=== PATIENT | male | born 1950 | race Caucasian/White ===

== ENCOUNTER 2016-12-08 04:47 | Inpatient (IN) | payer OTHER, MEDICARE ==
[2016-12-08] VITALS (8 sets, daily range): BP systolic 133–210; BP diastolic 91–129; PULSE 67–132; RESP 15–20; TEMP 97.9; O2SAT 96–99
[~2016-12-08] VITALS: Ht 177.8 cm; Wt 90.6 kg
[~2016-12-08 04:47] MED LIST: ASPI325T PO; BENZ1 PO; CLON.1 PO; FURO1TAB93 PO; HALO10 PO; METO100 PO; METO25 PO; NIFE1TAB85 PO; QUET200 PO
[2016-12-08] MEDS ORDERED: CLON0.1T PO (06:05)
[2016-12-08] MEDS ORDERED: BENZ1TAB PO (06:05)
[2016-12-08] MEDS ORDERED: METO50TA PO (06:05)
[2016-12-08] MEDS ORDERED: NIFE10CA PO (06:05)
[2016-12-08] MEDS ORDERED: HALO10TA PO (06:05)
[2016-12-08] MEDS ORDERED: ASPI1TAB69 PO (06:05)
--- NOTE | 2016-12-08 06:41 | PD ---
HPI Chief Complaint: Psychiatric Symptoms Time Seen by Provider: 05:56 Travel History International Travel<30 days: No Contact w/Intl Traveler<30days: No Traveled to known affect area: No PFSH Past Medical History Asthma: No Atrial Fibrillation: Yes Blood Disorders: No Anxiety: Yes Depression: Yes Heart Rhythm Problems: Yes Cardiovascular Problems: Yes (AFIB) Chemotherapy: No Chest Pain: No Congestive Heart Failure: No COPD: Yes Cerebrovascular Accident: No Diminished Hearing: No Glaucoma: No Hypertension: Yes Psychiatric: Yes (Schizoaffective Disorder) Myocardial Infarction: No Radiation Therapy: No Schizophrenia: Yes Sickle Cell Disease: No Sleep Apnea: No Past Surgical History AICD: No Ear Surgery: No Eye Surgery: Yes (right) Genitourinary Surgery: No Gynecologic Surgery: No Joint Replacement: No Oral Surgery: No Social History Alcohol Use: No Tobacco Use: Yes (3-4PPD) Substance Use: No Allergies-Medications (Allergen,Severity, Reaction): Coded Allergies: No Known Allergies (Verified , 12/08/16) Per pt. Reported Meds & Prescriptions Reported Meds & Active Scripts Active Reported Nifedipine 10 Mg Cap 30 Mg PO DAILY Clonidine (Clonidine HCl) 0.1 Mg Tab 0.1 Mg PO Q8 Benztropine (Benztropine Mesylate) 1 Mg Tab 1 Mg PO DAILY Haloperidol 10 Mg Tab 10 Mg PO BID Metoprolol Tartrate 50 Mg Tab 50 Mg PO BID Aspirin 81 Mg Tabdr 81 Mg PO DAILY Data Data Last Documented VS Vital Signs Date Time Temp Pulse Resp B/P Pulse Ox O2 Delivery O2 Flow Rate FiO2 12/08/16 04:48 97.9 85 15 200/127 96 Room Air Orders Complete Blood Count With Diff (12/08/16 06:11) Comprehensive Metabolic Panel (12/08/16 06:11) Alcohol (Ethanol) (12/08/16 06:11) Drug Screen, Random Urine (12/08/16 06:11) Sabiha Che MD Dec 08, 2016 06:41
--- NOTE | 2016-12-08 06:43 | PD ---
HPI Chief Complaint: Psychiatric Symptoms Time Seen by Provider: 05:56 Travel History International Travel<30 days: No Contact w/Intl Traveler<30days: No Traveled to known affect area: No History of Present Illness HPI This is a 66-year-old male who has a history of schizophrenia who presents to the emergency department reporting that he needs his psychiatric medications adjusted. He says he's been off of his medications for months. He doesn't know what medicines he is supposed to be on. He doesn't have prescribed these medicines for him. He doesn't provide much history. PFSH Past Medical History Asthma: No Atrial Fibrillation: Yes Blood Disorders: No Anxiety: Yes Depression: Yes Heart Rhythm Problems: Yes Cardiovascular Problems: Yes (AFIB) Chemotherapy: No Chest Pain: No Congestive Heart Failure: No COPD: Yes Cerebrovascular Accident: No Diminished Hearing: No Glaucoma: No Hypertension: Yes Psychiatric: Yes (Schizoaffective Disorder) Myocardial Infarction: No Radiation Therapy: No Schizophrenia: Yes Sickle Cell Disease: No Sleep Apnea: No Past Surgical History AICD: No Ear Surgery: No Eye Surgery: Yes (right) Genitourinary Surgery: No Gynecologic Surgery: No Joint Replacement: No Oral Surgery: No Social History Alcohol Use: No Tobacco Use: Yes (3-4PPD) Substance Use: No Allergies-Medications (Allergen,Severity, Reaction): Coded Allergies: No Known Allergies (Verified , 12/08/16) Per pt. Reported Meds & Prescriptions Reported Meds & Active Scripts Active Reported Nifedipine 10 Mg Cap 30 Mg PO DAILY Clonidine (Clonidine HCl) 0.1 Mg Tab 0.1 Mg PO Q8 Benztropine (Benztropine Mesylate) 1 Mg Tab 1 Mg PO DAILY Haloperidol 10 Mg Tab 10 Mg PO BID Metoprolol Tartrate 50 Mg Tab 50 Mg PO BID Aspirin 81 Mg Tabdr 81 Mg PO DAILY Review of Systems ROS Limitations: Poor Historian Physical Exam Narrative GENERAL: Disheveled SKIN: Warm and dry. HEAD: Atraumatic. Normocephalic. EYES: Pupils equal and round. No injection or drainage. ENT: Moist mucous membranes NECK: Trachea midline. CARDIOVASCULAR: Regular rate and rhythm. No murmur appreciated. RESPIRATORY: Clear to auscultation. Breath sounds equal bilaterally. GASTROINTESTINAL: Abdomen soft, non-tender, nondistended. MUSCULOSKELETAL: No obvious deformities. NEUROLOGICAL: Awake and alert. No obvious cranial nerve deficits. Moving all extremities. PSYCHIATRIC: Poor eye contact, flat affect, thought blocking Data Data Last Documented VS Vital Signs Date Time Temp Pulse Resp B/P Pulse Ox O2 Delivery O2 Flow Rate FiO2 12/08/16 04:48 97.9 85 15 200/127 96 Room Air Orders Complete Blood Count With Diff (12/08/16 06:11) Comprehensive Metabolic Panel (12/08/16 06:11) Alcohol (Ethanol) (12/08/16 06:11) Drug Screen, Random Urine (12/08/16 06:11) MDM Medical Decision Making Medical Screen Exam Complete: Yes Emergency Medical Condition: Yes Interpretation(s) Afebrile, no tachycardia, hypertensive Differential Diagnosis Schizophrenia, psychosis, substance intoxication Narrative Course This is a 66-year-old male with a history of schizophrenia who reportedly has been off of his medications for one month. He provides very little history but is quite disorganized. He makes poor eye contact. I suspect he will require psychiatric admission. Labs will be obtained and will be followed up by oncoming provider. If normal patient can be medically cleared and evaluated by psychiatry. Sabiha Che MD Dec 08, 2016 06:43
[2016-12-08 06:58] LABS: AUTOMATED NEUTROPHIL # 4.9 TH/MM3 (1.8-7.7); BASOPHIL # 0.1 TH/MM3 (0-0.2); BASOPHIL % 1.6 % (0.0-2.0); EOSINOPHIL # 0.1 TH/MM3 (0-0.4); EOSINOPHIL % 0.9 % (0.0-4.0); HEMATOCRIT 44.3 % (39.0-51.0); HEMO FLAGS DIFF FINAL; LYMPH % 18.3 % (9.0-44.0); LYMPHOCYTE # 1.3 TH/MM3 (1.0-4.8); MEAN CELL VOLUME 85.2 FL (80.0-100.0); MEAN CORPUSCULAR HEMOGLOBIN 28.8 PG (27.0-34.0); MEAN CORPUSCULAR HGB CONC 33.8 % (32.0-36.0); MONO % 7.5 % (0.0-8.0); NEUT % 71.7 % (16.0-70.0); PLATELET COUNT 134 TH/MM3 (150-450); RED BLOOD COUNT 5.21 MIL/MM3 (4.50-5.90); RED CELL DISTRIBUTION WIDTH 13.8 % (11.6-17.2); WHITE BLOOD COUNT 6.9 TH/MM3 (4.0-11.0)
[2016-12-08 07:25] LABS: ANION GAP 10 MEQ/L (5-15)
[2016-12-08 07:29] LABS: ALKALINE PHOSPHATASE 64 U/L (45-117); ALT (GPT) 20 U/L (12-78); AST (GOT) 14 U/L (15-37); BLOOD UREA NITROGEN 13 MG/DL (7-18); CHLORIDE 109 MEQ/L (98-107); GLOMERULAR FILTRATION RATE 52 ML/MIN (>89); POTASSIUM 3.5 MEQ/L (3.5-5.1); SODIUM (NA) 142 MEQ/L (136-145); TOTAL BILIRUBIN ADULT 0.8 MG/DL (0.2-1.0)
[2016-12-08] MEDS ORDERED: cloNIDine HCL 0.1 MG TAB PO ONE (07:30)
--- NOTE | 2016-12-08 07:35 | PD ---
Physical Exam Date Seen by Provider: Dec 08, 2016 Time Seen by Provider: 07:15 Narrative Patient signed out to me at 7 AM awaiting lab work for medical clearance. Laboratory Tests Test 12/08/16 06:40 Platelet Count 134 TH/MM3 (150-450) Neutrophils (%) (Auto) 71.7 % (16.0-70.0) Chloride Level 109 MEQ/L (98-107) Creatinine 1.37 MG/DL (0.60-1.30) Estimat Glomerular Filtration 52 ML/MIN (>89) Rate Random Glucose 147 MG/DL (74-106) Aspartate Amino Transf 14 U/L (15-37) (AST/SGOT) Labwork unremarkable for significant metabolic issues. Vital signs are stable in the ER. Patient is medically cleared as previously discussed with Dr. Che. Data Data Last Documented VS Vital Signs Date Time Temp Pulse Resp B/P Pulse Ox O2 Delivery O2 Flow Rate FiO2 12/08/16 07:00 189/102 12/08/16 04:48 97.9 85 15 96 Room Air Orders Complete Blood Count With Diff (12/08/16 06:11) Comprehensive Metabolic Panel (12/08/16 06:11) Alcohol (Ethanol) (12/08/16 06:11) Drug Screen, Random Urine (12/08/16 06:11) Clonidine (Catapres) (12/08/16 07:30) Labs Laboratory Tests Test 12/08/16 06:40 White Blood Count 6.9 TH/MM3 Red Blood Count 5.21 MIL/MM3 Hemoglobin 15.0 GM/DL Hematocrit 44.3 % Mean Corpuscular Volume 85.2 FL Mean Corpuscular Hemoglobin 28.8 PG Mean Corpuscular Hemoglobin 33.8 % Concent Red Cell Distribution Width 13.8 % Platelet Count 134 TH/MM3 Mean Platelet Volume 10.6 FL Neutrophils (%) (Auto) 71.7 % Lymphocytes (%) (Auto) 18.3 % Monocytes (%) (Auto) 7.5 % Eosinophils (%) (Auto) 0.9 % Basophils (%) (Auto) 1.6 % Neutrophils # (Auto) 4.9 TH/MM3 Lymphocytes # (Auto) 1.3 TH/MM3 Monocytes # (Auto) 0.5 TH/MM3 Eosinophils # (Auto) 0.1 TH/MM3 Basophils # (Auto) 0.1 TH/MM3 CBC Comment DIFF FINAL Differential Comment Sodium Level 142 MEQ/L Potassium Level 3.5 MEQ/L Chloride Level 109 MEQ/L Carbon Dioxide Level 23.0 MEQ/L Anion Gap 10 MEQ/L Blood Urea Nitrogen 13 MG/DL Creatinine 1.37 MG/DL Estimat Glomerular Filtration 52 ML/MIN Rate Random Glucose 147 MG/DL Calcium Level 9.0 MG/DL Total Bilirubin 0.8 MG/DL Aspartate Amino Transf 14 U/L (AST/SGOT) Alanine Aminotransferase 20 U/L (ALT/SGPT) Alkaline Phosphatase 64 U/L Total Protein 6.5 GM/DL Albumin 3.5 GM/DL Ethyl Alcohol Level LESS THAN 3 MG/DL [facility] Medical Record Reviewed: Yes Supervised Visit with JOANA: No Diagnosis Primary Impression: Schizoaffective disorder Condition: Stable Sulema Aviles MD Dec 08, 2016 07:35
[2016-12-08 10:28] LABS: AMPHETAMINE, URINE NEG (NEG); BARBITURATES, URINE NEG (NEG); COCAINE, URINE NEG (NEG)
--- NOTE | 2016-12-08 16:46 | PD ---
History of Present Illness Chief Complaint: Psychiatric Symptoms Time Seen by Provider: 16:45 Travel History International Travel<30 Days: No Contact w/Intl Traveler<30days: No Known affected area: No History of Present Illness: History of Present Illness HPI This is a 66-year-old male who has a history of schizophrenia who presents to the emergency department reporting that he needs his psychiatric medications adjusted. He says he's been off of his medications for months. He doesn't know what medicines he is supposed to be on. He doesn't have prescribed these medicines for him. He doesn't provide much history. Current toxicology is negative for any substances Patient is seen in main ED. He appears internally stimulated . He is having difficulty focusing as well as appears paranoid. He is restless with akathisia and he keeps sitting and standing up during the visit. He is unable to provide any further information and it is determined that he requires continued observation and care. I will place him under a BA at this time. ON LICENSE OF [facility] Past Medical History Asthma: No Atrial Fibrillation: Yes Blood Disorders: No Anxiety: Yes Depression: Yes Heart Rhythm Problems: Yes Cardiovascular Problems: Yes (AFIB) Chemotherapy: No Chest Pain: No Congestive Heart Failure: No COPD: Yes Cerebrovascular Accident: No Diminished Hearing: No Glaucoma: No Hypertension: Yes Psychiatric: Yes (Schizoaffective Disorder) Myocardial Infarction: No Radiation Therapy: No Schizophrenia: Yes Sickle Cell Disease: No Sleep Apnea: No Past Surgical History AICD: No Ear Surgery: No Eye Surgery: Yes (right) Genitourinary Surgery: No Gynecologic Surgery: No Joint Replacement: No Oral Surgery: No Psychiatric History Psychiatric History Hx Psychiatric Treatment: Patient has a long psychiatric history with this facility dating back to 2005. Patient has a history of medication and treatment noncompliance with disruptive and aggressive behaviors. Patient reports that he is seen at [facility] for medication management. History of Inpatient Treatment: Yes Social History unable to obtain Hx Alcohol Use: No Hx Tobacco Use: Yes (3-4PPD) Hx Substance Use: No Other Substances Used: Denies Hx of Substance Use Treatment: No Family Psychiatric History unable to obtain Allergies-Medications (Allergen,Severity, Reaction): Coded Allergies: No Known Allergies (Verified , 12/08/16) Per pt. Reported Meds & Prescriptions Reported Meds & Active Scripts Active Reported Nifedipine 10 Mg Cap 30 Mg PO DAILY Clonidine (Clonidine HCl) 0.1 Mg Tab 0.1 Mg PO Q8 Benztropine (Benztropine Mesylate) 1 Mg Tab 1 Mg PO DAILY Haloperidol 10 Mg Tab 10 Mg PO BID Metoprolol Tartrate 50 Mg Tab 50 Mg PO BID Aspirin 81 Mg Tabdr 81 Mg PO DAILY Review of Systems ROS Limitations: Clinical Condition, Psychotic Exam Exam Limitations: Psychotic Alert: Yes [place]: Person Affect: Other (appears afrraid) Eye Contact: Fleeting Memory Intact: Comment (unable to complete) MDM Medical Decision Making Medical Record Reviewed: Yes Assessment/Plan At this time a BA will be completed. He requires inpatietn care at this time or at least observation and stabilization in J pod until further evaluation. Orders Complete Blood Count With Diff (12/08/16 06:11) Comprehensive Metabolic Panel (12/08/16 06:11) Alcohol (Ethanol) (12/08/16 06:11) Drug Screen, Random Urine (12/08/16 06:11) Clonidine (Catapres) (12/08/16 07:30) Psych Screen (12/08/16 12:46) Results Vital Signs Date Time Temp Pulse Resp B/P Pulse Ox O2 Delivery O2 Flow Rate FiO2 12/08/16 10:00 18 154/91 96 Room Air 12/08/16 07:00 189/102 12/08/16 04:48 97.9 85 15 200/127 96 Room Air Laboratory Tests Test 12/08/16 12/08/16 06:40 10:00 White Blood Count 6.9 Red Blood Count 5.21 Hemoglobin 15.0 Hematocrit 44.3 Mean Corpuscular Volume 85.2 Mean Corpuscular Hemoglobin 28.8 Mean Corpuscular Hemoglobin 33.8 Concent Red Cell Distribution Width 13.8 Platelet Count 134 Mean Platelet Volume 10.6 Neutrophils (%) (Auto) 71.7 Lymphocytes (%) (Auto) 18.3 Monocytes (%) (Auto) 7.5 Eosinophils (%) (Auto) 0.9 Basophils (%) (Auto) 1.6 Neutrophils # (Auto) 4.9 Lymphocytes # (Auto) 1.3 Monocytes # (Auto) 0.5 Eosinophils # (Auto) 0.1 Basophils # (Auto) 0.1 CBC Comment DIFF FINAL Differential Comment Sodium Level 142 Potassium Level 3.5 Chloride Level 109 Carbon Dioxide Level 23.0 Anion Gap 10 Blood Urea Nitrogen 13 Creatinine 1.37 Estimat Glomerular Filtration 52 Rate Random Glucose 147 Calcium Level 9.0 Total Bilirubin 0.8 Aspartate Amino Transf 14 (AST/SGOT) Alanine Aminotransferase 20 (ALT/SGPT) Alkaline Phosphatase 64 Total Protein 6.5 Albumin 3.5 Ethyl Alcohol Level LESS THAN 3 Urine Opiates Screen NEG Urine Barbiturates Screen NEG Urine Amphetamines Screen NEG Urine Benzodiazepines Screen NEG Urine Cocaine Screen NEG Urine Cannabinoids Screen NEG Diagnosis Primary Impression: Schizoaffective disorder Condition: Stable Problem Qualifiers Primary Impression: Schizoaffective disorder Qualified Code: F25.9 - Schizoaffective disorder, unspecified type Kylie Zamora Dec 08, 2016 16:46
[2016-12-08] MEDS ORDERED: cloNIDine HCL 0.2 MG TAB PO ONE (18:45)
[2016-12-08] MEDS: METOPROLOL TARTRATE 50 MG TAB PO SCH (19:24)
[2016-12-08] MEDS: BENZTROPINE MESYLATE 1 MG TAB PO SCH (19:24)
[2016-12-08] MEDS: HALOPERIDOL 10 MG TAB PO SCH (19:24)
[2016-12-08] MEDS: cloNIDine HCL 0.1 MG TAB PO SCH (21:55)
[2016-12-09] MEDS ORDERED: LORazepam 2 MG/ML VIAL - age > 65 yrs IM PRN (00:45)
[2016-12-09] MEDS ORDERED: diphenhydrAMINE HCL 50 MG/ML VIAL - HS PRN IM (00:45)
[2016-12-09] MEDS ORDERED: ACETAMINOPHEN 325 MG TAB PO PRN (00:45)
[2016-12-09] MEDS ORDERED: ALUMINUM/MAGNESIUM/SIMETH 30 ML CUP PO PRN (00:45)
[2016-12-09] MEDS ORDERED: MAGNESIUM HYDROXIDE SUSP 30 ML CUP PO PRN (00:45)
[2016-12-09 00:55] VITALS: BP 153/90; PULSE 97; RESP 17; TEMP 98.5; O2SAT 97
[2016-12-09] MEDS: cloNIDine HCL 0.1 MG TAB PO SCH ×3 (05:51→20:58)
[2016-12-09 06:26] VITALS: BP 140/79; PULSE 76; RESP 17; TEMP 97.9; O2SAT 95
--- NOTE | 2016-12-09 08:55 | HHI.HP ---
Provisional Diagnosis Admission Date Dec 09, 2016 at 00:24 [place] I. Skis affective disorder depressed [place] II. Passive-dependent trait [place] III. Please see the emergency room evaluation [place] IV. Moderate stress [place] V. GAF of 40 Certification of Person's Competence To Provide Express and Informed Consent I have personally examined Luis Daniel Desir , a person being served at [facility] on, Dec 09, 2016 08:48. Express and informed consent means consent voluntarily given in writing, by a competent person, after sufficient explanation and disclosure of the subject matter involved to enable the person to make a knowing and willful decision without any element of force, fraud, deceit, duress, or other form of constraint or coercion. This person is 18 years of age or older, is not now known to be incompetent to consent to treatment with a guardian advocate, and does not have a health care surrogate or proxy currently making medical treatment decisions. I have found this person to be one of the following: [x] Competent to provide express and informed consent, as defined above, for voluntary admission to this facility and is competent to provide express and informed consent for treatment. He/she has the consistent capacity to make well reasoned, willful, and knowing decisions concerning his or her medical or mental health treatment. The person fully and consistently understands the purpose of the admission for examination/placement and is fully capable of personally exercising all rights [place] Incompetent to provide express and informed consent to voluntary admission, and this is incompetent to provide express and informed consent to treatment. The person must be transferred to involuntary status and a petition for a guardian advocate filed with the Circuit Court. [] Refusing to provide express and informed consent to voluntary admission but is competent to provide express and informed consent for treatment. The person must be discharged or transferred to involuntary status. Form shall be completed within 24 hours of a person's arrival at the receiving facility and filed in the clinical record of each person: 1. Admitted on a voluntary basis 2. Permitted to provide express and informed consent to his/her own treatment 3. Allowed to transfer from involuntary to voluntary status 4. Prior to permitting a person to consent to his or her own treatment after having been previously found incompetent to consent to treatment. History of Present Illness Capacity: Has Capacity HPI This is 66-year-old white male with a known history of mental illness came to the emergency room for help because he has been talking to himself getting paranoid agitated restless for the past few months. He claimed that he was not feeling well and wanted some help he denied any suicidal ideation intentions or plan he denied any homicidal ideation intentions or plan. He has been going to [facility] but has been noncompliant in taking medication patient denied any alcohol or drug use and/or abuse. No behavior or management problem reported. He has been observed talking to himself and keeping to himself. Review of Systems Except as stated in HPI: all other systems reviewed are Neg Psychiatric: COMPLAINS OF: Confusion, Mood changes, Depression, Hallucinations , Delusions Past Psych History Psychological trauma history Patient denied any physical verbal or sexual abuse growing up Violence risk - others (6 mos) Patient denies Violence risk - self (6 mos) Patient denied any suicidal ideation intentions or plan Substance Abuse History Drugs/Alcohol past 12 months Patient denied any alcohol or drug abuse Past Family Social History Coded Allergies: No Known Allergies (Verified , 12/08/16) Per pt. Reported Medications Nifedipine 10 Mg Cap30 Mg PO DAILY #120 CAP Ref 0 12/08/16 Clonidine 0.1 Mg Tab0.1 Mg PO q8 #60 TAB Ref 0 12/08/16 Benztropine 1 Mg Tab1 Mg PO DAILY #30 TAB Ref 0 12/08/16 Haloperidol 10 Mg Tab10 Mg PO BID Ref 0 12/08/16 Metoprolol Tartrate 50 Mg Tab50 Mg PO BID #60 TAB Ref 0 12/08/16 Aspirin 81 Mg Tabdr81 Mg PO DAILY 12/08/16 Current Medications Medications (Trade) Dose Ordered Sig/Mesha Route Start Time Stop Time Status Last Admin (Ecotrin Ec) 81 mg DAILY PO 12/09/16 09:00 (Cogentin) 1 mg DAILY PO 12/08/16 19:00 12/08/16 19:24 (Catapres) 0.1 mg Q8HR PO 12/08/16 22:00 12/09/16 05:51 (Haldol) 10 mg BID PO 12/08/16 21:00 12/08/16 19:24 (Lopressor) 50 mg BID PO 12/08/16 21:00 12/08/16 19:24 (Procardia Xl) 30 mg DAILY PO 12/09/16 09:00 (Ativan) 0.5 mg Q12H PRN PO 12/09/16 00:45 (Ativan Inj) 0.5 mg Q12H PRN IM 12/09/16 00:45 (Benadryl) 50 mg HS PRN PO 12/09/16 00:45 (Benadryl Inj) 50 mg HS PRN IM 12/09/16 00:45 (Desyrel) 50 mg HS PRN PO 12/09/16 00:45 (Tylenol) 650 mg Q4H PRN PO 12/09/16 00:45 (Milk Of Magnesia Liq) 30 ml DAILY PRN PO 12/09/16 00:45 (Mag-Al Plus Susp Liq) 30 ml Q6H PRN PO 12/09/16 00:45 (Habitrol 21 Mg Patch.24 Hr) 1 patch DAILY T-DERMAL 12/09/16 09:00 Miscellaneous Information 1 HS T-DERMAL 12/09/16 21:00 Family History Positive for depression Social History Patient was born in [facility] he has one brother and one sister. He was close to both of his parents. His childhood was described as okay and he denied any physical verbal or sexual abuse growing up. He claimed that he finished high school and 3 years of college. He then joined the [employer] and served for 4 years and was honorable discharge. He was for 3 years and he does not have any children. He denied any legal difficulty. He has been hospitalized several times in a psychiatric setting and patient has been noncompliant in taking medication and decompensating. Patient's Strengths (min. 2) Patient is cooperative and willing to take the medication Physical Exam Please see the emergency room evaluation Vital Signs Vital Signs Date Time Temp Pulse Resp B/P Pulse Ox O2 Delivery O2 Flow Rate FiO2 12/09/16 06:26 97.9 76 17 140/79 95 12/08/16 18:29 Room Air Mental Status Examination This is a 66-year-old white male who looks about the same as his stated age was mildly guarded and agitated and talking to himself. But he was able to provide some information. He was cooperative. His speech was slow without any evidence of loose association but he did observe to be talking to himself. He was internally stimulated. He was guarded and suspicious and paranoid. His affect was flat. He denied any suicidal and/or homicidal ideation intentions or plan. He seems to be of low average intelligence with poor recent memory and concentration his insight is limited and his judgment seems to be questionable. His concentration is poor his fund of knowledge is average his gait is normal Assessment & Plan Problem List: (1) Schizoaffective disorder ICD Code: F25.9 Assessment & Plan Estimated LOS:7 days. This is a 66-year-old white male with a diagnosis of schizoaffective disorder patient has been noncompliant in taking medication. Has been responding to internal stimuli and was paranoid came to the hospital for help we'll resume his medication and stabilize him. Admit to observe evaluate and treat Patient will participate in all the therapeutic activity on the floor We will ask social work program coordinator for aftercare and discharge planning We'll resume his Haldol and Cogentin Side effect another alternative treatment were explained to the patient Vital signs every shift Request HC Surrog/Guard Advoc?: No Problem Qualifiers (1) Schizoaffective disorder: Qualified Code: F25.9 - Schizoaffective disorder, unspecified type Joao Matias MD Dec 09, 2016 08:55
[2016-12-09] MEDS: BENZTROPINE MESYLATE 2 MG TAB PO SCH ×2 (09:00→20:57)
[2016-12-09] MEDS: HALOPERIDOL 10 MG TAB PO SCH ×4 (09:00→21:00)
[2016-12-09] MEDS: BENZTROPINE MESYLATE 1 MG TAB PO SCH (09:05)
[2016-12-09] MEDS: METOPROLOL TARTRATE 50 MG TAB PO SCH ×2 (09:05→20:57)
[2016-12-09] MEDS: ASPIRIN EC 81 MG TABEC PO SCH (09:06)
[2016-12-09] MEDS: NIFEdipine 30 MG SUSTAINED RELEASE TAB PO SCH (09:07)
[2016-12-09] MEDS: NICOTINE 21 MG/24 HR PATCH T-DERMAL SCH (09:07)
--- NOTE | 2016-12-09 11:21 | PD.CONS ---
HPI Service [facility] Consult Requested By Psychiatric services Reason for Consult Blood pressure management Primary Care Physician [facility] Diagnoses: History of Present Illness This is a 65 year old male patient with a past medical history of schizophrenia , anxiety/depression, atrial fibrillation and hypertension. Patient currently in inpatient psychiatric center and we have been consulted for blood pressure management. Patient is a poor historian and denies medial history or current medial concerns. Information gathered from prior computer charting. Patient denies headache, changes in vision, shortness of breath, N/V/D/C, fevers or chills. Patient blood pressure when he arrived was 200/127 now 140/79. Review of Systems ROS Limitations: Poor Historian Except as stated in HPI: all other systems reviewed are Neg Past Family Social History Allergies: Coded Allergies: No Known Allergies (Verified , 12/08/16) Per pt. Past Medical History schizophrenia, anxiety/depression, atrial fibrillation and hypertension Past Surgical History Right eye surgery Reported Medications Nifedipine 10 Mg Cap 30 Mg PO DAILY Clonidine (Clonidine HCl) 0.1 Mg Tab 0.1 Mg PO Q8 Benztropine (Benztropine Mesylate) 1 Mg Tab 1 Mg PO DAILY Haloperidol 10 Mg Tab 10 Mg PO BID Metoprolol Tartrate 50 Mg Tab 50 Mg PO BID Aspirin 81 Mg Tabdr 81 Mg PO DAILY Active Ordered Medications Current Medications Medications (Trade) Dose Ordered Sig/Mesha Route Start Time Stop Time Status Last Admin (Ecotrin Ec) 81 mg DAILY PO 12/09/16 09:00 12/09/16 09:06 (Cogentin) 1 mg DAILY PO 12/08/16 19:00 12/09/16 09:05 (Catapres) 0.1 mg Q8HR PO 12/08/16 22:00 12/09/16 05:51 (Haldol) 10 mg BID PO 12/08/16 21:00 12/09/16 09:06 (Lopressor) 50 mg BID PO 12/08/16 21:00 12/09/16 09:05 (Procardia Xl) 30 mg DAILY PO 12/09/16 09:00 12/09/16 09:07 (Ativan) 0.5 mg Q12H PRN PO 12/09/16 00:45 (Ativan Inj) 0.5 mg Q12H PRN IM 12/09/16 00:45 (Benadryl) 50 mg HS PRN PO 12/09/16 00:45 (Benadryl Inj) 50 mg HS PRN IM 12/09/16 00:45 (Desyrel) 50 mg HS PRN PO 12/09/16 00:45 (Tylenol) 650 mg Q4H PRN PO 12/09/16 00:45 (Milk Of Magnesia Liq) 30 ml DAILY PRN PO 12/09/16 00:45 (Mag-Al Plus Susp Liq) 30 ml Q6H PRN PO 12/09/16 00:45 (Habitrol 21 Mg Patch.24 Hr) 1 patch DAILY T-DERMAL 12/09/16 09:00 12/09/16 09:07 Miscellaneous Information 1 HS T-DERMAL 12/09/16 21:00 (Haldol) 10 mg BID PO 12/09/16 09:00 12/09/16 09:00 (Cogentin) 2 mg Q12HR PO 12/09/16 09:00 12/09/16 09:00 Family History Father had heart disease first [place] at 49 Social History denies tobacco use at this time reports he quit, "a few months ago," history of smoking 3-4 PPD denies ETOH use Physical Exam Vital Signs Vital Signs Date Time Temp Pulse Resp B/P Pulse Ox O2 Delivery O2 Flow Rate FiO2 12/09/16 06:26 97.9 76 17 140/79 95 12/09/16 00:55 98.5 97 17 153/90 97 12/08/16 23:34 67 18 133/94 99 12/08/16 22:38 112 20 195/129 97 12/08/16 21:00 80 20 152/91 96 12/08/16 19:10 184/120 12/08/16 19:10 132 20 98 12/08/16 18:29 123 210/110 97 Room Air Physical Exam GENERAL: This is a well-nourished, well-developed patient, in no apparent distress. SKIN: No rashes, ecchymoses or lesions. Cool and dry. HEAD: Atraumatic. Normocephalic. No temporal or scalp tenderness. EYES: Extraocular motions intact. No scleral icterus. No injection or drainage. CARDIOVASCULAR: Regular rate and rhythm without murmurs, gallops, or rubs. RESPIRATORY: Clear to auscultation. Breath sounds equal bilaterally. No wheezes , rales, or rhonchi. GASTROINTESTINAL: Abdomen soft, non-tender, nondistended. No hepato-splenomegaly , or palpable masses. No guarding. MUSCULOSKELETAL: Extremities without clubbing, cyanosis, or edema. No joint tenderness, effusion, or edema noted. No calf tenderness. Negative Homans sign bilaterally. NEUROLOGICAL: Awake and alert. No focal deficits. Motor and sensory grossly within normal limits. Five out of 5 muscle strength in all muscle groups. Normal speech. Assessment and Plan Assessment and Plan This is a 65 year old male patient with a past medical history of schizophrenia , anxiety/depression, atrial fibrillation and hypertension. Patient currently in inpatient psychiatric center and we have been consulted for blood pressure management. Patient is a poor historian and denies medial history or current medial concerns. Information gathered from prior computer charting. Patient denies headache, changes in vision, shortness of breath, N/V/D/C, fevers or chills. Patient blood pressure when he arrived was 200/127 now 140/79. Schizoaffective disorder- management per psychiatric team Hypertension: continue metoprolol 50 mg BID Procardia XL 30 mg Clonidine 0.1 mg Q8H Monitor BP trend Atrial fibrillation- rate controlled continue aspirin daily metoprolol 50 mg daily CKD- BUN 13, creatinine 1.37, GFR 52 appears to be at baseline avoid nephrotoxic agents encourage PO fluid intake DVT prophylaxis patient ambulatory- low risk discussed with patient and nursing Patient appears medically stable will sign off- recommend patient continue home medication and recommend patient follow up with PCP after DC Written by Desire Peguero, acting as scribe for Dr. Hidalgo on 12/09/16 at 11:19. Attending Statement All or portions of this note were transcribed by scribe Desire Peguero. I, Dr. Julián Acevedo personally performed the history, physical exam, and medical decision making; and confirmed the accuracy of the information in the transcribed note. Authenticated by Dr. Julián Acevedo on 12/09/16 at 11:50 Desire Peguero Dec 09, 2016 11:21 Julián Lucas MD Dec 18, 2016 13:26
[2016-12-09 13:14] VITALS: BP 110/85; PULSE 79
[2016-12-09 17:43] VITALS: BP 129/62; PULSE 73; RESP 18; TEMP 98.3; O2SAT 98
[2016-12-09 20:13] VITALS: BP 129/62; PULSE 73; RESP 18; TEMP 98.3; O2SAT 98
[2016-12-09] MEDS: diphenhydrAMINE HCL 50 MG CAP - HS PRN PO (20:58)
[2016-12-09] MEDS: REMOVE OLD NICOTINE PATCH T-DERMAL SCH (21:00)
[2016-12-10 06:16] VITALS: BP 99/60; PULSE 56; RESP 18; TEMP 96.4; O2SAT 95
[2016-12-10] MEDS: cloNIDine HCL 0.1 MG TAB PO SCH (06:36)
--- NOTE | 2016-12-10 07:12 | EKG ---
Date Performed: 12/08/2016 Time Performed: 23:11:04 PTAGE: 66 years EKG: Atrial fibrillation Borderline left axis deviation Nonspecific ST-T wave change Poor initia l anterior forces, cannot exclude septal myocardial infarction of undetermined age Cannot exclude inf erior wall myocardial infarction of undetermined age ABNORMAL ECG Compared to PREVIOUS TRACING , the heart rate is slower and the ST-T changes anterolaterally are some what more prominent. PREVIOUS TRACING 02/24/2016 12.56.25 DOCTOR: Andrew Giraldo Interpretating Date/Time 12/10/2016 07:11:24
[2016-12-10 08:02] LABS: ANION GAP 8 MEQ/L (5-15); BICARBONATE 26.1 MEQ/L (21.0-32.0); BLOOD UREA NITROGEN 17 MG/DL (7-18); CHLORIDE 108 MEQ/L (98-107); GLOMERULAR FILTRATION RATE 61 ML/MIN (>89); HDL CHOLESTEROL 59.8 MG/DL (40.0-60.0); LDL CHOLESTEROL 71 MG/DL (0-99); SODIUM (NA) 142 MEQ/L (136-145)
[2016-12-10 08:03] LABS: POTASSIUM 4.2 MEQ/L (3.5-5.1)
[2016-12-10] MEDS ORDERED: cloNIDine HCL 0.1 MG TAB PO PRN (08:30)
[2016-12-10] MEDS: ASPIRIN EC 81 MG TABEC PO SCH (08:55)
[2016-12-10] MEDS: BENZTROPINE MESYLATE 2 MG TAB PO SCH ×2 (08:56→20:50)
[2016-12-10] MEDS: NIFEdipine 30 MG SUSTAINED RELEASE TAB PO SCH (08:56)
[2016-12-10] MEDS: METOPROLOL TARTRATE 50 MG TAB PO SCH ×2 (08:56→20:50)
[2016-12-10] MEDS: HALOPERIDOL 10 MG TAB PO SCH ×4 (08:57→21:00)
[2016-12-10] MEDS: NICOTINE 21 MG/24 HR PATCH T-DERMAL SCH (08:57)
[2016-12-10] MEDS: BENZTROPINE MESYLATE 1 MG TAB PO SCH (08:57)
[2016-12-10 11:35] LABS: HEMOGLOBIN A1a 0.8 %; HEMOGLOBIN A1b 1.7 %; HEMOGLOBIN Ao 85.3 %; HEMOGLOBIN P3 3.9 %
[2016-12-10 16:39] VITALS: BP 147/105; PULSE 93; RESP 18; TEMP 97.5; O2SAT 99
--- NOTE | 2016-12-10 17:20 | HHI.PYPN ---
Subjective Remarks Patient seen in his room with nurse Flory, patient sitting on his bed calm quiet with poor eye contact appears to be responding to internal stimuli though he stating "I'm okay". Patient compliant medications no other behavioral problems for now continue medication no change Review of Systems Except as stated in HPI: all other systems reviewed are Neg Objective Alert: Yes [place]: Person Mood: Depressed Affect: Other (appears afrraid) Memory Intact: Comment (unable to complete) Hallucinations: Other (pierced to be responding to internal stimuli) Delusions: Yes Delusion Type: Paranoid (vague) Suicidal: Ideation Homicidal: Ideation (denies denies) Insight/Judgement Very poor Labs Test 12/10/16 06:57 Sodium Level 142 MEQ/L Potassium Level 4.2 MEQ/L Chloride Level 108 MEQ/L Carbon Dioxide Level 26.1 MEQ/L Anion Gap 8 MEQ/L Blood Urea Nitrogen 17 MG/DL Creatinine 1.20 MG/DL Estimat Glomerular Filtration 61 ML/MIN Rate Random Glucose 90 MG/DL Hemoglobin A1c 5.8 % Calcium Level 9.2 MG/DL Triglycerides Level 146 MG/DL Cholesterol Level 160 MG/DL LDL Cholesterol 71 MG/DL HDL Cholesterol 59.8 MG/DL Cholesterol/HDL Ratio 2.67 RATIO Vitals/IOs Vital Signs Date Time Temp Pulse Resp B/P Pulse Ox O2 Delivery O2 Flow Rate FiO2 12/10/16 16:39 97.5 93 18 147/105 99 12/08/16 18:29 Room Air Assessment & Plan Problem List: (1) Schizoaffective disorder, depressive type ICD Code: F25.1 Assessment & Plan Patient remains somewhat depressed appears to be responding to internal stimuli , compliant medications I feel his diagnosis may be better express to schizoaffective disorder depressive type F 25.1 Estimated LOS: days Justification for Cont. Inpt. At this time patient decompensated placed in a lower level of care Discharge Planning To be determined Request HC Surrog/Guard Advoc?: Justin Thomason MD Dec 10, 2016 17:20
[2016-12-10] MEDS: diphenhydrAMINE HCL 50 MG CAP - HS PRN PO (20:50)
[2016-12-10] MEDS: REMOVE OLD NICOTINE PATCH T-DERMAL SCH (20:51)
[2016-12-11 05:36] VITALS: BP 144/76; PULSE 88; RESP 16; TEMP 97.8; O2SAT 96
[2016-12-11] MEDS: NICOTINE 21 MG/24 HR PATCH T-DERMAL SCH (09:00)
[2016-12-11] MEDS: BENZTROPINE MESYLATE 1 MG TAB PO SCH (09:27)
[2016-12-11] MEDS: NIFEdipine 30 MG SUSTAINED RELEASE TAB PO SCH (09:27)
[2016-12-11] MEDS: METOPROLOL TARTRATE 50 MG TAB PO SCH ×2 (09:27→21:08)
[2016-12-11] MEDS: HALOPERIDOL 10 MG TAB PO SCH ×2 (09:28→21:08)
[2016-12-11] MEDS: BENZTROPINE MESYLATE 2 MG TAB PO SCH (09:29)
[2016-12-11] MEDS: ASPIRIN EC 81 MG TABEC PO SCH (09:29)
--- NOTE | 2016-12-11 14:35 | HHI.PYPN ---
Subjective Remarks Patient seen with medical student Ina, chart review, patient overall, cooperative states he is feeling better today than yesterday his sleep has improved his appetite is fair. He does denies suicidality homicidality voices or visions. He now appears to be starting to think about placement issues when these discharge Review of Systems Except as stated in HPI: all other systems reviewed are Neg Objective Alert: Yes [place]: Person Mood: Depressed Affect: Other (appears afrraid) Memory Intact: Comment (unable to complete) Hallucinations: Other (pierced to be responding to internal stimuli) Delusions: Yes Delusion Type: Paranoid (vague) Suicidal: Ideation Homicidal: Ideation (denies denies) Insight/Judgement Poor Vitals/IOs Vital Signs Date Time Temp Pulse Resp B/P Pulse Ox O2 Delivery O2 Flow Rate FiO2 12/11/16 05:36 97.8 88 16 144/76 96 12/08/16 18:29 Room Air Assessment & Plan Problem List: (1) Schizoaffective disorder, depressive type ICD Code: F25.1 Assessment & Plan Estimated LOS: days patient continues to show some slow improvement now denying suicidality voices or visions. Is compliant with medications. Justification for Cont. Inpt. At this time patient will decompensate if placed in a lower level of care Discharge Planning To be determined Request HC Surrog/Guard Advoc?: No Justin Ivy MD Dec 11, 2016 14:35
[2016-12-11] MEDS: REMOVE OLD NICOTINE PATCH T-DERMAL SCH (21:00)
[2016-12-11] MEDS: traZODone HCL 50 MG TAB PO PRN (21:08)
[2016-12-11 21:49] VITALS: BP 93/61; PULSE 100
[2016-12-12 05:43] VITALS: BP 102/69; PULSE 74; RESP 18; TEMP 97.5; O2SAT 97
[2016-12-12] MEDS: NICOTINE 21 MG/24 HR PATCH T-DERMAL SCH (09:00)
[2016-12-12] MEDS: METOPROLOL TARTRATE 50 MG TAB PO SCH ×2 (09:24→20:28)
[2016-12-12] MEDS: BENZTROPINE MESYLATE 1 MG TAB PO SCH (09:24)
[2016-12-12] MEDS: HALOPERIDOL 10 MG TAB PO SCH ×2 (09:24→20:28)
[2016-12-12] MEDS: NIFEdipine 30 MG SUSTAINED RELEASE TAB PO SCH (09:24)
[2016-12-12] MEDS: ASPIRIN EC 81 MG TABEC PO SCH (09:25)
--- NOTE | 2016-12-12 13:19 | HHI.PYPN ---
Subjective Remarks Pt appears to exhibit thought blocking and demonstrates loose associations. Also appears to experience EPS and early T.D. sx. Review of Systems ROS Limitations: Clinical Condition Except as stated in HPI: all other systems reviewed are Neg Psychiatric: COMPLAINS OF: Anxiety Objective Alert: Yes [place]: Person Mood: Anxious, Depressed Affect: Restricted, Other (appears afrraid) Memory Intact: Comment (unable to complete) Hallucinations: Auditory, Other (pierced to be responding to internal stimuli) Delusions: Yes Delusion Type: Paranoid (vague) Suicidal: Ideation Homicidal: Ideation (denies denies) Insight/Judgement Impaired. Vitals/IOs Vital Signs Date Time Temp Pulse Resp B/P Pulse Ox O2 Delivery O2 Flow Rate FiO2 12/12/16 05:43 97.5 74 18 102/69 97 Manual Cuff/Auscultation 12/08/16 18:29 Room Air Assessment & Plan Problem List: (1) Schizoaffective disorder, depressive type ICD Code: F25.1 Assessment & Plan Estimated LOS: days Still psychotic and unable to care for self. Appears to be having side effects from Haldol and this MD will attempt to change him to Abilify. Justification for Cont. Inpt. Psychotic and unable to care for self. Request HC Surrog/Guard Advoc?: No Andrew Elaine MD Dec 12, 2016 13:19
[2016-12-12 18:41] VITALS: BP 164/114; PULSE 101; RESP 18; TEMP 97.1; O2SAT 98
[2016-12-12] MEDS: diphenhydrAMINE HCL 50 MG CAP - HS PRN PO (20:27)
[2016-12-12] MEDS: ARIPiprazole 2 MG TAB PO SCH ×2 (20:28→21:10)
[2016-12-12] MEDS: REMOVE OLD NICOTINE PATCH T-DERMAL SCH (21:00)
[2016-12-13] MEDS: traZODone HCL 50 MG TAB PO PRN ×2 (03:54→21:33)
[2016-12-13 05:51] VITALS: BP 139/87; PULSE 75; RESP 16; TEMP 98.1; O2SAT 95
[2016-12-13] MEDS: HALOPERIDOL 10 MG TAB PO SCH ×2 (08:23→21:34)
[2016-12-13] MEDS: BENZTROPINE MESYLATE 1 MG TAB PO SCH (08:23)
[2016-12-13] MEDS: NIFEdipine 30 MG SUSTAINED RELEASE TAB PO SCH (08:24)
[2016-12-13] MEDS: NICOTINE 21 MG/24 HR PATCH T-DERMAL SCH (08:24)
[2016-12-13] MEDS: METOPROLOL TARTRATE 50 MG TAB PO SCH ×2 (08:24→21:34)
[2016-12-13] MEDS: ASPIRIN EC 81 MG TABEC PO SCH (08:24)
--- NOTE | 2016-12-13 10:58 | HHI.PYPN ---
Subjective Remarks Patient continues to appear easily confused, slow to process, and unable to care for himself. He is disoriented to situation and thus far appears unable to make plans to care for himself when he is discharged. Review of Systems ROS Limitations: Clinical Condition Except as stated in HPI: all other systems reviewed are Neg Objective Alert: Yes [place]: Person Mood: Anxious Affect: Restricted, Other (appears afrraid) Memory Intact: Immediate, Comment (unable to complete) Hallucinations: Auditory, Other (pierced to be responding to internal stimuli) Delusions: Yes Delusion Type: Paranoid (vague) Suicidal: Ideation Homicidal: Ideation (denies denies) Insight/Judgement Significantly impaired. Vitals/IOs Vital Signs Date Time Temp Pulse Resp B/P Pulse Ox O2 Delivery O2 Flow Rate FiO2 12/13/16 05:51 98.1 75 16 139/87 95 Assessment & Plan Problem List: (1) Schizoaffective disorder, depressive type ICD Code: F25.1 Assessment & Plan Estimated LOS: 3 days. Days patient continues to require significant care as he is cognitively unable to care for himself and poses an ongoing danger to himself. This physician will speak to social work administrator regarding possible placement options. Justification for Cont. Inpt. Patient remains significantly confused and demonstrates poor cognitive processing. He is unable to care for himself. Request HC Surrog/Guard Advoc?: No Andrew Elaine MD Dec 13, 2016 10:58
[2016-12-13 20:14] VITALS: BP 118/63; PULSE 70; RESP 16; TEMP 97.8; O2SAT 95
[2016-12-13] MEDS: REMOVE OLD NICOTINE PATCH T-DERMAL SCH (21:00)
[2016-12-14 06:26] VITALS: BP 136/97; PULSE 70; RESP 18; TEMP 97.7; O2SAT 99
[2016-12-14] MEDS: METOPROLOL TARTRATE 50 MG TAB PO SCH ×2 (08:26→21:16)
[2016-12-14] MEDS: BENZTROPINE MESYLATE 1 MG TAB PO SCH (08:26)
[2016-12-14] MEDS: HALOPERIDOL 10 MG TAB PO SCH ×2 (08:26→21:16)
[2016-12-14] MEDS: NICOTINE 21 MG/24 HR PATCH T-DERMAL SCH (08:26)
[2016-12-14] MEDS: ASPIRIN EC 81 MG TABEC PO SCH (08:26)
[2016-12-14] MEDS: NIFEdipine 30 MG SUSTAINED RELEASE TAB PO SCH (08:26)
--- NOTE | 2016-12-14 12:36 | HHI.PYPN ---
Subjective Remarks Patient is not making adequate progress. He is not responding well to antipsychotic therapy. He remains easily confused, disoriented and appears to be responding to internal stimuli. Review of Systems ROS Limitations: Clinical Condition Except as stated in HPI: all other systems reviewed are Neg Objective Alert: Yes [place]: Person Mood: Anxious Affect: Restricted, Other (appears afrraid) Memory Intact: Immediate, Comment (unable to complete) Hallucinations: Auditory, Other (pierced to be responding to internal stimuli) Delusions: Yes Delusion Type: Paranoid (vague) Suicidal: Ideation Homicidal: Ideation (denies denies) Insight/Judgement Insight and judgment remain significantly impaired. Vitals/IOs Vital Signs Date Time Temp Pulse Resp B/P Pulse Ox O2 Delivery O2 Flow Rate FiO2 12/14/16 06:26 97.7 70 18 136/97 99 Assessment & Plan Problem List: (1) Schizoaffective disorder, depressive type ICD Code: F25.1 Assessment & Plan Estimated LOS:3-5 days patient requires more time on his antipsychotic and mood stabilizing medication. It is hoped over the weekend he begins to respond more appropriately and clear cognitively. Justification for Cont. Inpt. Remains confused, disoriented, psychotic and unable to care for self. Request HC Surrog/Guard Advoc?: No Andrew Elaine MD Dec 14, 2016 12:35
[2016-12-14 19:14] VITALS: BP 155/89; PULSE 89; RESP 18; TEMP 97.6; O2SAT 98
[2016-12-14] MEDS: REMOVE OLD NICOTINE PATCH T-DERMAL SCH (21:00)
[2016-12-14] MEDS: diphenhydrAMINE HCL 50 MG CAP - HS PRN PO (21:16)
[2016-12-14] MEDS: ARIPiprazole 2 MG TAB PO SCH (21:16)
[2016-12-15 06:13] VITALS: BP 136/86; PULSE 82; RESP 18; TEMP 97.3; O2SAT 99
[2016-12-15] MEDS: NIFEdipine 30 MG SUSTAINED RELEASE TAB PO SCH (09:00)
[2016-12-15] MEDS: BENZTROPINE MESYLATE 1 MG TAB PO SCH (09:00)
[2016-12-15] MEDS: ASPIRIN EC 81 MG TABEC PO SCH (09:00)
[2016-12-15] MEDS: NICOTINE 21 MG/24 HR PATCH T-DERMAL SCH (09:00)
[2016-12-15] MEDS: HALOPERIDOL 10 MG TAB PO SCH ×2 (09:00→20:18)
[2016-12-15] MEDS: METOPROLOL TARTRATE 50 MG TAB PO SCH ×2 (09:00→20:19)
[2016-12-15 18:18] VITALS: BP 125/68; PULSE 101; RESP 16; TEMP 98.3; O2SAT 98
--- NOTE | 2016-12-15 20:05 | HHI.PYPN ---
Subjective Remarks Pt seen and discussed with staff. P reports that his thoughts are more clear but he is feeling depressed. He reports decreased AH. He is guarded during interview but engages more as interview progresses. He reports that sleep is poor. He denies medication side effects. No SI/HI. Objective Alert: Yes [place]: Person, Place, Situation Mood: Calm Affect: Restricted, Other (appears afrraid) Memory Intact: Comment (fair) Hallucinations: Auditory Delusions: Yes Delusion Type: Paranoid Suicidal: Ideation Homicidal: Ideation (denies denies) Insight/Judgement poor Vitals/IOs Vital Signs Date Time Temp Pulse Resp B/P Pulse Ox O2 Delivery O2 Flow Rate FiO2 12/15/16 18:18 98.3 101 16 125/68 98 Assessment & Plan Problem List: (1) Schizoaffective disorder, depressive type ICD Code: F25.1 Assessment & Plan Titrate Abilify. Continue hospitalization.Estimated LOS: days Justification for Cont. Inpt. impairments in reality construction. Request HC Surrog/Guard Advoc?: Ashley Ayala MD Dec 15, 2016 20:05
[2016-12-15] MEDS: ARIPiprazole 2 MG TAB PO SCH (20:18)
[2016-12-15] MEDS: traZODone HCL 50 MG TAB PO PRN (20:19)
[2016-12-15] MEDS: REMOVE OLD NICOTINE PATCH T-DERMAL SCH (20:19)
[2016-12-15] MEDS: LORazepam 0.5 MG TAB age > 65 yrs PO PRN (23:48)
[2016-12-16 04:59] VITALS: BP 116/65; PULSE 65; RESP 18; TEMP 97.3; O2SAT 97
[2016-12-16] MEDS: NICOTINE 21 MG/24 HR PATCH T-DERMAL SCH (08:49)
[2016-12-16] MEDS: NIFEdipine 30 MG SUSTAINED RELEASE TAB PO SCH (08:50)
[2016-12-16] MEDS: ASPIRIN EC 81 MG TABEC PO SCH (08:50)
[2016-12-16] MEDS: METOPROLOL TARTRATE 50 MG TAB PO SCH ×2 (08:50→20:26)
[2016-12-16] MEDS: HALOPERIDOL 10 MG TAB PO SCH ×2 (08:50→20:26)
[2016-12-16] MEDS: BENZTROPINE MESYLATE 1 MG TAB PO SCH (08:50)
[2016-12-16 16:00] VITALS: BP 129/91; PULSE 80; RESP 18; TEMP 97.8; O2SAT 99
[2016-12-16 18:05] VITALS: BP 129/91; PULSE 80; RESP 18; TEMP 97.8; O2SAT 99
--- NOTE | 2016-12-16 18:29 | HHI.PYPN ---
Subjective Remarks Pt seen and discussed with staff. He has been isolative, spending most of day in his room. He is tolerating medications without side effects. He has been observed responding to internal stimuli and remains guarded and paranoid. Objective Alert: Yes [place]: Person, Place, Date, Situation Mood: Calm Affect: Restricted Memory Intact: Comment (fair) Hallucinations: Auditory Delusions: Yes Delusion Type: Paranoid Suicidal: Ideation Homicidal: Ideation (denies denies) Insight/Judgement poor Vitals/IOs Vital Signs Date Time Temp Pulse Resp B/P Pulse Ox O2 Delivery O2 Flow Rate FiO2 12/16/16 18:05 97.8 80 18 129/91 99 Assessment & Plan Problem List: (1) Schizoaffective disorder, depressive type ICD Code: F25.1 Assessment & Plan Continue current tx plan. Estimated LOS: days Justification for Cont. Inpt. impairments in reality construction and self care Request HC Surrog/Guard Advoc?: Ashley Ayala MD Dec 16, 2016 18:29
[2016-12-16] MEDS: traZODone HCL 50 MG TAB PO PRN (20:26)
[2016-12-16] MEDS: ARIPiprazole 2 MG TAB PO SCH (20:26)
[2016-12-16] MEDS: REMOVE OLD NICOTINE PATCH T-DERMAL SCH (21:00)
[2016-12-17 05:05] VITALS: BP 117/74; PULSE 64; RESP 16; TEMP 97.5; O2SAT 95
[2016-12-17 05:09] VITALS: BP 117/74; PULSE 64; RESP 16; TEMP 97.5; O2SAT 95
[2016-12-17] MEDS: NIFEdipine 30 MG SUSTAINED RELEASE TAB PO SCH (08:32)
[2016-12-17] MEDS: METOPROLOL TARTRATE 50 MG TAB PO SCH ×2 (08:33→20:59)
[2016-12-17] MEDS: HALOPERIDOL 10 MG TAB PO SCH ×2 (08:33→20:57)
[2016-12-17] MEDS: BENZTROPINE MESYLATE 1 MG TAB PO SCH (08:33)
[2016-12-17] MEDS: ASPIRIN EC 81 MG TABEC PO SCH (08:33)
[2016-12-17] MEDS: NICOTINE 21 MG/24 HR PATCH T-DERMAL SCH (08:34)
--- NOTE | 2016-12-17 14:15 | HHI.PYPN ---
Subjective Remarks Patient seen in his room with nurse Alondra, patient remains somewhat vigilant guarded and isolating. Is also quite hesitant about discharge plans. Though he does deny voices at this time in suicidality at this time. Patient compliant medications. for Now continue treatment Review of Systems Except as stated in HPI: all other systems reviewed are Neg Objective Alert: Yes [place]: Person, Place, Date, Situation Mood: Calm Affect: Restricted Memory Intact: Comment (fair) Hallucinations: Auditory Delusions: Yes Delusion Type: Paranoid Suicidal: Ideation Homicidal: Ideation (denies denies) Insight/Judgement Very poor Vitals/IOs Vital Signs Date Time Temp Pulse Resp B/P Pulse Ox O2 Delivery O2 Flow Rate FiO2 12/17/16 05:09 97.5 64 16 117/74 95 Assessment & Plan Problem List: (1) Schizoaffective disorder, depressive type ICD Code: F25.1 Assessment & Plan Estimated LOS: days patient remains somewhat paranoid and vigilant, compliant medications somewhat confused about readiness for discharge Justification for Cont. Inpt. This time patient would decompensate of placed in a lower level of care Discharge Planning To be determined Request HC Surrog/Guard Advoc?: No Justin Ivy MD Dec 17, 2016 14:15
[2016-12-17 19:44] VITALS: BP 102/82; PULSE 88; RESP 16; TEMP 97.8; O2SAT 100
[2016-12-17] MEDS: diphenhydrAMINE HCL 50 MG CAP - HS PRN PO (20:57)
[2016-12-17] MEDS: ARIPiprazole 2 MG TAB PO SCH (20:57)
[2016-12-17] MEDS: LORazepam 0.5 MG TAB age > 65 yrs PO PRN (20:57)
[2016-12-17] MEDS: REMOVE OLD NICOTINE PATCH T-DERMAL SCH (21:00)
[2016-12-18 05:55] VITALS: BP 141/88; PULSE 83; RESP 20; TEMP 97; O2SAT 99
[2016-12-18] MEDS: NICOTINE 21 MG/24 HR PATCH T-DERMAL SCH (09:00)
[2016-12-18] MEDS: BENZTROPINE MESYLATE 1 MG TAB PO SCH (09:05)
[2016-12-18] MEDS: NIFEdipine 30 MG SUSTAINED RELEASE TAB PO SCH (09:05)
[2016-12-18] MEDS: METOPROLOL TARTRATE 50 MG TAB PO SCH (09:06)
[2016-12-18] MEDS: HALOPERIDOL 10 MG TAB PO SCH (09:06)
[2016-12-18] MEDS: ASPIRIN EC 81 MG TABEC PO SCH (09:06)
--- NOTE | 2016-12-18 10:33 | HHI.DS ---
Psychiatry Discharge Summary Inpatient Psychiatric care?: Yes Advance Directive: No Reason Not Provided: Due to Patient Condition Mental Health AdvanceDirective: No Health Care Proxy: No Admission Admission Date Dec 09, 2016 at 00:24 Admission Diagnosis: (1) Schizoaffective disorder, bipolar type ICD Code: F25.0 Brief History This is 66-year-old white male with a known history of mental illness came to the emergency room for help because he has been talking to himself getting paranoid agitated restless for the past few months. He claimed that he was not feeling well and wanted some help he denied any suicidal ideation intentions or plan he denied any homicidal ideation intentions or plan. He has been going to [facility] but has been noncompliant in taking medication patient denied any alcohol or drug use and/or abuse. No behavior or management problem reported. He has been observed talking to himself and keeping to himself. Tobacco Use In Past 30 Days: No Tobacco Past 30 Days Alcohol Use: Never Hospital Course Patient was observed and evaluated for antipsychotic therapy. He was placed back on antipsychotic medication and stabilized to maximum benefit. He participated in individual and group therapies. At the time of discharge, while the patient continues to exhibit some mild disorganized thinking and speech, it was felt he had reached maximum benefit from this hospitalization. He was certainly pleasant and cooperative. He was not suicidal or homicidal. His neighbor was planning to take him to appointments and ensure follow up at [facility]. Results Blood Pressure 141 / 88 Vital Signs Date Time Temp Pulse Resp B/P Pulse Ox O2 Delivery O2 Flow Rate FiO2 12/18/16 05:55 97.0 83 20 141/88 99 None pending Summary of Procedures None Pending results at discharge: No Medications # of Antipsychotic meds at D/C: 1 Appropriate >1 Antipsych meds?: 1 Approp Antipsych med options 1 - Minimum of three failed multiple trials of monotherapy. 2 - Documented plan to taper to monotherapy due to previous use of multiple meds OR cross-taper in progress at D/C. 3 - Documentation of augmentation of Clozapine. 4 - Justification other than those listed in allowable values 1-3, document here : Discharge Discharge Date: Dec 18, 2016 Discharge Diagnosis: (1) Schizoaffective disorder, bipolar type ICD Code: F25.0 Mental Status Exam at Disch Patient was observed and evaluated and placed back on medication. At the time of discharge he demonstrated some mild loose association and his speech. Otherwise he was not suicidal or homicidal. He was calm and pleasant and cooperative. It was felt he had reached baseline from a cognitive and psychiatric standpoint. Pt Condition on Discharge: Stable Discharge Disposition: Discharge Home Discharge Instructions Diet Instructions: As Tolerated, No Restrictions Activities you can perform: Regular-No Restrictions Scheduled Appointment: Mark Steel Emily Appointment Date: Dec 25, 2016 Appointment Time: 7:30am Discharge Time <= 30 minutes Discharge/Advance Care Plan Health Problems: (1) Schizoaffective disorder, depressive type Goals to promote your health * To prevent worsening of your condition and complications * To maintain your health at the optimal level Directions to meet your goals Take your medications as prescribed Follow your dietary instruction Follow activity as directed Keep your appointments as scheduled Take your immunizations and boosters as scheduled If your symptoms worsen call your PCP, if no PCP go to Urgent Care Center or Emergency Room For 22/04 questions related to your inpatient stay or results of tests pending at discharge, please contact Dr. Andrew Elaine at Smoking is Dangerous to Your Health. Avoid second hand smoking Andrew Elaine MD Dec 18, 2016 10:33
[2016-12-18] MEDS ORDERED: ASPI1TAB69 PO (10:38)
[2016-12-18] MEDS ORDERED: TRAZ50TA12 PO (10:38)
[2016-12-18] MEDS ORDERED: METO-309 PO (10:38)
[2016-12-18] MEDS ORDERED: ABIL2TAB2 PO (10:38)
[2016-12-18] MEDS ORDERED: NIFE30TA8 PO (10:38)
== END 2016-12-18 14:45 | disposition home or self-care (01) | DRG 885 ==
LOC: NEPC 04:47 → NEDA 12-09 00:24 → H260 12-09 00:55
PROVIDERS: ADMIT Psychiatry & Neurology Psychiatry; ATTEND Psychiatry & Neurology Psychiatry
DX: F25.0 Schizoaffective disorder, bipolar type (principal); I48.91 Unspecified atrial fibrillation; J44.9 Chronic obstructive pulmonary disease, unspecified; Z91.19 Patient's noncompliance with other medical treatment and regimen; I12.9 Hypertensive chronic kidney disease with stage 1 through stage 4 chronic kidney disease, or unspecified chronic kidney disease; N18.9 Chronic kidney disease, unspecified; Z72.0 Tobacco use; F32.9 Major depressive disorder, single episode, unspecified; F41.9 Anxiety disorder, unspecified
CPT/HCPCS: 80048; 80053; 80061; 80307; 83036; 85025; 93005; 99285; Q0163

== ENCOUNTER 2016-12-27 13:55 | Inpatient (IN) | payer OTHER, MEDICARE ==
[~2016-12-27] VITALS: Ht 177.8 cm; Wt 86.6 kg
[~2016-12-27 13:55] MED LIST changes: +ABIL2TAB2 PO; +ASPI1TAB69 PO; -ASPI325T PO; -BENZ1 PO; +BENZ1TAB PO; -CLON.1 PO; +CLON0.1T PO; -FURO1TAB93 PO; -HALO10 PO; +HALO10TA PO; +METO-309 PO; -METO100 PO; -METO25 PO; +METO50TA PO; -NIFE1TAB85 PO; +NIFE30TA8 PO; -QUET200 PO; +TRAZ50TA12 PO
--- NOTE | 2016-12-27 14:15 | PD ---
HPI Chief Complaint: BA Time Seen by Provider: 14:15 Travel History International Travel<30 days: No Contact w/Intl Traveler<30days: No Traveled to known affect area: No History of Present Illness HPI 66-year-old male with history of schizoaffective disorder presents to the emergency department under a [place] act for psychiatric evaluation. When patient is asked why he is here he states "where do I start." Patient states he has not been taking medications prescribed to him. States he does not know why. Patient denies alcohol consumption, tobacco cigarette smoking, or illicit drug use. Denies suicidal homicidal ideations. Is otherwise a very poor historian. Per the [place] act, patient was living in subpar conditions. He was wearing speech as though he was intoxicated. He had reported not taking his medications. They felt that he was a risk to himself and brought him into the emergency department. PFSH Past Medical History Asthma: No Atrial Fibrillation: Yes Blood Disorders: No Anxiety: Yes Depression: Yes Heart Rhythm Problems: Yes Cardiovascular Problems: Yes (AFIB) Chemotherapy: No Chest Pain: No Congestive Heart Failure: No COPD: Yes Cerebrovascular Accident: No Diminished Hearing: No Glaucoma: No Hypertension: Yes Psychiatric: Yes (Schizoaffective Disorder) Myocardial Infarction: No Radiation Therapy: No Schizophrenia: Yes Sickle Cell Disease: No Sleep Apnea: No Past Surgical History AICD: No Ear Surgery: No Eye Surgery: Yes (right) Genitourinary Surgery: No Gynecologic Surgery: No Joint Replacement: No Oral Surgery: No Social History Alcohol Use: No Tobacco Use: Yes (3-4PPD) Substance Use: No Allergies-Medications (Allergen,Severity, Reaction): Coded Allergies: No Known Allergies (Verified , 12/27/16) Per pt. Reported Meds & Prescriptions Reported Meds & Active Scripts Active Abilify (Aripiprazole) 2 Mg Tab 10 Mg PO BID Trazodone (Trazodone HCl) 50 Mg Tab 50 Mg PO HS PRN Nifedipine ER 24 HR (Nifedipine) 30 Mg Tab 30 Mg PO DAILY Aspirin 81 Mg Tabdr 81 Mg PO DAILY Reported Clonidine (Clonidine HCl) 0.1 Mg Tab 0.1 Mg PO Q8 Benztropine (Benztropine Mesylate) 1 Mg Tab 1 Mg PO DAILY Haloperidol 10 Mg Tab 10 Mg PO BID Metoprolol Tartrate 50 Mg Tab 50 Mg PO BID Review of Systems Except as stated in HPI: all other systems reviewed are Neg Physical Exam Narrative GENERAL: Well-nourished male patient unkempt but in no acute distress. SKIN: Warm, dry. HEAD: Atraumatic. Normocephalic. EYES: Pupils equal and round. No scleral icterus. No injection or drainage. ENT: No nasal bleeding or discharge. Mucous membranes pink and moist. NECK: Trachea midline. No JVD. CARDIOVASCULAR: Elevated rate and rhythm. No murmur appreciated. RESPIRATORY: No accessory muscle use. Clear to auscultation. Breath sounds equal bilaterally. GASTROINTESTINAL: Abdomen soft, non-tender, nondistended. Hepatic and splenic margins not palpable. MUSCULOSKELETAL: No obvious deformities. No clubbing. No cyanosis. No edema. NEUROLOGICAL: Awake and alert. No obvious cranial nerve deficits. Motor grossly within normal limits. Data Data Last Documented VS Vital Signs Date Time Temp Pulse Resp B/P Pulse Ox O2 Delivery O2 Flow Rate FiO2 12/27/16 20:19 105 19 155/110 100 Room Air 12/27/16 19:14 98.1 Orders Complete Blood Count With Diff (12/27/16 14:01) Basic Metabolic Panel (Bmp) (12/27/16 14:01) Urinalysis - C+S If Indicated (12/27/16 14:01) Psych Screen (12/27/16 14:01) Drug Screen, Random Urine (12/27/16 14:01) Alcohol (Ethanol) (12/27/16 14:01) Diet Regular Basic (12/27/16 Dinner) Metoprolol Tartrate (Lopressor) (12/27/16 20:45) Trazodone (Desyrel) (12/27/16 20:45) Haloperidol (Haldol) (12/27/16 20:45) Labs Laboratory Tests Test 12/27/16 12/27/16 14:13 15:48 White Blood Count 8.2 TH/MM3 Red Blood Count 5.33 MIL/MM3 Hemoglobin 15.5 GM/DL Hematocrit 45.7 % Mean Corpuscular Volume 85.7 FL Mean Corpuscular Hemoglobin 29.0 PG Mean Corpuscular Hemoglobin 33.8 % Concent Red Cell Distribution Width 14.5 % Platelet Count 169 TH/MM3 Mean Platelet Volume 10.6 FL Neutrophils (%) (Auto) 70.0 % Lymphocytes (%) (Auto) 17.9 % Monocytes (%) (Auto) 7.7 % Eosinophils (%) (Auto) 1.9 % Basophils (%) (Auto) 2.5 % Neutrophils # (Auto) 5.7 TH/MM3 Lymphocytes # (Auto) 1.5 TH/MM3 Monocytes # (Auto) 0.6 TH/MM3 Eosinophils # (Auto) 0.2 TH/MM3 Basophils # (Auto) 0.2 TH/MM3 CBC Comment DIFF FINAL Differential Comment Sodium Level 143 MEQ/L Potassium Level 3.7 MEQ/L Chloride Level 111 MEQ/L Carbon Dioxide Level 20.9 MEQ/L Anion Gap 11 MEQ/L Blood Urea Nitrogen 15 MG/DL Creatinine 1.35 MG/DL Estimat Glomerular Filtration 53 ML/MIN Rate Random Glucose 116 MG/DL Calcium Level 9.6 MG/DL Ethyl Alcohol Level 3 MG/DL Urine Color YELLOW Urine Turbidity CLEAR Urine pH 5.5 Urine Specific [place] 1.021 Urine Protein TRACE mg/dL Urine Glucose (UA) NEG mg/dL Urine Ketones TRACE mg/dL Urine Occult Blood NEG Urine Nitrite NEG Urine Bilirubin NEG Urine Urobilinogen 4.0 MG/DL Urine Leukocyte Esterase NEG Urine RBC 6 /hpf Urine WBC 3 /hpf Urine Squamous Epithelial 1 /hpf Cells Urine Hyaline Casts 5 /lpf Urine Mucus FEW /lpf Microscopic Urinalysis Comment CULT NOT INDICATED Urine Opiates Screen NEG Urine Barbiturates Screen NEG Urine Amphetamines Screen NEG Urine Benzodiazepines Screen NEG Urine Cocaine Screen NEG Urine Cannabinoids Screen NEG MDM Medical Decision Making Medical Screen Exam Complete: Yes Emergency Medical Condition: Yes Medical Record Reviewed: Yes Differential Diagnosis Mood disorder versus personality disorder versus adjustment reaction disorder versus acute psychosis versus substance abuse Narrative Course 66-year-old male presents to the emergency department under Duke act for psychiatric evaluation. Patient appears without distress. Denies suicidal or homicidal ideations. Lab work is without acute concern. Toxicology is negative. EtOH is 3. Patient is medically cleared and a psychiatric screen for further evaluation and disposition. Mental health screening discussed with the patient. Psychiatric screen ordered. Diagnosis Primary Impression: Schizoaffective disorder, depressive type Condition: Stable Windy Marion ANDRÉS Dec 27, 2016 14:15
[2016-12-27 14:18] VITALS: BP 146/106; PULSE 97; RESP 18; O2SAT 97
[2016-12-27 14:55] LABS: AUTOMATED NEUTROPHIL # 5.7 TH/MM3 (1.8-7.7); BASOPHIL # 0.2 TH/MM3 (0-0.2); BASOPHIL % 2.5 % (0.0-2.0); EOSINOPHIL # 0.2 TH/MM3 (0-0.4); EOSINOPHIL % 1.9 % (0.0-4.0); HEMATOCRIT 45.7 % (39.0-51.0); HEMO FLAGS DIFF FINAL; LYMPH % 17.9 % (9.0-44.0); LYMPHOCYTE # 1.5 TH/MM3 (1.0-4.8); MEAN CELL VOLUME 85.7 FL (80.0-100.0); MEAN CORPUSCULAR HGB CONC 33.8 % (32.0-36.0); MONO % 7.7 % (0.0-8.0); PLATELET COUNT 169 TH/MM3 (150-450); RED BLOOD COUNT 5.33 MIL/MM3 (4.50-5.90); RED CELL DISTRIBUTION WIDTH 14.5 % (11.6-17.2); WHITE BLOOD COUNT 8.2 TH/MM3 (4.0-11.0)
[2016-12-27 15:12] LABS: BICARBONATE 20.9 MEQ/L (21.0-32.0); POTASSIUM 3.7 MEQ/L (3.5-5.1)
[2016-12-27 16:07] LABS: BLOOD, URINE NEG (NEG); COMMENT (UR) CULT NOT INDICATED; CULTURE IF INDICATED CULT NOT INDICATED; GLUCOSE,URINE NEG (NEG); HYALINE CAST, URINE 5 /lpf (RARE); KETONE, URINE TRACE mg/dL (NEG); MUCUS URINE FEW /lpf (OCC); NITRITE,URINE NEG (NEG); PH, URINE 5.5 (5.0-8.5); SQUAMOUS EPITHELIAL CELL URINE 1 /hpf (0-5); URINE COLOR YELLOW (YELLW/STRAW)
[2016-12-27 17:08] LABS: AMPHETAMINE, URINE NEG (NEG); BARBITURATES, URINE NEG (NEG); COCAINE, URINE NEG (NEG)
[2016-12-27 19:14] VITALS: BP 162/86; PULSE 92; RESP 18; TEMP 98.1; O2SAT 98
[2016-12-27 20:19] VITALS: BP 155/110; PULSE 105; RESP 19; O2SAT 100
[2016-12-27] MEDS ORDERED: HALOPERIDOL 10 MG TAB PO ONE (20:45)
[2016-12-27] MEDS ORDERED: traZODone HCL 50 MG TAB PO ONE (20:45)
[2016-12-27] MEDS ORDERED: METOPROLOL TARTRATE 50 MG TAB PO ONE (20:45)
[2016-12-27 22:10] VITALS: BP 167/95; PULSE 83; RESP 18; O2SAT 96
[2016-12-27 23:45] VITALS: BP 167/105; PULSE 82; RESP 18; TEMP 98; O2SAT 99
[2016-12-28] MEDS ORDERED: MAGNESIUM HYDROXIDE SUSP 30 ML CUP PO PRN ×2 (00:15→09:30)
[2016-12-28] MEDS ORDERED: ALUMINUM/MAGNESIUM/SIMETH 30 ML CUP PO PRN ×2 (00:15→09:30)
[2016-12-28] MEDS ORDERED: LORazepam 2 MG/ML VIAL IM PRN (00:15)
[2016-12-28] MEDS ORDERED: ACETAMINOPHEN 325 MG TAB PO PRN ×2 (00:15→09:30)
[2016-12-28] MEDS: LORazepam 1 MG TAB PO PRN (01:38)
[2016-12-28 06:42] VITALS: BP 178/107; PULSE 74; RESP 16; TEMP 97; O2SAT 96
[2016-12-28] MEDS ORDERED: NICOTINE 21 MG/24 HR PATCH T-DERMAL SCH (09:00)
[2016-12-28] MEDS: METOPROLOL TARTRATE 50 MG TAB PO SCH ×2 (09:17→20:12)
[2016-12-28] MEDS: HALOPERIDOL 10 MG TAB PO SCH ×2 (09:17→20:12)
[2016-12-28] MEDS: ARIPiprazole 10 MG TAB PO SCH ×2 (09:17→20:11)
[2016-12-28] MEDS: ASPIRIN 81 MG CHEW TAB PO SCH (09:18)
[2016-12-28] MEDS: NIFEdipine 30 MG SUSTAINED RELEASE TAB PO SCH (09:18)
[2016-12-28] MEDS: BENZTROPINE MESYLATE 1 MG TAB PO SCH (09:18)
--- NOTE | 2016-12-28 09:51 | HHI.HP ---
Provisional Diagnosis Admission Date Dec 27, 2016 at 23:11 [place] I. Schizoaffective disorder bipolar type f 20.0 Certification of Person's Competence To Provide Express and Informed Consent I have personally examined Luis Daniel Desir , a person being served at [facility] on, Dec 28, 2016 09:33. Express and informed consent means consent voluntarily given in writing, by a competent person, after sufficient explanation and disclosure of the subject matter involved to enable the person to make a knowing and willful decision without any element of force, fraud, deceit, duress, or other form of constraint or coercion. This person is 18 years of age or older, is not now known to be incompetent to consent to treatment with a guardian advocate, and does not have a health care surrogate or proxy currently making medical treatment decisions. I have found this person to be one of the following: [] Competent to provide express and informed consent, as defined above, for voluntary admission to this facility and is competent to provide express and informed consent for treatment. He/she has the consistent capacity to make well reasoned, willful, and knowing decisions concerning his or her medical or mental health treatment. The person fully and consistently understands the purpose of the admission for examination/placement and is fully capable of personally exercising all rights assured [place] [] Incompetent to provide express and informed consent to voluntary admission, and this is incompetent to provide express and informed consent to treatment. The person must be transferred to involuntary status and a petition for a guardian advocate filed with the Circuit Court. X[] Refusing to provide express and informed consent to voluntary admission but is competent to provide express and informed consent for treatment. The person must be discharged or transferred to involuntary status. Form shall be completed within 24 hours of a person's arrival at the receiving facility and filed in the clinical record of each person: 1. Admitted on a voluntary basis 2. Permitted to provide express and informed consent to his/her own treatment 3. Allowed to transfer from involuntary to voluntary status 4. Prior to permitting a person to consent to his or her own treatment after having been previously found incompetent to consent to treatment. History of Present Illness Capacity: Lacks Capacity (lacks capacity to agreed to admission, has capacity to sign for medications) HPI Patient is a 66-year-old white male well-known from past multiple prior admissions comes here under [facility] act signed by the [facility]'s office dated 12/27/16 at 1319 hrs. Duke act reviewed stating that the patient appeared nervous and swaying on his feet when initially seen by the law enforcement officers. They felt he appeared intoxicated he denied drinking. He was noted to be fidgety and restless and uneasy. The police office noted numerous bottles of medication none of which appears for been consumed. There were Also signs of neglect with his appearance and his trailer though some molding food was noted in his trailer and also some fresher food though was found on the table with no plates or other dishes. Patient seen screened in the ED urine toxicology negative blood alcohol level negative. Of interest patient was hospitalized here 12/09/16 through 12/18/[address] Elaine visit number [phone]. It appears patient has not been compliant with medication or follow-up since the discharge. He states he sees Dr. Mahan at [facility] outpatient. He does deny alcohol or drug use. He denies voices but there is significant consistent thought blocking noted with response to essentially every question asked. He is vague about suicidality. He does acknowledge his inability to care for himself feed himself or keep proper hygiene. He states he did have a roommate who was asked to leave the [facility] about a week or 2 ago by the [facility] management. Patient appears to have no other significant support group in town. He denies any history of physical or sexual abuse. Denies any significant mental health history in the family. It appears she is having some insight into the fact that up [facility] placement might be the best solution for him at this time. Of interest the patient had very poor eye contact and while sitting on the edge of his bed and was noticed that he continually was rocking back and forth his hands moving and his feet bouncing up and down on his toes At this time patient does meet criteria for involuntary psychiatric hospitalization. I will do first opinion requests a second opinion. They feel he has capacity to work with us with his medication. We'll continue his medication per the med reconciliation. With the hospitalist assess him also. We'll work with counselor's to determine an appropriate placement perhaps local family usp or [facility] Review of Systems ROS Limitations: Altered Mental Status Constitutional: DENIES: Diaphoretic episodes, Fatigue, Fever, Weight gain, Weight loss, Chills, Dizziness, Change in appetite, Night Sweats Endocrine: DENIES: Heat/cold intolerance, Polydipsia, Polyuria, Polyphagia Eyes: DENIES: Blurred vision, Diplopia, Eye inflammation, Eye pain, Vision loss , Photosensitivity, Double Vision Ears, nose, mouth, throat: DENIES: Tinnitus, Hearing loss, Vertigo, Nasal discharge, Oral lesions, Throat pain, Hoarseness, Ear Pain, Running Nose, Epistaxis, Sinus Pain, Toothache, Odynophagia Respiratory: DENIES: Apneas, Cough, Snoring, Wheezing, Hemoptysis, Sputum production, Shortness of breath Cardiovascular: DENIES: Chest pain, Palpitations, Syncope, Dyspnea on Exertion , PND, Lower Extremity Edema, Orthopnea, Claudication Gastrointestinal: DENIES: Abdominal pain, Black stools, Bloody stools, Constipation, Diarrhea, Nausea, Vomiting, Difficulty Swallowing, Anorexia Genitourinary: DENIES: Sexual dysfunction, Urinary frequency, Urinary incontinence, Urgency, Hematuria, Dysuria, Nocturia, Penile Discharge, Testicular Pain, Testicular Swelling Musculoskeletal: DENIES: Joint pain, Muscle aches, Stiffness, Joint Swelling, Back pain, Neck pain Integumentary: DENIES: Abnormal pigmentation, Nail changes, Pruritus, Rash Hematologic/lymphatic: DENIES: Bruising, Lymphadenopathy Immunologic/allergic: DENIES: Eczema, Urticaria Neurologic: DENIES: Abnormal gait, Headache, Localized weakness, Paresthesias, Seizures, Speech Problems, Tremor, Poor Balance Psychiatric: COMPLAINS OF: Anxiety, Depression, Hallucinations, Suicidal Ideation (vague thought blocking vague) Past Psych History Psychological trauma history Denies physical or sexual abuse Violence risk - others (6 mos) Low Violence risk - self (6 mos) Low except perhaps by self-neglect Substance Abuse History Drugs/Alcohol past 12 months Denies Past Family Social History Coded Allergies: No Known Allergies (Verified , 12/27/16) Per pt. Past Medical History Please see MedSur assessment Active Scripts Aripiprazole (Abilify)2 Mg Tab10 Mg PO BID #60 TAB Prov:Andrew Elaine MD 12/18/16 Trazodone 50 Mg Tab50 Mg PO HS PRN (INSOMNIA) #30 TAB Prov:Andrew Elaine MD 12/18/16 Nifedipine ER 24 HR 30 Mg Tab30 Mg PO DAILY #30 TAB Prov:Andrew Elaine MD 12/18/16 Aspirin 81 Mg Tabdr81 Mg PO DAILY #30 TAB Prov:Andrew Elaine MD 12/18/16 Reported Medications Clonidine 0.1 Mg Tab0.1 Mg PO q8 #60 TAB Ref 0 12/08/16 Benztropine 1 Mg Tab1 Mg PO DAILY #30 TAB Ref 0 12/08/16 Haloperidol 10 Mg Tab10 Mg PO BID Ref 0 12/08/16 Metoprolol Tartrate 50 Mg Tab50 Mg PO BID #60 TAB Ref 0 12/08/16 Current Medications Medications (Trade) Dose Ordered Sig/Mesha Route Start Time Stop Time Status Last Admin (Ativan) 1 mg Q6H PRN PO 12/28/16 00:15 12/28/16 01:38 (Ativan Inj) 1 mg Q6H PRN IM 12/28/16 00:15 (Tylenol) 650 mg Q4H PRN PO 12/28/16 00:15 (Milk Of Magnesia Liq) 30 ml DAILY PRN PO 12/28/16 00:15 (Mag-Al Plus Susp Liq) 30 ml Q6H PRN PO 12/28/16 00:15 (Habitrol 21 Mg Patch.24 Hr) 1 patch DAILY T-DERMAL 12/28/16 09:00 Miscellaneous Information 1 HS T-DERMAL 12/28/16 21:00 (Aspirin Chew) 81 mg DAILY PO 12/28/16 09:00 12/28/16 09:18 (Procardia Xl) 30 mg DAILY PO 12/28/16 09:00 12/28/16 09:18 (Desyrel) 50 mg HS PRN PO 12/28/16 00:15 (Lopressor) 50 mg BID PO 12/28/16 09:00 12/28/16 09:17 (Haldol) 10 mg BID PO 12/28/16 09:00 12/28/16 09:17 (Cogentin) 1 mg DAILY PO 12/28/16 09:00 12/28/16 09:18 (Abilify) 10 mg BID PO 12/28/16 09:00 12/28/16 09:17 (Tylenol) 650 mg Q4H PRN PO 12/28/16 09:30 UNV (Milk Of Magnesia Liq) 30 ml DAILY PRN PO 12/28/16 09:30 UNV (Mag-Al Plus Susp Liq) 30 ml Q6H PRN PO 12/28/16 09:30 UNV (Habitrol 21 Mg Patch.24 Hr) 1 patch DAILY T-DERMAL 12/29/16 09:00 UNV Family History Patient denies mental health for addictions and family Social History Patient has previous marriages but no children Patient's Strengths (min. 2) Patient verbal able exercise health care, is cooperative Physical Exam Patient seen and screened in ED exam reviewed and agreed with vital signs blood pressure 178/107 pulse 74 respirations 16 Vital Signs Vital Signs Date Time Temp Pulse Resp B/P Pulse Ox O2 Delivery O2 Flow Rate FiO2 12/28/16 06:42 97.0 74 16 178/107 96 12/27/16 22:10 Room Air Mental Status Examination Alert overall oriented white male somewhat disheveled in appearance soon as somewhat anxious state in his room sitting on his bed, stereotypic movements rocking back and forth and continually bounced is legs up and down. Poor eye contact. Patient seen in his room with nurse Dmitriy and counselor Kailey Appearance Somewhat disheveled Speech: Hesitant, Slow, Other (marked thought blocking) Orientation: Person, Place, Time, Situation Memory: Impaired (describe) Thought Process: Linear Thought Content: Depersonal Hallucination Type: Auditory (patient denies that there is significant thought blocking and delayed responses) Attention and Concentration: Other (poor) Suicidal Ideation: No (denies) Previous Suicide Attempts: No Homicidal Ideation: No Previous Homicide Attempts: No Insight: Poor Judgement: Poor Affect: Other (decreased range and intensity) Mood: Sad, Other (restricted) Motor Activity: Normal gait Assessment & Plan Problem List: (1) Schizoaffective disorder, bipolar type ICD Code: F25.0 Assessment & Plan Estimated LOS 5-7: days patient does meet criteria for involuntary psychiatric hospitalization I will do first opinion request second opinion. They feel he does have capacity to participate in the medication management. We will the hospitalist consult was also. Will have counselor talked with patient about possible placement issues related to [facility] her family usp Discharge Planning To be determined Request HC Surrog/Guard Advoc?: No Justin Ivy MD Dec 28, 2016 09:51
--- NOTE | 2016-12-28 14:28 | PD.CONS ---
[facility] Consult Requested By Dr. Ivy Reason for Consult HTN, medical management Primary Care Physician [facility] Diagnoses: History of Present Illness 65-year-old male with a medical history significant for schizophrenia, anxiety, depression, hypertension and atrial fibrillation admitted to the psychiatric unit under Duke act. The patient reportedly was found in very poor living conditions. He stopped taking all of his medications including his antipsychotics. He reports to me he does not know why he stopped taking his medications. He has a very flat affect and difficult to get him to elaborate. Poor historian. He denies any shortness of breath or chest pain. He did state that he is hoping to be able to be discharged to a [facility] when he is ready. Otherwise the patient has no complaints. He denies heart palpitations. Review of Systems Except as stated in HPI: all other systems reviewed are Neg Past Family Social History Allergies: Coded Allergies: No Known Allergies (Verified , 12/27/16) Per pt. Past Medical History Schizophrenia Anxiety Depression Hypertension Atrial fibrillation Past Surgical History Eye surgery Reported Medications Reported Meds & Active Scripts Active Abilify (Aripiprazole) 2 Mg Tab 10 Mg PO BID Trazodone (Trazodone HCl) 50 Mg Tab 50 Mg PO HS PRN Nifedipine ER 24 HR (Nifedipine) 30 Mg Tab 30 Mg PO DAILY Aspirin 81 Mg Tabdr 81 Mg PO DAILY Reported Clonidine (Clonidine HCl) 0.1 Mg Tab 0.1 Mg PO Q8 Benztropine (Benztropine Mesylate) 1 Mg Tab 1 Mg PO DAILY Haloperidol 10 Mg Tab 10 Mg PO BID Metoprolol Tartrate 50 Mg Tab 50 Mg PO BID Family History Father has a history of heart attacks. Social History Patient denies using tobacco, alcohol, or illicit drugs. Physical Exam Vital Signs Vital Signs Date Time Temp Pulse Resp B/P Pulse Ox O2 Delivery O2 Flow Rate FiO2 12/28/16 06:42 97.0 74 16 178/107 96 12/27/16 23:45 98.0 82 18 167/105 99 12/27/16 22:10 83 18 167/95 96 Room Air 12/27/16 20:19 105 19 155/110 100 Room Air 12/27/16 19:14 98.1 92 18 162/86 98 Room Air 12/27/16 14:23 98 20 Physical Exam GENERAL: Elderly male in no apparent distress. SKIN: No rashes, ecchymoses or lesions. Cool and dry. HEAD: Atraumatic. Normocephalic. No temporal or scalp tenderness. EYES: Pupils equal round and reactive. Extraocular motions intact. No scleral icterus. No injection or drainage. ENT: Nose without bleeding, purulent drainage or septal hematoma. Throat without erythema, tonsillar hypertrophy or exudate. Uvula midline. Airway patent. NECK: Trachea midline. No JVD or lymphadenopathy. Supple, nontender, no meningeal signs. CARDIOVASCULAR: Regular rate and rhythm without murmurs, gallops, or rubs. RESPIRATORY: Clear to auscultation. Breath sounds equal bilaterally. No wheezes , rales, or rhonchi. GASTROINTESTINAL: Abdomen soft, non-tender, nondistended. No hepato-splenomegaly , or palpable masses. No guarding. MUSCULOSKELETAL: Extremities without clubbing, cyanosis, or edema. No joint tenderness, effusion, or edema noted. No calf tenderness. Negative Homans sign bilaterally. NEUROLOGICAL: Awake and alert. Cranial nerves II through XII intact. Motor and sensory grossly within normal limits. Five out of 5 muscle strength in all muscle groups. Speech is somewhat slowed but otherwise normal Laboratory Laboratory Tests Test 12/27/16 15:48 Urine Color YELLOW Urine Turbidity CLEAR Urine pH 5.5 Urine Specific [place] 1.021 Urine Protein TRACE Urine Glucose (UA) NEG Urine Ketones TRACE Urine Occult Blood NEG Urine Nitrite NEG Urine Bilirubin NEG Urine Urobilinogen 4.0 Urine Leukocyte Esterase NEG Urine RBC 6 Urine WBC 3 Urine Squamous Epithelial 1 Cells Urine Hyaline Casts 5 Urine Mucus FEW Microscopic Urinalysis Comment CULT NOT INDICATED Urine Opiates Screen NEG Urine Barbiturates Screen NEG Urine Amphetamines Screen NEG Urine Benzodiazepines Screen NEG Urine Cocaine Screen NEG Urine Cannabinoids Screen NEG Result Diagram: 12/27/16 1413 12/27/16 1413 Assessment and Plan Assessment and Plan 66-year-old male admitted to the psychiatric unit under Duke act for schizoaffective disorder. Hospitalist service following for medical management. Schizoaffective disorder- management per psychiatric team Hypertension: -Resume home medications including metoprolol 50 mg twice a day, nifedipine extended release 30 mg daily. Clonidine 0.1 mg 3 times a day when necessary. Atrial fibrillation- rate controlled continue aspirin daily metoprolol 50 mg daily CKD-baseline creatinine appeared to fluctuated between 1.2-1.3. Creatinine 1.35 on admission avoid nephrotoxic agents encourage PO fluid intake Thank you for allowing me to participate in the care of Mr. Desir. We'll continue to follow Kate Hayward MD Dec 28, 2016 14:28
[2016-12-28 17:22] VITALS: BP 188/94; PULSE 94
[2016-12-28] MEDS: cloNIDine HCL 0.1 MG TAB PO PRN (17:24)
[2016-12-28 19:23] VITALS: BP 188/94; PULSE 81; RESP 17; TEMP 97.6; O2SAT 98
[2016-12-28] MEDS ORDERED: REMOVE OLD NICOTINE PATCH T-DERMAL SCH (21:00)
[2016-12-28 22:30] VITALS: BP 117/85
[2016-12-29 06:24] VITALS: BP 149/85; PULSE 90; RESP 18; TEMP 97.4; O2SAT 100
[2016-12-29 06:59] LABS: AUTOMATED NEUTROPHIL # 2.9 TH/MM3 (1.8-7.7); BASOPHIL # 0.1 TH/MM3 (0-0.2); BASOPHIL % 2.4 % (0.0-2.0); EOSINOPHIL # 0.3 TH/MM3 (0-0.4); EOSINOPHIL % 5.2 % (0.0-4.0); HEMO FLAGS DIFF FINAL; LYMPHOCYTE # 1.7 TH/MM3 (1.0-4.8); MEAN CELL VOLUME 86.6 FL (80.0-100.0); MEAN CORPUSCULAR HEMOGLOBIN 29.2 PG (27.0-34.0); MEAN CORPUSCULAR HGB CONC 33.7 % (32.0-36.0); MONO % 8.3 % (0.0-8.0); NEUT % 53.1 % (16.0-70.0); PLATELET COUNT 139 TH/MM3 (150-450); RED CELL DISTRIBUTION WIDTH 14.9 % (11.6-17.2); WHITE BLOOD COUNT 5.4 TH/MM3 (4.0-11.0)
[2016-12-29 07:27] LABS: ALT (GPT) 18 U/L (12-78); ANION GAP 7 MEQ/L (5-15); BICARBONATE 25.7 MEQ/L (21.0-32.0); BLOOD UREA NITROGEN 13 MG/DL (7-18); CHLORIDE 111 MEQ/L (98-107); SODIUM (NA) 144 MEQ/L (136-145)
[2016-12-29 07:37] LABS: ALKALINE PHOSPHATASE 59 U/L (45-117); AST (GOT) 13 U/L (15-37); FREE T4 1.21 NG/DL (0.76-1.46); GLOMERULAR FILTRATION RATE 69 ML/MIN (>89); TOTAL BILIRUBIN ADULT 0.6 MG/DL (0.2-1.0)
[2016-12-29] MEDS ORDERED: NICOTINE 21 MG/24 HR PATCH T-DERMAL SCH (09:00)
[2016-12-29] MEDS: HALOPERIDOL 10 MG TAB PO SCH ×2 (09:06→21:14)
[2016-12-29] MEDS: NIFEdipine 30 MG SUSTAINED RELEASE TAB PO SCH (09:06)
[2016-12-29] MEDS: ARIPiprazole 10 MG TAB PO SCH ×2 (09:07→21:14)
[2016-12-29] MEDS: ASPIRIN 81 MG CHEW TAB PO SCH (09:07)
[2016-12-29] MEDS: BENZTROPINE MESYLATE 1 MG TAB PO SCH (09:07)
[2016-12-29] MEDS: METOPROLOL TARTRATE 50 MG TAB PO SCH ×2 (09:07→21:14)
--- NOTE | 2016-12-29 19:08 | PD.CONS ---
Provisional Diagnosis Admission Date Dec 27, 2016 at 23:11 [place]. Schizoaffective disorder bipolar type f 20.0 History of Present Illness Service Psychiatry Consult Requested By Psychiatry Reason for Consult 2nd opinion Primary Care Physician [facility] HPI Pt was seen and discussed with staff. Chart reviewed. Pt is a 66YOWM with schizoaffective d/o admitted under a BA who is well known to psychiatry service due to multiple admissions over the years. He was recently [place] on [place] [facility] [place] He reports that he did not take medications of f/u with [facility] after discharge. He was BA by LENIN who noted self neglect and bizarre behavior. He has been disorganized in TP and behaviors on unit. Self care is poor. He denies SI/HI. Past Family Social History Coded Allergies: No Known Allergies (Verified , 12/27/16) Per pt. Active Scripts Aripiprazole (Abilify)2 Mg Tab10 Mg PO BID #60 TAB Prov:Andrew Elaine MD 12/18/16 Trazodone 50 Mg Tab50 Mg PO HS PRN (INSOMNIA) #30 TAB Prov:Andrew Elaine MD 12/18/16 Nifedipine ER 24 HR 30 Mg Tab30 Mg PO DAILY #30 TAB Prov:Andrew Elaine MD 12/18/16 Aspirin 81 Mg Tabdr81 Mg PO DAILY #30 TAB Prov:Andrew Elaine MD 12/18/16 Reported Medications Clonidine 0.1 Mg Tab0.1 Mg PO q8 #60 TAB Ref 0 12/08/16 Benztropine 1 Mg Tab1 Mg PO DAILY #30 TAB Ref 0 12/08/16 Haloperidol 10 Mg Tab10 Mg PO BID Ref 0 12/08/16 Metoprolol Tartrate 50 Mg Tab50 Mg PO BID #60 TAB Ref 0 12/08/16 Current Medications Medications (Trade) Dose Ordered Sig/Mesha Route Start Time Stop Time Status Last Admin (Ativan) 1 mg Q6H PRN PO 12/28/16 00:15 12/28/16 01:38 (Ativan Inj) 1 mg Q6H PRN IM 12/28/16 00:15 (Tylenol) 650 mg Q4H PRN PO 12/28/16 00:15 (Aspirin Chew) 81 mg DAILY PO 12/28/16 09:00 12/29/16 09:07 (Procardia Xl) 30 mg DAILY PO 12/28/16 09:00 12/29/16 09:06 (Desyrel) 50 mg HS PRN PO 12/28/16 00:15 (Lopressor) 50 mg BID PO 12/28/16 09:00 12/29/16 09:07 (Haldol) 10 mg BID PO 12/28/16 09:00 12/29/16 09:06 (Cogentin) 1 mg DAILY PO 12/28/16 09:00 12/29/16 09:07 (Abilify) 10 mg BID PO 12/28/16 09:00 12/29/16 09:07 (Tylenol) 650 mg Q4H PRN PO 12/28/16 09:30 (Milk Of Magnesia Liq) 30 ml DAILY PRN PO 12/28/16 09:30 (Mag-Al Plus Susp Liq) 30 ml Q6H PRN PO 12/28/16 09:30 (Catapres) 0.1 mg Q6H PRN PO 12/28/16 15:30 12/28/16 17:24 Social History lives alone in [place] [facility]. poor self care Patient's Strengths (min. 2) Patient verbal able exercise health care, is cooperative Physical Exam Vital Signs Vital Signs Date Time Temp Pulse Resp B/P Pulse Ox O2 Delivery O2 Flow Rate FiO2 12/29/16 06:24 97.4 90 18 149/85 100 12/27/16 22:10 Room Air Mental Status Examination Speech: Slow, Other (marked thought blocking) Orientation: Person, Place, Time, Situation Memory: Impaired (describe) Thought Process: Linear Thought Content: Depersonal Hallucination Type: Auditory (patient denies that there is significant thought blocking and delayed responses) Attention and Concentration: Other (poor) Suicidal Ideation: No (denies) Previous Suicide Attempts: No Homicidal Ideation: No Previous Homicide Attempts: No Insight: Poor Judgement: Poor Affect if Inappropriate: Flat Mood: Sad Motor Activity: Normal gait Assessment & Plan Problem List: (1) Schizoaffective disorder, bipolar type ICD Code: F25.0 Assessment & Plan Continue current tx plan. I agree with the BA and 2nd opinion paperwork completed. Estimated LOS: days Request HC Surrog/Guard Advoc?: No Ashley Damon MD Dec 29, 2016 19:08
[2016-12-29 21:31] VITALS: BP 142/92; PULSE 80; RESP 16; TEMP 97.3; O2SAT 100
[2016-12-30] MEDS: traZODone HCL 50 MG TAB PO PRN (02:06)
[2016-12-30 06:00] VITALS: BP 143/84; PULSE 89; RESP 18; TEMP 98.1; O2SAT 100
[2016-12-30] MEDS: NIFEdipine 30 MG SUSTAINED RELEASE TAB PO SCH (08:34)
[2016-12-30] MEDS: ARIPiprazole 10 MG TAB PO SCH ×2 (08:35→21:16)
[2016-12-30] MEDS: BENZTROPINE MESYLATE 1 MG TAB PO SCH (08:35)
[2016-12-30] MEDS: ASPIRIN 81 MG CHEW TAB PO SCH (08:35)
[2016-12-30] MEDS: HALOPERIDOL 10 MG TAB PO SCH ×2 (08:35→21:16)
[2016-12-30] MEDS: METOPROLOL TARTRATE 50 MG TAB PO SCH ×2 (08:51→21:17)
--- NOTE | 2016-12-30 12:33 | HHI.PR ---
Subjective Remarks Follow-up visit A. fib, hypertension, HLD. Patient seen today. Reports he is doing well. Discussed lab results and BP trend. Recommendation for statin use and increase dose of BP medication. Denies pain and discomfort. Denies SOB/ dyspnea. Denies chest pain, palpitations, headaches, dizziness. Denies fevers, chills, n/v/d. Objective Vitals Vital Signs Date Time Temp Pulse Resp B/P Pulse Ox O2 Delivery O2 Flow Rate FiO2 12/30/16 06:00 98.1 89 18 143/84 100 12/29/16 21:31 97.3 80 16 142/92 100 Result Diagram: 12/29/1661912/29/16619 Objective Remarks GENERAL: This is a well-nourished, well-developed patient, in no apparent distress. HEENT: Normocephalic. Pupils equal round and reactive. Nose without bleeding. Airway patent. NECK: Trachea midline. No JVD. Supple. CARDIOVASCULAR: Regular rate and rhythm without murmurs, gallops, or rubs. RESPIRATORY: Clear to auscultation. Breath sounds equal bilaterally. No wheezes , rales, or rhonchi. GASTROINTESTINAL: Abdomen soft, non-tender, nondistended. Bowel Sounds normoactive x4. MUSCULOSKELETAL: Extremities without clubbing, cyanosis, or edema. NEUROLOGICAL: Awake and alert. Flat affect. No focal neuro deficit. MANUEL. Normal speech. A/P Problem List: (1) Schizoaffective disorder, bipolar type ICD Code: F25.0 Status: Acute (2) Hypertension ICD Code: I10 Status: Acute Assessment and Plan 66-year-old male admitted to the psychiatric unit under [facility] for schizoaffective disorder. Hospitalist service following for medical management. Schizoaffective disorder- management per psychiatric team Hypertension: -Resume home medications including metoprolol 50 mg twice a day, nifedipine extended release 30 mg daily. Clonidine 0.1 mg 3 times a day when necessary. - Continues to have elevated BP. Increase metoprolol 75 twice a day. - Monitor BP trend Atrial fibrillation- rate controlled continue aspirin daily metoprolol 50 mg daily CKD-baseline creatinine appeared to fluctuated between 1.2-1.3. Creatinine 1.35 on admission avoid nephrotoxic agents encourage PO fluid intake HLD - ASCD 10 year risk 13.4% recommendation for moderate to high intensity statin - Discuss risks and benefits with patient. Agreed with plan. - Lipitor 20 mg daily DVT prop ambulatory Discuss with patient, nursing We will sign off tomorrow if patient remains stable overnight. Written by Shaji Krause, acting as scribe for Dr. Coker on 12/30/16 at 12:33. All or portions of this note were transcribed by scribe Shaji Krause. I, Dr. Matias Coker personally performed the history, physical exam, and medical decision making; and confirmed the accuracy of the information in the transcribed note. Authenticated by Dr. Matias Coker on 12/30/16 at 15:08. Shaji Sheridan Dec 30, 2016 12:33 Matias Coker MD Dec 30, 2016 15:08
[2016-12-30 17:58] VITALS: BP 111/65; PULSE 67; RESP 16; TEMP 96.4; O2SAT 100
--- NOTE | 2016-12-30 19:56 | HHI.PYPN ---
Subjective Remarks Pt seen and discussed with staff. He has been compliant with medications and has not had any behavioral problems. Less disorganization today. No medication side effects. No SI/HI. Objective Alert: Yes [place]: Person, Place, Situation Mood: Calm Affect: Restricted Memory Intact: Immediate, Recent, Remote Hallucinations: Auditory, Other (internally preoccupied) Delusions: Yes Delusion Type: Paranoid Suicidal: Ideation (denies) Homicidal: Ideation (denies) Insight/Judgement poor Vitals/IOs Vital Signs Date Time Temp Pulse Resp B/P Pulse Ox O2 Delivery O2 Flow Rate FiO2 12/30/16 17:58 96.4 67 16 111/65 100 12/27/16 22:10 Room Air Assessment & Plan Problem List: (1) Schizoaffective disorder, bipolar type ICD Code: F25.0 Assessment & Plan Continue current tx plan. Estimated LOS: days Justification for Cont. Inpt. impairments in reality testing Request HC Surrog/Guard Advoc?: No Ashley Damon MD Dec 30, 2016 19:56
[2016-12-30] MEDS: ATORVASTATIN 20 MG TAB PO SCH (21:16)
[2016-12-31] MEDS: LORazepam 1 MG TAB PO PRN (04:28)
[2016-12-31 06:12] VITALS: BP 170/84; PULSE 77; RESP 16; TEMP 98.2; O2SAT 98
[2016-12-31] MEDS: ARIPiprazole 10 MG TAB PO SCH ×2 (08:50→21:22)
[2016-12-31] MEDS: HALOPERIDOL 10 MG TAB PO SCH ×2 (08:50→21:22)
[2016-12-31] MEDS: METOPROLOL TARTRATE 50 MG TAB PO SCH ×2 (08:50→21:24)
[2016-12-31] MEDS: ASPIRIN 81 MG CHEW TAB PO SCH (08:50)
[2016-12-31] MEDS: BENZTROPINE MESYLATE 1 MG TAB PO SCH (08:50)
[2016-12-31] MEDS: NIFEdipine 30 MG SUSTAINED RELEASE TAB PO SCH (08:50)
[2016-12-31] MEDS: cloNIDine HCL 0.1 MG TAB PO PRN (16:29)
--- NOTE | 2016-12-31 16:35 | HHI.PYPN ---
Subjective Remarks Patient discussed with treatment team. Patient seen in [facility] with nurse Jeremie. Chart reviewed. Patient continues marked delayed responses to questions as if responding to internal stimuli. However he denies any auditory hallucinations. When discussing discharge plans including perhaps a transitional facility such as an WIL for a month or 2 he becomes somewhat defensive and irritable. Patient is compliant medications. He does denies suicidality. For now continue treatment Review of Systems Except as stated in HPI: all other systems reviewed are Neg Objective Alert: Yes [place]: Person, Place, Situation Mood: Calm Affect: Restricted Memory Intact: Immediate, Recent, Remote Hallucinations: Auditory, Other (internally preoccupied) Delusions: Yes Delusion Type: Paranoid Suicidal: Ideation (denies) Homicidal: Ideation (denies) Insight/Judgement Poor Vitals/IOs Vital Signs Date Time Temp Pulse Resp B/P Pulse Ox O2 Delivery O2 Flow Rate FiO2 12/31/16 06:12 98.2 77 16 170/84 98 12/27/16 22:10 Room Air Assessment & Plan Problem List: (1) Schizoaffective disorder, bipolar type ICD Code: F25.0 Assessment & Plan Estimated LOS: days patient continues with psychotic features,, showing some irritability and resistance for appropriate placement recommendations Justification for Cont. Inpt. At this time patient will decompensate if placed in a lower level of care Discharge Planning To be determined Request HC Surrog/Guard Advoc?: No Justin Ivy MD Dec 31, 2016 16:35
[2016-12-31 18:00] VITALS: BP 195/110; PULSE 87; RESP 16; TEMP 96.2; O2SAT 98
[2016-12-31 18:35] VITALS: BP 124/74; PULSE 106; O2SAT 98
[2016-12-31 20:10] VITALS: BP 117/65; PULSE 74
[2016-12-31] MEDS: ATORVASTATIN 20 MG TAB PO SCH (21:22)
[2017-01-01 05:41] VITALS: BP 126/66; PULSE 78; RESP 18; TEMP 98.1; O2SAT 96
[2017-01-01] MEDS: ASPIRIN 81 MG CHEW TAB PO SCH (08:27)
[2017-01-01] MEDS: BENZTROPINE MESYLATE 1 MG TAB PO SCH (08:27)
[2017-01-01] MEDS: ARIPiprazole 10 MG TAB PO SCH ×2 (08:27→20:41)
[2017-01-01] MEDS: METOPROLOL TARTRATE 50 MG TAB PO SCH ×2 (08:27→20:42)
[2017-01-01] MEDS: HALOPERIDOL 10 MG TAB PO SCH ×2 (08:27→20:42)
[2017-01-01] MEDS: NIFEdipine 30 MG SUSTAINED RELEASE TAB PO SCH (08:28)
[2017-01-01] MEDS ORDERED: METO-309 PO (12:01)
[2017-01-01] MEDS ORDERED: HALO10TA PO (12:01)
[2017-01-01] MEDS ORDERED: NIFE30TA8 PO (12:01)
[2017-01-01] MEDS ORDERED: Aspirin Chew PO (12:01)
[2017-01-01] MEDS ORDERED: BENZ1TAB PO (12:01)
[2017-01-01] MEDS ORDERED: LIPI20TA PO (12:01)
[2017-01-01] MEDS ORDERED: ARIP1TAB12 PO (12:01)
[2017-01-01] MEDS ORDERED: TRAZ50TA12 PO (12:01)
--- NOTE | 2017-01-01 12:16 | HHI.DS ---
Psychiatry Discharge Summary Inpatient Psychiatric care?: Yes Advance Directive: No Reason Not Provided: Due to Patient Condition Mental Health AdvanceDirective: No Health Care Proxy: No Admission Admission Date Dec 27, 2016 at 23:11 Admission Diagnosis: (1) Schizoaffective disorder, bipolar type ICD Code: F25.0 Brief History Pt was seen and discussed with staff. Chart reviewed. Pt is a 66YOWM with schizoaffective d/o admitted under a BA who is well known to psychiatry service due to multiple admissions over the years. He was recently discharged on 2016 from [facility] [place]. He reports that he did not take medications of f/u with [facility] after discharge. He was BA by LENIN who noted self neglect and bizarre behavior. He has been disorganized in TP and behaviors on unit. Self care is poor. He denies SI/HI. Tobacco Use In Past 30 Days: No Tobacco Past 30 Days Alcohol Use: Never Hospital Course Patient's course in the hospital was somewhat uneventful, the show compliance with his medication from the onset. Though there is minimal socialization, spending much time in his room, there continue significant delays and responses to questions as if responding to internal stimuli though he did deny auditory hallucinations. He did denies suicidality or homicidality. When discussed with the treatment team it appears this is patient's baseline behaviors. The treatment team did agree that patient was unable to return to independent living at this time and did recommend a placement in an PRISON upon discharge. When discussing this with the patient he showed some resistance to a placement in an WIL however he did agree to it. Patient continue compliant with medications denying suicidality homicidality or voices. Patient was seen by [facility]. There is a bed available for him there today. Patient is willing to go there albeit reluctantly. Patient to be discharged to that facility today with Rx 1 month. To follow-up [facility] outpatient mental health services Results Blood Pressure 126 / 66 Vital Signs Date Time Temp Pulse Resp B/P Pulse Ox O2 Delivery O2 Flow Rate FiO2 01/01/17 05:41 98.1 78 18 126/66 96 Urine toxicology negative Summary of Procedures None done Pending results at discharge: No Medications # of Antipsychotic meds at D/C: 2 Appropriate >1 Antipsych meds?: 1 Approp Antipsych med options 1 - Minimum of three failed multiple trials of monotherapy. 2 - Documented plan to taper to monotherapy due to previous use of multiple meds OR cross-taper in progress at D/C. 3 - Documentation of augmentation of Clozapine. 4 - Justification other than those listed in allowable values 1-3, document here : Discharge Discharge Date: Jan 01, 2017 Discharge Diagnosis: (1) Schizoaffective disorder, bipolar type Diagnosis: Principal ICD Code: F25.0 Mental Status Exam at Disch Alert white male sitting calmly in chair in day room, he is guarded, his responses showed marked delay as if responding to internal stimuli though denying voices. He is somewhat hypo-active, his mood is restricted with marked decreased range and intensity, speech shows marketed delays responses are brief somewhat tangential though at times goal oriented, he denies any auditory or visual hallucinations, there are no delusions noted though he is somewhat vigilant. Insight and judgment is poor cognition is grossly intact Pt Condition on Discharge: Stable Discharge Disposition: ACLF/WIL Discharge Instructions Diet Instructions: As Tolerated, No Restrictions Activities you can perform: Regular-No Restrictions Scheduled Appointment: Mark Diaz Discharge Time > 30 minutes Discharge/Advance Care Plan Health Problems: (1) Schizoaffective disorder, bipolar type Goals to promote your health * To prevent worsening of your condition and complications * To maintain your health at the optimal level Directions to meet your goals Take your medications as prescribed Follow your dietary instruction Follow activity as directed Keep your appointments as scheduled Take your immunizations and boosters as scheduled If your symptoms worsen call your PCP, if no PCP go to Urgent Care Center or Emergency Room For 22/04 questions related to your inpatient stay or results of tests pending at discharge, please contact Dr. Justin Ivy at Smoking is Dangerous to Your Health. Avoid second hand smoking Justin Ivy MD Jan 01, 2017 12:16
--- NOTE | 2017-01-01 13:58 | HHI.PR ---
Subjective Remarks Follow-up visit A. fib, hypertension, HLD. Patient seen today. Reports he is doing well. Reports no adverse reaction increase BP medication and use of atorvastatin. Denies pain and discomfort. Denies SOB/ dyspnea. Denies chest pain, palpitations, headaches, dizziness. Denies fevers, chills, n/v/d. Objective Vitals Vital Signs Date Time Temp Pulse Resp B/P Pulse Ox O2 Delivery O2 Flow Rate FiO2 01/01/17 05:41 98.1 78 18 126/66 96 12/31/16 20:10 74 117/65 12/31/16 18:35 106 124/74 98 12/31/16 18:00 96.2 87 16 195/110 98 Result Diagram: 12/29/1661912/29/16619 Objective Remarks GENERAL: This is a well-nourished, well-developed patient, in no apparent distress. HEENT: Normocephalic. Pupils equal round and reactive. Nose without bleeding. Airway patent. NECK: Trachea midline. No JVD. Supple. CARDIOVASCULAR: Regular rate and rhythm without murmurs, gallops, or rubs. RESPIRATORY: Clear to auscultation. Breath sounds equal bilaterally. No wheezes , rales, or rhonchi. GASTROINTESTINAL: Abdomen soft, non-tender, nondistended. Bowel Sounds normoactive x4. MUSCULOSKELETAL: Extremities without clubbing, cyanosis, or edema. NEUROLOGICAL: Awake and alert. Flat affect. No focal neuro deficit. MANUEL. Normal speech. A/P Problem List: (1) Schizoaffective disorder, bipolar type ICD Code: F25.0 Status: Acute (2) Hypertension ICD Code: I10 Status: Acute Assessment and Plan 66-year-old male admitted to the psychiatric unit under [facility] for schizoaffective disorder. Hospitalist service following for medical management. Schizoaffective disorder- management per psychiatric team Hypertension: -Resume home medications including metoprolol 50 mg twice a day, nifedipine extended release 30 mg daily. Clonidine 0.1 mg 3 times a day when necessary. - Continues to have elevated BP. Increase metoprolol 75 twice a day. - Monitor BP trend - Improved control. Atrial fibrillation- rate controlled continue aspirin daily metoprolol 75 mg daily CKD-baseline creatinine appeared to fluctuated between 1.2-1.3. Creatinine 1.35 on admission avoid nephrotoxic agents encourage PO fluid intake HLD - ASCD 10 year risk 13.4% recommendation for moderate to high intensity statin - Discuss risks and benefits with patient. Agreed with plan. - Lipitor 20 mg daily DVT prop ambulatory Discuss with patient, nursing, Dr. Sheela Chilel from Hospitalist standpoint. Medically cleared for discharge Shaji Sheridan Jan 01, 2017 13:58 Matias Coker MD Jan 01, 2017 17:38
[2017-01-01 16:57] VITALS: BP 148/96; PULSE 73; RESP 18; TEMP 96.6; O2SAT 97
[2017-01-01] MEDS: ATORVASTATIN 20 MG TAB PO SCH (20:41)
[2017-01-01] MEDS: traZODone HCL 50 MG TAB PO PRN (20:42)
[2017-01-02] MEDS: LORazepam 1 MG TAB PO PRN (03:10)
[2017-01-02 06:06] VITALS: BP 125/70; PULSE 66; RESP 18; TEMP 98.1; O2SAT 98
[2017-01-02] MEDS: NIFEdipine 30 MG SUSTAINED RELEASE TAB PO SCH (08:40)
[2017-01-02] MEDS: ASPIRIN 81 MG CHEW TAB PO SCH (08:40)
[2017-01-02] MEDS: METOPROLOL TARTRATE 50 MG TAB PO SCH (08:40)
[2017-01-02] MEDS: BENZTROPINE MESYLATE 1 MG TAB PO SCH (08:41)
[2017-01-02] MEDS: HALOPERIDOL 10 MG TAB PO SCH (08:41)
[2017-01-02] MEDS: ARIPiprazole 10 MG TAB PO SCH (08:41)
--- NOTE | 2017-01-02 12:49 | HHI.PYPN ---
Subjective Remarks Patient discussed with treatment team today. Patient seen on unit. It appears the insurance papers are now appropriate and patient is to be discharged today to [place]. Patient continues willing to go there though somewhat reluctantly. Compliant medication. No other significant behavioral issues noted thus patient to be discharged today Review of Systems Except as stated in HPI: all other systems reviewed are Neg Objective Alert: Yes [place]: Person, Place, Situation Mood: Calm Affect: Restricted Memory Intact: Immediate, Recent, Remote Hallucinations: Other (internally preoccupied) Delusions: Yes Delusion Type: Paranoid (markedly decreased) Suicidal: Ideation (denies) Homicidal: Ideation (denies) Insight/Judgement Poor Vitals/IOs Vital Signs Date Time Temp Pulse Resp B/P Pulse Ox O2 Delivery O2 Flow Rate FiO2 01/02/17 06:06 98.1 66 18 125/70 98 Assessment & Plan Problem List: (1) Schizoaffective disorder, bipolar type ICD Code: F25.0 Assessment & Plan Estimated LOS: days patient continues willing to be discharged today to [facility] , albeit somewhat reluctantly. He now denies voices denies suicidality. Patient to be discharged today Justification for Cont. Inpt. Patient to be discharged today Discharge Planning To be determined Request HC Surrog/Guard Advoc?: No Justin Ivy MD Jan 02, 2017 12:49
== END 2017-01-02 16:15 | DRG 885 ==
LOC: NEPE 13:55 → NEDA 23:11 → H260 23:40
PROVIDERS: ADMIT Psychiatry & Neurology Psychiatry; ATTEND Psychiatry & Neurology Psychiatry
DX: F25.0 Schizoaffective disorder, bipolar type (principal); I48.91 Unspecified atrial fibrillation; J44.9 Chronic obstructive pulmonary disease, unspecified; I12.9 Hypertensive chronic kidney disease with stage 1 through stage 4 chronic kidney disease, or unspecified chronic kidney disease; F25.1 Schizoaffective disorder, depressive type; N18.9 Chronic kidney disease, unspecified; E78.5 Hyperlipidemia, unspecified; Y90.0 Blood alcohol level of less than 20 mg/100 ml; F17.200 Nicotine dependence, unspecified, uncomplicated; Z79.82 Long term (current) use of aspirin; Z79.899 Other long term (current) drug therapy; Z91.14 Patient's other noncompliance with medication regimen
CPT/HCPCS: 80048; 80053; 80307; 81001; 84439; 84443; 85025; 99285

== ENCOUNTER 2017-01-03 09:49 | Inpatient (IN) | payer OTHER ==
[~2017-01-03] VITALS: Ht 177.8 cm; Wt 90.0 kg
[~2017-01-03 09:49] MED LIST changes: +ARIP1TAB12 PO; +Aspirin Chew PO; +LIPI20TA PO
[2017-01-03 09:51] VITALS: BP 171/100; PULSE 84; RESP 16; TEMP 98.2; O2SAT 98
--- NOTE | 2017-01-03 10:35 | PD ---
HPI Chief Complaint: Psychiatric Symptoms Time Seen by Provider: 10:27 Travel History International Travel<30 days: No Contact w/Intl Traveler<30days: No Traveled to known affect area: No History of Present Illness HPI This is a 66-year-old gentleman with history of schizoaffective disorder, hypertension, who presents from [facility] for evaluation of medication compliance for psychiatric medications. The patient is unable to give any history as to why he is here. He does obviously have psychiatric issues and is not informed as to why he was here. He denies any pain. He denies any toxic ingestion. He does state that he has been taking his medications as prescribed. PFSH Past Medical History Asthma: No Atrial Fibrillation: Yes Blood Disorders: No Bipolar Disorder: Yes Anxiety: Yes Depression: Yes Heart Rhythm Problems: Yes Cancer: No (See EMR) Cardiovascular Problems: Yes (AFIB, HYPERTENSION) Chemotherapy: No Chest Pain: No Congestive Heart Failure: No COPD: Yes Cerebrovascular Accident: No Diminished Hearing: No Endocrine: No (UNKNOWN) Glaucoma: No Hypertension: Yes Immune Disorder: No (UNKNOWN) Musculoskeletal: No Psychiatric: Yes (Schizoaffective Disorder) Respiratory: Yes Immunizations Current: No Myocardial Infarction: No Radiation Therapy: No Schizophrenia: Yes (SCHIZO AFFECTIVE DISORDER) Sickle Cell Disease: No Sleep Apnea: No Tetanus Vaccination: < 5 Years Influenza Vaccination: Yes Past Surgical History AICD: No Ear Surgery: No Eye Surgery: Yes (R EYE LASER SURGERY) Genitourinary Surgery: No Gynecologic Surgery: No Joint Replacement: No Oral Surgery: No Pacemaker: No Social History Alcohol Use: No Tobacco Use: No (QUIT) Substance Use: No Allergies-Medications (Allergen,Severity, Reaction): Coded Allergies: No Known Allergies (Verified , 01/03/17) Per pt. Reported Meds & Prescriptions Reported Meds & Active Scripts Active Trazodone (Trazodone HCl) 50 Mg Tab 50 Mg PO HS PRN Nifedipine ER 24 HR (Nifedipine) 30 Mg Tab 30 Mg PO DAILY Lopressor (Metoprolol Tartrate) 50 Mg Tab 75 Mg PO 1 1/2 PO BID Haloperidol 10 Mg Tab 10 Mg PO BID Benztropine (Benztropine Mesylate) 1 Mg Tab 1 Mg PO DAILY Lipitor (Atorvastatin Calcium) 20 Mg Tab 20 Mg PO HS Aripiprazole 10 Mg Tab 10 Mg PO BID Aspirin 81 Mg Tabdr 81 Mg PO DAILY Review of Systems Except as stated in HPI: all other systems reviewed are Neg General / Constitutional: No: Fever, Chills HENT: No: Headaches, Lightheadedness Cardiovascular: No: Chest Pain or Discomfort, Palpitations Respiratory: No: Cough, Shortness of Breath Gastrointestinal: No: Nausea, Vomiting, Abdominal Pain Musculoskeletal: No: Weakness, Pain Neurologic: No: Weakness, Headache Psychiatric: Positive: Disorder of Thought, No: Suicidal Ideations, Substance Abuse, Homicidal Ideation Physical Exam Narrative GENERAL: Well-developed well-nourished gentleman who appears agitated. SKIN: Focused skin assessment warm/dry. HEAD: Atraumatic. Normocephalic. EYES: No scleral icterus. No injection or drainage. ENT: Mucous membranes pink and moist. NECK: Trachea midline. No JVD. CARDIOVASCULAR: Regular rate and rhythm. No murmur appreciated. RESPIRATORY: No accessory muscle use. Clear to auscultation. Breath sounds equal bilaterally. Hepatic and splenic margins not palpable. MUSCULOSKELETAL: No obvious deformities. No clubbing. No cyanosis. No edema. NEUROLOGICAL: Awake and alert. No obvious cranial nerve deficits. Motor grossly within normal limits. PSYCHIATRIC: Flat affect. The patient appears agitated however does answer questions. Data Data Last Documented VS Vital Signs Date Time Temp Pulse Resp B/P Pulse Ox O2 Delivery O2 Flow Rate FiO2 01/03/17 09:51 98.2 84 16 171/100 98 Orders Complete Blood Count With Diff (01/03/17 10:27) Comprehensive Metabolic Panel (01/03/17 10:27) Psych Screen (01/03/17 10:27) Drug Screen, Random Urine (01/03/17 10:27) Sodium Chlor 0.9% 1000 Ml Inj (Ns 1000 M (01/03/17 12:00) Diet Regular Basic (01/03/17 Lunch) Labs Laboratory Tests Test 01/03/17 01/03/17 10:35 11:10 White Blood Count 8.7 TH/MM3 Red Blood Count 4.90 MIL/MM3 Hemoglobin 14.3 GM/DL Hematocrit 42.1 % Mean Corpuscular Volume 86.0 FL Mean Corpuscular Hemoglobin 29.1 PG Mean Corpuscular Hemoglobin 33.9 % Concent Red Cell Distribution Width 14.5 % Platelet Count 170 TH/MM3 Mean Platelet Volume 11.0 FL Neutrophils (%) (Auto) 74.1 % Lymphocytes (%) (Auto) 17.2 % Monocytes (%) (Auto) 8.0 % Eosinophils (%) (Auto) 0.4 % Basophils (%) (Auto) 0.3 % Neutrophils # (Auto) 6.5 TH/MM3 Lymphocytes # (Auto) 1.5 TH/MM3 Monocytes # (Auto) 0.7 TH/MM3 Eosinophils # (Auto) 0.0 TH/MM3 Basophils # (Auto) 0.0 TH/MM3 CBC Comment DIFF FINAL Differential Comment Sodium Level 141 MEQ/L Potassium Level 4.1 MEQ/L Chloride Level 110 MEQ/L Carbon Dioxide Level 22.4 MEQ/L Anion Gap 9 MEQ/L Blood Urea Nitrogen 28 MG/DL Creatinine 1.51 MG/DL Estimat Glomerular Filtration 47 ML/MIN Rate Random Glucose 111 MG/DL Calcium Level 9.5 MG/DL Total Bilirubin 0.4 MG/DL Aspartate Amino Transf 14 U/L (AST/SGOT) Alanine Aminotransferase 21 U/L (ALT/SGPT) Alkaline Phosphatase 64 U/L Total Protein 6.7 GM/DL Albumin 3.7 GM/DL Urine Opiates Screen NEG Urine Barbiturates Screen NEG Urine Amphetamines Screen NEG Urine Benzodiazepines Screen NEG Urine Cocaine Screen NEG Urine Cannabinoids Screen NEG MDM Medical Decision Making Medical Screen Exam Complete: Yes Emergency Medical Condition: Yes Differential Diagnosis Make his noncompliance versus acute psychosis versus metabolic derangement Narrative Course 66-year-old gentleman with history of schizoaffective disorder, presents from the [facility] for evaluation with psychiatric services. The patient. He has not been compliant with his medications. He does appear to be acutely agitated. Laboratory tests are within normal limits except for an elevated BUN/ creatinine. This is likely due to prerenal azotemia. He has been given 1 L fluid fluid bolus. He'll be medically cleared for psychiatric evaluation. Diagnosis Primary Impression: Schizoaffective disorder, bipolar type Additional Impression: Acute prerenal azotemia Tyrone Perry MD Jan 03, 2017 10:35 Tyrone Perry MD Jan 03, 2017 10:35
[2017-01-03 10:55] LABS: AUTOMATED NEUTROPHIL # 6.5 TH/MM3 (1.8-7.7); BASOPHIL % 0.3 % (0.0-2.0); EOSINOPHIL % 0.4 % (0.0-4.0); HEMATOCRIT 42.1 % (39.0-51.0); HEMO FLAGS DIFF FINAL; LYMPH % 17.2 % (9.0-44.0); LYMPHOCYTE # 1.5 TH/MM3 (1.0-4.8); MEAN CORPUSCULAR HEMOGLOBIN 29.1 PG (27.0-34.0); MEAN CORPUSCULAR HGB CONC 33.9 % (32.0-36.0); NEUT % 74.1 % (16.0-70.0); PLATELET COUNT 170 TH/MM3 (150-450); RED CELL DISTRIBUTION WIDTH 14.5 % (11.6-17.2); WHITE BLOOD COUNT 8.7 TH/MM3 (4.0-11.0)
[2017-01-03 11:13] LABS: ALT (GPT) 21 U/L (12-78); ANION GAP 9 MEQ/L (5-15); AST (GOT) 14 U/L (15-37); BICARBONATE 22.4 MEQ/L (21.0-32.0); BLOOD UREA NITROGEN 28 MG/DL (7-18); CHLORIDE 110 MEQ/L (98-107); GLOMERULAR FILTRATION RATE 47 ML/MIN (>89); POTASSIUM 4.1 MEQ/L (3.5-5.1); SODIUM (NA) 141 MEQ/L (136-145)
[2017-01-03 11:15] LABS: ALKALINE PHOSPHATASE 64 U/L (45-117); TOTAL BILIRUBIN ADULT 0.4 MG/DL (0.2-1.0)
[2017-01-03 11:43] LABS: AMPHETAMINE, URINE NEG (NEG); BARBITURATES, URINE NEG (NEG); COCAINE, URINE NEG (NEG)
[2017-01-03] MEDS ORDERED: SODIUM CHLOR 0.9% 1000 ML INJ 1,000 ML IV ONE (12:00)
[2017-01-03 15:00] VITALS: BP 156/97; PULSE 90; RESP 18; TEMP 97.4; O2SAT 99
[2017-01-03] MEDS ORDERED: ACETAMINOPHEN 325 MG TAB PO PRN (15:15)
[2017-01-03] MEDS ORDERED: traZODone HCL 50 MG TAB PO PRN (15:15)
[2017-01-03] MEDS ORDERED: hydrOXYzine HCL 50 MG TAB PO PRN (15:15)
[2017-01-03] MEDS ORDERED: MAGNESIUM HYDROXIDE SUSP 30 ML CUP PO PRN (15:15)
[2017-01-03] MEDS ORDERED: ALUMINUM/MAGNESIUM/SIMETH 30 ML CUP PO PRN (15:15)
[2017-01-03] MEDS ORDERED: LORazepam 2 MG/ML VIAL IM PRN (15:30)
[2017-01-03] MEDS ORDERED: PILL SPLITTER OTHER PRN (15:30)
--- NOTE | 2017-01-03 15:30 | HHI.HP ---
Provisional Diagnosis Admission Date Jan 03, 2017 at 13:54 [place]. Schizoaffective disorder bipolar type f 25.0 Certification of Person's Competence To Provide Express and Informed Consent I have personally examined Luis Daniel Desir , a person being served at [facility] on, Jan 03, 2017 15:15. Express and informed consent means consent voluntarily given in writing, by a competent person, after sufficient explanation and disclosure of the subject matter involved to enable the person to make a knowing and willful decision without any element of force, fraud, deceit, duress, or other form of constraint or coercion. This person is 18 years of age or older, is not now known to be incompetent to consent to treatment with a guardian advocate, and does not have a health care surrogate or proxy currently making medical treatment decisions. I have found this person to be one of the following: [x] Competent to provide express and informed consent, as defined above, for voluntary admission to this facility and is competent to provide express and informed consent for treatment. He/she has the consistent capacity to make well reasoned, willful, and knowing decisions concerning his or her medical or mental health treatment. The person fully and consistently understands the purpose of the admission for examination/placement and is fully capable of personally exercising all rights assured [place] Incompetent to provide express and informed consent to voluntary admission, and this is incompetent to provide express and informed consent to treatment. The person must be transferred to involuntary status and a petition for a guardian advocate filed with the Circuit Court. [] Refusing to provide express and informed consent to voluntary admission but is competent to provide express and informed consent for treatment. The person must be discharged or transferred to involuntary status. Form shall be completed within 24 hours of a person's arrival at the receiving facility and filed in the clinical record of each person: 1. Admitted on a voluntary basis 2. Permitted to provide express and informed consent to his/her own treatment 3. Allowed to transfer from involuntary to voluntary status 4. Prior to permitting a person to consent to his or her own treatment after having been previously found incompetent to consent to treatment. History of Present Illness Capacity: Has Capacity HPI Patient is a 66-year-old white male well-known to me from multiple prior contacts and hospitalization was discharged from the inpatient unit yesterday after a stay from 3/3/17 to 01/02/17 . He reluctantly agreed to placement and an [facility], [facility]. The treatment team and I felt he was not able to live independently in his trailer even with the assistance of a neighbor. He did disagree with this but accepted our decision. However once he was placed at [facility] he made multiple attempts to leave their walking to the front door attempting to open it hearing his possessions with them. This caused much consternation with the staff there relating to them returning him to the [facility] ED and our psych screeners. He agreed to a voluntary admission to the psychiatric unit for further care. Patient seen by me on 2600 unit a look at me though somewhat anxious nervous gaze. Saying "it didn't work out" and I want to go to my home. I did discuss with them the alternatives of perhaps considering someway Elly returned to his trailer with home health care and appropriate monitoring. He showed some irritability when suggesting this though the other only option would appear to be a referral to the [facility]. Patient then nodded agreement. At this time we'll continue him on a voluntary basis will be restarting his medications that he had through the med reconciliation. We'll continue the hospitalist consultation also. We'll talk with the counselors tomorrow attempt to make this a brief stay to perhaps look at resources to keep her mental trailer Review of Systems ROS Limitations: Uncooperative Constitutional: DENIES: Diaphoretic episodes, Fatigue, Fever, Weight gain, Weight loss, Chills, Dizziness, Change in appetite, Night Sweats Endocrine: DENIES: Heat/cold intolerance, Polydipsia, Polyuria, Polyphagia Eyes: DENIES: Blurred vision, Diplopia, Eye inflammation, Eye pain, Vision loss , Photosensitivity, Double Vision Ears, nose, mouth, throat: DENIES: Tinnitus, Hearing loss, Vertigo, Nasal discharge, Oral lesions, Throat pain, Hoarseness, Ear Pain, Running Nose, Epistaxis, Sinus Pain, Toothache, Odynophagia Respiratory: DENIES: Apneas, Cough, Snoring, Wheezing, Hemoptysis, Sputum production, Shortness of breath Cardiovascular: DENIES: Chest pain, Palpitations, Syncope, Dyspnea on Exertion , PND, Lower Extremity Edema, Orthopnea, Claudication Gastrointestinal: DENIES: Abdominal pain, Black stools, Bloody stools, Constipation, Diarrhea, Nausea, Vomiting, Difficulty Swallowing, Anorexia Genitourinary: DENIES: Sexual dysfunction, Urinary frequency, Urinary incontinence, Urgency, Hematuria, Dysuria, Nocturia, Penile Discharge, Testicular Pain, Testicular Swelling Musculoskeletal: DENIES: Joint pain, Muscle aches, Stiffness, Joint Swelling, Back pain, Neck pain Integumentary: DENIES: Abnormal pigmentation, Nail changes, Pruritus, Rash Hematologic/lymphatic: DENIES: Bruising, Lymphadenopathy Immunologic/allergic: DENIES: Eczema, Urticaria Neurologic: DENIES: Abnormal gait, Headache, Localized weakness, Paresthesias, Seizures, Speech Problems, Tremor, Poor Balance Psychiatric: COMPLAINS OF: Anxiety, Depression, Agitation Past Psych History Psychological trauma history Denies at this time Violence risk - others (6 mos) Low Violence risk - self (6 mos) Low though there is the issue of self neglect Substance Abuse History Drugs/Alcohol past 12 months Denies Past Family Social History Coded Allergies: No Known Allergies (Verified , 01/03/17) Per pt. Past Medical History Please see MedSurg assessments Active Scripts Trazodone 50 Mg Tab50 Mg PO HS PRN (INSOMNIA) #15 TAB Ref 0 Prov:Justin Ivy MD 01/01/17 Nifedipine ER 24 HR 30 Mg Tab30 Mg PO DAILY #30 TAB Ref 0 Prov:Justin Ivy MD 01/01/17 Metoprolol Tartrate (Lopressor)50 Mg Tab75 Mg PO 1 1/2 po bid #45 TAB Ref 0 Prov:Justin Ivy MD 01/01/17 Haloperidol 10 Mg Tab10 Mg PO BID #60 TAB Ref 0 Prov:Justin Ivy MD 01/01/17 Benztropine 1 Mg Tab1 Mg PO DAILY #30 TAB Ref 0 Prov:Justin Ivy MD 01/01/17 Atorvastatin (Lipitor)20 Mg Tab20 Mg PO HS #30 TAB Ref 0 Prov:Justin Ivy MD 01/01/17 Aripiprazole 10 Mg Tab10 Mg PO BID #60 TAB Ref 0 Prov:Justin Ivy MD 01/01/17 Aspirin 81 Mg Tabdr81 Mg PO DAILY #30 TAB Prov:Andrew Elaine MD 3/21/17 Discontinued Reported Medications Clonidine 0.1 Mg Tab0.1 Mg PO q8 #60 TAB Ref 0 12/08/16 Current Medications Medications (Trade) Dose Ordered Sig/Mesha Route Start Time Stop Time Status Last Admin (Benadryl) 50 mg HS PRN PO 01/03/17 15:15 UNV (Tylenol) 650 mg Q4H PRN PO 01/03/17 15:15 UNV (Milk Of Magnesia Liq) 30 ml DAILY PRN PO 01/03/17 15:15 UNV (Mag-Al Plus Susp Liq) 30 ml Q6H PRN PO 01/03/17 15:15 UNV (Atarax) 50 mg Q6H PRN PO 01/03/17 15:15 UNV (Abilify) 10 mg BID PO 01/03/17 21:00 UNV (Ecotrin Ec) 81 mg DAILY PO 01/04/17 09:00 UNV (Lipitor) 20 mg HS PO 01/03/17 21:00 UNV (Cogentin) 1 mg DAILY PO 01/04/17 09:00 UNV (Haldol) 10 mg BID PO 01/03/17 21:00 UNV (Lopressor) 75 mg DAILY PO 01/04/17 09:00 UNV (Procardia Xl) 30 mg DAILY PO 01/04/17 09:00 UNV (Desyrel) 50 mg HS PRN PO 01/03/17 15:15 UNV Family History Denies mental health history and family Social History Patient lives alone in [place] has had difficulty with maintaining himself Patient's Strengths (min. 2) Patient verbal labile access healthcare Physical Exam Patient seen screened in ED exam reviewed and agreed with vital signs blood pressure 156/97 pulse 90 respirations 18 Vital Signs Vital Signs Date Time Temp Pulse Resp B/P Pulse Ox O2 Delivery O2 Flow Rate FiO2 01/03/17 09:51 98.2 84 16 171/100 98 Mental Status Examination Alert oriented white male appears stated age sitting him markedly nervous anxious attitude with poor eye contact though somewhat defensive about his return to the unit Appearance Slightly disheveled Speech: Rapid, Hesitant, Tangential Orientation: x3 Memory: Unremarkable Thought Process: Linear Thought Content: Unremarkable Language Swedish Fund of Knowledge Poor Hallucination Type: None (denies) Attention and Concentration: Other (poor) Suicidal Ideation: No (denies) Previous Suicide Attempts: No Homicidal Ideation: No (denies) Previous Homicide Attempts: No Insight: Poor Judgment: Poor Affect: Other (decreased range slight increase intensity) Mood: Sad Motor Activity: Normal gait Assessment & Plan Problem List: (1) Schizoaffective disorder, bipolar type ICD Code: F25.0 Assessment & Plan Estimated LOS: 3-5 days it appears patient was able to manipulate his admission to the [facility]. Living to him being return to the ED and to this rehospitalization. We need to consider alternatives perhaps an attempt again at placement in his trailer with sufficient home health care referrals. Also there at least needs to be the consideration of a referral to the [facility] hospital will continue medications from his med reconciliation. The hospitalist continue their consultation also Discharge Planning To be determined Request HC Surrog/Guard Advoc?: Justin Thomason MD Jan 03, 2017 15:30
[2017-01-03] MEDS ORDERED: cloNIDine HCL 0.1 MG TAB PO PRN (16:30)
--- NOTE | 2017-01-03 16:32 | PD.CONS ---
HPI Service [facility] Hospitalists Consult Requested By Dr. Ivy Reason for Consult Assist in the management of medical condition [facility] Diagnoses: History of Present Illness 66-year-old male with a past history of schizophrenia, anxiety, depression, HTN , A. fib, HLD who presented for psychiatric evaluation. Hospitalist service was consulted for medical management. The patient was discharged from inpatient psychiatry yesterday to [facility] because it was determined that he was not safe to live on his own. He was sent back to the ED because he was trying to leave the [facility] and subsequently admitted again to inpatient psychiatry. The patient has no acute medical complaints at this time. He states that he took his medication this morning. He states that he's been eating well. He denies any headache, chest pain, shortness breath, nausea, vomiting, diarrhea. Review of Systems Except as stated in HPI: all other systems reviewed are Neg Past Family Social History Allergies: Coded Allergies: No Known Allergies (Verified , 01/03/17) Per pt. Past Medical History Schizophrenia Anxiety Depression Hypertension Atrial fibrillation Hyperlipidemia Past Surgical History Eye surgery Reported Medications Trazodone (Trazodone HCl) 50 Mg Tab 50 Mg PO HS PRN Nifedipine ER 24 HR (Nifedipine) 30 Mg Tab 30 Mg PO DAILY Lopressor (Metoprolol Tartrate) 50 Mg Tab 75 Mg PO 1 1/2 PO BID Haloperidol 10 Mg Tab 10 Mg PO BID Benztropine (Benztropine Mesylate) 1 Mg Tab 1 Mg PO DAILY Lipitor (Atorvastatin Calcium) 20 Mg Tab 20 Mg PO HS Aripiprazole 10 Mg Tab 10 Mg PO BID Aspirin 81 Mg Tabdr 81 Mg PO DAILY Active Ordered Medications Current Medications Medications (Trade) Dose Ordered Sig/Mesha Route Start Time Stop Time Status Last Admin (Benadryl) 50 mg HS PRN PO 01/03/17 15:15 (Tylenol) 650 mg Q4H PRN PO 01/03/17 15:15 (Milk Of Magnesia Liq) 30 ml DAILY PRN PO 01/03/17 15:15 (Mag-Al Plus Susp Liq) 30 ml Q6H PRN PO 01/03/17 15:15 (Atarax) 50 mg Q6H PRN PO 01/03/17 15:15 (Abilify) 10 mg BID PO 01/03/17 21:00 (Ecotrin Ec) 81 mg DAILY PO 01/04/17 09:00 (Lipitor) 20 mg HS PO 01/03/17 21:00 (Cogentin) 1 mg DAILY PO 01/04/17 09:00 (Haldol) 10 mg BID PO 01/03/17 21:00 (Lopressor) 75 mg DAILY PO 01/04/17 09:00 (Procardia Xl) 30 mg DAILY PO 01/04/17 09:00 (Desyrel) 50 mg HS PRN PO 01/03/17 15:15 (Pill Splitter) 1 ea UNSCH PRN OTHER 01/03/17 15:30 (Ativan) 1 mg Q6H PRN PO 01/03/17 15:30 (Ativan Inj) 1 mg Q6H PRN IM 01/03/17 15:30 Family History Father had [place] Social History Denies alcohol, tobacco, or illegal drug use Physical Exam Vital Signs Vital Signs Date Time Temp Pulse Resp B/P Pulse Ox O2 Delivery O2 Flow Rate FiO2 01/03/17 15:00 97.4 90 18 156/97 99 01/03/17 09:51 98.2 84 16 171/100 98 Physical Exam GENERAL: Well-developed well-nourished. In no acute distress. SKIN: Warm and dry. No lesions noted. HEENT: Normocephalic. Pupils equal and round. Mucous membranes pink and moist. CARDIOVASCULAR: Irregular rate and rhythm. No murmur appreciated. RESPIRATORY: No accessory muscle use. Clear to auscultation. Breath sounds equal bilaterally. GASTROINTESTINAL: Abdomen soft, non-tender, nondistended. Bowel sounds x4. MUSCULOSKELETAL: No obvious deformities. No clubbing or cyanosis. Trace lower extremity edema. NEUROLOGICAL: Awake and alert. No focal neurological deficits. Moves upper and lower extremities spontaneously. Normal speech. PSYCHIATRIC: Appropriate mood and flat affect; insight and judgment normal. Laboratory Laboratory Tests Test 01/03/17 01/03/17 10:35 11:10 White Blood Count 8.7 Red Blood Count 4.90 Hemoglobin 14.3 Hematocrit 42.1 Mean Corpuscular Volume 86.0 Mean Corpuscular Hemoglobin 29.1 Mean Corpuscular Hemoglobin 33.9 Concent Red Cell Distribution Width 14.5 Platelet Count 170 Mean Platelet Volume 11.0 Neutrophils (%) (Auto) 74.1 Lymphocytes (%) (Auto) 17.2 Monocytes (%) (Auto) 8.0 Eosinophils (%) (Auto) 0.4 Basophils (%) (Auto) 0.3 Neutrophils # (Auto) 6.5 Lymphocytes # (Auto) 1.5 Monocytes # (Auto) 0.7 Eosinophils # (Auto) 0.0 Basophils # (Auto) 0.0 CBC Comment DIFF FINAL Differential Comment Sodium Level 141 Potassium Level 4.1 Chloride Level 110 Carbon Dioxide Level 22.4 Anion Gap 9 Blood Urea Nitrogen 28 Creatinine 1.51 Estimat Glomerular Filtration 47 Rate Random Glucose 111 Calcium Level 9.5 Total Bilirubin 0.4 Aspartate Amino Transf 14 (AST/SGOT) Alanine Aminotransferase 21 (ALT/SGPT) Alkaline Phosphatase 64 Total Protein 6.7 Albumin 3.7 Urine Opiates Screen NEG Urine Barbiturates Screen NEG Urine Amphetamines Screen NEG Urine Benzodiazepines Screen NEG Urine Cocaine Screen NEG Urine Cannabinoids Screen NEG Result Diagram: 01/03/17 1035 01/03/17 1035 Assessment and Plan Assessment and Plan 66-year-old male with a past history of schizophrenia, anxiety, depression, HTN , A. fib, HLD who presented for psychiatric evaluation. Hospitalist service was consulted for medical management. Schizoaffective disorder- management per psychiatric team Hypertension: Not well controlled currently. Resume home medications including metoprolol 75 mg twice a day, nifedipine extended release 30 mg daily. Clonidine 0.1 mg 3 times a day when necessary. Monitor BP trend Atrial fibrillation: rate controlled continue aspirin daily metoprolol 75 mg daily CKD stage III with acute dehydration: baseline creatinine appears to be between 1.2-1.3. Creatinine 1.51 on admission. Given 1L IVF in the ED. avoid nephrotoxic agents encourage PO fluid intake Follow-up BMP in the a.m. HLD Continue Lipitor 20 mg daily DVT prophylaxis: Patient ambulatory Discussed Condition With Patient with rehabilitation psychologist at bedside, Dr. Long Medical Decision Making MDM Remarks Patient has no complaints at this time. Will initiate clonidine when necessary for uncontrolled blood pressure. We'll continue monitor blood pressure and further recommendations per trend. For his acute kidney injurystatus post IV fluid hydration in the emergency room, avoid nephrotoxins and repeat BUN and creatinine in the morning. Encourage fluid intake. The exam, history, and the medical decision making described in the above note were completed with the assistance of the dictating practitioner. I reviewed and agree with the findings presented. I attest that I had a face-to face encounter with the patient on the same day and personally performed and documented my assessment and findings in the medical record. Urbano Thibodeaux Jan 03, 2017 16:32 Barbie Long MD Jan 03, 2017 18:04
[2017-01-03] MEDS: ATORVASTATIN 20 MG TAB PO SCH (21:24)
[2017-01-03] MEDS: HALOPERIDOL 10 MG TAB PO SCH (21:24)
[2017-01-03] MEDS: ARIPiprazole 10 MG TAB PO SCH (21:24)
[2017-01-04] MEDS: NIFEdipine 30 MG SUSTAINED RELEASE TAB PO SCH (08:25)
[2017-01-04] MEDS: ASPIRIN EC 81 MG TABEC PO SCH (08:25)
[2017-01-04] MEDS: HALOPERIDOL 10 MG TAB PO SCH ×2 (08:26→21:02)
[2017-01-04] MEDS: BENZTROPINE MESYLATE 1 MG TAB PO SCH (08:26)
[2017-01-04] MEDS: ARIPiprazole 10 MG TAB PO SCH (08:27)
[2017-01-04] MEDS: METOPROLOL TARTRATE 50 MG TAB PO SCH ×2 (09:00→21:01)
[2017-01-04] MEDS ORDERED: METOPROLOL TARTRATE 50 MG TAB PO SCH (09:00)
[2017-01-04 09:11] LABS: BICARBONATE 24.1 MEQ/L (21.0-32.0); POTASSIUM 4.1 MEQ/L (3.5-5.1)
--- NOTE | 2017-01-04 12:38 | HHI.PYPN ---
Subjective Remarks Patient seen in his room with nurse Cliff, chart reviewed. Patient compliant medications. Patient still with marked thought blocking delays in his responses though he denies any auditory hallucinations. We again discussed placement issues. I emphasized the fact that he will need assistance if he is to be returned to his trailer such as home health care. He reluctantly agreed to that. For now will increase Abilify to 15 mg twice a day continue treatment Review of Systems Except as stated in HPI: all other systems reviewed are Neg Objective Alert: Yes [place]: Person, Place, Date Mood: Anxious (somewhat subtly anxious), Calm, Oppositional (vaguely) Affect: Other (decreased range and intensity) Memory Intact: Comment (poor) Hallucinations: Other (denies though appears to be responding to internal stimuli with marked thought blocking) Delusions: Yes Delusion Type: Other (vigilant) Suicidal: Ideation (denies) Homicidal: Ideation (denies) Insight/Judgment Poor Labs Test 01/04/17 08:00 Sodium Level 145 MEQ/L Potassium Level 4.1 MEQ/L Chloride Level 113 MEQ/L Carbon Dioxide Level 24.1 MEQ/L Anion Gap 8 MEQ/L Blood Urea Nitrogen 15 MG/DL Creatinine 1.01 MG/DL Estimat Glomerular Filtration 74 ML/MIN Rate Random Glucose 99 MG/DL Calcium Level 9.0 MG/DL Total Creatine Kinase 66 U/L Vitals/IOs Vital Signs Date Time Temp Pulse Resp B/P Pulse Ox O2 Delivery O2 Flow Rate FiO2 01/03/17 15:00 97.4 90 18 156/97 99 Intake and Output 01/03/17 01/03/17 01/04/17 08:00 16:00 00:00 Intake Total 480 ml Balance 480 ml Assessment & Plan Problem List: (1) Schizoaffective disorder, bipolar type ICD Code: F25.0 Assessment & Plan Estimated LOS: days patient continue somewhat psychotic appears to be responding to internal stimuli. See medication adjustments above Justification for Cont. Inpt. At this time patient will decompensate if placed in the lower level of care Discharge Planning To be determined Request HC Surrog/Guard Advoc?: No Justin Ivy MD Jan 04, 2017 12:38
--- NOTE | 2017-01-04 14:49 | HHI.PR ---
Subjective Remarks Follow up visit on patient with schizophrenia, anxiety, depression, HTN, A. fib and HLD. Patient seen and examined today. Patient complains of swelling right anterior face. No difficulty with breathing, runny nose, headache or tooth pain. Patient also denies any chest pain or abdominal pain. Objective Vitals Vital Signs Date Time Temp Pulse Resp B/P Pulse Ox O2 Delivery O2 Flow Rate FiO2 01/03/17 15:00 97.4 90 18 156/97 99 I/O 01/03/17 01/03/17 01/03/17 01/04/17 01/04/17 01/04/17 07:00 15:00 23:00 07:00 15:00 23:00 Intake Total 480 ml 480 ml Balance 480 ml 480 ml Intake Oral 480 ml 480 ml Result Diagram: 01/03/17 1035 01/04/17 0800 Objective Remarks GENERAL: This is a well-nourished, well-developed patient, in no apparent distress. HEENT: Normocephalic. Pupils equal round and reactive. Airway patent. Noticeable swelling over right maxillary sinus with some erythema of the overlying skin. NTTP. Right eye WNL. Poor dentition with multiple caries present. NECK: Trachea midline. No JVD. Supple. CARDIOVASCULAR: Regular rate and rhythm without murmurs, gallops, or rubs. RESPIRATORY: Clear to auscultation. Breath sounds equal bilaterally. No wheezes , rales, or rhonchi. GASTROINTESTINAL: Abdomen soft, non-tender, nondistended. Bowel Sounds normoactive x4. MUSCULOSKELETAL: Extremities without clubbing, cyanosis, or edema. NEUROLOGICAL: Awake and alert. Flat affect. No focal neuro deficit. MANUEL. Normal speech. Medications and IVs Current Medications Medications (Trade) Dose Ordered Sig/Mesha Route Start Time Stop Time Status Last Admin (Benadryl) 50 mg HS PRN PO 01/03/17 15:15 (Tylenol) 650 mg Q4H PRN PO 01/03/17 15:15 (Atarax) 50 mg Q6H PRN PO 01/03/17 15:15 (Ecotrin Ec) 81 mg DAILY PO 01/04/17 09:00 01/04/17 08:25 (Lipitor) 20 mg HS PO 01/03/17 21:00 01/03/17 21:24 (Cogentin) 1 mg DAILY PO 01/04/17 09:00 01/04/17 08:26 (Haldol) 10 mg BID PO 01/03/17 21:00 01/04/17 08:26 (Procardia Xl) 30 mg DAILY PO 01/04/17 09:00 01/04/17 08:25 (Desyrel) 50 mg HS PRN PO 01/03/17 15:15 (Pill Splitter) 1 ea UNSCH PRN OTHER 01/03/17 15:30 (Ativan) 1 mg Q6H PRN PO 01/03/17 15:30 (Ativan Inj) 1 mg Q6H PRN IM 01/03/17 15:30 (Catapres) 0.1 mg Q6H PRN PO 01/03/17 16:30 (Lopressor) 75 mg BID PO 01/04/17 09:00 01/04/17 09:00 (Abilify) 15 mg BID PO 01/04/17 21:00 A/P Assessment and Plan 66-year-old male with a past history of schizophrenia, anxiety, depression, HTN , A. fib, HLD who presented for psychiatric evaluation. Hospitalist service was consulted for medical management. Schizoaffective disorder- management per psychiatric team Hypertension: Not well controlled currently. Lopressor dose increased to BID today. Continue with home dose of nifedipine extended release 30 mg daily. Clonidine 0.1 mg 3 times a day when necessary. Monitor BP trend Right sided facial swelling Concern for possible infection CT ordered for further evaluation Follow up on results Atrial fibrillation: rate controlled continue aspirin daily metoprolol 75 mg BID CKD stage III with acute dehydration: baseline creatinine appears to be between 1.2-1.3. Creatinine 1.51 on admission. Given 1L IVF in the ED. avoid nephrotoxic agents encourage PO fluid intake Follow-up BMP shows creatinine of 1.01 HLD Continue Lipitor 20 mg daily DVT prophylaxis: Patient ambulatory Discussed with patient and nursing staff Written by ALEX Castillo acting as scribe for Dr. Coker on 01/04/17 at 14:47. All or portions of this note were transcribed by scribe Hyacinth Esteban PA-C. I, Dr. Matias Coker personally performed the history, physical exam, and medical decision making; and confirmed the accuracy of the information in the transcribed note. Authenticated by Dr. Matias Coker on 01/04/17 at 16:51. Hyacinth Esteban Jan 04, 2017 14:49 Matias Coker MD Jan 04, 2017 16:51
[2017-01-04 19:00] VITALS: BP 155/77; PULSE 62; RESP 18; TEMP 99; O2SAT 96
[2017-01-04] MEDS: ATORVASTATIN 20 MG TAB PO SCH (21:01)
[2017-01-04] MEDS: ARIPiprazole 15 MG TAB PO SCH (21:02)
[2017-01-05] MEDS: LORazepam 1 MG TAB PO PRN (02:18)
[2017-01-05] MEDS: diphenhydrAMINE HCL 50 MG CAP PO PRN (02:18)
[2017-01-05 05:40] VITALS: BP 122/72; PULSE 78; RESP 18; TEMP 97.6; O2SAT 95
[2017-01-05] MEDS: ASPIRIN EC 81 MG TABEC PO SCH (08:59)
[2017-01-05] MEDS: NIFEdipine 30 MG SUSTAINED RELEASE TAB PO SCH (08:59)
[2017-01-05] MEDS: ARIPiprazole 15 MG TAB PO SCH ×2 (09:00→21:26)
[2017-01-05] MEDS: HALOPERIDOL 10 MG TAB PO SCH ×2 (09:02→21:26)
[2017-01-05] MEDS: BENZTROPINE MESYLATE 1 MG TAB PO SCH (09:02)
[2017-01-05] MEDS: METOPROLOL TARTRATE 50 MG TAB PO SCH ×2 (09:05→21:25)
--- NOTE | 2017-01-05 15:50 | HHI.PYPN ---
Subjective Remarks Patient was seen and case discussed with nursing. Patient is guarded and mildly irritable during the interview. His compliant with his medications. Nursing sees him staring off into space. Denies suicidal ideation intent or plan. Objective Alert: Yes [place]: Person, Place, Date Mood: Depressed, Oppositional (vaguely) Affect: Other (decreased range and intensity) Memory Intact: Comment (poor) Hallucinations: Other (denies though appears to be responding to internal stimuli with marked thought blocking) Delusions: Yes Delusion Type: Other (none elicited today) Suicidal: Ideation (denies) Homicidal: Ideation (denies) Insight/Judgment Poor Vitals/IOs Vital Signs Date Time Temp Pulse Resp B/P Pulse Ox O2 Delivery O2 Flow Rate FiO2 01/05/17 05:40 97.6 78 18 122/72 95 Intake and Output 01/04/17 01/04/17 01/05/17 08:00 16:00 00:00 Intake Total 240 ml 240 ml Balance 240 ml 240 ml Assessment & Plan Problem List: (1) Schizoaffective disorder, bipolar type ICD Code: F25.0 Assessment & Plan Continue current treatment plan Justification for Cont. Inpt. Patient will decompensate in a less restrictive setting Request HC Surrog/Guard Advoc?: No Kurt Garcia DO Jan 05, 2017 15:50
[2017-01-05 19:20] VITALS: BP 119/84; PULSE 96; RESP 20; TEMP 98.1; O2SAT 96
[2017-01-05] MEDS: ATORVASTATIN 20 MG TAB PO SCH (21:26)
[2017-01-06] VITALS: BP 125/82; PULSE 77; RESP 18; TEMP 97.3; O2SAT 99
[2017-01-06] MEDS: diphenhydrAMINE HCL 50 MG CAP PO PRN ×2 (01:30→20:57)
[2017-01-06] MEDS: LORazepam 1 MG TAB PO PRN ×2 (01:30→20:57)
[2017-01-06 06:12] VITALS: BP 142/74; PULSE 67; RESP 16; TEMP 98.2; O2SAT 98
[2017-01-06] MEDS: BENZTROPINE MESYLATE 1 MG TAB PO SCH (08:53)
[2017-01-06] MEDS: ARIPiprazole 15 MG TAB PO SCH ×2 (08:53→20:56)
[2017-01-06] MEDS: NIFEdipine 30 MG SUSTAINED RELEASE TAB PO SCH (08:53)
[2017-01-06] MEDS: METOPROLOL TARTRATE 50 MG TAB PO SCH ×2 (08:53→20:57)
[2017-01-06] MEDS: ASPIRIN EC 81 MG TABEC PO SCH (08:54)
[2017-01-06] MEDS: HALOPERIDOL 10 MG TAB PO SCH ×2 (08:54→20:57)
--- NOTE | 2017-01-06 09:36 | RADRPT ---
EXAM DATE/TIME: 01/06/2017 08:55 [facility] COMPARISON: CT BRAIN W/O CONTRAST, June 14, 2015, 11:27. INDICATIONS : Swelling over right maxillary area. Evaluate for sinus infection. RADIATION DOSE: 9.21 CTDIvol (mGy) MEDICAL HISTORY : Hypertension. Chronic obstructive pulmonary disease. Diabetes. SURGICAL HISTORY : None. ENCOUNTER: Initial ACUITY: 3 days PAIN SCORE: 0/10 LOCATION: Right facial TECHNIQUE: Volumetric scanning of the paranasal sinuses was performed. Using automated exposure control and adjustment of the mA and/or kV according to patient size, radiation dose was kept as low as reasonably achievable to obtain optimal diagnostic quality images. FINDINGS: MAXILLARY SINUSES: There is bilateral, right greater than left mucoperiosteal thickening with muc us retention cysts identified within the dependent portion of the sinuses bilaterally. The patient's molars appear to project into the maxillary sinuses bilaterally and may represent the source of infec tion. The osteomeatal units are obscured bilaterally by mucoperiosteal thickening. ETHMOID SINUSES: Normal. No significant mucosal thickening or fluid. Fovea ethmoidal and lamina papyracea are symmetric and intact. SPHENOID SINUSES: Normal. No significant mucosal thickening or fluid. Sphenoethmoidal recesses are patent. No bony dehiscence. FRONTAL SINUSES: Normal. No significant mucosal thickening or fluid. Frontal recesses are paten t. No anomalous frontal air cells. NASAL FOSSA: Normal. No septal perforation or deviation. No dorothy bullosa or paradoxical turbina bridger are identified. OTHER: There appears to be cerumen identified within the bilateral external auditory canals. Yun ited views of the skull base and orbits are unremarkable. No abnormalities are seen within the soft tissues. CONCLUSION: Bilateral maxillary sinus disease. The patient's posterior molars appear to project i nto the maxillary sinuses bilaterally and may represent the source of the infection. The soft tissues are normal. Fatimah Gordillo MD on January 06, 2017 at 9:27 Board Certified Radiologist. This report was verified electronically.
--- NOTE | 2017-01-06 11:50 | HHI.PR ---
Subjective Remarks At the margin of the bed. Says she feels good. No chest pain, sob, n/v/d/c. Says he is eating well. No complaints. at this time. Objective Vitals Vital Signs Date Time Temp Pulse Resp B/P Pulse Ox O2 Delivery O2 Flow Rate FiO2 01/06/17 06:12 98.2 67 16 142/74 98 01/06/17 00:00 97.3 77 18 125/82 99 01/05/17 19:20 98.1 96 20 119/84 96 Result Diagram: 01/03/17 1035 01/04/17 0800 Imaging Last Impressions Sinuses CT 01/06/17 0000 Signed Impressions: Service Date/Time: Friday, January 06, 2017 08:55 - CONCLUSION: Bilateral maxillary sinus disease. The patient's posterior molars appear to project into the maxillary sinuses bilaterally and may represent the source of the infection. The soft tissues are normal. Fatimah Gordillo MD Objective Remarks GENERAL: This is a well-nourished, well-developed patient, in no apparent distress. HEENT: Normocephalic. Pupils equal round and reactive. Airway patent. Noticeable swelling over right maxillary sinus with some erythema of the overlying skin. NTTP. Right eye WNL. Poor dentition with multiple caries present. NECK: Trachea midline. No JVD. Supple. CARDIOVASCULAR: Regular rate and rhythm without murmurs, gallops, or rubs. RESPIRATORY: Clear to auscultation. Breath sounds equal bilaterally. No wheezes , rales, or rhonchi. GASTROINTESTINAL: Abdomen soft, non-tender, nondistended. Bowel Sounds normoactive x4. MUSCULOSKELETAL: Extremities without clubbing, cyanosis, or edema. NEUROLOGICAL: Awake and alert. Flat affect. No focal neuro deficit. MANUEL. Normal speech. A/P Assessment and Plan 66-year-old male with a past history of schizophrenia, anxiety, depression, HTN , A. fib, HLD who presented for psychiatric evaluation. Hospitalist service was consulted for medical management. Schizoaffective disorder- management per psychiatric team Hypertension: Not well controlled currently. Lopressor dose increased to BID. Continue with home dose of nifedipine extended release 30 mg daily. BP is better controlled. Clonidine 0.1 mg 3 times a day when necessary. Monitor BP trend Right sided facial swelling Concern for possible infection CT ordered for further evaluation Follow up on results Atrial fibrillation: rate controlled continue aspirin daily metoprolol 75 mg BID CKD stage III with acute dehydration: baseline creatinine appears to be between 1.2-1.3. Creatinine 1.51 on admission. Given 1L IVF in the ED. avoid nephrotoxic agents encourage PO fluid intake Follow-up BMP shows creatinine of 1.01 HLD Continue Lipitor 20 mg daily DVT prophylaxis: Patient ambulatory Discussed with patient and nurse Stable, will sign off. Reconsult as need. Eryn Robbins MD Jan 06, 2017 11:50
--- NOTE | 2017-01-06 17:58 | HHI.PYPN ---
Subjective Remarks Patient was seen and case discussed with nursing. Patient remains blunted and intrusive and attention seeking. His difficulty getting his thoughts out. Is largely disorganized. Mood is "okay." Says he is depressed. Denies suicidal ideation intent or plan Objective Alert: Yes [place]: Person, Place, Date Mood: Depressed, Oppositional (vaguely) Affect: Labile Memory Intact: Comment (poor) Hallucinations: Other (denies though appears to be responding to internal stimuli with marked thought blocking) Delusions: Yes Delusion Type: Other (none elicited today) Suicidal: Ideation (denies) Homicidal: Ideation (denies) Insight/Judgment Poor Vitals/IOs Vital Signs Date Time Temp Pulse Resp B/P Pulse Ox O2 Delivery O2 Flow Rate FiO2 01/06/17 06:12 98.2 67 16 142/74 98 Assessment & Plan Problem List: (1) Schizoaffective disorder, bipolar type ICD Code: F25.0 Assessment & Plan Continue current treatment plan Justification for Cont. Inpt. Patient will decompensate in a less restrictive setting Request HC Surrog/Guard Advoc?: No Kurt Garcia DO Jan 06, 2017 17:58
[2017-01-06 19:46] VITALS: BP 123/70; PULSE 89; RESP 18; TEMP 97.6; O2SAT 97
[2017-01-06] MEDS: ATORVASTATIN 20 MG TAB PO SCH (20:56)
[2017-01-07 03:00] VITALS: BP 119/68; PULSE 58
[2017-01-07 03:36] VITALS: BP 119/68; PULSE 58; RESP 18; TEMP 98.3; O2SAT 97
[2017-01-07 06:00] VITALS: BP 110/63; PULSE 90; RESP 18; TEMP 97.6; O2SAT 98
[2017-01-07 06:08] VITALS: BP 119/68; PULSE 58; RESP 18; TEMP 98.3; O2SAT 99
[2017-01-07] MEDS: NIFEdipine 30 MG SUSTAINED RELEASE TAB PO SCH (08:27)
[2017-01-07] MEDS: HALOPERIDOL 10 MG TAB PO SCH ×2 (08:27→20:10)
[2017-01-07] MEDS: BENZTROPINE MESYLATE 1 MG TAB PO SCH (08:27)
[2017-01-07] MEDS: METOPROLOL TARTRATE 50 MG TAB PO SCH ×2 (08:27→20:10)
[2017-01-07] MEDS: ARIPiprazole 15 MG TAB PO SCH ×2 (08:27→20:10)
[2017-01-07] MEDS: ASPIRIN EC 81 MG TABEC PO SCH (08:27)
--- NOTE | 2017-01-07 15:52 | HHI.PYPN ---
Subjective Remarks Patient discussed with treatment team, chart reviewed, patient seen on unit. Patient up in [address] appears somewhat more alert than when questioned about placement issues he again shows poor eye contact with marked delay though the responses are fairly well goal oriented continue to discuss discharge plans return home with home health care versus state hospital. Patient appears reluctant to agree to home health care but appears to be considering it Review of Systems Except as stated in HPI: all other systems reviewed are Neg Objective Alert: Yes [place]: Person, Place, Date Mood: Depressed, Oppositional (vaguely) Affect: Labile Memory Intact: Comment (poor) Hallucinations: Other (denies though appears to be responding to internal stimuli with marked thought blocking) Delusions: Yes Delusion Type: Other (none elicited today) Suicidal: Ideation (denies) Homicidal: Ideation (denies) Insight/Judgment Poor Vitals/IOs Vital Signs Date Time Temp Pulse Resp B/P Pulse Ox O2 Delivery O2 Flow Rate FiO2 01/07/17 06:08 98.3 58 18 119/68 99 Assessment & Plan Problem List: (1) Schizoaffective disorder, bipolar type ICD Code: F25.0 Assessment & Plan Estimated LOS: days patient continue psychotic with marked thought blocking. The responses while delayed are at times goal oriented continue to work with placement issues Justification for Cont. Inpt. At this time patient will decompensate if placed in a lower level of care Discharge Planning To be determined Request HC Surrog/Guard Advoc?: Justin Thomason MD Jan 07, 2017 15:52
[2017-01-07] MEDS: LORazepam 1 MG TAB PO PRN (20:10)
[2017-01-07] MEDS: ATORVASTATIN 20 MG TAB PO SCH (20:10)
[2017-01-07] MEDS: diphenhydrAMINE HCL 50 MG CAP PO PRN (20:10)
[2017-01-08 05:15] VITALS: BP 130/77; PULSE 80; RESP 18; TEMP 97.3; O2SAT 96
[2017-01-08] MEDS: NIFEdipine 30 MG SUSTAINED RELEASE TAB PO SCH (09:45)
[2017-01-08] MEDS: ARIPiprazole 15 MG TAB PO SCH ×2 (09:46→20:44)
[2017-01-08] MEDS: HALOPERIDOL 10 MG TAB PO SCH ×2 (09:46→20:43)
[2017-01-08] MEDS: ASPIRIN EC 81 MG TABEC PO SCH (09:46)
[2017-01-08] MEDS: BENZTROPINE MESYLATE 1 MG TAB PO SCH (09:46)
[2017-01-08] MEDS: METOPROLOL TARTRATE 50 MG TAB PO SCH ×2 (09:46→20:44)
--- NOTE | 2017-01-08 12:10 | HHI.PYPN ---
Subjective Remarks Patient seen in [place] with floor staff, patient now states she is willing to return home with home health care. The delayed responses continue though his responses are fairly well goal oriented when given. He denies suicidality of voices at the present time for now continue treatment consider discharge 1-2 days Review of Systems Except as stated in HPI: all other systems reviewed are Neg Objective Alert: Yes [place]: Person, Place, Date Mood: Depressed, Oppositional (vaguely) Affect: Labile Memory Intact: Comment (poor) Hallucinations: Other (denies though appears to be responding to internal stimuli with marked thought blocking) Delusions: Yes Delusion Type: Other (none elicited today) Suicidal: Ideation (denies) Homicidal: Ideation (denies) Insight/Judgment Poor Vitals/IOs Vital Signs Date Time Temp Pulse Resp B/P Pulse Ox O2 Delivery O2 Flow Rate FiO2 01/08/17 05:15 97.3 80 18 130/77 96 Intake and Output 01/07/17 01/07/17 01/08/17 08:00 16:00 00:00 Intake Total 120 ml 240 ml Balance 120 ml 240 ml Assessment & Plan Problem List: (1) Schizoaffective disorder, bipolar type ICD Code: F25.0 Assessment & Plan Estimated LOS: days patient showing some slight increase insight, consistency with his responses. "There is still significant thought blocking. For now continue treatment consider discharge 102 days if his responses remain consistent Justification for Cont. Inpt. At this time patient will decompensate of placed on the lower level of care Discharge Planning To be determined Request HC Surrog/Guard Advoc?: No Justin Ivy MD Jan 08, 2017 12:10
[2017-01-08] MEDS: ATORVASTATIN 20 MG TAB PO SCH (20:43)
[2017-01-08 21:22] VITALS: BP 130/60; PULSE 82; RESP 18
[2017-01-08 21:26] VITALS: O2SAT 98
[2017-01-09] MEDS: LORazepam 1 MG TAB PO PRN (00:44)
[2017-01-09] MEDS: diphenhydrAMINE HCL 50 MG CAP PO PRN (00:44)
[2017-01-09 05:12] VITALS: BP 104/69; PULSE 79; RESP 18; TEMP 97.4; O2SAT 96
[2017-01-09] MEDS: ARIPiprazole 15 MG TAB PO SCH (08:35)
[2017-01-09] MEDS: ASPIRIN EC 81 MG TABEC PO SCH (08:35)
[2017-01-09] MEDS: HALOPERIDOL 10 MG TAB PO SCH (08:35)
[2017-01-09] MEDS: METOPROLOL TARTRATE 50 MG TAB PO SCH (08:40)
[2017-01-09] MEDS: BENZTROPINE MESYLATE 1 MG TAB PO SCH (08:40)
[2017-01-09] MEDS: NIFEdipine 30 MG SUSTAINED RELEASE TAB PO SCH (08:41)
[2017-01-09] MEDS ORDERED: TRAZ50TA12 PO (10:22)
[2017-01-09] MEDS ORDERED: BENZ1TAB PO (10:22)
[2017-01-09] MEDS ORDERED: METO-309 PO (10:22)
[2017-01-09] MEDS ORDERED: ARIP1TAB13 PO (10:22)
[2017-01-09] MEDS ORDERED: ASPI81TA11 PO (10:22)
[2017-01-09] MEDS ORDERED: ATOR20TA15 PO (10:22)
[2017-01-09] MEDS ORDERED: HALO10TA PO (10:22)
[2017-01-09] MEDS ORDERED: NIFE30TA8 PO (10:22)
--- NOTE | 2017-01-09 11:15 | HHI.DS ---
Psychiatry Discharge Summary Inpatient Psychiatric care?: Yes Advance Directive: No Reason Not Provided: refused Mental Health AdvanceDirective: No Health Care Proxy: No Admission Admission Date Jan 03, 2017 at 13:54 Admission Diagnosis: (1) Schizoaffective disorder, bipolar type ICD Code: F25.0 Brief History Patient is a 66-year-old white male well-known to me from multiple prior contacts and hospitalization was discharged from the inpatient unit yesterday after a stay from 11/30/16 to 01/02/17 . He reluctantly agreed to placement and an [facility], [facility]. The treatment team and I felt he was not able to live independently in his trailer even with the assistance of a neighbor. He did disagree with this but accepted our decision. However once he was placed at [facility] he made multiple attempts to leave their walking to the front door attempting to open it hearing his possessions with them. This caused much consternation with the staff there relating to them returning him to the [facility] ED and our psych screeners. He agreed to a voluntary admission to the psychiatric unit for further care. Patient seen by me on 2600 unit a look at me though somewhat anxious nervous gaze. Saying "it didn't work out" and I want to go to my home. I did discuss with them the alternatives of perhaps considering someway Elly returned to his trailer with home health care and appropriate monitoring. He showed some irritability when suggesting this though the other only option would appear to be a referral to the [facility] hospital. Patient then nodded agreement. At this time we'll continue him on a voluntary basis will be restarting his medications that he had through the med reconciliation. We'll continue the hospitalist consultation also. We'll talk with the counselors tomorrow attempt to make this a brief stay to perhaps look at resources to keep her mental trailer Tobacco Use In Past 30 Days: Cigarettes But Not Daily Alcohol Use: Never Hospital Course Patient's hospital course was uneventful, is trial in the [facility] was reflective of his desire to return to his own home. In the hospital patient has been calm cooperative compliant with his medications. He remains with marked delays in his responses as if responding to internal stimuli, though he denies voices. And his responses when they do occur are fairly well goal oriented. He denies suicidality homicidality. We did discuss alternatives. Patient is willing to accept home health care with psychiatric nurse in medication management if he is allowed to return to his home. This time he is reached maximum benefit of this hospitalization. He will be discharged today to his home with referral to home health care for follow-up and also Mark bruno. He has been advised of his need for cooperation compliance with the visiting nurse. And compliance with his medication. Results Blood Pressure 104 / 69 Vital Signs Date Time Temp Pulse Resp B/P Pulse Ox O2 Delivery O2 Flow Rate FiO2 01/09/17 05:12 97.4 79 18 104/69 96 Urine toxicology negative Summary of Procedures None done Imaging Last Impressions Sinuses CT 01/06/17 0000 Signed Impressions: Service Date/Time: Friday, January 06, 2017 08:55 - CONCLUSION: Bilateral maxillary sinus disease. The patient's posterior molars appear to project into the maxillary sinuses bilaterally and may represent the source of the infection. The soft tissues are normal. Fatimah Gordillo MD Pending results at discharge: No Medications # of Antipsychotic meds at D/C: 2 Appropriate >1 Antipsych meds?: 1 Approp Antipsych med options 1 - Minimum of three failed multiple trials of monotherapy. 2 - Documented plan to taper to monotherapy due to previous use of multiple meds OR cross-taper in progress at D/C. 3 - Documentation of augmentation of Clozapine. 4 - Justification other than those listed in allowable values 1-3, document here : Discharge Discharge Date: Jan 09, 2017 Discharge Diagnosis: (1) Schizoaffective disorder, bipolar type Diagnosis: Principal ICD Code: F25.0 Mental Status Exam at Disch Alert oriented white male somewhat guarded and vigilant, he is otherwise normal active, mood is euthymic to somewhat restricted, affect showed decreased range and intensity. Speech regular quite slow there is thought blocking noted though it is fairly well goal oriented, then auditory or visual hallucinations noted no delusions noted incidentally judgment is poor cognition grossly intact Pt Condition on Discharge: Stable Discharge Disposition: Discharge Home Discharge Instructions Diet Instructions: As Tolerated, No Restrictions Activities you can perform: Regular-No Restrictions Scheduled Appointment: Mark Bruno (and also refer to home health care ) Discharge Time > 30 minutes Discharge/Advance Care Plan Health Problems: (1) Schizoaffective disorder, bipolar type Goals to promote your health * To prevent worsening of your condition and complications * To maintain your health at the optimal level Directions to meet your goals Take your medications as prescribed Follow your dietary instruction Follow activity as directed Keep your appointments as scheduled Take your immunizations and boosters as scheduled If your symptoms worsen call your PCP, if no PCP go to Urgent Care Center or Emergency Room For 22/04 questions related to your inpatient stay or results of tests pending at discharge, please contact Dr. Justin Ivy at Smoking is Dangerous to Your Health. Avoid second hand smoking Justin Ivy MD Jan 09, 2017 11:15
== END 2017-01-09 15:00 | disposition home or self-care (01) | DRG 885 ==
LOC: NEPC 09:49 → NEDA 13:54 → H260 15:00
PROVIDERS: ADMIT Psychiatry & Neurology Psychiatry; ATTEND Psychiatry & Neurology Psychiatry
DX: F25.0 Schizoaffective disorder, bipolar type (principal); N17.9 Acute kidney failure, unspecified; I48.91 Unspecified atrial fibrillation; E86.0 Dehydration; F41.9 Anxiety disorder, unspecified; E78.5 Hyperlipidemia, unspecified; I12.9 Hypertensive chronic kidney disease with stage 1 through stage 4 chronic kidney disease, or unspecified chronic kidney disease; N18.3 Chronic kidney disease, stage 3 (moderate); G47.00 Insomnia, unspecified
CPT/HCPCS: 70486; 80048; 80053; 80307; 82550; 85025; 96360; J7030; Q0163

== ENCOUNTER 2017-01-15 19:50 | Inpatient (IN) | payer OTHER, MEDICARE ==
[~2017-01-15] VITALS: Ht 177.8 cm; Wt 78.2 kg
[~2017-01-15 19:50] MED LIST changes: -ABIL2TAB2 PO; +ARIP1TAB13 PO; +ASPI81TA11 PO; +ATOR20TA15 PO; -Aspirin Chew PO; -CLON0.1T PO; -METO50TA PO
[2017-01-15 19:52] VITALS: BP 140/98; PULSE 125; RESP 18; TEMP 98.5; O2SAT 99
[2017-01-16] VITALS (12 sets, daily range): BP systolic 123–179; BP diastolic 67–107; PULSE 81–102; RESP 15–20; TEMP 97.3–98.2; O2SAT 90–99
--- NOTE | 2017-01-16 02:27 | RADRPT ---
EXAM DATE/TIME: 01/16/2017 02:11 [facility] COMPARISON: CHEST SINGLE AP, June 14, 2015, 9:20. INDICATIONS : Shortness of breath. MEDICAL HISTORY : Hypertension. Chronic obstructive pulmonary disease. Diabetes SURGICAL HISTORY : None. ENCOUNTER: Initial ACUITY: 1 day PAIN SCORE: 2/10 LOCATION: Bilateral chest FINDINGS: A single view of the chest demonstrates the lungs to be symmetrically aerated without evidence of mas s, infiltrate or effusion. The cardiomediastinal contours are unremarkable. Osseous structures are intact. CONCLUSION: Normal examination. Del Mace MD on January 16, 2017 at 2:26 Board Certified Radiologist. This report was verified electronically.
--- NOTE | 2017-01-16 02:33 | PD ---
HPI Chief Complaint: Altered Mental Status Time Seen by Provider: 01:20 Travel History International Travel<30 days: No Contact w/Intl Traveler<30days: No Traveled to known affect area: No History of Present Illness HPI The patient is a 66 year old male who presents to the [facility] emergency department with a history of being brought in for evaluation for medical clearance from the [facility]. The patient is an extremely poor historian. The patient has difficulty providing the information about exactly why he is here in the emergency department. The patient reports that "I was not in reality today". He reports that he was picked up for trespassing by the police. However, when the [facility] is called by the patient's nurse they report that the patient was checked on by his continuous pillowcase cutter/nuisance wildlife trapper today at his trailer and was noted to be lethargic. The patient reportedly had not been eating or drinking. The patient's food in his house was moldy. The patient was brought to the [facility] for evaluation and they also agreed that he was altered compared to his normal baseline with his history of psychiatric disorder, therefore they sent him to the emergency department for evaluation. The patient reports that he has not been taking his psychiatric medications, however he has been taking his blood pressure medicine. The patient reports that he quit smoking 6 months ago, however his continuous pillowcase cutter reports that he continues to smoke 3 packs of cigarettes per day. The patient denies any recent fevers, cough, congestion, neck pain, chest pain, shortness of breath, abdominal pain, vomiting, diarrhea, urinary symptoms, or neurologic symptoms other than generalized weakness. [facility] Past Medical History Narrative Medical The patient's past medical history is significant for schizophrenia, anxiety and depression, hypertension, atrial fibrillation, hyperlipidemia. Asthma: No Atrial Fibrillation: Yes Blood Disorders: No Bipolar Disorder: Yes Anxiety: Yes Depression: Yes Heart Rhythm Problems: Yes Cardiovascular Problems: Yes (AFIB, HYPERTENSION) Chemotherapy: No Chest Pain: No Congestive Heart Failure: No COPD: Yes Cerebrovascular Accident: No Diminished Hearing: No Glaucoma: No Hypertension: Yes Musculoskeletal: No Psychiatric: Yes (Schizoaffective Disorder) Respiratory: Yes Immunizations Current: No Myocardial Infarction: No Radiation Therapy: No Schizophrenia: Yes (SCHIZO AFFECTIVE DISORDER) Sickle Cell Disease: No Sleep Apnea: No Influenza Vaccination: Yes Past Surgical History Narrative Surgical The patient's past surgical history is significant for an eye surgery. AICD: No Ear Surgery: No Eye Surgery: Yes (R EYE LASER SURGERY) Genitourinary Surgery: No Gynecologic Surgery: No Joint Replacement: No Oral Surgery: No Pacemaker: No Other Surgery: Yes (UNKNOWN SEE JPOD NOTES) Social History Alcohol Use: No Tobacco Use: Yes (3 PACKS A DAY ) Substance Use: No Allergies-Medications (Allergen,Severity, Reaction): Coded Allergies: No Known Allergies (Verified , 01/16/17) Per pt. Reported Meds & Prescriptions Reported Meds & Active Scripts Active Atorvastatin (Atorvastatin Calcium) 20 Mg Tab 20 Mg PO HS Aripiprazole 15 Mg Tab 15 Mg PO BID Trazodone (Trazodone HCl) 50 Mg Tab 50 Mg PO HS PRN Nifedipine ER 24 HR (Nifedipine) 30 Mg Tab 30 Mg PO DAILY Lopressor (Metoprolol Tartrate) 50 Mg Tab 75 Mg PO 1 1/2 PO BID Haloperidol 10 Mg Tab 10 Mg PO BID Benztropine (Benztropine Mesylate) 1 Mg Tab 1 Mg PO DAILY Lipitor (Atorvastatin Calcium) 20 Mg Tab 20 Mg PO HS Aspirin 81 Mg Tabdr 81 Mg PO DAILY Review of Systems Except as stated in HPI: all other systems reviewed are Neg General / Constitutional: No: Fever Eyes: No: Visual changes HENT: No: Headaches Cardiovascular: No: Chest Pain or Discomfort Respiratory: No: Shortness of Breath Gastrointestinal: Positive: Loss of Appetite, No: Nausea, Vomiting, Diarrhea, Abdominal Pain Genitourinary: No: Urgency, Frequency, Dysuria, Flank Pain Musculoskeletal: No: Pain Skin: No Rash Neurologic: Positive: Weakness (generalized weakness), Change in Mentation, No : Focal Abnormalities, Slurred Speech, Sensory Disturbance Psychiatric: No: Depression Endocrine: No: Polydipsia Hematologic/Lymphatic: No: Easy Bruising Physical Exam Narrative General: The patient is a well-developed well-nourished male in no acute distress Head and Neck exam: Head is normocephalic atraumatic. Eyes: EOMI, pupils are equal round and reactive to light. Nose: Midline septum with pink mucous membranes Mouth: Dentition unremarkable. Moist mucus membranes. Posterior oropharynx is not erythematous. No tonsillar hypertrophy. Uvula midline. Airway patent. Neck: No palpable lymphadenopathy. No nuchal rigidity. No thyromegaly. Cardiovascular: Irregularly irregular with rate control consistent with his history of atrial fibrillation without murmurs, gallops, or rubs. Lungs: Clear to auscultation bilaterally. No wheezes, rhonchi, or rales. Abdomen: Soft, with reported discomfort on palpation of the midepigastric area, no other tenderness on palpation of the other quadrants of the abdomen. No guarding, rebound, or rigidity. Negative [place] sign. Normal bowel sounds are audible. No tenderness on palpation of McBurney's point. Extremities: No clubbing, cyanosis, or edema. 2+ pulses in all 4 extremities. No calf tenderness on palpation. Back: No costovertebral angle tenderness to palpation. Neurologic Exam: Cranial nerves 2-12 were intact on exam. Strength is 5/5 in all 4 extremities. No sensory deficits noted. Skin Exam: No rash noted. Intact skin that is warm and dry. Data Data Last Documented VS Vital Signs Date Time Temp Pulse Resp B/P Pulse Ox O2 Delivery O2 Flow Rate FiO2 01/16/17 02:09 96 Room Air 01/16/17 01:44 97.3 81 18 158/88 Orders Electrocardiogram (01/16/17 02:04) Complete Blood Count With Diff (01/16/17 02:04) Comprehensive Metabolic Panel (01/16/17 02:04) Lipase (01/16/17 02:04) Urinalysis - C+S If Indicated (01/16/17 02:04) Magnesium (Mg) (01/16/17 02:04) Thyroid Stimulating Hormone (01/16/17 02:04) Chest, Single Ap (01/16/17 02:04) Ct Brain W/O Iv Contrast(Rout) (01/16/17 02:04) Iv Access Insert/Monitor (01/16/17 02:04) Ecg Monitoring (01/16/17 02:04) Oximetry (01/16/17 02:04) Blood Glucose (01/16/17 02:04) Drug Screen, Random Urine (01/16/17 02:04) Alcohol (Ethanol) (01/16/17 02:04) Creatine Kinase (Cpk) (01/16/17 02:04) Ckmb (Isoenzyme) Profile (01/16/17 02:04) Troponin I (01/16/17 02:04) B-Type Natriuretic Peptide (01/16/17 02:04) CKMB (01/16/17 02:10) CKMB% (01/16/17 02:10) Sodium Chlor 0.9% 1000 Ml Inj (Ns 1000 M (01/16/17 04:15) Aspirin Chew (Aspirin Chew) (01/16/17 09:00) Nitroglycerin 2% Oint (Nitroglycerin 2% (01/16/17 04:15) Lactulose Liq (Lactulose Liq) (01/16/17 04:15) Admit Order (Ed Use Only) (01/16/17 04:08) Labs Laboratory Tests Test 01/16/17 02:10 White Blood Count 9.0 TH/MM3 Red Blood Count 4.95 MIL/MM3 Hemoglobin 14.4 GM/DL Hematocrit 43.7 % Mean Corpuscular Volume 88.3 FL Mean Corpuscular Hemoglobin 29.0 PG Mean Corpuscular Hemoglobin 32.9 % Concent Red Cell Distribution Width 14.6 % Platelet Count 139 TH/MM3 Mean Platelet Volume 11.1 FL Neutrophils (%) (Auto) 73.4 % Lymphocytes (%) (Auto) 16.6 % Monocytes (%) (Auto) 9.4 % Eosinophils (%) (Auto) 0.3 % Basophils (%) (Auto) 0.3 % Neutrophils # (Auto) 6.6 TH/MM3 Lymphocytes # (Auto) 1.5 TH/MM3 Monocytes # (Auto) 0.8 TH/MM3 Eosinophils # (Auto) 0.0 TH/MM3 Basophils # (Auto) 0.0 TH/MM3 CBC Comment DIFF FINAL Differential Comment Sodium Level 141 MEQ/L Potassium Level 3.6 MEQ/L Chloride Level 107 MEQ/L Carbon Dioxide Level 24.1 MEQ/L Anion Gap 10 MEQ/L Blood Urea Nitrogen 49 MG/DL Creatinine 1.98 MG/DL Estimat Glomerular Filtration 34 ML/MIN Rate Random Glucose 102 MG/DL Calcium Level 8.9 MG/DL Magnesium Level 2.8 MG/DL Total Bilirubin 1.7 MG/DL Aspartate Amino Transf 351 U/L (AST/SGOT) Alanine Aminotransferase 1144 U/L (ALT/SGPT) Alkaline Phosphatase 87 U/L Total Creatine Kinase 1420 U/L Creatine Kinase MB 19.1 NG/ML Creatine Kinase MB % 1.3 % Troponin I 0.14 NG/ML B-Type Natriuretic Peptide 142 PG/ML Total Protein 6.5 GM/DL Albumin 3.6 GM/DL Lipase 128 U/L Thyroid Stimulating Hormone 3.600 uIU/ML 3rd Gen Ethyl Alcohol Level LESS THAN 3 MG/DL MDM Medical Decision Making Medical Screen Exam Complete: Yes Emergency Medical Condition: Yes Medical Record Reviewed: Yes Interpretation(s) Last Impressions Head CT 01/16/17203 Signed Impressions: Service Date/Time: Monday, January 16, 2017 03:08 - CONCLUSION: Normal examination. Del Mace MD Chest X-Ray 01/16/17203 Signed Impressions: Service Date/Time: Monday, January 16, 2017 02:11 - CONCLUSION: Normal examination. Del Mace MD Differential Diagnosis Dehydration, versus electrolyte derangements, versus acute coronary syndrome, versus rhabdomyolysis, versus withdrawal syndrome, versus hepatic encephalopathy Narrative Course During the course of the patients emergency department visit, the patients history, examination, and differential diagnosis were reviewed with the patient. The patient had IV access obtained and blood work sent for analysis. The patient was placed on a push connector assembler with oximetry and blood pressure monitoring. An EKG was done on arrival. The patient's EKG shows evidence of atrial fibrillation with occasional premature ventricular contractions, moderate intraventricular conduction delay at 106 ms, QTC 457 ms, no acute ST segment elevation. The patient was initially provided normal saline IV fluids at a rate of 1 25 mL/ h. After his CPK came back elevated consistent with rhabdomyolysis normal saline 1 L IV fluid bolus was administered. The patients laboratory studies were reviewed and remarkable for a white count of 9, hemoglobin 14.4, platelets 139 with 73.4 neutrophils, CMP is remarkable for BUN of 49, creatinine 1.98, magnesium 2.8, total bilirubin 1.7, AST 351, ALT 1144, ammonia level is 24, CPK 1420, MB percent 1.3, troponin I 0.14, elevated in the intermediate range which may be related to his renal insufficiency. BNP is 142. Lipase 128, TSH 3.6. The patient was given aspirin 162 mg by mouth 1, nitroglycerin 1 inch the chest wall. Radiology studies were reviewed and remarkable for a chest x-ray that shows no acute abnormality, CT scan of the brain shows no acute abnormality. The patient will be admitted to the hospital for continued evaluation and treatment of generalized weakness and rhabdomyolysis. The patients results were discussed with the patient, including the plan of care. I explained that further testing and/ or monitoring is indicated based on the patients history, examination, and/ or laboratory findings. Therefore, I recommended admission for additional evaluation. The patient expressed understanding and was agreeable with this plan. The patient was admitted to the hospital in stable condition and sent to a bed [facility] the [facility] the [facility]. Physician Communication Physician Communication The patient's case was discussed with Dr. Lyons who did agree to admit the patient for further evaluation and treatment at this time. Diagnosis Primary Impression: Generalized weakness Additional Impression: Rhabdomyolysis Qualified Code: M62.82 - Non-traumatic rhabdomyolysis Admitting Information Admitting Physician Requests: Sandra Nino MD Jan 16, 2017 02:33
[2017-01-16 02:40] LABS: AUTOMATED NEUTROPHIL # 6.6 TH/MM3 (1.8-7.7); BASOPHIL % 0.3 % (0.0-2.0); EOSINOPHIL % 0.3 % (0.0-4.0); HEMATOCRIT 43.7 % (39.0-51.0); HEMO FLAGS DIFF FINAL; LYMPH % 16.6 % (9.0-44.0); LYMPHOCYTE # 1.5 TH/MM3 (1.0-4.8); MEAN CELL VOLUME 88.3 FL (80.0-100.0); MEAN CORPUSCULAR HGB CONC 32.9 % (32.0-36.0); MONO % 9.4 % (0.0-8.0); NEUT % 73.4 % (16.0-70.0); PLATELET COUNT 139 TH/MM3 (150-450); RED BLOOD COUNT 4.95 MIL/MM3 (4.50-5.90); RED CELL DISTRIBUTION WIDTH 14.6 % (11.6-17.2)
[2017-01-16 02:54] LABS: ANION GAP 10 MEQ/L (5-15); AST (GOT) 351 U/L (15-37); BICARBONATE 24.1 MEQ/L (21.0-32.0); BLOOD UREA NITROGEN 49 MG/DL (7-18); CHLORIDE 107 MEQ/L (98-107); GLOMERULAR FILTRATION RATE 34 ML/MIN (>89); MAGNESIUM 2.8 MG/DL (1.5-2.5); POTASSIUM 3.6 MEQ/L (3.5-5.1); SODIUM (NA) 141 MEQ/L (136-145)
[2017-01-16 03:08] LABS: ALKALINE PHOSPHATASE 87 U/L (45-117); ALT (GPT) 1144 U/L (12-78); CREATINE KINASE 1420 U/L (39-308); TOTAL BILIRUBIN ADULT 1.7 MG/DL (0.2-1.0)
--- NOTE | 2017-01-16 03:26 | RADRPT ---
EXAM DATE/TIME: 01/16/2017 03:08 [place] COMPARISON: CT BRAIN W/O CONTRAST, June 14, 2015, 11:27. INDICATIONS : Altered mental status. RADIATION DOSE: 44.36 CTDIvol (mGy) MEDICAL HISTORY : Cardiovascular disease. Hypertension. Diabetes mellitus type 2.COPD SURGICAL HISTORY : None. ENCOUNTER: Initial ACUITY: 1 day PAIN SCALE: 0/10 LOCATION: cranial TECHNIQUE: Multiple contiguous axial images were obtained of the head. Using automated exposure control and adj ustment of the mA and/or kV according to patient size, radiation dose was kept as low as reasonably a chievable to obtain optimal diagnostic quality images. FINDINGS: CEREBRUM: The ventricles are normal for age. No evidence of midline shift, mass lesion, hemorrhage or acute in farction. No extra-axial fluid collections are seen. POSTERIOR FOSSA: The cerebellum and brainstem are intact. The 4th ventricle is midline. The cerebellopontine angle i s unremarkable. EXTRACRANIAL: The visualized portion of the orbits is intact. SKULL: The calvaria is intact. No evidence of skull fracture. CONCLUSION: Normal examination. Del Mace MD on January 16, 2017 at 3:25 Board Certified Radiologist. This report was verified electronically.
[2017-01-16 03:43] LABS: CKMB 19.1 NG/ML (0.5-3.6)
[2017-01-16] MEDS ORDERED: SODIUM CHLORIDE 0.9% FLUSH 10 ML FLUSH IV FLUSH PRN (04:15)
[2017-01-16] MEDS ORDERED: LACTULOSE SYRUP 20 GM/30 ML CUP PO ONE (04:15)
[2017-01-16] MEDS ORDERED: NALOXONE HCL 0.4 MG/ML AMP IV PRN (04:15)
[2017-01-16] MEDS ORDERED: SODIUM CHLOR 0.9% 1000 ML INJ 1,000 ML IV ONE (04:15)
[2017-01-16] MEDS ORDERED: NITROGLYCERIN 2% OINT 1 GM PACKET TOPICAL ONE (04:15)
[2017-01-16] MEDS: ASPIRIN 81 MG CHEW TAB CHEW SCH (04:32)
[2017-01-16] MEDS: SODIUM CHLORIDE 0.9% FLUSH 10 ML FLUSH IV FLUSH SCH ×2 (04:32→21:00)
[2017-01-16] MEDS: SODIUM CHLOR 0.9% 1000 ML INJ 1,000 ML IV SCH ×3 (04:49→21:13)
[2017-01-16 04:52] LABS: AMPHETAMINE, URINE NEG (NEG); BARBITURATES, URINE NEG (NEG); COCAINE, URINE NEG (NEG)
[2017-01-16 04:57] LABS: BLOOD, URINE NEG (NEG); GLUCOSE,URINE TRACE mg/dL (NEG); HYALINE CAST, URINE 1 /lpf (RARE); KETONE, URINE 10 mg/dL (NEG); NITRITE,URINE NEG (NEG); PH, URINE 5.5 (5.0-8.5); URINE COLOR YELLOW (YELLW/STRAW)
[2017-01-16 05:47] LABS: COMMENT (UR) CULT NOT INDICATED; CULTURE IF INDICATED CULT NOT INDICATED
[2017-01-16 09:02] LABS: CKMB 13.9 NG/ML (0.5-3.6)
--- NOTE | 2017-01-16 09:13 | HHI.HP ---
HPI Service [facility] Hospitalists Primary Care Physician [facility] Admission Diagnosis Hepatic Encephalopathy, rhabdomyolysis Diagnoses: (1) Toxic metabolic encephalopathy (2) Non-traumatic rhabdomyolysis (3) Acute renal failure (4) Benign labile hypertension (5) Acute adjustment disorder with depressed mood (6) Transaminitis (7) Elevation of cardiac enzymes (8) Tobacco abuse (9) Tobacco abuse counseling (10) Schizoaffective disorder (11) Schizophrenia (12) Noncompliance Chief Complaint: Altered mental status change Travel History International Travel<30 Days: No Contact w/Intl Traveler <30 Da: No Traveled to Known Affected Are: No History of Present Illness 66 year-old man with a history of schizophrenia, schizoaffective disorder hyperlipidemia, hypertension was brought to the ED for evaluation of altered mental status change and medical clearance from [facility]. Patient is a very poor historian and during my exam, he is not making any eye contact with examiner and speaking very short sentences therefore the history is obtained from the EMR note below: "The patient is a 66 year old male who presents to the [facility] emergency department with a history of being brought in for evaluation for medical clearance from the [facility]. The patient is an extremely poor historian. The patient has difficulty providing the information about exactly why he is here in the emergency department. The patient reports that "I was not in reality today". He reports that he was picked up for trespassing by the police. However, when the [facility] is called by the patient's nurse they report that the patient was checked on by his correctional case records supervisor/life scientist today at his trailer and was noted to be lethargic. The patient reportedly had not been eating or drinking. The patient's food in his house was moldy. The patient was brought to the [facility] for evaluation and they also agreed that he was altered compared to his normal baseline with his history of psychiatric disorder, therefore they sent him to the emergency department for evaluation. The patient reports that he has not been taking his psychiatric medications, however he has been taking his blood pressure medicine. The patient reports that he quit smoking 6 months ago, however his correctional case records supervisor reports that he continues to smoke 3 packs of cigarettes per day. The patient denies any recent fevers, cough, congestion, neck pain, chest pain, shortness of breath, abdominal pain, vomiting, diarrhea, urinary symptoms, or neurologic symptoms other than generalized weakness." Abnormal labs include CK, cardiac enzyme me BUN/creatinine and elevated LFTs. Patient denies any chest pain or shortness of breath. Review of Systems ROS Limitations: Poor Historian Other 12 systems reviewed and are negative except for the one mentioned in the history of present illness Past Family Social History Past Medical History Schizophrenia Anxiety Depression Hypertension Atrial fibrillation Hyperlipidemia Past Surgical History Eye surgery Reported Medications Atorvastatin (Atorvastatin Calcium) 20 Mg Tab 20 Mg PO HS Aripiprazole 15 Mg Tab 15 Mg PO BID Trazodone (Trazodone HCl) 50 Mg Tab 50 Mg PO HS PRN Nifedipine ER 24 HR (Nifedipine) 30 Mg Tab 30 Mg PO DAILY Lopressor (Metoprolol Tartrate) 50 Mg Tab 75 Mg PO 1 1/2 PO BID Haloperidol 10 Mg Tab 10 Mg PO BID Benztropine (Benztropine Mesylate) 1 Mg Tab 1 Mg PO DAILY Lipitor (Atorvastatin Calcium) 20 Mg Tab 20 Mg PO HS Aspirin 81 Mg Tabdr 81 Mg PO DAILY Allergies: Coded Allergies: No Known Allergies (Verified , 01/16/17) Per pt. Family History Father had LA Social History Alcohol Use: No Tobacco Use: Yes (3 PACKS A DAY ) Substance Use: No Physical Exam Vital Signs Vital Signs Date Time Temp Pulse Resp B/P Pulse Ox O2 Delivery O2 Flow Rate FiO2 01/16/17 08:00 102 17 179/91 99 Room Air 01/16/17 07:00 102 16 169/94 99 Room Air 01/16/17 05:17 89 18 159/94 98 Room Air 01/16/17 04:38 81 18 147/95 92 Room Air 01/16/17 02:09 96 Room Air 01/16/17 01:44 97.3 81 18 158/88 94 Room Air 01/16/17 01:23 90 18 150/83 90 Room Air 01/15/17 19:52 98.5 125 18 140/98 99 Room Air Physical Exam GENERAL: This is a well-nourished, well-developed patient, in no apparent distress. SKIN: No rashes, ecchymoses or lesions. Cool and dry. HEAD: Atraumatic. Normocephalic. No temporal or scalp tenderness. EYES: Pupils equal round and reactive. Extraocular motions intact. No scleral icterus. No injection or drainage. ENT: Nose without bleeding, purulent drainage or septal hematoma. Throat without erythema, tonsillar hypertrophy or exudate. Uvula midline. Airway patent. NECK: Trachea midline. No JVD or lymphadenopathy. Supple, nontender, no meningeal signs. CARDIOVASCULAR: Regular rate and rhythm without murmurs, gallops, or rubs. RESPIRATORY: Clear to auscultation. Breath sounds equal bilaterally. No wheezes , rales, or rhonchi. GASTROINTESTINAL: Abdomen soft, non-tender, nondistended. No hepato-splenomegaly , or palpable masses. No guarding. MUSCULOSKELETAL: Extremities without clubbing, cyanosis, or edema. No joint tenderness, effusion, or edema noted. No calf tenderness. Negative Homans sign bilaterally. NEUROLOGICAL: Awake and alert. Cranial nerves II through XII intact. Motor and sensory grossly within normal limits. Five out of 5 muscle strength in all muscle groups. Normal speech. Laboratory Laboratory Tests Test 01/16/17 01/16/17 01/16/17 01/16/17 02:10 04:30 04:35 07:50 White Blood Count 9.0 Red Blood Count 4.95 Hemoglobin 14.4 Hematocrit 43.7 Mean Corpuscular Volume 88.3 Mean Corpuscular Hemoglobin 29.0 Mean Corpuscular Hemoglobin 32.9 Concent Red Cell Distribution Width 14.6 Platelet Count 139 Mean Platelet Volume 11.1 Neutrophils (%) (Auto) 73.4 Lymphocytes (%) (Auto) 16.6 Monocytes (%) (Auto) 9.4 Eosinophils (%) (Auto) 0.3 Basophils (%) (Auto) 0.3 Neutrophils # (Auto) 6.6 Lymphocytes # (Auto) 1.5 Monocytes # (Auto) 0.8 Eosinophils # (Auto) 0.0 Basophils # (Auto) 0.0 CBC Comment DIFF FINAL Differential Comment Sodium Level 141 Potassium Level 3.6 Chloride Level 107 Carbon Dioxide Level 24.1 Anion Gap 10 Blood Urea Nitrogen 49 Creatinine 1.98 Estimat Glomerular Filtration 34 Rate Random Glucose 102 Calcium Level 8.9 Magnesium Level 2.8 Total Bilirubin 1.7 Aspartate Amino Transf 351 (AST/SGOT) Alanine Aminotransferase 1144 (ALT/SGPT) Alkaline Phosphatase 87 Total Creatine Kinase 1420 886 Creatine Kinase MB 19.1 13.9 Creatine Kinase MB % 1.3 1.6 Troponin I 0.14 0.10 B-Type Natriuretic Peptide 142 Total Protein 6.5 Albumin 3.6 Lipase 128 Thyroid Stimulating Hormone 3.600 3rd Gen Ethyl Alcohol Level LESS THAN 3 Urine Color YELLOW Urine Turbidity CLEAR Urine pH 5.5 Urine Specific [place] 1.018 Urine Protein TRACE Urine Glucose (UA) TRACE Urine Ketones 10 Urine Occult Blood NEG Urine Nitrite NEG Urine Bilirubin NEG Urine Urobilinogen 2.0 Urine Leukocyte Esterase NEG Urine RBC 4 Urine WBC 2 Urine Hyaline Casts 1 Urine Sperm OCC Microscopic Urinalysis Comment CULT NOT INDICATED Urine Opiates Screen NEG Urine Barbiturates Screen NEG Urine Amphetamines Screen NEG Urine Benzodiazepines Screen NEG Urine Cocaine Screen NEG Urine Cannabinoids Screen NEG Ammonia 24 Result Diagram: 01/16/1720901/16/17209 Imaging Last Impressions Head CT 01/16/17203 Signed Impressions: Service Date/Time: Monday, January 16, 2017 03:08 - CONCLUSION: Normal examination. Del Mace MD Chest X-Ray 01/16/17203 Signed Impressions: Service Date/Time: Monday, January 16, 2017 02:11 - CONCLUSION: Normal examination. Del Mace MD Assessment and Plan Problem List: (1) Non-traumatic rhabdomyolysis ICD Code: M62.82 Status: Acute (2) Acute renal failure ICD Code: N17.9 Status: Acute (3) Benign labile hypertension ICD Code: I10 Status: Acute (4) Schizoaffective disorder, bipolar type ICD Code: F25.0 Status: Acute (5) Acute adjustment disorder with depressed mood ICD Code: F43.21 Status: Acute (6) Transaminitis ICD Code: R74.0 Status: Acute (7) Elevation of cardiac enzymes ICD Code: R74.8 Status: Acute (8) Tobacco abuse ICD Code: Z72.0 Status: Acute (9) Tobacco abuse counseling ICD Code: Z71.6 Status: Acute Assessment and Plan 66-year-old man with Toxic metabolic encephalopathy: Now resolved -Head CT noted and reviewed by me without any acute finding -Chest x-ray noted and reviewed by me without any cardio pulmonary disease Ammonia level 24 -Will check EEG Elevated cardiac enzyme -Unlikely non-ST elevation LA however will continue with ACS ruled out per protocol with serial cardiac enzyme and EKGs -Resume aspirin, beta juana, start nitroglycerin sublingual when necessary. Check 2-D echo Maybe secondary to acute renal failure versus hypertensive crisis Non traumatic rhabdomyolysis -Aggressive IV fluid hydration and monitor CK Acute renal failure-prerenal secondary to dehydration -Continue IV fluid hydration, monitor BUN/creatinine and avoid all nephrotoxic drugs Labile benign hypertension -Resume Toprol-XL and Procardia Transaminitis -Maybe secondary to medication side effect however will check hepatitis profile and treat accordingly. Monitor CMP Acute mood disorder Schizoaffective disorder -Consultation to psychiatry Hyperlipidemia -Hold statin in the setting of transaminitis Tobacco abuse: Tobacco counselling provided, start nicotine patch DVT prophylaxis Lovenox Code Status Full code Discussed Condition With Patient Physician Certification 2 Midnight Certification Type: Admission for Inpatient Services Order for Inpatient Services The services are ordered in accordance with Medicare regulations or non- Medicare payer requirements, as applicable. In the case of services not specified as inpatient-only, they are appropriately provided as inpatient services in accordance with the 2-midnight benchmark. Estimated LOS (days): 2 days is the estimated time the patient will need to remain in the hospital, assuming treatment plan goals are met and no additional complications. Post-Hospital Plan: Not yet determined Rashaad Nuñez MD Jan 16, 2017 09:12
[2017-01-16] MEDS ORDERED: ACETAMINOPHEN 325 MG TAB PO PRN (09:15)
[2017-01-16] MEDS ORDERED: ONDANSETRON HCL 4 MG/2 ML VIAL IV PRN (09:15)
[2017-01-16] MEDS ORDERED: DOCUSATE SODIUM 50 MG/SENNA 8.6 MG TAB PO PRN (09:15)
[2017-01-16] MEDS ORDERED: NITROGLYCERIN 0.4 MG SL 25 TABS/BTL SL PRN (09:45)
[2017-01-16] MEDS: NICOTINE 21 MG/24 HR PATCH T-DERMAL SCH (10:02)
[2017-01-16] MEDS: METOPROLOL TARTRATE 25 MG TAB PO SCH ×2 (11:06→21:15)
[2017-01-16] MEDS: NIFEdipine 30 MG SUSTAINED RELEASE TAB PO SCH (11:07)
[2017-01-16] MEDS ORDERED: traZODone HCL 50 MG TAB PO PRN (16:45)
--- NOTE | 2017-01-16 16:57 | PD.CONS ---
Provisional Diagnosis Admission Date Jan 16, 2017 at 04:10 [place] I. Schizoaffective disorder, bipolar type vs paranoid schizophrenia [place] II. Deferred [place] III. Hyperlipidemia and hypertension [place] IV. Long history of chronic schizophrenia [place] V. 40 History of Present Illness Service Psychiatry Consult Requested By Primary Care Physician [facility] HPI The patient is a 66 year-old man, domiciled in [facility], single , unemployed, supported by [facility], with extensive psychiatric history of schizophrenia, schizoaffective, multiple psychiatric hospitalizations, known by our service, he was recently discharged from [facility] where he was under the care of Dr. Ivy, documentation was reviewed, he is on Haldol 10 mg twice a day, Abilify 15 mg, benztropine 1 mg twice a day, medical history of disorder hyperlipidemia, hypertension was brought to the ED for evaluation of altered mental status change and medical clearance from [facility]. Patient is a very poor historian and during my exam, he is not making any eye contact with examiner and speaking very short sentences therefore the history is obtained from the EMR note below:"The patient is a 66 year old male who presents to the [facility] emergency department with a history of being brought in for evaluation for medical clearance from the [facility]. The patient is an extremely poor historian. The patient has difficulty providing the information about exactly why he is here in the emergency department. The patient reports that "I was not in reality today". He reports that he was picked up for trespassing by the police. However, when the [facility] is called by the patient's nurse they report that the patient was checked on by his nurse outreach case manager/life insurance specialist today at his trailer and was noted to be lethargic. The patient reportedly had not been eating or drinking. The patient's food in his house was moldy. The patient was brought to the [facility] for evaluation and they also agreed that he was altered compared to his normal baseline with his history of psychiatric disorder , therefore they sent him to the emergency department for evaluation. The patient reports that he has not been taking his psychiatric medications, however he has been taking his blood pressure medicine. The patient reports that he quit smoking 6 months ago, however his nurse outreach case manager reports that he continues to smoke 3 packs of cigarettes per day. The patient denies any recent fevers, cough, congestion, neck pain, chest pain, shortness of breath, abdominal pain, vomiting, diarrhea, urinary symptoms, or neurologic symptoms other than generalized weakness." On psychiatric evaluation today the patient is just superficially cooperative, seems to be distant, internally preoccupied, with pronounced blocking thought, flat affect, word finding difficulties and refractory speech. Patient says that he hasn't been feeling well, but he doesn' t elaborate about his feelings. He repeatedly states he began to get any information with me to call his best friend Jeremie Mishra. Patient denies depressive symptoms, he denies suicidal and homicidal ideation, he denies visual and auditory hallucinations. Patient is oriented 3. He denies the use of alcohol and illicit drugs. Collateral information from Jeremie Danica, [phone], was obtained. He says that the patient has been very paranoid and acting bizarre in the last week. He is very far from baseline. One of the things the cause his attention is the restlessness and his stillness. He is usually a very calm person, he relates very well with people and has logical conversations. He says the most probably the patient hasn't been taking his medication as prescribed, but he is not very sure about. Review of Systems Constitutional: DENIES: Diaphoretic episodes, Fatigue, Fever, Weight gain, Weight loss, Chills, Dizziness, Change in appetite, Night Sweats Endocrine: DENIES: Heat/cold intolerance, Polydipsia, Polyuria, Polyphagia Eyes: DENIES: Blurred vision, Diplopia, Eye inflammation, Eye pain, Vision loss , Photosensitivity, Double Vision Ears, nose, mouth, throat: DENIES: Tinnitus, Hearing loss, Vertigo, Nasal discharge, Oral lesions, Throat pain, Hoarseness, Ear Pain, Running Nose, Epistaxis, Sinus Pain, Toothache, Odynophagia Respiratory: DENIES: Apneas, Cough, Snoring, Wheezing, Hemoptysis, Sputum production, Shortness of breath Cardiovascular: DENIES: Chest pain, Palpitations, Syncope, Dyspnea on Exertion , PND, Lower Extremity Edema, Orthopnea, Claudication Musculoskeletal: DENIES: Joint pain, Muscle aches, Stiffness, Joint Swelling, Back pain, Neck pain Integumentary: DENIES: Abnormal pigmentation, Nail changes, Pruritus, Rash Hematologic/lymphatic: DENIES: Bruising, Lymphadenopathy Immunologic/allergic: DENIES: Eczema, Urticaria Psychiatric: COMPLAINS OF: Anxiety, Agitation (restlessness) Past Family Social History Coded Allergies: No Known Allergies (Verified , 01/16/17) Per pt. Active Scripts Atorvastatin 20 Mg Tab20 Mg PO HS #30 TAB Ref 0 Prov:Justin Ivy MD 01/09/17 Aripiprazole 15 Mg Tab15 Mg PO BID #60 TAB Ref 0 Prov:Justin Ivy MD 01/09/17 Trazodone 50 Mg Tab50 Mg PO HS PRN (INSOMNIA) #15 TAB Ref 0 Prov:Justin Ivy MD 01/01/17 Nifedipine ER 24 HR 30 Mg Tab30 Mg PO DAILY #30 TAB Ref 0 Prov:Justin Ivy MD 01/01/17 Metoprolol Tartrate (Lopressor)50 Mg Tab75 Mg PO 1 1/2 po bid #45 TAB Ref 0 Prov:Justin Ivy MD 01/01/17 Haloperidol 10 Mg Tab10 Mg PO BID #60 TAB Ref 0 Prov:Justin Ivy MD 01/01/17 Benztropine 1 Mg Tab1 Mg PO DAILY #30 TAB Ref 0 Prov:Justin Ivy MD 01/01/17 Atorvastatin (Lipitor)20 Mg Tab20 Mg PO HS #30 TAB Ref 0 Prov:Justin Ivy MD 01/01/17 Aspirin 81 Mg Tabdr81 Mg PO DAILY #30 TAB Prov:Andrew Elaine MD 12/18/16 Discontinued Scripts Trazodone 50 Mg Tab50 Mg PO HS PRN (INSOMNIA) #20 TAB Ref 0 Prov:Justin Ivy MD 01/09/17 Nifedipine ER 24 HR 30 Mg Tab30 Mg PO DAILY #30 TAB Ref 0 Prov:Justin Ivy MD 01/09/17 Metoprolol Tartrate (Lopressor)50 Mg Tab75 Mg PO 1 1/2 bid #45 TAB Ref 0 Prov:Justin Ivy MD 01/09/17 Haloperidol 10 Mg Tab10 Mg PO BID #60 TAB Ref 0 Prov:Justin Ivy MD 01/09/17 Benztropine 1 Mg Tab1 Mg PO DAILY #30 TAB Ref 0 Prov:Justin Ivy MD 01/09/[address] (Aspirin EC)81 Mg Tabdr81 Mg PO DAILY #30 TAB Ref 0 Prov:Justin Ivy MD 01/09/17 Aripiprazole 10 Mg Tab10 Mg PO BID #60 TAB Ref 0 Prov:Justin Ivy MD 01/01/17 Current Medications Medications (Trade) Dose Ordered Sig/Mesha Route Start Time Stop Time Status Last Admin Aspirin 162 mg 162 mg DAILY CHEW 01/16/17 09:00 01/16/17 04:32 (NS 1000 ml Inj) 1,000 ml @ 125 mls/hr Q8H IV 01/16/17 04:12 01/16/17 14:16 (NS Flush) 2 ml UNSCH PRN IV FLUSH 01/16/17 04:15 (NS Flush) 2 ml BID IV FLUSH 01/16/17 09:00 01/16/17 04:32 (Narcan Inj) 0.4 mg UNSCH PRN IV 01/16/17 04:15 (Tylenol) 650 mg Q4H PRN PO 01/16/17 09:15 (Zofran Inj) 4 mg Q6H PRN IV 01/16/17 09:15 (Lizy-Colace) 1 tab BID PRN PO 01/16/17 09:15 (Lopressor) 75 mg BID PO 01/16/17 09:30 01/16/17 11:06 (Procardia Xl) 30 mg DAILY PO 01/16/17 09:30 01/16/17 11:07 (Habitrol 21 Mg Patch.24 Hr) 1 patch DAILY T-DERMAL 01/16/17 10:02 Miscellaneous Information 1 HS T-DERMAL 01/16/17 21:00 (Nitrostat Sl) 0.4 mg Q5M PRN SL 01/16/17 09:45 (Haldol) 10 mg BID PO 01/16/17 21:00 UNV (Abilify) 15 mg DAILY PO 01/16/17 16:45 UNV (Desyrel) 100 mg HS PO 01/16/17 21:00 UNV (Abilify) 15 mg BID PO 01/16/17 21:00 UNV (Cogentin) 1 mg DAILY PO 01/16/17 16:45 UNV (Haldol) 10 mg BID PO 01/16/17 21:00 UNV (Desyrel) 50 mg HS PRN PO 01/16/17 16:45 UNV Family History He denies Social History Patient was born and raised in [facility], he has been living in [place] since 1986, he lives in [facility], divorce, highest level of education is 3 years college Physical Exam On physical exam patient is restless, with an automatic involuntary choreoathetoid be lateral have movements, lip smacking which suggests tardive dyskinesia, but no tremors, no parkinsonism, no marked agitation, hypoactive Vital Signs Vital Signs Date Time Temp Pulse Resp B/P Pulse Ox O2 Delivery O2 Flow Rate FiO2 01/16/17 16:33 98.2 95 19 124/67 96 01/16/17 11:00 Room Air Lab Results Na 144, K3.6, AST 351, ALT 1144, CPK initially was 1420, now is 655 Mental Status Examination Appearance man, [facility], age appearing, just superficially cooperative, markedly psychomotor retarded with episodic restlessness Speech: Slow, Other (poverty of speech) Orientation: x3 Memory: Unremarkable Thought Process: Goal Directed, Thought Blocking Thought Content: Paranoid Attention and Concentration: Abnormal Suicidal Ideation: No Previous Suicide Attempts: No Homicidal Ideation: No Previous Homicide Attempts: No Affect if Inappropriate: Flat Mood: Oppositional Motor Activity: Normal gait Assessment & Plan Problem List: (1) Schizoaffective disorder, bipolar type Assessment & Plan: The patient is a 66 year-old man, domiciled in [facility], single, unemployed, supported by [facility], with extensive psychiatric history of schizophrenia, schizoaffective, multiple psychiatric hospitalizations, known by our service, he was recently discharged from [facility] where he was under the care of Dr. Ivy, documentation was reviewed, he is on Haldol 10 mg twice a day, Abilify 15 mg, benztropine 1 mg twice a day, medical history of disorder hyperlipidemia, hypertension was brought to the ED for evaluation of altered mental status change and medical clearance from [facility]. Admitted due to Abnormal labs include CK, cardiac enzyme me BUN/creatinine and elevated LFTs. As per report in EMS patient hasn' t been eating, not taking his medication not taking care of himself. On psychiatric evaluation patient is poorly cooperative, he can answer some direct questions in a very reticent way, but Marked negativism, alogia, refractory speech, thought blocking and internal preoccupation are present. Patient also seems to be restless, with automatic, continues choreoathetoid movement of both hands which seems to be consistent with tardive dyskinesia. He denies depressive symptoms, he denies suicidal and homicidal ideation, he denies visual and auditory hallucinations. However, as per collateral information of her best friend patient hasn't been at baseline in the last weeks, he has not been able to take care of himself, not eating, and not a baseline functional level. Patient will benefit of psychiatric admission for stabilization. Will resume current psychotropic regimen Haldol 10 mg twice a day, Abilify 15 mg, benztropine 1 mg twice a day. I discussed personally with Dr. Slade the possibility of transferring the patient to the med psych unit. We'll follow-up. ICD Code: F25.0 Assessment & Plan Estimated LOS: Wilver Min MD Jan 16, 2017 16:57
[2017-01-16] MEDS: ARIPiprazole 15 MG TAB PO SCH (18:05)
[2017-01-16] MEDS: BENZTROPINE MESYLATE 1 MG TAB PO SCH (18:05)
--- NOTE | 2017-01-16 18:47 | MG ---
cc: ANN ZARAGOZA M.D. Lab No: Date: 01/16/2017 Age: Sex: M Race: REQUESTING PHYSICIAN Dr. Nuñez INTRODUCTION An EEG was obtained on this 66-year-old patient being evaluated for altered mental status. DESCRIPTION The patient is described as awake and asleep. There is low amplitude beta rhythms diffusely. There are some low and mid amplitude 10 per second rhythms in the posterior head regions. The background is reactive. Photic stimulation showed some bilateral driving response. Hyperventilation was not performed. The patient drowses and there are more widespread beta activity and there are some theta and rare delta rhythms. INTERPRETATION Normal awake and drowsy EEG. Ann Zaragoza MD OFC/KK /5:56 PM /6:38 PM
[2017-01-16] MEDS ORDERED: ARIPiprazole 15 MG TAB PO SCH (21:00)
[2017-01-16] MEDS ORDERED: REMOVE OLD PATCH T-DERMAL SCH (21:00)
[2017-01-16] MEDS ORDERED: traZODone HCL 100 MG TAB PO SCH (21:00)
[2017-01-16] MEDS ORDERED: HALOPERIDOL 10 MG TAB PO SCH (21:00)
--- NOTE | 2017-01-16 21:02 | EC ---
Study Study Date:01/16/2017 STUDY CONCLUSIONS SUMMARY - Left ventricle: The cavity size was normal. Wall thickness was increased in a pattern of mild LVH. Systolic function was normal. The estimated ejection fraction was 60%. Wall motion was normal; there were no regional wall motion abnormalities. - Aortic valve: Mild regurgitation. - Tricuspid valve: Mild regurgitation. If LV function is below 40, please consider prescribing an ACEI or ARB or document rationale for non-use. PROCEDURE DATA STUDY STATUS: Elective. Procedure: Transthoracic echocardiography. Image quality was good. Scanning was performed from the parasternal, apical, and subcostal acoustic windows. Study completion: The patient tolerated the procedure well. Transthoracic echocardiography. M-mode, complete 2D, complete spectral Doppler, and color Doppler. Patient status: Inpatient. CARDIAC ANATOMY LEFT VENTRICLE: The cavity size was normal. Wall thickness was increased in a pattern of mild LVH. Systolic function was normal. The estimated ejection fraction was 60%. Wall motion was normal; there were no regional wall motion abnormalities. AORTIC VALVE: Trileaflet; normal thickness leaflets. Doppler: Transvalvular velocity was within the normal range. There was no stenosis. Mild regurgitation. Peak gradient: 12mm Hg (S). AORTA: Aortic root: The aortic root was normal in size. MITRAL VALVE: Structurally normal valve. Doppler: Transvalvular velocity was within the normal range. There was no evidence for stenosis. Trace regurgitation. LEFT ATRIUM: The atrium was normal in size. RIGHT VENTRICLE: The cavity size was normal. Wall thickness was normal. PULMONIC VALVE: Doppler: Transvalvular velocity was within the normal range. There was no evidence for stenosis. No regurgitation. TRICUSPID VALVE: Structurally normal valve. Doppler: Transvalvular velocity was within the normal range. Mild regurgitation. PULMONARY ARTERY: The main pulmonary artery was normal-sized. Systolic pressure was within the normal range. RIGHT ATRIUM: The atrium was normal in size. PERICARDIUM: There was no pericardial effusion. SYSTEMIC VEINS: Inferior vena cava: The vessel was normal in size. BASIC MEASUREMENTS ADULT Normal Left ventricle LV internal dimension, ED, chordal level, 47.7 mm 43-52 PLAX LV internal dimension, ES, chordal level, 34.8 mm 23-38 PLAX Fractional shortening, chordal level, PLAX *27 % >29 LV posterior wall thickness, ED 7.81 mm IVS/LVPW ratio, ED *1.88 <1.3 Ventricular septum Septal thickness, ED 14.7 mm Aortic valve Leaflet separation 21 mm 15-26 Left atrium Anterior-posterior dimension 38 mm Right ventricle RV internal dimension, ED, PLAX 21 mm 19-38 BASIC MEASUREMENTS ADULT Normal Aortic valve Leaflet separation 21 mm 15-26 Aorta Root diameter, ED 32 mm 20-37 DOPPLER MEASUREMENTS ADULT Normal Main pulmonary artery Pressure, S 27 mm Hg =30 Aortic valve Peak velocity, S 175 cm/s Peak gradient, S 12 mm Hg Tricuspid valve Regurgitant peak velocity 233 cm/s Peak RV-RA gradient, S 22 mm Hg Systemic veins Estimated CVP 5 mm Hg Right ventricle RV pressure, S 27 mm Hg <30 LEGEND: Mean values are shown as u=mean value. Asterisk (*) azevedo values outside specified normal range. Prepared and signed by Paul Umana [id number]
[2017-01-16] MEDS: HALOPERIDOL 10 MG TAB PO SCH (21:15)
--- NOTE | 2017-01-16 22:05 | EKG ---
Date Performed: 01/16/2017 Time Performed: 07:54:15 PTAGE: 66 years EKG: ATRIAL FIBRILLATION POSSIBLE INFERIOR MYOCARDIAL INFARCTION MODERATE T-WAVE ABNORMALITY, CO NSIDER LATERAL ISCHEMIA ABNORMAL ECG PREVIOUS TRACING : 01/16/2017 02.16 Compared to prior tracing no significant change DOCTOR: Kike James Interpretating Date/Time 01/16/2017 22:05:27
--- NOTE | 2017-01-16 22:27 | EKG ---
Date Performed: 01/16/2017 Time Performed: 02:16:36 PTAGE: 66 years EKG: ATRIAL FIBRILLATION WITH ABERRANT CONDUCTION OR VENTRICULAR PREMATURE COMPLEXES MODERATE IN TRAVENTRICULAR CONDUCTION DELAY MODERATE T-WAVE ABNORMALITY, CONSIDER LATERAL ISCHEMIA ABNORMAL ECG PREVIOUS TRACING : 12/08/2016 23.11 Compared to prior tracing no significant change DOCTOR: Kike James Interpretating Date/Time 01/16/2017 22:26:30
[2017-01-17] VITALS (10 sets, daily range): BP systolic 120–157; BP diastolic 83–103; PULSE 74–95; RESP 18; TEMP 96–97.6; O2SAT 94–97
[2017-01-17 03:42] LABS: AUTOMATED NEUTROPHIL # 5.1 TH/MM3 (1.8-7.7); BASOPHIL # 0.1 TH/MM3 (0-0.2); BASOPHIL % 1.6 % (0.0-2.0); EOSINOPHIL # 0.1 TH/MM3 (0-0.4); EOSINOPHIL % 2.1 % (0.0-4.0); HEMATOCRIT 40.3 % (39.0-51.0); HEMO FLAGS DIFF FINAL; LYMPH % 14.9 % (9.0-44.0); MEAN CELL VOLUME 87.6 FL (80.0-100.0); MEAN CORPUSCULAR HEMOGLOBIN 29.5 PG (27.0-34.0); MEAN CORPUSCULAR HGB CONC 33.7 % (32.0-36.0); MONO % 9.4 % (0.0-8.0); PLATELET COUNT 136 TH/MM3 (150-450); RED CELL DISTRIBUTION WIDTH 14.6 % (11.6-17.2)
[2017-01-17 04:05] LABS: ALT (GPT) 743 U/L (12-78); ANION GAP 7 MEQ/L (5-15); AST (GOT) 159 U/L (15-37); BICARBONATE 23.6 MEQ/L (21.0-32.0); BLOOD UREA NITROGEN 24 MG/DL (7-18); CHLORIDE 112 MEQ/L (98-107); GLOMERULAR FILTRATION RATE 74 ML/MIN (>89); MAGNESIUM 2.1 MG/DL (1.5-2.5); POTASSIUM 3.5 MEQ/L (3.5-5.1); SODIUM (NA) 143 MEQ/L (136-145)
[2017-01-17 04:11] LABS: ALKALINE PHOSPHATASE 71 U/L (45-117); CREATINE KINASE 363 U/L (39-308); TOTAL BILIRUBIN ADULT 1.4 MG/DL (0.2-1.0)
[2017-01-17] MEDS: SODIUM CHLOR 0.9% 1000 ML INJ 1,000 ML IV SCH ×2 (04:27→12:12)
[2017-01-17] MEDS ORDERED: POTASSIUM CHLOR 20 MEQ PREMIX 100 ML IV ONE (04:30)
[2017-01-17 04:32] LABS: CKMB 7.1 NG/ML (0.5-3.6)
[2017-01-17] MEDS: ASPIRIN 81 MG CHEW TAB CHEW SCH (08:38)
[2017-01-17] MEDS: METOPROLOL TARTRATE 25 MG TAB PO SCH (08:39)
[2017-01-17] MEDS: NIFEdipine 30 MG SUSTAINED RELEASE TAB PO SCH (08:39)
[2017-01-17] MEDS: BENZTROPINE MESYLATE 1 MG TAB PO SCH (08:39)
[2017-01-17] MEDS: NICOTINE 21 MG/24 HR PATCH T-DERMAL SCH (08:40)
[2017-01-17] MEDS: SODIUM CHLORIDE 0.9% FLUSH 10 ML FLUSH IV FLUSH SCH (08:40)
[2017-01-17] MEDS: ARIPiprazole 15 MG TAB PO SCH (08:40)
[2017-01-17] MEDS: HALOPERIDOL 10 MG TAB PO SCH (08:41)
[2017-01-17] MEDS ORDERED: ASPIRIN EC 81 MG TABEC PO SCH (09:00)
--- NOTE | 2017-01-17 09:46 | HHI.PYPN ---
Subjective Remarks Patient was seen today for psychiatric evaluation, patient continues to present a very marked poverty of speech, flat affect, thought blocking. He says that he feels better today, he denies depression, he denies suicidal and homicidal ideation, he denies visual and auditory hallucinations. Patient is fully oriented 3. However he seems to restless, with continues lip smacking an seems to be an automatic involuntary movement of his hands with episodic restlessness. He has been compliant with his medication, without any episodes of aggressive behavior, hostility of agitation reported. Review of Systems Other Patient doesn't have any somatic complaints at this moment Objective Alert: Yes [place]: Person, Place, Date Mood: Calm Affect: Flat Memory Intact: Immediate Hallucinations: Other (he denies) Delusions: No Delusion Type: Other (none) Suicidal: Ideation (patient denies) Homicidal: Ideation (patient denies) Insight/Judgment Poor Labs Test 01/16/17 01/16/17 01/17/17 11:20 14:05 03:29 Hepatitis A IgM Antibody NEGATIVE Hepatitis B Surface Antigen NEGATIVE Hepatitis B Core IgM Antibody NEGATIVE Hepatitis C Antibody NEGATIVE Total Creatine Kinase 655 U/L 363 U/L Creatine Kinase MB 12.0 NG/ML 7.1 NG/ML Creatine Kinase MB % 1.8 % 2.0 % Troponin I 0.08 NG/ML 0.07 NG/ML White Blood Count 7.0 TH/MM3 Red Blood Count 4.60 MIL/MM3 Hemoglobin 13.6 GM/DL Hematocrit 40.3 % Mean Corpuscular Volume 87.6 FL Mean Corpuscular Hemoglobin 29.5 PG Mean Corpuscular Hemoglobin 33.7 % Concent Red Cell Distribution Width 14.6 % Platelet Count 136 TH/MM3 Mean Platelet Volume 10.1 FL Neutrophils (%) (Auto) 72.0 % Lymphocytes (%) (Auto) 14.9 % Monocytes (%) (Auto) 9.4 % Eosinophils (%) (Auto) 2.1 % Basophils (%) (Auto) 1.6 % Neutrophils # (Auto) 5.1 TH/MM3 Lymphocytes # (Auto) 1.0 TH/MM3 Monocytes # (Auto) 0.7 TH/MM3 Eosinophils # (Auto) 0.1 TH/MM3 Basophils # (Auto) 0.1 TH/MM3 CBC Comment DIFF FINAL Differential Comment Sodium Level 143 MEQ/L Potassium Level 3.5 MEQ/L Chloride Level 112 MEQ/L Carbon Dioxide Level 23.6 MEQ/L Anion Gap 7 MEQ/L Blood Urea Nitrogen 24 MG/DL Creatinine 1.01 MG/DL Estimat Glomerular Filtration 74 ML/MIN Rate Random Glucose 92 MG/DL Calcium Level 8.2 MG/DL Magnesium Level 2.1 MG/DL Total Bilirubin 1.4 MG/DL Aspartate Amino Transf 159 U/L (AST/SGOT) Alanine Aminotransferase 743 U/L (ALT/SGPT) Alkaline Phosphatase 71 U/L Total Protein 5.4 GM/DL Albumin 2.9 GM/DL Vitals/IOs Vital Signs Date Time Temp Pulse Resp B/P Pulse Ox O2 Delivery O2 Flow Rate FiO2 01/17/17 04:17 90 01/17/17 04:00 97.0 18 157/96 94 01/16/17 11:00 Room Air Intake and Output 01/16/17 01/16/17 01/17/17 08:00 16:00 00:00 Intake Total 1380 ml Output Total 250 ml Balance 1130 ml Assessment & Plan Problem List: (1) Schizoaffective disorder, bipolar type Assessment & Plan: Patient presents with very flat affect, refractory speech, pronounced thought blocking. He also have a visible continues lip smacking an seems to be an automatic involuntary movement of his hands with episodic restlessness. Movement disorder could be akathisia with underlying tardive dyskinesia. We will decrease the Abilify to 10 mg and add propranolol 10 mg 3 times a day for akathisia. We will admit the patient is psychiatry for stabilization. ICD Code: F25.0 Assessment & Plan Estimated LOS: days Justification for Cont. Inpt. Patient needs psychiatric hospitalization for stabilization Wilver Valdivia MD Jan 17, 2017 09:46
[2017-01-17] MEDS ORDERED: PROP10TA6 PO (10:17)
[2017-01-17] MEDS ORDERED: ARIP1TAB12 PO (10:17)
[2017-01-17] MEDS ORDERED: METO25TA3 PO (10:17)
[2017-01-17] MEDS ORDERED: TRAZ50TA12 PO (10:17)
--- NOTE | 2017-01-17 10:19 | HHI.PR ---
Subjective Remarks Follow-up encephalopathy/nontraumatic rhabdomyolysis/elevated cardiac enzyme/ acute mood disorder 01/17/17-patient seen and examined, EEG unremarkable, denies any chest pain or shortness of breath. Patient with flat affect. Case was discussed yesterday with psychiatry Objective Vitals Vital Signs Date Time Temp Pulse Resp B/P Pulse Ox O2 Delivery O2 Flow Rate FiO2 01/17/17 08:00 97.3 78 18 137/88 97 01/17/17 04:17 90 01/17/17 04:00 97.0 85 18 157/96 94 01/17/17 02:53 82 151/94 96 01/17/17 02:42 80 01/17/17 00:00 96.7 82 18 140/90 96 01/16/17 20:00 97.5 101 20 123/78 95 01/16/17 16:33 98.2 95 19 124/67 96 01/16/17 12:54 98.2 88 18 154/107 98 01/16/17 11:00 91 15 170/94 94 Room Air I/O 01/16/17 01/16/17 01/16/17 01/17/17 01/17/17 01/17/17 07:00 15:00 23:00 07:00 15:00 23:00 Intake Total 1380 ml 700 ml Output Total 250 ml Balance 1130 ml 700 ml Intake Oral 380 ml IV Total 1000 ml 700 ml Output Urine Total 250 ml # Voids 1 1 Result Diagram: 01/17/17 0329 01/17/17 0329 Imaging Last Impressions Head CT 01/16/17203 Signed Impressions: Service Date/Time: Monday, January 16, 2017 03:08 - CONCLUSION: Normal examination. Del Mace MD Chest X-Ray 01/16/17203 Signed Impressions: Service Date/Time: Monday, January 16, 2017 02:11 - CONCLUSION: Normal examination. Del Mace MD Objective Remarks GENERAL: NAD SKIN: Warm and dry. HEAD: Normocephalic. EYES: No scleral icterus. No injection or drainage. NECK: Supple, trachea midline. No JVD or lymphadenopathy. CARDIOVASCULAR: Regular rate and rhythm without murmurs, gallops, or rubs. RESPIRATORY: Breath sounds equal bilaterally. No accessory muscle use. GASTROINTESTINAL: Abdomen soft, non-tender, nondistended. MUSCULOSKELETAL: No cyanosis, or edema. BACK: Nontender without obvious deformity. No CVA tenderness. A/P Problem List: (1) Non-traumatic rhabdomyolysis ICD Code: M62.82 Status: Acute (2) Acute renal failure ICD Code: N17.9 Status: Resolved (3) Benign labile hypertension ICD Code: I10 Status: Resolved (4) Schizoaffective disorder, bipolar type ICD Code: F25.0 Status: Chronic (5) Acute adjustment disorder with depressed mood ICD Code: F43.21 Status: Acute (6) Transaminitis ICD Code: R74.0 Status: Acute (7) Elevation of cardiac enzymes ICD Code: R74.8 Status: Acute (8) Tobacco abuse ICD Code: Z72.0 Status: Chronic (9) Tobacco abuse counseling ICD Code: Z71.6 Status: Acute Assessment and Plan 66-year-old man with Toxic metabolic encephalopathy: Now resolved -Head CT without any acute finding -Chest x-ray without any cardio pulmonary disease Ammonia level 24 -EEG negative Elevated cardiac enzyme -Maybe secondary to long-standing hypertension and renal failure, Unlikely non- ST elevation VT however will continue with ACS ruled out per protocol with serial cardiac enzyme and EKGs -Continue aspirin, beta juana, nitroglycerin sublingual when necessary. 2-D echo with EF 60% Maybe secondary to acute renal failure versus hypertensive crisis Non traumatic rhabdomyolysis -Improvement with Aggressive IV fluid hydration and monitor CK Acute renal failure-prerenal secondary to dehydration -Continue IV fluid hydration, monitor BUN/creatinine and avoid all nephrotoxic drugs Labile benign hypertension -Continue Toprol-XL and Procardia Transaminitis -Maybe secondary to medication side effect however will check hepatitis profile and treat accordingly. Monitor CMP -Hepatitis panel negative Acute mood disorder Schizoaffective disorder Schizophrenia -Appreciate input from psychiatry -Secondary to akathisia with underlying tardive dyskinesia Patient is currently on Abilify to 10 mg and propranolol 10 mg 3 times a day for akathisia. Hyperlipidemia -Hold statin in the setting of transaminitis Tobacco abuse: Tobacco counselling provided, continue nicotine patch DVT prophylaxis Lovenox Discharge Planning Discharge patient to inpatient psychiatry Condition on discharge: Improved Regular Diet as tolerated Ad Ayana activity Rx written: See EMR in 1-2 days Follow-up with primary care physician Rashaad Nuñez MD Jan 17, 2017 10:19
[2017-01-17] MEDS: PROPRANOLOL HCL 10 MG TAB PO SCH ×2 (10:28→18:42)
--- NOTE | 2017-01-17 13:45 | EKG ---
Date Performed: 01/16/2017 Time Performed: 17:52:23 PTAGE: 66 years EKG: ATRIAL FIBRILLATION ABNORMAL ECG PREVIOUS TRACING : 01/16/2017 07.54 Compared to the previous tracing there has been a shift in axis. Criteria for inferior infarction are no longer met. DOCTOR: Lee Negrete Interpretating Date/Time 01/17/2017 13:41:45
[2017-01-18] MEDS ORDERED: ARIPiprazole 10 MG TAB PO SCH (09:00)
== END 2017-01-17 20:20 | DRG 92 ==
LOC: NEPE 19:50 → NEDA 01-16 04:10 → N05A 01-16 12:39
PROVIDERS: ADMIT Hospitalist; ATTEND Hospitalist
DX: G92 Toxic encephalopathy (principal); M62.82 Rhabdomyolysis; N17.9 Acute kidney failure, unspecified; I48.91 Unspecified atrial fibrillation; J44.9 Chronic obstructive pulmonary disease, unspecified; E86.0 Dehydration; I10 Essential (primary) hypertension; E78.5 Hyperlipidemia, unspecified; F41.9 Anxiety disorder, unspecified; F17.210 Nicotine dependence, cigarettes, uncomplicated; I45.9 Conduction disorder, unspecified; Z79.82 Long term (current) use of aspirin; F43.21 Adjustment disorder with depressed mood; R74.0 Nonspecific elevation of levels of transaminase and lactic acid dehydrogenase [LDH]; Z91.19 Patient's noncompliance with other medical treatment and regimen; F25.0 Schizoaffective disorder, bipolar type; R74.8 Abnormal levels of other serum enzymes; G24.01 Drug induced subacute dyskinesia
CPT/HCPCS: 70450; 71010; 80053; 80074; 80307; 81001; 82140; 82550; 82552; 83690; 83735; 83880; 84132; 84443; 84484; 85025; 93005; 93306; 95819; J3480; J7030

== ENCOUNTER 2017-01-17 20:45 | Inpatient (IN) | payer OTHER, MEDICARE ==
[2017-01-17 20:45] VITALS: BP 155/92; PULSE 98; RESP 18; TEMP 98.1; O2SAT 98
[~2017-01-17 20:45] MED LIST changes: -ASPI81TA11 PO; +METO25TA3 PO; +PROP10TA6 PO
[2017-01-17] MEDS ORDERED: MAGNESIUM HYDROXIDE SUSP 30 ML CUP PO PRN (22:00)
[2017-01-17] MEDS ORDERED: traZODone HCL 100 MG TAB PO SCH ×2 (22:00→22:53)
[2017-01-17] MEDS ORDERED: HALOPERIDOL 10 MG TAB PO SCH (22:00)
[2017-01-17] MEDS ORDERED: ACETAMINOPHEN 325 MG TAB PO PRN (22:00)
[2017-01-17] MEDS ORDERED: LORazepam 1 MG TAB PO PRN (22:00)
[2017-01-17] MEDS ORDERED: ALUMINUM/MAGNESIUM/SIMETH 30 ML CUP PO PRN (22:00)
[2017-01-17] MEDS: PROPRANOLOL HCL 10 MG TAB PO SCH (23:04)
[2017-01-17] MEDS: HALOPERIDOL 10 MG TAB PO SCH (23:04)
[2017-01-18] MEDS: PROPRANOLOL HCL 10 MG TAB PO SCH ×3 (05:31→20:00)
[2017-01-18 06:28] VITALS: BP 136/92; PULSE 99; RESP 18; TEMP 97.1; O2SAT 96
[2017-01-18] MEDS: HALOPERIDOL 10 MG TAB PO SCH ×3 (08:51→21:00)
[2017-01-18] MEDS: NICOTINE 21 MG/24 HR PATCH T-DERMAL SCH (08:51)
[2017-01-18] MEDS ORDERED: ASPIRIN 81 MG CHEW TAB PO SCH (09:00)
[2017-01-18] MEDS ORDERED: NIFEdipine 30 MG SUSTAINED RELEASE TAB PO SCH (09:00)
[2017-01-18] MEDS ORDERED: BENZTROPINE MESYLATE 1 MG TAB PO SCH (09:00)
[2017-01-18] MEDS ORDERED: ARIPiprazole 10 MG TAB PO SCH (09:00)
[2017-01-18] MEDS ORDERED: ALUMINUM/MAGNESIUM/SIMETH 30 ML CUP PO PRN (11:15)
[2017-01-18] MEDS ORDERED: ACETAMINOPHEN 325 MG TAB PO PRN (11:15)
[2017-01-18] MEDS ORDERED: MAGNESIUM HYDROXIDE SUSP 30 ML CUP PO PRN (11:15)
--- NOTE | 2017-01-18 11:34 | HHI.HP ---
Provisional Diagnosis Admission Date Jan 17, 2017 at 20:45 [place] I. Schizoaffective disorder bipolar type f 25.0 Certification of Person's Competence To Provide Express and Informed Consent I have personally examined Luis Daniel Desir , a person being served at [facility] [[email or web address]] on, Jan 18, 2017 11:18. Express and informed consent means consent voluntarily given in writing, by a competent person, after sufficient explanation and disclosure of the subject matter involved to enable the person to make a knowing and willful decision without any element of force, fraud, deceit, duress, or other form of constraint or coercion. This person is 18 years of age or older, is not now known to be incompetent to consent to treatment with a guardian advocate, and does not have a health care surrogate or proxy currently making medical treatment decisions. I have found this person to be one of the following: [] Competent to provide express and informed consent, as defined above, for voluntary admission to this facility and is competent to provide express and informed consent for treatment. He/she has the consistent capacity to make well reasoned, willful, and knowing decisions concerning his or her medical or mental health treatment. The person fully and consistently understands the purpose of the admission for examination/placement and is fully capable of personally exercising all rights assured [place] [] Incompetent to provide express and informed consent to voluntary admission, and this is incompetent to provide express and informed consent to treatment. The person must be transferred to involuntary status and a petition for a guardian advocate filed with the Circuit Court. [xx] Refusing to provide express and informed consent to voluntary admission but is competent to provide express and informed consent for treatment. The person must be discharged or transferred to involuntary status. Form shall be completed within 24 hours of a person's arrival at the receiving facility and filed in the clinical record of each person: 1. Admitted on a voluntary basis 2. Permitted to provide express and informed consent to his/her own treatment 3. Allowed to transfer from involuntary to voluntary status 4. Prior to permitting a person to consent to his or her own treatment after having been previously found incompetent to consent to treatment. History of Present Illness Capacity: Has Capacity (patient has capacity sign for medication, lacks capacity to sign for admission) HPI Patient is a 66-year-old white female well-known to us from multiple hospitalizations comes here under [facility] act signed by Dr. Wilver Rogers on 01/17/17 at 3:15 PM this certificate reviewed, essentially stating paranoid schizophrenia patient is acutely paranoid psychotic preoccupied with imaginary focus. This consultation occurred under visit [id number] visit from 01/16/17 to 01/17/17 with a diagnosis of hepatic encephalopathy. Patient was medically cleared yesterday evening and transferred to this unit. Of interest the patient was hospitalized here 12/27/16 to 01/02/17 under visit [id number] and released to [facility] he left there within 24 hours. Patient was readmitted to [facility] 01/03/17 through 01/09/17 under visit [id number] at that time he was also under my care and was reluctantly allowed to return home with home health care and assistance by neighbors. It appears this was unsuccessful leading to his marked deterioration in his physical health and the medical admission as mentioned above. At the present time patient sitting in a somewhat agitated state in his room nurse Roseanne and counselor Kailey present throughout session. Patient somewhat fidgety with very poor eye contact. He did recognize me from prior contact denies voices or visions of suicidality. He appears to have lost weight and is struggling somewhat with internal stimuli. He now states would be willing to go to a nursing home. He is vague about compliance with medication, vague about it is cooperation with the home health care referral. at the present time patient does meet criteria under the [facility] act for involuntary psychiatric hospitalization thus I will do first opinion requests second opinion. Though I do feel at this time he has capacity to sign for his medications. We have hospitalists consulting with us. Will recheck CMP and CBC with differential tomorrow to monitor patient's hepatic status Review of Systems ROS Limitations: Clinical Condition, Altered Mental Status Constitutional: DENIES: Diaphoretic episodes, Fatigue, Fever, Weight gain, Weight loss, Chills, Dizziness, Change in appetite, Night Sweats Endocrine: DENIES: Heat/cold intolerance, Polydipsia, Polyuria, Polyphagia Eyes: DENIES: Blurred vision, Diplopia, Eye inflammation, Eye pain, Vision loss , Photosensitivity, Double Vision Ears, nose, mouth, throat: DENIES: Tinnitus, Hearing loss, Vertigo, Nasal discharge, Oral lesions, Throat pain, Hoarseness, Ear Pain, Running Nose, Epistaxis, Sinus Pain, Toothache, Odynophagia Respiratory: DENIES: Apneas, Cough, Snoring, Wheezing, Hemoptysis, Sputum production, Shortness of breath Cardiovascular: DENIES: Chest pain, Palpitations, Syncope, Dyspnea on Exertion , PND, Lower Extremity Edema, Orthopnea, Claudication Gastrointestinal: DENIES: Abdominal pain, Black stools, Bloody stools, Constipation, Diarrhea, Nausea, Vomiting, Difficulty Swallowing, Anorexia Genitourinary: DENIES: Sexual dysfunction, Urinary frequency, Urinary incontinence, Urgency, Hematuria, Dysuria, Nocturia, Penile Discharge, Testicular Pain, Testicular Swelling Musculoskeletal: DENIES: Joint pain, Muscle aches, Stiffness, Joint Swelling, Back pain, Neck pain Integumentary: DENIES: Abnormal pigmentation, Nail changes, Pruritus, Rash Hematologic/lymphatic: DENIES: Bruising, Lymphadenopathy Immunologic/allergic: DENIES: Eczema, Urticaria Neurologic: DENIES: Abnormal gait, Headache, Localized weakness, Paresthesias, Seizures, Speech Problems, Tremor, Poor Balance Psychiatric: COMPLAINS OF: Anxiety, Depression Past Psych History Psychological trauma history Denies at this time Violence risk - others (6 mos) Low Violence risk - self (6 mos) Through self-neglect Substance Abuse History Drugs/Alcohol past 12 months Denies Past Family Social History Coded Allergies: No Known Allergies (Verified , 01/16/17) Per pt. Past Medical History Multiple see MedSurg Active Scripts Propranolol 10 Mg Tab10 Mg PO Q8H #90 TAB Prov:Rashaad Nuñez MD 01/17/17 Metoprolol Tartrate 25 Mg Tab75 Mg PO BID #60 TAB Prov:Rashaad Nuñez MD 01/17/17 Trazodone 50 Mg [id number] Mg PO HS #30 TAB Prov:Rashaad Nuñez MD 01/17/17 Aripiprazole 10 Mg Tab10 Mg PO DAILY #30 TAB Prov:Rashaad Nuñez MD 01/17/17 Atorvastatin 20 Mg Tab20 Mg PO HS #30 TAB Ref 0 Prov:Justin Ivy MD 01/09/17 Trazodone 50 Mg Tab50 Mg PO HS PRN (INSOMNIA) #15 TAB Ref 0 Prov:Justin Ivy MD 01/01/17 Nifedipine ER 24 HR 30 Mg Tab30 Mg PO DAILY #30 TAB Ref 0 Prov:Justin Ivy MD 01/01/17 Haloperidol 10 Mg Tab10 Mg PO BID #60 TAB Ref 0 Prov:Justin Ivy MD 01/01/17 Benztropine 1 Mg Tab1 Mg PO DAILY #30 TAB Ref 0 Prov:Justin Ivy MD 01/01/17 Atorvastatin (Lipitor)20 Mg Tab20 Mg PO HS #30 TAB Ref 0 Prov:Justin Ivy MD 01/01/17 Aspirin 81 Mg Tabdr81 Mg PO DAILY #30 TAB Prov:Andrew Elaine MD 12/18/16 Discontinued Scripts Aripiprazole 15 Mg Tab15 Mg PO BID #60 TAB Ref 0 Prov:Justin Ivy MD 01/09/17 Metoprolol Tartrate (Lopressor)50 Mg Tab75 Mg PO 1 1/2 po bid #45 TAB Ref 0 Prov:Justin Ivy MD 01/01/17 Trazodone 50 Mg Tab50 Mg PO HS PRN (INSOMNIA) #20 TAB Ref 0 Prov:Justin Ivy MD 01/09/17 Nifedipine ER 24 HR 30 Mg Tab30 Mg PO DAILY #30 TAB Ref 0 Prov:Justin Ivy MD 01/09/17 Metoprolol Tartrate (Lopressor)50 Mg Tab75 Mg PO 1 1/2 bid #45 TAB Ref 0 Prov:Justin Ivy MD 01/09/17 Haloperidol 10 Mg Tab10 Mg PO BID #60 TAB Ref 0 Prov:Justin Ivy MD 01/09/17 Benztropine 1 Mg Tab1 Mg PO DAILY #30 TAB Ref 0 Prov:Justin Ivy MD 01/09/[address] (Aspirin EC)81 Mg Tabdr81 Mg PO DAILY #30 TAB Ref 0 Prov:Justin Ivy MD 01/09/17 Aripiprazole 10 Mg Tab10 Mg PO BID #60 TAB Ref 0 Prov:Justin Ivy MD 01/01/17 Current Medications Medications (Trade) Dose Ordered Sig/Mesha Route Start Time Stop Time Status Last Admin (Ativan) 1 mg Q6H PRN PO 01/17/17 22:00 (Ativan Inj) 1 mg Q6H PRN IM 01/17/17 22:00 (Tylenol) 650 mg Q4H PRN PO 01/17/17 22:00 (Milk Of Magnesia Liq) 30 ml DAILY PRN PO 01/17/17 22:00 (Mag-Al Plus Susp Liq) 30 ml Q6H PRN PO 01/17/17 22:00 (Habitrol 21 Mg Patch.24 Hr) 1 patch DAILY T-DERMAL 01/18/17 09:00 Miscellaneous Information 1 HS T-DERMAL 01/18/17 21:00 (Abilify) 10 mg DAILY PO 01/18/17 09:00 01/18/17 08:51 (Inderal) 10 mg Q8HR PO 01/17/17 22:00 01/18/17 05:31 (Aspirin Chew) 81 mg DAILY PO 01/18/17 09:00 01/18/17 08:51 (Cogentin) 1 mg DAILY PO 01/18/17 09:00 01/18/17 08:51 (Desyrel) 100 mg HS PO 01/17/17 22:53 01/17/17 23:04 (Haldol) 10 mg BID PO 01/17/17 22:53 01/18/17 08:51 (Procardia Xl) 30 mg DAILY PO 01/18/17 09:00 01/18/17 08:51 Family History Denies Social History he lives by himself unable to care for self Patient's Strengths (min. 2) Patient verbal labile access healthcare Physical Exam [facility] assessments with visit [phone] old 530 Vital Signs Vital Signs Date Time Temp Pulse Resp B/P Pulse Ox O2 Delivery O2 Flow Rate FiO2 01/18/17 06:28 97.1 99 18 136/92 96 Mental Status Examination Patient markedly psychomotor retarded, with significant thought blocking and speech delays. The responses are fairly well goal oriented when they occur. He has very poor eye contact. Appearance Disheveled Speech: Hesitant, Slow, Other (appears to be thought blocking) Orientation: Person, Place Memory: Impaired (describe) Thought Process: Linear Thought Content: Unremarkable Language Marked delayed responses and Indonesian Fund of Knowledge Poor Hallucination Type: None (denies that appears to be responding to internal stimuli) Attention and Concentration: Other (poor) Suicidal Ideation: No (denies) Previous Suicide Attempts: No Homicidal Ideation: No (denies) Previous Homicide Attempts: No Affect: Other (marked decrease range and intensity) Mood: Other (markedly restricted mildly dysphoric) Motor Activity: Normal gait (use his walker will get PT referral) Assessment & Plan Problem List: (1) Schizoaffective disorder, bipolar type ICD Code: F25.0 Assessment & Plan Estimated LOS: 5-7 days patient remained psychotic, marked psychomotor retardation. Does meet criteria for involuntary psychiatric hospitalization. Placement may become problematic Discharge Planning To be determined Request HC Surrog/Guard Advoc?: No Justin Ivy MD Jan 18, 2017 11:34
[2017-01-18 11:35] VITALS: BP 164/97; PULSE 70
[2017-01-18] MEDS: THIAMINE HCL 100 MG TAB PO SCH (14:11)
--- NOTE | 2017-01-18 14:31 | PD.CONS ---
HPI Service [facility] Hospitalists Consult Requested By Psychiatric service Reason for Consult Medical management Primary Care Physician Rudi [facility] Diagnoses: History of Present Illness This is a 66-year-old male with past medical history of hypertension, atrial fibrillation, depression, schizophrenia, anxiety and HLD who is an inpatient at psychiatric facility and hospitalist services have been consulted for medical management. Patient was recently admitted 01/16/17 for toxic metabolic encephalopathy, levator cardiac enzymes, nontraumatic rhabdomyolysis, labile benign hypertension, transaminitis and elevated cardiac enzymes. Patient seen and examined today. Discussed with nursing staff who states patient is very unsteady. Patient denies any complaints of pain. He also denies any nausea/ vomiting, chills, cough, sore throat, chest pain, shortness of breath, abdominal pain, dysuria, diarrhea or constipation. Patient had a bowel movement about an hour ago. Review of Systems Except as stated in HPI: all other systems reviewed are Neg (10 point review of systems completed and all pertinence were negative except as stated in the history of present illness) Past Family Social History Allergies: Coded Allergies: No Known Allergies (Verified , 01/16/17) Per pt. Past Medical History Hypertension Atrial fibrillation Hyperlipidemia Schizophrenia Anxiety Depression Past Surgical History Eye surgery Reported Medications Propranolol 10 Mg Tab10 Mg PO Q8H #90 TAB Prov:Rashaad Nuñez MD 01/17/17 Metoprolol Tartrate 25 Mg Tab75 Mg PO BID #60 TAB Prov:Rashada Nuñez MD 01/17/17 Trazodone 50 Mg [id number] Mg PO HS #30 TAB Prov:Rashaad Nuñez MD 01/17/17 Aripiprazole 10 Mg Tab10 Mg PO DAILY #30 TAB Prov:Rashaad Nuñez MD 01/17/17 Atorvastatin 20 Mg Tab20 Mg PO HS #30 TAB Ref 0 Prov:Justin Ivy MD 01/09/17 Trazodone 50 Mg Tab50 Mg PO HS PRN (INSOMNIA) #15 TAB Ref 0 Prov:Justin Ivy MD 01/01/17 Nifedipine ER 24 HR 30 Mg Tab30 Mg PO DAILY #30 TAB Ref 0 Prov:Justin Ivy MD 01/01/17 Haloperidol 10 Mg Tab10 Mg PO BID #60 TAB Ref 0 Prov:Justin Ivy MD 01/01/17 Benztropine 1 Mg Tab1 Mg PO DAILY #30 TAB Ref 0 Prov:Justin Ivy MD 01/01/17 Atorvastatin (Lipitor)20 Mg Tab20 Mg PO HS #30 TAB Ref 0 Prov:Justin Ivy MD 01/01/17 Aspirin 81 Mg Tabdr81 Mg PO DAILY #30 TAB Prov:Andrew Elaine MD Active Ordered Medications Current Medications Medications (Trade) Dose Ordered Sig/Mesha Route Start Time Stop Time Status Last Admin (Ativan Inj) 1 mg Q6H PRN IM 01/17/17 22:00 (Habitrol 21 Mg Patch.24 Hr) 1 patch DAILY T-DERMAL 01/18/17 09:00 Miscellaneous Information 1 HS T-DERMAL 01/18/17 21:00 (Tylenol) 650 mg Q4H PRN PO 01/18/17 11:15 (Milk Of Magnesia Liq) 30 ml DAILY PRN PO 01/18/17 11:15 (Mag-Al Plus Susp Liq) 30 ml Q6H PRN PO 01/18/17 11:15 (Abilify) 10 mg DAILY PO 01/19/17 09:00 (Ecotrin Ec) 81 mg DAILY PO 01/19/17 09:00 (Lipitor) 20 mg HS PO 01/18/17 21:00 (Cogentin) 1 mg DAILY PO 01/19/17 09:00 (Haldol) 10 mg BID PO 01/18/17 21:00 (Lopressor) 75 mg BID PO 01/18/17 21:00 (Procardia Xl) 30 mg DAILY PO 01/19/17 09:00 (Inderal) 10 mg Q8H PO 01/18/17 12:00 01/18/17 11:36 (Desyrel) 100 mg HS PO 01/18/17 21:00 Family History Father had a previous [place] Social History Patient denies any tobacco, alcohol consumption or illicit drug use. Physical Exam Vital Signs Vital Signs Date Time Temp Pulse Resp B/P Pulse Ox O2 Delivery O2 Flow Rate FiO2 01/18/17 11:35 70 164/97 01/18/17 06:28 97.1 99 18 136/92 96 01/17/17 20:45 98.1 98 18 155/92 98 Physical Exam GENERAL: This is a well-nourished, well-developed patient, in no apparent distress. SKIN: No rashes, ecchymoses or lesions. Cool and dry. HEAD: Atraumatic. Normocephalic. No temporal or scalp tenderness. EYES: Pupils equal round and reactive. Extraocular motions intact. No scleral icterus. No injection or drainage. ENT: Nose without bleeding, purulent drainage or septal hematoma. Throat without erythema, tonsillar hypertrophy or exudate. Uvula midline. Airway patent. Dry mucous membranes NECK: Trachea midline. No JVD or lymphadenopathy. Supple, nontender, no meningeal signs. CARDIOVASCULAR: Regular rate and rhythm without murmurs, gallops, or rubs. RESPIRATORY: Clear to auscultation. Breath sounds equal bilaterally. No wheezes , rales, or rhonchi. GASTROINTESTINAL: Abdomen soft, non-tender, nondistended. No hepato-splenomegaly , or palpable masses. No guarding. MUSCULOSKELETAL: Extremities without clubbing, cyanosis. 1+ BLE edema. No joint tenderness, effusion, or edema noted. No calf tenderness. NEUROLOGICAL: Awake and alert. Patient able to move all 4 extremities. Delayed speech. Assessment and Plan Assessment and Plan 66-year-old male with past medical history of hypertension, atrial fibrillation , depression, schizophrenia, anxiety and HLD who is an inpatient at psychiatric facility and hospitalist services have been consulted for medical management. Schizophrenia - Management per psychiatric team Recent hospitalization for hepatic encephalopathy and rhabdomyolysis - encourage po intake - ammonia level was 24 on 01/16 - last CK 363 (highest was 1420) - monitor LFTs and kidney function - am labs ordered Transaminitis - secondary to above - improved - continue to monitor Thrombocytopenia - ? medication SE - obtain B12 level - am labs to monitor trend DVT prophylaxis: Patient ambulatory Written by Hyacinth Esteban PA-C acting as scribe for Dr. Loyola on 01/18/17 at 14:13. This note was transcribed by scribe [Hyacinth Esteban PA-C]. I, Dr. Domo Loyola personally performed the history, physical exam, and medical decision making; and confirmed the accuracy of the information in the transcribed note. Authenticated by Dr. Domo Loyola on 01/18/17 at 22:49. Hyacinth Esteban Jan 18, 2017 14:31 Domo Loyola MD Jan 18, 2017 22:49
[2017-01-18 18:01] VITALS: BP 102/58; PULSE 103; RESP 22; TEMP 98.2; O2SAT 96
[2017-01-18] MEDS: METOPROLOL TARTRATE 25 MG TAB PO SCH (20:44)
[2017-01-18] MEDS: traZODone HCL 50 MG TAB PO SCH ×2 (20:46→21:00)
[2017-01-18] MEDS: ATORVASTATIN 20 MG TAB PO SCH ×2 (20:46→21:00)
[2017-01-18] MEDS: REMOVE OLD NICOTINE PATCH T-DERMAL SCH (20:47)
[2017-01-18] MEDS ORDERED: ATORVASTATIN 20 MG TAB PO SCH (21:00)
[2017-01-19] MEDS: PROPRANOLOL HCL 10 MG TAB PO SCH ×3 (05:00→19:52)
[2017-01-19 06:44] VITALS: BP 162/84; PULSE 104; RESP 17; TEMP 98; O2SAT 97
[2017-01-19] MEDS: METOPROLOL TARTRATE 25 MG TAB PO SCH ×2 (08:56→19:51)
[2017-01-19] MEDS: THIAMINE HCL 100 MG TAB PO SCH (08:56)
[2017-01-19] MEDS: ASPIRIN EC 81 MG TABEC PO SCH (08:56)
[2017-01-19] MEDS: HALOPERIDOL 10 MG TAB PO SCH ×2 (08:57→19:52)
[2017-01-19] MEDS: NIFEdipine 30 MG SUSTAINED RELEASE TAB PO SCH (08:57)
[2017-01-19] MEDS: BENZTROPINE MESYLATE 1 MG TAB PO SCH (08:57)
[2017-01-19] MEDS: ARIPiprazole 10 MG TAB PO SCH (08:57)
[2017-01-19] MEDS: NICOTINE 21 MG/24 HR PATCH T-DERMAL SCH (09:00)
[2017-01-19 09:26] LABS: BASOPHIL # 0.1 TH/MM3 (0-0.2); BASOPHIL % 1.5 % (0.0-2.0); EOSINOPHIL # 0.2 TH/MM3 (0-0.4); EOSINOPHIL % 3.2 % (0.0-4.0); HEMATOCRIT 44.5 % (39.0-51.0); HEMO FLAGS DIFF FINAL; LYMPH % 23.2 % (9.0-44.0); LYMPHOCYTE # 1.5 TH/MM3 (1.0-4.8); MEAN CELL VOLUME 88.6 FL (80.0-100.0); MEAN CORPUSCULAR HEMOGLOBIN 28.4 PG (27.0-34.0); MONO % 8.7 % (0.0-8.0); NEUT % 63.4 % (16.0-70.0); PLATELET COUNT 145 TH/MM3 (150-450); RED BLOOD COUNT 5.03 MIL/MM3 (4.50-5.90); RED CELL DISTRIBUTION WIDTH 15.1 % (11.6-17.2); WHITE BLOOD COUNT 6.3 TH/MM3 (4.0-11.0)
[2017-01-19 10:11] LABS: ANION GAP 7 MEQ/L (5-15); AST (GOT) 45 U/L (15-37); BICARBONATE 26.3 MEQ/L (21.0-32.0); BLOOD UREA NITROGEN 20 MG/DL (7-18); CHLORIDE 109 MEQ/L (98-107); GLOMERULAR FILTRATION RATE 68 ML/MIN (>89); POTASSIUM 3.7 MEQ/L (3.5-5.1); SODIUM (NA) 142 MEQ/L (136-145)
[2017-01-19 10:38] LABS: ALKALINE PHOSPHATASE 74 U/L (45-117); ALT (GPT) 413 U/L (12-78); TOTAL BILIRUBIN ADULT 1.5 MG/DL (0.2-1.0)
[2017-01-19 11:00] VITALS: BP 164/97; PULSE 84; RESP 17; TEMP 94; O2SAT 99
--- NOTE | 2017-01-19 13:51 | HHI.PYPN ---
Subjective Remarks This is a request for second opinion. Patient was seen, case discussed with nursing, and admission note reviewed. Patient is difficult to engage and appears internally preoccupied. Affect is flat and he is hypoverbal. Per nursing he is not eating having skipped breakfast and ate 10% of his lunch. His compliant with his medications. Alert and oriented 2. Says he feels paranoid but denies hallucinations Objective Alert: Yes [place]: Person, Place Mood: Other ("little bit depressed.") Affect: Flat Memory Intact: Immediate (not formally tested) Hallucinations: Other (denies) Delusions: Yes Delusion Type: Paranoid (paranoia) Suicidal: Ideation (denies) Homicidal: Ideation (denies) Insight/Judgment Poor Labs Test 01/19/17 08:38 White Blood Count 6.3 TH/MM3 Red Blood Count 5.03 MIL/MM3 Hemoglobin 14.3 GM/DL Hematocrit 44.5 % Mean Corpuscular Volume 88.6 FL Mean Corpuscular Hemoglobin 28.4 PG Mean Corpuscular Hemoglobin 32.0 % Concent Red Cell Distribution Width 15.1 % Platelet Count 145 TH/MM3 Mean Platelet Volume 10.4 FL Neutrophils (%) (Auto) 63.4 % Lymphocytes (%) (Auto) 23.2 % Monocytes (%) (Auto) 8.7 % Eosinophils (%) (Auto) 3.2 % Basophils (%) (Auto) 1.5 % Neutrophils # (Auto) 4.0 TH/MM3 Lymphocytes # (Auto) 1.5 TH/MM3 Monocytes # (Auto) 0.6 TH/MM3 Eosinophils # (Auto) 0.2 TH/MM3 Basophils # (Auto) 0.1 TH/MM3 CBC Comment DIFF FINAL Differential Comment Sodium Level 142 MEQ/L Potassium Level 3.7 MEQ/L Chloride Level 109 MEQ/L Carbon Dioxide Level 26.3 MEQ/L Anion Gap 7 MEQ/L Blood Urea Nitrogen 20 MG/DL Creatinine 1.09 MG/DL Estimat Glomerular Filtration 68 ML/MIN Rate Random Glucose 114 MG/DL Calcium Level 8.9 MG/DL Total Bilirubin 1.5 MG/DL Aspartate Amino Transf 45 U/L (AST/SGOT) Alanine Aminotransferase 413 U/L (ALT/SGPT) Alkaline Phosphatase 74 U/L Total Protein 6.2 GM/DL Albumin 3.3 GM/DL Vitamin B12 Level 941 PG/ML Vitals/IOs Vital Signs Date Time Temp Pulse Resp B/P Pulse Ox O2 Delivery O2 Flow Rate FiO2 01/19/17 11:00 94.0 84 17 164/97 99 Assessment & Plan Problem List: (1) Schizoaffective disorder, bipolar type ICD Code: F25.0 Assessment & Plan I agree with first opinion to continue petition. Criteria include psychosis and confusion Justification for Cont. Inpt. Patient will decompensate in a less restrictive setting Request HC Surrog/Guard Advoc?: No Kurt Garcia DO Jan 19, 2017 13:51
[2017-01-19 18:00] VITALS: BP 167/96; PULSE 85; RESP 16; TEMP 98.2; O2SAT 98
[2017-01-19] MEDS: traZODone HCL 50 MG TAB PO SCH (19:51)
[2017-01-19] MEDS: ATORVASTATIN 20 MG TAB PO SCH (19:52)
[2017-01-19] MEDS: REMOVE OLD NICOTINE PATCH T-DERMAL SCH (21:00)
[2017-01-19] MEDS: LORazepam 2 MG/ML VIAL IM PRN (23:54)
[2017-01-20] MEDS: PROPRANOLOL HCL 10 MG TAB PO SCH ×3 (04:46→21:32)
[2017-01-20 05:05] VITALS: BP 130/88; PULSE 75; RESP 18; TEMP 98; O2SAT 98
[2017-01-20] MEDS: ARIPiprazole 10 MG TAB PO SCH (08:29)
[2017-01-20] MEDS: THIAMINE HCL 100 MG TAB PO SCH (08:29)
[2017-01-20] MEDS: HALOPERIDOL 10 MG TAB PO SCH ×2 (08:29→21:31)
[2017-01-20] MEDS: METOPROLOL TARTRATE 25 MG TAB PO SCH ×2 (08:29→21:32)
[2017-01-20] MEDS: BENZTROPINE MESYLATE 1 MG TAB PO SCH (08:29)
[2017-01-20] MEDS: NIFEdipine 30 MG SUSTAINED RELEASE TAB PO SCH (08:29)
[2017-01-20] MEDS: ASPIRIN EC 81 MG TABEC PO SCH (08:29)
[2017-01-20] MEDS: NICOTINE 21 MG/24 HR PATCH T-DERMAL SCH (09:00)
--- NOTE | 2017-01-20 13:11 | HHI.PYPN ---
Subjective Remarks Patient was seen and case discussed with nursing. Blood pressures of an elevated on occasion continues to be followed by the medical team. He is slightly brighter and more engaging today. He is eating well compared to yesterday. Mood continues to be "a little sad." Denies any hallucinations. Alert and oriented 3. However continues to be withdrawn Objective Alert: Yes [place]: Person, Place, Date Mood: Depressed Affect: Flat Memory Intact: Immediate (not formally tested) Hallucinations: Other (denies) Delusions: Yes Delusion Type: Paranoid (internally preoccupied) Suicidal: Ideation (denies) Homicidal: Ideation (denies) Insight/Judgment Poor Vitals/IOs Vital Signs Date Time Temp Pulse Resp B/P Pulse Ox O2 Delivery O2 Flow Rate FiO2 01/20/17 05:05 98.0 75 18 130/88 98 Assessment & Plan Problem List: (1) Schizoaffective disorder, bipolar type ICD Code: F25.0 Assessment & Plan Continue current treatment plan Justification for Cont. Inpt. Patient will decompensate in a less restrictive setting Request HC Surrog/Guard Advoc?: No Kurt Garcia DO Jan 20, 2017 13:11
--- NOTE | 2017-01-20 15:41 | HHI.PR ---
Subjective Remarks Follow-up on patient with hypertension, atrial fibrillation, depression, schizophrenia, anxiety and HLD. Patient seen and examined today. Patient is complaining of cough. Denies any sputum production. Denies any shortness of breath or chest pain. No fever or chills. Objective Vitals Vital Signs Date Time Temp Pulse Resp B/P Pulse Ox O2 Delivery O2 Flow Rate FiO2 01/20/17 05:05 98.0 75 18 130/88 98 01/19/17 18:00 98.2 85 16 167/96 98 Result Diagram: 01/19/1783701/19/17837 Objective Remarks GENERAL: This is a well-nourished, well-developed patient, in no apparent distress. Awake and alert. Ambulating in the common room. SKIN: Cool and dry. HEAD: Atraumatic. Normocephalic. EYES: Extraocular motions intact. CARDIOVASCULAR: Regular rate and rhythm without murmurs, gallops, or rubs. RESPIRATORY: Clear to auscultation. Breath sounds equal bilaterally. No wheezes , rales, or rhonchi. GASTROINTESTINAL: Abdomen soft, non-tender, nondistended. No hepato-splenomegaly , or palpable masses. No guarding. MUSCULOSKELETAL: Extremities without clubbing, cyanosis. 1+ BLE edema. No joint tenderness, effusion, or edema noted. No calf tenderness. NEUROLOGICAL: Awake and alert. Patient able to move all 4 extremities. Delayed speech. Medications and IVs Current Medications Medications (Trade) Dose Ordered Sig/Mesha Route Start Time Stop Time Status Last Admin (Ativan Inj) 1 mg Q6H PRN IM 01/17/17 22:00 01/19/17 23:54 (Habitrol 21 Mg Patch.24 Hr) 1 patch DAILY T-DERMAL 01/18/17 09:00 Miscellaneous Information 1 HS T-DERMAL 01/18/17 21:00 (Tylenol) 650 mg Q4H PRN PO 01/18/17 11:15 (Milk Of Magnesia Liq) 30 ml DAILY PRN PO 01/18/17 11:15 (Mag-Al Plus Susp Liq) 30 ml Q6H PRN PO 01/18/17 11:15 (Abilify) 10 mg DAILY PO 01/19/17 09:00 01/20/17 08:29 (Ecotrin Ec) 81 mg DAILY PO 01/19/17 09:00 01/20/17 08:29 (Lipitor) 20 mg HS PO 01/18/17 21:00 01/19/17 19:52 (Cogentin) 1 mg DAILY PO 01/19/17 09:00 01/20/17 08:29 (Haldol) 10 mg BID PO 01/18/17 21:00 01/20/17 08:29 (Lopressor) 75 mg BID PO 01/18/17 21:00 01/20/17 08:29 (Procardia Xl) 30 mg DAILY PO 01/19/17 09:00 01/20/17 08:29 (Inderal) 10 mg Q8H PO 01/18/17 12:00 01/20/17 12:24 (Desyrel) 100 mg HS PO 01/18/17 21:00 01/19/17 19:51 (Vitamin B1) 100 mg DAILY PO 01/18/17 14:15 01/20/17 08:29 A/P Assessment and Plan 66-year-old male with past medical history of hypertension, atrial fibrillation , depression, schizophrenia, anxiety and HLD who is an inpatient at psychiatric facility and hospitalist services have been consulted for medical management. Schizophrenia - Management per psychiatric team Recent hospitalization for hepatic encephalopathy and rhabdomyolysis - encourage po intake - ammonia level was 24 on 01/16 - last CK 363 (highest was 1420) - monitor LFTs and kidney function - am labs ordered Transaminitis - secondary to above - improving AST 351 -> 159 -> 45, ALT 1144 -> 743 -> 413 - continue to monitor Cough - CXR ordered - Vadim prn DVT prophylaxis: Patient ambulatory Discussed with patient, nursing staff and Hyacinth Garcia Jan 20, 2017 15:41
[2017-01-20] MEDS ORDERED: RESP: ALBUTEROL 2.5 MG/IPRATROPIUM 0.5 MG NEB (PRN) NEB (15:45)
[2017-01-20 19:19] VITALS: BP 114/59; PULSE 72; RESP 17; TEMP 97.5; O2SAT 99
[2017-01-20] MEDS: REMOVE OLD NICOTINE PATCH T-DERMAL SCH (21:00)
[2017-01-20] MEDS: ATORVASTATIN 20 MG TAB PO SCH (21:32)
[2017-01-20] MEDS: traZODone HCL 50 MG TAB PO SCH (21:32)
--- NOTE | 2017-01-20 22:01 | RADRPT ---
EXAM DATE/TIME: 01/20/2017 21:49 [place] COMPARISON: CHEST PA & LAT, October 28, 2015, 18:46. INDICATIONS : Cough. Congestion. MEDICAL HISTORY : None. SURGICAL HISTORY : None. ENCOUNTER: Initial ACUITY: 3 days PAIN SCORE: 6/10 LOCATION: Bilateral chest FINDINGS: PA and lateral views of the chest demonstrate the lungs to be symmetrically aerated without evidence of mass, infiltrate or effusion. The cardiomediastinal contours are unremarkable. Osseous structure s are intact. CONCLUSION: The lungs are clear. Josué Henning MD on January 20, 2017 at 21:59 Board Certified Radiologist. This report was verified electronically.
[2017-01-21] MEDS: PROPRANOLOL HCL 10 MG TAB PO SCH ×3 (04:00→21:07)
[2017-01-21 05:10] VITALS: BP 179/99; PULSE 71; RESP 17; TEMP 97.6; O2SAT 97
[2017-01-21] MEDS: METOPROLOL TARTRATE 25 MG TAB PO SCH ×2 (08:37→21:07)
[2017-01-21] MEDS: BENZTROPINE MESYLATE 1 MG TAB PO SCH (08:37)
[2017-01-21] MEDS: THIAMINE HCL 100 MG TAB PO SCH (08:37)
[2017-01-21] MEDS: HALOPERIDOL 10 MG TAB PO SCH ×2 (08:37→21:07)
[2017-01-21] MEDS: ASPIRIN EC 81 MG TABEC PO SCH (08:37)
[2017-01-21] MEDS: ARIPiprazole 10 MG TAB PO SCH (08:37)
[2017-01-21] MEDS: NIFEdipine 30 MG SUSTAINED RELEASE TAB PO SCH (08:37)
[2017-01-21] MEDS: NICOTINE 21 MG/24 HR PATCH T-DERMAL SCH (08:38)
[2017-01-21 09:29] LABS: ALKALINE PHOSPHATASE 69 U/L (45-117); ALT (GPT) 223 U/L (12-78); ANION GAP 5 MEQ/L (5-15); AST (GOT) 21 U/L (15-37); BLOOD UREA NITROGEN 19 MG/DL (7-18); CHLORIDE 110 MEQ/L (98-107); GLOMERULAR FILTRATION RATE 69 ML/MIN (>89); INDIRECT BILIRUBIN 0.6 MG/DL (0.0-0.8); POTASSIUM 3.9 MEQ/L (3.5-5.1); SODIUM (NA) 145 MEQ/L (136-145); TOTAL BILIRUBIN ADULT 0.8 MG/DL (0.2-1.0)
[2017-01-21 09:33] LABS: CREATINE KINASE 72 U/L (39-308)
[2017-01-21] MEDS: LORazepam 2 MG/ML VIAL IM PRN (09:38)
[2017-01-21 09:55] VITALS: BP 134/92
--- NOTE | 2017-01-21 12:18 | HHI.PYPN ---
Subjective Remarks Pt seen and discussed with staff. Staff report that he was disorganized and agitated with staff this morning and received ativan x1 dose which calmed pt. He has been sleeping most of morning but arouses for interview. He denies SI/ HI. He is compliant with medication and denies side effects. Objective Alert: Yes [place]: Person, Place, Date Mood: Depressed Affect: Flat Memory Intact: Comment (fair) Hallucinations: Other (none) Delusions: Yes Delusion Type: Paranoid Suicidal: Ideation (denies) Homicidal: Ideation (denies) Insight/Judgment poor Labs Test 01/21/17 08:15 Sodium Level 145 MEQ/L Potassium Level 3.9 MEQ/L Chloride Level 110 MEQ/L Carbon Dioxide Level 30.0 MEQ/L Anion Gap 5 MEQ/L Blood Urea Nitrogen 19 MG/DL Creatinine 1.08 MG/DL Estimat Glomerular Filtration 69 ML/MIN Rate Random Glucose 86 MG/DL Calcium Level 8.4 MG/DL Total Bilirubin 0.8 MG/DL Direct Bilirubin 0.2 MG/DL Indirect Bilirubin 0.6 MG/DL Aspartate Amino Transf 21 U/L (AST/SGOT) Alanine Aminotransferase 223 U/L (ALT/SGPT) Alkaline Phosphatase 69 U/L Total Creatine Kinase 72 U/L Total Protein 5.5 GM/DL Albumin 2.7 GM/DL Vitals/IOs Vital Signs Date Time Temp Pulse Resp B/P Pulse Ox O2 Delivery O2 Flow Rate FiO2 01/21/17 09:55 134/92 01/21/17 05:10 97.6 71 17 97 Assessment & Plan Problem List: (1) Schizoaffective disorder, bipolar type ICD Code: F25.0 Assessment & Plan Continue current tx plan. Estimated LOS: days Justification for Cont. Inpt. impairments in reality construction Request HC Surrog/Guard Advoc?: Ashley Ayala MD Jan 21, 2017 12:18
[2017-01-21 18:00] VITALS: BP 124/75; PULSE 78; RESP 16; TEMP 99.7; O2SAT 97
[2017-01-21] MEDS: REMOVE OLD NICOTINE PATCH T-DERMAL SCH (21:00)
[2017-01-21] MEDS: traZODone HCL 50 MG TAB PO SCH (21:00)
[2017-01-21] MEDS: ATORVASTATIN 20 MG TAB PO SCH (21:07)
[2017-01-22] MEDS: PROPRANOLOL HCL 10 MG TAB PO SCH ×4 (03:53→20:49)
[2017-01-22 06:26] VITALS: BP 124/74; PULSE 79; RESP 18; TEMP 97.9
[2017-01-22] MEDS: NICOTINE 21 MG/24 HR PATCH T-DERMAL SCH (09:00)
[2017-01-22] MEDS: METOPROLOL TARTRATE 25 MG TAB PO SCH ×2 (09:06→20:50)
[2017-01-22] MEDS: HALOPERIDOL 10 MG TAB PO SCH ×2 (09:06→21:00)
[2017-01-22] MEDS: BENZTROPINE MESYLATE 1 MG TAB PO SCH (09:06)
[2017-01-22] MEDS: ASPIRIN EC 81 MG TABEC PO SCH (09:06)
[2017-01-22] MEDS: ARIPiprazole 10 MG TAB PO SCH (09:06)
[2017-01-22] MEDS: NIFEdipine 30 MG SUSTAINED RELEASE TAB PO SCH (09:06)
[2017-01-22] MEDS: THIAMINE HCL 100 MG TAB PO SCH (09:07)
--- NOTE | 2017-01-22 14:14 | HHI.PYPN ---
Subjective Remarks Patient remains very disorganized, impulsive, intrusive and emotionally labile. He is easily confused and unable to care for himself. He does not understand the staffs [place] attempting to care for him. Review of Systems ROS Limitations: Clinical Condition Objective Alert: Yes [place]: Person, Place, Date Mood: Depressed Affect: Flat Memory Intact: Comment (fair) Hallucinations: Other (none) Delusions: Yes Delusion Type: Paranoid Suicidal: Ideation (denies) Homicidal: Ideation (denies) Insight/Judgment Impaired. Vitals/IOs Vital Signs Date Time Temp Pulse Resp B/P Pulse Ox O2 Delivery O2 Flow Rate FiO2 01/22/17 06:26 97.9 79 18 124/74 01/21/17 18:00 97 Assessment & Plan Problem List: (1) Schizoaffective disorder, bipolar type ICD Code: F25.0 Assessment & Plan Estimated LOS: 7 days patient continues to require more time on current psychotropic medicines. He is still not stable with regard to emotional and behavioral context. Justification for Cont. Inpt. Likely did decompensate at a lower level of care. Request HC Surrog/Guard Advoc?: No Andrew Elaine MD Jan 22, 2017 14:14
[2017-01-22 20:00] VITALS: BP 133/96; PULSE 97; RESP 18; TEMP 97.9
[2017-01-22] MEDS: ATORVASTATIN 20 MG TAB PO SCH (20:50)
[2017-01-22] MEDS: traZODone HCL 50 MG TAB PO SCH (20:51)
[2017-01-22] MEDS: REMOVE OLD NICOTINE PATCH T-DERMAL SCH (21:00)
[2017-01-22] MEDS: LORazepam 2 MG/ML VIAL IM PRN (23:34)
[2017-01-23] MEDS: PROPRANOLOL HCL 10 MG TAB PO SCH ×3 (04:00→20:34)
[2017-01-23 05:47] VITALS: BP 140/84; PULSE 72
[2017-01-23] MEDS: BENZTROPINE MESYLATE 1 MG TAB PO SCH (08:34)
[2017-01-23] MEDS: THIAMINE HCL 100 MG TAB PO SCH (08:34)
[2017-01-23] MEDS: ARIPiprazole 10 MG TAB PO SCH (08:34)
[2017-01-23] MEDS: HALOPERIDOL 10 MG TAB PO SCH ×2 (08:34→20:31)
[2017-01-23] MEDS: ASPIRIN EC 81 MG TABEC PO SCH (08:35)
[2017-01-23] MEDS: NIFEdipine 30 MG SUSTAINED RELEASE TAB PO SCH (08:35)
[2017-01-23] MEDS: METOPROLOL TARTRATE 25 MG TAB PO SCH ×2 (08:35→20:31)
[2017-01-23] MEDS: NICOTINE 21 MG/24 HR PATCH T-DERMAL SCH (08:35)
--- NOTE | 2017-01-23 16:02 | HHI.PR ---
Subjective Remarks Follow-up on patient with hypertension, atrial fibrillation, depression, schizophrenia, anxiety and HLD. Patient seen and examined today. Reports he is doing well. Continues to have bilateral lower extremity edema, not worsening. Denies pain and discomfort. Denies SOB/ dyspnea. Denies chest pain , palpitations, headaches, dizziness. Denies fevers, chills, n/v/d. Objective Vitals Vital Signs Date Time Temp Pulse Resp B/P Pulse Ox O2 Delivery O2 Flow Rate FiO2 01/23/17 05:47 72 140/84 01/22/17 20:00 97.9 97 18 133/96 Result Diagram: 01/19/17 0838 01/21/17 0815 Imaging Last Impressions Chest X-Ray 01/20/17 0000 Signed Impressions: Service Date/Time: Friday, January 20, 2017 21:49 - CONCLUSION: The lungs are clear. Josué Henning MD Objective Remarks GENERAL: This is a well-nourished, well-developed patient, in no apparent distress. HEENT: Normocephalic. Pupils equal round and reactive. Nose without bleeding. Airway patent. NECK: Trachea midline. No JVD. Supple. CARDIOVASCULAR: Regular rate and rhythm without murmurs, gallops, or rubs. RESPIRATORY: Clear to auscultation. Breath sounds equal bilaterally. No wheezes , rales, or rhonchi. GASTROINTESTINAL: Abdomen soft, non-tender, nondistended. Bowel Sounds normoactive x4. MUSCULOSKELETAL: Extremities without clubbing, cyanosis, bilateral lower extremity +1 edema. NEUROLOGICAL: Awake and alert. Flat affect. No focal neuro deficit. MANUEL. Normal speech. A/P Problem List: (1) Schizoaffective disorder, bipolar type ICD Code: F25.0 Status: Chronic (2) Tobacco abuse ICD Code: Z72.0 Status: Chronic (3) Transaminitis ICD Code: R74.0 Status: Acute (4) Hypertension ICD Code: I10 Status: Chronic Assessment and Plan 66-year-old male with past medical history of hypertension, atrial fibrillation , depression, schizophrenia, anxiety and HLD who is an inpatient at psychiatric facility and hospitalist services have been consulted for medical management. Schizophrenia - Management per psychiatric team Recent hospitalization for hepatic encephalopathy and rhabdomyolysis - encourage po intake - ammonia level was 24 on 01/16 - last CK 363 (highest was 1420) - monitor LFTs and kidney function Transaminitis - secondary to above - Negative hepatitis panel - improving AST 351 -> 159 -> 45, ALT 1144 -> 743 -> 413 --> 223 - continue to monitor Cough - CXR ordered - Duonebs prn HTN - Continue with metoprolol 75 mg twice a day - Nifedipine 30 mg daily A. fib, rate controlled - ASA 81 mg - Nifedipine, metoprolol Bilateral lower extremity edema - Bilateral YADIRA hose - Leg elevation at rest DVT prophylaxis: Patient ambulatory Discussed with patient, nursing Stable from Hospitalist standpoint. We will sign off. Reconsult as needed. Written by Shaji Krause, acting as scribe for Dr. Hayward on 01/23/17 at 16: 00. This note was transcribed by scribe [ANDRÉS Hawthorne]. I, Dr. Kate Hayward personally performed the history, physical exam, and medical decision making; and confirmed the accuracy of the information in the transcribed note. Authenticated by Dr. Kate Hayward on 01/23/17 at 17:10. Shaji Sheridan Jan 23, 2017 16:02 Kate Hayward MD Jan 23, 2017 17:10
[2017-01-23 18:39] VITALS: BP 118/58; PULSE 80; RESP 16; TEMP 97.9; O2SAT 98
[2017-01-23] MEDS: traZODone HCL 50 MG TAB PO SCH (20:30)
[2017-01-23] MEDS: ATORVASTATIN 20 MG TAB PO SCH (20:30)
[2017-01-23] MEDS: REMOVE OLD NICOTINE PATCH T-DERMAL SCH (20:37)
[2017-01-24] MEDS: PROPRANOLOL HCL 10 MG TAB PO SCH ×3 (04:13→20:11)
[2017-01-24 06:15] VITALS: BP 152/98; PULSE 81; RESP 18; TEMP 97.4; O2SAT 97
[2017-01-24] MEDS: HALOPERIDOL 10 MG TAB PO SCH ×2 (08:36→21:15)
[2017-01-24] MEDS: ASPIRIN EC 81 MG TABEC PO SCH (08:37)
[2017-01-24] MEDS: BENZTROPINE MESYLATE 1 MG TAB PO SCH (08:37)
[2017-01-24] MEDS: METOPROLOL TARTRATE 25 MG TAB PO SCH ×2 (08:37→21:15)
[2017-01-24] MEDS: THIAMINE HCL 100 MG TAB PO SCH (08:37)
[2017-01-24] MEDS: ARIPiprazole 10 MG TAB PO SCH (08:37)
[2017-01-24] MEDS: NICOTINE 21 MG/24 HR PATCH T-DERMAL SCH (08:37)
[2017-01-24] MEDS: NIFEdipine 30 MG SUSTAINED RELEASE TAB PO SCH (10:42)
--- NOTE | 2017-01-24 12:40 | HHI.PYPN ---
Subjective Remarks This is a psychiatric progress note for 01/23/2017. Patient remains incoherent with loose associations, tangentiality and circumstantiality. He does not have a good plan to care for himself. He has markedly impaired insight and judgment. He has been hospitalized approximately 20 times. This physician feels he is a good candidate for long-acting injectable antipsychotic medicine. Review of Systems ROS Limitations: Clinical Condition Except as stated in HPI: all other systems reviewed are Neg Objective Alert: Yes [place]: Person, Place, Date Mood: Depressed Affect: Flat Memory Intact: Comment (fair) Hallucinations: Other (none) Delusions: Yes Delusion Type: Paranoid Suicidal: Ideation (denies) Homicidal: Ideation (denies) Insight/Judgment Impaired Vitals/IOs Vital Signs Date Time Temp Pulse Resp B/P Pulse Ox O2 Delivery O2 Flow Rate FiO2 01/24/17 06:15 97.4 81 18 152/98 97 Assessment & Plan Problem List: (1) Schizoaffective disorder, bipolar type ICD Code: F25.0 Assessment & Plan Estimated LOS: [address] Ivy wants patient to go to [facility]. This physician acknowledges the patient is unable to care for himself and has decompensated multiple times as an outpatient. Justification for Cont. Inpt. Patient likely to decompensate at lower level of care. Request HC Surrog/Guard Advoc?: No Andrew Elaine MD Jan 24, 2017 12:40
--- NOTE | 2017-01-24 15:07 | HHI.PYPN ---
Subjective Remarks Patient seen and examined. Patient has been transferred to the geropsychiatry unit, and I am assuming care of the patient. Chart reviewed. Case discussed with nursing staff. On my examination today, the patient displays significant thought blocking. He denies any suicidal or homicidal ideation. He appears internally preoccupied. Denies side effects from medications. No physical complaints. Review of Systems ROS Limitations: Psychotic, Poor Historian Except as stated in HPI: all other systems reviewed are Neg Objective Alert: Yes [place]: Person, Place, Date Mood: Calm Affect: Flat Memory Intact: Comment (not formally assessed) Hallucinations: Other (appears internally preoccupied) Delusions: No Delusion Type: Other (no delusions) Suicidal: Ideation (denies suicidal ideation) Homicidal: Ideation (denies homicidal ideation) Insight/Judgment Poor Remarks Thought process disorganized. Thought blocking present. Speech somewhat rambling. Grooming and hygiene fair. Labs Labs reviewed. Vitals/IOs Vital Signs Date Time Temp Pulse Resp B/P Pulse Ox O2 Delivery O2 Flow Rate FiO2 01/24/17 06:15 97.4 81 18 152/98 97 Assessment & Plan Problem List: (1) Schizoaffective disorder, bipolar type ICD Code: F25.0 Assessment & Plan Continue Abilify and Haldol as ordered. Could consider adjusting psychotropic medications to target psychosis, but I would like to get a better sense of any day-to-day variations before making significant medication changes. Hospitalist business system consultant input noted and appreciated. Continue to monitor on the inpatient unit. Continue other medications and care as ordered. Dr. Elaine presented the patient to the [facility], and the patient was retained on the unit by the security patrol officer. Justification for Cont. Inpt. Impairment in reality construction. High risk for decompensation and a less restrictive environment. Discharge Planning I see that the existing plan is for [facility] referral. Request HC Surrog/Guard Advoc?: No Lee Stanley MD Jan 24, 2017 15:07
[2017-01-24 18:44] VITALS: BP 180/90; PULSE 84; RESP 21; TEMP 98; O2SAT 100
[2017-01-24] MEDS: REMOVE OLD NICOTINE PATCH T-DERMAL SCH (21:00)
[2017-01-24] MEDS: traZODone HCL 50 MG TAB PO SCH (21:15)
[2017-01-24] MEDS: ATORVASTATIN 20 MG TAB PO SCH (21:15)
[2017-01-25] MEDS: PROPRANOLOL HCL 10 MG TAB PO SCH ×3 (04:30→20:42)
[2017-01-25 06:16] VITALS: BP 144/85; PULSE 76; RESP 16; TEMP 97.4; O2SAT 97
[2017-01-25] MEDS: THIAMINE HCL 100 MG TAB PO SCH (08:10)
[2017-01-25] MEDS: BENZTROPINE MESYLATE 1 MG TAB PO SCH (08:11)
[2017-01-25] MEDS: ASPIRIN EC 81 MG TABEC PO SCH (08:11)
[2017-01-25] MEDS: METOPROLOL TARTRATE 25 MG TAB PO SCH ×2 (08:11→22:07)
[2017-01-25] MEDS: HALOPERIDOL 10 MG TAB PO SCH ×2 (08:11→22:07)
[2017-01-25] MEDS: ARIPiprazole 10 MG TAB PO SCH (08:14)
[2017-01-25] MEDS: NIFEdipine 30 MG SUSTAINED RELEASE TAB PO SCH (08:14)
[2017-01-25] MEDS: NICOTINE 21 MG/24 HR PATCH T-DERMAL SCH (09:00)
--- NOTE | 2017-01-25 14:46 | HHI.PYPN ---
Subjective Remarks Patient seen and examined. Chart reviewed. Case discussed with nursing staff. On my examination today, patient displays poor eye contact. He has prominent thought blocking which limits her ability to conduct the interview. He denies AVH. No SI or HI voiced. Denies side effects from medications. No reported physical complaints. Review of Systems ROS Limitations: Poor Historian Except as stated in HPI: all other systems reviewed are Neg Objective Alert: Yes [place]: Person, Place (at least) Mood: Calm Affect: Flat Memory Intact: Comment (not assessed) Hallucinations: Other (denies AVH) Delusions: No Delusion Type: Other (no delusions) Suicidal: Ideation (no SI) Homicidal: Ideation (no HI) Insight/Judgment Poor Remarks No motor abnormalities noted. Thought process slow with significant thought blocking. Grooming and hygiene fair. Labs Labs reviewed. Vitals/IOs Vital Signs Date Time Temp Pulse Resp B/P Pulse Ox O2 Delivery O2 Flow Rate FiO2 01/25/17 06:16 97.4 76 16 144/85 97 Assessment & Plan Problem List: (1) Schizoaffective disorder, bipolar type ICD Code: F25.0 Assessment & Plan Titrate Abilify to 15 mg to target ongoing psychotic symptoms. Continue Haldol as ordered. Continue other medications and care as ordered. Continue to monitor on the inpatient unit. Justification for Cont. Inpt. Impairment in reality construction. Medication changes in process. High risk for decompensation in a less restrictive environment. Discharge Planning Plan presently is for [facility] referral. Counselor informs me that the patient's state packet was sent yesterday. Request HC Surrog/Guard Advoc?: No Lee Stanley MD Jan 25, 2017 14:46
[2017-01-25 18:00] VITALS: BP 162/97; PULSE 85; RESP 19; TEMP 97.1; O2SAT 98
[2017-01-25] MEDS: REMOVE OLD NICOTINE PATCH T-DERMAL SCH (21:00)
[2017-01-25] MEDS: ATORVASTATIN 20 MG TAB PO SCH (22:07)
[2017-01-25] MEDS: traZODone HCL 50 MG TAB PO SCH (22:07)
[2017-01-26] MEDS: PROPRANOLOL HCL 10 MG TAB PO SCH ×3 (04:44→19:29)
[2017-01-26 06:25] VITALS: BP 139/81; PULSE 75; RESP 18; TEMP 98.6; O2SAT 98
[2017-01-26] MEDS: NIFEdipine 30 MG SUSTAINED RELEASE TAB PO SCH (08:43)
[2017-01-26] MEDS: ASPIRIN EC 81 MG TABEC PO SCH (08:44)
[2017-01-26] MEDS: METOPROLOL TARTRATE 25 MG TAB PO SCH ×2 (08:44→21:10)
[2017-01-26] MEDS: THIAMINE HCL 100 MG TAB PO SCH (08:44)
[2017-01-26] MEDS: ARIPiprazole 15 MG TAB PO SCH (08:44)
[2017-01-26] MEDS: BENZTROPINE MESYLATE 1 MG TAB PO SCH (08:44)
[2017-01-26] MEDS: NICOTINE 21 MG/24 HR PATCH T-DERMAL SCH (08:44)
[2017-01-26] MEDS: HALOPERIDOL 10 MG TAB PO SCH ×2 (08:44→21:10)
--- NOTE | 2017-01-26 11:34 | HHI.PYPN ---
Subjective Remarks Pt seen and discussed with staff. He has been isolative to his room. RN reports that pt is compliant but very paranoid about meds. Thought blocking is prominent and pt gets increasingly anxious as interview progresses. No SI/HI. Objective Alert: Yes [place]: Person, Place Mood: Calm Affect: Flat Memory Intact: Comment (fair) Hallucinations: Other (denies AVH) Delusions: No Delusion Type: Other (no delusions) Suicidal: Ideation (no SI) Homicidal: Ideation (no HI) Insight/Judgment poor Vitals/IOs Vital Signs Date Time Temp Pulse Resp B/P Pulse Ox O2 Delivery O2 Flow Rate FiO2 01/26/17 06:25 98.6 75 18 139/81 98 Intake and Output 01/25/17 01/25/17 01/26/17 08:00 16:00 00:00 Intake Total 360 ml Balance 360 ml Assessment & Plan Problem List: (1) Schizoaffective disorder, bipolar type ICD Code: F25.0 Assessment & Plan Continue current tx plan. Estimated LOS: days Justification for Cont. Inpt. impairments in reality construction and self care. Request HC Surrog/Guard Advoc?: No Ashley Damon MD Jan 26, 2017 11:34
[2017-01-26 18:10] VITALS: BP 141/83; PULSE 53; RESP 16; TEMP 98.3; O2SAT 97
[2017-01-26] MEDS: REMOVE OLD NICOTINE PATCH T-DERMAL SCH (21:00)
[2017-01-26] MEDS: traZODone HCL 50 MG TAB PO SCH (21:10)
[2017-01-26] MEDS: ATORVASTATIN 20 MG TAB PO SCH (21:10)
[2017-01-27] MEDS: PROPRANOLOL HCL 10 MG TAB PO SCH ×3 (04:18→20:00)
[2017-01-27 05:39] VITALS: BP 164/107; PULSE 85; TEMP 98.2; O2SAT 96
[2017-01-27] MEDS: NIFEdipine 30 MG SUSTAINED RELEASE TAB PO SCH (08:31)
[2017-01-27] MEDS: HALOPERIDOL 10 MG TAB PO SCH ×2 (08:31→20:19)
[2017-01-27] MEDS: ARIPiprazole 15 MG TAB PO SCH (08:31)
[2017-01-27] MEDS: THIAMINE HCL 100 MG TAB PO SCH (08:31)
[2017-01-27] MEDS: BENZTROPINE MESYLATE 1 MG TAB PO SCH (08:32)
[2017-01-27] MEDS: ASPIRIN EC 81 MG TABEC PO SCH (08:32)
[2017-01-27] MEDS: METOPROLOL TARTRATE 25 MG TAB PO SCH ×2 (08:32→20:20)
[2017-01-27] MEDS: NICOTINE 21 MG/24 HR PATCH T-DERMAL SCH (08:38)
--- NOTE | 2017-01-27 12:30 | HHI.PYPN ---
Subjective Remarks Pt seen and discussed with staff. He has been compliant with medications but remains paranoid and suspicious. Thought blocking has lessened. No agitation or aggression. No SI/HI. Objective Alert: Yes [place]: Person, Place Mood: Calm Affect: Flat Memory Intact: Comment (fair) Hallucinations: Other (denies AVH) Delusions: Yes Delusion Type: Paranoid Suicidal: Ideation (no SI) Homicidal: Ideation (no HI) Insight/Judgment poor Vitals/IOs Vital Signs Date Time Temp Pulse Resp B/P Pulse Ox O2 Delivery O2 Flow Rate FiO2 01/27/17 05:39 98.2 85 164/107 96 01/26/17 18:10 16 Intake and Output 01/26/17 01/26/17 01/27/17 08:00 16:00 00:00 Intake Total 1680 ml Balance 1680 ml Assessment & Plan Problem List: (1) Schizoaffective disorder, bipolar type ICD Code: F25.0 Assessment & Plan Continue current tx plan. Estimated LOS: days Justification for Cont. Inpt. impairments in reality testing and self care. Request HC Surrog/Guard Advoc?: Ashley Ayala MD Jan 27, 2017 12:30
[2017-01-27 12:59] VITALS: BP 122/71; PULSE 91
[2017-01-27 19:27] VITALS: BP 97/62; PULSE 80; RESP 16; TEMP 98
[2017-01-27] MEDS: traZODone HCL 50 MG TAB PO SCH (20:19)
[2017-01-27] MEDS: ATORVASTATIN 20 MG TAB PO SCH (20:19)
[2017-01-27] MEDS: REMOVE OLD NICOTINE PATCH T-DERMAL SCH (20:20)
[2017-01-28] MEDS: PROPRANOLOL HCL 10 MG TAB PO SCH ×3 (03:36→21:12)
[2017-01-28 05:47] VITALS: BP 119/85; PULSE 70; RESP 18; TEMP 97.3; O2SAT 98
[2017-01-28 06:00] VITALS: BP 119/85; PULSE 70; RESP 18; TEMP 97.3; O2SAT 98
[2017-01-28] MEDS: NICOTINE 21 MG/24 HR PATCH T-DERMAL SCH (09:00)
[2017-01-28] MEDS: HALOPERIDOL 10 MG TAB PO SCH (09:00)
[2017-01-28] MEDS: THIAMINE HCL 100 MG TAB PO SCH (09:00)
[2017-01-28] MEDS: BENZTROPINE MESYLATE 1 MG TAB PO SCH (09:00)
[2017-01-28] MEDS: ASPIRIN EC 81 MG TABEC PO SCH (09:00)
[2017-01-28] MEDS: METOPROLOL TARTRATE 25 MG TAB PO SCH ×2 (09:00→21:13)
[2017-01-28] MEDS: NIFEdipine 30 MG SUSTAINED RELEASE TAB PO SCH (09:27)
[2017-01-28] MEDS: ARIPiprazole 15 MG TAB PO SCH (09:27)
--- NOTE | 2017-01-28 11:35 | HHI.PYPN ---
Subjective Remarks Patient seen and examined. Chart reviewed. Case discussed with nursing staff reports patient is somewhat seclusive to room with ongoing paranoia. On my examination today, the patient describes his weekend as "a little rough. I had the opportunity to make friends, but it fell through." Thought blocking is considerably attenuated today. Thoughts do remain somewhat disorganized though , and he notes "if I can remain linear with you, I would like to coordinate, and I don't have any stuff, and the only ones I have down here are Jeremie and Bruno , but the thing is I violated a moral code there is a pic floating around of me with the goods." Patient is here alluding to some sort of compromising photograph. The bottom line of this narrative is that he would like to return home to [place]. No SI or HI. Denies side effects from medications. Review of Systems ROS Limitations: Psychotic, Poor Historian Except as stated in HPI: all other systems reviewed are Neg Objective Alert: Yes [place]: Person, Place Mood: Calm Affect: Flat (remains fairly flat) Memory Intact: Comment (fair) Hallucinations: Other (denies AVH) Delusions: Yes Delusion Type: Paranoid (some ongoing paranoia) Suicidal: Ideation (no SI) Homicidal: Ideation (no HI) Insight/Judgment Poor Remarks No motor abnormalities noted. Thought blocking improved with thought disorganization continues. Speech somewhat rambling and difficult to follow. Grooming and hygiene fair. Labs Labs reviewed. Vitals/IOs Vital Signs Date Time Temp Pulse Resp B/P Pulse Ox O2 Delivery O2 Flow Rate FiO2 01/28/17 06:00 97.3 70 18 119/85 98 Intake and Output 01/27/17 01/27/17 01/28/17 08:00 16:00 00:00 Intake Total 720 ml Balance 720 ml Assessment & Plan Problem List: (1) Schizoaffective disorder, bipolar type ICD Code: F25.0 Assessment & Plan Patient seems to have had a positive response to Abilify. Titrate Abilify to 20 mg daily and taper Haldol somewhat to 7.5 mg twice daily. Check a CMP in the morning to trend GFR and alkaline phosphatase. Continue to monitor on the inpatient unit. Continue other medications and care as ordered. Justification for Cont. Inpt. High risk for decompensation in a less restrictive environment. Discharge Planning [facility] psychiatric hospital referral. Could perhaps consider alternative disposition plans if the patient continues to improve from a psychiatric standpoint. Request HC Surrog/Guard Advoc?: No Lee Stanley MD January 28, 2017 11:34
[2017-01-28 18:00] VITALS: BP 154/89; PULSE 76; RESP 18; TEMP 97.5; O2SAT 98
[2017-01-28] MEDS: REMOVE OLD NICOTINE PATCH T-DERMAL SCH (21:00)
[2017-01-28] MEDS: ATORVASTATIN 20 MG TAB PO SCH (21:12)
[2017-01-28] MEDS: HALOPERIDOL 5 MG TAB PO SCH (21:12)
[2017-01-28] MEDS: traZODone HCL 50 MG TAB PO SCH (21:13)
[2017-01-29] MEDS: PROPRANOLOL HCL 10 MG TAB PO SCH ×3 (04:07→20:00)
[2017-01-29 06:00] VITALS: BP 118/78; PULSE 61; RESP 16; O2SAT 98
[2017-01-29 07:52] LABS: ALT (GPT) 46 U/L (12-78); ANION GAP 3 MEQ/L (5-15); AST (GOT) 11 U/L (15-37); BICARBONATE 31.7 MEQ/L (21.0-32.0); BLOOD UREA NITROGEN 18 MG/DL (7-18); CHLORIDE 112 MEQ/L (98-107); GLOMERULAR FILTRATION RATE 64 ML/MIN (>89); POTASSIUM 4.1 MEQ/L (3.5-5.1); SODIUM (NA) 147 MEQ/L (136-145)
[2017-01-29 07:55] LABS: ALKALINE PHOSPHATASE 70 U/L (45-117); TOTAL BILIRUBIN ADULT 0.4 MG/DL (0.2-1.0)
[2017-01-29] MEDS: METOPROLOL TARTRATE 25 MG TAB PO SCH ×2 (08:38→20:31)
[2017-01-29] MEDS: ASPIRIN EC 81 MG TABEC PO SCH (08:39)
[2017-01-29] MEDS: BENZTROPINE MESYLATE 1 MG TAB PO SCH (08:39)
[2017-01-29] MEDS: NIFEdipine 30 MG SUSTAINED RELEASE TAB PO SCH (08:39)
[2017-01-29] MEDS: HALOPERIDOL 5 MG TAB PO SCH ×2 (08:39→20:30)
[2017-01-29] MEDS: NICOTINE 21 MG/24 HR PATCH T-DERMAL SCH (08:39)
[2017-01-29] MEDS: THIAMINE HCL 100 MG TAB PO SCH (08:39)
[2017-01-29] MEDS ORDERED: ARIPiprazole 15 MG TAB PO SCH (09:00)
--- NOTE | 2017-01-29 10:19 | HHI.PYPN ---
Subjective Remarks Patient seen and examined with counselor and nurse. Chart reviewed. Case discussed with counselor, nurse and recreational therapist in treatment team. Per nursing staff, the patient remains somewhat bizarre and paranoid with ongoing thought blocking. Recreation therapist notes that the patient has not been attending groups. On my examination today, the patient presents as paranoid. He continues to have some mild thought blocking, but this remains improved overall. He insists on conducting the interview at the doorway to his room, and he keeps the door partially closed, he won't say why. He denies any suicidal or homicidal ideation. He appears somewhat internally preoccupied. He denies side effects from medications. Review of Systems ROS Limitations: Psychotic, Poor Historian Except as stated in HPI: all other systems reviewed are Neg Objective Alert: Yes [place]: Person, Place Mood: Calm Affect: Flat Memory Intact: Comment (not assessed today) Hallucinations: Other (appear somewhat internally preoccupied) Delusions: Yes Delusion Type: Paranoid (guarded) Suicidal: Ideation (denies SI) Homicidal: Ideation (denies HI) Insight/Judgment Poor Remarks No motor abnormalities noted. Thought process fairly linear with minimal ongoing thought blocking. Grooming and hygiene fair. Labs Test 01/29/17 06:05 Sodium Level 147 MEQ/L Potassium Level 4.1 MEQ/L Chloride Level 112 MEQ/L Carbon Dioxide Level 31.7 MEQ/L Anion Gap 3 MEQ/L Blood Urea Nitrogen 18 MG/DL Creatinine 1.15 MG/DL Estimat Glomerular Filtration 64 ML/MIN Rate Random Glucose 75 MG/DL Calcium Level 8.9 MG/DL Total Bilirubin 0.4 MG/DL Aspartate Amino Transf 11 U/L (AST/SGOT) Alanine Aminotransferase 46 U/L (ALT/SGPT) Alkaline Phosphatase 70 U/L Total Protein 5.2 GM/DL Albumin 2.8 GM/DL Laboratories reviewed. Mild hypernatremia. Decreased GFR is stable. Transaminitis resolved. Vitals/IOs Vital Signs Date Time Temp Pulse Resp B/P Pulse Ox O2 Delivery O2 Flow Rate FiO2 01/29/17 06:00 61 16 118/78 98 01/28/17 18:00 97.5 Intake and Output 01/28/17 01/28/17 01/29/17 08:00 16:00 00:00 Intake Total 360 ml 1080 ml Balance 360 ml 1080 ml Assessment & Plan Problem List: (1) Schizoaffective disorder, bipolar type ICD Code: F25.0 Assessment & Plan Titrate Abilify to 25 mg daily to target psychosis. Continue Haldol as ordered. Continue to monitor on the inpatient psychiatric unit. Continue other medications and care as ordered. Justification for Cont. Inpt. Impairment in reality construction. Medication changes in process. High risk for decompensation in a less restrictive environment. Discharge Planning [facility] referral Request HC Surrog/Guard Advoc?: No Lee Stanley MD January 29, 2017 10:19
[2017-01-29 18:00] VITALS: BP 141/99; PULSE 87; RESP 18; TEMP 98.2; O2SAT 96
[2017-01-29] MEDS: traZODone HCL 50 MG TAB PO SCH (20:31)
[2017-01-29] MEDS: ATORVASTATIN 20 MG TAB PO SCH (20:31)
[2017-01-29] MEDS: REMOVE OLD NICOTINE PATCH T-DERMAL SCH (20:32)
[2017-01-30] MEDS: PROPRANOLOL HCL 10 MG TAB PO SCH ×3 (04:00→20:20)
[2017-01-30 04:54] VITALS: BP 129/80; PULSE 59; RESP 18; TEMP 98.4; O2SAT 96
[2017-01-30] MEDS: ARIPiprazole 5 MG TAB PO SCH (08:21)
[2017-01-30] MEDS: THIAMINE HCL 100 MG TAB PO SCH (08:22)
[2017-01-30] MEDS: NIFEdipine 30 MG SUSTAINED RELEASE TAB PO SCH (08:22)
[2017-01-30] MEDS: NICOTINE 21 MG/24 HR PATCH T-DERMAL SCH (08:22)
[2017-01-30] MEDS: METOPROLOL TARTRATE 25 MG TAB PO SCH ×2 (08:22→20:19)
[2017-01-30] MEDS: BENZTROPINE MESYLATE 1 MG TAB PO SCH (08:22)
[2017-01-30] MEDS: HALOPERIDOL 5 MG TAB PO SCH ×2 (08:22→20:20)
[2017-01-30] MEDS: ASPIRIN EC 81 MG TABEC PO SCH (08:22)
--- NOTE | 2017-01-30 11:35 | HHI.PYPN ---
Subjective Remarks Patient seen and examined with counselor and nurse. Chart reviewed. Case discussed with nursing staff who reports patient is more or less unchanged today. He did take a shower this morning per nursing staff. On my examination today, the patient presents with some ongoing thought blocking. He does remain a little bit watchful and guarded. I note that he is rocking back and forth and he does describe some degree of inner sense of restlessness. No SI or HI voiced. No evident side effects from medications otherwise. Review of Systems ROS Limitations: Psychotic, Poor Historian Except as stated in HPI: all other systems reviewed are Neg Objective Alert: Yes [place]: Person, Place Mood: Anxious (mild) Affect: Flat Memory Intact: Comment (not assessed today) Hallucinations: Other (appear somewhat internally preoccupied) Delusions: Yes Delusion Type: Paranoid (remains somewhat guarded) Suicidal: Ideation (no SI) Homicidal: Ideation (no HI) Insight/Judgment Poor Remarks Patient does seem to be rocking back and forth somewhat. No other motoric abnormalities noted. Thought process with some ongoing thought blocking. Grooming and hygiene fair. Labs Labs reviewed. Vitals/IOs Vital Signs Date Time Temp Pulse Resp B/P Pulse Ox O2 Delivery O2 Flow Rate FiO2 01/30/17 04:54 98.4 59 18 129/80 96 Intake and Output 01/29/17 01/29/17 01/30/17 08:00 16:00 00:00 Intake Total 480 ml 1540 ml Balance 480 ml 1540 ml Assessment & Plan Problem List: (1) Schizoaffective disorder, bipolar type ICD Code: F25.0 (2) Acute medication-induced akathisia Assessment & Plan: Possible ICD Code: G25.89 Assessment & Plan Patient is possibly experiencing some degree of akathisia, likely related to his Abilify. Patient is already on a beta juana for blood pressure management and so rather than adding Inderal, I will add low-dose Klonopin 0.5 mg twice daily to manage this potential side effect. I will hold the doses of patient's psychotropics steady for now. Continue to monitor on the inpatient unit. Continue other medications and care as ordered. Justification for Cont. Inpt. Possible complicating conditions. Impairment in reality construction. High risk for decompensation in a less restrictive environment. Discharge Planning [facility] [place] [facility] referral. Request HC Surrog/Guard Advoc?: No Lee Stanley MD January 30, 2017 11:35
[2017-01-30 16:37] VITALS: BP 115/58; PULSE 78; RESP 17; TEMP 97.8; O2SAT 98
[2017-01-30] MEDS: clonazePAM 0.5 MG TAB PO SCH (20:19)
[2017-01-30] MEDS: ATORVASTATIN 20 MG TAB PO SCH (20:21)
[2017-01-30] MEDS: traZODone HCL 50 MG TAB PO SCH (20:21)
[2017-01-30] MEDS: REMOVE OLD NICOTINE PATCH T-DERMAL SCH (20:23)
[2017-01-31] MEDS: PROPRANOLOL HCL 10 MG TAB PO SCH ×3 (04:00→21:01)
[2017-01-31 05:26] VITALS: BP 109/65; PULSE 73; RESP 18; TEMP 97.4; O2SAT 98
[2017-01-31 08:57] VITALS: BP 125/86; PULSE 96
[2017-01-31] MEDS: HALOPERIDOL 5 MG TAB PO SCH ×2 (09:00→21:00)
[2017-01-31] MEDS: NICOTINE 21 MG/24 HR PATCH T-DERMAL SCH (09:00)
[2017-01-31] MEDS: BENZTROPINE MESYLATE 1 MG TAB PO SCH (09:48)
[2017-01-31] MEDS: clonazePAM 0.5 MG TAB PO SCH ×2 (09:48→21:01)
[2017-01-31] MEDS: ARIPiprazole 5 MG TAB PO SCH (09:48)
[2017-01-31] MEDS: THIAMINE HCL 100 MG TAB PO SCH (09:48)
[2017-01-31] MEDS: NIFEdipine 30 MG SUSTAINED RELEASE TAB PO SCH (09:48)
[2017-01-31] MEDS: METOPROLOL TARTRATE 25 MG TAB PO SCH ×2 (09:48→21:01)
[2017-01-31] MEDS: ASPIRIN EC 81 MG TABEC PO SCH (09:48)
--- NOTE | 2017-01-31 13:44 | HHI.PYPN ---
Subjective Remarks Patient seen and examined. Chart reviewed. Case discussed with nursing staff who reports that the patient has been no behavioral problem but did have to be encouraged to eat because of psychotic ambivalence that interfered with his ability to feed himself. On my examination today, the patient is sitting in his doorway with his walker positioned in such a way to block the door from opening too much. He tells me, "I am concerned about myself." He denies any SI or HI. He remains internally preoccupied and paranoid. Less restless since starting Klonopin. No evident side effects from meds besides some mild tiredness. Review of Systems ROS Limitations: Poor Historian Except as stated in HPI: all other systems reviewed are Neg Objective Alert: Yes [place]: Person, Place Mood: Calm Affect: Flat Memory Intact: Comment (not assessed today) Hallucinations: Other (int stim) Delusions: Yes Delusion Type: Paranoid Suicidal: Ideation (no SI) Homicidal: Ideation (no HI) Insight/Judgment Poor Remarks No motor abnormalities noted. TP with ongoing thought blocking. Speech halting. Labs Labs reviewed. Vitals/IOs Vital Signs Date Time Temp Pulse Resp B/P Pulse Ox O2 Delivery O2 Flow Rate FiO2 01/31/17 08:57 96 125/86 01/31/17 05:26 97.4 18 98 Intake and Output 01/30/17 01/30/17 01/31/17 08:00 16:00 00:00 Intake Total 360 ml 1200 ml Balance 360 ml 1200 ml Assessment & Plan Problem List: (1) Schizoaffective disorder, bipolar type ICD Code: F25.0 (2) Acute medication-induced akathisia Assessment & Plan: improved. ICD Code: G25.89 Assessment & Plan Now that akathisia is better controlled, titrate Abilify to 30mg/day. Continue other psychotropics as ordered. Continue other medications and care as ordered. Justification for Cont. Inpt. Impairment in reality construction. Medication changes in process. High risk for decompensation in a restrictive environment. [facility] Request HC Surrog/Guard Advoc?: No Lee Stanley MD January 31, 2017 13:43
[2017-01-31 19:29] VITALS: BP 114/73; PULSE 74; RESP 19; TEMP 98.3
[2017-01-31] MEDS: REMOVE OLD NICOTINE PATCH T-DERMAL SCH (21:00)
[2017-01-31] MEDS: traZODone HCL 50 MG TAB PO SCH (21:01)
[2017-01-31] MEDS: ATORVASTATIN 20 MG TAB PO SCH (21:01)
[2017-02-01] MEDS: PROPRANOLOL HCL 10 MG TAB PO SCH ×3 (05:04→21:41)
[2017-02-01 05:49] VITALS: BP 132/77; PULSE 86; RESP 16; TEMP 97.3; O2SAT 95
[2017-02-01] MEDS: NICOTINE 21 MG/24 HR PATCH T-DERMAL SCH (09:00)
[2017-02-01] MEDS: ARIPiprazole 30 MG TAB PO SCH (09:00)
[2017-02-01 09:11] VITALS: BP 134/87; PULSE 88
[2017-02-01 10:06] LABS: BICARBONATE 29.3 MEQ/L (21.0-32.0); POTASSIUM 3.8 MEQ/L (3.5-5.1)
[2017-02-01] MEDS: METOPROLOL TARTRATE 25 MG TAB PO SCH ×2 (10:14→21:00)
[2017-02-01] MEDS: BENZTROPINE MESYLATE 1 MG TAB PO SCH ×2 (10:14→21:41)
[2017-02-01] MEDS: THIAMINE HCL 100 MG TAB PO SCH (10:14)
[2017-02-01] MEDS: HALOPERIDOL 5 MG TAB PO SCH ×2 (10:14→21:41)
[2017-02-01] MEDS: NIFEdipine 30 MG SUSTAINED RELEASE TAB PO SCH (10:14)
[2017-02-01] MEDS: ASPIRIN EC 81 MG TABEC PO SCH (10:15)
[2017-02-01] MEDS: clonazePAM 0.5 MG TAB PO SCH ×2 (10:15→21:41)
--- NOTE | 2017-02-01 12:54 | HHI.PYPN ---
Subjective Remarks Patient seen and examined. Chart reviewed. Case discussed with nursing staff. On my examination today, patient complains of feeling subjectively staff. I can detect no limb hypertonia, nor is there any tremor, cogwheeling or hypomimia. No dystonias or dyskinesias noted. Thought blocking persists. Denies audiovisual hallucinations but appears somewhat internally preoccupied. Denies side effects from medications otherwise. No other physical complaints. Review of Systems ROS Limitations: Psychotic, Poor Historian Except as stated in HPI: all other systems reviewed are Neg Objective Alert: Yes [place]: Person, Place Mood: Anxious Affect: Flat Memory Intact: Comment (not assessed today) Hallucinations: Other (remains internally stimulated) Delusions: Yes Delusion Type: Paranoid Suicidal: Ideation (no SI) Homicidal: Ideation (no HI) Insight/Judgment Poor Remarks Motor exam as above. Speech somewhat halting. Thought process with thought blocking. Labs Test 02/01/17 08:23 Sodium Level 143 MEQ/L Potassium Level 3.8 MEQ/L Chloride Level 108 MEQ/L Carbon Dioxide Level 29.3 MEQ/L Anion Gap 6 MEQ/L Blood Urea Nitrogen 18 MG/DL Creatinine 1.06 MG/DL Estimat Glomerular Filtration 70 ML/MIN Rate Random Glucose 104 MG/DL Calcium Level 9.1 MG/DL Labs reviewed. BMP reveals ongoing improvement in GFR. Vitals/IOs Vital Signs Date Time Temp Pulse Resp B/P Pulse Ox O2 Delivery O2 Flow Rate FiO2 02/01/17 09:11 88 134/87 02/01/17 05:49 97.3 16 95 Intake and Output 01/31/17 01/31/17 02/01/17 08:00 16:00 00:00 Intake Total 360 ml 240 ml 360 ml Balance 360 ml 240 ml 360 ml Assessment & Plan Problem List: (1) Schizoaffective disorder, bipolar type ICD Code: F25.0 (2) Acute medication-induced akathisia ICD Code: G25.89 Assessment & Plan Patient complaining of stiffness which is not appreciated on exam. Nonetheless , given the patient's robust antipsychotic load, I will titrate his Cogentin to 1 mg twice a day as subclinical EPS seems like the most likely cause of patient' s subjective distress. No evidence of NMS on exam. I will also taper his Haldol to 5 mg twice daily. Continue Klonopin for akathisia related to Abilify , which I will also continue at current dose. Continue to monitor on the inpatient unit. Continue other medications and care as ordered. Justification for Cont. Inpt. Complicating condition. Medication changes in process. High risk for decompensation in a restrictive environment. Discharge Planning [facility] psychiatric hospital referral. Request HC Surrog/Guard Advoc?: No Lee Stanley MD February 01, 2017 12:54
[2017-02-01 18:42] VITALS: BP 128/80; PULSE 58; RESP 16; TEMP 97.2; O2SAT 96
[2017-02-01] MEDS: REMOVE OLD NICOTINE PATCH T-DERMAL SCH (21:00)
[2017-02-01] MEDS: traZODone HCL 50 MG TAB PO SCH (21:41)
[2017-02-01] MEDS: ATORVASTATIN 20 MG TAB PO SCH (21:41)
[2017-02-02] MEDS: PROPRANOLOL HCL 10 MG TAB PO SCH ×3 (04:00→20:00)
[2017-02-02 05:51] VITALS: BP 133/87; PULSE 69; RESP 16; TEMP 98.1; O2SAT 96
[2017-02-02] MEDS: NICOTINE 21 MG/24 HR PATCH T-DERMAL SCH (09:00)
[2017-02-02] MEDS: ASPIRIN EC 81 MG TABEC PO SCH (09:01)
[2017-02-02] MEDS: HALOPERIDOL 5 MG TAB PO SCH ×2 (09:01→22:03)
[2017-02-02] MEDS: NIFEdipine 30 MG SUSTAINED RELEASE TAB PO SCH (09:01)
[2017-02-02] MEDS: ARIPiprazole 30 MG TAB PO SCH (09:01)
[2017-02-02] MEDS: THIAMINE HCL 100 MG TAB PO SCH (09:01)
[2017-02-02] MEDS: BENZTROPINE MESYLATE 1 MG TAB PO SCH ×2 (09:02→22:04)
[2017-02-02] MEDS: clonazePAM 0.5 MG TAB PO SCH ×2 (09:02→22:03)
[2017-02-02] MEDS: METOPROLOL TARTRATE 25 MG TAB PO SCH ×2 (09:02→21:00)
--- NOTE | 2017-02-02 12:48 | HHI.PYPN ---
Subjective Remarks Patient was seen and case discussed with nursing. Progress note reviewed from yesterday. Can detect no limb hypertonia, nor is there any tremor, cogwheeling or hypomimia. No dystonias or dyskinesias noted. Patient is seclusive to self. Continues to have thought blocking. Affect is blunted and patient says he feels depressed. Does denies suicidal ideation intent or plan. Compliant with his medications. Skipped breakfast and was eating lunch. Objective Alert: Yes [place]: Person, Place Mood: Depressed Affect: Blunted Memory Intact: Comment (not assessed today) Hallucinations: Other (remains internally stimulated) Delusions: Yes Delusion Type: Paranoid Suicidal: Ideation (no SI) Homicidal: Ideation (no HI) Insight/Judgment Poor Vitals/IOs Vital Signs Date Time Temp Pulse Resp B/P Pulse Ox O2 Delivery O2 Flow Rate FiO2 02/02/17 05:51 98.1 69 16 133/87 96 Intake and Output 02/01/17 02/01/17 02/02/17 08:00 16:00 00:00 Intake Total 240 ml 360 ml 0 ml Balance 240 ml 360 ml 0 ml Assessment & Plan Problem List: (1) Schizoaffective disorder, bipolar type ICD Code: F25.0 (2) Acute medication-induced akathisia ICD Code: G25.89 Assessment & Plan Continue current treatment plan Justification for Cont. Inpt. Patient will decompensate in a less restrictive setting Request HC Surrog/Guard Advoc?: No Kurt Garcia DO February 02, 2017 12:48
[2017-02-02 18:00] VITALS: BP 110/74; PULSE 86; RESP 18; TEMP 98; O2SAT 98
[2017-02-02] MEDS: REMOVE OLD NICOTINE PATCH T-DERMAL SCH (21:00)
[2017-02-02] MEDS: ATORVASTATIN 20 MG TAB PO SCH (22:04)
[2017-02-02] MEDS: traZODone HCL 50 MG TAB PO SCH (22:04)
[2017-02-03] MEDS: PROPRANOLOL HCL 10 MG TAB PO SCH ×3 (04:42→21:45)
[2017-02-03 06:33] VITALS: BP 127/90; PULSE 89; RESP 16; TEMP 96.7; O2SAT 97
[2017-02-03] MEDS: clonazePAM 0.5 MG TAB PO SCH ×2 (08:33→21:44)
[2017-02-03] MEDS: BENZTROPINE MESYLATE 1 MG TAB PO SCH ×2 (08:33→21:42)
[2017-02-03] MEDS: THIAMINE HCL 100 MG TAB PO SCH (08:34)
[2017-02-03] MEDS: HALOPERIDOL 5 MG TAB PO SCH ×2 (08:34→21:00)
[2017-02-03] MEDS: NIFEdipine 30 MG SUSTAINED RELEASE TAB PO SCH (08:34)
[2017-02-03] MEDS: ARIPiprazole 30 MG TAB PO SCH (08:34)
[2017-02-03] MEDS: NICOTINE 21 MG/24 HR PATCH T-DERMAL SCH (08:35)
[2017-02-03] MEDS: METOPROLOL TARTRATE 25 MG TAB PO SCH ×2 (08:35→21:44)
[2017-02-03] MEDS: ASPIRIN EC 81 MG TABEC PO SCH (08:38)
--- NOTE | 2017-02-03 10:01 | HHI.PYPN ---
Subjective Remarks Patient was seen and case discussed with nursing. He remains seclusive to self spending most of the time in the corner of his room. No stiffness or tremors are noted today. Denies auditory visual hallucinations but got concerned when the door started to be closed asked for us to make sure it's open. Compliant with medications Objective Alert: Yes [place]: Person, Place Mood: Depressed Affect: Flat Memory Intact: Comment (not assessed today) Hallucinations: Other (remains internally stimulated) Delusions: Yes Delusion Type: Paranoid Suicidal: Ideation (no SI) Homicidal: Ideation (no HI) Insight/Judgment Poor Vitals/IOs Vital Signs Date Time Temp Pulse Resp B/P Pulse Ox O2 Delivery O2 Flow Rate FiO2 02/03/17 06:33 96.7 89 16 127/90 97 Intake and Output 02/02/17 02/02/17 02/03/17 08:00 16:00 00:00 Intake Total 0 ml 1920 ml Balance 0 ml 1920 ml Assessment & Plan Problem List: (1) Schizoaffective disorder, bipolar type ICD Code: F25.0 (2) Acute medication-induced akathisia ICD Code: G25.89 Assessment & Plan Continue current treatment plan Justification for Cont. Inpt. Patient will decompensate in a less restrictive setting Request HC Surrog/Guard Advoc?: No Kurt Garcia DO February 03, 2017 10:01
[2017-02-03 18:21] VITALS: BP 134/78; PULSE 87; RESP 18; TEMP 97.2
[2017-02-03] MEDS: REMOVE OLD NICOTINE PATCH T-DERMAL SCH (21:00)
[2017-02-03] MEDS: traZODone HCL 50 MG TAB PO SCH (21:44)
[2017-02-03] MEDS: ATORVASTATIN 20 MG TAB PO SCH (21:45)
[2017-02-04] MEDS: PROPRANOLOL HCL 10 MG TAB PO SCH ×3 (04:59→20:18)
[2017-02-04 06:00] VITALS: BP 135/88; PULSE 63; RESP 18; TEMP 97.8; O2SAT 97
[2017-02-04] MEDS: NICOTINE 21 MG/24 HR PATCH T-DERMAL SCH (09:00)
[2017-02-04] MEDS: HALOPERIDOL 5 MG TAB PO SCH (09:23)
[2017-02-04] MEDS: ARIPiprazole 30 MG TAB PO SCH (09:23)
[2017-02-04] MEDS: METOPROLOL TARTRATE 25 MG TAB PO SCH ×2 (09:23→20:18)
[2017-02-04] MEDS: NIFEdipine 30 MG SUSTAINED RELEASE TAB PO SCH (09:23)
[2017-02-04] MEDS: clonazePAM 0.5 MG TAB PO SCH ×2 (09:23→20:19)
[2017-02-04] MEDS: THIAMINE HCL 100 MG TAB PO SCH (09:24)
[2017-02-04] MEDS: ASPIRIN EC 81 MG TABEC PO SCH (09:24)
[2017-02-04] MEDS: BENZTROPINE MESYLATE 1 MG TAB PO SCH ×2 (09:24→20:19)
--- NOTE | 2017-02-04 12:00 | HHI.PYPN ---
Subjective Remarks Patient seen and examined. Chart reviewed. Case discussed with nursing staff reports that the patient was fairly paranoid regarding his psychotropic medications. For me today, the patient seems a little sedated. He complains of feeling tired and overmedicated. It does not appear that he slept poorly overnight, nor did he receive any PRNs. Thought blocking remains. He is somewhat watchful and guarded. No other side effects from meds. Review of Systems ROS Limitations: Poor Historian Except as stated in HPI: all other systems reviewed are Neg Objective Alert: Yes (mildly sedated) [place]: Person, Place Mood: Calm Affect: Flat Memory Intact: Comment (not assessed today) Hallucinations: Other (int stim) Delusions: Yes Delusion Type: Paranoid (guarded) Suicidal: Ideation (no SI) Homicidal: Ideation (no HI) Insight/Judgment Poor Remarks No motor abnormalities noted. No hand tremor, no dystonia, no dyskinesia. Ongoing thought blocking. Labs Labs reviewed. Vitals/IOs Vital Signs Date Time Temp Pulse Resp B/P Pulse Ox O2 Delivery O2 Flow Rate FiO2 02/04/17 06:00 97.8 63 18 135/88 97 Intake and Output 02/03/17 02/03/17 02/04/17 08:00 16:00 00:00 Intake Total 240 ml 420 ml Balance 240 ml 420 ml Assessment & Plan Problem List: (1) Schizoaffective disorder, bipolar type ICD Code: F25.0 (2) Acute medication-induced akathisia ICD Code: G25.89 Assessment & Plan Discontinue Haldol to try to lessen sedation. Continue Abilify along with Klonopin for management of akathisia and Cogentin for EPS. Check an updated set of basic labs. Continue to monitor on the inpatient unit. Continue other medications and care as ordered. Justification for Cont. Inpt. Impairment in reality construction. Possible complicating condition, namely excessive sedation. Medication changes in process. High risk for decompensation in a restrictive environment. Discharge Planning [facility] psychiatric hospital referral. Request HC Surrog/Guard Advoc?: No Lee Stanley MD February 04, 2017 12:00
[2017-02-04 18:55] VITALS: BP 135/72; PULSE 77; RESP 18; TEMP 97
[2017-02-04] MEDS: ATORVASTATIN 20 MG TAB PO SCH (20:17)
[2017-02-04] MEDS: traZODone HCL 50 MG TAB PO SCH (20:18)
[2017-02-04] MEDS: REMOVE OLD NICOTINE PATCH T-DERMAL SCH (20:26)
[2017-02-05] MEDS: PROPRANOLOL HCL 10 MG TAB PO SCH ×3 (05:02→20:51)
[2017-02-05 05:27] VITALS: BP 124/90; PULSE 74; RESP 18; TEMP 97.6; O2SAT 96
[2017-02-05 07:55] LABS: BASOPHIL # 0.1 TH/MM3 (0-0.2); BASOPHIL % 1.1 % (0.0-2.0); EOSINOPHIL # 0.2 TH/MM3 (0-0.4); EOSINOPHIL % 3.5 % (0.0-4.0); HEMATOCRIT 40.6 % (39.0-51.0); HEMO FLAGS DIFF FINAL; LYMPH % 36.3 % (9.0-44.0); LYMPHOCYTE # 2.1 TH/MM3 (1.0-4.8); MEAN CELL VOLUME 89.4 FL (80.0-100.0); MEAN CORPUSCULAR HEMOGLOBIN 29.5 PG (27.0-34.0); MONO % 7.7 % (0.0-8.0); NEUT % 51.4 % (16.0-70.0); PLATELET COUNT 114 TH/MM3 (150-450); RED BLOOD COUNT 4.54 MIL/MM3 (4.50-5.90); RED CELL DISTRIBUTION WIDTH 15.1 % (11.6-17.2); WHITE BLOOD COUNT 5.8 TH/MM3 (4.0-11.0)
[2017-02-05 08:39] LABS: ALKALINE PHOSPHATASE 84 U/L (45-117); ALT (GPT) 30 U/L (12-78); ANION GAP 4 MEQ/L (5-15); AST (GOT) 15 U/L (15-37); BLOOD UREA NITROGEN 19 MG/DL (7-18); CHLORIDE 108 MEQ/L (98-107); GLOMERULAR FILTRATION RATE 68 ML/MIN (>89); POTASSIUM 3.9 MEQ/L (3.5-5.1); SODIUM (NA) 143 MEQ/L (136-145); TOTAL BILIRUBIN ADULT 0.3 MG/DL (0.2-1.0)
[2017-02-05] MEDS: NICOTINE 21 MG/24 HR PATCH T-DERMAL SCH (09:00)
[2017-02-05] MEDS: THIAMINE HCL 100 MG TAB PO SCH (09:29)
[2017-02-05] MEDS: ARIPiprazole 30 MG TAB PO SCH (09:29)
[2017-02-05] MEDS: clonazePAM 0.5 MG TAB PO SCH ×2 (09:29→20:52)
[2017-02-05] MEDS: ASPIRIN EC 81 MG TABEC PO SCH (09:29)
[2017-02-05] MEDS: NIFEdipine 30 MG SUSTAINED RELEASE TAB PO SCH (09:29)
[2017-02-05] MEDS: METOPROLOL TARTRATE 25 MG TAB PO SCH ×2 (09:30→20:52)
[2017-02-05] MEDS: BENZTROPINE MESYLATE 1 MG TAB PO SCH ×2 (09:30→20:52)
--- NOTE | 2017-02-05 12:20 | HHI.PYPN ---
Subjective Remarks Patient seen in dayroom with nurse Tushar, chart reviewed, Dr. Stanley notes noted and appreciated and agreed with. With me patient remains somewhat isolated with thought blocking and markedly delayed responses. When I attempted to discuss discharge plans, including possibility of state referral placement he became somewhat more animated and said I have her friend will take care of me. I did discuss the multiple failures and placements in the past and the community for now continue treatment no change Review of Systems Except as stated in HPI: all other systems reviewed are Neg Objective Alert: Yes (mildly sedated) [place]: Person, Place Mood: Calm Affect: Flat Memory Intact: Comment (not assessed today) Hallucinations: Other (int stim) Delusions: Yes Delusion Type: Paranoid (guarded) Suicidal: Ideation (no SI) Homicidal: Ideation (no HI) Insight/Judgment Very poor Labs Test 02/05/17 07:12 White Blood Count 5.8 TH/MM3 Red Blood Count 4.54 MIL/MM3 Hemoglobin 13.4 GM/DL Hematocrit 40.6 % Mean Corpuscular Volume 89.4 FL Mean Corpuscular Hemoglobin 29.5 PG Mean Corpuscular Hemoglobin 33.0 % Concent Red Cell Distribution Width 15.1 % Platelet Count 114 TH/MM3 Mean Platelet Volume 11.8 FL Neutrophils (%) (Auto) 51.4 % Lymphocytes (%) (Auto) 36.3 % Monocytes (%) (Auto) 7.7 % Eosinophils (%) (Auto) 3.5 % Basophils (%) (Auto) 1.1 % Neutrophils # (Auto) 3.0 TH/MM3 Lymphocytes # (Auto) 2.1 TH/MM3 Monocytes # (Auto) 0.4 TH/MM3 Eosinophils # (Auto) 0.2 TH/MM3 Basophils # (Auto) 0.1 TH/MM3 CBC Comment DIFF FINAL Differential Comment Sodium Level 143 MEQ/L Potassium Level 3.9 MEQ/L Chloride Level 108 MEQ/L Carbon Dioxide Level 31.0 MEQ/L Anion Gap 4 MEQ/L Blood Urea Nitrogen 19 MG/DL Creatinine 1.09 MG/DL Estimat Glomerular Filtration 68 ML/MIN Rate Random Glucose 93 MG/DL Calcium Level 9.0 MG/DL Total Bilirubin 0.3 MG/DL Aspartate Amino Transf 15 U/L (AST/SGOT) Alanine Aminotransferase 30 U/L (ALT/SGPT) Alkaline Phosphatase 84 U/L Total Protein 6.0 GM/DL Albumin 2.9 GM/DL Vitals/IOs Vital Signs Date Time Temp Pulse Resp B/P Pulse Ox O2 Delivery O2 Flow Rate FiO2 02/05/17 05:27 97.6 74 18 124/90 96 Intake and Output 02/04/17 02/04/17 02/05/17 08:00 16:00 00:00 Intake Total 0 ml 120 ml 840 ml Output Total 960 ml Balance 0 ml -840 ml 840 ml Assessment & Plan Problem List: (1) Schizoaffective disorder, bipolar type ICD Code: F25.0 (2) Acute medication-induced akathisia ICD Code: G25.89 Assessment & Plan Estimated LOS: days patient continue somewhat psychotic and paranoid, making little attempts to improve. Showing little insight. For now continue treatment no change Justification for Cont. Inpt. At this time patient will decompensate placed in the lower level of care Discharge Planning To be determined Request HC Surrog/Guard Advoc?: No Justin Ivy MD February 05, 2017 12:20
[2017-02-05 20:00] VITALS: BP 129/77; PULSE 82; RESP 18
[2017-02-05] MEDS: ATORVASTATIN 20 MG TAB PO SCH (20:52)
[2017-02-05] MEDS: traZODone HCL 50 MG TAB PO SCH (20:52)
[2017-02-05] MEDS: REMOVE OLD NICOTINE PATCH T-DERMAL SCH (20:54)
[2017-02-06] MEDS: PROPRANOLOL HCL 10 MG TAB PO SCH ×3 (04:00→20:46)
[2017-02-06 05:55] VITALS: BP 129/75; PULSE 72; RESP 18; TEMP 97.3
[2017-02-06] MEDS: clonazePAM 0.5 MG TAB PO SCH ×2 (08:54→20:46)
[2017-02-06] MEDS: ASPIRIN EC 81 MG TABEC PO SCH (08:55)
[2017-02-06] MEDS: THIAMINE HCL 100 MG TAB PO SCH (08:55)
[2017-02-06] MEDS: ARIPiprazole 30 MG TAB PO SCH (08:56)
[2017-02-06] MEDS: BENZTROPINE MESYLATE 1 MG TAB PO SCH ×2 (08:56→20:46)
[2017-02-06] MEDS: METOPROLOL TARTRATE 25 MG TAB PO SCH ×2 (09:00→20:46)
[2017-02-06] MEDS: NIFEdipine 30 MG SUSTAINED RELEASE TAB PO SCH (09:00)
[2017-02-06] MEDS: NICOTINE 21 MG/24 HR PATCH T-DERMAL SCH (09:00)
--- NOTE | 2017-02-06 15:05 | HHI.PYPN ---
Subjective Remarks Patient seen in [facility] with floor staff, patient continues to isolate needing significant interventions at times, when attempting to speak with patient concerning placement and behaviors he shows no insight, and very little retention of past conversations. He still feels he can go home with a "friend" to [facility]. I continue to remind him of the state referral process that is ongoing Review of Systems Except as stated in HPI: all other systems reviewed are Neg Objective Alert: Yes (mildly sedated) [place]: Person, Place Mood: Calm Affect: Flat Memory Intact: Comment (not assessed today) Hallucinations: Other (int stim) Delusions: Yes Delusion Type: Paranoid (guarded) Suicidal: Ideation (no SI) Homicidal: Ideation (no HI) Insight/Judgment Very poor Vitals/IOs Vital Signs Date Time Temp Pulse Resp B/P Pulse Ox O2 Delivery O2 Flow Rate FiO2 02/06/17 05:55 97.3 72 18 129/75 02/05/17 05:27 96 Intake and Output 02/05/17 02/05/17 02/06/17 08:00 16:00 00:00 Intake Total 1320 ml 600 ml Balance 1320 ml 600 ml Assessment & Plan Problem List: (1) Schizoaffective disorder, bipolar type ICD Code: F25.0 (2) Acute medication-induced akathisia ICD Code: G25.89 Assessment & Plan Estimated LOS: days patient continues remarks passivity isolation needing interventions. Showing no insight into his disease. Justification for Cont. Inpt. At this time patient will decompensate if placed in a lower level of care Discharge Planning To be determined Request HC Surrog/Guard Advoc?: No Justin Ivy MD February 06, 2017 15:05
[2017-02-06 17:27] VITALS: BP 133/80; PULSE 84; RESP 16; TEMP 97.3; O2SAT 97
[2017-02-06] MEDS: ATORVASTATIN 20 MG TAB PO SCH (20:46)
[2017-02-06] MEDS: traZODone HCL 50 MG TAB PO SCH (20:46)
[2017-02-06] MEDS: REMOVE OLD NICOTINE PATCH T-DERMAL SCH (20:47)
[2017-02-07] MEDS: PROPRANOLOL HCL 10 MG TAB PO SCH ×3 (05:02→20:56)
[2017-02-07 05:33] VITALS: BP 131/86; PULSE 71; RESP 18; TEMP 97
[2017-02-07 06:00] VITALS: BP 131/86; PULSE 71; RESP 18; TEMP 97; O2SAT 98
[2017-02-07] MEDS: NICOTINE 21 MG/24 HR PATCH T-DERMAL SCH (09:00)
[2017-02-07] MEDS: METOPROLOL TARTRATE 25 MG TAB PO SCH ×2 (09:11→20:56)
[2017-02-07] MEDS: BENZTROPINE MESYLATE 1 MG TAB PO SCH ×2 (09:11→20:56)
[2017-02-07] MEDS: THIAMINE HCL 100 MG TAB PO SCH (09:11)
[2017-02-07] MEDS: ARIPiprazole 30 MG TAB PO SCH (09:11)
[2017-02-07] MEDS: clonazePAM 0.5 MG TAB PO SCH ×2 (09:11→20:56)
[2017-02-07] MEDS: NIFEdipine 30 MG SUSTAINED RELEASE TAB PO SCH (09:11)
[2017-02-07] MEDS: ASPIRIN EC 81 MG TABEC PO SCH (09:11)
--- NOTE | 2017-02-07 14:58 | HHI.PYPN ---
Subjective Remarks Patient seen in [facility] walking with walker, patient is very reluctant to talk with me, looks to be quite suspiciously. When asked about his opinion related to placement issues becomes somewhat defensive and more irritated with me. He shows no insight into his past behaviors or his need for appropriate placement such as the [facility] Review of Systems Except as stated in HPI: all other systems reviewed are Neg Objective Alert: Yes (mildly sedated) [place]: Person, Place Mood: Calm Affect: Flat Memory Intact: Comment (not assessed today) Hallucinations: Other (int stim) Delusions: Yes Delusion Type: Paranoid (guarded) Suicidal: Ideation (no SI) Homicidal: Ideation (no HI) Insight/Judgment Very poor Vitals/IOs Vital Signs Date Time Temp Pulse Resp B/P Pulse Ox O2 Delivery O2 Flow Rate FiO2 02/07/17 06:00 97.0 71 18 131/86 98 Intake and Output 02/06/17 02/06/17 02/07/17 08:00 16:00 00:00 Intake Total 240 ml 1200 ml Balance 240 ml 1200 ml Assessment & Plan Problem List: (1) Schizoaffective disorder, bipolar type ICD Code: F25.0 (2) Acute medication-induced akathisia ICD Code: G25.89 Assessment & Plan Estimated LOS: days patient remains vigilant some somewhat psychotic with no insight, compliant medications Justification for Cont. Inpt. At this time patient will decompensate if placed in the lower level of care Discharge Planning To be determined Request HC Surrog/Guard Advoc?: No Justin Ivy MD February 07, 2017 14:58
[2017-02-07 17:17] VITALS: BP 111/70; PULSE 87; RESP 19; TEMP 98.4
[2017-02-07] MEDS: ATORVASTATIN 20 MG TAB PO SCH (20:57)
[2017-02-07] MEDS: traZODone HCL 50 MG TAB PO SCH (20:57)
[2017-02-07] MEDS: REMOVE OLD NICOTINE PATCH T-DERMAL SCH (21:00)
[2017-02-08] MEDS: PROPRANOLOL HCL 10 MG TAB PO SCH ×3 (04:56→20:50)
[2017-02-08 06:43] VITALS: BP 144/86; PULSE 76; RESP 18; TEMP 98; O2SAT 99
[2017-02-08] MEDS: clonazePAM 0.5 MG TAB PO SCH ×2 (09:00→20:49)
[2017-02-08] MEDS: THIAMINE HCL 100 MG TAB PO SCH (09:00)
[2017-02-08] MEDS: METOPROLOL TARTRATE 25 MG TAB PO SCH ×2 (09:00→20:50)
[2017-02-08] MEDS: NICOTINE 21 MG/24 HR PATCH T-DERMAL SCH (09:00)
[2017-02-08] MEDS: NIFEdipine 30 MG SUSTAINED RELEASE TAB PO SCH (09:00)
[2017-02-08] MEDS: BENZTROPINE MESYLATE 1 MG TAB PO SCH ×2 (09:00→20:50)
[2017-02-08] MEDS: ARIPiprazole 30 MG TAB PO SCH (09:00)
[2017-02-08] MEDS: ASPIRIN EC 81 MG TABEC PO SCH (09:00)
--- NOTE | 2017-02-08 12:36 | HHI.PYPN ---
Subjective Remarks Patient seen in his room with floor staff, chart reviewed, patient continues to isolate, showing no insight into his disease. Continues to feel as if he could return to his home with his friend help. Compliant medications. Review of Systems Except as stated in HPI: all other systems reviewed are Neg Objective Alert: Yes (mildly sedated) [place]: Person, Place Mood: Calm Affect: Flat Memory Intact: Comment (not assessed today) Hallucinations: Other (int stim) Delusions: Yes Delusion Type: Paranoid (guarded) Suicidal: Ideation (no SI) Homicidal: Ideation (no HI) Insight/Judgment Poor Vitals/IOs Vital Signs Date Time Temp Pulse Resp B/P Pulse Ox O2 Delivery O2 Flow Rate FiO2 02/08/17 06:43 98.0 76 18 144/86 99 Intake and Output 02/07/17 02/07/17 02/07/17 07:59 15:59 23:59 Intake Total 240 ml 120 ml 360 ml Balance 240 ml 120 ml 360 ml Assessment & Plan Problem List: (1) Schizoaffective disorder, bipolar type ICD Code: F25.0 (2) Acute medication-induced akathisia ICD Code: G25.89 Assessment & Plan Estimated LOS: days patient remains isolative somewhat confusing in his responses today Justification for Cont. Inpt. At this time patient will decompensate if placed in a lower level of care Discharge Planning To be determined Request HC Surrog/Guard Advoc?: Justin Thomason MD February 08, 2017 12:36
[2017-02-08 18:20] VITALS: BP 123/68; PULSE 87; RESP 17; TEMP 99.4
[2017-02-08] MEDS: traZODone HCL 50 MG TAB PO SCH (20:49)
[2017-02-08] MEDS: ATORVASTATIN 20 MG TAB PO SCH (20:51)
[2017-02-08] MEDS: REMOVE OLD NICOTINE PATCH T-DERMAL SCH (20:51)
[2017-02-09] MEDS: PROPRANOLOL HCL 10 MG TAB PO SCH ×3 (04:26→20:00)
[2017-02-09 06:45] VITALS: BP 157/90; PULSE 71; RESP 16; TEMP 98.6; O2SAT 96
[2017-02-09] MEDS: NICOTINE 21 MG/24 HR PATCH T-DERMAL SCH (09:00)
--- NOTE | 2017-02-09 09:48 | HHI.PYPN ---
Subjective Remarks Patient seen and examined with nurse in weekend coverage. Chart reviewed. Case discussed with nursing staff reports that the patient is somewhat more talkative. He reportedly got into the shower yesterday. On my examination today, the patient continues to isolate in his room. He denies any SI, HI or AVH but continues to appear somewhat internally stimulated. He wants us to give his friend Fabián a call to see if he can go to live with Fabián. No evident side effects from medications. No physical complaints. Review of Systems ROS Limitations: Psychotic, Poor Historian Except as stated in HPI: all other systems reviewed are Neg Objective Alert: Yes [place]: Person, Place Mood: Calm Affect: Flat (remains flat) Memory Intact: Comment (not assessed today) Hallucinations: Other (remains internally preoccupied) Delusions: Yes Delusion Type: Paranoid Suicidal: Ideation (no SI) Homicidal: Ideation (no HI) Insight/Judgment Poor Remarks No motor abnormalities noted Labs Labs reviewed. No new labs. Vitals/IOs Vital Signs Date Time Temp Pulse Resp B/P Pulse Ox O2 Delivery O2 Flow Rate FiO2 02/09/17 06:45 98.6 71 16 157/90 96 Intake and Output 02/08/17 02/08/17 02/09/17 08:00 16:00 00:00 Intake Total 360 ml 480 ml 480 ml Balance 360 ml 480 ml 480 ml Assessment & Plan Problem List: (1) Schizoaffective disorder, bipolar type ICD Code: F25.0 (2) Acute medication-induced akathisia ICD Code: G25.89 Assessment & Plan Continue current psychotropics as ordered. Check a CBC to ensure that the thrombocytopenia is stable. Continue to monitor on the inpatient unit. Continue other medications and care as ordered. Justification for Cont. Inpt. High risk for decompensation in a less restrictive environment. Discharge Planning Per Dr. Ivy Request HC Surrog/Guard Advoc?: No Lee Stanley MD February 09, 2017 09:48
[2017-02-09] MEDS: clonazePAM 0.5 MG TAB PO SCH ×2 (10:17→22:47)
[2017-02-09] MEDS: METOPROLOL TARTRATE 25 MG TAB PO SCH ×2 (10:17→21:00)
[2017-02-09] MEDS: ASPIRIN EC 81 MG TABEC PO SCH (10:17)
[2017-02-09] MEDS: THIAMINE HCL 100 MG TAB PO SCH (10:17)
[2017-02-09] MEDS: ARIPiprazole 30 MG TAB PO SCH (10:17)
[2017-02-09] MEDS: NIFEdipine 30 MG SUSTAINED RELEASE TAB PO SCH (10:17)
[2017-02-09] MEDS: BENZTROPINE MESYLATE 1 MG TAB PO SCH ×2 (10:18→22:47)
[2017-02-09 13:08] VITALS: BP 113/57; PULSE 58
[2017-02-09 13:48] LABS: AUTOMATED NEUTROPHIL # 4.4 TH/MM3 (1.8-7.7); BASOPHIL # 0.1 TH/MM3 (0-0.2); BASOPHIL % 0.9 % (0.0-2.0); EOSINOPHIL # 0.1 TH/MM3 (0-0.4); EOSINOPHIL % 2.1 % (0.0-4.0); HEMATOCRIT 37.2 % (39.0-51.0); HEMO FLAGS DIFF FINAL; LYMPH % 23.4 % (9.0-44.0); LYMPHOCYTE # 1.6 TH/MM3 (1.0-4.8); MEAN CELL VOLUME 88.7 FL (80.0-100.0); MEAN CORPUSCULAR HEMOGLOBIN 29.3 PG (27.0-34.0); MONO % 7.6 % (0.0-8.0); PLATELET COUNT 104 TH/MM3 (150-450); RED BLOOD COUNT 4.19 MIL/MM3 (4.50-5.90); RED CELL DISTRIBUTION WIDTH 14.8 % (11.6-17.2); WHITE BLOOD COUNT 6.6 TH/MM3 (4.0-11.0)
[2017-02-09 19:21] VITALS: BP 100/64; PULSE 87; TEMP 97.4; O2SAT 96
[2017-02-09] MEDS: REMOVE OLD NICOTINE PATCH T-DERMAL SCH (21:00)
[2017-02-09] MEDS: traZODone HCL 50 MG TAB PO SCH (22:47)
[2017-02-09] MEDS: ATORVASTATIN 20 MG TAB PO SCH (22:50)
[2017-02-10 05:40] VITALS: BP 149/86; PULSE 74; RESP 17; TEMP 98.6; O2SAT 94
[2017-02-10] MEDS: PROPRANOLOL HCL 10 MG TAB PO SCH ×3 (06:17→21:23)
[2017-02-10] MEDS: NICOTINE 21 MG/24 HR PATCH T-DERMAL SCH (09:00)
[2017-02-10] MEDS: NIFEdipine 30 MG SUSTAINED RELEASE TAB PO SCH (09:17)
[2017-02-10] MEDS: ASPIRIN EC 81 MG TABEC PO SCH (09:18)
[2017-02-10] MEDS: ARIPiprazole 30 MG TAB PO SCH (09:18)
[2017-02-10] MEDS: clonazePAM 0.5 MG TAB PO SCH ×2 (09:18→21:23)
[2017-02-10] MEDS: BENZTROPINE MESYLATE 1 MG TAB PO SCH ×2 (09:18→21:22)
[2017-02-10] MEDS: THIAMINE HCL 100 MG TAB PO SCH (09:18)
[2017-02-10] MEDS: METOPROLOL TARTRATE 25 MG TAB PO SCH ×2 (09:18→21:23)
[2017-02-10 12:38] VITALS: BP 137/86; PULSE 77
--- NOTE | 2017-02-10 12:45 | HHI.PYPN ---
Subjective Remarks On psychiatric reevaluation today patient is found in his room, he was sleeping but easily arousable, he is kind of distant, superficially cooperative, he reports improved mood, he says that his feeling better, his oriented 3, he denies suicidal or homicidal ideation, he denies visual and auditory hallucinations. However, patient seems to be objectively melancholic. He is compliant with medications, no agitation or aggressive behavior reported. Review of Systems Other No somatic complaints Objective Alert: Yes [place]: Person, Place Mood: Calm Affect: Flat (remains flat) Memory Intact: Comment (not assessed today) Hallucinations: Other (remains internally preoccupied) Delusions: Yes Delusion Type: Paranoid Suicidal: Ideation (no SI) Homicidal: Ideation (no HI) Insight/Judgment Poor Labs Test 02/09/17 13:12 White Blood Count 6.6 TH/MM3 Red Blood Count 4.19 MIL/MM3 Hemoglobin 12.3 GM/DL Hematocrit 37.2 % Mean Corpuscular Volume 88.7 FL Mean Corpuscular Hemoglobin 29.3 PG Mean Corpuscular Hemoglobin 33.0 % Concent Red Cell Distribution Width 14.8 % Platelet Count 104 TH/MM3 Mean Platelet Volume 11.4 FL Neutrophils (%) (Auto) 66.0 % Lymphocytes (%) (Auto) 23.4 % Monocytes (%) (Auto) 7.6 % Eosinophils (%) (Auto) 2.1 % Basophils (%) (Auto) 0.9 % Neutrophils # (Auto) 4.4 TH/MM3 Lymphocytes # (Auto) 1.6 TH/MM3 Monocytes # (Auto) 0.5 TH/MM3 Eosinophils # (Auto) 0.1 TH/MM3 Basophils # (Auto) 0.1 TH/MM3 CBC Comment DIFF FINAL Differential Comment Vitals/IOs Vital Signs Date Time Temp Pulse Resp B/P Pulse Ox O2 Delivery O2 Flow Rate FiO2 02/10/17 05:40 98.6 74 17 149/86 94 Intake and Output 02/09/17 02/09/17 02/10/17 08:00 16:00 00:00 Intake Total 240 ml 480 ml Balance 240 ml 480 ml Assessment & Plan Problem List: (1) Schizoaffective disorder, bipolar type ICD Code: F25.0 (2) Acute medication-induced akathisia ICD Code: G25.89 Assessment & Plan Estimated LOS: days Justification for Cont. Inpt. Patient needs to continue psychiatric hospitalization for stabilization and safety Request HC Surrog/Guard Advoc?: No Wilver Valdivia MD February 10, 2017 12:44
[2017-02-10 20:35] VITALS: BP 132/77; PULSE 82; RESP 18; TEMP 98; O2SAT 98
[2017-02-10] MEDS: REMOVE OLD NICOTINE PATCH T-DERMAL SCH (21:00)
[2017-02-10] MEDS: ATORVASTATIN 20 MG TAB PO SCH (21:22)
[2017-02-10] MEDS: traZODone HCL 50 MG TAB PO SCH (21:23)
[2017-02-11] MEDS: PROPRANOLOL HCL 10 MG TAB PO SCH ×3 (04:00→21:33)
[2017-02-11 05:34] VITALS: BP 135/76; PULSE 72; RESP 18; TEMP 97.4
[2017-02-11] MEDS: THIAMINE HCL 100 MG TAB PO SCH (09:00)
[2017-02-11] MEDS: ARIPiprazole 30 MG TAB PO SCH (09:20)
[2017-02-11] MEDS: ASPIRIN EC 81 MG TABEC PO SCH (09:20)
[2017-02-11] MEDS: METOPROLOL TARTRATE 25 MG TAB PO SCH ×2 (09:20→21:31)
[2017-02-11] MEDS: NICOTINE 21 MG/24 HR PATCH T-DERMAL SCH (09:20)
[2017-02-11] MEDS: clonazePAM 0.5 MG TAB PO SCH ×2 (09:21→21:00)
[2017-02-11] MEDS: NIFEdipine 30 MG SUSTAINED RELEASE TAB PO SCH (09:21)
[2017-02-11] MEDS: BENZTROPINE MESYLATE 1 MG TAB PO SCH ×2 (09:21→21:34)
--- NOTE | 2017-02-11 16:43 | HHI.PYPN ---
Subjective Remarks Patient seen in [facility] walking with walker. Continues to focus on attempting plans to return to his trailer, now saying he would C and a in the help him. I feel this is all manipulation attempt to influence our recommendations for placement. Patient compliant medications for now continue treatment no change Review of Systems Except as stated in HPI: all other systems reviewed are Neg Objective Alert: Yes [place]: Person, Place Mood: Calm Affect: Flat (remains flat) Memory Intact: Comment (not assessed today) Hallucinations: Other (remains internally preoccupied) Delusions: Yes Delusion Type: Paranoid Suicidal: Ideation (no SI) Homicidal: Ideation (no HI) Insight/Judgment Very poor Vitals/IOs Vital Signs Date Time Temp Pulse Resp B/P Pulse Ox O2 Delivery O2 Flow Rate FiO2 02/11/17 05:34 97.4 72 18 135/76 02/10/17 20:35 98 Intake and Output 02/10/17 02/10/17 02/11/17 08:00 16:00 00:00 Intake Total 0 ml 720 ml 240 ml Balance 0 ml 720 ml 240 ml Assessment & Plan Problem List: (1) Schizoaffective disorder, bipolar type ICD Code: F25.0 (2) Acute medication-induced akathisia ICD Code: G25.89 Assessment & Plan Estimated LOS: days patient is somewhat paranoid and psychotic, though compliant medications. Showing no insight into his issues for now continue treatment Justification for Cont. Inpt. At this time patient will decompensate if placed in lower level of care Discharge Planning To be determined Request HC Surrog/Guard Advoc?: No Justin Ivy MD February 11, 2017 16:43
[2017-02-11 19:45] VITALS: BP 104/64; PULSE 89; RESP 18; TEMP 97.1; O2SAT 97
[2017-02-11] MEDS: REMOVE OLD NICOTINE PATCH T-DERMAL SCH (21:00)
[2017-02-11] MEDS: ATORVASTATIN 20 MG TAB PO SCH (21:00)
[2017-02-11] MEDS: traZODone HCL 50 MG TAB PO SCH (21:33)
[2017-02-11] MEDS: LORazepam 2 MG/ML VIAL IM PRN (23:23)
[2017-02-12] MEDS: PROPRANOLOL HCL 10 MG TAB PO SCH ×3 (05:00→20:00)
[2017-02-12 05:15] VITALS: BP 126/85; PULSE 98; RESP 16; TEMP 97.8; O2SAT 99
[2017-02-12] MEDS: NICOTINE 21 MG/24 HR PATCH T-DERMAL SCH (09:00)
[2017-02-12] MEDS: ASPIRIN EC 81 MG TABEC PO SCH (09:19)
[2017-02-12] MEDS: clonazePAM 0.5 MG TAB PO SCH ×2 (09:19→20:42)
[2017-02-12] MEDS: NIFEdipine 30 MG SUSTAINED RELEASE TAB PO SCH (09:20)
[2017-02-12] MEDS: METOPROLOL TARTRATE 25 MG TAB PO SCH ×2 (09:20→20:42)
[2017-02-12] MEDS: ARIPiprazole 30 MG TAB PO SCH (09:20)
[2017-02-12] MEDS: BENZTROPINE MESYLATE 1 MG TAB PO SCH ×2 (09:20→20:42)
[2017-02-12] MEDS: THIAMINE HCL 100 MG TAB PO SCH (09:20)
--- NOTE | 2017-02-12 14:14 | HHI.PYPN ---
Subjective Remarks Patient seen in [facility] with nurse Jeremie, counselor Li. Patient showing some improved affect today. His posture has improved eye contact has improved with color in his face has improved. He is more verbal, less mumbling more focused to his responses. Is also showing a brief moment of humor. Perhaps we should monitor this improvement to see about its consistency and persistency. And maybe consider a less restrictive placement of the [facility] if at all possible Review of Systems Except as stated in HPI: all other systems reviewed are Neg Objective Alert: Yes [place]: Person, Place Mood: Calm Affect: Flat (remains flat) Memory Intact: Comment (not assessed today) Hallucinations: Other (remains internally preoccupied) Delusions: Yes Delusion Type: Paranoid Suicidal: Ideation (no SI) Homicidal: Ideation (no HI) Insight/Judgment Poor Vitals/IOs Vital Signs Date Time Temp Pulse Resp B/P Pulse Ox O2 Delivery O2 Flow Rate FiO2 02/12/17 05:15 97.8 98 16 126/85 99 Intake and Output 02/11/17 02/11/17 02/11/17 07:59 15:59 23:59 Intake Total 480 ml 2400 ml Balance 480 ml 2400 ml Assessment & Plan Problem List: (1) Schizoaffective disorder, bipolar type ICD Code: F25.0 (2) Acute medication-induced akathisia ICD Code: G25.89 Assessment & Plan Estimated LOS: days patient showing some improvement in mood affect in focus, need to observe for consistency of this, compliant medication Justification for Cont. Inpt. At this time patient would decompensate if placed in a lower level of care Discharge Planning To be determined Request HC Surrog/Guard Advoc?: No Justin Ivy MD February 12, 2017 14:14
[2017-02-12] MEDS: traZODone HCL 50 MG TAB PO SCH (20:42)
[2017-02-12] MEDS: ATORVASTATIN 20 MG TAB PO SCH (20:42)
[2017-02-12] MEDS: REMOVE OLD NICOTINE PATCH T-DERMAL SCH (20:42)
[2017-02-13] MEDS: PROPRANOLOL HCL 10 MG TAB PO SCH ×3 (04:00→21:28)
[2017-02-13 06:23] VITALS: BP 160/98; PULSE 78; RESP 18; TEMP 97.4; O2SAT 98
[2017-02-13] MEDS: NIFEdipine 30 MG SUSTAINED RELEASE TAB PO SCH (08:16)
[2017-02-13] MEDS: clonazePAM 0.5 MG TAB PO SCH ×2 (08:16→21:28)
[2017-02-13] MEDS: BENZTROPINE MESYLATE 1 MG TAB PO SCH ×2 (08:16→21:28)
[2017-02-13] MEDS: ASPIRIN EC 81 MG TABEC PO SCH (08:16)
[2017-02-13] MEDS: ARIPiprazole 30 MG TAB PO SCH (08:16)
[2017-02-13] MEDS: METOPROLOL TARTRATE 25 MG TAB PO SCH ×2 (08:17→21:27)
[2017-02-13] MEDS: NICOTINE 21 MG/24 HR PATCH T-DERMAL SCH (08:18)
[2017-02-13] MEDS: THIAMINE HCL 100 MG TAB PO SCH (08:18)
--- NOTE | 2017-02-13 13:42 | HHI.PYPN ---
Subjective Remarks Patient seen in day room and the floor staff, chart review, patient appears to be adjusting to 2600 though there is some isolation and reluctance to interact with other patients. With me he continues to show the mild improvement in his affect and eye contact. Though staff states there is still some reluctance to full cooperation with medication. He is still showing marked resistance to discharge plans perhaps state hospital or an [facility]. For now continue treatment Review of Systems Except as stated in HPI: all other systems reviewed are Neg Objective Alert: Yes [place]: Person, Place Mood: Calm Affect: Flat (remains flat) Memory Intact: Comment (not assessed today) Hallucinations: Other (remains internally preoccupied) Delusions: Yes Delusion Type: Paranoid Suicidal: Ideation (no SI) Homicidal: Ideation (no HI) Insight/Judgment Poor Vitals/IOs Vital Signs Date Time Temp Pulse Resp B/P Pulse Ox O2 Delivery O2 Flow Rate FiO2 02/13/17 06:23 97.4 78 18 160/98 98 Assessment & Plan Problem List: (1) Schizoaffective disorder, bipolar type ICD Code: F25.0 (2) Acute medication-induced akathisia ICD Code: G25.89 Assessment & Plan Estimated LOS: days patient continues to show resistance to treatment and placement issues. He shows no insight into the chronicity and prior behaviors that led to the situation. Compliant medication Justification for Cont. Inpt. At this time patient will decompensate placed on lower level of care Discharge Planning To be determined Request HC Surrog/Guard Advoc?: No Justin Ivy MD February 13, 2017 13:42
[2017-02-13 17:10] VITALS: BP 124/84; PULSE 80; RESP 18; TEMP 98.2; O2SAT 95
[2017-02-13] MEDS: REMOVE OLD NICOTINE PATCH T-DERMAL SCH (21:00)
[2017-02-13] MEDS: ATORVASTATIN 20 MG TAB PO SCH (21:28)
[2017-02-13] MEDS: traZODone HCL 50 MG TAB PO SCH (21:28)
[2017-02-14] MEDS: PROPRANOLOL HCL 10 MG TAB PO SCH ×3 (04:20→20:42)
[2017-02-14 05:00] VITALS: BP 137/97; PULSE 77; RESP 18; TEMP 97.8; O2SAT 94
[2017-02-14 06:00] VITALS: BP 137/97; PULSE 77; RESP 16; TEMP 98; O2SAT 94
[2017-02-14] MEDS: NICOTINE 21 MG/24 HR PATCH T-DERMAL SCH (09:00)
[2017-02-14] MEDS: clonazePAM 0.5 MG TAB PO SCH ×2 (09:27→20:42)
[2017-02-14] MEDS: METOPROLOL TARTRATE 25 MG TAB PO SCH ×2 (09:28→20:42)
[2017-02-14] MEDS: NIFEdipine 30 MG SUSTAINED RELEASE TAB PO SCH (09:28)
[2017-02-14] MEDS: ASPIRIN EC 81 MG TABEC PO SCH (09:28)
[2017-02-14] MEDS: ARIPiprazole 30 MG TAB PO SCH (09:28)
[2017-02-14] MEDS: BENZTROPINE MESYLATE 1 MG TAB PO SCH ×2 (09:28→20:43)
[2017-02-14] MEDS: THIAMINE HCL 100 MG TAB PO SCH (09:29)
--- NOTE | 2017-02-14 14:01 | HHI.PYPN ---
Subjective Remarks Patient seen in his room with nurse Elly, chart review, compliant medications. Patient continues showing more verbal output focus then prior eye contact is slightly improved will today's somewhat more irritable wanting to return to his prior home with his friend help care for him. When images past failures on discharge became somewhat irritable and angry. But he is able to process it somewhat for now continue treatment Review of Systems Except as stated in HPI: all other systems reviewed are Neg Objective Alert: Yes [place]: Person, Place Mood: Calm Affect: Flat (remains flat) Memory Intact: Comment (not assessed today) Hallucinations: Other (remains internally preoccupied) Delusions: Yes Delusion Type: Paranoid Suicidal: Ideation (no SI) Homicidal: Ideation (no HI) Insight/Judgment Poor Vitals/IOs Vital Signs Date Time Temp Pulse Resp B/P Pulse Ox O2 Delivery O2 Flow Rate FiO2 02/14/17 06:00 98.0 77 16 137/97 94 Intake and Output 02/13/17 02/13/17 02/13/17 07:59 15:59 23:59 Intake Total 360 ml Balance 360 ml Assessment & Plan Problem List: (1) Schizoaffective disorder, bipolar type ICD Code: F25.0 (2) Acute medication-induced akathisia ICD Code: G25.89 Assessment & Plan Estimated LOS: days patient continues vigilant and irritable, compliant medications, but somewhat more verbal Justification for Cont. Inpt. At this time patient will decompensate if placed in a lower level of care Discharge Planning To be determined Request HC Surrog/Guard Advoc?: No Justin Ivy MD February 14, 2017 14:01
[2017-02-14 18:00] VITALS: BP 115/85; PULSE 83; RESP 18; TEMP 98.1; O2SAT 97
[2017-02-14] MEDS: traZODone HCL 50 MG TAB PO SCH (20:41)
[2017-02-14] MEDS: ATORVASTATIN 20 MG TAB PO SCH (20:42)
[2017-02-14] MEDS: REMOVE OLD NICOTINE PATCH T-DERMAL SCH (20:43)
[2017-02-15] MEDS: PROPRANOLOL HCL 10 MG TAB PO SCH ×3 (04:00→20:15)
[2017-02-15 05:08] VITALS: BP 134/83; PULSE 69; RESP 16; TEMP 98; O2SAT 99
[2017-02-15] MEDS: NICOTINE 21 MG/24 HR PATCH T-DERMAL SCH (09:00)
[2017-02-15] MEDS: clonazePAM 0.5 MG TAB PO SCH ×2 (09:26→20:15)
[2017-02-15] MEDS: ASPIRIN EC 81 MG TABEC PO SCH (09:26)
[2017-02-15] MEDS: BENZTROPINE MESYLATE 1 MG TAB PO SCH ×2 (09:26→20:15)
[2017-02-15] MEDS: METOPROLOL TARTRATE 25 MG TAB PO SCH ×2 (09:26→20:15)
[2017-02-15] MEDS: NIFEdipine 30 MG SUSTAINED RELEASE TAB PO SCH (09:26)
[2017-02-15] MEDS: THIAMINE HCL 100 MG TAB PO SCH (09:26)
[2017-02-15] MEDS: ARIPiprazole 30 MG TAB PO SCH (09:26)
--- NOTE | 2017-02-15 12:59 | HHI.PYPN ---
Subjective Remarks Patient seen in [facility] nurse Elly, today patient somewhat more angry and irritable showing some increased paranoia feeling some increased resistance to compliant with medications. And some increase in delays and verbal response. This appears to show his significant inability to maintain himself. confirming the referral to the [facility] for now continue treatment Review of Systems Except as stated in HPI: all other systems reviewed are Neg Objective Alert: Yes [place]: Person, Place Mood: Calm Affect: Flat (remains flat) Memory Intact: Comment (not assessed today) Hallucinations: Other (remains internally preoccupied) Delusions: Yes Delusion Type: Paranoid Suicidal: Ideation (no SI) Homicidal: Ideation (no HI) Insight/Judgment Very poor Vitals/IOs Vital Signs Date Time Temp Pulse Resp B/P Pulse Ox O2 Delivery O2 Flow Rate FiO2 02/15/17 05:08 98.0 69 16 134/83 99 Assessment & Plan Problem List: (1) Schizoaffective disorder, bipolar type ICD Code: F25.0 (2) Acute medication-induced akathisia ICD Code: G25.89 Assessment & Plan Estimated LOS: days patient is guarded psychotic today with increased psychotic behavior and noncompliance medication Justification for Cont. Inpt. At this time patient will decompensate and placed in a lower level of care Discharge Planning To be determined Request HC Surrog/Guard Advoc?: No Justin Ivy MD February 15, 2017 12:59
[2017-02-15 17:54] VITALS: BP 157/93; PULSE 94; RESP 18; TEMP 97.9; O2SAT 95
[2017-02-15] MEDS: ATORVASTATIN 20 MG TAB PO SCH (20:15)
[2017-02-15] MEDS: traZODone HCL 50 MG TAB PO SCH (20:15)
[2017-02-15] MEDS: REMOVE OLD NICOTINE PATCH T-DERMAL SCH (20:17)
[2017-02-16] MEDS: PROPRANOLOL HCL 10 MG TAB PO SCH ×3 (03:32→21:25)
[2017-02-16 04:41] VITALS: BP 144/96; PULSE 76; RESP 18; TEMP 97.9; O2SAT 97
[2017-02-16] MEDS: ASPIRIN EC 81 MG TABEC PO SCH (08:33)
[2017-02-16] MEDS: ARIPiprazole 30 MG TAB PO SCH (08:33)
[2017-02-16] MEDS: METOPROLOL TARTRATE 25 MG TAB PO SCH ×2 (08:33→21:25)
[2017-02-16] MEDS: clonazePAM 0.5 MG TAB PO SCH ×2 (08:33→21:25)
[2017-02-16] MEDS: BENZTROPINE MESYLATE 1 MG TAB PO SCH ×2 (08:34→21:25)
[2017-02-16] MEDS: NIFEdipine 30 MG SUSTAINED RELEASE TAB PO SCH (08:34)
[2017-02-16] MEDS: THIAMINE HCL 100 MG TAB PO SCH (08:36)
[2017-02-16] MEDS: NICOTINE 21 MG/24 HR PATCH T-DERMAL SCH (08:36)
--- NOTE | 2017-02-16 13:52 | HHI.PYPN ---
Subjective Remarks Patient was seen and case discussed with nursing. Patient is slightly more interactive compared to her last visits. Spontaneous speech. Is asking about discharge to his buddies. When asked the names of his friends he could not tell me. He is grossly confused and disorganized. Compliant with medications. Denies auditory visual hallucinations Objective Alert: Yes [place]: Person, Place Mood: Calm Affect: Restricted Memory Intact: Comment (not assessed today) Hallucinations: Other (remains internally preoccupied) Delusions: Yes Delusion Type: Other (internally stimulated) Suicidal: Ideation (no SI) Homicidal: Ideation (no HI) Insight/Judgment Poor Vitals/IOs Vital Signs Date Time Temp Pulse Resp B/P Pulse Ox O2 Delivery O2 Flow Rate FiO2 02/16/17 04:41 97.9 76 18 144/96 97 Assessment & Plan Problem List: (1) Schizoaffective disorder, bipolar type ICD Code: F25.0 (2) Acute medication-induced akathisia ICD Code: G25.89 Assessment & Plan Continue current treatment plan Justification for Cont. Inpt. Patient will decompensate in a less restrictive setting Request HC Surrog/Guard Advoc?: No Kurt Garcia DO February 16, 2017 13:52
[2017-02-16 16:35] VITALS: BP 130/85; PULSE 89; RESP 18; TEMP 96.8; O2SAT 98
[2017-02-16] MEDS: REMOVE OLD NICOTINE PATCH T-DERMAL SCH (21:00)
[2017-02-16] MEDS: traZODone HCL 50 MG TAB PO SCH (21:25)
[2017-02-16] MEDS: ATORVASTATIN 20 MG TAB PO SCH (21:25)
[2017-02-17] MEDS: PROPRANOLOL HCL 10 MG TAB PO SCH ×3 (05:05→20:54)
[2017-02-17 05:48] VITALS: BP 136/83; PULSE 84; RESP 18; TEMP 98.3; O2SAT 95
[2017-02-17] MEDS: BENZTROPINE MESYLATE 1 MG TAB PO SCH ×2 (08:18→20:54)
[2017-02-17] MEDS: METOPROLOL TARTRATE 25 MG TAB PO SCH ×2 (08:18→20:55)
[2017-02-17] MEDS: ARIPiprazole 30 MG TAB PO SCH (08:19)
[2017-02-17] MEDS: clonazePAM 0.5 MG TAB PO SCH ×2 (08:19→20:54)
[2017-02-17] MEDS: THIAMINE HCL 100 MG TAB PO SCH (08:19)
[2017-02-17] MEDS: NIFEdipine 30 MG SUSTAINED RELEASE TAB PO SCH (08:19)
[2017-02-17] MEDS: NICOTINE 21 MG/24 HR PATCH T-DERMAL SCH (08:21)
[2017-02-17] MEDS: ASPIRIN EC 81 MG TABEC PO SCH (09:00)
--- NOTE | 2017-02-17 14:36 | HHI.PYPN ---
Subjective Remarks Patient was seen and case discussed with nursing. Patient remains internally preoccupied and for this interview perseverant on discharge. Medications reviewed and he is on aspirin with a low platelet count. We will repeat the CBC. Denies auditory visual hallucinations. Behaving well on the unit Objective Alert: Yes [place]: Person, Place Mood: Calm Affect: Restricted Memory Intact: Comment (not assessed today) Hallucinations: Other (remains internally preoccupied) Delusions: Yes Delusion Type: Other (internally stimulated) Suicidal: Ideation (no SI) Homicidal: Ideation (no HI) Insight/Judgment Poor Vitals/IOs Vital Signs Date Time Temp Pulse Resp B/P Pulse Ox O2 Delivery O2 Flow Rate FiO2 02/17/17 05:48 98.3 84 18 136/83 95 Assessment & Plan Problem List: (1) Schizoaffective disorder, bipolar type ICD Code: F25.0 (2) Acute medication-induced akathisia ICD Code: G25.89 Assessment & Plan Continue current treatment plan Justification for Cont. Inpt. Patient will decompensate in a less restrictive setting Request HC Surrog/Guard Advoc?: No Kurt Garcia DO February 17, 2017 14:36
[2017-02-17 20:18] VITALS: BP 131/75; PULSE 88; RESP 18; TEMP 98.1; O2SAT 96
[2017-02-17] MEDS: traZODone HCL 50 MG TAB PO SCH (20:54)
[2017-02-17] MEDS: ATORVASTATIN 20 MG TAB PO SCH (20:54)
[2017-02-17] MEDS: REMOVE OLD NICOTINE PATCH T-DERMAL SCH (20:57)
[2017-02-18] MEDS: PROPRANOLOL HCL 10 MG TAB PO SCH ×3 (04:44→21:11)
[2017-02-18 05:21] VITALS: BP 127/83; PULSE 74; RESP 16; TEMP 96.3; O2SAT 97
[2017-02-18 08:04] LABS: AUTOMATED NEUTROPHIL # 3.2 TH/MM3 (1.8-7.7); BASOPHIL # 0.1 TH/MM3 (0-0.2); BASOPHIL % 1.6 % (0.0-2.0); EOSINOPHIL # 0.3 TH/MM3 (0-0.4); EOSINOPHIL % 4.7 % (0.0-4.0); HEMATOCRIT 40.5 % (39.0-51.0); HEMO FLAGS DIFF FINAL; LYMPH % 33.1 % (9.0-44.0); LYMPHOCYTE # 2.1 TH/MM3 (1.0-4.8); MEAN CELL VOLUME 89.7 FL (80.0-100.0); MEAN CORPUSCULAR HEMOGLOBIN 28.2 PG (27.0-34.0); MEAN CORPUSCULAR HGB CONC 31.5 % (32.0-36.0); MONO % 8.8 % (0.0-8.0); NEUT % 51.8 % (16.0-70.0); PLATELET COUNT 100 TH/MM3 (150-450); RED BLOOD COUNT 4.51 MIL/MM3 (4.50-5.90); RED CELL DISTRIBUTION WIDTH 14.4 % (11.6-17.2); WHITE BLOOD COUNT 6.2 TH/MM3 (4.0-11.0)
[2017-02-18] MEDS: METOPROLOL TARTRATE 25 MG TAB PO SCH ×2 (08:25→21:12)
[2017-02-18] MEDS: BENZTROPINE MESYLATE 1 MG TAB PO SCH ×2 (08:25→21:12)
[2017-02-18] MEDS: THIAMINE HCL 100 MG TAB PO SCH (08:25)
[2017-02-18] MEDS: clonazePAM 0.5 MG TAB PO SCH ×2 (08:25→21:12)
[2017-02-18] MEDS: NIFEdipine 30 MG SUSTAINED RELEASE TAB PO SCH (08:26)
[2017-02-18] MEDS: ARIPiprazole 30 MG TAB PO SCH (08:26)
[2017-02-18] MEDS: NICOTINE 21 MG/24 HR PATCH T-DERMAL SCH (09:00)
[2017-02-18] MEDS: ASPIRIN EC 81 MG TABEC PO SCH (09:00)
--- NOTE | 2017-02-18 14:38 | HHI.PYPN ---
Subjective Remarks Patient seen in [facility] with floor staff, chart reviewed somewhat calm with me today but continues to focus on discharge showing no insight into his behaviors and the reasoning for the referral to the [facility]. Review the lab show a slow decrease the platelet count since admission will reconsult hospitalist to assess that Review of Systems Except as stated in HPI: all other systems reviewed are Neg Objective Alert: Yes [place]: Person, Place Mood: Calm Affect: Restricted Memory Intact: Comment (not assessed today) Hallucinations: Other (remains internally preoccupied) Delusions: Yes Delusion Type: Other (internally stimulated) Suicidal: Ideation (no SI) Homicidal: Ideation (no HI) Insight/Judgment Very poor Labs Test 02/18/17 06:57 White Blood Count 6.2 TH/MM3 Red Blood Count 4.51 MIL/MM3 Hemoglobin 12.7 GM/DL Hematocrit 40.5 % Mean Corpuscular Volume 89.7 FL Mean Corpuscular Hemoglobin 28.2 PG Mean Corpuscular Hemoglobin 31.5 % Concent Red Cell Distribution Width 14.4 % Platelet Count 100 TH/MM3 Mean Platelet Volume 11.9 FL Neutrophils (%) (Auto) 51.8 % Lymphocytes (%) (Auto) 33.1 % Monocytes (%) (Auto) 8.8 % Eosinophils (%) (Auto) 4.7 % Basophils (%) (Auto) 1.6 % Neutrophils # (Auto) 3.2 TH/MM3 Lymphocytes # (Auto) 2.1 TH/MM3 Monocytes # (Auto) 0.5 TH/MM3 Eosinophils # (Auto) 0.3 TH/MM3 Basophils # (Auto) 0.1 TH/MM3 CBC Comment DIFF FINAL Differential Comment Vitals/IOs Vital Signs Date Time Temp Pulse Resp B/P Pulse Ox O2 Delivery O2 Flow Rate FiO2 02/18/17 05:21 96.3 74 16 127/83 97 Assessment & Plan Problem List: (1) Schizoaffective disorder, bipolar type ICD Code: F25.0 (2) Acute medication-induced akathisia ICD Code: G25.89 Assessment & Plan Estimated LOS: days patient continues somewhat paranoid and vigilant showing no insight into his issues. Will reconsult hospitalist to check patient's platelet count Justification for Cont. Inpt. At this time patient decompensated placed in a lower level of care Discharge Planning To be determined Request HC Surrog/Guard Advoc?: No Justin Ivy MD February 18, 2017 14:38
--- NOTE | 2017-02-18 20:08 | HHI.PR ---
Subjective Remarks reconsult for thrombocytopenia. Patient cannot provide much history denies cp/sob Objective Vitals Vital Signs Date Time Temp Pulse Resp B/P Pulse Ox O2 Delivery O2 Flow Rate FiO2 02/18/17 05:21 96.3 74 16 127/83 97 02/17/17 20:18 98.1 88 18 131/75 96 Result Diagram: 02/18/17 0657 Imaging Last Impressions Chest X-Ray 01/20/17 0000 Signed Impressions: Service Date/Time: Friday, January 20, 2017 21:49 - CONCLUSION: The lungs are clear. Josué Henning MD Objective Remarks GENERAL: This is a well-nourished, well-developed patient, in no apparent distress. HEENT: Normocephalic. Pupils equal round and reactive. Nose without bleeding. Airway patent. NECK: Trachea midline. No JVD. Supple. CARDIOVASCULAR: Regular rate and rhythm without murmurs, gallops, or rubs. RESPIRATORY: Clear to auscultation. Breath sounds equal bilaterally. No wheezes , rales, or rhonchi. GASTROINTESTINAL: Abdomen soft, non-tender, nondistended. Bowel Sounds normoactive x4. MUSCULOSKELETAL: Extremities without clubbing, cyanosis, bilateral lower extremity +1 edema. NEUROLOGICAL: Awake and alert. Flat affect. No focal neuro deficit. MANUEL. Normal speech. Medications and IVs Current Medications Medications (Trade) Dose Ordered Sig/Mesha Route Start Time Stop Time Status Last Admin (Ativan Inj) 1 mg Q6H PRN IM 01/17/17 22:00 02/11/17 23:23 (Habitrol 21 Mg Patch.24 Hr) 1 patch DAILY T-DERMAL 01/18/17 09:00 02/11/17 09:20 Miscellaneous Information 1 HS T-DERMAL 01/18/17 21:00 02/04/17 20:26 (Tylenol) 650 mg Q4H PRN PO 01/18/17 11:15 (Milk Of Magnesia Liq) 30 ml DAILY PRN PO 01/18/17 11:15 (Mag-Al Plus Susp Liq) 30 ml Q6H PRN PO 01/18/17 11:15 (Ecotrin Ec) 81 mg DAILY PO 01/19/17 09:00 02/16/17 08:33 (Lipitor) 20 mg HS PO 01/18/17 21:00 02/17/17 20:54 (Lopressor) 75 mg BID PO 01/18/17 21:00 02/18/17 08:25 (Procardia Xl) 30 mg DAILY PO 01/19/17 09:00 02/18/17 08:26 (Inderal) 10 mg Q8H PO 01/18/17 12:00 02/18/17 12:00 (Desyrel) 100 mg HS PO 01/18/17 21:00 02/17/17 20:54 (Vitamin B1) 100 mg DAILY PO 01/18/17 14:15 02/18/17 08:25 (KlonoPIN) 0.5 mg Q12HR PO 01/30/17 21:00 02/18/17 08:25 (Abilify) 30 mg DAILY PO 02/01/17 09:00 02/18/17 08:26 (Cogentin) 1 mg BID PO 02/01/17 21:00 02/18/17 08:25 Urinary Catheter: No A/P Problem List: (1) Schizoaffective disorder, bipolar type ICD Code: F25.0 Status: Chronic (2) Tobacco abuse ICD Code: Z72.0 Status: Chronic (3) Transaminitis ICD Code: R74.0 Status: Acute (4) Hypertension ICD Code: I10 Status: Chronic Assessment and Plan 66-year-old male with past medical history of hypertension, atrial fibrillation , depression, schizophrenia, anxiety and HLD who is an inpatient at psychiatric facility and hospitalist services have been consulted for medical management. Schizophrenia - Management per psychiatric team Recent hospitalization for hepatic encephalopathy and rhabdomyolysis - encourage po intake - ammonia level was 24 on 01/16 - last CK 363 (highest was 1420) - monitor LFTs and kidney function Transaminitis - secondary to above - Negative hepatitis panel - resolved. ALT and AST normal. - continue to monitor HTN - Continue with metoprolol 75 mg twice a day - Nifedipine 30 mg daily - Bp stable. A. fib, rate controlled - Hold ASA for now due to thrombocytopenia. - Nifedipine, metoprolol Bilateral lower extremity edema - Bilateral YADIRA hose - Leg elevation at rest Thrombocytopenia - Seems to be acute. Platelets on admission on 01/19 145K, now down to 100 K. - I will consult hematology and obtain an abdominal ultrasound to assess for hypersplenism. - Continue to monitor CBC. Will obtain CMP is a.m. as well DVT prophylaxis: Patient ambulatory Julián Lucas MD February 18, 2017 20:08
[2017-02-18] MEDS: REMOVE OLD NICOTINE PATCH T-DERMAL SCH (21:00)
[2017-02-18] MEDS: ATORVASTATIN 20 MG TAB PO SCH (21:11)
[2017-02-18] MEDS: traZODone HCL 50 MG TAB PO SCH (21:12)
[2017-02-18 21:32] VITALS: PULSE 136; RESP 16; TEMP 98.7; O2SAT 100
[2017-02-19] MEDS: PROPRANOLOL HCL 10 MG TAB PO SCH ×3 (04:32→20:24)
[2017-02-19 05:30] VITALS: BP 144/89; PULSE 60; RESP 18; TEMP 97.4; O2SAT 96
[2017-02-19 08:48] VITALS: PULSE 105
[2017-02-19] MEDS: clonazePAM 0.5 MG TAB PO SCH ×2 (08:54→20:24)
[2017-02-19] MEDS: ASPIRIN EC 81 MG TABEC PO SCH (08:54)
[2017-02-19] MEDS: NIFEdipine 30 MG SUSTAINED RELEASE TAB PO SCH (08:54)
[2017-02-19] MEDS: ARIPiprazole 30 MG TAB PO SCH (08:55)
[2017-02-19] MEDS: BENZTROPINE MESYLATE 1 MG TAB PO SCH ×2 (08:55→20:24)
[2017-02-19] MEDS: NICOTINE 21 MG/24 HR PATCH T-DERMAL SCH (08:55)
[2017-02-19] MEDS: THIAMINE HCL 100 MG TAB PO SCH (08:55)
[2017-02-19] MEDS: METOPROLOL TARTRATE 25 MG TAB PO SCH ×2 (08:55→20:24)
[2017-02-19 12:43] VITALS: PULSE 79
--- NOTE | 2017-02-19 13:28 | HHI.PYPN ---
Subjective Remarks Patient seen in dayroom with floor staff, patient continues showing no insight into his disease, though is compliant with medication. Continues to talk about discharge home on willing to except his history of failure at less restrictive settings. Continue to [facility] Review of Systems Except as stated in HPI: all other systems reviewed are Neg Objective Alert: Yes [place]: Person, Place Mood: Calm Affect: Restricted Memory Intact: Comment (not assessed today) Hallucinations: Other (remains internally preoccupied) Delusions: Yes Delusion Type: Other (internally stimulated) Suicidal: Ideation (no SI) Homicidal: Ideation (no HI) Insight/Judgment Very Poor Vitals/IOs Vital Signs Date Time Temp Pulse Resp B/P Pulse Ox O2 Delivery O2 Flow Rate FiO2 02/19/17 12:43 79 02/19/17 05:30 97.4 18 144/89 96 Assessment & Plan Problem List: (1) Schizoaffective disorder, bipolar type ICD Code: F25.0 (2) Acute medication-induced akathisia ICD Code: G25.89 Assessment & Plan Estimated LOS: days patient continues vigilant somewhat paranoid. Compliant medication. Still little insight. Continue to await word from [facility] Justification for Cont. Inpt. At this time patient will decompensate if placed a lower level of care Discharge Planning To be determined Request HC Surrog/Guard Advoc?: No Justin Ivy MD February 19, 2017 13:28
[2017-02-19 17:54] VITALS: BP 146/74; PULSE 73; RESP 18; TEMP 98.2; O2SAT 97
[2017-02-19] MEDS: ATORVASTATIN 20 MG TAB PO SCH (20:25)
[2017-02-19] MEDS: traZODone HCL 50 MG TAB PO SCH (20:25)
[2017-02-19] MEDS: REMOVE OLD NICOTINE PATCH T-DERMAL SCH (20:29)
[2017-02-20] MEDS: PROPRANOLOL HCL 10 MG TAB PO SCH ×3 (04:00→20:44)
[2017-02-20 04:58] VITALS: BP 137/77; PULSE 72; RESP 20; TEMP 98.2; O2SAT 96
--- NOTE | 2017-02-20 05:35 | MB ---
cc: ALEXANDRO JUNG M.D. DATE OF CONSULTATION 02/19/2017 REASON FOR CONSULTATION Consult requested by hospitalist for evaluation of thrombocytopenia. HISTORY OF PRESENT ILLNESS Joe is a 66-year-old male. He is currently [facility] and he is in the Psych Unit for schizophrenia. He has been in the hospital for more than a month. He has been on antipsychotic medications. He had a CBC yesterday which showed a white count of 6.2, hemoglobin 12.7 and platelet count of 100. This was compared to the admission CBC on January 19. At that time his platelet count was 145. Because of the worsening thrombocytopenia, I have been asked to see him. The patient denies any bleeding episodes. He is a very poor historian. He was very scared when I approached him. He does not want to participate in the interview. I tried to talk to him but he became agitated and was trying to walk away from me. REVIEW OF SYSTEMS Review of systems is not possible due to the patient's psychotic history. History is obtained through review of the records. PAST MEDICAL HISTORY Reported in the chart as - 1. Hypertension. 2. Atrial fibrillation. 3. Hypercholesterolemia. 4. Schizophrenia 5. Anxiety depression. PAST SURGICAL HISTORY Eye surgery. ALLERGIES None. MEDICATIONS 1. Metoprolol. 2. Cogentin. 3. Nicotine. 4. Aspirin. 5. Procardia. 6. Thiamine. 7. . 8. Lipitor. 9. Desyrel. 10. Klonopin. 11. Inderal. 12. Ativan. FAMILY HISTORY Unable to obtain. SOCIAL HISTORY Unable to obtain. PHYSICAL EXAMINATION GENERAL: He is a well-developed, psychotic patient. VITAL SIGNS: Temperature 97.4, heart rate 60, blood pressure 144/89. Full examination is unable to be performed as the patient does not want to participate in the examination. He got really scared when I was talking to him. He thinks that I will do something bad to him. Clearly has paranoid schizophrenia. LABORATORY DATA The CBC showed white of 6.2, hemoglobin 12.7, hematocrit 40.5, platelet count is 100. Differential count is normal. ASSESSMENT Isolated worsening thrombocytopenia. The differential is chronic ITP versus secondary to medications. PLAN I have reviewed his available records. The patient has progressive thrombocytopenia, but he is not symptomatic. He does not have any bleeding. He does not have any bruises or petechia. No treatment is indicated such as platelet transfusion at this time. Most likely the cause of thrombocytopenia is drug-induced, especially with psychotic medications that can cause thrombocytopenia. I will leave it up to the psychiatrist to adjust the antipsychotic medications. The other possibility could be ITP but usually treatment for ITP is steroid only when the platelet count drops below 30, so he does not require any treatment at this time even if this turns out to be ITP. I will order hepatitis profile, HIV, FRANCHESKA and rheumatoid factor to evaluate for any other cause of the thrombocytopenia. I will also repeat the CBC in the morning. He is schedule for abdominal ultrasound in the morning. Further recommendation based on his hospital stay. Thank you for asking my opinion. MD ANH Jimenez/RONAL /11:52 PM /5:16 AM SHRUTHI
[2017-02-20 07:40] LABS: AUTOMATED NEUTROPHIL # 4.6 TH/MM3 (1.8-7.7); BASOPHIL # 0.1 TH/MM3 (0-0.2); BASOPHIL % 1.1 % (0.0-2.0); EOSINOPHIL # 0.2 TH/MM3 (0-0.4); EOSINOPHIL % 2.4 % (0.0-4.0); HEMATOCRIT 39.2 % (39.0-51.0); HEMO FLAGS DIFF FINAL; LYMPH % 29.8 % (9.0-44.0); LYMPHOCYTE # 2.4 TH/MM3 (1.0-4.8); MEAN CELL VOLUME 88.4 FL (80.0-100.0); MEAN CORPUSCULAR HEMOGLOBIN 29.3 PG (27.0-34.0); MEAN CORPUSCULAR HGB CONC 33.1 % (32.0-36.0); NEUT % 56.7 % (16.0-70.0); PLATELET COUNT 105 TH/MM3 (150-450); RED BLOOD COUNT 4.43 MIL/MM3 (4.50-5.90); RED CELL DISTRIBUTION WIDTH 14.4 % (11.6-17.2); WHITE BLOOD COUNT 8.1 TH/MM3 (4.0-11.0)
[2017-02-20 08:13] LABS: ALKALINE PHOSPHATASE 92 U/L (45-117); ALT (GPT) 24 U/L (12-78); ANION GAP 5 MEQ/L (5-15); AST (GOT) 14 U/L (15-37); BICARBONATE 29.6 MEQ/L (21.0-32.0); BLOOD UREA NITROGEN 24 MG/DL (7-18); CHLORIDE 108 MEQ/L (98-107); GLOMERULAR FILTRATION RATE 66 ML/MIN (>89); POTASSIUM 4.2 MEQ/L (3.5-5.1); SODIUM (NA) 143 MEQ/L (136-145); TOTAL BILIRUBIN ADULT 0.5 MG/DL (0.2-1.0)
[2017-02-20] MEDS: NICOTINE 21 MG/24 HR PATCH T-DERMAL SCH (09:00)
[2017-02-20] MEDS: ARIPiprazole 30 MG TAB PO SCH (09:10)
[2017-02-20] MEDS: ASPIRIN EC 81 MG TABEC PO SCH (09:10)
[2017-02-20] MEDS: METOPROLOL TARTRATE 25 MG TAB PO SCH ×2 (09:10→20:44)
[2017-02-20] MEDS: THIAMINE HCL 100 MG TAB PO SCH (09:10)
[2017-02-20] MEDS: BENZTROPINE MESYLATE 1 MG TAB PO SCH ×2 (09:10→20:44)
[2017-02-20] MEDS: clonazePAM 0.5 MG TAB PO SCH ×2 (09:10→20:44)
[2017-02-20] MEDS: NIFEdipine 30 MG SUSTAINED RELEASE TAB PO SCH (09:11)
--- NOTE | 2017-02-20 11:18 | HHI.PYPN ---
Subjective Remarks Patient seen in [facility] with nurse Alondra, chart reviewed. Patient compliant medications however continues to have no insight into pleased inability to live independently. He continues to state that he has friends who will come and live with him and help take care of him. I stated that we need to talk to these people for would even believe him. For now continue treatment. Continue to await word from [facility] Review of Systems Except as stated in HPI: all other systems reviewed are Neg Objective Alert: Yes [place]: Person, Place Mood: Calm Affect: Restricted Memory Intact: Comment (not assessed today) Hallucinations: Other (remains internally preoccupied) Delusions: Yes Delusion Type: Other (internally stimulated) Suicidal: Ideation (no SI) Homicidal: Ideation (no HI) Insight/Judgment Very poor Labs Test 02/20/17 06:56 White Blood Count 8.1 TH/MM3 Red Blood Count 4.43 MIL/MM3 Hemoglobin 13.0 GM/DL Hematocrit 39.2 % Mean Corpuscular Volume 88.4 FL Mean Corpuscular Hemoglobin 29.3 PG Mean Corpuscular Hemoglobin 33.1 % Concent Red Cell Distribution Width 14.4 % Platelet Count 105 TH/MM3 Mean Platelet Volume 11.6 FL Neutrophils (%) (Auto) 56.7 % Lymphocytes (%) (Auto) 29.8 % Monocytes (%) (Auto) 10.0 % Eosinophils (%) (Auto) 2.4 % Basophils (%) (Auto) 1.1 % Neutrophils # (Auto) 4.6 TH/MM3 Lymphocytes # (Auto) 2.4 TH/MM3 Monocytes # (Auto) 0.8 TH/MM3 Eosinophils # (Auto) 0.2 TH/MM3 Basophils # (Auto) 0.1 TH/MM3 CBC Comment DIFF FINAL Differential Comment Sodium Level 143 MEQ/L Potassium Level 4.2 MEQ/L Chloride Level 108 MEQ/L Carbon Dioxide Level 29.6 MEQ/L Anion Gap 5 MEQ/L Blood Urea Nitrogen 24 MG/DL Creatinine 1.12 MG/DL Estimat Glomerular Filtration 66 ML/MIN Rate Random Glucose 87 MG/DL Calcium Level 9.2 MG/DL Total Bilirubin 0.5 MG/DL Aspartate Amino Transf 14 U/L (AST/SGOT) Alanine Aminotransferase 24 U/L (ALT/SGPT) Alkaline Phosphatase 92 U/L Total Protein 6.5 GM/DL Albumin 3.4 GM/DL Vitals/IOs Vital Signs Date Time Temp Pulse Resp B/P Pulse Ox O2 Delivery O2 Flow Rate FiO2 02/20/17 04:58 98.2 72 20 137/77 96 Intake and Output 02/19/17 02/19/17 02/20/17 08:00 16:00 00:00 Intake Total 240 ml Balance 240 ml Assessment & Plan Problem List: (1) Schizoaffective disorder, bipolar type ICD Code: F25.0 (2) Acute medication-induced akathisia ICD Code: G25.89 Assessment & Plan Estimated LOS: days patient continue psychotic and delusional, no insight. For now continue treatment Justification for Cont. Inpt. At this time patient will decompensate if placed at a lower level of care Discharge Planning To be determined Request HC Surrog/Guard Advoc?: No Justin Ivy MD February 20, 2017 11:18
--- NOTE | 2017-02-20 13:28 | RADRPT ---
EXAM DATE/TIME: 02/20/2017 12:19 [place] COMPARISON: No previous studies available for comparison. INDICATIONS : Thrombocytopenia. MEDICAL HISTORY : Cardiovascular disease. Hypertension. Diabetes mellitus type 2.COPD SURGICAL HISTORY : None. ENCOUNTER: Initial ACUITY: 1 day PAIN SCORE: 0/10 LOCATION: Bilateral upper quadrant MEASUREMENTS: LIVER: 17.3 cm length Non-visualized FINDINGS: LIVER: Normal echotexture without focal lesion or ductal dilatation. COMMON DUCT: No intraluminal mass or stone visualized. GALLBLADDER: Not imaged PANCREAS: The visualized portions are within normal limits. RIGHT KIDNEY: Patient refused imaging LEFT KIDNEY: Patient refused imaging SPLEEN: Patient refused imaging AORTA: Patient refused imaging IVC: Patient refused imaging CONCLUSION: Very limited evaluation because of lack of patient cooperation. Justin Guzman MD on February 20, 2017 at 13:23 Board Certified Radiologist. This report was verified electronically.
--- NOTE | 2017-02-20 17:54 | HHI.PR ---
Subjective Remarks patient states that he does not want to be seen states feels well denies melena, hematochezia vital signs stable Objective Vitals Vital Signs Date Time Temp Pulse Resp B/P Pulse Ox O2 Delivery O2 Flow Rate FiO2 02/20/17 04:58 98.2 72 20 137/77 96 02/19/17 17:54 98.2 73 18 146/74 97 I/O 02/19/17 02/19/17 02/19/17 02/20/17 02/20/17 02/20/17 07:00 15:00 23:00 07:00 15:00 23:00 Intake Total 240 ml Balance 240 ml Intake Oral 240 ml Result Diagram: 02/20/17 0656 02/20/17 0656 Imaging Last Impressions Abdomen Ultrasound 02/20/17 0000 Signed Impressions: Service Date/Time: Monday, February 20, 2017 12:19 - CONCLUSION: Very limited evaluation because of lack of patient cooperation. Justin Guzman MD Chest X-Ray 01/20/17 0000 Signed Impressions: Service Date/Time: Friday, January 20, 2017 21:49 - CONCLUSION: The lungs are clear. Josué Henning MD Objective Remarks GENERAL: This is a well-nourished, well-developed patient, in no apparent distress. HEENT: Normocephalic. Pupils equal round and reactive. Nose without bleeding. Airway patent. NECK: Trachea midline. No JVD. Supple. CARDIOVASCULAR: Regular rate and rhythm without murmurs, gallops, or rubs. RESPIRATORY: Clear to auscultation. Breath sounds equal bilaterally. No wheezes , rales, or rhonchi. GASTROINTESTINAL: Abdomen soft, non-tender, nondistended. Bowel Sounds normoactive x4. MUSCULOSKELETAL: Extremities without clubbing, cyanosis, bilateral lower extremity +1 edema. NEUROLOGICAL: Awake and alert. Flat affect. No focal neuro deficit. MANUEL. Normal speech. Procedures none Medications and IVs Current Medications Medications (Trade) Dose Ordered Sig/Mesha Route Start Time Stop Time Status Last Admin (Ativan Inj) 1 mg Q6H PRN IM 01/17/17 22:00 02/11/17 23:23 (Habitrol 21 Mg Patch.24 Hr) 1 patch DAILY T-DERMAL 01/18/17 09:00 02/11/17 09:20 Miscellaneous Information 1 HS T-DERMAL 01/18/17 21:00 02/04/17 20:26 (Tylenol) 650 mg Q4H PRN PO 01/18/17 11:15 (Milk Of Magnesia Liq) 30 ml DAILY PRN PO 01/18/17 11:15 (Mag-Al Plus Susp Liq) 30 ml Q6H PRN PO 01/18/17 11:15 (Ecotrin Ec) 81 mg DAILY PO 01/19/17 09:00 02/20/17 09:10 (Lipitor) 20 mg HS PO 01/18/17 21:00 02/19/17 20:25 (Lopressor) 75 mg BID PO 01/18/17 21:00 02/20/17 09:10 (Procardia Xl) 30 mg DAILY PO 01/19/17 09:00 02/20/17 09:11 (Inderal) 10 mg Q8H PO 01/18/17 12:00 02/20/17 12:47 (Desyrel) 100 mg HS PO 01/18/17 21:00 02/19/17 20:25 (Vitamin B1) 100 mg DAILY PO 01/18/17 14:15 02/20/17 09:10 (KlonoPIN) 0.5 mg Q12HR PO 01/30/17 21:00 02/20/17 09:10 (Abilify) 30 mg DAILY PO 02/01/17 09:00 02/20/17 09:10 (Cogentin) 1 mg BID PO 02/01/17 21:00 02/20/17 09:10 Urinary Catheter: No Vascular Central Line Catheter: No A/P Problem List: (1) Schizoaffective disorder, bipolar type ICD Code: F25.0 Status: Chronic (2) Tobacco abuse ICD Code: Z72.0 Status: Chronic (3) Transaminitis ICD Code: R74.0 Status: Acute (4) Hypertension ICD Code: I10 Status: Chronic Assessment and Plan 66-year-old male with past medical history of hypertension, atrial fibrillation , depression, schizophrenia, anxiety and HLD who is an inpatient at psychiatric facility and hospitalist services have been consulted for medical management. Schizophrenia - Management per psychiatric team Recent hospitalization for hepatic encephalopathy and rhabdomyolysis - encourage po intake - ammonia level was 24 on 01/16 - last CK 363 (highest was 1420) - monitor LFTs and kidney function Transaminitis - secondary to above - Negative hepatitis panel - resolved. ALT and AST normal. - continue to monitor HTN - Continue with metoprolol 75 mg twice a day - Nifedipine 30 mg daily - Bp stable. A. fib, rate controlled - Hold ASA for now due to thrombocytopenia. - Nifedipine, metoprolol Bilateral lower extremity edema - Bilateral YADIRA hose - Leg elevation at rest Thrombocytopenia -Platelets on admission on 01/19 145K down to 100 K. -Consulted hematology. Appreciate recommendations. No specific treatment. Most likely drug-induced. -Platelets stable today at 105K. Continue to monitor CBC. -Follow-up to factor, HIV antibody screen, hepatitis profile, FRANCHESKA screen. -Liver ultrasound did not show any liver abnormality and the patient did not allow for a proper exam therefore exam is limited. DVT prophylaxis: Patient ambulatory Julián Lucas MD February 20, 2017 17:54
[2017-02-20 18:03] VITALS: BP 147/80; PULSE 74; RESP 18; TEMP 97.8; O2SAT 97
[2017-02-20] MEDS: ATORVASTATIN 20 MG TAB PO SCH (20:44)
[2017-02-20] MEDS: REMOVE OLD NICOTINE PATCH T-DERMAL SCH (20:44)
[2017-02-20] MEDS: traZODone HCL 50 MG TAB PO SCH (20:44)
--- NOTE | 2017-02-20 21:45 | PD.ONC.PN ---
Subjective Subjective Remarks no c/o offer Objective Data Date Time Temp Pulse Resp B/P Pulse Ox O2 Delivery O2 Flow Rate FiO2 02/20/17 18:03 97.8 74 18 147/80 97 02/20/17 04:58 98.2 72 20 137/77 96 Result Diagram: 02/20/17 0656 02/20/17 0656 Laboratory Results Laboratory Tests Test 02/20/17 06:56 White Blood Count 8.1 TH/MM3 Red Blood Count 4.43 MIL/MM3 Hemoglobin 13.0 GM/DL Hematocrit 39.2 % Mean Corpuscular Volume 88.4 FL Mean Corpuscular Hemoglobin 29.3 PG Mean Corpuscular Hemoglobin 33.1 % Concent Red Cell Distribution Width 14.4 % Platelet Count 105 TH/MM3 Mean Platelet Volume 11.6 FL Neutrophils (%) (Auto) 56.7 % Lymphocytes (%) (Auto) 29.8 % Monocytes (%) (Auto) 10.0 % Eosinophils (%) (Auto) 2.4 % Basophils (%) (Auto) 1.1 % Neutrophils # (Auto) 4.6 TH/MM3 Lymphocytes # (Auto) 2.4 TH/MM3 Monocytes # (Auto) 0.8 TH/MM3 Eosinophils # (Auto) 0.2 TH/MM3 Basophils # (Auto) 0.1 TH/MM3 CBC Comment DIFF FINAL Differential Comment Sodium Level 143 MEQ/L Potassium Level 4.2 MEQ/L Chloride Level 108 MEQ/L Carbon Dioxide Level 29.6 MEQ/L Anion Gap 5 MEQ/L Blood Urea Nitrogen 24 MG/DL Creatinine 1.12 MG/DL Estimat Glomerular Filtration 66 ML/MIN Rate Random Glucose 87 MG/DL Calcium Level 9.2 MG/DL Total Bilirubin 0.5 MG/DL Aspartate Amino Transf 14 U/L (AST/SGOT) Alanine Aminotransferase 24 U/L (ALT/SGPT) Alkaline Phosphatase 92 U/L Total Protein 6.5 GM/DL Albumin 3.4 GM/DL Imaging Studies Last 24 hours Impressions Abdomen Ultrasound 02/20/17 0000 Signed Impressions: Service Date/Time: Monday, February 20, 2017 12:19 - CONCLUSION: Very limited evaluation because of lack of patient cooperation. Justin Guzman MD Administered Medications Medications (Trade) Dose Ordered Sig/Mesha Route PRN Reason Start Time Stop Time Status Last Admin Dose Admin Lorazepam (Ativan Inj) 1 mg Q6H PRN IM MODERATE TO SEVERE ANXIETY 01/17/17 22:00 02/11/17 23:23 Nicotine (Habitrol 21 Mg Patch.24 Hr) 1 patch DAILY T-DERMAL 01/18/17 09:00 02/11/17 09:20 Miscellaneous Information 1 HS T-DERMAL 01/18/17 21:00 02/04/17 20:26 Aspirin (Ecotrin Ec) 81 mg DAILY PO 01/19/17 09:00 02/20/17 09:10 Atorvastatin Calcium (Lipitor) 20 mg HS PO 01/18/17 21:00 02/20/17 20:44 Metoprolol Tartrate (Lopressor) 75 mg BID PO 01/18/17 21:00 02/20/17 20:44 Nifedipine (Procardia Xl) 30 mg DAILY PO 01/19/17 09:00 02/20/17 09:11 Propranolol HCl (Inderal) 10 mg Q8H PO 01/18/17 12:00 02/20/17 20:44 Trazodone HCl (Desyrel) 100 mg HS PO 01/18/17 21:00 02/20/17 20:44 Thiamine HCl (Vitamin B1) 100 mg DAILY PO 01/18/17 14:15 02/20/17 09:10 Clonazepam (KlonoPIN) 0.5 mg Q12HR PO 01/30/17 21:00 02/20/17 20:44 Aripiprazole (Abilify) 30 mg DAILY PO 02/01/17 09:00 02/20/17 09:10 Benztropine Mesylate (Cogentin) 1 mg BID PO 02/01/17 21:00 02/20/17 20:44 Objective Remarks pt decline exam Assessment/Plan Problem List: (1) Thrombocytopenia Status: Acute Plan: This is most likely due to psychotic medications. Plat 105 today. w/u fo rthrombocytopenia is pending. US abd = pt decline. will follow. Jam Alexander MD February 20, 2017 21:45
[2017-02-21] MEDS: PROPRANOLOL HCL 10 MG TAB PO SCH ×3 (03:49→21:29)
[2017-02-21 05:37] VITALS: BP 136/78; PULSE 70; RESP 16; TEMP 98; O2SAT 96
[2017-02-21] MEDS: THIAMINE HCL 100 MG TAB PO SCH (08:29)
[2017-02-21] MEDS: ARIPiprazole 30 MG TAB PO SCH (08:29)
[2017-02-21] MEDS: clonazePAM 0.5 MG TAB PO SCH ×2 (08:29→21:27)
[2017-02-21] MEDS: METOPROLOL TARTRATE 25 MG TAB PO SCH ×2 (08:29→21:28)
[2017-02-21] MEDS: ASPIRIN EC 81 MG TABEC PO SCH (08:29)
[2017-02-21] MEDS: BENZTROPINE MESYLATE 1 MG TAB PO SCH ×2 (08:29→21:28)
[2017-02-21] MEDS: NIFEdipine 30 MG SUSTAINED RELEASE TAB PO SCH (08:29)
[2017-02-21] MEDS: NICOTINE 21 MG/24 HR PATCH T-DERMAL SCH (09:00)
[2017-02-21] MEDS: LORazepam 2 MG/ML VIAL IM PRN (09:29)
--- NOTE | 2017-02-21 13:39 | HHI.PYPN ---
Subjective Remarks Patient seen in dayroom with floor staff, chart reviewed. Patient somewhat more anxious and irritable today did needed ETO of Ativan today. Patient still somewhat irritable with me appears to be frustrated with [facility]. For now continue treatment no change Review of Systems Except as stated in HPI: all other systems reviewed are Neg Objective Alert: Yes [place]: Person, Place Mood: Calm Affect: Restricted Memory Intact: Comment (not assessed today) Hallucinations: Other (remains internally preoccupied) Delusions: Yes Delusion Type: Other (internally stimulated) Suicidal: Ideation (no SI) Homicidal: Ideation (no HI) Insight/Judgment Very poor Vitals/IOs Vital Signs Date Time Temp Pulse Resp B/P Pulse Ox O2 Delivery O2 Flow Rate FiO2 02/21/17 05:37 98.0 70 16 136/78 96 Assessment & Plan Problem List: (1) Schizoaffective disorder, bipolar type ICD Code: F25.0 (2) Acute medication-induced akathisia ICD Code: G25.89 Assessment & Plan Estimated LOS: days patient somewhat angry and anxious today did needed ETO today. Though overall his behavior remained somewhat stable. With significant questioning of the placement referral Justification for Cont. Inpt. At this time patient will decompensate if place at a lower level of care Discharge Planning To be determined Request HC Surrog/Guard Advoc?: No Justin Ivy MD February 21, 2017 13:39
--- NOTE | 2017-02-21 17:30 | HHI.PR ---
Subjective Remarks Patient denies any bleeding denies cp/sob refusing blood draws and to be examined and seen Objective Vitals Vital Signs Date Time Temp Pulse Resp B/P Pulse Ox O2 Delivery O2 Flow Rate FiO2 02/21/17 05:37 98.0 70 16 136/78 96 02/20/17 18:03 97.8 74 18 147/80 97 I/O 02/20/17 02/20/17 02/20/17 02/21/17 02/21/17 02/21/17 07:00 15:00 23:00 07:00 15:00 23:00 Intake Total 240 ml Balance 240 ml Intake Oral 240 ml Result Diagram: 02/20/17 0656 02/20/17 0656 Imaging Last Impressions Abdomen Ultrasound 02/20/17 0000 Signed Impressions: Service Date/Time: Monday, February 20, 2017 12:19 - CONCLUSION: Very limited evaluation because of lack of patient cooperation. Justin Guzman MD Chest X-Ray 01/20/17 0000 Signed Impressions: Service Date/Time: Friday, January 20, 2017 21:49 - CONCLUSION: The lungs are clear. Josué Henning MD Objective Remarks refuses to be examined Procedures none Medications and IVs Current Medications Medications (Trade) Dose Ordered Sig/Mesha Route Start Time Stop Time Status Last Admin (Ativan Inj) 1 mg Q6H PRN IM 01/17/17 22:00 02/21/17 09:29 (Habitrol 21 Mg Patch.24 Hr) 1 patch DAILY T-DERMAL 01/18/17 09:00 02/11/17 09:20 Miscellaneous Information 1 HS T-DERMAL 01/18/17 21:00 02/04/17 20:26 (Tylenol) 650 mg Q4H PRN PO 01/18/17 11:15 (Milk Of Magnesia Liq) 30 ml DAILY PRN PO 01/18/17 11:15 (Mag-Al Plus Susp Liq) 30 ml Q6H PRN PO 01/18/17 11:15 (Ecotrin Ec) 81 mg DAILY PO 01/19/17 09:00 02/21/17 08:29 (Lipitor) 20 mg HS PO 01/18/17 21:00 02/20/17 20:44 (Lopressor) 75 mg BID PO 01/18/17 21:00 02/21/17 08:29 (Procardia Xl) 30 mg DAILY PO 01/19/17 09:00 02/21/17 08:29 (Inderal) 10 mg Q8H PO 01/18/17 12:00 02/21/17 11:39 (Desyrel) 100 mg HS PO 01/18/17 21:00 02/20/17 20:44 (Vitamin B1) 100 mg DAILY PO 01/18/17 14:15 02/21/17 08:29 (KlonoPIN) 0.5 mg Q12HR PO 01/30/17 21:00 02/21/17 08:29 (Abilify) 30 mg DAILY PO 02/01/17 09:00 02/21/17 08:29 (Cogentin) 1 mg BID PO 02/01/17 21:00 02/21/17 08:29 Urinary Catheter: No Vascular Central Line Catheter: No A/P Problem List: (1) Schizoaffective disorder, bipolar type ICD Code: F25.0 Status: Chronic (2) Tobacco abuse ICD Code: Z72.0 Status: Chronic (3) Transaminitis ICD Code: R74.0 Status: Acute (4) Hypertension ICD Code: I10 Status: Chronic Assessment and Plan 66-year-old male with past medical history of hypertension, atrial fibrillation , depression, schizophrenia, anxiety and HLD who is an inpatient at psychiatric facility and hospitalist services have been consulted for medical management. Schizophrenia - Management per psychiatric team Recent hospitalization for hepatic encephalopathy and rhabdomyolysis - encourage po intake - ammonia level was 24 on 01/16 - last CK 363 (highest was 1420) - monitor LFTs and kidney function Transaminitis - secondary to above - Negative hepatitis panel - resolved. ALT and AST normal. - continue to monitor HTN - Continue with metoprolol 75 mg twice a day - Nifedipine 30 mg daily - Bp stable. A. fib, rate controlled - Hold ASA for now due to thrombocytopenia. - Nifedipine, metoprolol Bilateral lower extremity edema - Bilateral YADIRA hose - Leg elevation at rest Thrombocytopenia -Platelets on admission on 01/19 145K down to 100 K. -Consulted hematology. Appreciate recommendations. No specific treatment. Most likely drug-induced. -Platelets stable on 02/20 at 105K. Continue to monitor CBC. -Follow-up to factor, HIV antibody screen, hepatitis profile, FRANCHESKA screen - still pending and patient refusing blood draws. -Liver ultrasound did not show any liver abnormality and the patient did not allow for a proper exam therefore exam is limited. DVT prophylaxis: Patient ambulatory Patient refusing blood draws. will sign off please reconsult if needed. Monitor platelets regularly. Julián Lucas MD February 21, 2017 17:30
[2017-02-21 19:44] LABS: AUTOMATED NEUTROPHIL # 3.9 TH/MM3 (1.8-7.7); BASOPHIL # 0.1 TH/MM3 (0-0.2); BASOPHIL % 1.3 % (0.0-2.0); EOSINOPHIL # 0.2 TH/MM3 (0-0.4); EOSINOPHIL % 3.1 % (0.0-4.0); HEMO FLAGS DIFF FINAL; LYMPH % 30.2 % (9.0-44.0); LYMPHOCYTE # 2.1 TH/MM3 (1.0-4.8); MEAN CELL VOLUME 89.6 FL (80.0-100.0); MEAN CORPUSCULAR HEMOGLOBIN 28.6 PG (27.0-34.0); MEAN CORPUSCULAR HGB CONC 31.9 % (32.0-36.0); MONO % 9.2 % (0.0-8.0); NEUT % 56.2 % (16.0-70.0); PLATELET COUNT 113 TH/MM3 (150-450); RED BLOOD COUNT 4.46 MIL/MM3 (4.50-5.90); RED CELL DISTRIBUTION WIDTH 14.7 % (11.6-17.2)
[2017-02-21] MEDS: REMOVE OLD NICOTINE PATCH T-DERMAL SCH (21:00)
[2017-02-21] MEDS: traZODone HCL 50 MG TAB PO SCH (21:27)
[2017-02-21] MEDS: ATORVASTATIN 20 MG TAB PO SCH (21:28)
[2017-02-21 22:37] LABS: RHEUMATOID FACTOR TRIGGER LESS THAN 10.0 IU/ML (0.0-14.9)
--- NOTE | 2017-02-21 23:14 | PD.ONC.PN ---
Subjective Subjective Remarks no new c/o Objective Data Date Time Temp Pulse Resp B/P Pulse Ox O2 Delivery O2 Flow Rate FiO2 02/21/17 05:37 98.0 70 16 136/78 96 02/21/17 02/21/17 02/21/17 07:00 15:00 23:00 Intake Total 240 ml Balance 240 ml Result Diagram: 02/21/17 1845 02/20/17 0656 Laboratory Results Laboratory Tests Test 02/21/17 18:45 White Blood Count 7.0 TH/MM3 Red Blood Count 4.46 MIL/MM3 Hemoglobin 12.8 GM/DL Hematocrit 40.0 % Mean Corpuscular Volume 89.6 FL Mean Corpuscular Hemoglobin 28.6 PG Mean Corpuscular Hemoglobin 31.9 % Concent Red Cell Distribution Width 14.7 % Platelet Count 113 TH/MM3 Mean Platelet Volume 11.6 FL Neutrophils (%) (Auto) 56.2 % Lymphocytes (%) (Auto) 30.2 % Monocytes (%) (Auto) 9.2 % Eosinophils (%) (Auto) 3.1 % Basophils (%) (Auto) 1.3 % Neutrophils # (Auto) 3.9 TH/MM3 Lymphocytes # (Auto) 2.1 TH/MM3 Monocytes # (Auto) 0.6 TH/MM3 Eosinophils # (Auto) 0.2 TH/MM3 Basophils # (Auto) 0.1 TH/MM3 CBC Comment DIFF FINAL Differential Comment Rheumatoid Factor Screen NEGATIVE Rheumatoid Factor Titer IU/ML Administered Medications Medications (Trade) Dose Ordered Sig/Mesha Route PRN Reason Start Time Stop Time Status Last Admin Dose Admin Lorazepam (Ativan Inj) 1 mg Q6H PRN IM ANXIETY, unable to take PO 01/17/17 22:00 02/21/17 09:29 Nicotine (Habitrol 21 Mg Patch.24 Hr) 1 patch DAILY T-DERMAL 01/18/17 09:00 02/11/17 09:20 Miscellaneous Information 1 HS T-DERMAL 01/18/17 21:00 02/04/17 20:26 Aspirin (Ecotrin Ec) 81 mg DAILY PO 01/19/17 09:00 02/21/17 08:29 Atorvastatin Calcium (Lipitor) 20 mg HS PO 01/18/17 21:00 02/21/17 21:28 Metoprolol Tartrate (Lopressor) 75 mg BID PO 01/18/17 21:00 02/21/17 21:28 Nifedipine (Procardia Xl) 30 mg DAILY PO 01/19/17 09:00 02/21/17 08:29 Propranolol HCl (Inderal) 10 mg Q8H PO 01/18/17 12:00 02/21/17 21:29 Trazodone HCl (Desyrel) 100 mg HS PO 01/18/17 21:00 02/21/17 21:27 Thiamine HCl (Vitamin B1) 100 mg DAILY PO 01/18/17 14:15 02/21/17 08:29 Clonazepam (KlonoPIN) 0.5 mg Q12HR PO 01/30/17 21:00 02/21/17 21:27 Aripiprazole (Abilify) 30 mg DAILY PO 02/01/17 09:00 02/21/17 08:29 Benztropine Mesylate (Cogentin) 1 mg BID PO 02/01/17 21:00 02/21/17 21:28 Objective Remarks GENERAL: Well-nourished, well-developed patient. Decline exam l. Assessment/Plan Problem List: (1) Thrombocytopenia Status: Acute Plan: This is most likely due to psychotic medications. Plat 113 today. w/u for thrombocytopenia is pending. US abd = pt decline. RF neg, FRANCHESKA , hep panel, HIV are pending will follow. Jam Alexander MD February 21, 2017 23:14
[2017-02-22] MEDS: PROPRANOLOL HCL 10 MG TAB PO SCH ×3 (05:14→20:57)
[2017-02-22 06:44] VITALS: BP 118/83; PULSE 72; RESP 16; TEMP 96.8; O2SAT 98
[2017-02-22] MEDS: NICOTINE 21 MG/24 HR PATCH T-DERMAL SCH ×2 (09:00→10:00)
[2017-02-22] MEDS: METOPROLOL TARTRATE 25 MG TAB PO SCH ×2 (09:59→20:57)
[2017-02-22] MEDS: ASPIRIN EC 81 MG TABEC PO SCH (09:59)
[2017-02-22] MEDS: BENZTROPINE MESYLATE 1 MG TAB PO SCH ×2 (09:59→20:57)
[2017-02-22] MEDS: ARIPiprazole 30 MG TAB PO SCH (09:59)
[2017-02-22] MEDS: THIAMINE HCL 100 MG TAB PO SCH (10:00)
[2017-02-22] MEDS: NIFEdipine 30 MG SUSTAINED RELEASE TAB PO SCH (10:00)
[2017-02-22] MEDS: clonazePAM 0.5 MG TAB PO SCH ×2 (10:00→20:57)
[2017-02-22 11:21] LABS: ANA SCREEN NEG (NEG)
--- NOTE | 2017-02-22 12:41 | HHI.PYPN ---
Subjective Remarks Patient seen in day room with nurse Cristina crabtree. Patient compliant medication. Patient issue show some increased paranoia and irritability. Continues to focus on discharge it appears his resistance to the placement recommendation of the [facility] is becoming more prominent. For now continue treatment Review of Systems Except as stated in HPI: all other systems reviewed are Neg Objective Alert: Yes [place]: Person, Place Mood: Calm Affect: Restricted Memory Intact: Comment (not assessed today) Hallucinations: Other (remains internally preoccupied) Delusions: Yes Delusion Type: Other (internally stimulated) Suicidal: Ideation (no SI) Homicidal: Ideation (no HI) Insight/Judgment Very poor Labs Test 02/21/17 18:45 White Blood Count 7.0 TH/MM3 Red Blood Count 4.46 MIL/MM3 Hemoglobin 12.8 GM/DL Hematocrit 40.0 % Mean Corpuscular Volume 89.6 FL Mean Corpuscular Hemoglobin 28.6 PG Mean Corpuscular Hemoglobin 31.9 % Concent Red Cell Distribution Width 14.7 % Platelet Count 113 TH/MM3 Mean Platelet Volume 11.6 FL Neutrophils (%) (Auto) 56.2 % Lymphocytes (%) (Auto) 30.2 % Monocytes (%) (Auto) 9.2 % Eosinophils (%) (Auto) 3.1 % Basophils (%) (Auto) 1.3 % Neutrophils # (Auto) 3.9 TH/MM3 Lymphocytes # (Auto) 2.1 TH/MM3 Monocytes # (Auto) 0.6 TH/MM3 Eosinophils # (Auto) 0.2 TH/MM3 Basophils # (Auto) 0.1 TH/MM3 CBC Comment DIFF FINAL Differential Comment Rheumatoid Factor Screen NEGATIVE Rheumatoid Factor Titer IU/ML Anti-Nuclear Antibody Screen NEG Vitals/IOs Vital Signs Date Time Temp Pulse Resp B/P Pulse Ox O2 Delivery O2 Flow Rate FiO2 02/22/17 06:44 96.8 72 16 118/83 98 Intake and Output 02/21/17 02/21/17 02/22/17 08:00 16:00 00:00 Intake Total 390 ml Balance 390 ml Assessment & Plan Problem List: (1) Schizoaffective disorder, bipolar type ICD Code: F25.0 (2) Acute medication-induced akathisia ICD Code: G25.89 Assessment & Plan Estimated LOS: days patient remained psychotic paranoid somewhat vigilant. Truncation resistance towards accepting placement at the [facility] Justification for Cont. Inpt. At this time patient will decompensate the placed on lower level of care Discharge Planning To be determined Request HC Surrog/Guard Advoc?: No Justin Ivy MD February 22, 2017 12:41
[2017-02-22 17:47] VITALS: BP 139/80; PULSE 87; RESP 18; TEMP 98.6; O2SAT 98
[2017-02-22] MEDS: ATORVASTATIN 20 MG TAB PO SCH (20:57)
[2017-02-22] MEDS: traZODone HCL 50 MG TAB PO SCH (20:57)
[2017-02-22] MEDS: REMOVE OLD NICOTINE PATCH T-DERMAL SCH (21:00)
--- NOTE | 2017-02-22 21:05 | PD.ONC.PN ---
Subjective Subjective Remarks no new c/o Objective Data Date Time Temp Pulse Resp B/P Pulse Ox O2 Delivery O2 Flow Rate FiO2 02/22/17 17:47 98.6 87 18 139/80 98 02/22/17 06:44 96.8 72 16 118/83 98 02/22/17 02/22/17 02/22/17 07:00 15:00 23:00 Intake Total 0 ml 360 ml 480 ml Balance 0 ml 360 ml 480 ml Result Diagram: 02/21/17 1845 02/20/17 0656 Administered Medications Medications (Trade) Dose Ordered Sig/Mesha Route PRN Reason Start Time Stop Time Status Last Admin Dose Admin Lorazepam (Ativan Inj) 1 mg Q6H PRN IM ANXIETY, unable to take PO 01/17/17 22:00 02/21/17 09:29 Nicotine (Habitrol 21 Mg Patch.24 Hr) 1 patch DAILY T-DERMAL 01/18/17 09:00 02/11/17 09:20 Miscellaneous Information 1 HS T-DERMAL 01/18/17 21:00 02/04/17 20:26 Aspirin (Ecotrin Ec) 81 mg DAILY PO 01/19/17 09:00 02/22/17 09:59 Atorvastatin Calcium (Lipitor) 20 mg HS PO 01/18/17 21:00 02/22/17 20:57 Metoprolol Tartrate (Lopressor) 75 mg BID PO 01/18/17 21:00 02/22/17 20:57 Nifedipine (Procardia Xl) 30 mg DAILY PO 01/19/17 09:00 02/22/17 10:00 Propranolol HCl (Inderal) 10 mg Q8H PO 01/18/17 12:00 02/22/17 20:57 Trazodone HCl (Desyrel) 100 mg HS PO 01/18/17 21:00 02/22/17 20:57 Thiamine HCl (Vitamin B1) 100 mg DAILY PO 01/18/17 14:15 02/22/17 10:00 Clonazepam (KlonoPIN) 0.5 mg Q12HR PO 01/30/17 21:00 02/22/17 20:57 Aripiprazole (Abilify) 30 mg DAILY PO 02/01/17 09:00 02/22/17 09:59 Benztropine Mesylate (Cogentin) 1 mg BID PO 02/01/17 21:00 02/22/17 20:57 Objective Remarks GENERAL: Well-nourished, well-developed patient. Assessment/Plan Problem List: (1) Thrombocytopenia Status: Acute Plan: This is most likely due to psychotic medications. Plat 113 today. US abd = pt decline. RF neg, FRANCHESKA , hep panel, HIV all are negative. Has drug induce thrombocytopenia. Platelets are coming up. monitor plat count. Jam Alexander MD February 22, 2017 21:05
[2017-02-23] MEDS: PROPRANOLOL HCL 10 MG TAB PO SCH ×3 (04:00→21:11)
[2017-02-23 06:00] VITALS: BP 135/81; PULSE 74; RESP 16; TEMP 97.8
[2017-02-23] MEDS: ASPIRIN EC 81 MG TABEC PO SCH (08:24)
[2017-02-23] MEDS: NIFEdipine 30 MG SUSTAINED RELEASE TAB PO SCH (08:24)
[2017-02-23] MEDS: THIAMINE HCL 100 MG TAB PO SCH (08:24)
[2017-02-23] MEDS: BENZTROPINE MESYLATE 1 MG TAB PO SCH ×2 (08:24→21:11)
[2017-02-23] MEDS: ARIPiprazole 30 MG TAB PO SCH (08:24)
[2017-02-23] MEDS: clonazePAM 0.5 MG TAB PO SCH ×2 (08:24→21:12)
[2017-02-23] MEDS: METOPROLOL TARTRATE 25 MG TAB PO SCH ×2 (08:25→21:11)
[2017-02-23] MEDS: NICOTINE 21 MG/24 HR PATCH T-DERMAL SCH (08:25)
--- NOTE | 2017-02-23 11:32 | HHI.PYPN ---
Subjective Remarks Pt seen and discussed with staff. Pt remains paranoid and is agitated at times. He is very suspicious of medications and took them only with significant encouragement and coaxing by staff. He later asks MD to review medications and sign a paper stating that he doesn't need them. No SI/HI Objective Alert: Yes [place]: Person, Place Mood: Anxious Affect: Restricted Memory Intact: Comment (fair) Hallucinations: Other (remains internally preoccupied) Delusions: Yes Delusion Type: Paranoid Suicidal: Ideation (no SI) Homicidal: Ideation (no HI) Insight/Judgment poor Vitals/IOs Vital Signs Date Time Temp Pulse Resp B/P Pulse Ox O2 Delivery O2 Flow Rate FiO2 02/23/17 06:00 97.8 74 16 135/81 02/22/17 17:47 98 Intake and Output 02/22/17 02/22/17 02/23/17 08:00 16:00 00:00 Intake Total 0 ml 360 ml 960 ml Balance 0 ml 360 ml 960 ml Assessment & Plan Problem List: (1) Schizoaffective disorder, bipolar type ICD Code: F25.0 (2) Acute medication-induced akathisia ICD Code: G25.89 Assessment & Plan Continue current tx plan. Estimated LOS: days Justification for Cont. Inpt. impairments in reality construction. Request HC Surrog/Guard Advoc?: Ashley Ayala MD February 23, 2017 11:32
[2017-02-23 18:00] VITALS: BP 128/77; PULSE 84; RESP 18; TEMP 98.2; O2SAT 98
[2017-02-23] MEDS: REMOVE OLD NICOTINE PATCH T-DERMAL SCH (21:00)
[2017-02-23] MEDS: ATORVASTATIN 20 MG TAB PO SCH (21:12)
[2017-02-23] MEDS: traZODone HCL 50 MG TAB PO SCH (21:12)
[2017-02-24] MEDS: LORazepam 1 MG TAB PO PRN (00:40)
[2017-02-24] MEDS: PROPRANOLOL HCL 10 MG TAB PO SCH ×4 (05:24→21:08)
[2017-02-24 06:10] VITALS: BP 129/68; PULSE 73; RESP 17; TEMP 98.4; O2SAT 97
[2017-02-24] MEDS: NICOTINE 21 MG/24 HR PATCH T-DERMAL SCH (09:00)
[2017-02-24] MEDS: ARIPiprazole 30 MG TAB PO SCH (09:14)
[2017-02-24] MEDS: clonazePAM 0.5 MG TAB PO SCH ×3 (09:14→21:09)
[2017-02-24] MEDS: THIAMINE HCL 100 MG TAB PO SCH (09:14)
[2017-02-24] MEDS: BENZTROPINE MESYLATE 1 MG TAB PO SCH ×3 (09:14→21:08)
[2017-02-24] MEDS: NIFEdipine 30 MG SUSTAINED RELEASE TAB PO SCH (09:14)
[2017-02-24] MEDS: METOPROLOL TARTRATE 25 MG TAB PO SCH ×3 (09:14→21:08)
[2017-02-24] MEDS: ASPIRIN EC 81 MG TABEC PO SCH (09:14)
[2017-02-24 13:11] VITALS: BP 99/66; PULSE 78
--- NOTE | 2017-02-24 13:19 | HHI.PYPN ---
Subjective Remarks Pt seen and discussed with staff. He has been calm today. He remains paranoid about medications but was compliant. He has been isolative to his room. He denies pain or discomfort. No SI/HI Objective Alert: Yes [place]: Person, Place Mood: Calm Affect: Restricted Memory Intact: Comment (fair) Hallucinations: Other (remains internally preoccupied) Delusions: Yes Delusion Type: Paranoid Suicidal: Ideation (no SI) Homicidal: Ideation (no HI) Insight/Judgment poor Vitals/IOs Vital Signs Date Time Temp Pulse Resp B/P Pulse Ox O2 Delivery O2 Flow Rate FiO2 02/24/17 13:11 78 99/66 02/24/17 06:10 98.4 17 97 Intake and Output 02/23/17 02/23/17 02/24/17 08:00 16:00 00:00 Intake Total 120 ml 120 ml 600 ml Balance 120 ml 120 ml 600 ml Assessment & Plan Problem List: (1) Schizoaffective disorder, bipolar type ICD Code: F25.0 (2) Acute medication-induced akathisia ICD Code: G25.89 Assessment & Plan Continue current tx plan. Estimated LOS: days Justification for Cont. Inpt. impairments in self care and reality construction Request HC Surrog/Guard Advoc?: Ashley Ayala MD February 24, 2017 1:19 pm
[2017-02-24 20:00] VITALS: BP 146/85; PULSE 77; RESP 18; TEMP 96.7; O2SAT 100
[2017-02-24] MEDS: traZODone HCL 50 MG TAB PO SCH ×2 (21:00→21:08)
[2017-02-24] MEDS: REMOVE OLD NICOTINE PATCH T-DERMAL SCH (21:00)
[2017-02-24] MEDS: ATORVASTATIN 20 MG TAB PO SCH ×2 (21:00→21:08)
[2017-02-25] MEDS: PROPRANOLOL HCL 10 MG TAB PO SCH ×3 (04:00→21:53)
[2017-02-25 05:40] VITALS: BP 156/81; PULSE 92; RESP 20; TEMP 98.2; O2SAT 97
[2017-02-25] MEDS: METOPROLOL TARTRATE 25 MG TAB PO SCH ×2 (08:41→21:52)
[2017-02-25] MEDS: clonazePAM 0.5 MG TAB PO SCH ×2 (08:41→21:52)
[2017-02-25] MEDS: BENZTROPINE MESYLATE 1 MG TAB PO SCH ×2 (08:42→21:53)
[2017-02-25] MEDS: THIAMINE HCL 100 MG TAB PO SCH (08:42)
[2017-02-25] MEDS: ARIPiprazole 30 MG TAB PO SCH (08:42)
[2017-02-25] MEDS: NICOTINE 21 MG/24 HR PATCH T-DERMAL SCH (08:42)
[2017-02-25] MEDS: NIFEdipine 30 MG SUSTAINED RELEASE TAB PO SCH (08:42)
[2017-02-25] MEDS: ASPIRIN EC 81 MG TABEC PO SCH (08:42)
--- NOTE | 2017-02-25 09:17 | HHI.PYPN ---
Subjective Remarks Patient seen in [place] with floor staff patient continues with some mild increase in his irritability, seems anger with me related to placement issues and our discharge recommendations. He continues to show no insight into his disease. He is compliant with his medications. No other significant behavioral issues except some isolation at times some poor compliance with medications. Review of Systems Except as stated in HPI: all other systems reviewed are Neg Objective Alert: Yes [place]: Person, Place Mood: Calm Affect: Restricted Memory Intact: Comment (fair) Hallucinations: Other (remains internally preoccupied) Delusions: Yes Delusion Type: Paranoid Suicidal: Ideation (no SI) Homicidal: Ideation (no HI) Insight/Judgment Poor Vitals/IOs Vital Signs Date Time Temp Pulse Resp B/P Pulse Ox O2 Delivery O2 Flow Rate FiO2 02/25/17 05:40 98.2 92 20 156/81 97 Intake and Output 02/24/17 02/24/17 02/25/17 08:00 16:00 00:00 Intake Total 360 ml 600 ml 0 ml Balance 360 ml 600 ml 0 ml Assessment & Plan Problem List: (1) Schizoaffective disorder, bipolar type ICD Code: F25.0 (2) Acute medication-induced akathisia ICD Code: G25.89 Assessment & Plan Estimated LOS: days patient continues angry paranoid with some increased expression of his paranoia and psychosis. Though no significant behavioral problems. For now continue treatment Justification for Cont. Inpt. At this time patient will decompensate and placed in a lower level of care Discharge Planning To be determined Request HC Surrog/Guard Advoc?: No Justin Ivy MD February 25, 2017 09:17
[2017-02-25 18:21] VITALS: PULSE 109; RESP 20; TEMP 98.2; O2SAT 96
[2017-02-25] MEDS: REMOVE OLD NICOTINE PATCH T-DERMAL SCH (21:00)
[2017-02-25] MEDS: traZODone HCL 50 MG TAB PO SCH (21:52)
[2017-02-25] MEDS: ATORVASTATIN 20 MG TAB PO SCH (21:53)
[2017-02-26] MEDS: PROPRANOLOL HCL 10 MG TAB PO SCH ×3 (05:44→20:00)
[2017-02-26 06:10] VITALS: BP 110/67; PULSE 70; RESP 20; TEMP 97.6; O2SAT 98
[2017-02-26 08:50] LABS: AUTOMATED NEUTROPHIL # 5.5 TH/MM3 (1.8-7.7); BASOPHIL # 0.1 TH/MM3 (0-0.2); BASOPHIL % 1.5 % (0.0-2.0); EOSINOPHIL # 0.1 TH/MM3 (0-0.4); EOSINOPHIL % 1.6 % (0.0-4.0); HEMATOCRIT 39.3 % (39.0-51.0); HEMO FLAGS DIFF FINAL; LYMPH % 21.7 % (9.0-44.0); LYMPHOCYTE # 1.8 TH/MM3 (1.0-4.8); MEAN CELL VOLUME 88.3 FL (80.0-100.0); MEAN CORPUSCULAR HEMOGLOBIN 29.3 PG (27.0-34.0); MEAN CORPUSCULAR HGB CONC 33.2 % (32.0-36.0); NEUT % 66.2 % (16.0-70.0); PLATELET COUNT 125 TH/MM3 (150-450); RED BLOOD COUNT 4.45 MIL/MM3 (4.50-5.90); RED CELL DISTRIBUTION WIDTH 14.6 % (11.6-17.2); WHITE BLOOD COUNT 8.3 TH/MM3 (4.0-11.0)
[2017-02-26] MEDS: ASPIRIN EC 81 MG TABEC PO SCH (09:00)
[2017-02-26] MEDS: BENZTROPINE MESYLATE 1 MG TAB PO SCH ×2 (09:00→21:00)
[2017-02-26] MEDS: METOPROLOL TARTRATE 25 MG TAB PO SCH ×2 (09:00→21:00)
[2017-02-26] MEDS: NIFEdipine 30 MG SUSTAINED RELEASE TAB PO SCH (09:00)
[2017-02-26] MEDS: THIAMINE HCL 100 MG TAB PO SCH (09:00)
[2017-02-26] MEDS: clonazePAM 0.5 MG TAB PO SCH ×2 (09:00→21:00)
[2017-02-26] MEDS: ARIPiprazole 30 MG TAB PO SCH (09:00)
[2017-02-26] MEDS: NICOTINE 21 MG/24 HR PATCH T-DERMAL SCH (09:00)
[2017-02-26 09:32] LABS: ANION GAP 8 MEQ/L (5-15); AST (GOT) 20 U/L (15-37); BICARBONATE 26.6 MEQ/L (21.0-32.0); BLOOD UREA NITROGEN 29 MG/DL (7-18); CHLORIDE 107 MEQ/L (98-107); GLOMERULAR FILTRATION RATE 45 ML/MIN (>89); POTASSIUM 4.2 MEQ/L (3.5-5.1); SODIUM (NA) 142 MEQ/L (136-145)
[2017-02-26 09:36] LABS: ALKALINE PHOSPHATASE 83 U/L (45-117); ALT (GPT) 22 U/L (12-78); TOTAL BILIRUBIN ADULT 0.9 MG/DL (0.2-1.0)
[2017-02-26] MEDS: LORazepam 2 MG/ML VIAL IM PRN (12:14)
--- NOTE | 2017-02-26 13:02 | PD.ONC.PN ---
Subjective Subjective Remarks Afebrile overnight. Patient without bleeding or overnight events per nurse. He was moved to the medical psychiatry heart, presumably to facilitate blood draws or for accommodation of other patients on the psychiatry unit, per the nurse. Objective Data Date Time Temp Pulse Resp B/P Pulse Ox O2 Delivery O2 Flow Rate FiO2 02/26/17 06:10 97.6 70 20 110/67 98 02/25/17 18:21 98.2 109 20 96 02/26/17 02/26/17 02/26/17 07:00 15:00 23:00 Intake Total 480 ml Balance 480 ml Result Diagram: 02/26/1725 02/26/1725 Laboratory Results Laboratory Tests Test 02/26/17 08:25 White Blood Count 8.3 TH/MM3 Red Blood Count 4.45 MIL/MM3 Hemoglobin 13.0 GM/DL Hematocrit 39.3 % Mean Corpuscular Volume 88.3 FL Mean Corpuscular Hemoglobin 29.3 PG Mean Corpuscular Hemoglobin 33.2 % Concent Red Cell Distribution Width 14.6 % Platelet Count 125 TH/MM3 Mean Platelet Volume 10.7 FL Neutrophils (%) (Auto) 66.2 % Lymphocytes (%) (Auto) 21.7 % Monocytes (%) (Auto) 9.0 % Eosinophils (%) (Auto) 1.6 % Basophils (%) (Auto) 1.5 % Neutrophils # (Auto) 5.5 TH/MM3 Lymphocytes # (Auto) 1.8 TH/MM3 Monocytes # (Auto) 0.7 TH/MM3 Eosinophils # (Auto) 0.1 TH/MM3 Basophils # (Auto) 0.1 TH/MM3 CBC Comment DIFF FINAL Differential Comment Sodium Level 142 MEQ/L Potassium Level 4.2 MEQ/L Chloride Level 107 MEQ/L Carbon Dioxide Level 26.6 MEQ/L Anion Gap 8 MEQ/L Blood Urea Nitrogen 29 MG/DL Creatinine 1.55 MG/DL Estimat Glomerular Filtration 45 ML/MIN Rate Random Glucose 155 MG/DL Calcium Level 9.3 MG/DL Total Bilirubin 0.9 MG/DL Aspartate Amino Transf 20 U/L (AST/SGOT) Alanine Aminotransferase 22 U/L (ALT/SGPT) Alkaline Phosphatase 83 U/L Total Protein 6.6 GM/DL Albumin 3.6 GM/DL Administered Medications Medications (Trade) Dose Ordered Sig/Mesha Route PRN Reason Start Time Stop Time Status Last Admin Dose Admin Lorazepam (Ativan Inj) 1 mg Q6H PRN IM ANXIETY, unable to take PO 01/17/17 22:00 02/26/17 12:14 Nicotine (Habitrol 21 Mg Patch.24 Hr) 1 patch DAILY T-DERMAL 01/18/17 09:00 02/11/17 09:20 Miscellaneous Information 1 HS T-DERMAL 01/18/17 21:00 02/04/17 20:26 Aspirin (Ecotrin Ec) 81 mg DAILY PO 01/19/17 09:00 02/26/17 09:00 Atorvastatin Calcium (Lipitor) 20 mg HS PO 01/18/17 21:00 02/25/17 21:53 Metoprolol Tartrate (Lopressor) 75 mg BID PO 01/18/17 21:00 02/26/17 09:00 Nifedipine (Procardia Xl) 30 mg DAILY PO 01/19/17 09:00 02/26/17 09:00 Propranolol HCl (Inderal) 10 mg Q8H PO 01/18/17 12:00 02/26/17 05:44 Trazodone HCl (Desyrel) 100 mg HS PO 01/18/17 21:00 02/25/17 21:52 Thiamine HCl (Vitamin B1) 100 mg DAILY PO 01/18/17 14:15 02/26/17 09:00 Clonazepam (KlonoPIN) 0.5 mg Q12HR PO 01/30/17 21:00 02/26/17 09:00 Aripiprazole (Abilify) 30 mg DAILY PO 02/01/17 09:00 02/26/17 09:00 Benztropine Mesylate (Cogentin) 1 mg BID PO 02/01/17 21:00 02/26/17 09:00 Lorazepam (Ativan) 1 mg Q6H PRN PO ANXIETY 02/21/17 22:30 02/24/17 00:40 Objective Remarks GENERAL: Middle aged male, sitting up in chair in room, watching TV. He is somnolent, per nurse, just received ativan. SKIN: Warm and dry. HEAD: Normocephalic. EYES: No injection or drainage. NECK: Supple, trachea midline. CARDIOVASCULAR: +S1/S2 RESPIRATORY: Breath sounds equal bilaterally. No accessory muscle use. GASTROINTESTINAL: Abdomen soft, non-tender, nondistended. EXTREMITIES: No cyanosis. 2+ pitting edema. NEUROLOGICAL: awake and alert, somnolent. Assessment/Plan Problem List: (1) Thrombocytopenia Status: Acute Plan: 02/26: platelet count improving. monitor. --most likely due to psychotic medications. --platelet improved to 125 today --U/S abdomen: lack of patient cooperation limited examination. --RF, FRANCHESKA , hep panel, HIV all are negative. Attending Statement no new c/o Plat are coming up. Today 125. This is drug induce W/U for thrombocytopenia so far negative [place] February 26, 2017 13:02 Jam Alexander MD February 27, 2017 06:19
--- NOTE | 2017-02-26 14:50 | HHI.PYPN ---
Subjective Remarks Patient seen in his room the floor staff. Patient continues to show poor cooperation with continued anger irritability paranoia. There is poor eating for fluid intake and weight loss noted. This was discussed with the charge nurse, we feel patient would be best treated at the present time by transfer to to get more intensive medical attention to these issues. Review of Systems Except as stated in HPI: all other systems reviewed are Neg Objective Alert: Yes [place]: Person, Place Mood: Calm Affect: Restricted Memory Intact: Comment (fair) Hallucinations: Other (remains internally preoccupied) Delusions: Yes Delusion Type: Paranoid Suicidal: Ideation (no SI) Homicidal: Ideation (no HI) Insight/Judgment Very poor Labs Test 02/26/17 08:25 White Blood Count 8.3 TH/MM3 Red Blood Count 4.45 MIL/MM3 Hemoglobin 13.0 GM/DL Hematocrit 39.3 % Mean Corpuscular Volume 88.3 FL Mean Corpuscular Hemoglobin 29.3 PG Mean Corpuscular Hemoglobin 33.2 % Concent Red Cell Distribution Width 14.6 % Platelet Count 125 TH/MM3 Mean Platelet Volume 10.7 FL Neutrophils (%) (Auto) 66.2 % Lymphocytes (%) (Auto) 21.7 % Monocytes (%) (Auto) 9.0 % Eosinophils (%) (Auto) 1.6 % Basophils (%) (Auto) 1.5 % Neutrophils # (Auto) 5.5 TH/MM3 Lymphocytes # (Auto) 1.8 TH/MM3 Monocytes # (Auto) 0.7 TH/MM3 Eosinophils # (Auto) 0.1 TH/MM3 Basophils # (Auto) 0.1 TH/MM3 CBC Comment DIFF FINAL Differential Comment Sodium Level 142 MEQ/L Potassium Level 4.2 MEQ/L Chloride Level 107 MEQ/L Carbon Dioxide Level 26.6 MEQ/L Anion Gap 8 MEQ/L Blood Urea Nitrogen 29 MG/DL Creatinine 1.55 MG/DL Estimat Glomerular Filtration 45 ML/MIN Rate Random Glucose 155 MG/DL Calcium Level 9.3 MG/DL Total Bilirubin 0.9 MG/DL Aspartate Amino Transf 20 U/L (AST/SGOT) Alanine Aminotransferase 22 U/L (ALT/SGPT) Alkaline Phosphatase 83 U/L Total Protein 6.6 GM/DL Albumin 3.6 GM/DL Vitals/IOs Vital Signs Date Time Temp Pulse Resp B/P Pulse Ox O2 Delivery O2 Flow Rate FiO2 5/30/17 06:10 97.6 70 20 110/67 98 Intake and Output 02/25/17 02/25/17 02/26/17 08:00 16:00 00:00 Intake Total 960 ml 990 ml Balance 960 ml 990 ml Assessment & Plan Problem List: (1) Schizoaffective disorder, bipolar type ICD Code: F25.0 (2) Acute medication-induced akathisia ICD Code: G25.89 Assessment & Plan Estimated LOS: days patient continues irritable psychotic significant difficulties with nutrition and fluid intake. Patient to be transferred to E. for further care and attention Justification for Cont. Inpt. At this time patient decompensate the placed at a lower level of care Discharge Planning To be determined Request HC Surrog/Guard Advoc?: No Justin Ivy MD February 26, 2017 14:50
[2017-02-26 17:05] VITALS: BP 125/71; PULSE 76; RESP 18; TEMP 97.8; O2SAT 98
--- NOTE | 2017-02-26 20:57 | PD.CONS ---
HPI Service [facility] Hospitalists Consult Requested By Primary Care Physician [facility] Diagnoses: (1) Schizoaffective disorder, bipolar type (2) Tobacco abuse (3) Transaminitis (4) Hypertension History of Present Illness This is a 66-year-old male with past medical history of hypertension, atrial fibrillation, depression, schizophrenia, anxiety and HLD who is an inpatient at psychiatric facility and hospitalist services have been consulted for medical management. Patient was recently admitted 01/16/17 for toxic metabolic encephalopathy, levator cardiac enzymes, nontraumatic rhabdomyolysis, labile benign hypertension, transaminitis and elevated cardiac enzymes. Patient seen and examined today. Discussed with nursing staff who states patient is very unsteady. Patient denies any complaints of pain. He also denies any nausea/ vomiting, chills, cough, sore throat, chest pain, shortness of breath, abdominal pain, dysuria, diarrhea or constipation. Patient had a bowel movement about an hour ago. Past Family Social History Allergies: Coded Allergies: No Known Allergies (Verified , 01/16/17) Per pt. Physical Exam Vital Signs Vital Signs Date Time Temp Pulse Resp B/P Pulse Ox O2 Delivery O2 Flow Rate FiO2 02/26/17 17:05 97.8 76 18 125/71 98 02/26/17 06:10 97.6 70 20 110/67 98 Physical Exam GENERAL: This is a well-nourished, well-developed patient, in no apparent distress. SKIN: No rashes, ecchymoses or lesions. Cool and dry. HEAD: Atraumatic. Normocephalic. No temporal or scalp tenderness. EYES: Pupils equal round and reactive. Extraocular motions intact. No scleral icterus. No injection or drainage. ENT: Nose without bleeding, purulent drainage or septal hematoma. Throat without erythema, tonsillar hypertrophy or exudate. Uvula midline. Airway patent. NECK: Trachea midline. No JVD or lymphadenopathy. Supple, nontender, no meningeal signs. CARDIOVASCULAR: Regular rate and rhythm without murmurs, gallops, or rubs. RESPIRATORY: Clear to auscultation. Breath sounds equal bilaterally. No wheezes , rales, or rhonchi. GASTROINTESTINAL: Abdomen soft, non-tender, nondistended. No hepato-splenomegaly , or palpable masses. No guarding. MUSCULOSKELETAL: Extremities without clubbing, cyanosis, or edema. No joint tenderness, effusion, or edema noted. No calf tenderness. Negative Homans sign bilaterally. NEUROLOGICAL: Awake and alert. Cranial nerves II through XII intact. Motor and sensory grossly within normal limits. Five out of 5 muscle strength in all muscle groups. Normal speech. Laboratory Laboratory Tests Test 02/26/17 08:25 White Blood Count 8.3 Red Blood Count 4.45 Hemoglobin 13.0 Hematocrit 39.3 Mean Corpuscular Volume 88.3 Mean Corpuscular Hemoglobin 29.3 Mean Corpuscular Hemoglobin 33.2 Concent Red Cell Distribution Width 14.6 Platelet Count 125 Mean Platelet Volume 10.7 Neutrophils (%) (Auto) 66.2 Lymphocytes (%) (Auto) 21.7 Monocytes (%) (Auto) 9.0 Eosinophils (%) (Auto) 1.6 Basophils (%) (Auto) 1.5 Neutrophils # (Auto) 5.5 Lymphocytes # (Auto) 1.8 Monocytes # (Auto) 0.7 Eosinophils # (Auto) 0.1 Basophils # (Auto) 0.1 CBC Comment DIFF FINAL Differential Comment Sodium Level 142 Potassium Level 4.2 Chloride Level 107 Carbon Dioxide Level 26.6 Anion Gap 8 Blood Urea Nitrogen 29 Creatinine 1.55 Estimat Glomerular Filtration 45 Rate Random Glucose 155 Calcium Level 9.3 Total Bilirubin 0.9 Aspartate Amino Transf 20 (AST/SGOT) Alanine Aminotransferase 22 (ALT/SGPT) Alkaline Phosphatase 83 Total Protein 6.6 Albumin 3.6 Result Diagram: 02/26/1782402/26/17824 Assessment and Plan Problem List: (1) Schizoaffective disorder, bipolar type ICD Code: F25.0 Status: Chronic (2) Tobacco abuse ICD Code: Z72.0 Status: Chronic (3) Transaminitis ICD Code: R74.0 Status: Acute (4) Hypertension ICD Code: I10 Status: Chronic Carlos Lyons MD February 26, 2017 20:57
[2017-02-26] MEDS: REMOVE OLD NICOTINE PATCH T-DERMAL SCH (21:00)
[2017-02-26] MEDS: traZODone HCL 50 MG TAB PO SCH (21:00)
[2017-02-26] MEDS: ATORVASTATIN 20 MG TAB PO SCH (21:00)
[2017-02-26] MEDS: LORazepam 1 MG TAB PO PRN (21:24)
--- NOTE | 2017-02-26 21:37 | HHI.PR ---
Subjective Remarks Patient complaining of bilateral lower extremity swelling more so on the right side. Otherwise denies any dysphagia/odynophagia. He does report of some loss of appetite. However he states that he actually likes the food here and has been eating well. Nursing staff also confirms that patient has been coming to the nurse's station asking for food several times throughout the night. Patient reports of weight loss. Though cannot confirm how much. EMR recordings of weights showed in fact increase in weight. Objective Vital Signs Date Time Temp Pulse Resp B/P Pulse Ox O2 Delivery O2 Flow Rate FiO2 02/26/17 17:05 97.8 76 18 125/71 98 02/26/17 06:10 97.6 70 20 110/67 98 I/O 02/25/17 02/25/17 02/25/17 02/26/17 02/26/17 02/26/17 06:59 14:59 22:59 06:59 14:59 22:59 Intake Total 600 ml 360 ml 990 ml 480 ml Balance 600 ml 360 ml 990 ml 480 ml Intake Oral 360 ml 360 ml 990 ml 480 ml Oral Supplement 240 ml # Voids 1 1 1 2 Result Diagram: 02/26/17 0825 02/26/17 0825 Other Results Laboratory Tests Test 02/26/17 08:25 White Blood Count 8.3 Red Blood Count 4.45 Hemoglobin 13.0 Hematocrit 39.3 Mean Corpuscular Volume 88.3 Mean Corpuscular Hemoglobin 29.3 Mean Corpuscular Hemoglobin 33.2 Concent Red Cell Distribution Width 14.6 Platelet Count 125 Mean Platelet Volume 10.7 Neutrophils (%) (Auto) 66.2 Lymphocytes (%) (Auto) 21.7 Monocytes (%) (Auto) 9.0 Eosinophils (%) (Auto) 1.6 Basophils (%) (Auto) 1.5 Neutrophils # (Auto) 5.5 Lymphocytes # (Auto) 1.8 Monocytes # (Auto) 0.7 Eosinophils # (Auto) 0.1 Basophils # (Auto) 0.1 CBC Comment DIFF FINAL Differential Comment Sodium Level 142 Potassium Level 4.2 Chloride Level 107 Carbon Dioxide Level 26.6 Anion Gap 8 Blood Urea Nitrogen 29 Creatinine 1.55 Estimat Glomerular Filtration 45 Rate Random Glucose 155 Calcium Level 9.3 Total Bilirubin 0.9 Aspartate Amino Transf 20 (AST/SGOT) Alanine Aminotransferase 22 (ALT/SGPT) Alkaline Phosphatase 83 Total Protein 6.6 Albumin 3.6 Vital Signs Date Time Temp Pulse Resp B/P Pulse Ox O2 Delivery O2 Flow Rate FiO2 02/27/17 05:12 98.1 90 18 152/88 98 I/O 02/26/17 02/26/17 02/27/17 08:00 16:00 00:00 Intake Total 480 ml 600 ml Balance 480 ml 600 ml Objective Remarks Patient awake, alert, oriented. Pleasant. Walking around the unit. Heart rate is regular, no murmur appreciated. Lungs are clear. Equal air entry bilaterally. No wheezing. Abdomen is distended, but soft and nontender. No rebound. No guarding. Lower extremities reveal significant 3+ pitting edema up to mid thighs. Right calf is significantly bigger than the left. A/P Assessment and Plan Medical team was reconsulted for bilateral lower extremity edema and complained of weight loss. Chart reviewed. Oncology notes reviewed. Patient is examined at the bedside. Impression: Bilateral lower extremity edema right cough bigger than the left. Patient reports this is worse than his baseline in past several weeks. We'll need to rule out DVT. Reported weight lossno clear evidence of weight loss. Patient's EMR revealed in fact increase weight loss in recordings. Patient also denies any dysphagia or odynophagia. He does report of some loss of appetite and some selective taste with our menu. Can further pursue workup as an outpatient if indicated. mild acute injury today's labs as compared to baseline labs- hydrate orally Schizophrenia- per psychiatry Recent hospitalization for hepatic encephalopathy and rhabdomyolysis- monitoring renal function and LFT htn afib- not on asa due to thrombocytopenia thrombocytopenia- due to meds- hematology following Plan: Ultrasound of bilateral lower extremities to rule out DVT. We'll follow-up results. For now, would continue same management until the DVT studies are out. Patient is instructed to keep his legs up using pillows. At present, would avoid lasix as his renal function is going worse as well today - and pt had recent rhabdo use YADIRA Hose instead DVT prophylaxiswith ambulation. Attending Attestation Patient, his nurse, patient's Carlos Lyons MD February 26, 2017 21:37
--- NOTE | 2017-02-26 21:37 | RADRPT ---
EXAM DATE/TIME: 02/26/2017 21:12 [place] COMPARISON: US LEG BILATERAL VENOUS DOPPLER, November 20, 2014, 18:17. INDICATIONS : Bilateral leg swelling. MEDICAL HISTORY : Hypercholesterolemia. Hypertension. Chronic obstructive pulmonary disease. A-fib. SURGICAL HISTORY : Pacemaker. ENCOUNTER: Initial ACUITY: 2 day PAIN SCORE: 2/10 LOCATION: Bilateral legs. TECHNIQUE: Venous ultrasound of the left and right leg was performed from the inguinal ligament to the proximal calf. Real-time, color Doppler and spectral tracing, compression and augmentation techniques were us ed. FINDINGS: RIGHT LEG: There is normal compressibility of the deep venous system from the inguinal region to the proximal ca lf. No echogenic clot is seen in the lumen of the common femoral, femoral, popliteal, and posterior tibial veins. There is a normal response of the venous system to proximal and distal augmentation an d respiration. LEFT LEG: There is normal compressibility of the deep venous system from the inguinal region to the proximal ca lf. No echogenic clot is seen in the lumen of the common femoral, femoral, popliteal, and posterior tibial veins. There is a normal response of the venous system to proximal and distal augmentation an d respiration. CONCLUSION: 1. No DVT. 2. Subcutaneous edema involving the calves bilaterally. Josué Colon Jr., MD on February 26, 2017 at 21:34 Board Certified Radiologist. This report was verified electronically.
[2017-02-27] MEDS: PROPRANOLOL HCL 10 MG TAB PO SCH ×3 (03:50→20:00)
[2017-02-27 05:12] VITALS: BP 152/88; PULSE 90; RESP 18; TEMP 98.1; O2SAT 98
[2017-02-27] MEDS: REMOVE OLD NICOTINE PATCH T-DERMAL SCH (08:54)
[2017-02-27] MEDS: NICOTINE 21 MG/24 HR PATCH T-DERMAL SCH (08:54)
[2017-02-27] MEDS: clonazePAM 0.5 MG TAB PO SCH ×2 (08:55→20:40)
[2017-02-27] MEDS: ARIPiprazole 30 MG TAB PO SCH (08:55)
[2017-02-27] MEDS: ASPIRIN EC 81 MG TABEC PO SCH (08:55)
[2017-02-27] MEDS: THIAMINE HCL 100 MG TAB PO SCH (08:55)
[2017-02-27] MEDS: BENZTROPINE MESYLATE 1 MG TAB PO SCH ×2 (08:55→20:40)
[2017-02-27] MEDS: METOPROLOL TARTRATE 25 MG TAB PO SCH ×2 (08:55→20:40)
[2017-02-27] MEDS: NIFEdipine 30 MG SUSTAINED RELEASE TAB PO SCH (10:30)
--- NOTE | 2017-02-27 11:03 | HHI.PR ---
Subjective Remarks Patient denies any pain denies fevers/chills vital signs stable case discussed w RN - Patient has BL lower extremity edema stable vital signs noted with good O2 sat. Objective Vitals Vital Signs Date Time Temp Pulse Resp B/P Pulse Ox O2 Delivery O2 Flow Rate FiO2 02/27/17 05:12 98.1 90 18 152/88 98 02/26/17 17:05 97.8 76 18 125/71 98 I/O 02/26/17 02/26/17 02/26/17 02/27/17 02/27/17 02/27/17 07:00 15:00 23:00 07:00 15:00 23:00 Intake Total 480 ml 600 ml 360 ml Balance 480 ml 600 ml 360 ml Intake Oral 480 ml 600 ml 360 ml # Voids 1 3 2 Result Diagram: 02/26/17 0825 02/26/17 0825 Imaging Last Impressions Lower Extremity Ultrasound 02/26/17 0000 Signed Impressions: Service Date/Time: Sunday, February 26, 2017 21:12 - CONCLUSION: 1. No DVT. 2. Subcutaneous edema involving the calves bilaterally. Josué Colon Jr., MD Abdomen Ultrasound 02/20/17 0000 Signed Impressions: Service Date/Time: Monday, February 20, 2017 12:19 - CONCLUSION: Very limited evaluation because of lack of patient cooperation. Justin Guzman MD Chest X-Ray 01/20/17 0000 Signed Impressions: Service Date/Time: Friday, January 20, 2017 21:49 - CONCLUSION: The lungs are clear. Josué Henning MD Objective Remarks GENERAL: Middle aged male, sitting up in alethea in room in [facility]. SKIN: Warm and dry. HEAD: Normocephalic. EYES: No injection or drainage. HEART and Lungs: patient will not allow me to listen to heart and lungs. EXTREMITIES: No cyanosis. bilateral lower extremity edema, YADIRA hose in place. MUSCULOSKELETAL: Adequate muscle tone. NEUROLOGICAL: awake and alert, normal speech. Procedures none Medications and IVs Current Medications Medications (Trade) Dose Ordered Sig/Mesha Route Start Time Stop Time Status Last Admin (Ativan Inj) 1 mg Q6H PRN IM 01/17/17 22:00 02/26/17 12:14 (Habitrol 21 Mg Patch.24 Hr) 1 patch DAILY T-DERMAL 01/18/17 09:00 02/11/17 09:20 Miscellaneous Information 1 HS T-DERMAL 01/18/17 21:00 02/04/17 20:26 (Tylenol) 650 mg Q4H PRN PO 01/18/17 11:15 (Milk Of Magnesia Liq) 30 ml DAILY PRN PO 01/18/17 11:15 (Mag-Al Plus Susp Liq) 30 ml Q6H PRN PO 01/18/17 11:15 (Ecotrin Ec) 81 mg DAILY PO 01/19/17 09:00 02/27/17 08:55 (Lipitor) 20 mg HS PO 01/18/17 21:00 02/26/17 21:00 (Lopressor) 75 mg BID PO 01/18/17 21:00 02/27/17 08:55 (Procardia Xl) 30 mg DAILY PO 01/19/17 09:00 02/27/17 10:30 (Inderal) 10 mg Q8H PO 01/18/17 12:00 02/27/17 12:57 (Desyrel) 100 mg HS PO 01/18/17 21:00 02/26/17 21:00 (Vitamin B1) 100 mg DAILY PO 01/18/17 14:15 02/27/17 08:55 (KlonoPIN) 0.5 mg Q12HR PO 01/30/17 21:00 02/27/17 08:55 (Abilify) 30 mg DAILY PO 02/01/17 09:00 02/27/17 08:55 (Cogentin) 1 mg BID PO 02/01/17 21:00 02/27/17 08:55 (Ativan) 1 mg Q6H PRN PO 02/21/17 22:30 02/26/17 21:24 Urinary Catheter: No Vascular Central Line Catheter: No A/P Problem List: (1) Schizoaffective disorder, bipolar type ICD Code: F25.0 Status: Chronic (2) Tobacco abuse ICD Code: Z72.0 Status: Chronic (3) Transaminitis ICD Code: R74.0 Status: Acute (4) Hypertension ICD Code: I10 Status: Chronic Assessment and Plan 66-year-old male with past medical history of hypertension, atrial fibrillation , depression, schizophrenia, anxiety and HLD who is an inpatient at psychiatric facility and hospitalist services have been consulted for medical management. Schizophrenia - Management per psychiatric team Recent hospitalization for hepatic encephalopathy and rhabdomyolysis - encourage po intake - ammonia level was 24 on 01/16 - last CK 363 (highest was 1420) - monitor LFTs and kidney function Transaminitis - secondary to above - Negative hepatitis panel - resolved. ALT and AST normal. - continue to monitor HTN - Continue with metoprolol 75 mg twice a day - Nifedipine 30 mg daily - Bp stable. A. fib, rate controlled - ASA initially held due to thrombocytopenia. I will resume. - Nifedipine, metoprolol Bilateral lower extremity edema - Gualberto wraps bilaterally - Leg elevation at rest -Will start patient on Lasix. -DVT ruled out with negative doppler us on 02/26. Thrombocytopenia -Platelets on admission on 01/19 145K down to 100 K. -Consulted hematology. Appreciate recommendations. No specific treatment. Most likely drug-induced. -Platelets stable above 100 k. -Rheumatoid factor screen, FRANCHESKA screen, RPR, hepatitis profile, HIV antibody all negative. -Liver ultrasound did not show any liver abnormality and the patient did not allow for a proper exam therefore exam is limited. DEEP -Creatinine on 02/26 was increased at 1.5, repeat BMP shows creatinine of 0.9. DEEP resolved. -Continue to monitor BMP. DVT prophylaxis: Patient ambulatory Julián Lucas MD February 27, 2017 11:03
[2017-02-27 11:11] LABS: HEMATOCRIT 37.4 % (39.0-51.0); MEAN CELL VOLUME 89.3 FL (80.0-100.0); MEAN CORPUSCULAR HEMOGLOBIN 29.4 PG (27.0-34.0); MEAN CORPUSCULAR HGB CONC 32.9 % (32.0-36.0); PLATELET COUNT 116 TH/MM3 (150-450); RED BLOOD COUNT 4.19 MIL/MM3 (4.50-5.90); RED CELL DISTRIBUTION WIDTH 14.6 % (11.6-17.2); REVIEW FLAG FINAL; WHITE BLOOD COUNT 8.4 TH/MM3 (4.0-11.0)
--- NOTE | 2017-02-27 11:40 | PD.TTN ---
Present for Treatment Team Treatment Team Staff: Provider, Nurse, Psych Therapist, Occupational Therapist Patient Problems 1. Discharge planning 2. Medication compliance 3. Knowledge deficit 4. Lack of coping skills 5. appropriate placement needs Progress Toward Goals Provider Input: Patient's medication continues to be the same no adjustment at this time; however medical is consult for medical issues/concerns/ Nurse Input: Per nurse patient is taking his medication, and eating meals, moments of confusion and disorganized thoughts. Patient continues to be encouraged to use his walker. Psych Therapist Input: Patient continues to refuse placement, believe that he is able to maintain with the help of a friend. Patient's speech is slurred, and difficult to understand at times, he has to be directed to repeat his thoughts for clarity. Patient is encouraged by staff to walk on with the assistance of his walker, and to participate with groups. Occupational Therapist Input: Per OT, patient refuses all groups; however he states patient presents with a brighter mood, and less angry and aggressive and thoughts. Documentation Scribe: BERT Bond Teaching Recipient: Patient Issac,Mónica NOEL February 27, 2017 11:40
--- NOTE | 2017-02-27 12:26 | PD.ONC.PN ---
Subjective Subjective Remarks Afebrile overnight. "Can I leave today?" Denies bleeding. Denies pain. "I'm fine, I just want to leave." Objective Data Date Time Temp Pulse Resp B/P Pulse Ox O2 Delivery O2 Flow Rate FiO2 02/27/17 05:12 98.1 90 18 152/88 98 02/26/17 17:05 97.8 76 18 125/71 98 Result Diagram: 02/27/17 1100 02/26/17 0825 Laboratory Results Laboratory Tests Test 02/27/17 11:00 White Blood Count 8.4 TH/MM3 Red Blood Count 4.19 MIL/MM3 Hemoglobin 12.3 GM/DL Hematocrit 37.4 % Mean Corpuscular Volume 89.3 FL Mean Corpuscular Hemoglobin 29.4 PG Mean Corpuscular Hemoglobin 32.9 % Concent Red Cell Distribution Width 14.6 % Platelet Count 116 TH/MM3 Mean Platelet Volume 10.7 FL Administered Medications Medications (Trade) Dose Ordered Sig/Mesha Route PRN Reason Start Time Stop Time Status Last Admin Dose Admin Lorazepam (Ativan Inj) 1 mg Q6H PRN IM ANXIETY, unable to take PO 01/17/17 22:00 02/26/17 12:14 Nicotine (Habitrol 21 Mg Patch.24 Hr) 1 patch DAILY T-DERMAL 01/18/17 09:00 02/11/17 09:20 Miscellaneous Information 1 HS T-DERMAL 01/18/17 21:00 02/04/17 20:26 Aspirin (Ecotrin Ec) 81 mg DAILY PO 01/19/17 09:00 02/27/17 08:55 Atorvastatin Calcium (Lipitor) 20 mg HS PO 01/18/17 21:00 02/26/17 21:00 Metoprolol Tartrate (Lopressor) 75 mg BID PO 01/18/17 21:00 02/27/17 08:55 Nifedipine (Procardia Xl) 30 mg DAILY PO 01/19/17 09:00 02/27/17 10:30 Propranolol HCl (Inderal) 10 mg Q8H PO 01/18/17 12:00 02/26/17 05:44 Trazodone HCl (Desyrel) 100 mg HS PO 01/18/17 21:00 02/26/17 21:00 Thiamine HCl (Vitamin B1) 100 mg DAILY PO 01/18/17 14:15 02/27/17 08:55 Clonazepam (KlonoPIN) 0.5 mg Q12HR PO 01/30/17 21:00 02/27/17 08:55 Aripiprazole (Abilify) 30 mg DAILY PO 02/01/17 09:00 02/27/17 08:55 Benztropine Mesylate (Cogentin) 1 mg BID PO 02/01/17 21:00 02/27/17 08:55 Lorazepam (Ativan) 1 mg Q6H PRN PO ANXIETY 02/21/17 22:30 02/26/17 21:24 Objective Remarks GENERAL: Middle aged male, sitting up in alethea in room in [facility]. SKIN: Warm and dry. HEAD: Normocephalic. EYES: No injection or drainage. HEART and Lungs: patient will not allow me to listen to heart and lungs. EXTREMITIES: No cyanosis. bilateral lower extremity edema, YADIRA hose in place. MUSCULOSKELETAL: Adequate muscle tone. NEUROLOGICAL: awake and alert, normal speech. Assessment/Plan Problem List: (1) Thrombocytopenia Status: Acute Plan: 02/27: platelets with slight dip but remain above 100K. d/t drug effect. --most likely due to psychotic medications. --U/S abdomen: lack of patient cooperation limited examination. --RF, FRANCHESKA , hep panel, HIV all are negative. Attending Statement no bleeding remains pschycotic plat are >100k will follow. [place] Jovel February 27, 2017 12:26 Jam Alexander MD Feb 28, 2017 06:00
[2017-02-27 12:35] LABS: BICARBONATE 26.8 MEQ/L (21.0-32.0); POTASSIUM 3.9 MEQ/L (3.5-5.1)
--- NOTE | 2017-02-27 13:08 | HHI.PYPN ---
Subjective Remarks Patient seen today for psychiatric evaluation along with nurse in charge Tamy, patient refused to take his medication this morning, but he was redirected and encourage to be compliant and he agreed to take it. Patient says that he wants to live the hospital and be discharged. He is irritable, seems to be paranoid against the staff, disorganized, but easily redirectable. He is oriented 3, he has been compliant with medications so far, no significant side effects reported. Review of Systems Other Somatic complaint Objective Alert: Yes [place]: Person, Place Mood: Calm Affect: Restricted Memory Intact: Comment (fair) Hallucinations: Other (remains internally preoccupied) Delusions: Yes Delusion Type: Paranoid Suicidal: Ideation (no SI) Homicidal: Ideation (no HI) Insight/Judgment Poor Labs Test 02/27/17 11:00 White Blood Count 8.4 TH/MM3 Red Blood Count 4.19 MIL/MM3 Hemoglobin 12.3 GM/DL Hematocrit 37.4 % Mean Corpuscular Volume 89.3 FL Mean Corpuscular Hemoglobin 29.4 PG Mean Corpuscular Hemoglobin 32.9 % Concent Red Cell Distribution Width 14.6 % Platelet Count 116 TH/MM3 Mean Platelet Volume 10.7 FL Sodium Level 143 MEQ/L Potassium Level 3.9 MEQ/L Chloride Level 111 MEQ/L Carbon Dioxide Level 26.8 MEQ/L Anion Gap 5 MEQ/L Blood Urea Nitrogen 25 MG/DL Creatinine 0.99 MG/DL Estimat Glomerular Filtration 76 ML/MIN Rate Random Glucose 107 MG/DL Calcium Level 8.8 MG/DL Vitals/IOs Vital Signs Date Time Temp Pulse Resp B/P Pulse Ox O2 Delivery O2 Flow Rate FiO2 02/27/17 05:12 98.1 90 18 152/88 98 Intake and Output 02/26/17 02/26/17 02/27/17 08:00 16:00 00:00 Intake Total 480 ml 600 ml Balance 480 ml 600 ml Assessment & Plan Problem List: (1) Schizoaffective disorder, bipolar type Assessment & Plan: Continue current psychotropic regimen. Medical recommendations appreciated. ICD Code: F25.0 (2) Acute medication-induced akathisia ICD Code: G25.89 Assessment & Plan Estimated LOS: days Justification for Cont. Inpt. Patient has a high risk to decompensate at the lower level of care. Request HC Surrog/Guard Advoc?: No Wilver Valdivia MD February 27, 2017 13:08
[2017-02-27] MEDS: LORazepam 1 MG TAB PO PRN ×2 (14:23→20:40)
[2017-02-27] MEDS: FUROSEMIDE 40 MG TAB PO SCH (16:22)
[2017-02-27 19:23] VITALS: BP 132/79; PULSE 77; RESP 18; TEMP 97.1; O2SAT 100
[2017-02-27] MEDS: ATORVASTATIN 20 MG TAB PO SCH (20:40)
[2017-02-27] MEDS: traZODone HCL 50 MG TAB PO SCH (20:40)
[2017-02-28 04:00] VITALS: BP 123/70; PULSE 82; RESP 20; TEMP 97.3; O2SAT 94
[2017-02-28] MEDS: PROPRANOLOL HCL 10 MG TAB PO SCH ×3 (04:00→20:00)
[2017-02-28 05:16] VITALS: BP 123/70; PULSE 82; RESP 20; TEMP 97.3; O2SAT 94
[2017-02-28] MEDS: NIFEdipine 30 MG SUSTAINED RELEASE TAB PO SCH (08:20)
[2017-02-28] MEDS: LORazepam 1 MG TAB PO PRN ×2 (08:20→21:20)
[2017-02-28] MEDS: ASPIRIN EC 81 MG TABEC PO SCH (08:20)
[2017-02-28] MEDS: BENZTROPINE MESYLATE 1 MG TAB PO SCH ×2 (08:20→21:00)
[2017-02-28] MEDS: METOPROLOL TARTRATE 25 MG TAB PO SCH ×2 (08:20→21:00)
[2017-02-28] MEDS: THIAMINE HCL 100 MG TAB PO SCH (08:20)
[2017-02-28] MEDS: FUROSEMIDE 40 MG TAB PO SCH (08:20)
[2017-02-28] MEDS: clonazePAM 0.5 MG TAB PO SCH ×2 (08:20→21:00)
[2017-02-28] MEDS: ARIPiprazole 30 MG TAB PO SCH (08:20)
[2017-02-28] MEDS: NICOTINE 21 MG/24 HR PATCH T-DERMAL SCH (08:21)
[2017-02-28] MEDS: REMOVE OLD NICOTINE PATCH T-DERMAL SCH (08:21)
[2017-02-28] MEDS: LORazepam 2 MG/ML VIAL IM PRN (09:19)
--- NOTE | 2017-02-28 11:10 | PD.ONC.PN ---
Subjective Subjective Remarks Afebrile overnight. Patient resting in room. Per nursing staff he was agitated this morning and had to be given ativan. Objective Data Date Time Temp Pulse Resp B/P Pulse Ox O2 Delivery O2 Flow Rate FiO2 02/28/17 05:16 97.3 82 20 123/70 94 02/27/17 19:23 97.1 77 18 132/79 100 02/28/17 02/28/17 02/28/17 07:00 15:00 23:00 Intake Total 720 ml 240 ml Balance 720 ml 240 ml Result Diagram: 02/27/17 1100 02/27/17 1100 Administered Medications Medications (Trade) Dose Ordered Sig/Mesha Route PRN Reason Start Time Stop Time Status Last Admin Dose Admin Lorazepam (Ativan Inj) 1 mg Q6H PRN IM ANXIETY, unable to take PO 01/17/17 22:00 02/28/17 09:19 Nicotine (Habitrol 21 Mg Patch.24 Hr) 1 patch DAILY T-DERMAL 01/18/17 09:00 02/11/17 09:20 Miscellaneous Information 1 HS T-DERMAL 01/18/17 21:00 02/04/17 20:26 Aspirin (Ecotrin Ec) 81 mg DAILY PO 01/19/17 09:00 02/28/17 08:20 Atorvastatin Calcium (Lipitor) 20 mg HS PO 01/18/17 21:00 02/27/17 20:40 Metoprolol Tartrate (Lopressor) 75 mg BID PO 01/18/17 21:00 02/28/17 08:20 Nifedipine (Procardia Xl) 30 mg DAILY PO 01/19/17 09:00 02/28/17 08:20 Propranolol HCl (Inderal) 10 mg Q8H PO 01/18/17 12:00 02/27/17 20:00 Trazodone HCl (Desyrel) 100 mg HS PO 01/18/17 21:00 02/27/17 20:40 Thiamine HCl (Vitamin B1) 100 mg DAILY PO 01/18/17 14:15 02/28/17 08:20 Clonazepam (KlonoPIN) 0.5 mg Q12HR PO 01/30/17 21:00 02/28/17 08:20 Aripiprazole (Abilify) 30 mg DAILY PO 02/01/17 09:00 02/28/17 08:20 Benztropine Mesylate (Cogentin) 1 mg BID PO 02/01/17 21:00 02/28/17 08:20 Lorazepam (Ativan) 1 mg Q6H PRN PO ANXIETY 02/21/17 22:30 02/28/17 08:20 Furosemide (Lasix) 40 mg DAILY PO 02/27/17 15:00 02/28/17 08:20 Objective Remarks GENERAL: Middle aged male, sitting up in chair in nad. exam limited by lack of patient cooperation. SKIN: Warm and dry. HEAD: Normocephalic. EYES: No injection or drainage. HEART and Lungs: patient will not allow me to listen to heart and lungs. NEUROLOGICAL: awake and alert, normal speech. moving all extremities. Assessment/Plan Problem List: (1) Thrombocytopenia Status: Acute Plan: 02/28: no bleeding. platelet count pending --d/t drug effect. --most likely due to psychotic medications. --U/S abdomen: lack of patient cooperation limited examination. --RF, FRANCHESKA , hep panel, HIV all are negative. Attending Statement no new c/o no bleeding plat are >100K drug induce thrombocytopenia. monitor cbc will follow. [place] Jovel Feb 28, 2017 11:10 Jam Alexander MD Mar 01, 2017 05:32
--- NOTE | 2017-02-28 12:41 | HHI.PYPN ---
Subjective Remarks Patient was seen today for psychiatric evaluation, patient continues to be very paranoid towards staff, disorganized, intrusive in the unit. Patient needed to be medicated with Ativan 2 mg IM this morning to calm him down. He has been accusing nurses of stealing to him and having cameras observing him. He is oriented 3, compliant with medications. Review of Systems Other Patient has bilateral lower lower extremities edema Objective Alert: Yes [place]: Person, Place Mood: Angry Affect: Restricted Memory Intact: Comment (fair) Hallucinations: Other (remains internally preoccupied) Delusions: Yes Delusion Type: Paranoid Suicidal: Ideation (no SI) Homicidal: Ideation (no HI) Insight/Judgment Poor Labs Test 02/28/17 11:11 Platelet Count 123 TH/MM3 Vitals/IOs Vital Signs Date Time Temp Pulse Resp B/P Pulse Ox O2 Delivery O2 Flow Rate FiO2 02/28/17 05:16 97.3 82 20 123/70 94 Intake and Output 02/27/17 02/27/17 02/28/17 08:00 16:00 00:00 Intake Total 360 ml 1970 ml 600 ml Balance 360 ml 1970 ml 600 ml Assessment & Plan Problem List: (1) Schizoaffective disorder, bipolar type Assessment & Plan: Patient continues to be paranoid, disorganized intrusive in the unit. Will add Seroquel 100 mg at bedtime for psychosis and behavioral dysregulation.. ICD Code: F25.0 (2) Acute medication-induced akathisia ICD Code: G25.89 Assessment & Plan Estimated LOS: days Justification for Cont. Inpt. Patient continues to be acutely paranoid, very disorganized, needs to continue psychiatric hospitalization for stabilization. Request HC Surrog/Guard Advoc?: Wilver Wright MD Feb 28, 2017 12:41
--- NOTE | 2017-02-28 13:35 | HHI.PR ---
Subjective Remarks Follow-up on patient with schizophrenia, recent hospitalization for hepatic encephalopathy and rhabdomyolysis, hypertension, atrial fibrillation, thrombocytopenia and bilateral lower extremity edema. Patient seen today. Patient refuses examination tells me to "go away". Patient reports that everything is fine. When asked if he has any acute medical complaints, patient reiterates for me to go away. Objective Vitals Vital Signs Date Time Temp Pulse Resp B/P Pulse Ox O2 Delivery O2 Flow Rate FiO2 02/28/17 05:16 97.3 82 20 123/70 94 02/28/17 04:00 97.3 82 20 123/70 94 02/27/17 19:23 97.1 77 18 132/79 100 I/O 02/27/17 02/27/17 02/27/17 02/28/17 02/28/17 02/28/17 07:00 15:00 23:00 07:00 15:00 23:00 Intake Total 360 ml 1970 ml 600 ml 720 ml 240 ml Balance 360 ml 1970 ml 600 ml 720 ml 240 ml Intake Oral 360 ml 1970 ml 600 ml 720 ml 240 ml # Voids 2 2 Result Diagram: 02/28/17 1111 02/27/17 1100 Imaging Last Impressions Lower Extremity Ultrasound 02/26/17 0000 Signed Impressions: Service Date/Time: Sunday, February 26, 2017 21:12 - CONCLUSION: 1. No DVT. 2. Subcutaneous edema involving the calves bilaterally. Josué Colon Jr., MD Abdomen Ultrasound 02/20/17 0000 Signed Impressions: Service Date/Time: Monday, February 20, 2017 12:19 - CONCLUSION: Very limited evaluation because of lack of patient cooperation. Justin Guzman MD Chest X-Ray 01/20/17 0000 Signed Impressions: Service Date/Time: Friday, January 20, 2017 21:49 - CONCLUSION: The lungs are clear. Josué Henning MD Objective Remarks GENERAL: This is a well-nourished, well-developed patient, in no apparent distress. Awake and alert. Seated in his hospital room. Patient refuses examination. Procedures none Medications and IVs Current Medications Medications (Trade) Dose Ordered Sig/Mesha Route Start Time Stop Time Status Last Admin (Ativan Inj) 1 mg Q6H PRN IM 01/17/17 22:00 02/28/17 09:19 (Habitrol 21 Mg Patch.24 Hr) 1 patch DAILY T-DERMAL 01/18/17 09:00 02/11/17 09:20 Miscellaneous Information 1 HS T-DERMAL 01/18/17 21:00 02/04/17 20:26 (Tylenol) 650 mg Q4H PRN PO 01/18/17 11:15 (Milk Of Magnesia Liq) 30 ml DAILY PRN PO 01/18/17 11:15 (Mag-Al Plus Susp Liq) 30 ml Q6H PRN PO 01/18/17 11:15 (Ecotrin Ec) 81 mg DAILY PO 01/19/17 09:00 02/28/17 08:20 (Lipitor) 20 mg HS PO 01/18/17 21:00 02/27/17 20:40 (Lopressor) 75 mg BID PO 01/18/17 21:00 02/28/17 08:20 (Procardia Xl) 30 mg DAILY PO 01/19/17 09:00 02/28/17 08:20 (Inderal) 10 mg Q8H PO 01/18/17 12:00 02/28/17 12:32 (Desyrel) 100 mg HS PO 01/18/17 21:00 02/27/17 20:40 (Vitamin B1) 100 mg DAILY PO 01/18/17 14:15 02/28/17 08:20 (KlonoPIN) 0.5 mg Q12HR PO 01/30/17 21:00 02/28/17 08:20 (Abilify) 30 mg DAILY PO 02/01/17 09:00 02/28/17 08:20 (Cogentin) 1 mg BID PO 02/01/17 21:00 02/28/17 08:20 (Ativan) 1 mg Q6H PRN PO 02/21/17 22:30 02/28/17 08:20 (Lasix) 40 mg DAILY PO 02/27/17 15:00 02/28/17 08:20 (SEROquel) 100 mg HS PO 02/28/17 21:00 A/P Problem List: (1) Schizoaffective disorder, bipolar type ICD Code: F25.0 Status: Chronic (2) Tobacco abuse ICD Code: Z72.0 Status: Chronic (3) Transaminitis ICD Code: R74.0 Status: Acute (4) Hypertension ICD Code: I10 Status: Chronic Assessment and Plan 66-year-old male with past medical history of hypertension, atrial fibrillation , depression, schizophrenia, anxiety and HLD who is an inpatient at psychiatric facility and hospitalist services have been consulted for medical management. Schizophrenia - Management per psychiatric team Recent hospitalization for hepatic encephalopathy and rhabdomyolysis - encourage po intake - ammonia level was 24 on 01/16 - last CK 363 (highest was 1420) - AST 20, ALT 22 Transaminitis - secondary to above - Negative hepatitis panel - resolved. ALT and AST normal. - continue to monitor HTN - Continue with metoprolol 75 mg twice a day - Nifedipine 30 mg daily - Bp stable. A. fib, rate controlled - ASA initially held due to thrombocytopenia. - ASA resumed - Nifedipine, metoprolol Bilateral lower extremity edema - Gualberto wraps bilaterally - Leg elevation at rest - Will start patient on Lasix. - DVT ruled out with negative doppler us on 02/26. Thrombocytopenia -Platelets on admission on 01/19 145K down to 100 K. -Consulted hematology. Appreciate recommendations. No specific treatment. Most likely drug-induced. -Platelets stable above 100 k. -Rheumatoid factor screen, FRANCHESKA screen, RPR, hepatitis profile, HIV antibody all negative. -Liver ultrasound did not show any liver abnormality and the patient did not allow for a proper exam therefore exam is limited. DEEP -Creatinine on 02/26 was increased at 1.5, repeat BMP shows creatinine of 0.9. DEEP resolved. -Continue to monitor BMP. DVT prophylaxis: Patient ambulatory Hyacinth Esteban Feb 28, 2017 13:35
[2017-02-28] MEDS ORDERED: OLANZapine IM 10 MG VIAL IM ONE (14:00)
[2017-02-28 17:06] VITALS: BP 144/92; PULSE 85; RESP 18; TEMP 98.1; O2SAT 99
[2017-02-28] MEDS: ATORVASTATIN 20 MG TAB PO SCH (21:00)
[2017-02-28] MEDS: QUEtiapine FUMARATE 100 MG TAB PO SCH (21:00)
[2017-02-28] MEDS: traZODone HCL 50 MG TAB PO SCH (21:00)
[2017-03-01] MEDS: PROPRANOLOL HCL 10 MG TAB PO SCH ×3 (04:00→20:00)
[2017-03-01 05:33] VITALS: BP 144/68; PULSE 77; RESP 16; TEMP 97.3; O2SAT 93
[2017-03-01] MEDS: LORazepam 2 MG/ML VIAL IM PRN ×2 (07:16→17:00)
[2017-03-01] MEDS ORDERED: OLANZapine IM 10 MG VIAL IM ONE (07:30)
--- NOTE | 2017-03-01 07:46 | HHI.PYPN ---
Subjective Remarks Patient is seen today for reevaluation, he continues to be very paranoid, disorganized, verbally hostile with nurses and staff. He says he does not trust me and he does not want to see me anymore "because you are not Yazidi like me", he called nurse in charge "get out of here fucking bitch". He became agitated during interviewed and had to be medicated with IM olanzapine 10 im to calm him down. Review of Systems Other No somatic complain Objective Alert: Yes [place]: Person, Place Mood: Angry Affect: Restricted Memory Intact: Comment (fair) Hallucinations: Other (remains internally preoccupied) Delusions: Yes Delusion Type: Paranoid Suicidal: Ideation (no SI) Homicidal: Ideation (no HI) Insight/Judgment poor Labs Test 02/28/17 03/01/17 11:11 04:43 Platelet Count 123 TH/MM3 109 TH/MM3 Vitals/IOs Vital Signs Date Time Temp Pulse Resp B/P Pulse Ox O2 Delivery O2 Flow Rate FiO2 03/01/17 05:33 97.3 77 16 144/68 93 Intake and Output 02/28/17 02/28/17 03/01/17 08:00 16:00 00:00 Intake Total 720 ml 720 ml 2040 ml Balance 720 ml 720 ml 2040 ml Assessment & Plan Problem List: (1) Schizoaffective disorder, bipolar type Assessment & Plan: patient continues to be presenting episodic agitation and hostility, still paranoid against nurses and staff. Will medicate with olanzapine 10 mg im to help him to calm down. ICD Code: F25.0 (2) Acute medication-induced akathisia ICD Code: G25.89 Assessment & Plan Estimated LOS: days Justification for Cont. Inpt. Patient is acutely psychotic and needs to continue hospitalization for stabilization Request HC Surrog/Guard Advoc?: No Wilver Valdivia MD Mar 01, 2017 07:46
[2017-03-01] MEDS: ASPIRIN EC 81 MG TABEC PO SCH (08:35)
[2017-03-01] MEDS: THIAMINE HCL 100 MG TAB PO SCH (08:35)
[2017-03-01] MEDS: ARIPiprazole 30 MG TAB PO SCH (08:36)
[2017-03-01] MEDS: NICOTINE 21 MG/24 HR PATCH T-DERMAL SCH (08:36)
[2017-03-01] MEDS: FUROSEMIDE 40 MG TAB PO SCH (08:36)
[2017-03-01] MEDS: clonazePAM 0.5 MG TAB PO SCH ×2 (08:36→21:00)
[2017-03-01] MEDS: METOPROLOL TARTRATE 25 MG TAB PO SCH ×2 (08:36→21:00)
[2017-03-01] MEDS: BENZTROPINE MESYLATE 1 MG TAB PO SCH ×2 (08:36→21:00)
[2017-03-01] MEDS: NIFEdipine 30 MG SUSTAINED RELEASE TAB PO SCH (08:36)
--- NOTE | 2017-03-01 11:14 | HHI.PR ---
Subjective Remarks Follow-up on patient with schizophrenia, recent hospitalization for hepatic encephalopathy and rhabdomyolysis, hypertension, atrial fibrillation, thrombocytopenia and bilateral lower extremity edema. Patient seen and examined today. Patient very lethargic after receiving Olanzapine earlier today due to increased agitation. Objective Vitals Vital Signs Date Time Temp Pulse Resp B/P Pulse Ox O2 Delivery O2 Flow Rate FiO2 03/01/17 05:33 97.3 77 16 144/68 93 02/28/17 17:06 98.1 85 18 144/92 99 I/O 02/28/17 02/28/17 02/28/17 03/01/17 03/01/17 03/01/17 07:00 15:00 23:00 07:00 15:00 23:00 Intake Total 720 ml 720 ml 2040 ml 480 ml Balance 720 ml 720 ml 2040 ml 480 ml Intake Oral 720 ml 720 ml 2040 ml 480 ml # Voids 2 2 Result Diagram: 03/01/17 0443 02/27/17 1100 Imaging Last Impressions Lower Extremity Ultrasound 02/26/17 0000 Signed Impressions: Service Date/Time: Sunday, February 26, 2017 21:12 - CONCLUSION: 1. No DVT. 2. Subcutaneous edema involving the calves bilaterally. Josué Colon Jr., MD Abdomen Ultrasound 02/20/17 0000 Signed Impressions: Service Date/Time: Monday, February 20, 2017 12:19 - CONCLUSION: Very limited evaluation because of lack of patient cooperation. Justin Guzman MD Chest X-Ray 01/20/17 0000 Signed Impressions: Service Date/Time: Friday, January 20, 2017 21:49 - CONCLUSION: The lungs are clear. Josué Henning MD Objective Remarks GENERAL: This is a well-nourished, well-developed patient, in no apparent distress. Lying in hospital bed. Lethargic. SKIN: Warm and dry. No rash. HEAD: Normocephalic. Atraumatic. EYES: Pupils equal and round. No scleral icterus. No injection or drainage. CARDIOVASCULAR: Regular rate and rhythm. S1, S2 noted. No murmur appreciated. RESPIRATORY: Poor effort. No accessory muscle use. Clear to auscultation. Breath sounds equal bilaterally. GASTROINTESTINAL: Abdomen soft, non-tender, nondistended. Normoactive bowel sounds x4. MUSCULOSKELETAL: No obvious deformities. Extremities without clubbing or cyanosis. (+) Trace bilateral lower extremity edema noted. NEUROLOGICAL: Lethargic. Procedures none Medications and IVs Current Medications Medications (Trade) Dose Ordered Sig/Mesha Route Start Time Stop Time Status Last Admin (Ativan Inj) 1 mg Q6H PRN IM 01/17/17 22:00 03/01/17 07:16 (Habitrol 21 Mg Patch.24 Hr) 1 patch DAILY T-DERMAL 01/18/17 09:00 02/11/17 09:20 Miscellaneous Information 1 HS T-DERMAL 01/18/17 21:00 02/04/17 20:26 (Tylenol) 650 mg Q4H PRN PO 01/18/17 11:15 (Milk Of Magnesia Liq) 30 ml DAILY PRN PO 01/18/17 11:15 (Mag-Al Plus Susp Liq) 30 ml Q6H PRN PO 01/18/17 11:15 (Ecotrin Ec) 81 mg DAILY PO 01/19/17 09:00 03/01/17 08:35 (Lipitor) 20 mg HS PO 01/18/17 21:00 02/28/17 21:00 (Lopressor) 75 mg BID PO 01/18/17 21:00 03/01/17 08:36 (Procardia Xl) 30 mg DAILY PO 01/19/17 09:00 03/01/17 08:36 (Inderal) 10 mg Q8H PO 01/18/17 12:00 02/28/17 20:00 (Desyrel) 100 mg HS PO 01/18/17 21:00 02/28/17 21:00 (Vitamin B1) 100 mg DAILY PO 01/18/17 14:15 03/01/17 08:35 (KlonoPIN) 0.5 mg Q12HR PO 01/30/17 21:00 03/01/17 08:36 (Abilify) 30 mg DAILY PO 02/01/17 09:00 03/01/17 08:36 (Cogentin) 1 mg BID PO 02/01/17 21:00 03/01/17 08:36 (Ativan) 1 mg Q6H PRN PO 02/21/17 22:30 02/28/17 21:20 (Lasix) 40 mg DAILY PO 02/27/17 15:00 03/01/17 08:36 (SEROquel) 100 mg HS PO 02/28/17 21:00 02/28/17 21:00 A/P Problem List: (1) Schizoaffective disorder, bipolar type ICD Code: F25.0 Status: Chronic (2) Tobacco abuse ICD Code: Z72.0 Status: Chronic (3) Transaminitis ICD Code: R74.0 Status: Acute (4) Hypertension ICD Code: I10 Status: Chronic Assessment and Plan 66-year-old male with past medical history of hypertension, atrial fibrillation , depression, schizophrenia, anxiety and HLD who is an inpatient at psychiatric facility and hospitalist services have been consulted for medical management. Schizophrenia - Management per psychiatric team Recent hospitalization for hepatic encephalopathy and rhabdomyolysis - encourage po intake - ammonia level was 24 on 01/16 - last CK 363 (highest was 1420) - AST 20, ALT 22 Transaminitis - secondary to above - Negative hepatitis panel - resolved. ALT and AST normal. - continue to monitor HTN - Continue with metoprolol 75 mg twice a day - Nifedipine 30 mg daily - Bp stable. A. fib, rate controlled - ASA initially held due to thrombocytopenia. - ASA resumed - Nifedipine, metoprolol - [id number] score 3, patient will need to discuss post hospitalization regarding anti-coagulation with Warfarin or NOACs such as Apixaban. Bilateral lower extremity edema - Continue with minh wraps bilaterally - Continue with leg elevation at rest - Continue Lasix. Monitor BMP. - DVT ruled out with negative doppler us on 02/26. Thrombocytopenia - Platelets on admission on 01/19 145K down to 100 K. - Consulted hematology. Appreciate recommendations. No specific treatment. Most likely drug-induced. - Platelets stable above 100 k but trending down 123 --> 109. Repeat in a.m. - Rheumatoid factor screen, FRANCHESKA screen, RPR, hepatitis profile, HIV antibody all negative. - Liver ultrasound did not show any liver abnormality and the patient did not allow for a proper exam therefore exam is limited. DEEP - Creatinine on 02/26 was increased at 1.5, repeat BMP shows creatinine of 0.9. - DEEP resolved. - Continue to monitor BMP, especially while on Lasix. DVT prophylaxis: Patient ambulatory Discussed with Dr. Zuniga, patient and nursing staff Hyacinth Esteban Mar 01, 2017 11:14
[2017-03-01] MEDS: ATORVASTATIN 20 MG TAB PO SCH (21:00)
[2017-03-01] MEDS: QUEtiapine FUMARATE 100 MG TAB PO SCH (21:00)
[2017-03-01] MEDS: traZODone HCL 50 MG TAB PO SCH (21:00)
[2017-03-01] MEDS: REMOVE OLD NICOTINE PATCH T-DERMAL SCH (21:00)
[2017-03-02] MEDS: PROPRANOLOL HCL 10 MG TAB PO SCH ×3 (04:00→21:24)
[2017-03-02 05:56] VITALS: BP 164/109; PULSE 101; RESP 17; O2SAT 99
[2017-03-02] MEDS: LORazepam 2 MG/ML VIAL IM PRN (07:49)
[2017-03-02 07:57] LABS: POTASSIUM 3.5 MEQ/L (3.5-5.1)
[2017-03-02] MEDS: FUROSEMIDE 40 MG TAB PO SCH (09:00)
[2017-03-02] MEDS: ARIPiprazole 30 MG TAB PO SCH (09:00)
[2017-03-02] MEDS: THIAMINE HCL 100 MG TAB PO SCH (09:00)
[2017-03-02] MEDS: clonazePAM 0.5 MG TAB PO SCH ×2 (09:00→21:23)
[2017-03-02] MEDS: NIFEdipine 30 MG SUSTAINED RELEASE TAB PO SCH (09:00)
[2017-03-02] MEDS: NICOTINE 21 MG/24 HR PATCH T-DERMAL SCH (09:00)
[2017-03-02] MEDS: ASPIRIN EC 81 MG TABEC PO SCH (09:00)
[2017-03-02] MEDS: BENZTROPINE MESYLATE 1 MG TAB PO SCH ×2 (09:00→21:00)
[2017-03-02] MEDS: METOPROLOL TARTRATE 25 MG TAB PO SCH ×2 (09:00→21:18)
--- NOTE | 2017-03-02 14:57 | HHI.PYPN ---
Subjective Remarks Patient seen and examined. Chart reviewed. I note that the patient is managed chiefly with Abilify and Klonopin although typing was recently added, but the patient did refuse his dose last night. Case discussed with nursing staff. Patient was apparently fairly agitated yesterday when Dr. Valdivia saw him but has been calmer since coming down to the 2700 unit per nursing staff. On my evaluation today, the patient is sitting in the day area. He appears internally preoccupied. Thought process somewhat disorganized. No evident side effect from medications. No physical complaints. Review of Systems ROS Limitations: Psychotic, Poor Historian Except as stated in HPI: all other systems reviewed are Neg Objective Alert: Yes [place]: Person, Place Mood: Calm Affect: Flat Memory Intact: Comment (fair) Hallucinations: Other (Int stim) Delusions: Yes Delusion Type: Paranoid Suicidal: Ideation (No suicidal ideation.) Homicidal: Ideation (No HI.) Insight/Judgment Poor Remarks No motor abnormalities noted. Thought process somewhat disorganized. Speech rambling. Grooming and hygiene poor. Labs Test 03/02/17 05:50 Platelet Count 125 TH/MM3 Sodium Level 147 MEQ/L Potassium Level 3.5 MEQ/L Chloride Level 109 MEQ/L Carbon Dioxide Level 32.0 MEQ/L Anion Gap 6 MEQ/L Blood Urea Nitrogen 18 MG/DL Creatinine 0.91 MG/DL Estimat Glomerular Filtration 83 ML/MIN Rate Random Glucose 76 MG/DL Calcium Level 8.6 MG/DL Labs reviewed. Thrombocytopenia stable. Mild hypernatremia noted. Vitals/IOs Vital Signs Date Time Temp Pulse Resp B/P Pulse Ox O2 Delivery O2 Flow Rate FiO2 03/02/17 05:56 101 17 164/109 99 03/01/17 05:33 97.3 Intake and Output 03/01/17 03/01/17 03/02/17 08:00 16:00 00:00 Intake Total 1440 ml 480 ml Balance 1440 ml 480 ml Assessment & Plan Problem List: (1) Schizoaffective disorder, bipolar type ICD Code: F25.0 (2) Acute medication-induced akathisia ICD Code: G25.89 Assessment & Plan Continue Abilify and Klonopin as ordered. Continue Seroquel as ordered and encourage adherence with psychotropic medications. Continue to monitor on the high acuity unit. Continue other medications and care as ordered. Justification for Cont. Inpt. High risk for decompensation in a less restrictive environment Discharge Planning Per Dr. Valdivia Request HC Surrog/Guard Advoc?: No Lee Stanley MD Mar 02, 2017 14:57
[2017-03-02 15:20] VITALS: BP 114/64; PULSE 91; RESP 18; O2SAT 98
[2017-03-02] MEDS: LORazepam 1 MG TAB PO PRN (18:04)
[2017-03-02] MEDS: ATORVASTATIN 20 MG TAB PO SCH (21:00)
[2017-03-02] MEDS: REMOVE OLD NICOTINE PATCH T-DERMAL SCH (21:00)
[2017-03-02] MEDS: QUEtiapine FUMARATE 100 MG TAB PO SCH (21:19)
[2017-03-02] MEDS: traZODone HCL 50 MG TAB PO SCH (21:22)
[2017-03-03] MEDS: PROPRANOLOL HCL 10 MG TAB PO SCH ×3 (04:55→20:02)
[2017-03-03 05:58] VITALS: BP 166/91; PULSE 97; RESP 18; TEMP 97.5; O2SAT 96
[2017-03-03] MEDS: NICOTINE 21 MG/24 HR PATCH T-DERMAL SCH (09:00)
[2017-03-03] MEDS: METOPROLOL TARTRATE 25 MG TAB PO SCH ×2 (09:16→20:02)
[2017-03-03] MEDS: ARIPiprazole 30 MG TAB PO SCH (09:16)
[2017-03-03] MEDS: THIAMINE HCL 100 MG TAB PO SCH (09:16)
[2017-03-03] MEDS: clonazePAM 0.5 MG TAB PO SCH ×2 (09:17→20:02)
[2017-03-03] MEDS: BENZTROPINE MESYLATE 1 MG TAB PO SCH ×2 (09:17→20:02)
[2017-03-03] MEDS: FUROSEMIDE 40 MG TAB PO SCH (09:17)
[2017-03-03] MEDS: NIFEdipine 30 MG SUSTAINED RELEASE TAB PO SCH (09:17)
[2017-03-03] MEDS: ASPIRIN EC 81 MG TABEC PO SCH (09:17)
[2017-03-03 10:21] LABS: BICARBONATE 32.9 MEQ/L (21.0-32.0); POTASSIUM 3.4 MEQ/L (3.5-5.1)
[2017-03-03 13:16] VITALS: BP 120/76; PULSE 86; RESP 16; O2SAT 96
[2017-03-03] MEDS ORDERED: POTASSIUM CHLORIDE 10 MEQ CONTROLLED RELEASE TAB PO ONE (14:00)
--- NOTE | 2017-03-03 14:11 | HHI.PYPN ---
Subjective Remarks Pt seen and discussed with staff.He has been instrusive with staff but has not been agitated today. He has been compliant with medications and denies side effects. He asks MD "What's Up?!" repeatedly using exaggerated mannerisms. Speech is rambling and mildly pressured. NO SI/HI Objective Alert: Yes [place]: Person, Place Mood: Calm Affect: Flat Memory Intact: Comment (fair) Hallucinations: Other (Int stim) Delusions: Yes Delusion Type: Paranoid Suicidal: Ideation (No suicidal ideation.) Homicidal: Ideation (No HI.) Insight/Judgment poor Labs Test 03/03/17 09:43 Sodium Level 145 MEQ/L Potassium Level 3.4 MEQ/L Chloride Level 105 MEQ/L Carbon Dioxide Level 32.9 MEQ/L Anion Gap 7 MEQ/L Blood Urea Nitrogen 23 MG/DL Creatinine 1.24 MG/DL Estimat Glomerular Filtration 58 ML/MIN Rate Random Glucose 123 MG/DL Calcium Level 8.9 MG/DL Vitals/IOs Vital Signs Date Time Temp Pulse Resp B/P Pulse Ox O2 Delivery O2 Flow Rate FiO2 03/03/17 13:16 86 16 120/76 96 03/03/17 05:58 97.5 Intake and Output 03/02/17 03/02/17 03/03/17 08:00 16:00 00:00 Intake Total 360 ml 180 ml Balance 360 ml 180 ml Assessment & Plan Problem List: (1) Schizoaffective disorder, bipolar type ICD Code: F25.0 (2) Acute medication-induced akathisia ICD Code: G25.89 Assessment & Plan Continue david holguin plan. Continue to encourage compliance. Estimated LOS: days Justification for Cont. Inpt. impairments in self care and reality construction Request HC Surrog/Guard Advoc?: No Ashley Damon MD Mar 03, 2017 14:11
[2017-03-03 19:24] VITALS: BP 113/64; PULSE 88; TEMP 97.4; O2SAT 98
[2017-03-03] MEDS: traZODone HCL 50 MG TAB PO SCH (20:01)
[2017-03-03] MEDS: REMOVE OLD NICOTINE PATCH T-DERMAL SCH (20:02)
[2017-03-03] MEDS: ATORVASTATIN 20 MG TAB PO SCH (20:02)
[2017-03-03] MEDS: QUEtiapine FUMARATE 100 MG TAB PO SCH (20:02)
[2017-03-03] MEDS: LORazepam 1 MG TAB PO PRN (20:03)
[2017-03-04] MEDS: PROPRANOLOL HCL 10 MG TAB PO SCH ×2 (04:00→11:50)
[2017-03-04] MEDS: LORazepam 1 MG TAB PO PRN ×2 (04:45→14:56)
[2017-03-04 05:51] VITALS: BP 149/94; PULSE 83; RESP 18; TEMP 97; O2SAT 98
[2017-03-04] MEDS: THIAMINE HCL 100 MG TAB PO SCH (08:34)
[2017-03-04] MEDS: clonazePAM 0.5 MG TAB PO SCH ×2 (08:34→20:11)
[2017-03-04] MEDS: BENZTROPINE MESYLATE 1 MG TAB PO SCH (08:34)
[2017-03-04] MEDS: METOPROLOL TARTRATE 25 MG TAB PO SCH ×2 (08:34→20:11)
[2017-03-04] MEDS: ASPIRIN EC 81 MG TABEC PO SCH (08:34)
[2017-03-04] MEDS: NIFEdipine 30 MG SUSTAINED RELEASE TAB PO SCH (08:34)
[2017-03-04] MEDS: NICOTINE 21 MG/24 HR PATCH T-DERMAL SCH (08:35)
[2017-03-04] MEDS: ARIPiprazole 30 MG TAB PO SCH (08:35)
--- NOTE | 2017-03-04 09:39 | HHI.PYPN ---
Subjective Remarks Patient seen and examined. Chart reviewed. Case discussed with nursing staff who reports the patient remains disheveled, delusional and somewhat intrusive. On my examination today, the patient does indeed seem fairly disorganized with regards to his thought process. He approaches me and says, "may I ask you a question regarding cinematography?" He then goes on to ramble about his medications in a fashion that I cannot really understand. Affect is somewhat dysphoric. No evident side effects from medications. No physical complaints. I have reviewed patient's previous MARs from his several admissions here. I note patient has previously received: Abilify, Haldol/Dec, Zyprexa and Seroquel. Geodon was given PRN. Patient was ordered Latuda but never received this agent. Review of Systems ROS Limitations: Psychotic, Poor Historian Except as stated in HPI: all other systems reviewed are Neg Objective Alert: Yes [employer]: Person, Place Mood: Anxious Affect: Restricted (dysphoric) Memory Intact: Comment (Not formally assessed today.) Hallucinations: Other (Int stim) Delusions: Yes Delusion Type: Paranoid Suicidal: Ideation (No suicidal ideation.) Homicidal: Ideation (No HI.) Insight/Judgment Poor Remarks No abnormal motor movements noted. TP disorganized. Speech rambling. Grooming and hygiene poor. Labs Test 03/03/17 09:43 Sodium Level 145 MEQ/L Potassium Level 3.4 MEQ/L Chloride Level 105 MEQ/L Carbon Dioxide Level 32.9 MEQ/L Anion Gap 7 MEQ/L Blood Urea Nitrogen 23 MG/DL Creatinine 1.24 MG/DL Estimat Glomerular Filtration 58 ML/MIN Rate Random Glucose 123 MG/DL Calcium Level 8.9 MG/DL Labs reviewed. Decrement in GFR noted. Hypokalemia noted (repleted). Vitals/IOs Vital Signs Date Time Temp Pulse Resp B/P Pulse Ox O2 Delivery O2 Flow Rate FiO2 03/04/17 05:51 97.0 83 18 149/94 98 Intake and Output 03/03/17 03/03/17 03/04/17 08:00 16:00 00:00 Intake Total 180 ml 360 ml Balance 180 ml 360 ml Assessment & Plan Problem List: (1) Schizoaffective disorder, bipolar type ICD Code: F25.0 Assessment & Plan Discontinue Seroquel as patient's compliance with this agent is poor. Looking at previous medication trials, I think it would be reasonable to initiate a trial of a typical other than Haldol, and then if response to this agent is inadequate proceed to clozapine. To this end: discontinue Abilify and replace with loxapine 10mg BID. Discontinue scheduled Cogentin (which may be worsening mental status without ongoing indication) and Inderal (with which adherence is spotty). I will make Cogentin available PRN. Sleep poor. Consider replacing trazodone with a different hypnotic. Check BMP in morning to trend renal function. Hospitalist input appreciated. Continue to monitor on high acuity unit. Continue other medications and care as ordered. Justification for Cont. Inpt. Impairment in self-care. Impairment in reality construction. Medication changes in process. High risk for decompensation in a less restrictive environment. Discharge Planning Counselor informs me that patient has been rejected by [facility] due to having [facility] insurance. Consequently, we will be seeking instead long-term [facility] through the [facility]. Request HC Surrog/Guard Advoc?: No Lee Stanley MD Mar 04, 2017 09:39
[2017-03-04] MEDS ORDERED: BENZTROPINE MESYLATE 1 MG TAB PO PRN (13:30)
[2017-03-04] MEDS ORDERED: BENZTROPINE MESYLATE 2 MG/2 ML VIAL IM PRN (13:30)
--- NOTE | 2017-03-04 13:34 | PD.ONC.PN ---
Subjective Subjective Remarks Afebrile overnight. Patient seen in group room. No complaints. "There is nothing wrong with my platelets." Objective Data Date Time Temp Pulse Resp B/P Pulse Ox O2 Delivery O2 Flow Rate FiO2 03/04/17 05:51 97.0 83 18 149/94 98 03/03/17 19:24 97.4 88 113/64 98 Result Diagram: 03/02/17 0550 03/03/17 0943 Administered Medications Medications (Trade) Dose Ordered Sig/Mesha Route PRN Reason Start Time Stop Time Status Last Admin Dose Admin Lorazepam (Ativan Inj) 1 mg Q6H PRN IM ANXIETY, unable to take PO 01/17/17 22:00 03/02/17 07:49 Nicotine (Habitrol 21 Mg Patch.24 Hr) 1 patch DAILY T-DERMAL 01/18/17 09:00 03/02/17 09:00 Miscellaneous Information 1 HS T-DERMAL 01/18/17 21:00 02/04/17 20:26 Aspirin (Ecotrin Ec) 81 mg DAILY PO 01/19/17 09:00 03/04/17 08:34 Atorvastatin Calcium (Lipitor) 20 mg HS PO 01/18/17 21:00 03/03/17 20:02 Metoprolol Tartrate (Lopressor) 75 mg BID PO 01/18/17 21:00 03/04/17 08:34 Nifedipine (Procardia Xl) 30 mg DAILY PO 01/19/17 09:00 03/04/17 08:34 Trazodone HCl (Desyrel) 100 mg HS PO 01/18/17 21:00 03/03/17 20:01 Thiamine HCl (Vitamin B1) 100 mg DAILY PO 01/18/17 14:15 03/04/17 08:34 Clonazepam (KlonoPIN) 0.5 mg Q12HR PO 01/30/17 21:00 03/04/17 08:34 Lorazepam (Ativan) 1 mg Q6H PRN PO ANXIETY 02/21/17 22:30 03/04/17 04:45 Objective Remarks GENERAL: Middle aged male, sitting up in chair in group room, eating lunch. SKIN: Warm and dry. HEAD: Normocephalic. EYES: No injection or drainage. CV: RRR Lungs: CTAB NEUROLOGICAL: awake and alert, normal speech. moving all extremities. Assessment/Plan Problem List: (1) Thrombocytopenia Status: Acute Plan: 03/04: no bleeding. platelet count remains at baseline. hematology will sign off. please call or reconsult if needed. --d/t drug effect. --most likely due to psychotic medications. --U/S abdomen: lack of patient cooperation limited examination. --RF, FRANCHESKA , hep panel, HIV all are negative. Attending Statement no new c/o plat are back to baseline. sign off available prn. [place] Jovel Mar 04, 2017 13:34 Jam Alexander MD Mar 04, 2017 21:10
--- NOTE | 2017-03-04 14:51 | HHI.PR ---
Addendum to Inpatient Note Additional Information Chart reviewed. Platelets stable. No evidence of bleeding. Hematology has signed off. BP fairly well controlled. Will increase Procardia dose. Continue to monitor blood pressure. Patient medically stable. Will sign off and please reconsult if needed. Hyacinth Esteban Mar 04, 2017 14:51
[2017-03-04 18:27] VITALS: BP 96/57; PULSE 81; RESP 18; TEMP 97.4; O2SAT 99
[2017-03-04] MEDS: ATORVASTATIN 20 MG TAB PO SCH (20:11)
[2017-03-04] MEDS: traZODone HCL 50 MG TAB PO SCH (20:11)
[2017-03-04] MEDS: LOXAPINE 5 MG CAP PO SCH (20:11)
[2017-03-04] MEDS: REMOVE OLD NICOTINE PATCH T-DERMAL SCH (20:28)
[2017-03-05 05:58] VITALS: BP 139/81; PULSE 75; RESP 18; TEMP 97.4
[2017-03-05 07:46] LABS: AUTOMATED NEUTROPHIL # 3.7 TH/MM3 (1.8-7.7); BASOPHIL # 0.1 TH/MM3 (0-0.2); BASOPHIL % 1.1 % (0.0-2.0); EOSINOPHIL # 0.4 TH/MM3 (0-0.4); EOSINOPHIL % 4.9 % (0.0-4.0); LYMPHOCYTE # 3.1 TH/MM3 (1.0-4.8); MEAN CELL VOLUME 88.9 FL (80.0-100.0); MEAN CORPUSCULAR HEMOGLOBIN 29.2 PG (27.0-34.0); MEAN CORPUSCULAR HGB CONC 32.9 % (32.0-36.0); MONO % 8.4 % (0.0-8.0); NEUT % 46.6 % (16.0-70.0); PLATELET COUNT 133 TH/MM3 (150-450); RED CELL DISTRIBUTION WIDTH 14.6 % (11.6-17.2); WHITE BLOOD COUNT 7.9 TH/MM3 (4.0-11.0)
[2017-03-05 07:51] LABS: HEMO FLAGS DIFF FINAL
[2017-03-05 08:06] LABS: BICARBONATE 31.7 MEQ/L (21.0-32.0); POTASSIUM 4.1 MEQ/L (3.5-5.1)
[2017-03-05] MEDS: METOPROLOL TARTRATE 25 MG TAB PO SCH ×2 (08:23→20:02)
[2017-03-05] MEDS: ASPIRIN EC 81 MG TABEC PO SCH (08:24)
[2017-03-05] MEDS: NIFEdipine 60 MG SUSTAINED RELEASE TAB PO SCH (08:24)
[2017-03-05] MEDS: THIAMINE HCL 100 MG TAB PO SCH (08:24)
[2017-03-05] MEDS: LOXAPINE 5 MG CAP PO SCH ×2 (08:24→20:04)
[2017-03-05] MEDS: clonazePAM 0.5 MG TAB PO SCH ×2 (08:24→20:03)
[2017-03-05] MEDS: NICOTINE 21 MG/24 HR PATCH T-DERMAL SCH (09:00)
--- NOTE | 2017-03-05 09:27 | HHI.PYPN ---
Subjective Remarks Patient seen and examined. Chart reviewed. Case discussed in treatment team with nurse, counselor and occupational therapist. On my examination today, the patient is somewhat discharge focused. He believes that he can be returned home to the care of 2 of his friends. Remains fairly disorganized. When he is discussing discharge, for example, he asks for "the great return to the above you, Leilani Act lady. Return me to the general population." Denies side effects from medications but just received first dose of loxapine this morning. No physical complaints. Review of Systems ROS Limitations: Psychotic, Poor Historian Except as stated in HPI: all other systems reviewed are Neg Objective Alert: Yes [place]: Person, Place Mood: Calm Affect: Flat Memory Intact: Comment (Not formally assessed) Hallucinations: Other (remains somewhat internally preoccupied) Delusions: No Delusion Type: Other (no delfina delusions) Suicidal: Ideation (no SI) Homicidal: Ideation (no HI) Insight/Judgment Poor Remarks No motor abnormalities noted. No worsened EPS off of scheduled Cogentin. No noted akathisia symptoms off of scheduled Inderal. Thought process still fairly disorganized. Speech rambling. Grooming and hygiene fair to poor at best. Labs Test 03/05/17 07:20 White Blood Count 7.9 TH/MM3 Red Blood Count 4.50 MIL/MM3 Hemoglobin 13.1 GM/DL Hematocrit 40.0 % Mean Corpuscular Volume 88.9 FL Mean Corpuscular Hemoglobin 29.2 PG Mean Corpuscular Hemoglobin 32.9 % Concent Red Cell Distribution Width 14.6 % Platelet Count 133 TH/MM3 Mean Platelet Volume 10.7 FL Neutrophils (%) (Auto) 46.6 % Lymphocytes (%) (Auto) 39.0 % Monocytes (%) (Auto) 8.4 % Eosinophils (%) (Auto) 4.9 % Basophils (%) (Auto) 1.1 % Neutrophils # (Auto) 3.7 TH/MM3 Lymphocytes # (Auto) 3.1 TH/MM3 Monocytes # (Auto) 0.7 TH/MM3 Eosinophils # (Auto) 0.4 TH/MM3 Basophils # (Auto) 0.1 TH/MM3 CBC Comment DIFF FINAL Differential Comment Sodium Level 143 MEQ/L Potassium Level 4.1 MEQ/L Chloride Level 108 MEQ/L Carbon Dioxide Level 31.7 MEQ/L Anion Gap 3 MEQ/L Blood Urea Nitrogen 27 MG/DL Creatinine 1.07 MG/DL Estimat Glomerular Filtration 69 ML/MIN Rate Random Glucose 93 MG/DL Calcium Level 9.2 MG/DL Laboratories reviewed. Anemia improved. Thrombocytopenia stable. GFR continues fairly wide oscillation but presently within historical baseline for this admission. Vitals/IOs Vital Signs Date Time Temp Pulse Resp B/P Pulse Ox O2 Delivery O2 Flow Rate FiO2 03/05/17 05:58 97.4 75 18 139/81 03/04/17 18:27 99 Assessment & Plan Problem List: (1) Schizoaffective disorder, bipolar type ICD Code: F25.0 Assessment & Plan Continue loxapine as ordered as patient only received his first dose of this medication this morning. Plan to titrate this medication to effect. I have placed blood pressure parameters on patient's antihypertensives in case titrating psychotropics should lead to hypotension with these medications. Continue to monitor on the high acuity unit. Continue other medications and care as ordered. Justification for Cont. Inpt. Impairment in reality construction. Impairment in self-care outside of the hospital setting. Medication changes in process. High risk for decompensation in a less restrictive environment. Discharge Planning Counselor exploring alternatives as state psychiatric hospitalization is reportedly not possible in this patient with [facility] insurance. Request HC Surrog/Guard Advoc?: No Lee Stanley MD Mar 05, 2017 09:27
--- NOTE | 2017-03-05 15:36 | PD.TTN ---
Present for Treatment Team Treatment Team Staff: Provider (Dr. Stanley), Nurse (Yelitza Ford, ANDREY), Psych Therapist (BERT Edmonds), Occupational Therapist (MARIA EUGENIA Ritchie) Patient Problems 1. Discharge planning 2. Medication compliance 3. Knowledge deficit 4. Lack of coping skills Progress Toward Goals Provider Input: Medication regiment is being adjusted to help assist with further stabilization. Nurse Input: Pt appears medication compliant, cooperative, appropriate, disorganized and confused. Psych Therapist Input: Pt appears to discharge focused, disorganized, confused, delusional and with poor insight into condition/need for care. Occupational Therapist Input: Pt rarely attends groups but when he does he is confused and hard to redirect. Documentation Scribe: BERT Edmonds Date Resolved: Mar 05, 2017 Dmitriy Barnes Mar 05, 2017 15:35
[2017-03-05 18:04] VITALS: BP 108/98; PULSE 102; RESP 18; TEMP 97.9; O2SAT 98
[2017-03-05] MEDS: ATORVASTATIN 20 MG TAB PO SCH (20:03)
[2017-03-05] MEDS: traZODone HCL 50 MG TAB PO SCH (20:03)
[2017-03-05] MEDS: REMOVE OLD NICOTINE PATCH T-DERMAL SCH (20:05)
[2017-03-05] MEDS: LORazepam 1 MG TAB PO PRN (23:00)
[2017-03-06 06:03] VITALS: BP 153/95; PULSE 99; RESP 16; TEMP 97.1; O2SAT 96
[2017-03-06] MEDS: ASPIRIN EC 81 MG TABEC PO SCH (08:25)
[2017-03-06] MEDS: clonazePAM 0.5 MG TAB PO SCH ×2 (08:25→20:45)
[2017-03-06] MEDS: THIAMINE HCL 100 MG TAB PO SCH (08:25)
[2017-03-06] MEDS: METOPROLOL TARTRATE 25 MG TAB PO SCH ×2 (08:25→20:45)
[2017-03-06] MEDS: NIFEdipine 60 MG SUSTAINED RELEASE TAB PO SCH (08:25)
[2017-03-06] MEDS: LOXAPINE 5 MG CAP PO SCH ×2 (08:25→20:45)
[2017-03-06] MEDS: NICOTINE 21 MG/24 HR PATCH T-DERMAL SCH (09:00)
--- NOTE | 2017-03-06 09:55 | HHI.PYPN ---
Subjective Remarks Patient seen and examined with counselor and nurse. Chart reviewed. Case discussed with nursing staff who reports that the patient slept poorly overnight. He did receive scheduled trazodone. On my examination today, the patient remains somewhat disorganized. He does seem marginally less so today however since starting the loxapine. He tells me that he has made "remarkable improvement" but this seems to be in service of hastening his discharge. He is accepting of temporary placement in an assisted living setting, which does seem to be movement in a positive direction in his case. No SI or HI voiced. Denies side effects from medications. No physical complaints. Review of Systems ROS Limitations: Psychotic, Poor Historian Except as stated in HPI: all other systems reviewed are Neg Objective Alert: Yes [place]: Person, Place Mood: Calm Affect: Blunted Memory Intact: Comment (Not formally assessed) Hallucinations: Other (internally stimulated) Delusions: No Delusion Type: Other (no delfina delusions) Suicidal: Ideation (no SI) Homicidal: Ideation (no HI) Insight/Judgment Poor Remarks No abnormal motor movements noted. Thought process remains somewhat disorganized. Grooming and hygiene fair to poor at best. Labs Labs reviewed. Vitals/IOs Vital Signs Date Time Temp Pulse Resp B/P Pulse Ox O2 Delivery O2 Flow Rate FiO2 03/06/17 06:03 97.1 99 16 153/95 96 Assessment & Plan Problem List: (1) Schizoaffective disorder, bipolar type ICD Code: F25.0 Assessment & Plan Titrate loxapine to 15 mg twice daily to target psychosis. Replace trazodone with Ambien 5 mg as needed at bedtime for sleep, may repeat 1 in 60 minutes if needed. Continue to monitor on the high acuity unit. Continue other medications and care as ordered. Justification for Cont. Inpt. Impairment in self-care, particularly outside of the hospital setting. Medication changes in process. High risk for decompensation in a less restrictive environment. Discharge Planning Patient is not eligible to go to the [facility]. Counselors exploring alternative placement options. Request HC Surrog/Guard Advoc?: No Lee Stanley MD Mar 06, 2017 09:55
[2017-03-06 18:12] VITALS: BP 136/84; PULSE 68; RESP 16; TEMP 97.1; O2SAT 97
[2017-03-06] MEDS: ATORVASTATIN 20 MG TAB PO SCH (20:44)
[2017-03-06] MEDS: ZOLPIDEM TARTRATE 5 MG TAB PO PRN ×2 (20:45→23:58)
[2017-03-06] MEDS: REMOVE OLD NICOTINE PATCH T-DERMAL SCH (20:46)
[2017-03-06] MEDS: LORazepam 1 MG TAB PO PRN (23:58)
[2017-03-07 06:07] VITALS: BP 154/96; PULSE 80; RESP 18; TEMP 96.9; O2SAT 96
[2017-03-07] MEDS: NICOTINE 21 MG/24 HR PATCH T-DERMAL SCH (09:00)
[2017-03-07] MEDS: ASPIRIN EC 81 MG TABEC PO SCH (09:40)
[2017-03-07] MEDS: LOXAPINE 5 MG CAP PO SCH ×2 (09:41→20:32)
[2017-03-07] MEDS: clonazePAM 0.5 MG TAB PO SCH ×2 (09:42→20:32)
[2017-03-07] MEDS: THIAMINE HCL 100 MG TAB PO SCH (09:42)
[2017-03-07] MEDS: NIFEdipine 60 MG SUSTAINED RELEASE TAB PO SCH (09:42)
[2017-03-07] MEDS: METOPROLOL TARTRATE 25 MG TAB PO SCH ×2 (09:42→20:35)
--- NOTE | 2017-03-07 09:51 | HHI.PYPN ---
Subjective Remarks Patient seen and examined with nurse. Chart reviewed. Case discussed with nursing staff who reports that the patient has been medication compliant. On my examination today, the patient is quite discharge focused. He believes that he should be discharged to an apartment and says that he can receive Meals on Wheels there if we have any concern about him feeding himself. Thought process remains somewhat disorganized, although the patient does seem to be slowly improving with the loxapine. Perhaps a little more fretful today and requires frequent reassurance from the nurse. No side effects from medications. No physical complaints. Review of Systems ROS Limitations: Psychotic, Poor Historian Except as stated in HPI: all other systems reviewed are Neg Objective Alert: Yes [place]: Person, Place Mood: Anxious Affect: Blunted Memory Intact: Comment (Not formally assessed) Hallucinations: Other (remains internally preoccupied but perhaps less so) Delusions: No Delusion Type: Other (no delusions) Suicidal: Ideation (no SI) Homicidal: Ideation (no HI) Insight/Judgment Poor Remarks No abnormal motor movements noted. Thought process somewhat disorganized. Speech rambling although perhaps a little less so than in previous encounters. Grooming and hygiene remained poor. Labs Labs reviewed. Vitals/IOs Vital Signs Date Time Temp Pulse Resp B/P Pulse Ox O2 Delivery O2 Flow Rate FiO2 03/07/17 06:07 96.9 80 18 154/96 96 Assessment & Plan Problem List: (1) Schizoaffective disorder, bipolar type ICD Code: F25.0 Assessment & Plan Continue loxapine as ordered with plans to continue to titrate this agent. To consider increasing the patient's scheduled Klonopin if anxiety persists. Continue to monitor on high acuity unit. Continue other medications and care as ordered. Justification for Cont. Inpt. Impairment in self-care. High risk for decompensation in a less restrictive setting. Discharge Planning Case discussed with counselor who will begin referring the patient for assisted- living placements as state psychiatric hospitalization is not an option in this patient with [facility] insurance. Request HC Surrog/Guard Advoc?: No Lee Stanley MD Mar 07, 2017 09:51
[2017-03-07] MEDS: LORazepam 1 MG TAB PO PRN (12:13)
[2017-03-07 15:55] VITALS: BP 154/100; PULSE 95; RESP 18; TEMP 97.3; O2SAT 97
[2017-03-07] MEDS: ZOLPIDEM TARTRATE 5 MG TAB PO PRN (20:32)
[2017-03-07] MEDS: ATORVASTATIN 20 MG TAB PO SCH (20:32)
[2017-03-07] MEDS: REMOVE OLD NICOTINE PATCH T-DERMAL SCH (20:35)
[2017-03-08 06:20] VITALS: BP 162/98; PULSE 131; RESP 18; TEMP 98.7; O2SAT 96
[2017-03-08] MEDS: NICOTINE 21 MG/24 HR PATCH T-DERMAL SCH (09:00)
[2017-03-08] MEDS: METOPROLOL TARTRATE 25 MG TAB PO SCH ×2 (09:25→22:08)
[2017-03-08] MEDS: NIFEdipine 60 MG SUSTAINED RELEASE TAB PO SCH (09:25)
[2017-03-08] MEDS: clonazePAM 0.5 MG TAB PO SCH ×2 (09:25→22:08)
[2017-03-08] MEDS: LOXAPINE 5 MG CAP PO SCH ×2 (09:25→22:20)
[2017-03-08] MEDS: ASPIRIN EC 81 MG TABEC PO SCH (09:25)
[2017-03-08] MEDS: THIAMINE HCL 100 MG TAB PO SCH (09:25)
[2017-03-08 09:26] VITALS: BP 132/82; PULSE 76; RESP 18; TEMP 98.7; O2SAT 97
--- NOTE | 2017-03-08 10:28 | HHI.PYPN ---
Subjective Remarks Patient seen and examined with nurse. Chart reviewed. Case discussed with nursing staff. Patient remains discharge focused on my evaluation. He is more strident in his desire to leave. TP remains somewhat disorganized. He remains internally preoccupied. Speech is rambling. Intrusive; tries to interrupt me several times while rounding to continue to insist on discharge. No side effects from medications. No physical complaints. Review of Systems ROS Limitations: Psychotic, Poor Historian Except as stated in HPI: all other systems reviewed are Neg Objective Alert: Yes [place]: Person, Place Mood: Anxious Affect: Restricted Memory Intact: Comment (Not formally assessed) Hallucinations: Other (Int stim) Delusions: Yes Delusion Type: Paranoid Suicidal: Ideation (No SI) Homicidal: Ideation (No HI) Insight/Judgment Poor Remarks No abnormal motor movements noted. Labs Labs reviewed. Vitals/IOs Vital Signs Date Time Temp Pulse Resp B/P Pulse Ox O2 Delivery O2 Flow Rate FiO2 03/08/17 09:26 98.7 76 18 132/82 97 Assessment & Plan Problem List: (1) Schizoaffective disorder, bipolar type ICD Code: F25.0 Assessment & Plan Titrate loxapine to 20mg BID with plans to continue to titrate to effect. Continue to monitor on high acuity unit. Continue other medications and care as ordered. Justification for Cont. Inpt. Impairment in reality construction. Medication changes in process. High risk for decompensation in a less restrictive environment. Discharge Planning Patient will require placement or else referral to a [facility] care facility. Counselor is working on this. Request HC Surrog/Guard Advoc?: No Lee Stanley MD Mar 08, 2017 10:28
[2017-03-08 17:00] VITALS: BP 130/70; PULSE 89; RESP 16; TEMP 97.5; O2SAT 97
[2017-03-08] MEDS: REMOVE OLD NICOTINE PATCH T-DERMAL SCH (21:00)
[2017-03-08] MEDS: ATORVASTATIN 20 MG TAB PO SCH (22:08)
[2017-03-09 06:11] VITALS: BP 151/91; PULSE 88; RESP 18; TEMP 97.6; O2SAT 96
[2017-03-09] MEDS: clonazePAM 0.5 MG TAB PO SCH ×2 (08:18→21:07)
[2017-03-09] MEDS: THIAMINE HCL 100 MG TAB PO SCH (08:18)
[2017-03-09] MEDS: ASPIRIN EC 81 MG TABEC PO SCH (08:18)
[2017-03-09] MEDS: NIFEdipine 60 MG SUSTAINED RELEASE TAB PO SCH (08:19)
[2017-03-09] MEDS: METOPROLOL TARTRATE 25 MG TAB PO SCH ×2 (08:19→21:07)
[2017-03-09] MEDS: LOXAPINE 5 MG CAP PO SCH ×2 (08:19→21:07)
[2017-03-09] MEDS: NICOTINE 21 MG/24 HR PATCH T-DERMAL SCH (08:19)
[2017-03-09] MEDS: REMOVE OLD NICOTINE PATCH T-DERMAL SCH (08:20)
--- NOTE | 2017-03-09 16:44 | HHI.PYPN ---
Subjective Remarks Patient was seen and case discussed with nursing. Per nursing he has not been eating well for the past couple days. When asked about it patient says he is not hungry. He remains withdrawn, flat and hyperverbal. Largely seclusive to self. Is markedly delayed responses to questions. When asked if he had any concerns he said he had trouble with people. When asked further he said that these are people outside of the hospital but he could not specify further. Denies suicidal ideation intent or plan Objective Alert: Yes [place]: Person, Place Mood: Depressed Affect: Flat Memory Intact: Comment (Not formally assessed) Hallucinations: Other (Int stim) Delusions: Yes Delusion Type: Paranoid Suicidal: Ideation (No SI) Homicidal: Ideation (No HI) Insight/Judgment Poor Vitals/IOs Vital Signs Date Time Temp Pulse Resp B/P Pulse Ox O2 Delivery O2 Flow Rate FiO2 03/09/17 06:11 97.6 88 18 151/91 96 Assessment & Plan Problem List: (1) Schizoaffective disorder, bipolar type ICD Code: F25.0 Assessment & Plan Continue current treatment plan Justification for Cont. Inpt. Patient will decompensate in a less restrictive setting Request HC Surrog/Guard Advoc?: No Kurt Garcia DO Mar 09, 2017 16:44
[2017-03-09 17:00] VITALS: BP 136/78; PULSE 85; RESP 18; TEMP 98.2; O2SAT 100
[2017-03-09] MEDS: ATORVASTATIN 20 MG TAB PO SCH (21:07)
[2017-03-09] MEDS: ZOLPIDEM TARTRATE 5 MG TAB PO PRN (21:08)
[2017-03-10 05:54] VITALS: BP 140/79; PULSE 77; RESP 17; TEMP 98.1; O2SAT 95
[2017-03-10] MEDS: clonazePAM 0.5 MG TAB PO SCH ×2 (08:55→21:00)
[2017-03-10] MEDS: LOXAPINE 5 MG CAP PO SCH ×2 (08:55→21:00)
[2017-03-10] MEDS: THIAMINE HCL 100 MG TAB PO SCH (08:55)
[2017-03-10] MEDS: NIFEdipine 60 MG SUSTAINED RELEASE TAB PO SCH (08:55)
[2017-03-10] MEDS: METOPROLOL TARTRATE 25 MG TAB PO SCH ×2 (08:55→21:00)
[2017-03-10] MEDS: ASPIRIN EC 81 MG TABEC PO SCH (08:55)
[2017-03-10] MEDS: NICOTINE 21 MG/24 HR PATCH T-DERMAL SCH (08:58)
--- NOTE | 2017-03-10 16:38 | HHI.PYPN ---
Subjective Remarks Patient was seen and case discussed with nursing. Patient is now eating well. Pays more talkative, more interactive, approaches initially with a handshake. Thought process is less delayed. Continues to have poor insight and denies psychotic symptoms. Behaving well on the unit and compliant with medications Objective Alert: Yes [place]: Person, Place Mood: Depressed Affect: Flat Memory Intact: Comment (Not formally assessed) Hallucinations: Other (Int stim) Delusions: Yes Delusion Type: Paranoid Suicidal: Ideation (No SI) Homicidal: Ideation (No HI) Insight/Judgment Poor Vitals/IOs Vital Signs Date Time Temp Pulse Resp B/P Pulse Ox O2 Delivery O2 Flow Rate FiO2 03/10/17 05:54 98.1 77 17 140/79 95 Assessment & Plan Problem List: (1) Schizoaffective disorder, bipolar type ICD Code: F25.0 Assessment & Plan Continue current treatment plan Justification for Cont. Inpt. Patient will decompensate in a less restrictive setting Request HC Surrog/Guard Advoc?: No Kurt Garcia DO Mar 10, 2017 16:38
[2017-03-10 19:50] VITALS: BP 145/90; PULSE 125; RESP 16; TEMP 97.4; O2SAT 97
[2017-03-10] MEDS: ATORVASTATIN 20 MG TAB PO SCH (21:00)
[2017-03-11 05:44] VITALS: BP 163/110; PULSE 87; RESP 18; TEMP 97.1; O2SAT 99
[2017-03-11 07:36] VITALS: BP 162/98; PULSE 110
[2017-03-11] MEDS: METOPROLOL TARTRATE 25 MG TAB PO SCH ×2 (08:01→21:08)
[2017-03-11] MEDS: clonazePAM 0.5 MG TAB PO SCH ×2 (08:03→21:08)
[2017-03-11] MEDS: LOXAPINE 5 MG CAP PO SCH ×3 (08:03→21:08)
[2017-03-11] MEDS: NIFEdipine 60 MG SUSTAINED RELEASE TAB PO SCH (08:04)
[2017-03-11] MEDS: ASPIRIN EC 81 MG TABEC PO SCH (08:04)
[2017-03-11] MEDS: THIAMINE HCL 100 MG TAB PO SCH (08:04)
--- NOTE | 2017-03-11 09:11 | HHI.PYPN ---
Subjective Remarks Patient seen and examined with counselor and nurse. Chart reviewed. Case discussed with nursing staff. On my examination today, the patient seems a little more organized. He remains little discharge focused. Less internally preoccupied. Less anxious today versus before the weekend. No side effects from medications. No physical complaints. Review of Systems ROS Limitations: Poor Historian Except as stated in HPI: all other systems reviewed are Neg Objective Alert: Yes [place]: Person, Place Mood: Calm Affect: Flat Memory Intact: Comment (Not formally assessed) Hallucinations: Other (Less int stim) Delusions: Yes Delusion Type: Paranoid (less) Suicidal: Ideation (No suicidal ideation) Homicidal: Ideation (No homicidal ideation) Insight/Judgment Poor Remarks No motor abnormalities noted. Thought process a little more linear today. Speech more coherent. Grooming and hygiene fair at best. Labs Labs reviewed. No new labs. Vitals/IOs Vital Signs Date Time Temp Pulse Resp B/P Pulse Ox O2 Delivery O2 Flow Rate FiO2 03/11/17 07:36 110 162/98 03/11/17 05:44 97.1 18 99 Assessment & Plan Problem List: (1) Schizoaffective disorder, bipolar type ICD Code: F25.0 Assessment & Plan Titrate loxapine to 20/10/20 mg to target psychotic symptoms. Continue Klonopin as ordered. Check a platelet count and a BUN/creatinine in the morning to follow-up on these issues. Continue to monitor on the high acuity unit. Continue other medications and care as ordered. Justification for Cont. Inpt. Impairment in reality construction. Impairment in self-care. Medication changes. High risk for decompensation in a less restrictive environment. Discharge Planning Given that [facility] not an option in this [facility] patient, counselor has been exploring alternative placement options. Counselor reports that [facility] is coming to evaluate patient for possible placement there. Request HC Surrog/Guard Advoc?: No Lee Stanley MD Mar 11, 2017 09:11
[2017-03-11] MEDS ORDERED: LISINOPRIL 10 MG TAB PO ONE (14:00)
--- NOTE | 2017-03-11 16:01 | HHI.PR ---
Subjective Remarks We were re-consulted due to elevated blood pressure. Follow-up on patient with schizophrenia, recent hospitalization for hepatic encephalopathy and rhabdomyolysis, hypertension, atrial fibrillation, thrombocytopenia and bilateral lower extremity edema. Patient is sitting in his chair, no acute concerns. Does not say much. However, he denies any chest pain, SOB, fever, chills. Objective Vitals Vital Signs Date Time Temp Pulse Resp B/P Pulse Ox O2 Delivery O2 Flow Rate FiO2 03/11/17 07:36 110 162/98 03/11/17 05:44 97.1 87 18 163/110 99 03/10/17 19:50 97.4 125 16 145/90 97 Imaging Last Impressions Lower Extremity Ultrasound 02/26/17 0000 Signed Impressions: Service Date/Time: Sunday, February 26, 2017 21:12 - CONCLUSION: 1. No DVT. 2. Subcutaneous edema involving the calves bilaterally. Josué Colon Jr., MD Abdomen Ultrasound 02/20/17 0000 Signed Impressions: Service Date/Time: Monday, February 20, 2017 12:19 - CONCLUSION: Very limited evaluation because of lack of patient cooperation. Justin Guzman MD Chest X-Ray 01/20/17 0000 Signed Impressions: Service Date/Time: Friday, January 20, 2017 21:49 - CONCLUSION: The lungs are clear. Josué Henning MD Objective Remarks GENERAL: Alert, NAD. SKIN: Warm and dry. HEAD: Normocephalic. EYES: No scleral icterus. No injection or drainage. NECK: Supple, trachea midline. No JVD or lymphadenopathy. CARDIOVASCULAR: Regular rate and rhythm without murmurs, gallops, or rubs. RESPIRATORY: Breath sounds equal bilaterally. No accessory muscle use. GASTROINTESTINAL: Abdomen soft, non-tender, nondistended. MUSCULOSKELETAL: No cyanosis, or edema. BACK: Nontender without obvious deformity. No CVA tenderness. Procedures none A/P Problem List: (1) Schizoaffective disorder, bipolar type ICD Code: F25.0 Status: Chronic (2) Tobacco abuse ICD Code: Z72.0 Status: Chronic (3) Hypertension ICD Code: I10 Status: Chronic (4) Atrial fibrillation ICD Code: I48.91 Status: Acute (5) Acute kidney injury ICD Code: N17.9 Status: Acute Assessment and Plan 66-year-old male with past medical history of hypertension, atrial fibrillation , depression, schizophrenia, anxiety and HLD who is an inpatient at psychiatric facility and hospitalist services have been consulted for medical management. Schizophrenia - Management per psychiatric team Hypertension - Nifedipine 60 mg daily. Will add Lisinopril 10mg Qday. - Continue with metoprolol 75 mg twice a day - Goal BP < 150/90. A. fib, rate controlled - Continue Aspirin 81mg Qday. - Continue Metoprolol 75mg BID for rate control. - [id number] score 3, patient will need to discuss post hospitalization regarding anti-coagulation with Warfarin or NOACs such as Apixaban. - Acute kidney injury - Creatinine was 1.55 on 02/26/2017. Improved to 1.08 on 03/05/2017. - Avoid nephrotoxins including NSAIDs. Full code. Ambulation. Florencio Zuniga DO Mar 11, 2017 4:01 pm
[2017-03-11 17:56] VITALS: BP 134/88; PULSE 79; RESP 18; TEMP 98.2; O2SAT 99
[2017-03-11] MEDS: ATORVASTATIN 20 MG TAB PO SCH (21:08)
[2017-03-12] VITALS (7 sets, daily range): BP systolic 127–180; BP diastolic 70–117; PULSE 68–134; RESP 17–19; TEMP 97.8–98.9; O2SAT 97–98
[2017-03-12] MEDS: THIAMINE HCL 100 MG TAB PO SCH (08:44)
[2017-03-12] MEDS: NIFEdipine 60 MG SUSTAINED RELEASE TAB PO SCH (08:45)
[2017-03-12] MEDS: LOXAPINE 5 MG CAP PO SCH ×3 (08:45→21:08)
[2017-03-12] MEDS: ASPIRIN EC 81 MG TABEC PO SCH (08:45)
[2017-03-12] MEDS: METOPROLOL TARTRATE 25 MG TAB PO SCH ×2 (08:45→21:08)
[2017-03-12] MEDS: clonazePAM 0.5 MG TAB PO SCH ×2 (08:45→21:08)
[2017-03-12] MEDS: LISINOPRIL 10 MG TAB PO SCH (08:46)
[2017-03-12] MEDS: cloNIDine HCL 0.1 MG TAB PO PRN (09:48)
--- NOTE | 2017-03-12 11:36 | HHI.PYPN ---
Subjective Remarks Patient seen and examined with counselor and nurse. Chart reviewed. Case discussed with nursing staff who reports that the patient is somewhat less intrusive but otherwise minimally changed. On my examination initially, the patient presents as somewhat confused with some paucity of thought. Nursing staff checks his blood pressure and finds at elevated and administers clonidine. On reevaluation by myself somewhat later, the patient is more appropriate. Denies any AVH. No SI or HI. No side effects from medications. Denies any chest pain, shortness of breath, other hypertensive urgency/ emergency symptoms. Review of Systems ROS Limitations: Psychotic, Poor Historian Except as stated in HPI: all other systems reviewed are Neg Objective Alert: Yes [place]: Person, Place Mood: Calm Affect: Blunted Memory Intact: Comment (not assessed) Hallucinations: Other (denies AVH) Delusions: Yes Delusion Type: Paranoid (lessening) Suicidal: Ideation (no SI) Homicidal: Ideation (no HI) Insight/Judgment Poor Remarks Thought process more linear today versus yesterday on my reevaluation. No motor abnormalities noted on reevaluation. No focal weakness or speech difficulty. Labs Test 03/12/17 06:42 Platelet Count 137 TH/MM3 Blood Urea Nitrogen 27 MG/DL Creatinine 1.22 MG/DL BUN/Creatinine Ratio 22 RATIO Labs reviewed. Platelets stable. Creatinine slightly increased at 1.22. Vitals/IOs Vital Signs Date Time Temp Pulse Resp B/P Pulse Ox O2 Delivery O2 Flow Rate FiO2 03/12/17 10:33 98.9 68 19 143/83 97 Assessment & Plan Problem List: (1) Schizoaffective disorder, bipolar type ICD Code: F25.0 Assessment & Plan Continue loxapine as ordered. Could consider further titration of this agent to target residual psychotic symptoms. Hospitalist is following to manage blood pressures, which have been somewhat elevated. Appreciate assistance. Continue to monitor on inpatient unit. Continue other medications and care as ordered. Justification for Cont. Inpt. Impairment in self-care. High risk for decompensation in a less restrictive environment. Discharge Planning Placement. Request HC Surrog/Guard Advoc?: No Lee Stanley MD Mar 12, 2017 11:36
[2017-03-12] MEDS: ATORVASTATIN 20 MG TAB PO SCH (21:08)
[2017-03-13 04:24] VITALS: BP 180/110
[2017-03-13] MEDS: cloNIDine HCL 0.1 MG TAB PO PRN (04:25)
[2017-03-13 04:45] VITALS: BP 181/112; PULSE 88; RESP 18; TEMP 96.9; O2SAT 98
[2017-03-13] MEDS: METOPROLOL TARTRATE 25 MG TAB PO SCH ×2 (09:53→20:37)
[2017-03-13] MEDS: LOXAPINE 5 MG CAP PO SCH ×2 (09:53→20:37)
[2017-03-13] MEDS: NIFEdipine 60 MG SUSTAINED RELEASE TAB PO SCH (09:54)
[2017-03-13] MEDS: LISINOPRIL 10 MG TAB PO SCH (09:54)
[2017-03-13] MEDS: THIAMINE HCL 100 MG TAB PO SCH (09:54)
[2017-03-13] MEDS: clonazePAM 0.5 MG TAB PO SCH ×2 (09:54→20:37)
[2017-03-13] MEDS: ASPIRIN EC 81 MG TABEC PO SCH (09:54)
--- NOTE | 2017-03-13 10:08 | HHI.PYPN ---
Subjective Remarks Patient seen and examined with counselor and nurse. Chart reviewed. Case discussed with nursing staff reports the patient had some confusion overnight. On my examination today, the patient is oriented 3. He is able to spell the word world forward but struggles with spelling it backward. He does seem fairly appropriate in conversation, although he remains internally preoccupied. Remains somewhat discharge focused. Sleep reportedly poor per nursing staff, but patient did not receive Ambien PRN overnight. No side effects from medications. No physical complaints. Patient does not report any symptoms of hypertensive urgency/emergency. Review of Systems Except as stated in HPI: all other systems reviewed are Neg Objective Alert: Yes [place]: Person, Place Mood: Calm Affect: Blunted (remains somewhat blunted) Memory Intact: Comment (not assessed) Hallucinations: Other (appears a little internally preoccupied) Delusions: Yes Delusion Type: Paranoid Suicidal: Ideation (no SI) Homicidal: Ideation (no HI) Insight/Judgment Poor Remarks No hand tremor, no dystonia, no dyskinesia noted. Thought process perhaps a little more linear today. Speech more relevant. Labs Labs reviewed. Vitals/IOs Vital Signs Date Time Temp Pulse Resp B/P Pulse Ox O2 Delivery O2 Flow Rate FiO2 03/13/17 04:45 96.9 88 18 181/112 98 Vital signs reviewed. Elevated blood pressures noted. Hospitalist adjusting antihypertensives. Assessment & Plan Problem List: (1) Schizoaffective disorder, bipolar type ICD Code: F25.0 Assessment & Plan Titrate loxapine to 10 mg 3 times daily to target psychotic symptoms. Utilize Ambien as needed for sleep. I will go ahead and titrate patient's clonidine when necessary to 0.2 mg per dose, and the hospitalist continues to follow for hypertension. Continue to monitor on the inpatient unit. Continue other medications and care as ordered. Justification for Cont. Inpt. Impairment in self-care. Medication changes and process. High risk for decompensation in a less restrictive environment. Discharge Planning Placement. We will need to get patient's blood pressure issues under better control before discharge. Request HC Surrog/Guard Advoc?: No Lee Stanley MD Mar 13, 2017 10:08
[2017-03-13] MEDS ORDERED: cloNIDine HCL 0.2 MG TAB PO PRN (11:00)
[2017-03-13 11:30] VITALS: BP 80/58; PULSE 66
[2017-03-13] MEDS ORDERED: NIFEdipine 30 MG SUSTAINED RELEASE TAB PO ONE (11:30)
[2017-03-13 11:33] VITALS: BP 150/84; PULSE 89; RESP 17; O2SAT 98
[2017-03-13] MEDS ORDERED: LOXAPINE 5 MG CAP PO SCH (13:00)
[2017-03-13 13:32] VITALS: BP 113/74; RESP 17; O2SAT 98
--- NOTE | 2017-03-13 15:36 | HHI.PR ---
Subjective Remarks Follow up HTN. Patient BP has been up and down. RN states he dropped this afternoon at 11am, and did not receive the extra dose of Procardia. She is unsure if he was agitated over night to know if that cause his 6 am elevated pressure. Patient is sitting in chair and denies any chest pain, or sob. He does not provide much information. Objective Vitals Vital Signs Date Time Temp Pulse Resp B/P Pulse Ox O2 Delivery O2 Flow Rate FiO2 03/13/17 13:32 17 113/74 98 03/13/17 11:33 89 17 150/84 98 03/13/17 11:30 66 80/58 03/13/17 04:45 96.9 88 18 181/112 98 03/13/17 04:24 180/110 03/12/17 20:26 107 151/94 03/12/17 18:51 97.8 134 18 152/117 98 03/12/17 15:25 97.9 103 17 166/95 98 Result Diagram: 03/12/17 0642 03/12/17 0642 Objective Remarks GENERAL: Alert, NAD. SKIN: Warm and dry. HEAD: Normocephalic. EYES: No scleral icterus. No injection or drainage. NECK: Supple, trachea midline. No JVD or lymphadenopathy. CARDIOVASCULAR: Regular rate and rhythm without murmurs, gallops, or rubs. RESPIRATORY: Breath sounds equal bilaterally. No accessory muscle use. GASTROINTESTINAL: Abdomen soft, non-tender, nondistended. MUSCULOSKELETAL: No cyanosis, or edema. Procedures none Medications and IVs Current Medications Medications (Trade) Dose Ordered Sig/Mesha Route Start Time Stop Time Status Last Admin (Ativan Inj) 1 mg Q6H PRN IM 01/17/17 22:00 03/02/17 07:49 (Tylenol) 650 mg Q4H PRN PO 01/18/17 11:15 (Milk Of Magnesia Liq) 30 ml DAILY PRN PO 01/18/17 11:15 (Mag-Al Plus Susp Liq) 30 ml Q6H PRN PO 01/18/17 11:15 (Ecotrin Ec) 81 mg DAILY PO 01/19/17 09:00 03/13/17 09:54 (Lipitor) 20 mg HS PO 01/18/17 21:00 03/12/17 21:08 (Lopressor) 75 mg BID PO 01/18/17 21:00 03/13/17 09:53 (Vitamin B1) 100 mg DAILY PO 01/18/17 14:15 03/13/17 09:54 (KlonoPIN) 0.5 mg Q12HR PO 01/30/17 21:00 03/13/17 09:54 (Ativan) 1 mg Q6H PRN PO 02/21/17 22:30 03/07/17 12:13 (Cogentin) 1 mg Q12HR PRN PO 03/04/17 13:30 (Cogentin Inj) 1 mg Q12HR PRN IM 03/04/17 13:30 (Ambien) 5 mg HS PRN PO 03/06/17 14:00 03/09/17 21:08 (Loxitane) 20 mg BID PO 03/08/17 21:00 03/13/17 09:53 (Prinivil) 10 mg DAILY PO 03/12/17 09:00 03/13/17 09:54 (Catapres) 0.2 mg Q8HR PRN PO 03/13/17 11:00 (Loxitane) 20 mg DAILY@13 PO 03/13/17 13:00 03/13/17 13:00 (Procardia Xl) 60 mg DAILY PO 03/14/17 09:00 A/P Problem List: (1) Schizoaffective disorder, bipolar type ICD Code: F25.0 Status: Chronic (2) Tobacco abuse ICD Code: Z72.0 Status: Chronic (3) Hypertension ICD Code: I10 Status: Chronic (4) Atrial fibrillation ICD Code: I48.91 Status: Acute (5) Acute kidney injury ICD Code: N17.9 Status: Acute Assessment and Plan 66-year-old male with past medical history of hypertension, atrial fibrillation , depression, schizophrenia, anxiety and HLD who is an inpatient at psychiatric facility and hospitalist services have been consulted for medical management. Schizophrenia - Management per psychiatric team Hypertension - Cont Nifedipine 60 mg daily, and Lisinopril 10mg Qday. Elevated pressures may be due to agitation - Continue with metoprolol 75 mg twice a day - Goal BP < 150/90. -Cont to monitor Vitals signs A. fib, rate controlled - Continue Aspirin 81mg Qday. - Continue Metoprolol 75mg BID for rate control. - [id number] score 3, patient will need to discuss post hospitalization regarding anti-coagulation with Warfarin or NOACs such as Apixaban. Acute kidney injury - Creatinine was 1.55 on 02/26/2017. Improved to 1.08 on 03/05/2017. - Avoid nephrotoxins including NSAIDs. Full code. Ambulation. Chari Encinas Mar 13, 2017 15:36
[2017-03-13] MEDS: ATORVASTATIN 20 MG TAB PO SCH (20:37)
[2017-03-14 04:08] VITALS: BP 159/91; PULSE 109; RESP 18; TEMP 96.9; O2SAT 95
[2017-03-14 05:38] VITALS: BP 140/87; PULSE 100; RESP 16
[2017-03-14 06:15] VITALS: PULSE 109; RESP 18; TEMP 96.9; O2SAT 95
[2017-03-14] MEDS ORDERED: NIFEdipine 90 MG SUSTAINED RELEASE TAB PO SCH (09:00)
[2017-03-14] MEDS: NIFEdipine 60 MG SUSTAINED RELEASE TAB PO SCH (09:44)
[2017-03-14] MEDS: LOXAPINE 5 MG CAP PO SCH ×2 (09:44→21:23)
[2017-03-14] MEDS: clonazePAM 0.5 MG TAB PO SCH ×2 (09:44→21:22)
[2017-03-14] MEDS: THIAMINE HCL 100 MG TAB PO SCH (09:45)
[2017-03-14] MEDS: METOPROLOL TARTRATE 25 MG TAB PO SCH ×2 (09:45→21:23)
[2017-03-14] MEDS: LISINOPRIL 10 MG TAB PO SCH (09:45)
[2017-03-14] MEDS: ASPIRIN EC 81 MG TABEC PO SCH (09:45)
--- NOTE | 2017-03-14 11:52 | HHI.PYPN ---
Subjective Remarks Patient seen and examined with nurse. Chart reviewed. Case discussed with nursing staff who reports that the patient has been somewhat confused today. For example at breakfast he reportedly stared for a long time at his tray and had to be prompted to eat his breakfast. BPs are a little better controlled. Also notes patient's knees buckled and he had to be lowered to ground by staff overnight. For me today, patient is sitting calmly in the day area. He does seem a little bit slowed but remains oriented. No delfina psychotic material. Denies any chest pain, shortness of breath or other symptoms of hypertensive urgency/emergency. No other physical complaints. Denies side effects from medications. Review of Systems ROS Limitations: Poor Historian Except as stated in HPI: all other systems reviewed are Neg Objective Alert: Yes [place]: Person, Place, Date Mood: Calm Affect: Blunted Memory Intact: Comment (not formally assessed today) Hallucinations: Other (no AVH) Delusions: No Delusion Type: Other (no delusions elicited) Suicidal: Ideation (no SI voiced) Homicidal: Ideation (no HI voiced) Insight/Judgment Poor Remarks No motoric abnormalities noted. Somewhat psychomotor slowed. Thought process a little slowed but seems more organized versus earlier encounters. Labs Labs reviewed. Vitals/IOs Vital Signs Date Time Temp Pulse Resp B/P Pulse Ox O2 Delivery O2 Flow Rate FiO2 03/14/17 06:15 96.9 109 18 95 Assessment & Plan Problem List: (1) Schizoaffective disorder, bipolar type ICD Code: F25.0 Assessment & Plan Patient does seem a little slowed down today. I am concerned that the loxapine dose is too high, although he does seem to be deriving benefit from the higher dose. I will taper loxapine back to 20/10/20mg. Appreciate ongoing hospitalist input regarding the blood pressures which seem a little better control today. Continue to monitor on the inpatient unit. Continue other medications and care as ordered. Justification for Cont. Inpt. High risk for decompensation in a less restrictive environment. Medication changes in process. Discharge Planning Placement once stabilized. Request HC Surrog/Guard Advoc?: No Lee Stanley MD Mar 14, 2017 11:52
[2017-03-14] MEDS ORDERED: LOXAPINE 5 MG CAP PO SCH (13:00)
[2017-03-14 16:48] VITALS: BP 144/87; PULSE 101; RESP 18; TEMP 97.1; O2SAT 98
[2017-03-14 19:45] VITALS: BP 148/96; PULSE 99; RESP 17; TEMP 98.8; O2SAT 97
[2017-03-14] MEDS: ATORVASTATIN 20 MG TAB PO SCH (21:22)
[2017-03-14] MEDS: ZOLPIDEM TARTRATE 5 MG TAB PO PRN (21:26)
[2017-03-15 05:39] VITALS: BP 162/98; PULSE 84; RESP 18; TEMP 97.4; O2SAT 95
[2017-03-15] MEDS: ASPIRIN EC 81 MG TABEC PO SCH (09:21)
[2017-03-15] MEDS: clonazePAM 0.5 MG TAB PO SCH ×2 (09:21→21:20)
[2017-03-15] MEDS: LOXAPINE 5 MG CAP PO SCH ×2 (09:21→21:20)
[2017-03-15] MEDS: LISINOPRIL 10 MG TAB PO SCH (09:21)
[2017-03-15] MEDS: METOPROLOL TARTRATE 25 MG TAB PO SCH ×2 (09:22→21:20)
[2017-03-15] MEDS: THIAMINE HCL 100 MG TAB PO SCH (09:22)
[2017-03-15] MEDS: NIFEdipine 60 MG SUSTAINED RELEASE TAB PO SCH (09:22)
--- NOTE | 2017-03-15 10:28 | HHI.PYPN ---
Subjective Remarks Patient seen and examined with counselor and nurse. Chart reviewed. Case discussed with nursing staff. On my examination today, the patient remains fairly subdued even after I tapered his loxapine dosage. He is calm and coherent, answering questions appropriately. No SI or HI. We discuss plan for discharge to [facility] and he is agreeable. Besides some possible mild overmedication , no side effects. No physical complaints. Review of Systems ROS Limitations: Poor Historian Except as stated in HPI: all other systems reviewed are Neg Objective Alert: Yes [place]: Person, Place (at least) Mood: Calm Affect: Blunted (tending toward flat) Memory Intact: Comment (not formally assessed today) Hallucinations: Other (No AVH) Delusions: No Delusion Type: Other (No delusional material) Suicidal: Ideation (No SI) Homicidal: Ideation (No HI) Insight/Judgment Poor Remarks No motor abnormalities noted. Grooming and hygiene poor. Thought process slowed but seems generally linear. Labs Labs reviewed. Vitals/IOs Vital Signs Date Time Temp Pulse Resp B/P Pulse Ox O2 Delivery O2 Flow Rate FiO2 03/15/17 05:39 97.4 84 18 162/98 95 Assessment & Plan Problem List: (1) Schizoaffective disorder, bipolar type ICD Code: F25.0 Assessment & Plan Patient continues to present as a little overmedicated; taper loxapine to 20mg BID, which he previously tolerated well. I have asked hospitalist to return to provide discharge recs regarding management of patient's medical conditions in anticipation of possible discharge after the weekend. Continue to monitor on the inpatient unit. Continue other medications and care as ordered. Justification for Cont. Inpt. Medication changes. Discharge Planning Possible discharge to [facility] after the weekend. Request HC Surrog/Guard Advoc?: No Lee Stanley MD Mar 15, 2017 10:28
[2017-03-15 17:22] VITALS: BP 126/84; PULSE 104; RESP 18; TEMP 97.7; O2SAT 96
[2017-03-15] MEDS: ATORVASTATIN 20 MG TAB PO SCH (21:20)
[2017-03-15] MEDS: ZOLPIDEM TARTRATE 5 MG TAB PO PRN (21:21)
[2017-03-16 06:06] VITALS: BP 156/80; PULSE 70; RESP 16; TEMP 98; O2SAT 98
[2017-03-16] MEDS: ASPIRIN EC 81 MG TABEC PO SCH (08:34)
[2017-03-16] MEDS: METOPROLOL TARTRATE 25 MG TAB PO SCH ×2 (08:35→20:43)
[2017-03-16] MEDS: clonazePAM 0.5 MG TAB PO SCH ×2 (08:35→20:44)
[2017-03-16] MEDS: LOXAPINE 5 MG CAP PO SCH ×2 (08:38→20:42)
[2017-03-16] MEDS: LISINOPRIL 10 MG TAB PO SCH (08:38)
[2017-03-16] MEDS: NIFEdipine 60 MG SUSTAINED RELEASE TAB PO SCH (08:38)
[2017-03-16] MEDS: THIAMINE HCL 100 MG TAB PO SCH (08:39)
--- NOTE | 2017-03-16 14:32 | HHI.PR ---
Subjective Remarks Follow-up visit HTN, A. fib. Patient seen and examined today. Reports he is doing well. He is rocking himself in the chair. As per staff, patient has been upset since yesterday afternoon when he was told that he is going home because he is liking the other lady patient in the unit. Patient denies pain and discomfort. Denies SOB/ dyspnea. Denies chest pain, palpitations, headaches, dizziness. Denies fevers, chills, n/v/d. Denies hematuria, dysuria. Objective Vitals Vital Signs Date Time Temp Pulse Resp B/P Pulse Ox O2 Delivery O2 Flow Rate FiO2 03/16/17 06:06 98.0 70 16 156/80 98 03/15/17 17:22 97.7 104 18 126/84 96 Result Diagram: 03/12/17 0642 03/12/1742 Imaging Last Impressions Lower Extremity Ultrasound 02/26/17 0000 Signed Impressions: Service Date/Time: Sunday, February 26, 2017 21:12 - CONCLUSION: 1. No DVT. 2. Subcutaneous edema involving the calves bilaterally. Josué Colon Jr., MD Abdomen Ultrasound 02/20/17 0000 Signed Impressions: Service Date/Time: Monday, February 20, 2017 12:19 - CONCLUSION: Very limited evaluation because of lack of patient cooperation. Justin Guzman MD Chest X-Ray 01/20/17 0000 Signed Impressions: Service Date/Time: Friday, January 20, 2017 21:49 - CONCLUSION: The lungs are clear. Josué Henning MD Objective Remarks GENERAL: This is a well-nourished, well-developed patient, in no apparent distress. HEENT: Normocephalic. Pupils equal round and reactive. Nose without bleeding. Airway patent. NECK: Trachea midline. No JVD. Supple. CARDIOVASCULAR: Regular rate and rhythm without murmurs, gallops, or rubs. RESPIRATORY: Clear to auscultation. Breath sounds equal bilaterally. No wheezes , rales, or rhonchi. GASTROINTESTINAL: Abdomen soft, non-tender, nondistended. Bowel Sounds normoactive x4. MUSCULOSKELETAL: Extremities without clubbing, cyanosis, bilateral lower extremity +1 edema. NEUROLOGICAL: Awake and alert. Flat affect. No focal neuro deficit. MANUEL. Normal speech. Procedures none A/P Problem List: (1) Schizoaffective disorder, bipolar type ICD Code: F25.0 Status: Chronic (2) Tobacco abuse ICD Code: Z72.0 Status: Chronic (3) Hypertension ICD Code: I10 Status: Chronic (4) Atrial fibrillation ICD Code: I48.91 Status: Acute (5) Acute kidney injury ICD Code: N17.9 Status: Acute Assessment and Plan 66-year-old male with past medical history of hypertension, atrial fibrillation , depression, schizophrenia, anxiety and HLD who is an inpatient at psychiatric facility and hospitalist services have been consulted for medical management. Schizophrenia - Management per psychiatric team HTN A. fib, rate controlled - Continue with metoprolol 75 mg twice a day, Nifedipine 60 mg daily, Lisinopril 10mg daily. Goal BP < 150/90. - ASA 81 mg - [id number] score 3, patient will need to discuss post hospitalization regarding anti-coagulation with Warfarin or NOACs such as Apixaban. However, pt. has been noncompliant prior to hospitalization. If he is going to be in a controlled environment, he may benefit with anticoagulants. Will refer to PCP. Bilateral lower extremity edema - Bilateral YADIRA hose as tolerated - Leg elevation at rest Acute kidney injury, improving - Creatinine 1.07 --> 1.22 - Avoid nephrotoxins including NSAIDs. DVT prophylaxis: Patient ambulatory Discussed with patient, nursing, Dr. Mainor Chilel from Hospitalist standpoint. We will sign off. Reconsult as needed. Shaji Sheridan Mar 16, 2017 14:32
--- NOTE | 2017-03-16 16:07 | HHI.PYPN ---
Subjective Remarks Patient was seen and case discussed with nursing. Patient is pleasant and cooperative with exam. Appears flat and hypoverbal. When we spoke about his [facility] next [facility] appeared apathetic. Remains largely seclusive to self but has made friends with Rhonda ponce hand at times per nursing Objective Alert: Yes [place]: Person, Place (at least) Mood: Calm Affect: Blunted (trending toward flat) Memory Intact: Comment (not formally assessed today) Hallucinations: Other (No AVH) Delusions: No Delusion Type: Other (No delusional material) Suicidal: Ideation (No SI) Homicidal: Ideation (No HI) Insight/Judgment poor Vitals/IOs Vital Signs Date Time Temp Pulse Resp B/P Pulse Ox O2 Delivery O2 Flow Rate FiO2 03/16/17 06:06 98.0 70 16 156/80 98 Assessment & Plan Problem List: (1) Schizoaffective disorder, bipolar type ICD Code: F25.0 Assessment & Plan Continue current treatment plan Justification for Cont. Inpt. Patient will decompensate in a less restrictive setting Request HC Surrog/Guard Advoc?: No Kurt Garcia DO Mar 16, 2017 16:07
[2017-03-16 18:38] VITALS: BP 151/84; PULSE 109; RESP 16; TEMP 97; O2SAT 98
[2017-03-16] MEDS: ATORVASTATIN 20 MG TAB PO SCH (20:44)
[2017-03-17 06:06] VITALS: BP 124/66; PULSE 69; RESP 18; TEMP 97.9; O2SAT 97
[2017-03-17] MEDS: ASPIRIN EC 81 MG TABEC PO SCH (08:49)
[2017-03-17] MEDS: clonazePAM 0.5 MG TAB PO SCH ×2 (08:49→20:57)
[2017-03-17] MEDS: LOXAPINE 5 MG CAP PO SCH ×2 (08:50→20:58)
[2017-03-17] MEDS: NIFEdipine 60 MG SUSTAINED RELEASE TAB PO SCH (08:51)
[2017-03-17] MEDS: METOPROLOL TARTRATE 25 MG TAB PO SCH ×2 (08:51→20:58)
[2017-03-17] MEDS: LISINOPRIL 10 MG TAB PO SCH (08:51)
[2017-03-17] MEDS: THIAMINE HCL 100 MG TAB PO SCH (08:52)
[2017-03-17 11:16] VITALS: BP 113/71; PULSE 86; RESP 16
--- NOTE | 2017-03-17 16:47 | HHI.PYPN ---
Subjective Remarks Patient was seen and case discussed with nursing. Patient remains withdrawn and flat. Is interacting well with others especially Rhonda. Compliant with his medications. Objective Alert: Yes [place]: Person, Place (at least) Mood: Calm Affect: Blunted (trending toward flat) Memory Intact: Comment (not formally assessed today) Hallucinations: Other (No AVH) Delusions: No Delusion Type: Other (No delusional material) Suicidal: Ideation (No SI) Homicidal: Ideation (No HI) Insight/Judgment Poor Vitals/IOs Vital Signs Date Time Temp Pulse Resp B/P Pulse Ox O2 Delivery O2 Flow Rate FiO2 03/17/17 11:16 86 16 113/71 03/17/17 06:06 97.9 97 Assessment & Plan Problem List: (1) Schizoaffective disorder, bipolar type ICD Code: F25.0 Assessment & Plan Continue current treatment plan Justification for Cont. Inpt. Patient will decompensate and less restrictive setting Request HC Surrog/Guard Advoc?: No Kurt Garcia DO Mar 17, 2017 16:47
[2017-03-17 18:00] VITALS: BP 154/87; PULSE 88; RESP 18; TEMP 97.2; O2SAT 98
[2017-03-17] MEDS: ATORVASTATIN 20 MG TAB PO SCH (20:57)
[2017-03-18 06:07] VITALS: BP 146/94; PULSE 95; RESP 18; TEMP 97; O2SAT 95
[2017-03-18] MEDS: NIFEdipine 60 MG SUSTAINED RELEASE TAB PO SCH (08:22)
[2017-03-18] MEDS: METOPROLOL TARTRATE 25 MG TAB PO SCH (08:22)
[2017-03-18] MEDS: THIAMINE HCL 100 MG TAB PO SCH (08:22)
[2017-03-18] MEDS: LOXAPINE 5 MG CAP PO SCH (08:22)
[2017-03-18] MEDS: ASPIRIN EC 81 MG TABEC PO SCH (08:22)
[2017-03-18] MEDS: clonazePAM 0.5 MG TAB PO SCH (08:22)
[2017-03-18] MEDS: LISINOPRIL 10 MG TAB PO SCH (08:22)
[2017-03-18] MEDS ORDERED: METO25TA3 PO (11:56)
[2017-03-18] MEDS ORDERED: ATOR20TA15 PO (11:56)
[2017-03-18] MEDS ORDERED: CLON.5 PO (11:56)
[2017-03-18] MEDS ORDERED: LOXA5CAP PO (11:56)
[2017-03-18] MEDS ORDERED: ASPI-99 PO (11:56)
[2017-03-18] MEDS ORDERED: NIFE60TA8 PO (11:56)
[2017-03-18] MEDS ORDERED: LISI10TA3 PO (11:56)
--- NOTE | 2017-03-18 11:56 | HHI.DS ---
Psychiatry Discharge Summary Inpatient Psychiatric care?: Yes Advance Directive: No Reason Not Provided: patient non verbal Mental Health AdvanceDirective: No Health Care Proxy: No Admission Admission Date Jan 17, 2017 at 20:45 Admission Diagnosis: (1) Schizoaffective disorder, bipolar type ICD Code: F25.0 Brief History Patient is a 66-year-old white female well-known to us from multiple hospitalizations comes here under [facility] act signed by Dr. Wilver Rogers on 01/17/17 at 3:15 PM this certificate reviewed, essentially stating paranoid schizophrenia patient is acutely paranoid psychotic preoccupied with imaginary focus. This consultation occurred under visit [id number] visit from 01/16/17 to 01/17/17 with a diagnosis of hepatic encephalopathy. Patient was medically cleared yesterday evening and transferred to this unit. Of interest the patient was hospitalized here 12/27/16 to 01/02/17 under visit [id number] and released to [facility] he left there within 24 hours. Patient was readmitted to [facility] 01/03/17 through 01/09/17 under visit [id number] at that time he was also under my care and was reluctantly allowed to return home with home health care and assistance by neighbors. It appears this was unsuccessful leading to his marked deterioration in his physical health and the medical admission as mentioned above. At the present time patient sitting in a somewhat agitated state in his room nurse Roseanne and counselor Kailey present throughout session. Patient somewhat fidgety with very poor eye contact. He did recognize me from prior contact denies voices or visions of suicidality. He appears to have lost weight and is struggling somewhat with internal stimuli. He now states would be willing to go to a [facility]. He is vague about compliance with medication, vague about it is cooperation with the home health care referral. at the present time patient does meet criteria under the [facility] act for involuntary psychiatric hospitalization thus I will do first opinion requests second opinion. Though I do feel at this time he has capacity to sign for his medications. We have hospitalists consulting with us. Will recheck CMP and CBC with differential tomorrow to monitor patient's hepatic status Tobacco Use In Past 30 Days: 5 or More Cigarettes/Day Alcohol Use: Never Hospital Course Patient was admitted to a locked, inpatient psychiatric unit. A general medical consultation was obtained. Appropriate precautions were in place throughout patient's hospital stay. Patient was seen and examined on the unit by psychiatry and also visited by counselor. Psychotropic medications were adjusted. The patient responded fairly well to loxapine for his psychosis. Patient had improvement in his presenting psychiatric symptomatology during the course of his hospital stay. There was no evidence of any suicidality or homicidality on the inpatient psychiatric unit. [facility] psychiatric hospitalization was explored as a possibility for this chronically mentally ill patient, but unfortunately the [facility] is no longer accepting patients with [facility] [employer] [facility]. Given the patient's symptomatic improvement on the unit with respect to his psychosis, assisted living placement presented itself is an acceptable alternative, and the counselor has arranged for this. On the day of discharge: Patient seen and examined with nurse. Chart reviewed. Case discussed with nursing staff; no behavioral issues overnight. On my examination today, the patient is calm and cooperative with interview. He denies any suicidal or homicidal ideation, intent or plan. He denies any audiovisual hallucinations. No evident delusional beliefs. Reports that he is sleeping and eating well. Denies side effects from medications. No physical complaints. 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 Patient has maximized benefit from this inpatient psychiatric hospital stay and will be discharged today to assisted living setting with psychiatric follow-up as arranged by counselor. Patient is also to follow-up with primary care. Patient to return to the psychiatric emergency room for any concerning psychiatric symptoms. Results Blood Pressure 146 / 94 Vital Signs Date Time Temp Pulse Resp B/P Pulse Ox O2 Delivery O2 Flow Rate FiO2 03/18/17 06:07 97.0 95 18 146/94 95 Item Value Date Time White Blood Count 7.9 TH/MM3 03/05/17 0720 Hemoglobin 13.1 GM/DL 03/05/17 0720 Platelet Count 137 TH/MM3 L 03/12/17 0642 Sodium Level 143 MEQ/L 03/05/17 0720 Potassium Level 4.1 MEQ/L 03/05/17 0720 Chloride Level 108 MEQ/L H 03/05/17 0720 Carbon Dioxide Level 31.7 MEQ/L 03/05/17 0720 Blood Urea Nitrogen 27 MG/DL H 03/05/17 0720 Creatinine 1.07 MG/DL 03/05/17 0720 Aspartate Amino Transf (AST/SGOT) 20 U/L 02/26/17 0825 Alanine Aminotransferase (ALT/SGPT) 22 U/L 02/26/17 0825 Alkaline Phosphatase 83 U/L 02/26/17 0825 Rheumatoid Factor Screen NEGATIVE 02/21/171844 Anti-Nuclear Antibody Screen NEG 02/21/171844 HIV (1&2) Antibody NEGATIVE 02/21/171844 Hepatitis A IgM Antibody NEGATIVE 02/21/171844 Hepatitis B Surface Antigen NEGATIVE 02/21/171844 Hepatitis B Core IgM Antibody NEGATIVE 02/21/171844 Hepatitis C Antibody NEGATIVE 02/21/171844 Summary of Procedures None done Imaging Last Impressions Lower Extremity Ultrasound 02/26/17 0000 Signed Impressions: Service Date/Time: Sunday, February 26, 2017 21:12 - CONCLUSION: 1. No DVT. 2. Subcutaneous edema involving the calves bilaterally. Josué Colon Jr., MD Abdomen Ultrasound 02/20/17 0000 Signed Impressions: Service Date/Time: Monday, February 20, 2017 12:19 - CONCLUSION: Very limited evaluation because of lack of patient cooperation. Justin Guzman MD Chest X-Ray 01/20/17 0000 Signed Impressions: Service Date/Time: Friday, January 20, 2017 21:49 - CONCLUSION: The lungs are clear. Josué Henning MD Pending results at discharge: No Medications # of Antipsychotic meds at D/C: 1 Approp Antipsych med options 1 - Minimum of three failed multiple trials of monotherapy. 2 - Documented plan to taper to monotherapy due to previous use of multiple meds OR cross-taper in progress at D/C. 3 - Documentation of augmentation of Clozapine. 4 - Justification other than those listed in allowable values 1-3, document here : Discharge Discharge Date: Mar 18, 2017 Discharge Diagnosis: (1) Schizoaffective disorder, bipolar type Diagnosis: Principal (improved versus admission) ICD Code: F25.0 GAF on discharge is 50 Mental Status Exam at Disch Patient is casually dressed. He is fairly well groomed and maintaining basic hygiene. He is awake and alert and oriented to person and hospital at least. No evidence of delirium. No abnormal motor movements noted. Speech is somewhat slow but otherwise within normal limits for tone and volume. Focus and concentration fair. Memory grossly intact on clinical exam. No low mood or elevated mood reported, and affect somewhat blunted. Thought process generally linear. No loosening of associations. No delusional material elicited. Denies audiovisual hallucinations. Denies suicidal or homicidal ideation. Insight and judgment are chronically poor. Pt Condition on Discharge: Stable Discharge Disposition: ACLF/WIL Discharge Instructions Diet Instructions: Heart Healthy Diet Activities you can perform: Weight Bearing as Lisa Scheduled Appointment: as per counselor's notes New Medications: Aspirin DR (Adult Aspirin EC Low Strength) 81 Mg Tabec 81 MG PO DAILY Health Days 15 Ref 1 TAB Atorvastatin (Atorvastatin) 20 Mg Tab 20 MG PO HS Cholesterol Management Days 15 Ref 1 TAB Clonazepam (Klonopin) 0.5 Mg Tab 0.5 MG PO Q12HR Mental Health Days 15 Ref 1 TAB Lisinopril (Lisinopril) 10 Mg Tab 10 MG PO DAILY Blood Pressure Management Days 15 Ref 1 TAB Loxapine (Loxapine) 5 Mg Cap 20 MG PO BID Mental Health Days 15 Ref 1 CAP Metoprolol Tartrate (Metoprolol Tartrate) 25 Mg Tab 75 MG PO BID Blood Pressure Management Days 15 Ref 1 TAB Nifedipine ER 24 HR (Nifedipine ER 24 HR) 60 Mg Tab 60 MG PO DAILY Blood Pressure Management Days 15 Ref 1 TAB Discontinued Medications: Aripiprazole (Aripiprazole) 10 Mg Tab 10 MG PO DAILY Control Mood Swing #30 TAB Aspirin (Aspirin) 81 Mg Tabdr 81 MG PO DAILY #30 TAB Atorvastatin (Lipitor) 20 Mg Tab 20 MG PO HS health #30 Ref 0 TAB Atorvastatin (Atorvastatin) 20 Mg Tab 20 MG PO HS health #30 Ref 0 TAB Benztropine (Benztropine) 1 Mg Tab 1 MG PO DAILY health #30 Ref 0 TAB Haloperidol (Haloperidol) 10 Mg Tab 10 MG PO BID health #60 Ref 0 TAB Metoprolol Tartrate (Metoprolol Tartrate) 25 Mg Tab 75 MG PO BID Blood Pressure Management #60 TAB Nifedipine ER 24 HR (Nifedipine ER 24 HR) 30 Mg Tab 30 MG PO DAILY health #30 Ref 0 TAB Propranolol (Propranolol) 10 Mg Tab 10 MG PO Q8H Blood Pressure Management #90 TAB Trazodone (Trazodone) 50 Mg Tab 50 MG PO HS PRN INSOMNIA #15 Ref 0 TAB Trazodone (Trazodone) 50 Mg Tab 100 MG PO HS Control Mood Swing #30 TAB Discharge Time <= 30 minutes Discharge/Advance Care Plan Health Problems: (1) Schizoaffective disorder, bipolar type Goals to promote your health * To prevent worsening of your condition and complications * To maintain your health at the optimal level Directions to meet your goals Take your medications as prescribed Follow your dietary instruction Follow activity as directed Keep your appointments as scheduled Take your immunizations and boosters as scheduled If your symptoms worsen call your PCP, if no PCP go to Urgent Care Center or Emergency Room For 22/04 questions related to your inpatient stay or results of tests pending at discharge, please contact Dr. Lee Stanley at Smoking is Dangerous to Your Health. Avoid second hand smoking Lee Stanley MD Mar 18, 2017 11:56
== END 2017-03-18 13:30 | DRG 885 ==
LOC: H260 20:45 → H250 01-24 06:23 → H260 02-12 17:04 → H250 02-21 19:39 → H4EA 02-26 10:30 → H270 03-02 11:10
PROVIDERS: ADMIT Psychiatry & Neurology Psychiatry; ATTEND Psychiatry & Neurology Psychiatry
DX: F25.0 Schizoaffective disorder, bipolar type (principal); N17.9 Acute kidney failure, unspecified; D69.59 Other secondary thrombocytopenia; I48.91 Unspecified atrial fibrillation; R74.0 Nonspecific elevation of levels of transaminase and lactic acid dehydrogenase [LDH]; R63.0 Anorexia; I10 Essential (primary) hypertension; T43.95XA Adverse effect of unspecified psychotropic drug, initial encounter; R63.4 Abnormal weight loss; F41.9 Anxiety disorder, unspecified; E78.5 Hyperlipidemia, unspecified; F41.8 Other specified anxiety disorders; Y92.239 Unspecified place in hospital as the place of occurrence of the external cause; Z72.0 Tobacco use; E78.00 Pure hypercholesterolemia, unspecified; Z91.14 Patient's other noncompliance with medication regimen; Z91.19 Patient's noncompliance with other medical treatment and regimen
CPT/HCPCS: 71020; 76700; 80048; 80053; 80074; 82248; 82550; 82565; 82607; 84443; 84520; 85025; 85027; 85049; 86038; 86430; 86703; 93970; J2060

== ENCOUNTER 2017-11-23 15:18 | Inpatient (IN) | payer OTHER, MEDICARE ==
[2017-11-23] VITALS (11 sets, daily range): BP systolic 121–205; BP diastolic 70–126; PULSE 73–185; RESP 16–26; TEMP 98.2–98.4; O2SAT 68–100
[~2017-11-23] VITALS: Ht 167.6 cm; Wt 65.1 kg
[~2017-11-23 15:18] MED LIST changes: -ARIP1TAB12 PO; -ARIP1TAB13 PO; +ASPI1TAB56 PO; -ASPI1TAB69 PO; -BENZ1TAB PO; +CLON.5 PO; -HALO10TA PO; -LIPI20TA PO; +LISI10TA3 PO; +LOXA5CAP PO; -METO-309 PO; -NIFE30TA8 PO; +NIFE60TA8 PO; -PROP10TA6 PO; -TRAZ50TA12 PO
[2017-11-23] MEDS ORDERED: SODIUM CHLOR 0.9% 1000 ML INJ 1,000 ML IV SCH (15:55)
[2017-11-23] MEDS ORDERED: DILTIAZEM HCL 25 MG/5 ML VIAL IV PUSH ONE (16:00)
[2017-11-23] MEDS ORDERED: SODIUM CHLORIDE 0.9% FLUSH 10 ML FLUSH IV FLUSH PRN ×2 (16:00→21:00)
[2017-11-23] MEDS ORDERED: LORazepam 2 MG/ML VIAL ONE (16:04)
[2017-11-23] MEDS ORDERED: METO-426 PO ×2 (16:12)
[2017-11-23] MEDS ORDERED: LOXA25CA PO ×2 (16:12)
[2017-11-23] MEDS ORDERED: LORazepam 2 MG/ML VIAL IV PUSH ONE ×2 (16:15→16:30)
[2017-11-23] MEDS ORDERED: RESP: ALBUTEROL 2.5 MG/IPRATROPIUM 0.5 MG NEB (SCH) NEB ONE (16:15)
--- NOTE | 2017-11-23 16:29 | PD ---
HPI Chief Complaint: Respiratory Distress Time Seen by Provider: 15:51 Travel History International Travel<30 days: No Contact w/Intl Traveler<30days: No Traveled to known affect area: No History of Present Illness HPI Patient is a 67-year-old male presents emergency department for evaluation of altered mental status tachycardia. Patient apparently has a history of schizophrenia and lives in [facility] here in town, apparently a manager foreign tracked him down for failure to appear in court arrested him and brought him to the curb. Unnoticed and the patient was altered he called law enforcement to transfer the patient here. On arrival the patient is tachycardic and tachypneic, he is reluctant or unable to give any of his history. Discussed with [facility] the patient is not under hospice care, he is admitted for schizophrenia, they had no other significant history to add. PFSH Past Medical History Asthma: No Atrial Fibrillation: Yes Autoimmune Disease: No Blood Disorders: No Bipolar Disorder: Yes Anxiety: Yes Depression: Yes Heart Rhythm Problems: Yes (a fib) High Cholesterol: Yes Chemotherapy: No Chest Pain: No Congestive Heart Failure: No COPD: Yes Cerebrovascular Accident: No Diminished Hearing: No Endocrine: No Glaucoma: No Genitourinary: No Hypertension: Yes Immune Disorder: No Musculoskeletal: No Neurologic: Yes (hepatic encepalopathy) Psychiatric: Yes (pt has been diagnoised with Schizoaffective DO) Reproductive: No Respiratory: Yes Immunizations Current: No Migraines: No Myocardial Infarction: No Radiation Therapy: No Schizophrenia: Yes (SCHIZO AFFECTIVE DISORDER) Sickle Cell Disease: No Sleep Apnea: No Thyroid Disease: No ?: Not Past Surgical History Abdominal Surgery: No AICD: No Arteriovenous Shunt: No Cardiac Surgery: No Ear Surgery: No Endocrine Surgery: No Eye Surgery: Yes (r. eye laser surg.) Genitourinary Surgery: No Gynecologic Surgery: No Insulin Pump: No Joint Replacement: No Neurologic Surgery: No Oral Surgery: No Pacemaker: Yes Thoracic Surgery: No Other Surgery: Yes (UNKNOWN SEE JPOD NOTES) Social History Alcohol Use: No Tobacco Use: Yes (3 PACKS A DAY ) Substance Use: No (non verbal) Allergies-Medications (Allergen,Severity, Reaction): Coded Allergies: No Known Allergies (Verified , 01/16/17) Per pt. Reported Meds & Prescriptions Reported Meds & Active Scripts Active Lisinopril 10 Mg Tab 10 Mg PO DAILY 15 Days Adult Aspirin EC Low Strength (Aspirin) 81 Mg Tabec 81 Mg PO DAILY 15 Days Reported Metoprolol Tartrate 75 Mg Tab 75 Mg PO BID Loxapine (Loxapine Succinate) 25 Mg Cap 25 Mg PO BID Review of Systems Except as stated in HPI: all other systems reviewed are Neg Physical Exam Narrative GENERAL: Well-developed, unkempt, bearded, tachycardic and tachypneic. SKIN: Focused skin assessment warm/dry. HEAD: Atraumatic. Normocephalic. EYES: Pupils equal and round. No scleral icterus. No injection or drainage. ENT: No nasal bleeding or discharge. Mucous membranes pink and moist. NECK: Trachea midline. No JVD. CARDIOVASCULAR: Regular rate and rhythm. No murmur appreciated. Irregularly irregular with tachycardia, 2+ bilateral equal pulses in all 4 extremities RESPIRATORY: No accessory muscle use. Clear to auscultation. Breath sounds equal bilaterally. GASTROINTESTINAL: Abdomen soft, non-tender, nondistended. Hepatic and splenic margins not palpable. MUSCULOSKELETAL: No obvious deformities. No clubbing. No cyanosis. No edema. NEUROLOGICAL: Awake and alert. Confused verbal response, will not follow my commands but has purposeful movement in all 4 extremities, eyes opening spontaneously. No obvious cranial nerve deficit. PSYCHIATRIC: Appropriate mood and affect; insight and judgment normal. Data Data Last Documented VS Vital Signs Date Time Temp Pulse Resp B/P (MAP) Pulse Ox O2 Delivery O2 Flow Rate FiO2 11/23/17 17:16 73 18 121/72 (88) 100 Nasal Cannula 6.00 11/23/17 15:44 98.2 Orders Orders Electrocardiogram (11/23/17 15:55) Complete Blood Count With Diff (11/23/17 15:55) Comprehensive Metabolic Panel (11/23/17 15:55) Creatine Kinase (Cpk) (11/23/17 15:55) Prothrombin Time / Inr (Pt) (11/23/17 15:55) Act Partial Throm Time (Ptt) (11/23/17 15:55) Troponin I (11/23/17 15:55) Thyroid Stimulating Hormone (11/23/17 15:55) Urinalysis - C+S If Indicated (11/23/17 15:55) Blood Culture (11/23/17 15:55) Chest, Single Ap (11/23/17 15:55) Ct Brain W/O Iv Contrast(Rout) (11/23/17 15:55) Blood Glucose (11/23/17 15:55) Ecg Monitoring (11/23/17 15:55) Iv Access Insert/Monitor (11/23/17 15:55) Oximetry (11/23/17 15:55) Sodium Chloride 0.9% Flush (Ns Flush) (11/23/17 16:00) Sodium Chlor 0.9% 1000 Ml Inj (Ns 1000 M (11/23/17 15:55) Drug Screen, Random Urine (11/23/17 15:55) Alcohol (Ethanol) (11/23/17 15:55) Tylenol (Acetaminophen) (11/23/17 15:55) Salicylates (Aspirin) (11/23/17 15:55) Diltiazem Inj (Cardizem Inj) (11/23/17 16:00) Lactic Acid (11/23/17 15:55) Blood Gas Venous (Vbg) (11/23/17 15:55) Albuterol-Ipratropium Neb (Duoneb Neb) (11/23/17 16:15) Lorazepam Inj (Ativan Inj) (11/23/17 16:15) Lorazepam Inj (Ativan Inj) (11/23/17 16:04) Restraints Non-Violent CLAUDIA.Q3H (11/23/17 16:20) Urinary Catheter Management CLAUDIA.Q8H (11/23/17 16:20) Ct Pulmonary Angiogram (11/23/17 ) Lorazepam Inj (Ativan Inj) (11/23/17 16:30) Sodium Chlor 0.9% 1000 Ml Inj (Ns 1000 M (11/23/17 17:30) Lactic Acid (11/23/17 18:42) Labs Laboratory Tests Test 11/23/17 15:59 11/23/17 16:18 11/23/17 17:06 11/23/17 17:13 Blood Gas Puncture Site IV Blood Gas Patient Temperature 98.6 Venous Blood pH 7.54 Venous Blood Partial Pressure CO2 24 mmHg Venous Blood Partial Pressure O2 32 mmHg Venous Blood HCO3 21 mmol/L Venous Blood Oxygen Saturation 70 % Venous Blood Oxygen Content 17.0 Vol % Venous Blood Base Excess -1.6 mmol/L Oxygen Delivery Device Non-Rebreathing Mask Blood Gas Liter Flow 15 L/M Blood Gas Inspired Oxygen 100 % White Blood Count 8.1 TH/MM3 Red Blood Count 5.86 MIL/MM3 Hemoglobin 17.7 GM/DL Hematocrit 52.5 % Mean Corpuscular Volume 89.6 FL Mean Corpuscular Hemoglobin 30.2 PG Mean Corpuscular Hemoglobin Concent 33.7 % Red Cell Distribution Width 14.7 % Platelet Count 210 TH/MM3 Mean Platelet Volume 11.1 FL Neutrophils (%) (Auto) 59.6 % Lymphocytes (%) (Auto) 32.2 % Monocytes (%) (Auto) 6.7 % Eosinophils (%) (Auto) 0.9 % Basophils (%) (Auto) 0.6 % Neutrophils # (Auto) 4.8 TH/MM3 Lymphocytes # (Auto) 2.6 TH/MM3 Monocytes # (Auto) 0.5 TH/MM3 Eosinophils # (Auto) 0.1 TH/MM3 Basophils # (Auto) 0.1 TH/MM3 CBC Comment AUTO DIFF Differential Comment AUTO DIFF CONFIRMED Lactic Acid Level 4.3 mmol/L Salicylates Level LESS THAN 1.7 MG/DL Blood Urea Nitrogen 21 MG/DL Creatinine 1.54 MG/DL Random Glucose 123 MG/DL Total Protein 5.6 GM/DL Albumin 3.0 GM/DL Calcium Level 8.6 MG/DL Alkaline Phosphatase 57 U/L Aspartate Amino Transf (AST/SGOT) 17 U/L Alanine Aminotransferase (ALT/SGPT) 18 U/L Total Bilirubin 0.8 MG/DL Sodium Level 143 MEQ/L Potassium Level 3.6 MEQ/L Chloride Level 110 MEQ/L Carbon Dioxide Level 26.7 MEQ/L Anion Gap 6 MEQ/L Estimat Glomerular Filtration Rate 45 ML/MIN Total Creatine Kinase 59 U/L Troponin I 0.04 NG/ML Thyroid Stimulating Hormone 3rd Gen 3.180 uIU/ML Acetaminophen Level LESS THAN 2.0 MCG/ML Ethyl Alcohol Level LESS THAN 3 MG/DL Prothrombin Time 15.2 SEC Prothromb Time International Ratio 1.5 RATIO Activated Partial Thromboplast Time 26.1 SEC Test 11/23/17 18:28 11/23/17 18:32 [facility] Medical Decision Making Medical Screen Exam Complete: Yes Emergency Medical Condition: Yes Differential Diagnosis Schizophrenia, adjustment disorder, pulmonary embolism, malingering. Narrative Course Patient was discussed with Dr. Lopez at 1900 shift change to follow-up CAT scans and disposition the patient appropriately per Tiburcio Chacon MD Nov 23, 2017 16:29
--- NOTE | 2017-11-23 16:35 | RADRPT ---
EXAM DATE/TIME: 11/23/2017 16:20 [facility] COMPARISON: CHEST SINGLE AP, January 16, 2017, 2:11. INDICATIONS : Shortness of breath. MEDICAL HISTORY : None. SURGICAL HISTORY : None. ENCOUNTER: Initial ACUITY: 1 day PAIN SCORE: 0/10 LOCATION: Bilateral chest FINDINGS: A single view of the chest demonstrates the lungs to be symmetrically aerated without evidence of mas s, infiltrate or effusion. Stable small granuloma in the right upper lung. The cardiomediastinal con tours are unremarkable. Osseous structures are intact. CONCLUSION: No acute disease. No significant change has occurred. Maximiliano Huizar MD on November 23, 2017 at 16:33 Board Certified Radiologist. This report was verified electronically.
[2017-11-23 16:52] LABS: AUTOMATED NEUTROPHIL # 4.8 TH/MM3 (1.8-7.7); BASOPHIL # 0.1 TH/MM3 (0-0.2); BASOPHIL % 0.6 % (0.0-2.0); EOSINOPHIL # 0.1 TH/MM3 (0-0.4); EOSINOPHIL % 0.9 % (0.0-4.0); HEMATOCRIT 52.5 % (39.0-51.0); HEMOGLOBIN 17.7 GM/DL (13.0-17.0); LYMPH % 32.2 % (9.0-44.0); LYMPHOCYTE # 2.6 TH/MM3 (1.0-4.8); MEAN CELL VOLUME 89.6 FL (80.0-100.0); MEAN CORPUSCULAR HEMOGLOBIN 30.2 PG (27.0-34.0); MEAN CORPUSCULAR HGB CONC 33.7 % (32.0-36.0); MEAN PLATELET VOLUME 11.1 FL (7.0-11.0); MONO % 6.7 % (0.0-8.0); MONOCYTE # 0.5 TH/MM3 (0-0.9); NEUT % 59.6 % (16.0-70.0); PLATELET COUNT 210 TH/MM3 (150-450); RED BLOOD COUNT 5.86 MIL/MM3 (4.50-5.90); RED CELL DISTRIBUTION WIDTH 14.7 % (11.6-17.2); WHITE BLOOD COUNT 8.1 TH/MM3 (4.0-11.0)
[2017-11-23] MEDS ORDERED: SODIUM CHLOR 0.9% 1000 ML INJ 1,000 ML IV ONE ×2 (17:30→19:45)
[2017-11-23 17:49] LABS: AST (GOT) 17 U/L (15-37); BICARBONATE 26.7 MEQ/L (21.0-32.0); BLOOD UREA NITROGEN 21 MG/DL (7-18); CALCIUM 8.6 MG/DL (8.5-10.1); CHLORIDE 110 MEQ/L (98-107); CREATININE 1.54 MG/DL (0.60-1.30); GLOMERULAR FILTRATION RATE 45 ML/MIN (>89); GLUCOSE,RANDOM 123 MG/DL (74-106); SODIUM (NA) 143 MEQ/L (136-145)
[2017-11-23 17:50] LABS: ACETAMINOPHEN LESS THAN 2.0 MCG/ML (10.0-30.0); ALT (GPT) 18 U/L (12-78)
[2017-11-23 17:56] LABS: INTERNATIONAL NORMALIZED RATIO 1.5 RATIO; PROTHROMBIN TIME - PATIENT 15.2 SEC (9.8-11.6)
[2017-11-23 18:00] LABS: ALKALINE PHOSPHATASE 57 U/L (45-117); TOTAL BILIRUBIN ADULT 0.8 MG/DL (0.2-1.0); TOTAL PROTEIN 5.6 GM/DL (6.4-8.2); TROPONIN I 0.04 NG/ML (0.02-0.05)
[2017-11-23 19:05] LABS: AMORPHOUS SEDIMENT, URINE RARE; BILIRUBIN, URINE NEG (NEG); BLOOD, URINE NEG (NEG); CALCIUM OXALATE CRYSTALS,URINE RARE /hpf; GLUCOSE,URINE TRACE mg/dL (NEG); KETONE, URINE NEG (NEG); MUCUS URINE FEW /lpf (OCC); NITRITE,URINE NEG (NEG); URINE COLOR YELLOW (YELLW/STRAW); URINE LEUKOCYTE ESTERASE NEG (NEG)
[2017-11-23] MEDS ORDERED: IOHEXOL 350 MG/ML 10 ML VIAL (for RAD DIAG) IVCONTRAST ONE (19:22)
--- NOTE | 2017-11-23 19:27 | RADRPT ---
EXAM DATE/TIME: 11/23/2017 18:54 [facility] COMPARISON: CT BRAIN W/O CONTRAST, January 16, 2017, 3:08. INDICATIONS : Altered mental status. RADIATION DOSE: 56.35 CTDIvol (mGy) MEDICAL HISTORY : Seizures. Hypertension. diabetes SURGICAL HISTORY : None. ENCOUNTER: Initial ACUITY: 1 day PAIN SCALE: Non-responsive LOCATION: Bilateral head TECHNIQUE: Multiple contiguous axial images were obtained of the head. Using automated exposure control and adj ustment of the mA and/or kV according to patient size, radiation dose was kept as low as reasonably a chievable to obtain optimal diagnostic quality images. DICOM format image data is available electro nically for review and comparison. FINDINGS: CEREBRUM: There is mild generalized atrophy. Ventricles are normal in size. No evidence of midline shift, mass lesion, hemorrhage or acute infarction. No extra-axial fluid collections are seen. POSTERIOR FOSSA: The cerebellum and brainstem are intact. The 4th ventricle is midline. The cerebellopontine angle i s unremarkable. EXTRACRANIAL: There is a mucous retention cyst in the left maxillary antrum. SKULL: The calvaria is intact. No evidence of skull fracture. CONCLUSION: No acute intracranial abnormality is identified. Justin Almazan MD on November 23, 2017 at 19:23 Board Certified Radiologist. This report was verified electronically.
--- NOTE | 2017-11-23 19:42 | RADRPT ---
EXAM DATE/TIME: 11/23/2017 18:59 [facility] COMPARISON: No previous studies available for comparison. INDICATIONS : Shortness of breath. IV CONTRAST: 66 cc Omnipaque 350 (iohexol) IV RADIATION DOSE: 8.32 CTDIvol (mGy) MEDICAL HISTORY : Cardiovascular disease. Hypertension. Seizures.diabetes SURGICAL HISTORY : None. ENCOUNTER: Initial ACUITY: 1 day PAIN SCALE: Non-responsive LOCATION: Bilateral head TECHNIQUE: Volumetric scanning of the chest was performed using a pulmonary embolism protocol MIP images were re constructed. Using automated exposure control and adjustment of the mA and/or kV according to patien t size, radiation dose was kept as low as reasonably achievable to obtain optimal diagnostic quality images. DICOM format image data is available electronically for review and comparison. Follow-up recommendations for detected pulmonary nodules are based at a minimum on nodule size and pa tient risk factors according to Fleischner Society Guidelines. FINDINGS: PULMONARY ARTERIES: No filling defects are seen in the pulmonary arteries through the segmental level and some of the sub segmental level pulmonary arteries. LUNGS: There is no consolidation or pneumothorax . No concerning pulmonary nodule is visualized. PLEURAE: There is trace left pleural fluid. No pleural thickening is seen. MEDIASTINUM: Heart and great vessels demonstrate no acute finding. The ascending aorta is aneurysmal measuring 4.3 cm. There is mild atherosclerotic disease of the aorta and there is coronary calcification. No lymph adenopathy is visualized. MUSCULOSKELETAL: There are degenerative changes of the thoracic spine. MISCELLANEOUS: The visualized upper abdominal organs demonstrate no acute abnormality. Bilateral gynecomastia is pre sent. CONCLUSION: 1. No PE is identified. Additionally, no acute findings identified to explain the shortness of breath . 2. Nonacute findings include coronary artery calcification, mildly aneurysmal ascending aorta measuri ng 4.3 cm, and bilateral gynecomastia. Justin Almazan MD on November 23, 2017 at 19:36 Board Certified Radiologist. This report was verified electronically.
[2017-11-23] MEDS ORDERED: VANCOMYCIN INJ 1,000 MG in SODIUM CHLOR 0.9% 250 ML INJ 250 ML IV ONE (19:45)
[2017-11-23] MEDS ORDERED: PIPERACIL-TAZO 4.5 GM PREMIX 100 ML IV ONE (19:45)
--- NOTE | 2017-11-23 20:10 | PD ---
Physical Exam Narrative Patient signed out to me at shift change pending CT pulmonary angiography for evaluation of patient's tachypnea and tachycardia at presentation. Patient's vital signs have normalized, heart rate 85, blood pressure normal 130/85, patient is afebrile oxygen saturation 99%. Patient's repeat lactate was 4.7 which is increased somewhat from 4.5 after receiving 2 L IV fluid. Unclear if patient has infective source and possible sepsis, patient had blood cultures performed earlier, patient had the addition of broad-spectrum antibiotics vancomycin 1 g and Zosyn 4.5 g IV piggyback administered. Third liter of IV fluid ordered. CT pulmonary angiography resulted as no PE seen, no obvious lung findings to represent patient's shortness of breath. Case discussed with Dr. Xiao from chemical pumper service, to evaluate for potential admission to ICU. Patient evaluated by Dr. Menard from chemical pumper service, patient currently not meeting ICU criteria. Case discussed with Dr. Menard and Dr. Kay from hospitalist service, admitted to hospitalist service Data Data Last Documented VS Vital Signs Date Time Temp Pulse Resp B/P (MAP) Pulse Ox O2 Delivery O2 Flow Rate FiO2 11/23/17 20:15 77 20 172/97 (122) 94 Room Air 11/23/17 19:18 4.00 11/23/17 15:44 98.2 Orders Orders Electrocardiogram (11/23/17 15:55) Complete Blood Count With Diff (11/23/17 15:55) Comprehensive Metabolic Panel (11/23/17 15:55) Creatine Kinase (Cpk) (11/23/17 15:55) Prothrombin Time / Inr (Pt) (11/23/17 15:55) Act Partial Throm Time (Ptt) (11/23/17 15:55) Troponin I (11/23/17 15:55) Thyroid Stimulating Hormone (11/23/17 15:55) Urinalysis - C+S If Indicated (11/23/17 15:55) Blood Culture (11/23/17 15:55) Chest, Single Ap (11/23/17 15:55) Ct Brain W/O Iv Contrast(Rout) (11/23/17 15:55) Blood Glucose (11/23/17 15:55) Ecg Monitoring (11/23/17 15:55) Iv Access Insert/Monitor (11/23/17 15:55) Oximetry (11/23/17 15:55) Sodium Chloride 0.9% Flush (Ns Flush) (11/23/17 16:00) Sodium Chlor 0.9% 1000 Ml Inj (Ns 1000 M (11/23/17 15:55) Drug Screen, Random Urine (11/23/17 15:55) Alcohol (Ethanol) (11/23/17 15:55) Tylenol (Acetaminophen) (11/23/17 15:55) Salicylates (Aspirin) (11/23/17 15:55) Diltiazem Inj (Cardizem Inj) (11/23/17 16:00) Lactic Acid (11/23/17 15:55) Blood Gas Venous (Vbg) (11/23/17 15:55) Albuterol-Ipratropium Neb (Duoneb Neb) (11/23/17 16:15) Lorazepam Inj (Ativan Inj) (11/23/17 16:15) Lorazepam Inj (Ativan Inj) (11/23/17 16:04) Restraints Non-Violent CLAUDIA.Q3H (11/23/17 16:20) Urinary Catheter Management CLAUDIA.Q8H (11/23/17 16:20) Ct Pulmonary Angiogram (11/23/17 ) Lorazepam Inj (Ativan Inj) (11/23/17 16:30) Sodium Chlor 0.9% 1000 Ml Inj (Ns 1000 M (11/23/17 17:30) Lactic Acid (11/23/17 18:42) Iohexol 350 Inj (Omnipaque 350 Inj) (11/23/17 19:22) Vancomycin Inj (Vancomycin Inj) (11/23/17 19:45) Piperacil-Tazo 4.5 Gm Premix (Zosyn 4.5 (11/23/17 19:45) Sodium Chlor 0.9% 1000 Ml Inj (Ns 1000 M (11/23/17 19:45) D-Dimer (11/23/17 19:42) Haloperidol Inj (Haldol Inj) (11/23/17 20:15) Admit Order (Ed Use Only) (11/23/17 20:40) Labs Laboratory Tests Test 11/23/17 15:59 11/23/17 16:18 11/23/17 17:06 11/23/17 17:13 Blood Gas Puncture Site IV Blood Gas Patient Temperature 98.6 Venous Blood pH 7.54 Venous Blood Partial Pressure CO2 24 mmHg Venous Blood Partial Pressure O2 32 mmHg Venous Blood HCO3 21 mmol/L Venous Blood Oxygen Saturation 70 % Venous Blood Oxygen Content 17.0 Vol % Venous Blood Base Excess -1.6 mmol/L Oxygen Delivery Device Non-Rebreathing Mask Blood Gas Liter Flow 15 L/M Blood Gas Inspired Oxygen 100 % White Blood Count 8.1 TH/MM3 Red Blood Count 5.86 MIL/MM3 Hemoglobin 17.7 GM/DL Hematocrit 52.5 % Mean Corpuscular Volume 89.6 FL Mean Corpuscular Hemoglobin 30.2 PG Mean Corpuscular Hemoglobin Concent 33.7 % Red Cell Distribution Width 14.7 % Platelet Count 210 TH/MM3 Mean Platelet Volume 11.1 FL Neutrophils (%) (Auto) 59.6 % Lymphocytes (%) (Auto) 32.2 % Monocytes (%) (Auto) 6.7 % Eosinophils (%) (Auto) 0.9 % Basophils (%) (Auto) 0.6 % Neutrophils # (Auto) 4.8 TH/MM3 Lymphocytes # (Auto) 2.6 TH/MM3 Monocytes # (Auto) 0.5 TH/MM3 Eosinophils # (Auto) 0.1 TH/MM3 Basophils # (Auto) 0.1 TH/MM3 CBC Comment AUTO DIFF Differential Comment AUTO DIFF CONFIRMED Lactic Acid Level 4.3 mmol/L Salicylates Level LESS THAN 1.7 MG/DL Blood Urea Nitrogen 21 MG/DL Creatinine 1.54 MG/DL Random Glucose 123 MG/DL Total Protein 5.6 GM/DL Albumin 3.0 GM/DL Calcium Level 8.6 MG/DL Alkaline Phosphatase 57 U/L Aspartate Amino Transf (AST/SGOT) 17 U/L Alanine Aminotransferase (ALT/SGPT) 18 U/L Total Bilirubin 0.8 MG/DL Sodium Level 143 MEQ/L Potassium Level 3.6 MEQ/L Chloride Level 110 MEQ/L Carbon Dioxide Level 26.7 MEQ/L Anion Gap 6 MEQ/L Estimat Glomerular Filtration Rate 45 ML/MIN Total Creatine Kinase 59 U/L Troponin I 0.04 NG/ML Thyroid Stimulating Hormone 3rd Gen 3.180 uIU/ML Acetaminophen Level LESS THAN 2.0 MCG/ML Ethyl Alcohol Level LESS THAN 3 MG/DL Prothrombin Time 15.2 SEC Prothromb Time International Ratio 1.5 RATIO Activated Partial Thromboplast Time 26.1 SEC D-Dimer Quantitative (PE/DVT) 0.41 MG/L FEU Test 11/23/17 18:28 11/23/17 18:32 Lactic Acid Level 4.7 mmol/L Urine Color YELLOW Urine Turbidity CLEAR Urine pH 7.0 Urine Specific [place] 1.010 Urine Protein NEG mg/dL Urine Glucose (UA) TRACE mg/dL Urine Ketones NEG mg/dL Urine Occult Blood NEG Urine Nitrite NEG Urine Bilirubin NEG Urine Urobilinogen LESS THAN 2.0 MG/DL Urine Leukocyte Esterase NEG Urine RBC 4 /hpf Urine WBC 1 /hpf Urine Calcium Oxalate Crystals RARE /hpf Urine Amorphous Sediment RARE Urine Mucus FEW /lpf Microscopic Urinalysis Comment CATH-CULT NOT IND Urine Opiates Screen NEG Urine Barbiturates Screen NEG Urine Amphetamines Screen NEG Urine Benzodiazepines Screen NEG Urine Cocaine Screen NEG Urine Cannabinoids Screen NEG MDM Medical Record Reviewed: Yes Supervised Visit with JOANA: Yes Differential Diagnosis Atrial fibrillation with RVR, paranoid schizophrenia, dehydration, lactic acidosis, possible sepsis Narrative Course See narrative above and original documentation from Dr. Chacon. Diagnosis Primary Impression: Atrial fibrillation Qualified Codes: I48.0 - Paroxysmal atrial fibrillation Additional Impressions: Schizoaffective disorder, bipolar type Dehydration Lactic acidosis Admitting Information Admitting Physician Requests: Admit Josse Cevallos MD Nov 23, 2017 20:10
[2017-11-23] MEDS ORDERED: HALOPERIDOL LACTATE 5 MG/ML AMP IM ONE (20:15)
--- NOTE | 2017-11-23 20:55 | HHI.HP ---
HPI Service [facility] Primary Care Physician [facility] Admission Diagnosis Atrial Fibrillation w/ RVR, lactic acidosis, Dehydration, Paranoid S Diagnoses: (1) Atrial fibrillation with RVR Diagnosis: Principal (2) Hypoxia Diagnosis: Principal (3) Lactic acidosis Diagnosis: Principal (4) DEEP (acute kidney injury) Diagnosis: Principal (5) Paranoid schizophrenia Diagnosis: Principal (6) HTN (hypertension) Diagnosis: Principal (7) Tobacco abuse Diagnosis: Principal Travel History International Travel<30 Days: No Contact w/Intl Traveler <30 Da: No Traveled to Known Affected Are: No History of Present Illness This is a 67-year-old male with a PMH of A. fib, Anxiety, Depression, Bipolar Disorder, Paranoid Schizophrenia, COPD and Tobacco Abuse who was brought to the ER by EMS for AMS. Per report, pt was tracked down at [facility] by Osiris Barahona for failing to appear in court and was arrested, however noted to be altered and tachypneic. Pt unable to provide any history. On arrival, O2 sat 68%, BP 144/85, HR 185 in A-fib, RR 26, Afebrile. S/p Cardizem IV w/ HR now 80' s. Initially placed on NRM, currently weaned down to 94% on RA. CBC with hemoconcentration, hemoglobin 17.7. Creatinine 1.54, producing 1.22 on . Lactic Acid 4.3, repeat 4.7. Troponin 0.04. INR 1.5. UA negative for UTI. Urine Drug Screen negative. Alcohol negative. Tylenol negative. Salicylate negative. CXR with no acute findings. CT Head negative. CTA Pulm negative for PE, no acute findings noted. S/p Vanc/Zosyn in ER for presumed sepsis at time of arrival. Review of Systems Except as stated in HPI: all other systems reviewed are Neg ROS: Unable to obtain secondary to paranoid schizophrenia/nonverbal. Past Family Social History Past Medical History PMH: A. fib, Anxiety, Depression, Bipolar Disorder, Paranoid Schizophrenia, COPD and Tobacco Abuse Past Surgical History PAST SURGICAL HISTORY: Eye Surgery Allergies: Coded Allergies: No Known Allergies (Verified , 01/16/17) Per pt. Family History PAST FAMILY HISTORY: Reviewed. No h/o DM or CAD Social History PAST SOCIAL HISTORY: Negative for alcohol or drugs. Smokes 3ppd. Physical Exam Vital Signs Vital Signs Date Time Temp Pulse Resp B/P (MAP) Pulse Ox O2 Delivery O2 Flow Rate FiO2 11/23/17 20:15 77 20 172/97 (122) 94 Room Air 11/23/17 19:18 84 20 185/100 (128) 100 Nasal Cannula 4.00 11/23/17 17:16 73 18 121/72 (88) 100 Nasal Cannula 6.00 11/23/17 16:48 77 18 155/75 (101) 100 Non-Rebreather 15.00 11/23/17 16:07 130 24 155/70 (98) 87 Non-Rebreather 11/23/17 16:05 120 25 205/126 (152) 94 Non-Rebreather 11/23/17 15:53 185 26 144/85 (104) 68 Room Air 11/23/17 15:48 175 26 11/23/17 15:44 98.2 148 26 92 Physical Exam PE: GENERAL: Middle-aged white male in no acute distress. Disheveled, mildly anxious /fidgety HEENT: PERRLA, EOMI. No scleral icterus or conjunctival pallor. No lid lag or facial droop. CARDIOVASCULAR: Irregularly irregular, in A. fib. No obvious murmurs to auscultation. No chest tenderness to palpation. RESPIRATORY: No obvious rhonchi or wheezing. Clear to auscultation. Breath sounds equal bilaterally. GASTROINTESTINAL: Abdomen soft, non-tender, nondistended. BS normal. MUSCULOSKELETAL: Extremities without clubbing, cyanosis, or edema. No obvious deformities. NEUROLOGICAL: Awake, alert, confused. No focal neurologic deficits. Moving both upper and lower extremities spontaneously. Laboratory Laboratory Tests Test 11/23/17 15:59 11/23/17 16:18 11/23/17 17:06 11/23/17 17:13 Blood Gas Puncture Site IV Blood Gas Patient Temperature 98.6 Venous Blood pH 7.54 Venous Blood Partial Pressure CO2 24 Venous Blood Partial Pressure O2 32 Venous Blood HCO3 21 Venous Blood Oxygen Saturation 70 Venous Blood Oxygen Content 17.0 Venous Blood Base Excess -1.6 Oxygen Delivery Device Non-Rebreathing Mask Blood Gas Liter Flow 15 Blood Gas Inspired Oxygen 100 White Blood Count 8.1 Red Blood Count 5.86 Hemoglobin 17.7 Hematocrit 52.5 Mean Corpuscular Volume 89.6 Mean Corpuscular Hemoglobin 30.2 Mean Corpuscular Hemoglobin Concent 33.7 Red Cell Distribution Width 14.7 Platelet Count 210 Mean Platelet Volume 11.1 Neutrophils (%) (Auto) 59.6 Lymphocytes (%) (Auto) 32.2 Monocytes (%) (Auto) 6.7 Eosinophils (%) (Auto) 0.9 Basophils (%) (Auto) 0.6 Neutrophils # (Auto) 4.8 Lymphocytes # (Auto) 2.6 Monocytes # (Auto) 0.5 Eosinophils # (Auto) 0.1 Basophils # (Auto) 0.1 CBC Comment AUTO DIFF Differential Comment AUTO DIFF CONFIRMED Lactic Acid Level 4.3 Salicylates Level LESS THAN 1.7 Blood Urea Nitrogen 21 Creatinine 1.54 Random Glucose 123 Total Protein 5.6 Albumin 3.0 Calcium Level 8.6 Alkaline Phosphatase 57 Aspartate Amino Transf (AST/SGOT) 17 Alanine Aminotransferase (ALT/SGPT) 18 Total Bilirubin 0.8 Sodium Level 143 Potassium Level 3.6 Chloride Level 110 Carbon Dioxide Level 26.7 Anion Gap 6 Estimat Glomerular Filtration Rate 45 Total Creatine Kinase 59 Troponin I 0.04 Thyroid Stimulating Hormone 3rd Gen 3.180 Acetaminophen Level LESS THAN 2.0 Ethyl Alcohol Level LESS THAN 3 Prothrombin Time 15.2 Prothromb Time International Ratio 1.5 Activated Partial Thromboplast Time 26.1 D-Dimer Quantitative (PE/DVT) 0.41 Test 11/23/17 18:28 11/23/17 18:32 Lactic Acid Level 4.7 Urine Color YELLOW Urine Turbidity CLEAR Urine pH 7.0 Urine Specific [place] 1.010 Urine Protein NEG Urine Glucose (UA) TRACE Urine Ketones NEG Urine Occult Blood NEG Urine Nitrite NEG Urine Bilirubin NEG Urine Urobilinogen LESS THAN 2.0 Urine Leukocyte Esterase NEG Urine RBC 4 Urine WBC 1 Urine Calcium Oxalate Crystals RARE Urine Amorphous Sediment RARE Urine Mucus FEW Microscopic Urinalysis Comment CATH-CULT NOT IND Urine Opiates Screen NEG Urine Barbiturates Screen NEG Urine Amphetamines Screen NEG Urine Benzodiazepines Screen NEG Urine Cocaine Screen NEG Urine Cannabinoids Screen NEG Date/Time Source Procedure Growth Status 11/23/17 16:18 Blood Peripheral Aerobic Blood Culture Pending Received 11/23/17 16:18 Blood Peripheral Anaerobic Blood Culture Pending Received Result Diagram: 11/23/17 1618 11/23/17 1706 Caprini VTE Risk Assessment Caprini VTE Risk Assessment: Mod/High Risk (score >= 2) Caprini Risk Assessment Model Point Value = 1 Point Value = 2 Point Value = 3 Point Value = 5 Age 41-60 Minor surgery BMI > 25 kg/m2 Swollen legs Varicose veins or History of unexplained or recurrent spontaneous Oral contraceptives or hormone replacement Sepsis (< 1 month) Serious lung disease, including pneumonia (< 1 month) Abnormal pulmonary function Acute myocardial infarction Congestive heart failure (< 1 month) History of inflammatory bowel disease Medical patient at bed rest Age 61-74 Arthroscopic surgery Major open surgery (> 45 min) Laparoscopic surgery (> 45 min) Malignancy Confined to bed (> 72 hours) Immobilizing plaster cast Central venous access Age >= 75 History of VTE Family history of VTE Factor V Leiden Prothrombin [id number] Lupus anticoagulant Anticardiolipin antibodies Elevated serum homocysteine Heparin-induced thrombocytopenia Other congenital or acquired thrombophilia Stroke (< 1 month) Elective arthroplasty Hip, pelvis, or leg fracture Acute spinal cord injury (< 1 month) Prophylaxis Regimen Total Risk Factor Score Risk Level Prophylaxis Regimen 0-1 Low Early ambulation 2 Moderate Order ONE of the following: *Sequential Compression Device (SCD) *Heparin 5000 units SQ BID 3-4 Higher Order ONE of the following medications: *Heparin 5000 units SQ TID *Enoxaparin/Lovenox 40 mg SQ daily (WT < 150 kg, CrCl > 30 mL/min) *Enoxaparin/Lovenox 30 mg SQ daily (WT < 150 kg, CrCl > 10-29 mL/min) *Enoxaparin/Lovenox 30 mg SQ BID (WT < 150 kg, CrCl > 30 mL/min) AND/OR *Sequential Compression Device (SCD) 5 or more Highest Order ONE of the following medications: *Heparin 5000 units SQ TID (Preferred with Epidurals) *Enoxaparin/Lovenox 40 mg SQ daily (WT < 150 kg, CrCl > 30 mL/min) *Enoxaparin/Lovenox 30 mg SQ daily (WT < 150 kg, CrCl > 10-29 mL/min) *Enoxaparin/Lovenox 30 mg SQ BID (WT < 150 kg, CrCl > 30 mL/min) AND *Sequential Compression Device (SCD) Assessment and Plan Problem List: (1) Atrial fibrillation with RVR ICD Code: I48.91 - Unspecified atrial fibrillation (2) Hypoxia ICD Code: R09.02 - Hypoxemia (3) Paranoid schizophrenia ICD Code: F20.0 - Paranoid schizophrenia (4) HTN (hypertension) ICD Code: I10 - Essential (primary) hypertension (5) DEEP (acute kidney injury) ICD Code: N17.9 - Acute kidney failure, unspecified (6) Tobacco abuse ICD Code: Z72.0 - Tobacco use Assessment and Plan A/P: 1. A. fib: w/ RVR, h/o A-fib, found to be in RVR on arrival, HR 190's, s/p Cardizem IV, currently HR 80's. Admit to [facility], monitor closely on telemetry, resume home Metoprolol, Cardizem gtt as needed for persistent arrhythmia. Initial trop 0.04, check serial cardiac enzymes to eval for underlying ischemia. Resume ASA. 2. Hypoxia: O2 sat 68% on arrival, unclear etiology, likely secondary to significant A-fib. CXR w no acute findings, CTA Pulm negative for PE or infiltrate, images reviewed by me. Currently weaned to RA, O2 sat 94%. Pt taking off oxygen as believes it's poison. Monitor O2. 3. Lactic Acidosis: Lactate 4.3, repeat 4.7 on arrival. No evidence of infection/sepsis, s/p Vanc/Zosyn, will hold off on further antibiotics as no source. Likely secondary to dehydration. IVF, repeat Lactic acid. 4. HTN: Uncontrolled. BP 180's. Resume home Metoprolol. Monitor BP. 5. Paranoid Schizophrenia: w/ Acute Exacerbation, taking off NC as believes it 's poison, removing telemetry. Haldol/Ativan prn. Resume home Loxapine. Consult Psych for further evaluation/recommendations. 6. DEEP: Creatinine 1.54, producing 1.22 on 03/12/17. UA negative for UTI. IVF for hydration, repeat labs in a.m. 7. Tobacco Abuse: Smokes 3ppd per report. NicoDerm prn if needed. 8. DVT Prophylaxis: SCD/Teds 9. Social work for d/c planning as needed. 10. Case discussed w/ ER physician and [facility] at length, labs/records/ imaging reviewed by me. Physician Certification 2 Midnight Certification Type: Admission for Inpatient Services Order for Inpatient Services The services are ordered in accordance with Medicare regulations or non- Medicare payer requirements, as applicable. In the case of services not specified as inpatient-only, they are appropriately provided as inpatient services in accordance with the 2-midnight benchmark. Estimated LOS (days): 2 days is the estimated time the patient will need to remain in the hospital, assuming treatment plan goals are met and no additional complications. Post-Hospital Plan: Not yet determined Cheryl Kay MD Nov 23, 2017 20:54
[2017-11-23] MEDS ORDERED: ONDANSETRON HCL 4 MG/2 ML VIAL IVP PRN (21:00)
[2017-11-23] MEDS: LOXAPINE 5 MG CAP PO SCH (21:00)
[2017-11-23] MEDS ORDERED: LORazepam 2 MG/ML VIAL IV PUSH PRN (21:00)
[2017-11-23] MEDS ORDERED: SENNOSIDES 8.6 MG TAB PO PRN (21:00)
[2017-11-23] MEDS ORDERED: ACETAMINOPHEN 325 MG TAB PO PRN (21:00)
[2017-11-23] MEDS ORDERED: MAGNESIUM HYDROXIDE SUSP 30 ML CUP PO PRN (21:00)
[2017-11-23] MEDS: DOCUSATE SODIUM 50 MG/SENNA 8.6 MG TAB PO SCH (21:00)
[2017-11-23] MEDS ORDERED: BISACODYL 10 MG SUPP RECTAL PRN (21:00)
[2017-11-23] MEDS ORDERED: LOXAPINE 25 MG CAP PO SCH (21:00)
[2017-11-23] MEDS ORDERED: LACTULOSE SYRUP 20 GM/30 ML CUP PO PRN (21:00)
[2017-11-23] MEDS ORDERED: MORPHINE SULFATE 2 MG/ML INJ IV PUSH PRN (21:00)
[2017-11-23] MEDS ORDERED: ACETAMINOPHEN/HYDROcodone 325 MG/5 MG TAB PO PRN (21:00)
[2017-11-23] MEDS: SODIUM CHLOR 0.9% 1000 ML INJ 1,000 ML IV SCH (21:00)
--- NOTE | 2017-11-23 21:13 | EKG ---
Date Performed: 11/23/2017 Time Performed: 15:51:09 PTAGE: 67 years EKG: ATRIAL FIBRILLATION WITH RAPID VENTRICULAR RESPONSE POSSIBLE INFERIOR MYOCARDIAL INFARCTION T-WAVE ABNORMALITY, CONSIDER LATERAL ISCHEMIA ABNORMAL ECG PREVIOUS TRACING : 01/16/2017 17.52 Compared to previous tracing, heart rate has increased. DOCTOR: Diego Rueda Interpretating Date/Time 11/23/2017 21:13:02
[2017-11-23] MEDS: SODIUM CHLORIDE 0.9% FLUSH 10 ML FLUSH IV FLUSH SCH (21:55)
[2017-11-23] MEDS: METOPROLOL TARTRATE 25 MG TAB PO SCH (23:46)
[2017-11-24] VITALS (14 sets, daily range): BP systolic 174; BP diastolic 106; PULSE 64–94; RESP 18; O2SAT 100
[2017-11-24] MEDS: SODIUM CHLOR 0.9% 1000 ML INJ 1,000 ML IV SCH (07:00)
[2017-11-24] MEDS ORDERED: ASPIRIN EC 81 MG TABEC PO SCH (09:00)
[2017-11-24] MEDS: LOXAPINE 5 MG CAP PO SCH (09:00)
[2017-11-24] MEDS: SODIUM CHLORIDE 0.9% FLUSH 10 ML FLUSH IV FLUSH SCH (09:00)
[2017-11-24] MEDS: DOCUSATE SODIUM 50 MG/SENNA 8.6 MG TAB PO SCH (09:00)
[2017-11-24] MEDS: METOPROLOL TARTRATE 25 MG TAB PO SCH (09:08)
--- NOTE | 2017-11-24 14:07 | PD.PSY.CON ---
Provisional Diagnosis Admission Date Nov 23, 2017 at 20:42 [place] I. 1. Schizoaffective disorder, bipolar type, acute exacerbation [place] II. Deferred History of Present Illness Service Psychiatry Consult Requested By Dr. Kay Reason for Consult "Paranoid schizophrenia" Primary Care Physician [facility] Mr. Desir is a 67-year-old male with a history of schizoaffective disorder who is presently admitted to the [facility] for evaluation of A. fib with RVR. Circumstances of patient's presentation here are somewhat confused, but from what I can glean from notes it seems that the patient was brought by a physical therapist technician to the police because he failed to appear in court. He was at some point noted to be altered and brought to the emergency department. Patient is well known to the psychiatric service here, and I have seen him several times previously on the inpatient unit myself. Electronic medical record reviewed. Patient seen and examined. Chart reviewed. MAR from outpatient facility reviewed. I note that patient most recently has been prescribed loxapine 25 mg twice daily. He has been refusing loxapine here in the hospital. Case discussed with nursing staff. On my examination today, the patient presents as severely decompensated with respect to his psychotic illness. He is perhaps the most ill that I have seen him. He is quite disheveled, irritable, paranoid and internally stimulated. He seems to have lost quite a bit of weight. He is unable to tolerate extended interview and yells at me "I don't want to talk to you! When I persist he says "no, go away!" He finally charges at me in a menacing manner, stopping at his doorway. Psychiatric interview is quite limited because of the patient's degree of psychotic decompensation. I am unable to obtain any past psychiatric, family, chemical dependency or social history from this patient for the same reason. Review of Systems ROS Limitations: Uncooperative, Psychotic, Poor Historian Other Limited ROS as patient is uncooperative, psychotic and a poor historian. Past Family Social History Coded Allergies: No Known Allergies (Verified , 01/16/17) Per pt. Past Medical History See electronic medical record Active Scripts Lisinopril (Lisinopril) 10 Mg Tab, 10 MG PO DAILY for Blood Pressure Management for 15 Days, TAB 1 Refill Prov:Lee Stanley MD 03/18/[address] (Adult Aspirin EC Low Strength) 81 Mg Tabec, 81 MG PO DAILY for Health for 15 Days, TAB 1 Refill Prov:Lee Stanley MD 03/18/17 Reported Medications Metoprolol Tartrate (Metoprolol Tartrate) 75 Mg Tab, 75 MG PO BID, #60 TAB 0 Refills 11/23/17 Loxapine (Loxapine) 25 Mg Cap, 25 MG PO BID, #60 CAP 0 Refills 11/23/17 Discontinued Scripts Nifedipine ER 24 HR (Nifedipine ER 24 HR) 60 Mg Tab, 60 MG PO DAILY for Blood Pressure Management for 15 Days, TAB 1 Refill Prov:Lee Stanley MD 03/18/17 Metoprolol Tartrate (Metoprolol Tartrate) 25 Mg Tab, 75 MG PO BID for Blood Pressure Management for 15 Days, TAB 1 Refill Prov:Lee Stanley MD 03/18/17 Loxapine (Loxapine) 5 Mg Cap, 20 MG PO BID for Mental Health for 15 Days, CAP 1 Refill Prov:Lee Stanley MD 03/18/17 Clonazepam (Klonopin) 0.5 Mg Tab, 0.5 MG PO Q12HR for Mental Health for 15 Days , TAB 1 Refill Prov:Lee Stanley MD 03/18/17 Atorvastatin (Atorvastatin) 20 Mg Tab, 20 MG PO HS for Cholesterol Management for 15 Days, TAB 1 Refill Prov:Lee Stanley MD 03/18/17 Current Medications Medications (Trade) Dose Ordered Sig/Mesha Route Start Time Stop Time Status Last Admin (NS Flush) 2 ml UNSCH PRN IV FLUSH 11/23/17 16:00 Sodium Chloride 1,000 ml @ 100 mls/hr Q10H IV 11/23/17 21:00 (NS Flush) 2 ml UNSCH PRN IV FLUSH 11/23/17 21:00 (NS Flush) 2 ml BID IV FLUSH 11/23/17 21:00 11/23/17 21:55 (Zofran Inj) 4 mg Q6H PRN IVP 11/23/17 21:00 (Tylenol) 650 mg Q6H PRN PO 11/23/17 21:00 (Lehr 5-325 Mg) 1 tab Q4H PRN PO 11/23/17 21:00 (Morphine Inj) 2 mg Q3H PRN IV PUSH 11/23/17 21:00 (Lizy-Colace) 1 tab BID PO 11/23/17 21:00 (Milk Of Magnesia Liq) 30 ml Q12H PRN PO 11/23/17 21:00 (Senokot) 17.2 mg Q12H PRN PO 11/23/17 21:00 (Dulcolax Supp) 10 mg DAILY PRN RECTAL 11/23/17 21:00 (Lactulose Liq) 30 ml DAILY PRN PO 11/23/17 21:00 (Ecotrin Ec) 81 mg DAILY PO 11/24/17 09:00 11/24/17 09:08 (Lopressor) 75 mg BID PO 11/23/17 21:00 11/24/17 09:08 (Ativan Inj) 1 mg Q2H PRN IV PUSH 11/23/17 21:00 (Loxitane) 25 mg BID PO 11/23/17 21:00 Physical Exam Physical exam completed by primary team. On my examination today, the patient appears to be in no acute physical distress. No motor abnormalities noted although the patient is somewhat psychomotor agitated. Labs and vitals reviewed : Vital Signs Vital Signs Date Time Temp Pulse Resp B/P (MAP) Pulse Ox O2 Delivery O2 Flow Rate FiO2 11/24/17 10:00 78 11/24/17 09:13 18 174/106 (128) 100 11/23/17 23:21 98.4 11/23/17 22:18 Room Air 11/23/17 19:18 4.00 I/O 11/24/17 11/24/17 11/25/17 08:00 16:00 00:00 Intake Total 480 ml Output Total 1 ml Balance 479 ml Lab Results Test 11/23/17 15:59 11/23/17 16:18 11/23/17 17:06 11/23/17 17:13 Blood Gas Puncture Site IV Blood Gas Patient Temperature 98.6 Venous Blood pH 7.54 Venous Blood Partial Pressure CO2 24 mmHg Venous Blood Partial Pressure O2 32 mmHg Venous Blood HCO3 21 mmol/L Venous Blood Oxygen Saturation 70 % Venous Blood Oxygen Content 17.0 Vol % Venous Blood Base Excess -1.6 mmol/L Oxygen Delivery Device Non-Rebreathing Mask Blood Gas Liter Flow 15 L/M Blood Gas Inspired Oxygen 100 % White Blood Count 8.1 TH/MM3 Red Blood Count 5.86 MIL/MM3 Hemoglobin 17.7 GM/DL Hematocrit 52.5 % Mean Corpuscular Volume 89.6 FL Mean Corpuscular Hemoglobin 30.2 PG Mean Corpuscular Hemoglobin Concent 33.7 % Red Cell Distribution Width 14.7 % Platelet Count 210 TH/MM3 Mean Platelet Volume 11.1 FL Neutrophils (%) (Auto) 59.6 % Lymphocytes (%) (Auto) 32.2 % Monocytes (%) (Auto) 6.7 % Eosinophils (%) (Auto) 0.9 % Basophils (%) (Auto) 0.6 % Neutrophils # (Auto) 4.8 TH/MM3 Lymphocytes # (Auto) 2.6 TH/MM3 Monocytes # (Auto) 0.5 TH/MM3 Eosinophils # (Auto) 0.1 TH/MM3 Basophils # (Auto) 0.1 TH/MM3 CBC Comment AUTO DIFF Differential Comment AUTO DIFF CONFIRMED Lactic Acid Level 4.3 mmol/L Salicylates Level LESS THAN 1.7 MG/DL Blood Urea Nitrogen 21 MG/DL Creatinine 1.54 MG/DL Random Glucose 123 MG/DL Total Protein 5.6 GM/DL Albumin 3.0 GM/DL Calcium Level 8.6 MG/DL Alkaline Phosphatase 57 U/L Aspartate Amino Transf (AST/SGOT) 17 U/L Alanine Aminotransferase (ALT/SGPT) 18 U/L Total Bilirubin 0.8 MG/DL Sodium Level 143 MEQ/L Potassium Level 3.6 MEQ/L Chloride Level 110 MEQ/L Carbon Dioxide Level 26.7 MEQ/L Anion Gap 6 MEQ/L Estimat Glomerular Filtration Rate 45 ML/MIN Total Creatine Kinase 59 U/L Troponin I 0.04 NG/ML Thyroid Stimulating Hormone 3rd Gen 3.180 uIU/ML Acetaminophen Level LESS THAN 2.0 MCG/ML Ethyl Alcohol Level LESS THAN 3 MG/DL Prothrombin Time 15.2 SEC Prothromb Time International Ratio 1.5 RATIO Activated Partial Thromboplast Time 26.1 SEC D-Dimer Quantitative (PE/DVT) 0.41 MG/L FEU Test 11/23/17 18:28 11/23/17 18:32 Lactic Acid Level 4.7 mmol/L Urine Color YELLOW Urine Turbidity CLEAR Urine pH 7.0 Urine Specific [place] 1.010 Urine Protein NEG mg/dL Urine Glucose (UA) TRACE mg/dL Urine Ketones NEG mg/dL Urine Occult Blood NEG Urine Nitrite NEG Urine Bilirubin NEG Urine Urobilinogen LESS THAN 2.0 MG/DL Urine Leukocyte Esterase NEG Urine RBC 4 /hpf Urine WBC 1 /hpf Urine Calcium Oxalate Crystals RARE /hpf Urine Amorphous Sediment RARE Urine Mucus FEW /lpf Microscopic Urinalysis Comment CATH-CULT NOT IND Urine Opiates Screen NEG Urine Barbiturates Screen NEG Urine Amphetamines Screen NEG Urine Benzodiazepines Screen NEG Urine Cocaine Screen NEG Urine Cannabinoids Screen NEG Date/Time Source Procedure Growth Status 11/23/17 16:18 Blood Peripheral Aerobic Blood Culture - Preliminary NO GROWTH IN 1 DAY Resulted 11/23/17 16:18 Blood Peripheral Anaerobic Blood Culture - Preliminary NO GROWTH IN 1 DAY Resulted Mental Status Examination Appearance: Disheveled Consciousness: Alert, Vigilant Orientation: Person Motor Activity: Normal gait Speech: Other (loud, angry) Language: Adequate Fund of Knowledge: Adequate Attention and Concentration: Easily Distracted Memory: Unremarkable Mood: Angry, Oppositional, Irritable Affect: Irritable, Other (dysphoric) Thought Process & Associations: Disorganized Thought Content: Delusional Hallucination Type: Other (appears internally stimulated) Delusion Type: Paranoid Suicidal Ideation: No (unreliable to contract for safety) Homicidal Ideation: No (unreliable to contract for safety) Insight: Poor Judgment: Poor Assessment & Plan Problem List: (1) Schizoaffective disorder, bipolar type ICD Codes: F25.0 - Schizoaffective disorder, bipolar type Status: Chronic Assessment & Plan 67-year-old male with psychiatric history as detailed above presently voluntarily admitted to the [facility] for evaluation of A. fib with RVR. Psychiatry is consulted as of his psychotic illness. He has been refusing psychotropic medications on the inpatient unit. On my examination today, the patient appears to be severely decompensated with respect to his primary psychotic illness. Medication nonadherence may be contributing to current decompensation. Patient requires inpatient psychiatric hospitalization for safety and stabilization. I have initiated a [facility] act. So long as the requirement for telemetry can be safely discontinued, patient may be transferred to the medical psychiatric unit. Case discussed with psych lower in supervisor. Case discussed with RN on the medical floor. Plan to admit to medical psychiatric unit under [facility] act. Thank you very much for this consultation. Lee Stanley MD Nov 24, 2017 14:07
--- NOTE | 2017-11-24 14:22 | HHI.PR ---
Subjective Remarks Patient was hospitalized for hypoxia, A. fib RVR, and lactic acidosis. So far he is refusing blood work today, he is refusing telemetry, he is refusing oxygen. He wishes to leave the hospital. Psychiatry has been consulted as I cannot quite determine this patient has competence to make that choice. He may have a schizophrenic exacerbation which could lead to his present metabolic disturbance. Objective Vital Signs Date Time Temp Pulse Resp B/P (MAP) Pulse Ox O2 Delivery O2 Flow Rate FiO2 11/24/17 10:00 78 11/24/17 09:13 81 18 174/106 (128) 100 11/24/17 09:00 78 11/24/17 08:37 75 18 11/24/17 08:00 74 11/24/17 07:00 74 11/24/17 06:00 80 11/24/17 05:00 64 11/24/17 04:54 71 11/24/17 04:00 66 11/24/17 03:00 72 11/24/17 02:00 66 11/24/17 01:00 70 11/24/17 00:00 94 11/23/17 23:21 98.4 76 16 157/91 (113) 94 11/23/17 23:00 84 11/23/17 22:18 78 18 142/85 (104) 97 Room Air 11/23/17 20:15 77 20 172/97 (122) 94 Room Air 11/23/17 19:18 84 20 185/100 (128) 100 Nasal Cannula 4.00 11/23/17 17:16 73 18 121/72 (88) 100 Nasal Cannula 6.00 11/23/17 16:48 77 18 155/75 (101) 100 Non-Rebreather 15.00 11/23/17 16:07 130 24 155/70 (98) 87 Non-Rebreather 11/23/17 16:05 120 25 205/126 (152) 94 Non-Rebreather 11/23/17 15:53 185 26 144/85 (104) 68 Room Air 11/23/17 15:48 175 26 11/23/17 15:44 98.2 148 26 92 I/O 11/23/17 11/23/17 11/23/17 11/24/17 11/24/17 11/24/17 07:00 15:00 23:00 07:00 15:00 23:00 Intake Total 3100 ml 480 ml Output Total 1 ml Balance 3100 ml 479 ml Intake Oral 480 ml IV Total 3100 ml Output Urine Total 1 ml # Bowel Movements 0 Result Diagram: 11/23/17 1618 11/23/17 1706 Objective Remarks GENERAL: NAD, A&Ox2, paranoid HEAD: Normocephalic. NECK: Supple, trachea midline. No lymphadenopathy. EYES: No scleral icterus. No injection or drainage. CARDIOVASCULAR: Regular rate and rhythm without murmurs, gallops, or rubs. RESPIRATORY: Breath sounds equal bilaterally. No accessory muscle use. GASTROINTESTINAL: Abdomen soft, non-tender, nondistended. MUSCULOSKELETAL: No cyanosis, or edema. SKIN: Warm and dry. NEURO: No focal neurological deficitis. A/P Problem List: (1) Schizophrenia ICD Code: F20.9 - Schizophrenia Status: Acute (2) Schizoaffective disorder ICD Code: F25.9 - Schizoaffective disorder Status: Acute (3) Paranoid schizophrenia ICD Code: F20.0 - Paranoid schizophrenia Assessment and Plan 67-year-old male admitted secondary to lactic acidosis, hypoxia, and A. fib RVR with underlying paranoid schizophrenia A. fib RVR Status post IV Cardizem Whenever we can check patient's heart rate has been back to regular baseline A. fib Patient refusing treatment Hypoxia Now off oxygen Refusing pulse ox evaluations Lactic acidosis Patient is refusing treatments Vancomycin and Zosyn ordered Hypertension Continue baseline treatment Follow blood pressures Adjust treatments as needed Paranoid schizophrenia Psychiatry evaluation pending Patient is refusing treatments Acute kidney injury Follow renal function Nicotine dependence NicoDerm as needed Patient counseled to quit DVT prophylaxis David Aragon MD Nov 24, 2017 14:22
--- NOTE | 2017-11-24 14:32 | HHI.DS ---
Discharge Summary Admission Date Nov 23, 2017 at 20:42 Discharge Date: Nov 24, 2017 Admitting Diagnosis Atrial Fibrillation w/ RVR, lactic acidosis, Dehydration, Paranoid S (1) Atrial fibrillation with RVR ICD Code: I48.91 - Unspecified atrial fibrillation Diagnosis: Principal (2) Hypoxia ICD Code: R09.02 - Hypoxemia Diagnosis: Principal (3) Paranoid schizophrenia ICD Code: F20.0 - Paranoid schizophrenia Diagnosis: Principal (4) HTN (hypertension) ICD Code: I10 - Essential (primary) hypertension Diagnosis: Principal (5) DEEP (acute kidney injury) ICD Code: N17.9 - Acute kidney failure, unspecified Diagnosis: Principal (6) Tobacco abuse ICD Code: Z72.0 - Tobacco use Diagnosis: Principal Procedures None Brief History - From Admission This is a 67-year-old male with a PMH of A. fib, Anxiety, Depression, Bipolar Disorder, Paranoid Schizophrenia, COPD and Tobacco Abuse who was brought to the ER by EMS for AMS. Per report, pt was tracked down at [facility] by Osiris Barahona for failing to appear in court and was arrested, however noted to be altered and tachypneic. Pt unable to provide any history. On arrival, O2 sat 68%, BP 144/85, HR 185 in A-fib, RR 26, Afebrile. S/p Cardizem IV w/ HR now 80' s. Initially placed on NRM, currently weaned down to 94% on RA. CBC with hemoconcentration, hemoglobin 17.7. Creatinine 1.54, producing 1.22 on . Lactic Acid 4.3, repeat 4.7. Troponin 0.04. INR 1.5. UA negative for UTI. Urine Drug Screen negative. Alcohol negative. Tylenol negative. Salicylate negative. CXR with no acute findings. CT Head negative. CTA Pulm negative for PE, no acute findings noted. S/p Vanc/Zosyn in ER for presumed sepsis at time of arrival. CBC/BMP: 11/23/17 1618 11/23/17 1706 Significant Findings Laboratory Tests Test 11/23/17 15:59 11/23/17 16:18 11/23/17 17:06 11/23/17 17:13 Venous Blood pH 7.54 (7.360-7.400) Venous Blood Partial Pressure CO2 24 mmHg (44-48) Venous Blood Partial Pressure O2 32 mmHg (35-40) Venous Blood HCO3 21 mmol/L (22-26) Hemoglobin 17.7 GM/DL (13.0-17.0) Hematocrit 52.5 % (39.0-51.0) Mean Platelet Volume 11.1 FL (7.0-11.0) Lactic Acid Level 4.3 mmol/L (0.4-2.0) Salicylates Level LESS THAN 1.7 MG/DL Blood Urea Nitrogen 21 MG/DL (7-18) Creatinine 1.54 MG/DL (0.60-1.30) Random Glucose 123 MG/DL (74-106) Total Protein 5.6 GM/DL (6.4-8.2) Albumin 3.0 GM/DL (3.4-5.0) Chloride Level 110 MEQ/L (98-107) Estimat Glomerular Filtration Rate 45 ML/MIN (>89) Acetaminophen Level LESS THAN 2.0 MCG/ML Prothrombin Time 15.2 SEC (9.8-11.6) Test 11/23/17 18:28 11/23/17 18:32 Lactic Acid Level 4.7 mmol/L (0.4-2.0) Urine RBC 4 /hpf (0-3) Urine Calcium Oxalate Crystals RARE /hpf (NONE) Urine Mucus FEW /lpf (OCC) Hospital Course 67-year-old male admitted secondary to lactic acidosis, hypoxia, and A. fib RVR with underlying paranoid schizophrenia. His RVR has resolved with IV dosing of diltiazem. No evidence of recurrence thus far. His paranoid schizophrenia appears to be decompensated and he would benefit from more intensive psychiatry care. Lactic acidosis should continue to be addressed with IV hydration so patient would do better med psych at this point. Hypoxia has resolved and patient is not having hypoxia even on room air. Medically clear for transfer to inpatient medical psych. A. fib RVR Resolved status post IV Cardizem Continue baseline metoprolol Monitor for tachycardia, with vital signs Hypoxia Now off oxygen No respiratory distress No need for oxygen supplementation Lactic acidosis Continue to monitor lactic acid levels IV hydration with normal saline at 100 mL/h Continue IV Vancomycin Continue IV Zosyn Hypertension Continue metoprolol Follow blood pressures Adjust treatments as needed Paranoid schizophrenia Inpatient psychiatry Discharge to [facility] psych Acute kidney injury Follow renal function Nicotine dependence NicoDerm as needed Patient counseled to quit DVT prophylaxis SCDs while in bed Pt Condition on Discharge: Fair Discharge Disposition: Disc to Psych Care Fac Discharge Time: <= 30 minutes Discharge Instructions DIET: Follow Instructions for: As Tolerated, No Restrictions Activities you can perform: Regular-No Restrictions Continued Medications: Aspirin DR (Adult Aspirin EC Low Strength) 81 Mg Tabec 81 MG PO DAILY for Health for 15 Days, TAB 1 Refill Loxapine (Loxapine) 25 Mg Cap 25 MG PO BID, #60 CAP 0 Refills Metoprolol Tartrate (Metoprolol Tartrate) 75 Mg Tab 75 MG PO BID, #60 TAB 0 Refills Discontinued Medications: Lisinopril (Lisinopril) 10 Mg Tab 10 MG PO DAILY for Blood Pressure Management for 15 Days, TAB 1 Refill David Petersen MD Nov 24, 2017 14:32
== END 2017-11-24 16:37 | DRG 309 ==
LOC: NEPE 15:18 → NEDA 20:42 → HCIS 22:45
PROVIDERS: ADMIT Hospitalist; ATTEND Hospitalist
DX: I48.0 Paroxysmal atrial fibrillation (principal); E87.2 Acidosis; N17.9 Acute kidney failure, unspecified; F20.0 Paranoid schizophrenia; F25.0 Schizoaffective disorder, bipolar type; E86.0 Dehydration; R09.02 Hypoxemia; F41.9 Anxiety disorder, unspecified; F32.9 Major depressive disorder, single episode, unspecified; E78.00 Pure hypercholesterolemia, unspecified; J44.9 Chronic obstructive pulmonary disease, unspecified; I10 Essential (primary) hypertension; F17.210 Nicotine dependence, cigarettes, uncomplicated; R00.0 Tachycardia, unspecified; Z79.899 Other long term (current) drug therapy; Z91.14 Patient's other noncompliance with medication regimen
CPT/HCPCS: 70450; 71045; 71275; 80053; 80307; 81001; 82550; 82805; 83605; 84443; 84484; 85025; 85379; 85610; 85730; 87040; 93005; 94664; 96361; 96365; 96372; 96375; J1630; J2060; J2543; J3370; J7030; J7050; Q9967

== ENCOUNTER 2017-11-24 16:50 | Inpatient (IN) | payer OTHER, MEDICARE ==
[~2017-11-24 16:50] MED LIST changes: +LOXA25CA PO; +METO-426 PO
[2017-11-24 17:01] VITALS: BP 187/117; PULSE 135; RESP 23; TEMP 97.8; O2SAT 95
[2017-11-24] MEDS ORDERED: diphenhydrAMINE HCL 50 MG CAP PO PRN (17:30)
[2017-11-24] MEDS ORDERED: diphenhydrAMINE HCL 50 MG/ML VIAL IM PRN (17:30)
[2017-11-24] MEDS ORDERED: ALUMINUM/MAGNESIUM/SIMETH 30 ML CUP PO PRN (17:30)
[2017-11-24] MEDS ORDERED: NICOTINE 21 MG/24 HR PATCH T-DERMAL PRN (17:30)
[2017-11-24] MEDS ORDERED: ACETAMINOPHEN 325 MG TAB PO PRN (17:30)
[2017-11-24] MEDS ORDERED: MAGNESIUM HYDROXIDE SUSP 30 ML CUP PO PRN (17:30)
[2017-11-24] MEDS ORDERED: cloNIDine HCL 0.1 MG TAB PO PRN (17:45)
[2017-11-24] MEDS ORDERED: cloNIDine HCL 0.1 MG/24 HR PATCH T-DERMAL SCH ×2 (18:00)
[2017-11-24 21:00] VITALS: BP 167/120; PULSE 124
[2017-11-24] MEDS ORDERED: METOPROLOL TARTRATE 25 MG TAB PO SCH (21:00)
[2017-11-24] MEDS ORDERED: LOXAPINE 25 MG CAP PO SCH (21:00)
[2017-11-24] MEDS ORDERED: REMOVE OLD PATCH T-DERMAL SCH (21:00)
[2017-11-24] MEDS ORDERED: LOXAPINE 5 MG CAP PO SCH (21:00)
[2017-11-25 05:20] VITALS: BP 220/120; PULSE 175; RESP 24; O2SAT 99
[2017-11-25 06:11] VITALS: BP 147/110; PULSE 101; RESP 17; TEMP 98; O2SAT 99
--- NOTE | 2017-11-25 06:57 | HHI.FPPN ---
Addendum to progress note ADDENDUM Reason for addendum: Additonal documentation Additional information Resident team was paged for a HaliCAT at 5:45 a.m. Patient is a 67 year old male with a past medical history of A.fib, COPD, anxiety, depression, bipolar disorder and paranoid schizophrenia who was brought to the ED via EMS with AMS on 11/23. On arrival, he was found to be in A.fib with RVR, hypertensive and dehydrated. He was medically managed by the hospitalist team until he was discharged in fair condition to the psych unit on 11/24. A.fib with RVR was noted to have had resolved. Upon arrival at bedside, resident team found patient vocally refusing care and unwilling to answer questions. He repeatedly asked to be left alone. Per nurse, patient had been refusing PO medications. Therefore, in an effort to control patient's blood pressure, clonidine patch had been ordered and placed earlier that evening. Vitals: BP 220/110 HR 176 O2 100% on RA GENERAL: Patient laying in bed, agitated. Disheveled. He does not appear to be in acute distress. CARDIOVASCULAR: Irregularly irregular rhythm. Tachycardic. No obvious murmurs to auscultation. RESPIRATORY: Clear to auscultation. Breath sounds equal bilaterally. Exam limited due to loud heart tones. MUSCULOSKELETAL: Patient moves all extremities spontaneously. No edema noted. NEUROLOGICAL: Awake, alert, confused. No focal neurologic deficits noted but exam limited due to patient's refusal to cooperate. Assessment and Plan: Patient is a 67 year old male with a past medical history of A.fib, COPD, anxiety, depression, bipolar disorder and paranoid schizophrenia. Resident team paged for a HaliCAT due to elevated blood pressure and tachycardia. Patient likely in A.fib with RVR. Patient refusing all care. Patient noted to be "severely decompensated with respect to his primary psychotic illness" as per psychiatry. * Patient refusing PO medication. NO IV access. * Primary team notified; placed order for patient transfer to hospital and resumed care. * Recommend the following imaging/studies/labs: chest x-ray, EKG, troponin, CBC with diff, BMP, lactic acid (elevated during previous hospitalization) * Recommend the following medication: Cardizem drip if EKG confirms A.fib with RVR and once, IV access is obtained. Patient seen and discussed with Janna Stafford MD R1 Nov 25, 2017 06:57
[2017-11-25] MEDS ORDERED: ASPIRIN EC 81 MG TABEC PO SCH (09:00)
--- NOTE | 2017-11-25 15:34 | EKG ---
Date Performed: 11/25/2017 Time Performed: 06:52:22 PTAGE: 67 years EKG: Atrial fibrillation with uncontrolled ventricular response. Possible anteroseptal infarct - age undetermined Inferior/lateral ST-T changes may be due to myocardial ischemia Possible inferior i nfarct, age undetermined Little significant change since prior tracing Abnormal ECG PREVIOUS TRACING : 11/23/17 @ 1551 DOCTOR: Carlos Alberto Manning Interpretating Date/Time 11/25/2017 15:32:20
[2017-11-26] MEDS ORDERED: LEVA750T9 PO (18:31)
[2017-11-26] MEDS ORDERED: DILT31TA PO (18:31)
[2017-12-01] MEDS ORDERED: REMOVE OLD CATAPRES (CLONIDINE) PATCH T-DERMAL SCH (18:00)
== END 2017-11-25 06:30 | disposition short-term general hospital (02) | DRG 310 ==
LOC: H4EA 16:50
PROVIDERS: ADMIT Student in an Organized Health Care Education/Training Program; ATTEND Student in an Organized Health Care Education/Training Program
DX: I48.91 Unspecified atrial fibrillation (principal); J44.9 Chronic obstructive pulmonary disease, unspecified; F25.9 Schizoaffective disorder, unspecified; I10 Essential (primary) hypertension; E86.0 Dehydration; R00.0 Tachycardia, unspecified; F41.9 Anxiety disorder, unspecified; F31.9 Bipolar disorder, unspecified
CPT/HCPCS: 93005

== ENCOUNTER 2017-11-25 06:30 | Inpatient (IN) | payer OTHER, MEDICARE ==
[2017-11-25] VITALS (10 sets, daily range): BP systolic 136–196; BP diastolic 91–128; PULSE 68–128; RESP 16–17; TEMP 98.2–98.4; O2SAT 97
[~2017-11-25] VITALS: Ht 172.7 cm; Wt 74.0 kg
[~2017-11-25 06:30] MED LIST changes: -ATOR20TA15 PO; -CLON.5 PO; -LISI10TA3 PO; -LOXA5CAP PO; -METO25TA3 PO; -NIFE60TA8 PO
[2017-11-25] MEDS ORDERED: DILTIAZEM INJ 125 MG in SODIUM CHLORIDE 0.9% INJ 100 ML IV PRN ×2 (08:15→11:00)
[2017-11-25] MEDS ORDERED: SODIUM CHLORIDE 0.9% FLUSH 10 ML FLUSH IV FLUSH PRN ×2 (08:15)
[2017-11-25] MEDS ORDERED: NALOXONE HCL 0.4 MG/ML AMP IV PUSH PRN (08:15)
[2017-11-25] MEDS ORDERED: LORazepam 2 MG/ML VIAL IM ONE (08:30)
[2017-11-25] MEDS ORDERED: HALOPERIDOL LACTATE 5 MG/ML AMP IM ONE (08:30)
[2017-11-25] MEDS ORDERED: MAGNESIUM HYDROXIDE SUSP 30 ML CUP PO PRN (09:00)
[2017-11-25] MEDS: SODIUM CHLORIDE 0.9% FLUSH 10 ML FLUSH IV FLUSH SCH ×4 (09:00→21:00)
[2017-11-25] MEDS: ENOXAPARIN SODIUM 40 MG/0.4 ML SYRINGE SQ SCH (09:00)
[2017-11-25] MEDS ORDERED: ONDANSETRON HCL 4 MG/2 ML VIAL IVP PRN (09:00)
[2017-11-25] MEDS ORDERED: cloNIDine HCL 0.1 MG TAB PO PRN (12:45)
[2017-11-25] MEDS ORDERED: ENALAPRILAT 1.25 MG/ML VIAL IV PUSH PRN (12:45)
--- NOTE | 2017-11-25 12:53 | HHI.HP ---
[facility] Primary Care Physician [facility] Admission Diagnosis Diagnoses: (1) Schizophrenia Diagnosis: Principal (2) Schizoaffective disorder Diagnosis: Principal (3) Atrial fibrillation with RVR Diagnosis: Principal Travel History International Travel<30 Days: No Contact w/Intl Traveler <30 Da: No Traveled to Known Affected Are: No History of Present Illness Mr. Desir is a 67-year-old male. He has paranoid schizophrenia baseline. This appears to be decompensated and this decompensation may have led to metabolic disturbances. He had been transferred to psychiatry yesterday and had previous be been admitted due to lactic acidosis, hypoxia, and A. fib RVR. Patient can provide no history so is uncertain how he came to acquire that status, but he appears disheveled and unable to care for himself. His hypoxia and A. fib RVR had corrected prior to discharge. Overnight patient has entered A. fib RVR again. He is brought back to the cardiac unit. He is refusing treatments. At this point he is under a [facility] act. Review of Systems ROS Limitations: Altered Mental Status, Refused, Combative, Psychotic, Poor Historian Past Family Social History Past Medical History Paranoid schizophrenia A. fib Anxiety Depression Bipolar Disorder COPD Past Surgical History Eye Surgery Reported Medications Reported Meds & Active Scripts Active Adult Aspirin EC Low Strength (Aspirin) 81 Mg Tabec 81 Mg PO DAILY 15 Days Reported Metoprolol Tartrate 75 Mg Tab 75 Mg PO BID Loxapine (Loxapine Succinate) 25 Mg Cap 25 Mg PO BID Allergies: Coded Allergies: No Known Allergies (Verified , 01/16/17) Per pt. Active Ordered Medications Administered Medications Medications (Trade) Dose Ordered Sig/Mesha Route PRN Reason Start Time Stop Time Status Last Admin Dose Admin Enoxaparin Sodium (Lovenox Inj) 40 mg Q24H SQ 11/25/17 09:00 11/25/17 09:00 Family History Patient reports none, this may not be accurate as patient has psychosis. Social History Negative for alcohol or drugs. Smokes 3ppd. Physical Exam Vital Signs Vital Signs Date Time Temp Pulse Resp B/P (MAP) Pulse Ox O2 Delivery O2 Flow Rate FiO2 11/25/17 12:37 100 11/25/17 11:39 98.4 123 17 196/128 (150) 97 11/25/17 07:43 128 Physical Exam GENERAL: NAD, A&Ox2 (Patient has refused other physical exam) Caprini VTE Risk Assessment Caprini VTE Risk Assessment: Mod/High Risk (score >= 2) Caprini Risk Assessment Model Point Value = 1 Point Value = 2 Point Value = 3 Point Value = 5 Age 41-60 Minor surgery BMI > 25 kg/m2 Swollen legs Varicose veins or History of unexplained or recurrent spontaneous Oral contraceptives or hormone replacement Sepsis (< 1 month) Serious lung disease, including pneumonia (< 1 month) Abnormal pulmonary function Acute myocardial infarction Congestive heart failure (< 1 month) History of inflammatory bowel disease Medical patient at bed rest Age 61-74 Arthroscopic surgery Major open surgery (> 45 min) Laparoscopic surgery (> 45 min) Malignancy Confined to bed (> 72 hours) Immobilizing plaster cast Central venous access Age >= 75 History of VTE Family history of VTE Factor V Leiden Prothrombin [id number] Lupus anticoagulant Anticardiolipin antibodies Elevated serum homocysteine Heparin-induced thrombocytopenia Other congenital or acquired thrombophilia Stroke (< 1 month) Elective arthroplasty Hip, pelvis, or leg fracture Acute spinal cord injury (< 1 month) Prophylaxis Regimen Total Risk Factor Score Risk Level Prophylaxis Regimen 0-1 Low Early ambulation 2 Moderate Order ONE of the following: *Sequential Compression Device (SCD) *Heparin 5000 units SQ BID 3-4 Higher Order ONE of the following medications: *Heparin 5000 units SQ TID *Enoxaparin/Lovenox 40 mg SQ daily (WT < 150 kg, CrCl > 30 mL/min) *Enoxaparin/Lovenox 30 mg SQ daily (WT < 150 kg, CrCl > 10-29 mL/min) *Enoxaparin/Lovenox 30 mg SQ BID (WT < 150 kg, CrCl > 30 mL/min) AND/OR *Sequential Compression Device (SCD) 5 or more Highest Order ONE of the following medications: *Heparin 5000 units SQ TID (Preferred with Epidurals) *Enoxaparin/Lovenox 40 mg SQ daily (WT < 150 kg, CrCl > 30 mL/min) *Enoxaparin/Lovenox 30 mg SQ daily (WT < 150 kg, CrCl > 10-29 mL/min) *Enoxaparin/Lovenox 30 mg SQ BID (WT < 150 kg, CrCl > 30 mL/min) AND *Sequential Compression Device (SCD) Assessment and Plan Problem List: (1) Schizoaffective disorder ICD Code: F25.9 - Schizoaffective disorder Status: Acute (2) Schizophrenia ICD Code: F20.9 - Schizophrenia Status: Acute (3) Atrial fibrillation with RVR ICD Code: I48.91 - Unspecified atrial fibrillation Assessment and Plan 67-year-old male admitted secondary to A. fib RVR with underlying paranoid schizophrenia, noncompliant with treatments. A. fib RVR IV Cardizem bolus IV Cardizem drip. Monitor on telemetry Cardiology consult Recent Lactic acidosis Lactic acid levels pending Vancomycin Zosyn Hypertension Uncontrolled Continue baseline treatment Follow blood pressures Adjust treatments as needed Paranoid schizophrenia Psychiatry following Patient is refusing treatments Acute kidney injury Follow renal function Nicotine dependence NicoDerm as needed Patient counseled to quit DVT prophylaxis SCDs Physician Certification 2 Midnight Certification Type: Admission for Inpatient Services Order for Inpatient Services The services are ordered in accordance with Medicare regulations or non- Medicare payer requirements, as applicable. In the case of services not specified as inpatient-only, they are appropriately provided as inpatient services in accordance with the 2-midnight benchmark. Estimated LOS (days): 3 days is the estimated time the patient will need to remain in the hospital, assuming treatment plan goals are met and no additional complications. Post-Hospital Plan: Other (specify) Notes: Psychiatry David Petersen MD Nov 25, 2017 12:53
[2017-11-25] MEDS ORDERED: LACTOBACILLUS ACIDOPHILUS TAB PO SCH (13:00)
[2017-11-25] MEDS ORDERED: SODIUM CHLOR 0.9% 1000 ML INJ 1,000 ML IV SCH (13:00)
[2017-11-25] MEDS: SODIUM CHLOR 0.9% 1000 ML INJ 1,000 ML IV SCH ×2 (14:15→23:46)
[2017-11-25] MEDS: PIPERACIL-TAZO 3.375 GM PREMIX 50 ML IV SCH ×2 (14:25→23:00)
[2017-11-25] MEDS: VANCOMYCIN INJ 1,000 MG in SODIUM CHLOR 0.9% 250 ML INJ 250 ML IV SCH (15:21)
--- NOTE | 2017-11-25 15:43 | MB ---
cc: Kike James DO DATE OF CONSULT: REASON FOR CONSULTATION: Atrial fibrillation with rapid ventricular response. HISTORY OF PRESENT ILLNESS: Luis Daniel Desir is a 67-year-old male who originally came in on 11/23/2017, as apparently, he was failing to appear in court and was arrested, and at that time, he was noted to be altered and tachypneic. On arrival, he was found to have a lactic acidosis and atrial fibrillation with rapid ventricular response. He was since evaluated and sent to the psychiatric unit and while there, apparently, he was found to be in atrial fibrillation with rapid ventricular response as well as hypertensive, so he was transferred back to the medical floor. He is unable to supply much history as he appears to have acute encephalopathy as well as a baseline paranoid schizophrenia. In walking into the room, he starts yelling and screaming at me and I am unable to even perform an exam or get any history from him, so history is taken from the chart. Patient appears overall disheveled and unable to take care of himself. Apparently, he is under a [facility] Act. Per the nurse, his heart rates have been elevated and he has been refusing treatment, but she finally got it so that he can be on the Cardizem drip. PAST MEDICAL HISTORY: 1. Paranoid schizophrenia. 2. Atrial fibrillation. 3. Anxiety. 4. Depression. 5. Bipolar disorder. 6. COPD. PAST SURGICAL HISTORY: Eye surgery. ALLERGIES: NO KNOWN DRUG ALLERGIES. MEDICATIONS: 1. tartrate 75 mg b.i.d. 2. Aspirin 81 mg daily. 3. Loxapine 25 mg b.i.d. FAMILY HISTORY: Per previous reports, the patient states that he has no family history. SOCIAL HISTORY: Denies alcohol or drugs. Apparently, the patient smokes 3 packs per day. PHYSICAL EXAMINATION: VITAL SIGNS: Temp 98.4, heart rate 123, blood pressure 196/128, respirations 17, pulse ox 97% on room air. GENERAL: The patient appears overall disheveled, in no acute distress. He is alert and does not appear to be oriented. Unable to perform other parts of the physical exam as the patient is being belligerent and swinging at myself and staff. He appears to be moving all 4 extremities. LABORATORY WORK: Hemoglobin 17.7, hematocrit 52.5, platelets 210. Potassium 3.6, BUN 21, creatinine 1.54, lactic acid 4.7. IMPRESSION: 1. Schizoaffective disorder with a component of paranoia. 2. Atrial fibrillation with rapid ventricular response. 3. Hypertension, accelerated hypertension. 4. Lactic acidosis. 5. Ascending aortic aneurysm measuring 4.[address] RECOMMENDATIONS: 1. Mr. Desir appears to be paranoid schizophrenic. He is being followed by psychiatry, and I will leave this up to them as well as the primary care team for further recommendations. 2. As far as his atrial fibrillation with rapid ventricular response, we will attempt to put him on a Cardizem drip, although I am not sure he will ultimately allow this. He overall needs to be on medications for better heart rate and blood pressure control. My other concern is that his heart rate and blood pressure are elevated due to his current psychiatric issues as well as agitation. 3. As far as anticoagulation goes, patient is obviously not a candidate in his current state, as there is a concern for compliance, as well as concern for his own health as well as unsure if the patient would be able to take his own medications at home. For now, we will keep him on aspirin 81 mg daily. 4. At this time, no further workup is necessary, although this will be reevaluated during the hospital course. 5. Spoke to him for greater than 3 minutes about tobacco cessation. 6. 4.3cm ascending aortic aneurysm by CT. Nothing at this time. Blood pressure control. Continue to follow outpatient. Thank you for allowing me to see Luis Daniel Desir. If there are any questions, please do not hesitate to call. DO KEYA Sorto/FENG , 02:12 PM , 03:34 PM SHRUTHI
[2017-11-25] MEDS: DILTIAZEM HCL 30 MG TAB PO SCH ×2 (16:55→23:46)
[2017-11-25] MEDS ORDERED: HALOPERIDOL LACTATE 5 MG/ML AMP IM PRN (17:15)
[2017-11-25] MEDS: LORazepam 2 MG/ML VIAL IV PUSH PRN (17:21)
[2017-11-25] MEDS ORDERED: LOXAPINE 25 MG CAP PO SCH (21:00)
[2017-11-25] MEDS ORDERED: METOPROLOL TARTRATE 25 MG TAB PO SCH (21:00)
[2017-11-26] VITALS: PULSE 78; PULSE 88
[2017-11-26 01:00] VITALS: PULSE 94
[2017-11-26] MEDS: PIPERACIL-TAZO 3.375 GM PREMIX 50 ML IV SCH ×2 (01:39→15:00)
[2017-11-26 02:00] VITALS: PULSE 102
[2017-11-26] MEDS: VANCOMYCIN INJ 1,000 MG in SODIUM CHLOR 0.9% 250 ML INJ 250 ML IV SCH ×2 (04:00→16:00)
[2017-11-26] MEDS: DILTIAZEM HCL 30 MG TAB PO SCH ×3 (05:17→18:00)
[2017-11-26 06:18] VITALS: BP_SYST 152; BP_SYST 185; BP_DIAS 105; BP_DIAS 73
[2017-11-26 06:33] VITALS: PULSE 72
[2017-11-26] MEDS: ENOXAPARIN SODIUM 40 MG/0.4 ML SYRINGE SQ SCH (09:00)
[2017-11-26] MEDS ORDERED: ASPIRIN EC 81 MG TABEC PO SCH (09:00)
[2017-11-26] MEDS: SODIUM CHLORIDE 0.9% FLUSH 10 ML FLUSH IV FLUSH SCH (09:00)
[2017-11-26] MEDS: LORazepam 2 MG/ML VIAL IV PUSH PRN (09:54)
[2017-11-26] MEDS: SODIUM CHLOR 0.9% 1000 ML INJ 1,000 ML IV SCH (10:00)
--- NOTE | 2017-11-26 11:44 | PD.CARD.PN ---
Subjective Subjective Remarks Patient belligerent Unable to examine Screams "Don't come in here.... get out of here" Objective Medications Current Medications Medications (Trade) Dose Ordered Sig/Mesha Route Start Time Stop Time Status Last Admin (NS Flush) 2 ml BID IV FLUSH 11/25/17 09:00 (Zofran Inj) 4 mg Q6H PRN IVP 11/25/17 09:00 (Lovenox Inj) 40 mg Q24H SQ 11/25/17 09:00 11/25/17 09:00 (Narcan Inj) 0.4 mg UNSCH PRN IV PUSH 11/25/17 08:15 (Milk Of Magntete Liq) 30 ml Q12H PRN PO 11/25/17 09:00 (NS Flush) 2 ml BID IV FLUSH 11/25/17 09:00 Diltiazem HCl 125 mg/Sodium Chloride 125 ml @ 5 mls/hr TITRATE PRN IV 11/25/17 11:00 11/25/17 13:25 (Catapres) 0.1 mg Q6H PRN PO 11/25/17 12:45 (Vasotec Inj) 1.25 mg Q6H PRN IV PUSH 11/25/17 12:45 Vancomycin HCl 1000 mg/Sodium Chloride 250 ml @ 250 mls/hr Q12H IV 11/25/17 16:00 11/25/17 15:21 Piperacillin Sod/ Tazobactam Sod 50 ml @ 100 mls/hr Q8H IV 11/25/17 15:00 11/26/17 01:39 Sodium Chloride 1,000 ml @ 100 mls/hr Q10H IV 11/25/17 14:00 11/25/17 14:15 (Cardizem) 30 mg Q6HR PO 11/25/17 18:00 11/25/17 16:55 (Ativan Inj) 1 mg Q6H PRN IV PUSH 11/25/17 17:15 11/26/17 09:54 (Haldol Inj) 5 mg Q6H PRN IM 11/25/17 17:15 Vital Signs / I&O Vital Signs Date Time Temp Pulse Resp B/P (MAP) Pulse Ox O2 Delivery O2 Flow Rate FiO2 11/26/17 06:33 72 11/26/17 02:00 102 11/26/17 01:00 94 11/26/17 00:00 88 11/26/17 00:00 78 11/25/17 23:00 88 11/25/17 22:00 84 11/25/17 21:00 70 11/25/17 20:11 68 11/25/17 19:00 72 11/25/17 16:24 100 11/25/17 15:27 98.2 93 16 136/91 (106) 97 11/25/17 15:21 93 136/91 11/25/17 13:25 123 196/128 11/25/17 12:37 100 11/25/17 11:39 98.4 123 17 196/128 (150) 97 I/O 11/25/17 11/25/17 11/25/17 11/26/17 11/26/17 11/26/17 07:00 15:00 23:00 07:00 15:00 23:00 Intake Total 50 ml Output Total 300 ml 125 ml Balance -250 ml -125 ml IV Total 50 ml Output Urine Total 300 ml 125 ml # Voids 3 Physical Exam Unable to examine due to patient being belligerent and yelling at me Assessment and Plan Problem List: (1) Atrial fibrillation with RVR ICD Codes: I48.91 - Unspecified atrial fibrillation (2) Schizophrenia ICD Codes: F20.9 - Schizophrenia Status: Acute (3) Schizoaffective disorder ICD Codes: F25.9 - Schizoaffective disorder Status: Acute (4) Tobacco abuse ICD Codes: Z72.0 - Tobacco use (5) Paranoid schizophrenia ICD Codes: F20.0 - Paranoid schizophrenia Assessment and Plan 1) Unable to treat due to patient not allowing, paranoid schizophrenic Psychiatry following 2) Afib/HTN currently stable Not taking PO meds, continues to refuse, unable to treat if not taking medications 3) Not an anticoagulation candidate due to overall state Would attempt to place on ASA 81mg 4) No further work up necessary at this time 5) Tobacco cessation 6) 4.3cm ascending aortic aneurysm by CT Blood pressure control Needs to be followed outpatient Kike James DO Nov 26, 2017 11:44
--- NOTE | 2017-11-26 12:33 | HHI.PR ---
Subjective Remarks persist. Patient has been noncompliant. His present state of schizophrenia is decompensated compared to his regular baseline. Patient will provide no history to me today. Objective Vital Signs Date Time Temp Pulse Resp B/P (MAP) Pulse Ox O2 Delivery O2 Flow Rate FiO2 11/26/17 06:33 72 11/26/17 02:00 102 11/26/17 01:00 94 11/26/17 00:00 88 11/26/17 00:00 78 11/25/17 23:00 88 11/25/17 22:00 84 11/25/17 21:00 70 11/25/17 20:11 68 11/25/17 19:00 72 11/25/17 16:24 100 11/25/17 15:27 98.2 93 16 136/91 (106) 97 11/25/17 15:21 93 136/91 11/25/17 13:25 123 196/128 11/25/17 12:37 100 I/O 11/25/17 11/25/17 11/25/17 11/26/17 11/26/17 11/26/17 07:00 15:00 23:00 07:00 15:00 23:00 Intake Total 50 ml Output Total 300 ml 125 ml Balance -250 ml -125 ml IV Total 50 ml Output Urine Total 300 ml 125 ml # Voids 3 Objective Remarks GENERAL: NAD, A&Ox1 (Patient refuses exam) A/P Problem List: (1) Tobacco abuse ICD Code: Z72.0 - Tobacco use (2) Paranoid schizophrenia ICD Code: F20.0 - Paranoid schizophrenia (3) Atrial fibrillation with RVR ICD Code: I48.91 - Unspecified atrial fibrillation (4) Schizophrenia ICD Code: F20.9 - Schizophrenia Status: Acute (5) Schizoaffective disorder ICD Code: F25.9 - Schizoaffective disorder Status: Acute Assessment and Plan 67-year-old male admitted secondary to A. fib RVR with underlying paranoid schizophrenia, noncompliant with treatments. A. fib RVR Patient is refusing telemetry Cardiology following By mouth Cardizem if patient cooperates Recent Lactic acidosis Lactic acid levels pending, patient refusing labs Vancomycin Zosyn Hypertension Uncontrolled, noncompliant with treatments Continue baseline treatment Follow blood pressures Adjust treatments as needed Paranoid schizophrenia Psychiatry following Patient is refusing treatments Acute kidney injury Follow renal function Nicotine dependence NicoDerm as needed Patient counseled to quit DVT prophylaxis SCDs David Petersen MD Nov 26, 2017 12:33
--- NOTE | 2017-11-26 15:02 | HHI.PYPN ---
Subjective Remarks The patient was seen today for psychiatric reevaluation. The case was widely discussed with nursing charge. On psychiatric evaluation the patient is found in his room, disorganized, agitated, restless, refusing to talk and persistently stating that "I don't want to talk, get out", at some point he has to be redirected and mannerly moved to his bed. As per nursing charge, the patient has been this way since yesterday, refusing to take medications, refusing to talk with a doctor and nurses and to cooperate in general. Review of Systems Psychiatric: COMPLAINS OF: Agitation, Delusions Mental Status Examination Appearance: Appropriate Orientation: Person Motor Activity: Abnormal gait Language: Perseveration Fund of Knowledge: Inadequate Memory: Impaired Mood: Angry Affect: Irritable Thought Process & Associations: Disorganized Thought Content: Delusional Delusion Type: Paranoid Suicidal Ideation: No Suicidal Plan: No Suicidal Intention: No Homicidal Plan: No Homicidal Intention: No Insight: Poor Judgment: Poor Results Vitals/IOs Vital Signs Date Time Temp Pulse Resp B/P (MAP) Pulse Ox O2 Delivery O2 Flow Rate FiO2 11/26/17 06:33 72 11/25/17 15:27 98.2 16 136/91 (106) 97 Intake and Output 11/26/17 11/26/17 11/27/17 08:00 16:00 00:00 Output Total 125 ml Balance -125 ml Assessment & Plan Problem List: (1) Paranoid schizophrenia ICD Codes: F20.0 - Paranoid schizophrenia Assessment & Plan: On psychiatric evaluation today the patient is agitated, disorganized, perseverant, non-cooperative. Patient does not have decision- making capacity to refuse medication and medical care at this moment. Haldol 5 mg IM every 8 hours when necessary agitation and aggressive behavior. Continue current psychotropic regimen. Transfer patient to psychiatry once medically clear. Assessment & Plan Estimated LOS: days Justification for Cont. Inpt. Transfer back to psychiatry once medically stable. Wilver Valdivia MD Nov 26, 2017 15:02
[2017-11-26] MEDS ORDERED: LORazepam 2 MG/ML VIAL IM ONE (18:00)
[2017-11-26] MEDS ORDERED: HALOPERIDOL LACTATE 5 MG/ML AMP IM ONE (18:00)
--- NOTE | 2017-11-26 18:27 | HHI.DS ---
Discharge Summary Admission Date Nov 25, 2017 at 06:30 Discharge Date: Nov 26, 2017 Admitting Diagnosis (1) Schizoaffective disorder ICD Code: F25.9 - Schizoaffective disorder Diagnosis: Principal Status: Acute (2) Schizophrenia ICD Code: F20.9 - Schizophrenia Diagnosis: Principal Status: Acute (3) Atrial fibrillation with RVR ICD Code: I48.91 - Unspecified atrial fibrillation Diagnosis: Principal Procedures None Brief History - From Admission Mr. Desir is a 67-year-old male. He has paranoid schizophrenia baseline. This appears to be decompensated and this decompensation may have led to metabolic disturbances. He had been transferred to psychiatry yesterday and had previous be been admitted due to lactic acidosis, hypoxia, and A. fib RVR. Patient can provide no history so is uncertain how he came to acquire that status, but he appears disheveled and unable to care for himself. His hypoxia and A. fib RVR had corrected prior to discharge. Overnight patient has entered A. fib RVR again. He is brought back to the cardiac unit. He is refusing treatments. At this point he is under a [facility] act. Hospital Course 67-year-old male admitted originally secondary to lactic acidosis, hypoxia, and A. fib RVR with underlying paranoid schizophrenia. His RVR has resolved with IV dosing of diltiazem. No evidence of recurrence thus far. His paranoid schizophrenia appears to be decompensated and he would benefit from more intensive psychiatry care. Lactic acidosis should continue to be addressed with IV hydration so patient would do better med psych at this point. Hypoxia has resolved and patient is not having hypoxia even on room air. Medically clear for transfer to inpatient medical psych. He returned again due to recurrence of A-fib RVR. This resolved with Cardizem, but patient is refusing treatments recurrently. He has been combative and paranoid while here. No cooperation with blood draws to track lactic acid levels. Medically stabilized and approved for transfer back to psychiatry today, Med-Psych unit. Pt Condition on Discharge: Stable Discharge Disposition: Disc to Psych Care Fac Discharge Time: <= 30 minutes Discharge Instructions DIET: Follow Instructions for: As Tolerated, No Restrictions Activities you can perform: Regular-No Restrictions David Petersen MD Nov 26, 2017 18:27
[2017-11-26] MEDS ORDERED: LEVA750T9 PO (18:31)
[2017-11-26] MEDS ORDERED: DILT31TA PO (18:31)
== END 2017-11-26 18:50 | DRG 308 ==
LOC: HCIS 06:30
PROVIDERS: ADMIT Internal Medicine; ATTEND Internal Medicine
DX: I48.91 Unspecified atrial fibrillation (principal); G93.40 Encephalopathy, unspecified; N17.9 Acute kidney failure, unspecified; F20.0 Paranoid schizophrenia; J44.9 Chronic obstructive pulmonary disease, unspecified; F17.210 Nicotine dependence, cigarettes, uncomplicated; I10 Essential (primary) hypertension; I71.2 Thoracic aortic aneurysm, without rupture; Z91.19 Patient's noncompliance with other medical treatment and regimen
CPT/HCPCS: 76937; J1630; J1650; J2060; J2543; J3370; J7030; J7050

== ENCOUNTER 2017-11-26 18:40 | Inpatient (IN) | payer OTHER, MEDICARE ==
[~2017-11-26 18:40] MED LIST changes: +DILT31TA PO; +LEVA750T9 PO
[2017-11-26] MEDS ORDERED: MAGNESIUM HYDROXIDE SUSP 30 ML CUP PO PRN (20:45)
[2017-11-26] MEDS ORDERED: ACETAMINOPHEN 325 MG TAB PO PRN (20:45)
[2017-11-26] MEDS ORDERED: LORazepam 1 MG TAB PO PRN (20:45)
[2017-11-26] MEDS ORDERED: ALUMINUM/MAGNESIUM/SIMETH 30 ML CUP PO PRN (20:45)
[2017-11-26] MEDS ORDERED: LORazepam 2 MG/ML VIAL IM PRN ×2 (20:45)
[2017-11-26] MEDS: REMOVE OLD NICODERM (NICOTINE) PATCH T-DERMAL SCH (21:00)
[2017-11-26] MEDS ORDERED: LOXAPINE 25 MG CAP PO SCH (21:00)
[2017-11-26 21:49] VITALS: PULSE 113; RESP 17; TEMP 98.1; O2SAT 95
[2017-11-26] MEDS: METOPROLOL TARTRATE 25 MG TAB PO SCH (22:07)
[2017-11-26] MEDS: DILTIAZEM HCL 30 MG TAB PO SCH (22:15)
[2017-11-27 04:45] VITALS: BP 176/96; PULSE 83; RESP 20; TEMP 97.9; O2SAT 95
[2017-11-27] MEDS: DILTIAZEM HCL 30 MG TAB PO SCH ×4 (05:39→23:27)
[2017-11-27] MEDS: LOXAPINE 5 MG CAP PO SCH ×2 (09:00→21:39)
[2017-11-27] MEDS: METOPROLOL TARTRATE 25 MG TAB PO SCH ×2 (09:00→21:39)
[2017-11-27] MEDS: NICOTINE 21 MG/24 HR PATCH T-DERMAL SCH (09:00)
[2017-11-27] MEDS: ASPIRIN EC 81 MG TABEC PO SCH (09:00)
--- NOTE | 2017-11-27 12:07 | HHI.HP ---
Provisional Diagnosis Admission Date Nov 26, 2017 at 18:45 [place]. Schizoaffective disorder Certification of Person's Competence To Provide Express and Informed Consent I have personally examined Luis Daniel Desir , a person being served at [facility] on, Nov 27, 2017 11:55. Express and informed consent means consent voluntarily given in writing, by a competent person, after sufficient explanation and disclosure of the subject matter involved to enable the person to make a knowing and willful decision without any element of force, fraud, deceit, duress, or other form of constraint or coercion. This person is 18 years of age or older, is not now known to be incompetent to consent to treatment with a guardian advocate, and does not have a health care surrogate or proxy currently making medical treatment decisions. I have found this person to be one of the following: [] Competent to provide express and informed consent, as defined above, for voluntary admission to this facility and is competent to provide express and informed consent for treatment. He/she has the consistent capacity to make well reasoned, willful, and knowing decisions concerning his or her medical or mental health treatment. The person fully and consistently understands the purpose of the admission for examination/placement and is fully capable of personally exercising all rights assured [place] [] Incompetent to provide express and informed consent to voluntary admission, and this is incompetent to provide express and informed consent to treatment. The person must be transferred to involuntary status and a petition for a guardian advocate filed with the Circuit Court. [x] Refusing to provide express and informed consent to voluntary admission but is competent to provide express and informed consent for treatment. The person must be discharged or transferred to involuntary status. Form shall be completed within 24 hours of a person's arrival at the receiving facility and filed in the clinical record of each person: 1. Admitted on a voluntary basis 2. Permitted to provide express and informed consent to his/her own treatment 3. Allowed to transfer from involuntary to voluntary status 4. Prior to permitting a person to consent to his or her own treatment after having been previously found incompetent to consent to treatment. History of Present Illness Capacity: Lacks Capacity HPI Late entry, patient was seen 11/26/2017 at 11:[address] Stanley 11/23/2017 for consultation: Mr. Desir is a 67-year-old male with a history of schizoaffective disorder who is presently admitted to the [facility] for evaluation of A. fib with RVR. Circumstances of patient's presentation here are somewhat confused, but from what I can glean from notes it seems that the patient was brought by a cashiers supervisor to the police because he failed to appear in court. He was at some point noted to be altered and brought to the emergency department. Patient is well known to the psychiatric service here, and I have seen him several times previously on the inpatient unit myself. Electronic medical record reviewed.Patient seen and examined. Chart reviewed. MAR from outpatient facility reviewed. I note that patient most recently has been prescribed loxapine 25 mg twice daily. He has been refusing loxapine here in the hospital. Case discussed with nursing staff. On my examination today, the patient presents as severely decompensated with respect to his psychotic illness. He is perhaps the most ill that I have seen him. He is quite disheveled, irritable, paranoid and internally stimulated. He seems to have lost quite a bit of weight. He is unable to tolerate extended interview and yells at me "I don't want to talk to you! When I persist he says "no, go away!" He finally charges at me in a menacing manner, stopping at his doorway. Psychiatric interview is quite limited because of the patient's degree of psychotic decompensation. I am unable to obtain any past psychiatric , family, chemical dependency or social history from this patient for the same reason. The patient is a 66 year-old man, domiciled in [facility], single , unemployed, supported by [facility], with extensive psychiatric history of schizophrenia, schizoaffective, multiple psychiatric hospitalizations, known by our service, he was recently discharged from [facility] units where he was under the care of Dr. Ivy, documentation was reviewed, he is on Haldol 10 mg twice a day, Abilify 15 mg, benztropine 1 mg twice a day, medical history of disorder hyperlipidemia, hypertension was brought to the ED for evaluation of altered mental status change and medical clearance from [facility].The patient was seen today for psychiatric reevaluation. The case was widely discussed with nursing charge. On psychiatric evaluation the patient is found in his room, disorganized, agitated, restless, refusing to talk and persistently stating that "I don't want to talk, get out", at some point he has to be redirected and mannerly moved to his bed. As per nursing charge, the patient has been this way since yesterday, refusing to take medications, refusing to talk with a doctor and nurses and to cooperate in general Past Family Social History Coded Allergies: No Known Allergies (Verified , 01/16/17) Per pt. Active Scripts Levofloxacin (Levaquin) 750 Mg Tablet, 750 MG PO DAILY for Infection, #7 TAB 0 Refills Prov:David Petersen MD 11/26/17 Diltiazem (Cardizem) 30 Mg Tab, 30 MG PO Q6HR for Blood Pressure Management, # 30 TAB Prov:David Petersen MD 11/26/[address] (Adult Aspirin EC Low Strength) 81 Mg Tabec, 81 MG PO DAILY for Health for 15 Days, TAB 1 Refill Prov:Lee Stanley MD 03/18/17 Reported Medications Metoprolol Tartrate (Metoprolol Tartrate) 75 Mg Tab, 75 MG PO BID, #60 TAB 0 Refills 11/23/17 Loxapine (Loxapine) 25 Mg Cap, 25 MG PO BID, #60 CAP 0 Refills 11/23/17 Discontinued Scripts Lisinopril (Lisinopril) 10 Mg Tab, 10 MG PO DAILY for Blood Pressure Management for 15 Days, TAB 1 Refill Prov:Lee Stanley MD 03/18/17 Nifedipine ER 24 HR (Nifedipine ER 24 HR) 60 Mg Tab, 60 MG PO DAILY for Blood Pressure Management for 15 Days, TAB 1 Refill Prov:Lee Stanley MD 03/18/17 Metoprolol Tartrate (Metoprolol Tartrate) 25 Mg Tab, 75 MG PO BID for Blood Pressure Management for 15 Days, TAB 1 Refill Prov:Lee Stanley MD 03/18/17 Loxapine (Loxapine) 5 Mg Cap, 20 MG PO BID for Mental Health for 15 Days, CAP 1 Refill Prov:Lee Stanley MD 03/18/17 Clonazepam (Klonopin) 0.5 Mg Tab, 0.5 MG PO Q12HR for Mental Health for 15 Days , TAB 1 Refill Prov:Lee Stanley MD 03/18/17 Atorvastatin (Atorvastatin) 20 Mg Tab, 20 MG PO HS for Cholesterol Management for 15 Days, TAB 1 Refill Prov:Lee Stanley MD 03/18/17 Current Medications Medications (Trade) Dose Ordered Sig/Mesha Route Start Time Stop Time Status Last Admin (Ecotrin Ec) 81 mg DAILY PO 11/27/17 09:00 (Cardizem) 30 mg Q6HR PO 11/27/17 00:00 11/27/17 11:37 (Lopressor) 75 mg BID PO 11/26/17 21:00 11/27/17 09:00 (Ativan) 0.5 mg Q12H PRN PO 11/26/17 20:45 (Ativan Inj) 0.5 mg Q12H PRN IM 11/26/17 20:45 (Tylenol) 650 mg Q4H PRN PO 11/26/17 20:45 (Milk Of Magnesia Liq) 30 ml DAILY PRN PO 11/26/17 20:45 (Mag-Al Plus Susp Liq) 30 ml Q6H PRN PO 11/26/17 20:45 (Habitrol 21 Mg Patch.24 Hr) 1 patch DAILY T-DERMAL 11/27/17 09:00 Miscellaneous Information 1 HS T-DERMAL 11/26/17 21:00 (Loxitane) 25 mg BID PO 11/27/17 09:00 11/27/17 09:00 Physical Exam Vital Signs Vital Signs Date Time Temp Pulse Resp B/P (MAP) Pulse Ox O2 Delivery O2 Flow Rate FiO2 11/27/17 04:45 97.9 83 20 176/96 (122) 95 I/O 11/27/17 11/27/17 11/28/17 08:00 16:00 00:00 Intake Total 60 ml 240 ml Balance 60 ml 240 ml Mental Status Examination Appearance: Dirty, Disheveled Consciousness: Alert Orientation: Person Motor Activity: Abnormal gait Speech: Rapid, Other (loud) Language: Adequate Fund of Knowledge: Inadequate Memory: Impaired Mood: Angry Affect: Other (euphoric ) Thought Content: Bizarre thinking, Hallucinations, Delusional, Compulsive Hallucination Type: None Delusion Type: Paranoid Suicidal Ideation: No Suicidal Plan: No Suicidal Intention: No Homicidal Ideation: No Homicidal Plan: No Homicidal Intention: No Insight: Poor Judgment: Poor Assessment & Plan Problem List: (1) Schizoaffective disorder, depressive type ICD Codes: F25.1 - Schizoaffective disorder, depressive type Status: Acute Assessment & Plan: The patient is uncooperative, very oppositional, refusing to talk and provide information for the psychiatric assessment. The patient is very disorganized, paranoid and behaviorally dysregulated. He has been refusing to take his medical and psychiatric medications and he is unable to offer an examination for his decision. The patient is in the elevator risk of danger to self due to the level of psychosis. He denies psychiatric hospitalization for stabilization. Continue loxapine 25 milligrams twice a day. Assessment & Plan Estimated LOS: days Wilver Valdivia MD Nov 27, 2017 12:07
--- NOTE | 2017-11-27 12:28 | HHI.PYPN ---
Subjective Remarks Patient is seen for follow, chart reviewed. Patient is 67-year-old man, domiciled at [facility]) with a past psychiatric history of schizoaffective disorder and multiple psychiatric admissions, with a past medical history significant for atrial fibrillation, COPD who was admitted to be psychiatry unit for further evaluation and management of current psychotic behavior as well as significant self-care deficit which patient was put under [facility] act for the same. Patient was found lying in hospital bed noted to be disheveled, irritable, yelling at underwriter mortgage loan stating "go away! I do not want to talk to you!, Get out of here!" Despite multiple attempts to have patient engage in review patient continues with his behaviors are becoming aggressive. As per chart patient was initially admitted to the CICU for atrial fibrillation and RVR after being brought in by police after he was found by a cloth doffer for failure to appear in court and was therefore arrested. Patient was admitted to the medical unit treated for atrial fibrillation and RVR, hypoxia, lactic acidosis, hypertension, AKA which she was then discharged to the medical psychiatrist on 11/24/17 and upon arrival was noted to have elevated blood pressure which Julieth urbina was called and had to be readmitted to medical floor for resurgence of atrial fibrillation again. Patient was observed and stabilized and admitted back to medical/psychiatry unit for further evaluation and management of current psychosis. Petition for involuntary hospitalization was started on completed by underwriter mortgage loan due to concern for patient having significant self-care deficits and current psychosis. As per chart family psychiatric history denied Past psychiatric history: Schizoaffective disorder, multiple psychiatric admissions, unclear if patient has previous suicide attempt or self-injurious behavior. Substance use history: Unable to assess due to patient not cooperating with interview at this time. Past medical history: Atrial fibrillation, COPD Allergies: NKDA Social history: Domiciled in [facility] Review of Systems Except as stated in HPI: all other systems reviewed are Neg Mental Status Examination Appearance: Dirty, Disheveled Consciousness: Alert Orientation: Person Motor Activity: Abnormal gait Speech: Rapid, Other (loud) Language: Adequate Fund of Knowledge: Inadequate Memory: Impaired Mood: Angry Affect: Other (euphoric ) Thought Content: Bizarre thinking, Hallucinations, Delusional, Compulsive Hallucination Type: None Delusion Type: Paranoid Suicidal Ideation: No Suicidal Plan: No Suicidal Intention: No Homicidal Ideation: No Homicidal Plan: No Homicidal Intention: No Insight: Poor Judgment: Poor Results Vitals/IOs Vital Signs Date Time Temp Pulse Resp B/P (MAP) Pulse Ox O2 Delivery O2 Flow Rate FiO2 11/27/17 04:45 97.9 83 20 176/96 (122) 95 Intake and Output 11/27/17 11/27/17 11/28/17 08:00 16:00 00:00 Intake Total 60 ml 240 ml Balance 60 ml 240 ml Assessment & Plan Problem List: (1) Schizoaffective disorder, depressive type ICD Codes: F25.1 - Schizoaffective disorder, depressive type Status: Acute Assessment & Plan Patient is a 67 y/o man who carries a diagnosis of Schizoaffective disorder who presents psychotic, poor self care requiring inpatient stabilization. Will continue patient on Loxapine 25mg PO BID, continue recommendations as per primary medical team. Continue to monitor mood and behavior. Petition for involuntary hospitalization completed. Patient petition for health care surrogate and guardian advocate completed. Social work intervention for psychosocial assessment. Collateral information Petti. Discharge planning in progress. Justification for Cont. Inpt. At risk of further decompensation at lower level of care. Discharge Planning Patient to return back to [facility] when psychiatrically stable. Rashaad Guerra MD Nov 27, 2017 12:28
--- NOTE | 2017-11-27 13:17 | PD.CONS ---
[facility] Request[facility] By Reason for Consult Medical management, HTN, h/o A Fib Primary Care Physician Rudi [facility] Diagnoses: (1) Paranoid schizophrenia History of Present Illness This is a 67-year-old male with a history of schizophrenia, hypertension and alleged history of atrial fibrillation with previous episodes of RVR. He refused to provide any insight into his medical conditions and started at myself as well as other staff members at a separate time to "get out of my room ". He does not appear violent only noncooperative. Review of Systems ROS Limitations: Clinical Condition, Altered Mental Status, Uncooperative, Refused, Psychotic, Poor Historian Past Family Social History Allergies: Coded Allergies: No Known Allergies (Verified , 01/16/17) Per pt. Past Medical History Schizophrenia Atrial Fib with RVR Hypertension Past Surgical History Patient refused to be interviewed Family History Patient refused to be interviewed Social History Patient refused to be interviewed Physical Exam Vital Signs Vital Signs Date Time Temp Pulse Resp B/P (MAP) Pulse Ox O2 Delivery O2 Flow Rate FiO2 11/27/17 04:45 97.9 83 20 176/96 (122) 95 11/26/17 21:49 98.1 113 17 95 Physical Exam GENERAL: This is a thin man who is currently in an acute psychotic episode SKIN: No rashes, ecchymoses or lesions. Cool and dry. HEAD: Atraumatic. Normocephalic. No temporal or scalp tenderness. EYES: Pupils equal round and reactive. Extraocular motions intact. No scleral icterus. No injection or drainage. ENT: Nose without bleeding, further exam refused NECK: Refused exam CARDIOVASCULAR: Refused exam RESPIRATORY: Refused exam GASTROINTESTINAL: Refused exam MUSCULOSKELETAL: No apparent trauma of upper extremities, lower extremities were unable to be examined NEUROLOGICAL: No focal deficits though patient is noncompliant with exam Assessment and Plan Problem List: (1) Schizophrenia ICD Code: F20.9 - Schizophrenia Status: Acute Assessment and Plan Schizophrenia By problem list patient has a history of paranoid schizophrenia He has been refusing most care offered to him He refused my evaluation today, kicked me out of his room Hypertension A single vital signs reveals systolic blood pressure of 176 Will add as needed clonidine for coverage if he complies with another blood pressure and it remains high h/o A. fib with RVR Unable to be evaluated due to patient refusing exam We will attempt to evaluate the rate and rhythm of his heart tomorrow DVT Prophylaxis Patient refuses Arsen Petersen MD Nov 27, 2017 13:17
[2017-11-27] MEDS: REMOVE OLD NICODERM (NICOTINE) PATCH T-DERMAL SCH (21:00)
[2017-11-28] MEDS: DILTIAZEM HCL 30 MG TAB PO SCH ×3 (05:31→18:00)
[2017-11-28 06:00] VITALS: BP 167/77; PULSE 69; RESP 19; TEMP 97.4; O2SAT 96
[2017-11-28] MEDS: ASPIRIN EC 81 MG TABEC PO SCH (09:00)
[2017-11-28] MEDS: NICOTINE 21 MG/24 HR PATCH T-DERMAL SCH (09:00)
[2017-11-28] MEDS: LOXAPINE 5 MG CAP PO SCH ×2 (09:00→21:00)
[2017-11-28] MEDS: METOPROLOL TARTRATE 25 MG TAB PO SCH ×2 (09:00→21:00)
--- NOTE | 2017-11-28 10:28 | HHI.PR ---
Subjective Remarks Patient is again defensive today. Before I could walk in the room he shouted "go away!". Objective Vitals Vital Signs Date Time Temp Pulse Resp B/P (MAP) Pulse Ox O2 Delivery O2 Flow Rate FiO2 11/28/17 06:00 97.4 69 19 167/77 (107) 96 I/O 11/27/17 11/27/17 11/27/17 11/28/17 11/28/17 11/28/17 07:00 15:00 23:00 07:00 15:00 23:00 Intake Total 300 ml 1200 ml 840 ml 120 ml 240 ml Balance 300 ml 1200 ml 840 ml 120 ml 240 ml Intake Oral 300 ml 1200 ml 840 ml 120 ml 240 ml # Voids 4 1 1 Objective Remarks GENERAL: Thin appearing man, paranoid schizophrenic SKIN: Warm and dry. HEAD: Normocephalic. EYES: No scleral icterus. No injection or drainage. NECK: Supple, trachea midline. No JVD or lymphadenopathy. CARDIOVASCULAR: Patient refused exam RESPIRATORY: Patient refused exam GASTROINTESTINAL: Patient refused exam EXTREMITIES: No cyanosis, or edema. NEUROLOGICAL: Awake, alert, confused, no focal deficits A/P Problem List: (1) Schizophrenia ICD Code: F20.9 - Schizophrenia Status: Acute Assessment and Plan Schizophrenia /paranoia He has been refusing most care offered to him He refused my visit again, did not let me in his room Hypertension Blood pressure remains elevated Patient is refusing multiple medications, attempt to continue home meds Clonidine as needed h/o A. fib with RVR Unable to be evaluated due to patient refusing exam DVT Prophylaxis Patient refuses Arsen Petersen MD Nov 28, 2017 10:28
--- NOTE | 2017-11-28 13:53 | HHI.PYPN ---
Subjective Remarks Patient seen for follow, chart reviewed. Discussion wishes to have born the patient has been taking her medication with much encouragement but continued to refuse to interact verbally with providers. Patient was found lying in hospital bed disheveled, noted to be yelling "go away... Get out of here from hallway prior to read or even approaching his room. Patient continued to!" Refused to interact and engage in interview today. Patient has not had any aggressive behavior since unit but has been yelling at times but redirectable. Review of Systems Except as stated in HPI: all other systems reviewed are Neg Mental Status Examination Appearance: Dirty, Disheveled Consciousness: Alert Orientation: Person Motor Activity: Abnormal gait Speech: Rapid, Other (loud) Language: Adequate Fund of Knowledge: Inadequate Memory: Impaired Mood: Angry Affect: Other (euphoric ) Thought Content: Bizarre thinking, Hallucinations, Delusional, Compulsive Hallucination Type: None Delusion Type: Paranoid Suicidal Ideation: No Suicidal Plan: No Suicidal Intention: No Homicidal Ideation: No Homicidal Plan: No Homicidal Intention: No Insight: Poor Judgment: Poor Results Vitals/IOs Vital Signs Date Time Temp Pulse Resp B/P (MAP) Pulse Ox O2 Delivery O2 Flow Rate FiO2 11/28/17 06:00 97.4 69 19 167/77 (107) 96 Intake and Output 11/28/17 11/28/17 11/29/17 08:00 16:00 00:00 Intake Total 120 ml 600 ml Balance 120 ml 600 ml Assessment & Plan Problem List: (1) Schizoaffective disorder, depressive type ICD Codes: F25.1 - Schizoaffective disorder, depressive type Status: Acute Assessment & Plan Patient continues to have irritability, refusing to engage in interview but is taking his treatment with much encouragement. Continue to monitor with behavior. Continue current treatment. Continue to encourage patient to maintain personal hygiene. We will order EKG and repeat labs continue monitoring. Discharge planning in progress. Justification for Cont. Inpt. At risk for further decompensation if at lower level of care Discharge Planning Back to [facility] when psychiatrically stable. Rashaad Guerra MD Nov 28, 2017 13:53
--- NOTE | 2017-11-28 15:00 | HHI.PYPN ---
Subjective Remarks I visited this patient to do a psychiatric evaluation for second opinion. But, the patient is noncooperative, very agitated, he stated that he doesn't want to talk, and repeatedly stating "get out of here, get out of here" Mental Status Examination Appearance: Dirty, Disheveled Consciousness: Alert Orientation: Person Motor Activity: Abnormal gait Speech: Rapid, Other (loud) Language: Adequate Fund of Knowledge: Inadequate Memory: Impaired Mood: Angry Affect: Other (euphoric ) Thought Content: Bizarre thinking, Hallucinations, Delusional, Compulsive Hallucination Type: None Delusion Type: Paranoid Suicidal Ideation: No Suicidal Plan: No Suicidal Intention: No Homicidal Ideation: No Homicidal Plan: No Homicidal Intention: No Insight: Poor Judgment: Poor Results Vitals/IOs Vital Signs Date Time Temp Pulse Resp B/P (MAP) Pulse Ox O2 Delivery O2 Flow Rate FiO2 11/28/17 06:00 97.4 69 19 167/77 (107) 96 Intake and Output 11/28/17 11/28/17 11/29/17 08:00 16:00 00:00 Intake Total 120 ml 600 ml Balance 120 ml 600 ml Assessment & Plan Problem List: (1) Schizoaffective disorder, depressive type ICD Codes: F25.1 - Schizoaffective disorder, depressive type Status: Acute Assessment & Plan Estimated LOS: days Justification for Cont. Inpt. I have seen and examined this patient, reviewed the documentation, discussed the patient personally with Dr. Guerra, I agree and concur with his assessment and plan. Wilver Valdivia MD Nov 28, 2017 15:00
[2017-11-28 18:44] VITALS: BP 201/119; TEMP 97.7; O2SAT 97
[2017-11-28] MEDS: cloNIDine HCL 0.1 MG TAB PO PRN (19:14)
[2017-11-28] MEDS: LORazepam 0.5 MG TAB PO PRN (19:14)
[2017-11-28 20:00] VITALS: BP 128/98; PULSE 82; RESP 16; TEMP 97.6; O2SAT 98
[2017-11-28] MEDS: REMOVE OLD NICODERM (NICOTINE) PATCH T-DERMAL SCH (21:00)
[2017-11-29 06:00] VITALS: BP 191/109; PULSE 75; RESP 18; TEMP 97.4; O2SAT 98
[2017-11-29] MEDS: DILTIAZEM HCL 30 MG TAB PO SCH ×5 (06:00→23:42)
--- NOTE | 2017-11-29 07:52 | HHI.PYPN ---
Subjective Remarks Patient seen for follow, chart reviewed. Discussion nursing staff reported the patient has not showered at the to be irritable and refusing to cooperate but is compliant with medications with encouragement. Patient continues to appear disheveled, irritable, refusing to engage in interview with movie writer's noted to be becoming increasingly agitated when continued to be depressed on 4 interview. Patient continues to report "get out of here, get out of here!" As per nursing report patient is somewhat redirectable with female staff and has been able to comply with treatment. Review of Systems Except as stated in HPI: all other systems reviewed are Neg Mental Status Examination Appearance: Dirty, Disheveled Consciousness: Alert Orientation: Person Motor Activity: Abnormal gait Speech: Rapid, Other (loud) Language: Adequate Fund of Knowledge: Inadequate Memory: Impaired Mood: Angry Affect: Other (euphoric ) Thought Content: Bizarre thinking, Hallucinations, Delusional, Compulsive Hallucination Type: None Delusion Type: Paranoid Suicidal Ideation: No Suicidal Plan: No Suicidal Intention: No Homicidal Ideation: No Homicidal Plan: No Homicidal Intention: No Insight: Poor Judgment: Poor Results Vitals/IOs Vital Signs Date Time Temp Pulse Resp B/P (MAP) Pulse Ox O2 Delivery O2 Flow Rate FiO2 11/29/17 06:00 97.4 75 18 191/109 (136) 98 Intake and Output 11/29/17 11/29/17 11/30/17 08:00 16:00 00:00 Intake Total 0 ml Balance 0 ml Assessment & Plan Problem List: (1) Schizoaffective disorder, depressive type ICD Codes: F25.1 - Schizoaffective disorder, depressive type Status: Acute Assessment & Plan Patient this time continues to be irritable bordering on agitation easily, uncooperative with interview and staff but is compliant with medications. We will increase Loxapine to 30 mg p.o. twice daily for psychosis. Continue to encourage adherence to treatment and improvement of hygiene. We will order EKG as well as labs for follow-up monitoring. Continue monitor mood and behavior. Continue recommendations as per prior medical team. Discharge planning in progress. Justification for Cont. Inpt. At risk for decompensation at lower level of care Discharge Planning Back to his residence when psychiatrically stable. Rashaad Guerra MD Nov 29, 2017 07:52
[2017-11-29] MEDS: NICOTINE 21 MG/24 HR PATCH T-DERMAL SCH (09:00)
[2017-11-29] MEDS: ASPIRIN EC 81 MG TABEC PO SCH (10:28)
[2017-11-29] MEDS: LOXAPINE 5 MG CAP PO SCH ×2 (10:28→21:35)
[2017-11-29] MEDS: METOPROLOL TARTRATE 25 MG TAB PO SCH ×2 (10:28→21:36)
--- NOTE | 2017-11-29 12:59 | HHI.PR ---
Subjective Remarks Patient saw me down the [address] today and shouted "go away!" before even got a chance to get to his doorway. Objective Vitals Vital Signs Date Time Temp Pulse Resp B/P (MAP) Pulse Ox O2 Delivery O2 Flow Rate FiO2 11/29/17 06:00 97.4 75 18 191/109 (136) 98 11/28/17 20:00 97.6 82 16 128/98 (108) 98 11/28/17 18:44 97.7 201/119 (146) 97 I/O 11/28/17 11/28/17 11/28/17 11/29/17 11/29/17 11/29/17 07:00 15:00 23:00 07:00 15:00 23:00 Intake Total 120 ml 600 ml 1320 ml 0 ml 720 ml Balance 120 ml 600 ml 1320 ml 0 ml 720 ml Intake Oral 120 ml 600 ml 1320 ml 0 ml 720 ml # Voids 1 0 0 Objective Remarks GENERAL: Thin appearing man, paranoid schizophrenic, uncooperative HEAD: Normocephalic. EYES: No scleral icterus. No injection or drainage. NECK: Supple, trachea midline. No JVD or lymphadenopathy. CARDIOVASCULAR: Patient refused exam RESPIRATORY: Patient refused exam GASTROINTESTINAL: Patient refused exam EXTREMITIES: No cyanosis, or edema. NEUROLOGICAL: Awake, alert, confused, no focal deficits A/P Problem List: (1) Schizophrenia ICD Code: F20.9 - Schizophrenia Status: Acute Assessment and Plan Schizophrenia /paranoia He has been refusing most care offered to him He refused my visit all 3 days of my service, refused to be examined. Hypertension Blood pressure under better control today Clonidine as needed h/o A. fib with RVR Unable to be evaluated due to patient refusing exam Heart rate is within normal limits today DVT Prophylaxis Patient refuses Arsen Petersen MD Nov 29, 2017 12:59
[2017-11-29] MEDS: REMOVE OLD NICODERM (NICOTINE) PATCH T-DERMAL SCH (20:30)
[2017-11-29] MEDS: LORazepam 0.5 MG TAB PO PRN (21:36)
[2017-11-30] MEDS: DILTIAZEM HCL 30 MG TAB PO SCH ×3 (05:51→16:44)
[2017-11-30 05:55] VITALS: BP 137/97; PULSE 68; RESP 19; TEMP 97.7; O2SAT 97
[2017-11-30] MEDS: ASPIRIN EC 81 MG TABEC PO SCH (07:56)
[2017-11-30] MEDS: METOPROLOL TARTRATE 25 MG TAB PO SCH (07:57)
[2017-11-30] MEDS: LOXAPINE 5 MG CAP PO SCH ×2 (07:57→20:18)
[2017-11-30] MEDS: NICOTINE 21 MG/24 HR PATCH T-DERMAL SCH (08:31)
--- NOTE | 2017-11-30 15:06 | HHI.PYPN ---
Subjective Remarks on psychiatric evaluation today the patient is uncooperative, he hide behind the door when I came to visit him, and he kept yelling "get out, get out, get out,". Despite of multiple redirections, the patient refused to talk to me. Mental Status Examination Appearance: Dirty, Disheveled Consciousness: Alert Orientation: Person Motor Activity: Abnormal gait Speech: Rapid, Other (loud) Language: Adequate Fund of Knowledge: Inadequate Memory: Impaired Mood: Angry Affect: Other (euphoric ) Thought Content: Bizarre thinking, Hallucinations, Delusional, Compulsive Hallucination Type: None Delusion Type: Paranoid Suicidal Ideation: No Suicidal Plan: No Suicidal Intention: No Homicidal Ideation: No Homicidal Plan: No Homicidal Intention: No Insight: Poor Judgment: Poor Results Vitals/IOs Vital Signs Date Time Temp Pulse Resp B/P (MAP) Pulse Ox O2 Delivery O2 Flow Rate FiO2 11/30/17 05:55 97.7 68 19 137/97 (110) 97 Intake and Output 11/30/17 11/30/17 12/01/17 08:00 16:00 00:00 Intake Total 240 ml Balance 240 ml Assessment & Plan Problem List: (1) Schizoaffective disorder, depressive type ICD Codes: F25.1 - Schizoaffective disorder, depressive type Status: Acute Assessment & Plan: Patient continues to be oppositional, refusing to talk with psychiatrist, noncompliant with medications. Assessment & Plan Estimated LOS: days Justification for Cont. Inpt. Patient needs to continue psychiatric hospitalization for stabilization. Wilver Valdivia MD Nov 30, 2017 15:06
--- NOTE | 2017-11-30 15:39 | HHI.PR ---
Subjective Remarks Pt briefly seen and examined as he only shouts "GO AWAY" and had to be held down in order for me to listen to his heart and lungs. Per nursing, can be combative. Vitals reviewed. Patient with consistently elevated BP. Objective Vital Signs Date Time Temp Pulse Resp B/P (MAP) Pulse Ox O2 Delivery O2 Flow Rate FiO2 11/30/17 05:55 97.7 68 19 137/97 (110) 97 I/O 11/29/17 11/29/17 11/29/17 11/30/17 11/30/17 11/30/17 07:00 15:00 23:00 07:00 15:00 23:00 Intake Total 0 ml 720 ml 2880 ml 0 ml 240 ml Balance 0 ml 720 ml 2880 ml 0 ml 240 ml Intake Oral 0 ml 720 ml 2880 ml 0 ml 240 ml # Voids 0 1 0 Objective Remarks GENERAL: Pale, disheveled male laying in bed. SKIN: Warm and dry. HEART: RRR no m/r/g. LUNGS: CTAB without wheezes or crackles. EXTREMITIES: No LE edema or calf tenderness. NEURO: Awake and alert. PSYCH: Guarded affect. Not cooperative. Yelling "GO AWAY" constantly. A/P Problem List: (1) Schizophrenia ICD Code: F20.9 - Schizophrenia Status: Acute (2) HTN (hypertension) ICD Code: I10 - Essential (primary) hypertension (3) Atrial fibrillation ICD Code: I48.91 - Unspecified atrial fibrillation Status: Acute Assessment and Plan 67-year-old male admitted to psychiatry for decompensated schizoaffective disorder. Hospitalist service consulted given history of A. fib RVR and uncontrolled HTN. Patient with history of noncompliance, refusal of care/ medications/telemetry/labs. Atrial fibrillation Pt in sinus rhythm with regular rate per my exam on 11/30 Continue cardizem Increase metoprolol given elevated BPs Hypertension Uncontrolled Increase metoprolol to 100 mg PO BID Follow blood pressures Adjust treatments as needed Paranoid schizophrenia Psychiatry following Patient is refusing treatments Nicotine dependence NicoDerm as needed Patient counseled to quit DVT prophylaxis LOUISAs Sandra Harrell MD Nov 30, 2017 15:39
[2017-11-30 18:13] VITALS: BP 164/64; PULSE 92; RESP 18; TEMP 98.5
[2017-11-30] MEDS: REMOVE OLD NICODERM (NICOTINE) PATCH T-DERMAL SCH (19:40)
[2017-11-30] MEDS: METOPROLOL TARTRATE 100 MG TAB PO SCH (20:18)
[2017-12-01] MEDS: DILTIAZEM HCL 30 MG TAB PO SCH ×4 (00:29→18:00)
[2017-12-01 06:15] VITALS: BP 157/90
[2017-12-01] MEDS: LOXAPINE 5 MG CAP PO SCH (09:00)
[2017-12-01] MEDS: NICOTINE 21 MG/24 HR PATCH T-DERMAL SCH (09:00)
[2017-12-01] MEDS: METOPROLOL TARTRATE 100 MG TAB PO SCH ×2 (09:14→20:39)
[2017-12-01] MEDS: ASPIRIN EC 81 MG TABEC PO SCH (09:14)
--- NOTE | 2017-12-01 09:37 | HHI.PYPN ---
Subjective Remarks Patient continues to be very reluctant to cooperate with psychiatric evaluation , oppositional, voicing go away, go away, go away even before I entered in his room. Today I may an extra effort establish a conversation with the patient, but I wasn't successful. Mental Status Examination Appearance: Dirty, Disheveled Consciousness: Alert Orientation: Person Motor Activity: Abnormal gait Speech: Rapid, Other (loud) Language: Adequate Fund of Knowledge: Inadequate Memory: Impaired Mood: Angry Affect: Other (euphoric ) Thought Content: Bizarre thinking, Hallucinations, Delusional, Compulsive Hallucination Type: None Delusion Type: Paranoid Suicidal Ideation: No Suicidal Plan: No Suicidal Intention: No Homicidal Ideation: No Homicidal Plan: No Homicidal Intention: No Insight: Poor Judgment: Poor Results Vitals/IOs Vital Signs Date Time Temp Pulse Resp B/P (MAP) Pulse Ox O2 Delivery O2 Flow Rate FiO2 12/01/17 06:15 157/90 (112) 11/30/17 18:13 98.5 92 18 11/30/17 05:55 97 Intake and Output 12/01/17 12/01/17 12/02/17 08:00 16:00 00:00 Intake Total 340 ml Balance 340 ml Assessment & Plan Problem List: (1) Schizoaffective disorder, depressive type ICD Codes: F25.1 - Schizoaffective disorder, depressive type Status: Acute Assessment & Plan Estimated LOS: days Justification for Cont. Inpt. Patient continues to be acutely psychotic, he needs to continue psychiatric hospitalization for stabilization. Wilver Valdivia MD Dec 01, 2017 09:37
--- NOTE | 2017-12-01 10:48 | HHI.PR ---
Subjective Remarks Pt briefly seen because he shouts "GO AWAY" and per nursing, can be combative. Vitals reviewed. BP still elevated but slightly better. Doesn't allow me to examine him. Objective Vital Signs Date Time Temp Pulse Resp B/P (MAP) Pulse Ox O2 Delivery O2 Flow Rate FiO2 12/01/17 06:15 157/90 (112) 11/30/17 18:13 98.5 92 18 164/64 (97) I/O 11/30/17 11/30/17 11/30/17 12/01/17 12/01/17 12/01/17 07:00 15:00 23:00 07:00 15:00 23:00 Intake Total 0 ml 240 ml 1560 ml 340 ml Balance 0 ml 240 ml 1560 ml 340 ml Intake Oral 0 ml 240 ml 1560 ml 340 ml # Voids 0 3 3 # Bowel Movements 0 0 Objective Remarks GENERAL: Pale, disheveled male laying in bed. NEURO: Awake and alert. PSYCH: Guarded affect. Not cooperative. Yelling "GO AWAY" constantly. A/P Problem List: (1) Schizophrenia ICD Code: F20.9 - Schizophrenia Status: Acute (2) HTN (hypertension) ICD Code: I10 - Essential (primary) hypertension (3) Atrial fibrillation ICD Code: I48.91 - Unspecified atrial fibrillation Status: Acute Assessment and Plan 67-year-old male admitted to psychiatry for decompensated schizoaffective disorder. Hospitalist service consulted given history of A. fib RVR and uncontrolled HTN. Patient with history of noncompliance, refusal of care/ medications/telemetry/labs. Atrial fibrillation Pt in sinus rhythm with regular rate per exam on 11/30 Continue Cardizem and metoprolol Hypertension Uncontrolled Increased metoprolol to 100 mg PO BID yesterday, will evaluate response over next day Follow blood pressures Adjust treatments as needed Paranoid schizophrenia Psychiatry following Patient is refusing treatments Nicotine dependence NicoDerm as needed DVT prophylaxis SCDs Sandra Harrell MD Dec 01, 2017 10:48
[2017-12-01 18:05] VITALS: BP 155/96; PULSE 88; RESP 16; TEMP 98.7; O2SAT 98
[2017-12-01] MEDS: REMOVE OLD NICODERM (NICOTINE) PATCH T-DERMAL SCH (20:42)
[2017-12-02] MEDS: DILTIAZEM HCL 30 MG TAB PO SCH ×4 (00:52→17:36)
[2017-12-02 05:03] VITALS: BP 120/61; PULSE 67; RESP 17; TEMP 98.5; O2SAT 95
[2017-12-02] MEDS: NICOTINE 21 MG/24 HR PATCH T-DERMAL SCH (09:00)
[2017-12-02] MEDS: METOPROLOL TARTRATE 100 MG TAB PO SCH ×2 (09:40→22:25)
[2017-12-02] MEDS: ASPIRIN EC 81 MG TABEC PO SCH (09:40)
--- NOTE | 2017-12-02 16:20 | HHI.PYPN ---
Subjective Remarks Reviewed electronic medical record, labs, and discussed patient with staff. Follow-up evaluation performed in patient's room with the nurse present. Patient lying on bed in a state of disarray. Patient's appearance is disheveled. His speech is clear. I was unable to evaluate this patient. His only response was "go away". He refused to answer questions or cooperate in any way. He refuses to take prescribed medications or to comply with staff. Mental Status Examination Appearance: Dirty, Disheveled Consciousness: Alert Orientation: Person Motor Activity: Abnormal gait Speech: Rapid, Other (loud) Language: Adequate Fund of Knowledge: Inadequate Memory: Impaired Mood: Angry Affect: Other (euphoric ) Thought Content: Bizarre thinking, Hallucinations, Delusional, Compulsive Hallucination Type: None Delusion Type: Paranoid Suicidal Ideation: No Suicidal Plan: No Suicidal Intention: No Homicidal Ideation: No Homicidal Plan: No Homicidal Intention: No Insight: Poor Judgment: Poor Results Vitals/IOs Vital Signs Date Time Temp Pulse Resp B/P (MAP) Pulse Ox O2 Delivery O2 Flow Rate FiO2 12/02/17 05:03 98.5 67 17 120/61 (80) 95 Intake and Output 12/02/17 12/02/17 12/03/17 08:00 16:00 00:00 Intake Total 240 ml 120 ml Balance 240 ml 120 ml Assessment & Plan Problem List: (1) Schizoaffective disorder, depressive type ICD Codes: F25.1 - Schizoaffective disorder, depressive type Status: Acute Assessment & Plan Estimated LOS: Patient is noncompliant with treatment, unable to obtain an accurate assessment. Patient will be presented at [facility] on at which time it is my hope that he will be appointed a guardian and we will be able to medicate him appropriately. Justification for Cont. Inpt. Removing this patient to a lower level of care at this time would likely result in decompensation. Emily Vasquez Dec 02, 2017 16:20
--- NOTE | 2017-12-02 16:44 | HHI.PR ---
Subjective Remarks Patient seen this afternoon. Patient shouting go away. Refuses exam. Appears comfortable. disCussed with nursing. Patient is eating and drinking. Objective Vital Signs Date Time Temp Pulse Resp B/P (MAP) Pulse Ox O2 Delivery O2 Flow Rate FiO2 12/02/17 05:03 98.5 67 17 120/61 (80) 95 12/01/17 18:05 98.7 88 16 155/96 (115) 98 I/O 12/01/17 12/01/17 12/01/17 12/02/17 12/02/17 12/02/17 07:00 15:00 23:00 07:00 15:00 23:00 Intake Total 340 ml 120 ml 480 ml 240 ml 120 ml Balance 340 ml 120 ml 480 ml 240 ml 120 ml Intake Oral 340 ml 120 ml 480 ml 240 ml 120 ml # Voids 3 2 1 1 # Bowel Movements 0 Objective Remarks P refusing exam atient tells me to go away. A/P Assessment and Plan 67-year-old male admitted to psychiatry for decompensated schizoaffective disorder. Hospitalist service consulted given history of A. fib RVR and uncontrolled HTN. Patient with history of noncompliance, refusal of care/ medications/telemetry/labs. //Atrial fibrillation Pt in sinus rhythm with regular rate per exam on 11/30 Continue Cardizem and metoprolol = Heart rate controlled on metoprolol. Continue. //Hypertension Uncontrolled Increased metoprolol to 100 mg PO BID yesterday, will evaluate response over next day Follow blood pressures Adjust treatments as needed = Blood pressure acceptable. Continue current regimen. //Paranoid schizophrenia Psychiatry following Patient is refusing treatments //Nicotine dependence NicoDerm as needed //DVT prophylaxis SCDs Discharge Planning We will continue to follow. Patient continues to eat and drink per nursing. Would recommend checking repeat labs on after [facility] or if patient agrees. Domo Loyola MD Dec 02, 2017 16:44
[2017-12-02] MEDS ORDERED: THIAMINE HCL 100 MG TAB PO ONE (16:45)
[2017-12-02 18:08] VITALS: BP 127/87; PULSE 74; RESP 16; TEMP 98; O2SAT 98
[2017-12-02] MEDS: REMOVE OLD NICODERM (NICOTINE) PATCH T-DERMAL SCH (21:00)
[2017-12-03] MEDS: DILTIAZEM HCL 30 MG TAB PO SCH ×4 (00:13→17:38)
[2017-12-03 06:00] VITALS: BP 140/81; PULSE 58; RESP 16; TEMP 97.4; O2SAT 97
[2017-12-03] MEDS: NICOTINE 21 MG/24 HR PATCH T-DERMAL SCH (09:00)
[2017-12-03] MEDS: THIAMINE HCL 100 MG TAB PO SCH (10:02)
[2017-12-03] MEDS: METOPROLOL TARTRATE 100 MG TAB PO SCH ×2 (10:02→21:59)
[2017-12-03] MEDS: ASPIRIN EC 81 MG TABEC PO SCH (10:02)
--- NOTE | 2017-12-03 12:19 | HHI.PYPN ---
Subjective Remarks Reviewed EMR and discussed patient with staff. Staff reports that he was compliant with his medications this morning.Conducted follow-up in patient's room. Patient found lying in bed yelling "go away" as soon as room is approached. Patient has noticeable tremors of his hands. He reports that he resides in [place] in a private residence. Denies pain. Oriented to month and year. Denies SI, HI, auditory or visual hallucinations. All questions were answered in between shouts of "get out", "go away" and "leave me alone". Unable to obtain any further information from patient. Mental Status Examination Appearance: Disheveled Consciousness: Alert Orientation: Person, Date/Time Motor Activity: Abnormal gait Speech: Rapid, Other (loud) Language: Adequate Fund of Knowledge: Inadequate Memory: Impaired Mood: Angry, Irritable Affect: Anxious Thought Process & Associations: Other (unable to assess) Thought Content: Other (unable to assess) Hallucination Type: None (denies) Delusion Type: None (denies), Paranoid Suicidal Ideation: No Suicidal Plan: No Suicidal Intention: No Homicidal Ideation: No Homicidal Plan: No Homicidal Intention: No Insight: Poor Judgment: Poor Results Vitals/IOs Vital Signs Date Time Temp Pulse Resp B/P (MAP) Pulse Ox O2 Delivery O2 Flow Rate FiO2 12/03/17 06:00 97.4 58 16 140/81 (100) 97 Intake and Output 12/03/17 12/03/17 12/04/17 08:00 16:00 00:00 Intake Total 360 ml Balance 360 ml Assessment & Plan Problem List: (1) Schizoaffective disorder, depressive type ICD Codes: F25.1 - Schizoaffective disorder, depressive type Status: Acute Assessment & Plan Estimated LOS: Assessment remains difficult at best to accomplish. Patient continues to refuse with care and acts bizarre shouting at providers/staff to "get out". Unable to medicate patient with psychotropic medications at this time due to his lack of capacity and lack of a guardian. POA is under investigation by [facility] for misappropriating patient's funds. Order submitted for referral to [facility]. Justification for Cont. Inpt. Moving this patient to a lower level of care will result in decompensation. Emily Vasquez Dec 03, 2017 12:19
[2017-12-03] MEDS ORDERED: HALOPERIDOL LACTATE 5 MG/ML AMP ONE (16:24)
[2017-12-03] MEDS ORDERED: diphenhydrAMINE HCL 50 MG/ML VIAL ONE (16:24)
--- NOTE | 2017-12-03 16:35 | HHI.PR ---
Subjective Remarks Patient seen today around 11 AM. Tells me to get out of the room. He refuses exam. Discussed with nurses. Patient is eating and drinking. Took meds this morning. Objective Vital Signs Date Time Temp Pulse Resp B/P (MAP) Pulse Ox O2 Delivery O2 Flow Rate FiO2 12/03/17 06:00 97.4 58 16 140/81 (100) 97 12/02/17 18:08 98.0 74 16 127/87 (100) 98 I/O 12/02/17 12/02/17 12/02/17 12/03/17 12/03/17 12/03/17 07:00 15:00 23:00 07:00 15:00 23:00 Intake Total 240 ml 120 ml 840 ml 360 ml Balance 240 ml 120 ml 840 ml 360 ml Intake Oral 240 ml 120 ml 840 ml 360 ml # Voids 1 1 1 Objective Remarks P refusing exam patient tells me to go away. No change A/P Assessment and Plan 67-year-old male admitted to psychiatry for decompensated schizoaffective disorder. Hospitalist service consulted given history of A. fib RVR and uncontrolled HTN. Patient with history of noncompliance, refusal of care/ medications/telemetry/labs. //Atrial fibrillation Pt in sinus rhythm with regular rate per exam on 11/30 Continue Cardizem and metoprolol = Heart rate controlled on metoprolol. Continue. //Hypertension Uncontrolled Increased metoprolol to 100 mg PO BID yesterday, will evaluate response over next day Follow blood pressures Adjust treatments as needed = Blood pressure acceptable. Continue current regimen. //Paranoid schizophrenia Psychiatry following Patient is refusing treatments //Nicotine dependence NicoDerm as needed //DVT prophylaxis SCDs Discharge Planning We will continue to follow. Patient continues to eat and drink per nursing. Would recommend checking repeat labs on after [facility] or if patient agrees. Domo Loyola MD Dec 03, 2017 16:35
[2017-12-03] MEDS ORDERED: HALOPERIDOL LACTATE 5 MG/ML AMP IM ONE (16:45)
[2017-12-03] MEDS ORDERED: diphenhydrAMINE HCL 50 MG/ML VIAL IM ONE (16:45)
[2017-12-03] MEDS ORDERED: LORazepam 2 MG/ML VIAL IM ONE (16:45)
[2017-12-03] MEDS: REMOVE OLD NICODERM (NICOTINE) PATCH T-DERMAL SCH (19:31)
[2017-12-04 05:38] VITALS: BP 171/105; PULSE 86; RESP 18; TEMP 97.7; O2SAT 98
[2017-12-04] MEDS: DILTIAZEM HCL 30 MG TAB PO SCH ×5 (05:56→20:40)
[2017-12-04 06:00] VITALS: BP 171/105; PULSE 86; RESP 18; TEMP 97.7; O2SAT 97
[2017-12-04] MEDS: ASPIRIN EC 81 MG TABEC PO SCH (08:31)
[2017-12-04] MEDS: NICOTINE 21 MG/24 HR PATCH T-DERMAL SCH (08:32)
[2017-12-04] MEDS: METOPROLOL TARTRATE 100 MG TAB PO SCH ×2 (08:32→20:40)
[2017-12-04] MEDS: THIAMINE HCL 100 MG TAB PO SCH (08:32)
[2017-12-04] MEDS ORDERED: OLANZapine IM 10 MG VIAL IM ONE ×2 (11:51→12:00)
--- NOTE | 2017-12-04 13:00 | HHI.PYPN ---
Subjective Remarks Patient was seen today for psychiatric reevaluation. Patient continues to be very oppositional, poorly engageable in a conversation, once I get inside the room the patient start screaming go away, go away, go away. He also says that he wants to be discharged. However, when I ask him where he is going to be discharged and how does he feel he goes back to to go away, go away, go away. Review of Systems Except as stated in HPI: all other systems reviewed are Neg Mental Status Examination Appearance: Disheveled Consciousness: Alert Orientation: Person, Date/Time Motor Activity: Abnormal gait Speech: Rapid, Other (loud) Language: Adequate Fund of Knowledge: Inadequate Memory: Impaired Mood: Angry, Irritable Affect: Anxious Thought Process & Associations: Other (unable to assess) Thought Content: Other (unable to assess) Hallucination Type: None (denies) Delusion Type: None (denies), Paranoid Suicidal Ideation: No Suicidal Plan: No Suicidal Intention: No Homicidal Ideation: No Homicidal Plan: No Homicidal Intention: No Insight: Poor Judgment: Poor Results Vitals/IOs Vital Signs Date Time Temp Pulse Resp B/P (MAP) Pulse Ox O2 Delivery O2 Flow Rate FiO2 12/04/17 06:00 97.7 86 18 171/105 (127) 97 Intake and Output 12/04/17 12/04/17 12/05/17 08:00 16:00 00:00 Intake Total 360 ml 120 ml Balance 360 ml 120 ml Assessment & Plan Problem List: (1) Schizoaffective disorder, depressive type ICD Codes: F25.1 - Schizoaffective disorder, depressive type Status: Acute Assessment & Plan: The patient is not taking his medication selectively, mostly not taking any psychotropics. Continues to be very resistant, oppositional very angry non cooperative. Assessment & Plan Estimated LOS: days Justification for Cont. Inpt. Patient is acutely psychotic, he needs to stay hospitalized for stabilization and safety. Wilver Valdivia MD Dec 04, 2017 13:00
--- NOTE | 2017-12-04 15:10 | PD.TTN ---
Patient Problems 1. Discharge planning 2. Medication compliance 3. Knowledge deficit 4. Lack of coping skills Progress Toward Goals Provider Present: Dr. Gasper Guerra Provider Input: 12/04/2017; patient remain agitated, noncompliant with treatment and medication Nurse(s) Present: RN Nurse(s) Input: 12/04/2017; patient require redirection and coaching with all needs Psychiatric Counselors Present: BERT Bond Psych Therapist Input: 12/04/2017; counselor has contact DCF regarding placement concerns, patient's current SSI payee has been notified as well and patient is schedule for [facility] on 12/05/2017 Group Spec/RT/OT/DEL CID Present: Dragan Graham OT Group Spec/RT/OT/DEL CID Input: 12/04/2017 patient lacks insight or ability to appropriately attend groups or activities Documentation Scribe: Mónica Davenport Teaching Recipient: Patient Mónica Davenport Dec 04, 2017 15:10
--- NOTE | 2017-12-04 17:04 | HHI.PR ---
Subjective Remarks Follow-up on patient with atrial fibrillation, hypertension, paranoid schizophrenia. Attempted to see patient. As I walk in the door patient yells "Go away" and "Get out of the room". Discussed with nursing staff, patient refusing all of his medications. Objective Vitals Vital Signs Date Time Temp Pulse Resp B/P (MAP) Pulse Ox O2 Delivery O2 Flow Rate FiO2 12/04/17 06:00 97.7 86 18 171/105 (127) 97 12/04/17 05:38 97.7 86 18 171/105 (127) 98 I/O 12/03/17 12/03/17 12/03/17 12/04/17 12/04/17 12/04/17 07:00 15:00 23:00 07:00 15:00 23:00 Intake Total 360 ml 480 ml 960 ml Balance 360 ml 480 ml 960 ml Intake Oral 360 ml 480 ml 960 ml # Voids 1 3 2 Objective Remarks Patient refuses examination. Medications and IVs Current Medications Medications (Trade) Dose Ordered Sig/Mesha Route Start Time Stop Time Status Last Admin (Ecotrin Ec) 81 mg DAILY PO 11/27/17 09:00 12/03/17 10:02 (Cardizem) 30 mg Q6HR PO 11/27/17 00:00 12/04/17 00:00 (Ativan) 0.5 mg Q12H PRN PO 11/26/17 20:45 11/29/17 21:36 (Ativan Inj) 0.5 mg Q12H PRN IM 11/26/17 20:45 (Tylenol) 650 mg Q4H PRN PO 11/26/17 20:45 (Milk Of Magnesia Liq) 30 ml DAILY PRN PO 11/26/17 20:45 (Mag-Al Plus Susp Liq) 30 ml Q6H PRN PO 11/26/17 20:45 (Habitrol 21 Mg Patch.24 Hr) 1 patch DAILY T-DERMAL 11/27/17 09:00 Miscellaneous Information 1 HS T-DERMAL 11/26/17 21:00 (Catapres) 0.1 mg Q8H PRN PO 11/28/17 18:30 11/28/17 19:14 (Loxitane) 30 mg BID PO 11/29/17 09:00 Future hold 11/30/17 20:18 (Lopressor) 100 mg Q12HR PO 11/30/17 21:00 12/03/17 21:59 (Vitamin B1) 100 mg DAILY PO 12/03/17 09:00 12/03/17 10:02 A/P Problem List: (1) Schizophrenia ICD Code: F20.9 - Schizophrenia Status: Acute Assessment and Plan 67-year-old male admitted to psychiatry for decompensated schizoaffective disorder. Hospitalist service consulted given history of A. fib RVR and uncontrolled HTN. Patient with history of noncompliance, refusal of care/ medications/telemetry/labs. //Atrial fibrillation Pt in sinus rhythm with regular rate per exam on 11/30 Continue Cardizem and metoprolol - patient refusing all medications HR currently 86 //Hypertension Uncontrolled due to medication noncompliance Clonidine prn with parameters //Paranoid schizophrenia Psychiatry following Patient is refusing treatments //Nicotine dependence NicoDerm as needed //DVT prophylaxis SCDs Due to patients psychosis, unable to examine patient. He is refusing all medications. Will sign off for now. Please reconsult when patients is more amenable to evaluation and treatment. Hyacinth Esteban Dec 04, 2017 17:04
[2017-12-04] MEDS: LORazepam 0.5 MG TAB PO PRN (20:40)
[2017-12-04] MEDS: REMOVE OLD NICODERM (NICOTINE) PATCH T-DERMAL SCH (20:41)
[2017-12-05] MEDS: DILTIAZEM HCL 30 MG TAB PO SCH ×3 (05:39→18:31)
[2017-12-05 05:45] VITALS: BP 158/77; PULSE 95; RESP 16; TEMP 97.3; O2SAT 95
[2017-12-05 06:49] LABS: AUTOMATED NEUTROPHIL # 2.2 TH/MM3 (1.8-7.7); BASOPHIL # 0.1 TH/MM3 (0-0.2); BASOPHIL % 1.4 % (0.0-2.0); EOSINOPHIL # 0.2 TH/MM3 (0-0.4); EOSINOPHIL % 2.9 % (0.0-4.0); HEMATOCRIT 41.6 % (39.0-51.0); HEMOGLOBIN 14.2 GM/DL (13.0-17.0); LYMPH % 44.8 % (9.0-44.0); LYMPHOCYTE # 2.4 TH/MM3 (1.0-4.8); MEAN CELL VOLUME 89.1 FL (80.0-100.0); MEAN CORPUSCULAR HEMOGLOBIN 30.4 PG (27.0-34.0); MEAN CORPUSCULAR HGB CONC 34.1 % (32.0-36.0); MEAN PLATELET VOLUME 10.6 FL (7.0-11.0); MONO % 9.7 % (0.0-8.0); MONOCYTE # 0.5 TH/MM3 (0-0.9); NEUT % 41.2 % (16.0-70.0); PLATELET COUNT 125 TH/MM3 (150-450); RED BLOOD COUNT 4.67 MIL/MM3 (4.50-5.90); RED CELL DISTRIBUTION WIDTH 14.2 % (11.6-17.2); WHITE BLOOD COUNT 5.4 TH/MM3 (4.0-11.0)
[2017-12-05 07:04] LABS: ALBUMIN 3.1 GM/DL (3.4-5.0); BICARBONATE 27.9 MEQ/L (21.0-32.0); CALCIUM 8.9 MG/DL (8.5-10.1); CREATININE 1.25 MG/DL (0.60-1.30); DIRECT BILIRUBIN ADULT 0.1 MG/DL (0.0-0.2)
[2017-12-05 07:08] LABS: INDIRECT BILIRUBIN 0.2 MG/DL (0.0-0.8); TOTAL BILIRUBIN ADULT 0.3 MG/DL (0.2-1.0); TOTAL PROTEIN 6.1 GM/DL (6.4-8.2)
[2017-12-05] MEDS: ASPIRIN EC 81 MG TABEC PO SCH (09:03)
[2017-12-05] MEDS: METOPROLOL TARTRATE 100 MG TAB PO SCH ×2 (09:04→20:17)
[2017-12-05] MEDS: THIAMINE HCL 100 MG TAB PO SCH (09:04)
[2017-12-05] MEDS: NICOTINE 21 MG/24 HR PATCH T-DERMAL SCH (09:04)
[2017-12-05] MEDS: LORazepam 0.5 MG TAB PO PRN (09:04)
[2017-12-05 09:23] VITALS: BP 158/77; PULSE 73; RESP 16; TEMP 97.3; O2SAT 95
--- NOTE | 2017-12-05 11:56 | HHI.PYPN ---
Subjective Remarks Patient was seen today for psychiatric reevaluation. No changes in his oppositional behavior, once he saw me he is started to voice go away, go away. His case was presented in court today, Faizan determined that he would stay in the hospital until he is stabilized and a safe discharge is coordinated. Mental Status Examination Appearance: Disheveled Consciousness: Alert Orientation: Person, Date/Time Motor Activity: Abnormal gait Speech: Rapid, Other (loud) Language: Adequate Fund of Knowledge: Inadequate Memory: Impaired Mood: Angry, Irritable Affect: Anxious Thought Process & Associations: Other (unable to assess) Thought Content: Other (unable to assess) Hallucination Type: None (denies) Delusion Type: None (denies), Paranoid Suicidal Ideation: No Suicidal Plan: No Suicidal Intention: No Homicidal Ideation: No Homicidal Plan: No Homicidal Intention: No Insight: Poor Judgment: Poor Results Labs Test 12/05/17 06:29 White Blood Count 5.4 TH/MM3 Red Blood Count 4.67 MIL/MM3 Hemoglobin 14.2 GM/DL Hematocrit 41.6 % Mean Corpuscular Volume 89.1 FL Mean Corpuscular Hemoglobin 30.4 PG Mean Corpuscular Hemoglobin Concent 34.1 % Red Cell Distribution Width 14.2 % Platelet Count 125 TH/MM3 Mean Platelet Volume 10.6 FL Neutrophils (%) (Auto) 41.2 % Lymphocytes (%) (Auto) 44.8 % Monocytes (%) (Auto) 9.7 % Eosinophils (%) (Auto) 2.9 % Basophils (%) (Auto) 1.4 % Neutrophils # (Auto) 2.2 TH/MM3 Lymphocytes # (Auto) 2.4 TH/MM3 Monocytes # (Auto) 0.5 TH/MM3 Eosinophils # (Auto) 0.2 TH/MM3 Basophils # (Auto) 0.1 TH/MM3 CBC Comment DIFF FINAL Differential Comment Blood Urea Nitrogen 21 MG/DL Creatinine 1.25 MG/DL Random Glucose 89 MG/DL Total Protein 6.1 GM/DL Albumin 3.1 GM/DL Calcium Level 8.9 MG/DL Alkaline Phosphatase 71 U/L Aspartate Amino Transf (AST/SGOT) 19 U/L Alanine Aminotransferase (ALT/SGPT) 21 U/L Total Bilirubin 0.3 MG/DL Direct Bilirubin 0.1 MG/DL Sodium Level 144 MEQ/L Potassium Level 4.0 MEQ/L Chloride Level 109 MEQ/L Carbon Dioxide Level 27.9 MEQ/L Anion Gap 7 MEQ/L Estimat Glomerular Filtration Rate 58 ML/MIN Lactic Acid Level 1.1 mmol/L Indirect Bilirubin 0.2 MG/DL Total Creatine Kinase 148 U/L Vitals/IOs Vital Signs Date Time Temp Pulse Resp B/P (MAP) Pulse Ox O2 Delivery O2 Flow Rate FiO2 12/05/17 09:23 97.3 73 16 158/77 (104) 95 Intake and Output 12/05/17 12/05/17 12/06/17 08:00 16:00 00:00 Intake Total 720 ml 360 ml Balance 720 ml 360 ml Assessment & Plan Problem List: (1) Schizoaffective disorder, depressive type ICD Codes: F25.1 - Schizoaffective disorder, depressive type Status: Acute Assessment & Plan Estimated LOS: days Justification for Cont. Inpt. Patient will continue psychiatric hospitalization for stabilization. Wilver Valdivia MD Dec 05, 2017 11:56
[2017-12-05] MEDS: cloNIDine HCL 0.1 MG TAB PO PRN (16:18)
[2017-12-05 17:59] VITALS: BP 178/110; PULSE 96; RESP 18; TEMP 99.1; O2SAT 98
[2017-12-05] MEDS: REMOVE OLD NICODERM (NICOTINE) PATCH T-DERMAL SCH (21:00)
[2017-12-06] MEDS: DILTIAZEM HCL 30 MG TAB PO SCH ×5 (02:42→23:50)
[2017-12-06 07:09] VITALS: BP 119/60; PULSE 58; RESP 15; TEMP 97.8; O2SAT 94
[2017-12-06] MEDS: NICOTINE 21 MG/24 HR PATCH T-DERMAL SCH (09:00)
[2017-12-06] MEDS: METOPROLOL TARTRATE 100 MG TAB PO SCH ×2 (09:00→21:27)
[2017-12-06] MEDS: THIAMINE HCL 100 MG TAB PO SCH ×2 (09:00→09:02)
[2017-12-06] MEDS: ASPIRIN EC 81 MG TABEC PO SCH ×2 (09:00→09:02)
[2017-12-06] MEDS ORDERED: LORazepam 2 MG/ML VIAL IM PRN (10:45)
[2017-12-06] MEDS ORDERED: ZIPRASIDONE HCL 20 MG CAP PO SCH (10:45)
[2017-12-06] MEDS ORDERED: ZIPRASIDONE MESYLATE 20 MG VIAL IM PRN ×2 (10:45→16:15)
--- NOTE | 2017-12-06 14:32 | HHI.PYPN ---
Subjective Remarks Evaluated medical record discussed patient with staff. Patient remains dysphoric and oppositional. He was found lying in bed, as soon as anyone approaches his room he shouts out "go away". Patient refuses to answer any questions and continues to reply with "go away". Attempted to reach the [facility] product representative multiple times today, Katie Conner at without success. Patient will be medicated once consent is obtained. Mental Status Examination Appearance: Disheveled Consciousness: Alert Orientation: Person, Date/Time Motor Activity: Abnormal gait Speech: Rapid, Other (loud) Language: Adequate Fund of Knowledge: Inadequate Memory: Impaired Mood: Angry, Irritable Affect: Anxious Thought Process & Associations: Other (unable to assess) Thought Content: Other (unable to assess) Hallucination Type: None (denies) Delusion Type: None (denies), Paranoid Suicidal Ideation: No Suicidal Plan: No Suicidal Intention: No Homicidal Ideation: No Homicidal Plan: No Homicidal Intention: No Insight: Poor Judgment: Poor Results Vitals/IOs Vital Signs Date Time Temp Pulse Resp B/P (MAP) Pulse Ox O2 Delivery O2 Flow Rate FiO2 12/06/17 07:09 97.8 58 15 119/60 (89) 94 Assessment & Plan Problem List: (1) Schizoaffective disorder, depressive type ICD Codes: F25.1 - Schizoaffective disorder, depressive type Status: Acute Assessment & Plan Estimated LOS: Patient remains dysphoric and oppositional. We have thus far been unable to medicate him due to the need for signed consent. Attempting to reach his an [facility] product representative in order to obtain the consent. Justification for Cont. Inpt. Moving this patient to a lower level of care would likely result in decompensation. It appears at this time that he is unable to provide self-care or contract for safety. Emily Vasquez Dec 06, 2017 14:32
[2017-12-06] MEDS: REMOVE OLD NICODERM (NICOTINE) PATCH T-DERMAL SCH (21:00)
[2017-12-06] MEDS: ZIPRASIDONE HCL 20 MG CAP PO SCH (21:00)
[2017-12-06 21:20] VITALS: BP 163/105; PULSE 93; RESP 22
[2017-12-07 06:10] VITALS: BP 180/100; PULSE 95; RESP 17; TEMP 97.5
[2017-12-07] MEDS: DILTIAZEM HCL 30 MG TAB PO SCH ×3 (06:12→17:35)
[2017-12-07] MEDS: ZIPRASIDONE HCL 20 MG CAP PO SCH ×2 (08:30→20:41)
[2017-12-07] MEDS: THIAMINE HCL 100 MG TAB PO SCH (08:30)
[2017-12-07] MEDS: METOPROLOL TARTRATE 100 MG TAB PO SCH ×2 (08:30→20:41)
[2017-12-07] MEDS: ASPIRIN EC 81 MG TABEC PO SCH (08:30)
[2017-12-07] MEDS: NICOTINE 21 MG/24 HR PATCH T-DERMAL SCH (08:31)
--- NOTE | 2017-12-07 11:27 | HHI.PYPN ---
Subjective Remarks Pt seen and discussed with staff. Pt was irritable and paranoid during medication administration this morning but was compliant with medications. He has been less loud and intrusive. he has been verbally threatening but has not been physically aggressive. He refuses to engage in interview and demands that MD and RN leave room. Mental Status Examination Appearance: Disheveled Consciousness: Alert Orientation: Person, Date/Time Motor Activity: Abnormal gait Speech: Unremarkable Language: Adequate Fund of Knowledge: Inadequate Memory: Impaired Mood: Angry, Irritable Affect: Blunt, Anxious Thought Process & Associations: Disorganized Thought Content: Delusional Hallucination Type: Other (appears to be responding to internal stimuli) Delusion Type: Paranoid Suicidal Ideation: No Suicidal Plan: No Suicidal Intention: No Homicidal Ideation: No Homicidal Plan: No Homicidal Intention: No Insight: Poor Judgment: Poor Results Vitals/IOs Vital Signs Date Time Temp Pulse Resp B/P (MAP) Pulse Ox O2 Delivery O2 Flow Rate FiO2 12/07/17 06:10 97.5 95 17 180/100 (126) 12/06/17 07:09 94 Assessment & Plan Problem List: (1) Schizoaffective disorder, depressive type ICD Codes: F25.1 - Schizoaffective disorder, depressive type Status: Acute Assessment & Plan Continue current tx plan. Estimated LOS: days Justification for Cont. Inpt. impairments in reality testing Ashley Damon MD Dec 07, 2017 11:27
[2017-12-07 12:15] VITALS: BP 160/95; PULSE 73
[2017-12-07] MEDS: LORazepam 0.5 MG TAB PO PRN (16:17)
[2017-12-07 18:03] VITALS: BP 146/106; PULSE 62; RESP 18; TEMP 98; O2SAT 97
[2017-12-07] MEDS: REMOVE OLD NICODERM (NICOTINE) PATCH T-DERMAL SCH (20:41)
[2017-12-08] MEDS: DILTIAZEM HCL 30 MG TAB PO SCH ×5 (05:47→23:31)
[2017-12-08 05:55] VITALS: BP 162/75; PULSE 53; RESP 16; TEMP 97.4; O2SAT 93
[2017-12-08 08:11] VITALS: PULSE 64
[2017-12-08] MEDS: NICOTINE 21 MG/24 HR PATCH T-DERMAL SCH (09:00)
[2017-12-08] MEDS: THIAMINE HCL 100 MG TAB PO SCH (09:17)
[2017-12-08] MEDS: ZIPRASIDONE HCL 20 MG CAP PO SCH ×2 (09:17→20:07)
[2017-12-08] MEDS: METOPROLOL TARTRATE 100 MG TAB PO SCH ×2 (09:17→20:07)
[2017-12-08] MEDS: LORazepam 0.5 MG TAB PO PRN (09:17)
[2017-12-08] MEDS: ASPIRIN EC 81 MG TABEC PO SCH (09:17)
[2017-12-08 12:43] VITALS: BP 170/101; PULSE 94
--- NOTE | 2017-12-08 16:31 | HHI.PYPN ---
Subjective Remarks Pt seen and discussed with staff. He remains paranoid and hypervigilant. He is suspicious of medications and tried to spit them out, but did comply with RN encouragement.He refuses interview when approached, yelling "GO AWAY!" Mental Status Examination Appearance: Disheveled Consciousness: Alert Orientation: Person, Date/Time Motor Activity: Abnormal gait Speech: Unremarkable Language: Adequate Fund of Knowledge: Inadequate Memory: Impaired Mood: Angry, Irritable Affect: Blunt, Anxious Thought Process & Associations: Disorganized Thought Content: Delusional Hallucination Type: Other (appears to be responding to internal stimuli) Delusion Type: Paranoid Suicidal Ideation: No Suicidal Plan: No Suicidal Intention: No Homicidal Ideation: No Homicidal Plan: No Homicidal Intention: No Insight: Poor Judgment: Poor Results Vitals/IOs Vital Signs Date Time Temp Pulse Resp B/P (MAP) Pulse Ox O2 Delivery O2 Flow Rate FiO2 12/08/17 12:43 94 170/101 (124) 12/08/17 05:55 97.4 16 93 Intake and Output 12/08/17 12/08/17 12/09/17 08:00 16:00 00:00 Intake Total 240 ml 240 ml Balance 240 ml 240 ml Assessment & Plan Problem List: (1) Schizoaffective disorder, depressive type ICD Codes: F25.1 - Schizoaffective disorder, depressive type Status: Acute Assessment & Plan Continue current tx plan. Estimated LOS: days Justification for Cont. Inpt. psychosis Ashley Damon MD Dec 08, 2017 16:31
[2017-12-08 18:09] VITALS: BP 156/99; PULSE 85; RESP 18; TEMP 98; O2SAT 98
[2017-12-08] MEDS: REMOVE OLD NICODERM (NICOTINE) PATCH T-DERMAL SCH (20:07)
[2017-12-09] MEDS: DILTIAZEM HCL 30 MG TAB PO SCH ×3 (05:32→16:41)
[2017-12-09 05:41] VITALS: BP 168/93; PULSE 72; RESP 17; TEMP 97.8; O2SAT 95
[2017-12-09] MEDS: LORazepam 0.5 MG TAB PO PRN (09:00)
[2017-12-09] MEDS: ZIPRASIDONE HCL 40 MG CAP PO SCH ×2 (09:00→16:41)
[2017-12-09] MEDS: THIAMINE HCL 100 MG TAB PO SCH (09:00)
[2017-12-09] MEDS: NICOTINE 21 MG/24 HR PATCH T-DERMAL SCH (09:00)
[2017-12-09] MEDS: METOPROLOL TARTRATE 100 MG TAB PO SCH ×2 (09:00→20:33)
[2017-12-09] MEDS: ASPIRIN EC 81 MG TABEC PO SCH (09:00)
--- NOTE | 2017-12-09 13:05 | HHI.PYPN ---
Subjective Remarks Reviewed electronic medical record and discussed case with staff. Per documentation patient continued with his same irascible behavior over the weekend. He continues to yell "go away" whenever anyone approaches or enters his room. Staff reports that they were able to medicate him, although he did try to pouch the medication on Saturday. There are no motor abnormalities noted, and no reported side effects from the medication. Therefore, the dose has been increased today. Mental Status Examination Appearance: Disheveled Consciousness: Alert Orientation: Person, Date/Time Motor Activity: Abnormal gait Speech: Unremarkable Language: Adequate Fund of Knowledge: Inadequate Memory: Impaired Mood: Angry, Irritable Affect: Blunt, Anxious Thought Process & Associations: Disorganized Thought Content: Delusional Hallucination Type: Other (appears to be responding to internal stimuli) Delusion Type: Paranoid Suicidal Ideation: No Suicidal Plan: No Suicidal Intention: No Homicidal Ideation: No Homicidal Plan: No Homicidal Intention: No Insight: Poor Judgment: Poor Results Vitals/IOs Vital Signs Date Time Temp Pulse Resp B/P (MAP) Pulse Ox O2 Delivery O2 Flow Rate FiO2 12/09/17 05:41 97.8 72 17 168/93 (118) 95 Intake and Output 12/09/17 12/09/17 12/10/17 08:00 16:00 00:00 Intake Total 240 ml Balance 240 ml Assessment & Plan Problem List: (1) Schizoaffective disorder, depressive type ICD Codes: F25.1 - Schizoaffective disorder, depressive type Status: Acute Assessment & Plan Estimated LOS: Patient continues with behaviors. Medication being adjusted in attempt to reach psychiatric stabilization. Discharge planning in progress. Justification for Cont. Inpt. Moving patient to a lower level of care at this time would likely result in decompensation. Emily Vasquez Dec 09, 2017 13:05
[2017-12-09 18:16] VITALS: BP 129/90; PULSE 71; RESP 18; TEMP 98; O2SAT 94
[2017-12-09] MEDS: REMOVE OLD NICODERM (NICOTINE) PATCH T-DERMAL SCH (21:00)
[2017-12-10] MEDS: DILTIAZEM HCL 30 MG TAB PO SCH ×4 (05:38→18:52)
[2017-12-10 06:00] VITALS: BP 140/65; PULSE 65; RESP 16; TEMP 97.9; O2SAT 93
[2017-12-10] MEDS: METOPROLOL TARTRATE 100 MG TAB PO SCH ×2 (09:00→19:53)
[2017-12-10] MEDS: ASPIRIN EC 81 MG TABEC PO SCH (09:00)
[2017-12-10] MEDS: THIAMINE HCL 100 MG TAB PO SCH (09:00)
[2017-12-10] MEDS: ZIPRASIDONE HCL 40 MG CAP PO SCH ×2 (09:00→18:52)
[2017-12-10] MEDS: NICOTINE 21 MG/24 HR PATCH T-DERMAL SCH (09:00)
--- NOTE | 2017-12-10 16:31 | HHI.PYPN ---
Subjective Remarks Reviewed electronic medical record and I discussed case with staff. Patient continues to be oppositional and noncompliant with staff. Refusing medications. Follow-up was conducted in patient's room with him lying on the bed. He is alert, however he continues to yell "go away". Patient's medication dosage will be increased tomorrow. Mental Status Examination Appearance: Disheveled Consciousness: Alert Orientation: Person, Date/Time Motor Activity: Abnormal gait Speech: Unremarkable Language: Adequate Fund of Knowledge: Inadequate Memory: Impaired Mood: Angry, Irritable Affect: Blunt, Anxious Thought Process & Associations: Disorganized Thought Content: Delusional Hallucination Type: Other (appears to be responding to internal stimuli) Delusion Type: Paranoid Suicidal Ideation: No Suicidal Plan: No Suicidal Intention: No Homicidal Ideation: No Homicidal Plan: No Homicidal Intention: No Insight: Poor Judgment: Poor Results Vitals/IOs Vital Signs Date Time Temp Pulse Resp B/P (MAP) Pulse Ox O2 Delivery O2 Flow Rate FiO2 12/10/17 06:00 97.9 65 16 140/65 (90) 93 Intake and Output 12/10/17 12/10/17 12/11/17 08:00 16:00 00:00 Intake Total 120 ml Balance 120 ml Assessment & Plan Problem List: (1) Schizoaffective disorder, depressive type ICD Codes: F25.1 - Schizoaffective disorder, depressive type Status: Acute Assessment & Plan Estimated LOS: Patient has shown no improvement from admission. He lacks capacity to care for himself. We will continue to work on medication adjustment. Justification for Cont. Inpt. Moving this patient to a lower level of care would result in decompensation. Emily Vasquez Dec 10, 2017 16:31
[2017-12-10 19:45] VITALS: BP 140/82; PULSE 84; RESP 20
[2017-12-10] MEDS: LORazepam 0.5 MG TAB PO PRN (19:53)
[2017-12-10] MEDS: REMOVE OLD NICODERM (NICOTINE) PATCH T-DERMAL SCH (20:01)
[2017-12-11] MEDS: DILTIAZEM HCL 30 MG TAB PO SCH ×4 (05:15→18:35)
[2017-12-11 05:35] VITALS: BP 147/74; PULSE 60; RESP 18; TEMP 98.3; O2SAT 98
[2017-12-11] MEDS: THIAMINE HCL 100 MG TAB PO SCH (09:00)
[2017-12-11] MEDS: NICOTINE 21 MG/24 HR PATCH T-DERMAL SCH (09:00)
[2017-12-11] MEDS: ZIPRASIDONE HCL 40 MG CAP PO SCH (09:00)
[2017-12-11] MEDS: ASPIRIN EC 81 MG TABEC PO SCH (09:00)
[2017-12-11] MEDS: METOPROLOL TARTRATE 100 MG TAB PO SCH ×2 (09:00→20:50)
--- NOTE | 2017-12-11 09:59 | PD.TTN ---
Patient Problems 1. Discharge planning 2. Medication compliance 3. Knowledge deficit 4. Lack of coping skills Progress Toward Goals Provider Present: Dr. Gasper Guerra Provider Input: 12/11/2017: State Order written by ANDRÉS Patterson, application given to counselor 12/11/2017; patient has minimum improvement, medication adjustment 12/09/2017: Discussed possible state application will be required; patient's only shows minimum progress 12/04/2017; patient remain agitated, noncompliant with treatment and medication Nurse(s) Present: Elly RN Nurse(s) Input: 12/11/2017; patient requires redirection with medication, very anxious and agitated, patient is compliant with meals 12/09/17: Patient comes out for meals, and refuses medication, difficult to redirect 12/04/2017; patient require redirection and coaching with all needs Psychiatric Counselors Present: BERT Bond Psych Therapist Input: 12/11/2013; patient contiues with the same behavior towards staff and counselor even when redirected, counselor will complete State package 12/09/2017; patient is anxious and easily agitated refuses to engage with staff or this counselor 12/04/2017; counselor has contact DCF regarding placement concerns, patient's current SSI payee has been notified as well and patient is schedule for [place] [facility] on 12/05/2017 Group Spec/RT/OT/DEL CID Present: Dragan Graham OT Group Spec/RT/OT/DEL CID Input: 12/11/2017: Patient is easily overwhelmed refuses to participate 12/09/2017: patient lacks insight or ability to participate with activities or groups 12/04/2017 patient lacks insight or ability to appropriately attend groups or activities Documentation Scribe: Mónica Davenport Teaching Recipient: Patient IssacMónica [facility] Dec 11, 2017 09:59
--- NOTE | 2017-12-11 10:40 | HHI.PYPN ---
Subjective Remarks Patient seen for follow, chart reviewed. Discussion nursing staff reported patient had been taking medication with much encouragement and was somewhat agitated last night and received Ativan 1. Patient was found doorway of his room and when signwriter greeted him patient stated "drop !" Patient was later seen in hallway and was approached by signwriter and nurse to provide for his medications which patient continued to be somewhat irritable stating get away and turned around stating and I want medications and attempted to squat the medication out of the hands as a nurse and was recently apologetic stating " okay okay I will take my medications". Patient did take his medications this morning with no further behavioral disturbances. Review of Systems Except as stated in HPI: all other systems reviewed are Neg Mental Status Examination Appearance: Disheveled Consciousness: Alert Orientation: Person, Date/Time Motor Activity: Abnormal gait Speech: Unremarkable Language: Adequate Fund of Knowledge: Inadequate Memory: Impaired Mood: Angry, Irritable Affect: Irritable, Blunt Thought Process & Associations: Disorganized Thought Content: Delusional Hallucination Type: Other (appears to be responding to internal stimuli) Delusion Type: Paranoid Suicidal Ideation: No Suicidal Plan: No Suicidal Intention: No Homicidal Ideation: No Homicidal Plan: No Homicidal Intention: No Insight: Poor Judgment: Poor Results Vitals/IOs Vital Signs Date Time Temp Pulse Resp B/P (MAP) Pulse Ox O2 Delivery O2 Flow Rate FiO2 12/11/17 05:35 98.3 60 18 147/74 (98) 98 Intake and Output 12/11/17 12/11/17 12/12/17 08:00 16:00 00:00 Intake Total 240 ml Balance 240 ml Assessment & Plan Problem List: (1) Schizoaffective disorder, depressive type ICD Codes: F25.1 - Schizoaffective disorder, depressive type Status: Acute Assessment & Plan Patient this time continues a very portables control, irritable, responding to internal stimuli but has been noted to be out of his room more, out for meals and has a compliant with treatment most of the time with encouragement. We will increase ziprasidone to 60 mg p.o. twice daily for psychosis, continue rest of medications. We will order EKG to get baseline QTc interval this patient is a psychotropics. Continue to monitor for orthostatic hypotension as well as EPS. Continue to monitor mood and behavior. Discharge planning in progress. Justification for Cont. Inpt. At risk of further decompensation at lower level of care Discharge Planning To be determined Rashaad Guerra MD Dec 11, 2017 10:40
[2017-12-11 18:07] VITALS: BP 156/70; PULSE 79; RESP 18; TEMP 97.1; O2SAT 99
[2017-12-11] MEDS: ZIPRASIDONE HCL 60 MG CAP PO SCH (18:35)
[2017-12-11] MEDS: REMOVE OLD NICODERM (NICOTINE) PATCH T-DERMAL SCH (20:51)
[2017-12-12 04:39] VITALS: BP 196/107; PULSE 78; RESP 15; TEMP 97.7; O2SAT 100
[2017-12-12] MEDS: DILTIAZEM HCL 30 MG TAB PO SCH ×4 (05:58→17:42)
[2017-12-12] MEDS: cloNIDine HCL 0.1 MG TAB PO PRN ×2 (07:44→17:42)
[2017-12-12] MEDS: ASPIRIN EC 81 MG TABEC PO SCH (08:41)
[2017-12-12] MEDS: ZIPRASIDONE HCL 60 MG CAP PO SCH ×2 (08:41→17:42)
[2017-12-12] MEDS: NICOTINE 21 MG/24 HR PATCH T-DERMAL SCH (08:42)
[2017-12-12] MEDS: METOPROLOL TARTRATE 100 MG TAB PO SCH ×2 (08:42→20:47)
[2017-12-12] MEDS: THIAMINE HCL 100 MG TAB PO SCH (08:42)
--- NOTE | 2017-12-12 10:51 | HHI.PYPN ---
Subjective Remarks Patient seen for follow, chart reviewed. Discussion nursing staff reported the patient at times as exit seeking focused on discharge and suspicion the patient may be cheeking medications at times but continues with paranoid ideations and hypervigilant. Patient was found sitting hospital bed continues to be hypervigilant, paranoid and dismissive with sign writer letterer or painter stating "go away!" But with less intensity with yelling, noted to be slightly less agitated. He continued to be disheveled but is participating in meals and the unit. Outside of his room more and ambulating in the hallway. Review of Systems Except as stated in HPI: all other systems reviewed are Neg Mental Status Examination Appearance: Disheveled Consciousness: Alert Orientation: Person, Date/Time Motor Activity: Abnormal gait Speech: Unremarkable Language: Adequate Fund of Knowledge: Inadequate Memory: Impaired Mood: Angry, Irritable Affect: Irritable, Blunt Thought Process & Associations: Disorganized Thought Content: Delusional Hallucination Type: Other (appears to be responding to internal stimuli) Delusion Type: Paranoid Suicidal Ideation: No Suicidal Plan: No Suicidal Intention: No Homicidal Ideation: No Homicidal Plan: No Homicidal Intention: No Insight: Poor Judgment: Poor Results Vitals/IOs Vital Signs Date Time Temp Pulse Resp B/P (MAP) Pulse Ox O2 Delivery O2 Flow Rate FiO2 12/12/17 04:39 97.7 78 15 196/107 (136) 100 Assessment & Plan Problem List: (1) Schizoaffective disorder, depressive type ICD Codes: F25.1 - Schizoaffective disorder, depressive type Status: Acute Assessment & Plan Patient continue with paranoia, hypervigilance, with marked irritability refusing to engage in interview with sign writer letterer or painter and staff but is mostly compliant with treatment although there is concern the patient may be cheeking medications. We will order mouth checks. Ziprasidone was initially increased to 60 mg p.o. twice daily, we will continue current dose for now with upper titration as needed for psychosis. Continue current medications, continue to monitor mood and behavior. Continue to encourage patient to participate any adequate personal hygiene. Discharge planning in progress Justification for Cont. Inpt. At risk for decompensation at lower level of care Discharge Planning [facility] referral Rashaad Guerra MD Dec 12, 2017 10:51
[2017-12-12 11:00] VITALS: BP 141/77; PULSE 82
[2017-12-12 18:05] VITALS: BP 181/109; PULSE 82; RESP 18; TEMP 98.7; O2SAT 100
[2017-12-12] MEDS: REMOVE OLD NICODERM (NICOTINE) PATCH T-DERMAL SCH (20:59)
[2017-12-13] MEDS: DILTIAZEM HCL 30 MG TAB PO SCH ×4 (00:40→17:11)
[2017-12-13 06:18] VITALS: BP 131/63; PULSE 57; RESP 16; TEMP 97.2
[2017-12-13] MEDS: NICOTINE 21 MG/24 HR PATCH T-DERMAL SCH (09:00)
[2017-12-13] MEDS: ASPIRIN EC 81 MG TABEC PO SCH (09:16)
[2017-12-13] MEDS: THIAMINE HCL 100 MG TAB PO SCH (09:16)
[2017-12-13] MEDS: ZIPRASIDONE HCL 60 MG CAP PO SCH ×2 (09:16→17:11)
[2017-12-13] MEDS: METOPROLOL TARTRATE 100 MG TAB PO SCH ×2 (09:16→21:00)
[2017-12-13 12:08] VITALS: BP 140/77; PULSE 81
--- NOTE | 2017-12-13 16:46 | HHI.PYPN ---
Subjective Remarks Patient seen for follow, chart reviewed. Discussion nursing staff reported the patient noted to be slightly more approachable, compliant with medications and shower today. Patient was found ambulating on the unit and when approached patient continues to be dismissive stating "drop .. Get out... I want to talk to you... Get out!" The patient continued to be dismissive noted with less irritability less agitation. Review of Systems Except as stated in HPI: all other systems reviewed are Neg Mental Status Examination Appearance: Disheveled Consciousness: Alert Orientation: Person, Date/Time Motor Activity: Abnormal gait Speech: Unremarkable Language: Adequate Fund of Knowledge: Inadequate Memory: Impaired Mood: Angry, Irritable Affect: Irritable, Blunt Thought Process & Associations: Disorganized Thought Content: Delusional Hallucination Type: Other (appears to be responding to internal stimuli) Delusion Type: Paranoid Suicidal Ideation: No Suicidal Plan: No Suicidal Intention: No Homicidal Ideation: No Homicidal Plan: No Homicidal Intention: No Insight: Poor Judgment: Poor Results Vitals/IOs Vital Signs Date Time Temp Pulse Resp B/P (MAP) Pulse Ox O2 Delivery O2 Flow Rate FiO2 12/13/17 12:08 81 140/77 (98) 12/13/17 06:18 97.2 16 12/12/17 18:05 100 Intake and Output 12/13/17 12/13/17 12/14/17 08:00 16:00 00:00 Intake Total 100 ml 60 ml Balance 100 ml 60 ml Assessment & Plan Problem List: (1) Schizoaffective disorder, depressive type ICD Codes: F25.1 - Schizoaffective disorder, depressive type Status: Acute Assessment & Plan Patient this time continues with irritability, refusing to engage in interview but is noted to be less isolative, started to care for self hygiene now, compliant with treatment and noted to be more engaging with nursing staff when provided medications. We will continue current regimen, continue monitor mood and behavior. Discharge planning in progress. Justification for Cont. Inpt. At risk of further decompensation at lower level of care Discharge Planning To be determined Rashaad Guerra MD Dec 13, 2017 16:46
[2017-12-13 18:07] VITALS: BP 157/87; PULSE 64; RESP 18; TEMP 98.2; O2SAT 99
[2017-12-13] MEDS: REMOVE OLD NICODERM (NICOTINE) PATCH T-DERMAL SCH (21:00)
[2017-12-14] MEDS: DILTIAZEM HCL 30 MG TAB PO SCH ×4 (00:53→18:02)
[2017-12-14 06:39] VITALS: BP 155/87; PULSE 65; RESP 17; TEMP 97.3; O2SAT 98
[2017-12-14] MEDS: ZIPRASIDONE HCL 60 MG CAP PO SCH ×2 (08:32→18:02)
[2017-12-14] MEDS: ASPIRIN EC 81 MG TABEC PO SCH (08:32)
[2017-12-14] MEDS: THIAMINE HCL 100 MG TAB PO SCH (08:32)
[2017-12-14] MEDS: METOPROLOL TARTRATE 100 MG TAB PO SCH ×2 (08:32→20:24)
[2017-12-14] MEDS: NICOTINE 21 MG/24 HR PATCH T-DERMAL SCH (08:33)
--- NOTE | 2017-12-14 18:00 | HHI.PYPN ---
Subjective Remarks Patient was seen and case discussed with nursing. Patient refuses the interview telling me to leave the room. Per nursing, he has been irritable and somewhat entitled. Insight is quite poor. Seclusive to self Mental Status Examination Appearance: Disheveled Consciousness: Alert Orientation: Person, Date/Time Motor Activity: Abnormal gait Speech: Unremarkable Language: Adequate Fund of Knowledge: Inadequate Memory: Impaired Mood: Angry, Irritable Affect: Irritable, Blunt Thought Process & Associations: Disorganized Thought Content: Delusional Hallucination Type: Other (appears to be responding to internal stimuli) Delusion Type: Paranoid Suicidal Ideation: No Suicidal Plan: No Suicidal Intention: No Homicidal Ideation: No Homicidal Plan: No Homicidal Intention: No Insight: Poor Judgment: Poor Results Vitals/IOs Vital Signs Date Time Temp Pulse Resp B/P (MAP) Pulse Ox O2 Delivery O2 Flow Rate FiO2 12/14/17 06:39 97.3 65 17 155/87 (109) 98 Intake and Output 12/14/17 12/14/17 12/15/17 08:00 16:00 00:00 Intake Total 480 ml 600 ml Balance 480 ml 600 ml Assessment & Plan Problem List: (1) Schizoaffective disorder, depressive type ICD Codes: F25.1 - Schizoaffective disorder, depressive type Status: Acute Assessment & Plan Continue current treatment plan Justification for Cont. Inpt. Patient would decompensate in a less restrictive setting Kurt Garcia DO Dec 14, 2017 18:00
[2017-12-14 18:12] VITALS: BP 164/81; PULSE 80; RESP 17; TEMP 97.1; O2SAT 98
[2017-12-14] MEDS: REMOVE OLD NICODERM (NICOTINE) PATCH T-DERMAL SCH (21:00)
[2017-12-15] MEDS: DILTIAZEM HCL 30 MG TAB PO SCH ×5 (00:22→17:59)
[2017-12-15] MEDS: cloNIDine HCL 0.1 MG TAB PO PRN (05:24)
[2017-12-15 05:33] VITALS: BP 176/112; PULSE 74; RESP 18; TEMP 97.9; O2SAT 97
[2017-12-15] MEDS: ZIPRASIDONE HCL 60 MG CAP PO SCH ×2 (08:31→17:59)
[2017-12-15] MEDS: METOPROLOL TARTRATE 100 MG TAB PO SCH ×2 (08:31→21:00)
[2017-12-15] MEDS: THIAMINE HCL 100 MG TAB PO SCH (08:31)
[2017-12-15] MEDS: ASPIRIN EC 81 MG TABEC PO SCH (08:31)
[2017-12-15] MEDS: NICOTINE 21 MG/24 HR PATCH T-DERMAL SCH (08:31)
--- NOTE | 2017-12-15 13:05 | HHI.PYPN ---
Subjective Remarks Patient was seen and case discussed with nursing. Patient refuses the exam today. Stating loudly go away, refusing to answer questions. He seclusive to his room, only coming out for meals. He is compliant with medications Mental Status Examination Appearance: Disheveled Consciousness: Alert Orientation: Person, Date/Time Motor Activity: Abnormal gait Speech: Unremarkable Language: Adequate Fund of Knowledge: Inadequate Memory: Impaired Mood: Angry, Irritable Affect: Irritable, Blunt Thought Process & Associations: Disorganized Thought Content: Delusional Hallucination Type: Other (appears to be responding to internal stimuli) Delusion Type: Paranoid Suicidal Ideation: No Suicidal Plan: No Suicidal Intention: No Homicidal Ideation: No Homicidal Plan: No Homicidal Intention: No Insight: Poor Judgment: Poor Results Vitals/IOs Vital Signs Date Time Temp Pulse Resp B/P (MAP) Pulse Ox O2 Delivery O2 Flow Rate FiO2 12/15/17 05:33 97.9 74 18 176/112 (133) 97 Intake and Output 12/15/17 12/15/17 12/16/17 08:00 16:00 00:00 Intake Total 60 ml Balance 60 ml Assessment & Plan Problem List: (1) Schizoaffective disorder, depressive type ICD Codes: F25.1 - Schizoaffective disorder, depressive type Status: Acute Assessment & Plan Continue current treatment plan Justification for Cont. Inpt. Patient would decompensate in a less restrictive setting Kurt Garcia DO Dec 15, 2017 13:05
[2017-12-15 15:52] VITALS: BP 147/76; PULSE 76; RESP 17; TEMP 97.1; O2SAT 98
[2017-12-15] MEDS: REMOVE OLD NICODERM (NICOTINE) PATCH T-DERMAL SCH (21:00)
[2017-12-15] MEDS: LORazepam 0.5 MG TAB PO PRN (23:03)
[2017-12-16 05:34] VITALS: BP 148/89; PULSE 76; RESP 17; TEMP 97.5; O2SAT 98
[2017-12-16] MEDS: DILTIAZEM HCL 30 MG TAB PO SCH ×4 (05:48→18:00)
[2017-12-16] MEDS: NICOTINE 21 MG/24 HR PATCH T-DERMAL SCH (09:00)
[2017-12-16] MEDS: METOPROLOL TARTRATE 100 MG TAB PO SCH ×2 (09:20→20:55)
[2017-12-16] MEDS: ZIPRASIDONE HCL 60 MG CAP PO SCH (09:20)
[2017-12-16] MEDS: THIAMINE HCL 100 MG TAB PO SCH (09:20)
[2017-12-16] MEDS: ASPIRIN EC 81 MG TABEC PO SCH (09:20)
[2017-12-16 15:12] VITALS: BP 166/98; PULSE 107
--- NOTE | 2017-12-16 17:20 | HHI.PYPN ---
Subjective Remarks Patient seen for follow, chart reviewed. Discussion nursing staff reported the patient has a compliant medications did have 1 episode of emesis this morning. Patient was found sitting in hospital bed noted to be less irritable and willing to engage in interview for the first time today with life insurance underwriter. Patient states he want to be able to be discharged and states that he is planning to go live with his power of manager machine Mr. Jeremie Walters and Viviane Wilcox. Patient states he did not want return back to his assisted living facility where he was living before. Patient was unwilling to review medications, mood, any other topic aside from speaking about discharge. Once patient got frustrated about speaking about other topics patient reverted back to telling life insurance underwriter "go away, dropped ". Review of Systems Except as stated in HPI: all other systems reviewed are Neg Mental Status Examination Appearance: Disheveled Consciousness: Alert Orientation: Person, Date/Time Motor Activity: Abnormal gait Speech: Unremarkable Language: Adequate Fund of Knowledge: Inadequate Memory: Impaired Mood: Angry, Irritable Affect: Irritable, Blunt Thought Process & Associations: Disorganized (Slightly less today.) Thought Content: Preoccupations (With discharge), Delusional Hallucination Type: Other (appears to be responding to internal stimuli) Delusion Type: Paranoid Suicidal Ideation: No Suicidal Plan: No Suicidal Intention: No Homicidal Ideation: No Homicidal Plan: No Homicidal Intention: No Insight: Poor Judgment: Poor Results Vitals/IOs Vital Signs Date Time Temp Pulse Resp B/P (MAP) Pulse Ox O2 Delivery O2 Flow Rate FiO2 12/16/17 15:12 107 166/98 (120) 12/16/17 05:34 97.5 17 98 Intake and Output 12/16/17 12/16/17 12/17/17 08:00 16:00 00:00 Intake Total 240 ml 120 ml Balance 240 ml 120 ml Assessment & Plan Problem List: (1) Schizoaffective disorder, depressive type ICD Codes: F25.1 - Schizoaffective disorder, depressive type Status: Acute Assessment & Plan Patient noted to have less irritability was able to engage more interview today. Patient focused on discharge but unwilling to engage in interview about symptoms. We will continue to titrate ziprasidone to 80 mg p.o. twice daily for psychosis. We will order EKG again as patient has been refusing to monitor QTc interval. Continue rest of medications. Continue recommendations as per prior medical team. Discharge planning in progress. Justification for Cont. Inpt. At risk of further decompensation at lower level of care. Discharge Planning To be determined Rashaad Guerra MD Dec 16, 2017 17:20
[2017-12-16 17:37] VITALS: BP 149/86; PULSE 80; RESP 16; TEMP 98.1; O2SAT 98
[2017-12-16] MEDS: ZIPRASIDONE HCL 80 MG CAP PO SCH (18:00)
[2017-12-16] MEDS: REMOVE OLD NICODERM (NICOTINE) PATCH T-DERMAL SCH (21:00)
[2017-12-17] MEDS: DILTIAZEM HCL 30 MG TAB PO SCH ×4 (00:44→18:00)
[2017-12-17 00:58] VITALS: BP 148/67; PULSE 65
[2017-12-17 06:24] VITALS: BP 155/84; PULSE 77; RESP 18; TEMP 98.3; O2SAT 95
--- NOTE | 2017-12-17 08:45 | EKG ---
Date Performed: 12/16/2017 Time Performed: 18:24:59 PTAGE: 67 years EKG: ATRIAL FIBRILLATION T-WAVE ABNORMALITY, CONSIDER LATERAL ISCHEMIA ABNORMAL ECG PREVIOUS TRACING : 11/25/2017 06.52 Compared to previous tracing, heart rate has decreased, lat eral T wave inversion is now more pronounced. DOCTOR: Diego Rueda Interpretating Date/Time 12/17/2017 08:36:28
[2017-12-17] MEDS: NICOTINE 21 MG/24 HR PATCH T-DERMAL SCH (09:00)
[2017-12-17] MEDS: ZIPRASIDONE HCL 80 MG CAP PO SCH ×2 (09:21→18:00)
[2017-12-17] MEDS: THIAMINE HCL 100 MG TAB PO SCH (09:21)
[2017-12-17] MEDS: METOPROLOL TARTRATE 100 MG TAB PO SCH ×2 (09:21→21:13)
[2017-12-17] MEDS: ASPIRIN EC 81 MG TABEC PO SCH (09:21)
[2017-12-17 11:15] VITALS: BP 144/70; PULSE 65
--- NOTE | 2017-12-17 14:00 | HHI.PYPN ---
Subjective Remarks Patient is here for follow, chart reviewed. Discussion nursing staff reported patient was able to tolerate EKG and has been compliant with medications. Patient was found sitting among other peers to be calm but dismissive and unwilling to engage in interview. Patient continues to have irritability but not aggressive behavior. Patient states "go away, get out of here". Patient has a compliant with treatment. Review of Systems Except as stated in HPI: all other systems reviewed are Neg Mental Status Examination Appearance: Disheveled Consciousness: Alert Orientation: Person, Date/Time Motor Activity: Abnormal gait Speech: Unremarkable Language: Adequate Fund of Knowledge: Inadequate Memory: Impaired Mood: Angry, Irritable Affect: Irritable, Blunt Thought Process & Associations: Disorganized (Slightly less today.) Thought Content: Preoccupations (With discharge), Delusional Hallucination Type: Other (appears to be responding to internal stimuli) Delusion Type: Paranoid Suicidal Ideation: No Suicidal Plan: No Suicidal Intention: No Homicidal Ideation: No Homicidal Plan: No Homicidal Intention: No Insight: Poor Judgment: Poor Results Vitals/IOs Vital Signs Date Time Temp Pulse Resp B/P (MAP) Pulse Ox O2 Delivery O2 Flow Rate FiO2 12/17/17 11:15 65 144/70 (94) 12/17/17 06:24 98.3 18 95 Intake and Output 12/17/17 12/17/17 12/18/17 08:00 16:00 00:00 Intake Total 120 ml Balance 120 ml Assessment & Plan Problem List: (1) Schizoaffective disorder, depressive type ICD Codes: F25.1 - Schizoaffective disorder, depressive type Status: Acute Assessment & Plan Patient continues to have irritability, refusing to engage in interview but has been compliant with treatment and focused on discharge. We will continue current treatment. Continue monitor with behavior. EKG reviewed which showed patient with atrial fibrillation but is already on rate control medications as per prior medical team. Patient does not have prolonged QTc interval, continue with ziprasidone 80 mg p.o. twice daily for psychosis. Continue to encourage patient to participate in groups and activities. Discharge planning in progress. Justification for Cont. Inpt. At risk for decompensation at lower level of care. Discharge Planning Patient referred to [facility]. Rashaad Guerra MD Dec 17, 2017 14:00
[2017-12-17 17:20] VITALS: PULSE 90; RESP 18; O2SAT 97
[2017-12-17] MEDS: REMOVE OLD NICODERM (NICOTINE) PATCH T-DERMAL SCH (21:00)
[2017-12-18] MEDS: DILTIAZEM HCL 30 MG TAB PO SCH ×4 (01:37→17:41)
[2017-12-18 05:42] VITALS: BP 160/82; PULSE 68
[2017-12-18] MEDS: LORazepam 0.5 MG TAB PO PRN (06:07)
[2017-12-18] MEDS: ASPIRIN EC 81 MG TABEC PO SCH (09:00)
[2017-12-18] MEDS: THIAMINE HCL 100 MG TAB PO SCH (09:00)
[2017-12-18] MEDS: ZIPRASIDONE HCL 80 MG CAP PO SCH ×2 (09:00→18:00)
[2017-12-18] MEDS: METOPROLOL TARTRATE 100 MG TAB PO SCH ×2 (09:00→18:11)
[2017-12-18] MEDS: NICOTINE 21 MG/24 HR PATCH T-DERMAL SCH (09:00)
--- NOTE | 2017-12-18 13:38 | PD.TTN ---
Patient Problems 1. Discharge planning 2. Medication compliance 3. Knowledge deficit 4. Lack of coping skills Progress Toward Goals Provider Present: Dr. Gasper Guerra Provider Input: 12/16/2017: patient medication is being adjusted to counter out his behavior 12/11/2017: State Order written by ANDRÉS Patterson, application given to counselor 12/11/2017; patient has minimum improvement, medication adjustment 12/09/2017: Discussed possible state application will be required; patient's only shows minimum progress 12/04/2017; patient remain agitated, noncompliant with treatment and medication Nurse(s) Present: ANDREY Cronin Nurse(s) Input: 12/16/2017: patient is more visible on the unit, eating meals and taking his medication 12/11/2017; patient requires redirection with medication, very anxious and agitated, patient is compliant with meals 12/09/17: Patient comes out for meals, and refuses medication, difficult to redirect 12/04/2017; patient require redirection and coaching with all needs Psychiatric Counselors Present: BERT Bond Psych Therapist Input: 12/16/2017; counselor will encourage patient with behavior/mood 12/11/2013; patient contiues with the same behavior towards staff and counselor even when redirected, counselor will complete State package 12/09/2017; patient is anxious and easily agitated refuses to engage with staff or this counselor 12/04/2017; counselor has contact DCF regarding placement concerns, patient's current SSI payee has been notified as well and patient is schedule for [facility] on 12/05/2017 Group Spec/RT/OT/DEL CID Present: Dragan Graham OT Group Spec/RT/OT/DEL CID Input: 12/16/2017: patient refuses to participate with groups/activites 12/11/2017: Patient is easily overwhelmed refuses to participate 12/09/2017: patient lacks insight or ability to participate with activities or groups 12/04/2017 patient lacks insight or ability to appropriately attend groups or activities Documentation Scribe: Mónica Davenport Teaching Recipient: Patient Issac,Mónica [facility] Dec 18, 2017 13:38
--- NOTE | 2017-12-18 15:37 | HHI.PYPN ---
Subjective Remarks Patient seen for follow, chart reviewed. Discussion nursing staff reported the patient and refused medications this morning and continued to be irritable. Patient was found to ambulate in the hallway refusing to speak to rider only stating "discharge me... Discharge me... Go away!" And refused to continue interview. Patient now has a consistent medications was started refuse this morning. He also has been reports that he has been more amicable toward other staff and even responding politely. Patient has not required any ETO's or had any aggressive behavior. Review of Systems Except as stated in HPI: all other systems reviewed are Neg Mental Status Examination Appearance: Disheveled Consciousness: Alert Orientation: Person, Date/Time Motor Activity: Abnormal gait Speech: Unremarkable Language: Adequate Fund of Knowledge: Inadequate Memory: Impaired Mood: Angry, Irritable Affect: Irritable, Blunt Thought Process & Associations: Disorganized (Slightly less today.) Thought Content: Preoccupations (With discharge), Delusional Hallucination Type: Other (appears to be responding to internal stimuli) Delusion Type: Paranoid Suicidal Ideation: No Suicidal Plan: No Suicidal Intention: No Homicidal Ideation: No Homicidal Plan: No Homicidal Intention: No Insight: Poor Judgment: Poor Results Vitals/IOs Vital Signs Date Time Temp Pulse Resp B/P (MAP) Pulse Ox O2 Delivery O2 Flow Rate FiO2 12/18/17 05:42 68 160/82 (108) 12/17/17 17:20 18 97 12/17/17 06:24 98.3 Intake and Output 12/18/17 12/18/17 12/19/17 08:00 16:00 00:00 Intake Total 360 ml Balance 360 ml Assessment & Plan Problem List: (1) Schizoaffective disorder, depressive type ICD Codes: F25.1 - Schizoaffective disorder, depressive type Status: Acute Assessment & Plan Patient this time continues to have irritability, refusing to engage in interview, discharge focused. Patient has not required any ETO's or had any aggressive behavior recently. Patient refuse medications morning we will continue to encourage patient to maintain adherence to treatment. For now we will continue current treatment dose, continue monitor mood and behavior. Discharge planning in progress. Justification for Cont. Inpt. At risk for further decompensation if at lower level of care Discharge Planning To be determined. Rashaad Guerra MD Dec 18, 2017 15:37
[2017-12-18 18:04] VITALS: BP 176/96; PULSE 103; RESP 18; TEMP 98.7; O2SAT 98
[2017-12-18 20:30] VITALS: BP 146/85; PULSE 90; RESP 18; TEMP 98.6; O2SAT 97
[2017-12-18] MEDS: REMOVE OLD NICODERM (NICOTINE) PATCH T-DERMAL SCH (20:33)
[2017-12-19] MEDS: cloNIDine HCL 0.1 MG TAB PO PRN (05:45)
[2017-12-19] MEDS: DILTIAZEM HCL 30 MG TAB PO SCH ×4 (05:45→17:39)
[2017-12-19 05:57] VITALS: BP_SYST 170; BP_SYST 202; BP_DIAS 112; BP_DIAS 96; PULSE 75; RESP 20; TEMP 97.9; O2SAT 99
[2017-12-19] MEDS: ZIPRASIDONE HCL 80 MG CAP PO SCH ×2 (08:22→17:39)
[2017-12-19] MEDS: THIAMINE HCL 100 MG TAB PO SCH (08:22)
[2017-12-19] MEDS: NICOTINE 21 MG/24 HR PATCH T-DERMAL SCH (08:22)
[2017-12-19] MEDS: METOPROLOL TARTRATE 100 MG TAB PO SCH ×2 (08:22→20:05)
[2017-12-19] MEDS: ASPIRIN EC 81 MG TABEC PO SCH (08:22)
--- NOTE | 2017-12-19 12:06 | HHI.PYPN ---
Subjective Remarks Patient transferred to my service. Patient seen today in day room with nurse Cristina, patient had eaten small amount of his lunch. Was on his way pictures room. I attempts to speak with Yelena fruitless. Refused to speak with me. Continued walking until me to "go away" he appears to have been compliant with his medication Review of Systems Except as stated in HPI: all other systems reviewed are Neg Mental Status Examination Appearance: Disheveled Consciousness: Alert Orientation: Person, Date/Time Motor Activity: Abnormal gait Speech: Unremarkable Language: Adequate Fund of Knowledge: Inadequate Memory: Impaired Mood: Angry, Irritable Affect: Irritable, Blunt Thought Process & Associations: Disorganized (Slightly less today.) Thought Content: Preoccupations (With discharge), Delusional Hallucination Type: Other (appears to be responding to internal stimuli) Delusion Type: Paranoid Suicidal Ideation: No Suicidal Plan: No Suicidal Intention: No Homicidal Ideation: No Homicidal Plan: No Homicidal Intention: No Insight: Poor Judgment: Poor Results Vitals/IOs Vital Signs Date Time Temp Pulse Resp B/P (MAP) Pulse Ox O2 Delivery O2 Flow Rate FiO2 12/19/17 05:57 97.9 75 20 202/112 (142) 99 170/96 (120) Intake and Output 12/19/17 12/19/17 12/20/17 08:00 16:00 00:00 Intake Total 0 ml 60 ml Balance 0 ml 60 ml Assessment & Plan Problem List: (1) Schizoaffective disorder, depressive type ICD Codes: F25.1 - Schizoaffective disorder, depressive type Status: Acute Assessment & Plan Estimated LOS: days patient continues quite psychotic paranoid refusing to speak with me Justification for Cont. Inpt. At this time patient will decompensate to placed a lower level of care Discharge Planning To be determined Justin Ivy MD Dec 19, 2017 12:05
[2017-12-19 14:48] VITALS: BP 158/92; PULSE 70; RESP 19; TEMP 97.3; O2SAT 99
[2017-12-19] MEDS: REMOVE OLD NICODERM (NICOTINE) PATCH T-DERMAL SCH (21:00)
[2017-12-20] MEDS: DILTIAZEM HCL 30 MG TAB PO SCH ×5 (00:46→23:02)
[2017-12-20 06:17] VITALS: BP_SYST 136; BP_SYST 150; BP_DIAS 106; BP_DIAS 70; PULSE 75; RESP 15; TEMP 97.6
[2017-12-20] MEDS: ASPIRIN EC 81 MG TABEC PO SCH (08:02)
[2017-12-20] MEDS: ZIPRASIDONE HCL 80 MG CAP PO SCH ×2 (08:03→17:49)
[2017-12-20] MEDS: THIAMINE HCL 100 MG TAB PO SCH (08:03)
[2017-12-20] MEDS: METOPROLOL TARTRATE 100 MG TAB PO SCH ×2 (08:05→20:47)
[2017-12-20] MEDS: NICOTINE 21 MG/24 HR PATCH T-DERMAL SCH (09:00)
--- NOTE | 2017-12-20 12:48 | HHI.PYPN ---
Subjective Remarks Patient seen today in [facility] with nurse, chart review, patient discussed with nurse. Patient compliant medications. However patient still spends most of time in room [id number] is essentially nonverbal. He does make fairly intense eye contact with me briefly, but does not respond to my questions. For now continue treatment Review of Systems Except as stated in HPI: all other systems reviewed are Neg Mental Status Examination Appearance: Disheveled Consciousness: Alert Orientation: Person, Date/Time Motor Activity: Abnormal gait Speech: Unremarkable Language: Adequate Fund of Knowledge: Inadequate Memory: Impaired Mood: Angry, Irritable Affect: Irritable, Blunt Thought Process & Associations: Disorganized (Slightly less today.) Thought Content: Preoccupations (With discharge), Delusional Hallucination Type: Other (appears to be responding to internal stimuli) Delusion Type: Paranoid Suicidal Ideation: No Suicidal Plan: No Suicidal Intention: No Homicidal Ideation: No Homicidal Plan: No Homicidal Intention: No Insight: Poor Judgment: Poor Results Vitals/IOs Vital Signs Date Time Temp Pulse Resp B/P (MAP) Pulse Ox O2 Delivery O2 Flow Rate FiO2 12/20/17 06:17 97.6 75 15 150/106 (121) 136/70 (92) 12/19/17 14:48 99 Intake and Output 12/20/17 12/20/17 12/21/17 08:00 16:00 00:00 Intake Total 360 ml Balance 360 ml Assessment & Plan Problem List: (1) Schizoaffective disorder, depressive type ICD Codes: F25.1 - Schizoaffective disorder, depressive type Status: Acute Assessment & Plan Estimated LOS: days patient remained psychotic isolative in quite vigilant paranoid Justification for Cont. Inpt. At this time patient decompensated placed a lower level of care Discharge Planning To be determined referral made to [facility] Justin Ivy MD Dec 20, 2017 12:48
[2017-12-20 17:55] VITALS: BP 142/76; PULSE 71; RESP 18; TEMP 97.3; O2SAT 98
[2017-12-20] MEDS: REMOVE OLD NICODERM (NICOTINE) PATCH T-DERMAL SCH (20:47)
[2017-12-20 22:59] VITALS: BP 117/70
[2017-12-21] MEDS: DILTIAZEM HCL 30 MG TAB PO SCH ×4 (06:00→18:00)
[2017-12-21 06:02] VITALS: BP 162/94; PULSE 77; RESP 18; TEMP 98.5; O2SAT 96
[2017-12-21] MEDS: ZIPRASIDONE HCL 80 MG CAP PO SCH ×2 (08:17→18:00)
[2017-12-21] MEDS: NICOTINE 21 MG/24 HR PATCH T-DERMAL SCH (08:18)
[2017-12-21] MEDS: THIAMINE HCL 100 MG TAB PO SCH (08:18)
[2017-12-21] MEDS: ASPIRIN EC 81 MG TABEC PO SCH (08:18)
[2017-12-21] MEDS: METOPROLOL TARTRATE 100 MG TAB PO SCH ×2 (08:18→20:05)
--- NOTE | 2017-12-21 12:06 | HHI.PYPN ---
Subjective Remarks PT seen and discussed with staff. He remains paranoid and delusional, especially with female staff. He did cooperate with ADLs today and took medications. He remains isolative and vigilant. He yells at MD and RN to go away and refuses to answer any questions. Mental Status Examination Appearance: Disheveled Consciousness: Alert Orientation: Person, Date/Time Motor Activity: Abnormal gait Speech: Unremarkable Language: Adequate Fund of Knowledge: Inadequate Memory: Impaired Mood: Angry, Irritable Affect: Irritable, Blunt Thought Process & Associations: Disorganized (Slightly less today.) Thought Content: Preoccupations (With discharge), Delusional Hallucination Type: Other (appears to be responding to internal stimuli) Delusion Type: Paranoid Suicidal Ideation: No Suicidal Plan: No Suicidal Intention: No Homicidal Ideation: No Homicidal Plan: No Homicidal Intention: No Insight: Poor Judgment: Poor Results Vitals/IOs Vital Signs Date Time Temp Pulse Resp B/P (MAP) Pulse Ox O2 Delivery O2 Flow Rate FiO2 12/21/17 06:02 98.5 77 18 162/94 (116) 96 Intake and Output 12/21/17 12/21/17 12/22/17 08:00 16:00 00:00 Intake Total 120 ml Balance 120 ml Assessment & Plan Problem List: (1) Schizoaffective disorder, depressive type ICD Codes: F25.1 - Schizoaffective disorder, depressive type Status: Acute Assessment & Plan Continue current tx plan. Estimated LOS: days Justification for Cont. Inpt. impairments in reality testing and self care. Ashley Damon MD Dec 21, 2017 12:06
[2017-12-21 18:15] VITALS: BP 174/96; PULSE 96
[2017-12-21] MEDS: LORazepam 0.5 MG TAB PO PRN (20:06)
[2017-12-21] MEDS: REMOVE OLD NICODERM (NICOTINE) PATCH T-DERMAL SCH (21:00)
[2017-12-22] MEDS: DILTIAZEM HCL 30 MG TAB PO SCH ×5 (05:09→20:23)
[2017-12-22 05:59] VITALS: BP 175/92; PULSE 72; RESP 17; TEMP 97.2; O2SAT 99
[2017-12-22] MEDS: THIAMINE HCL 100 MG TAB PO SCH (08:15)
[2017-12-22] MEDS: ZIPRASIDONE HCL 80 MG CAP PO SCH ×2 (08:15→17:53)
[2017-12-22] MEDS: METOPROLOL TARTRATE 100 MG TAB PO SCH ×2 (08:15→20:23)
[2017-12-22] MEDS: NICOTINE 21 MG/24 HR PATCH T-DERMAL SCH (08:19)
[2017-12-22] MEDS: ASPIRIN EC 81 MG TABEC PO SCH (08:19)
[2017-12-22 11:02] VITALS: BP 164/96; PULSE 74
--- NOTE | 2017-12-22 12:59 | HHI.PYPN ---
Subjective Remarks Pt seen and discussed with staff. Pt remains paranoid and irritable. He cursed at RN during medication pass but was compliant. Pt initiated hygiene ADLs for first time without staff encouragement. Insight remains poor. Mental Status Examination Appearance: Disheveled Consciousness: Alert Orientation: Person, Date/Time Motor Activity: Abnormal gait Speech: Unremarkable Language: Adequate Fund of Knowledge: Inadequate Memory: Impaired Mood: Angry, Irritable Affect: Irritable, Blunt Thought Process & Associations: Disorganized (Slightly less today.) Thought Content: Preoccupations (With discharge), Delusional Hallucination Type: Other (appears to be responding to internal stimuli) Delusion Type: Paranoid Suicidal Ideation: No Suicidal Plan: No Suicidal Intention: No Homicidal Ideation: No Homicidal Plan: No Homicidal Intention: No Insight: Poor Judgment: Poor Results Vitals/IOs Vital Signs Date Time Temp Pulse Resp B/P (MAP) Pulse Ox O2 Delivery O2 Flow Rate FiO2 12/22/17 11:02 74 164/96 (118) 12/22/17 05:59 97.2 17 99 Intake and Output 12/22/17 12/22/17 12/23/17 08:00 16:00 00:00 Intake Total 360 ml Balance 360 ml Assessment & Plan Problem List: (1) Schizoaffective disorder, depressive type ICD Codes: F25.1 - Schizoaffective disorder, depressive type Status: Acute Assessment & Plan Continue current tx plan. Estimated LOS: days Justification for Cont. Inpt. impairments in reality testing Ashley Damon MD Dec 22, 2017 12:59
[2017-12-22 17:42] VITALS: BP 187/100; PULSE 100; RESP 16; O2SAT 97
[2017-12-22 18:00] VITALS: BP 175/92; PULSE 72; RESP 17; TEMP 97.2; O2SAT 99
[2017-12-22] MEDS: LORazepam 0.5 MG TAB PO PRN (20:23)
[2017-12-22] MEDS: REMOVE OLD NICODERM (NICOTINE) PATCH T-DERMAL SCH (21:00)
[2017-12-23] MEDS: DILTIAZEM HCL 30 MG TAB PO SCH ×3 (06:02→17:52)
[2017-12-23 06:38] VITALS: BP_SYST 128; BP_SYST 197; BP_DIAS 107; BP_DIAS 98; PULSE 75; RESP 16; TEMP 98.1; O2SAT 96
[2017-12-23] MEDS: NICOTINE 21 MG/24 HR PATCH T-DERMAL SCH (09:00)
[2017-12-23] MEDS: ZIPRASIDONE HCL 80 MG CAP PO SCH ×2 (09:42→17:52)
[2017-12-23] MEDS: METOPROLOL TARTRATE 100 MG TAB PO SCH ×2 (09:42→20:08)
[2017-12-23] MEDS: ASPIRIN EC 81 MG TABEC PO SCH (09:42)
[2017-12-23] MEDS: THIAMINE HCL 100 MG TAB PO SCH (09:42)
--- NOTE | 2017-12-23 10:41 | PD.TTN ---
Patient Problems 1. Discharge planning 2. Medication compliance 3. Knowledge deficit 4. Lack of coping skills Progress Toward Goals Provider Present: Dr. Jael Ivy Provider Input: 12/23/17 continue with treatment 12/16/2017: patient medication is being adjusted to counter out his behavior 12/11/2017: State Order written by ANDRÉS Patterson, application given to counselor 12/11/2017; patient has minimum improvement, medication adjustment 12/09/2017: Discussed possible state application will be required; patient's only shows minimum progress 12/04/2017; patient remain agitated, noncompliant with treatment and medication Nurse(s) Input: 12/16/2017: patient is more visible on the unit, eating meals and taking his medication 12/11/2017; patient requires redirection with medication, very anxious and agitated, patient is compliant with meals 12/09/17: Patient comes out for meals, and refuses medication, difficult to redirect 12/04/2017; patient require redirection and coaching with all needs Psychiatric Counselors Present: Terra Soto LCSW Psych Therapist Input: 12/16/2017; counselor will encourage patient with behavior/mood 12/11/2013; patient contiues with the same behavior towards staff and counselor even when redirected, counselor will complete State package 12/09/2017; patient is anxious and easily agitated refuses to engage with staff or this counselor 12/04/2017; counselor has contact DCF regarding placement concerns, patient's current SSI payee has been notified as well and patient is schedule for [facility] on 12/05/2017 Group Spec/RT/OT/DEL CID Present: MARIA EUGENIA Juan Andrew Harrison, OT Group Spec/RT/OT/DEL CID Input: 12/23/17 patient attends on unit activities such as [employer] with encouragement 12/16/2017: patient refuses to participate with groups/activites 12/11/2017: Patient is easily overwhelmed refuses to participate 12/09/2017: patient lacks insight or ability to participate with activities or groups 12/04/2017 patient lacks insight or ability to appropriately attend groups or activities Documentation Scribe: Mónica Davenport Teaching Recipient: Patient Leora Rodriguezdaniel DEL CID/Farhan Dec 23, 2017 10:41
--- NOTE | 2017-12-23 12:37 | HHI.PYPN ---
Subjective Remarks Patient seen today in his room with nurse Sonido, chart reviewed, patient compliant medication. Patient discussed with nurseBoris Villeda nonverbal with me though encouragement he became somewhat irritable angry stating "discharged me to [facility]" patient continues vigilant. For now continue treatment. Continue to await word from [facility] referral Review of Systems Except as stated in HPI: all other systems reviewed are Neg Mental Status Examination Appearance: Disheveled Consciousness: Alert Orientation: Person, Date/Time Motor Activity: Abnormal gait Speech: Unremarkable Language: Adequate Fund of Knowledge: Inadequate Memory: Impaired Mood: Angry, Irritable Affect: Irritable, Blunt Thought Process & Associations: Disorganized (Slightly less today.) Thought Content: Preoccupations (With discharge), Delusional Hallucination Type: Other (appears to be responding to internal stimuli) Delusion Type: Paranoid Suicidal Ideation: No Suicidal Plan: No Suicidal Intention: No Homicidal Ideation: No Homicidal Plan: No Homicidal Intention: No Insight: Poor Judgment: Poor Results Vitals/IOs Vital Signs Date Time Temp Pulse Resp B/P (MAP) Pulse Ox O2 Delivery O2 Flow Rate FiO2 12/23/17 06:38 98.1 75 16 128/98 (108) 96 Intake and Output 12/23/17 12/23/17 12/24/17 08:00 16:00 00:00 Intake Total 220 ml Balance 220 ml Assessment & Plan Problem List: (1) Schizoaffective disorder, depressive type ICD Codes: F25.1 - Schizoaffective disorder, depressive type Status: Acute Assessment & Plan Estimated LOS: days patient continues somewhat psychotic paranoid isolative very little verbal output. No his compliant with medications. For now continue treatment. Continue to await word from [facility] Justification for Cont. Inpt. Patient has been referred to the [facility] Discharge Planning Continued would word from [facility] Justin Ivy MD Dec 23, 2017 12:37
[2017-12-23 18:04] VITALS: BP 143/67; PULSE 84; RESP 16; TEMP 98.5; O2SAT 98
[2017-12-23 21:00] VITALS: BP 172/77; PULSE 74; RESP 16; TEMP 98.5; O2SAT 95
[2017-12-23] MEDS: REMOVE OLD NICODERM (NICOTINE) PATCH T-DERMAL SCH (21:00)
[2017-12-24] MEDS: DILTIAZEM HCL 30 MG TAB PO SCH ×5 (01:02→18:15)
[2017-12-24] MEDS: cloNIDine HCL 0.1 MG TAB PO PRN (05:38)
[2017-12-24 05:57] VITALS: BP 192/98; PULSE 93; RESP 18; TEMP 97.5; O2SAT 99
[2017-12-24] MEDS: ZIPRASIDONE HCL 80 MG CAP PO SCH ×2 (08:41→18:15)
[2017-12-24] MEDS: METOPROLOL TARTRATE 100 MG TAB PO SCH ×2 (08:41→21:00)
[2017-12-24] MEDS: THIAMINE HCL 100 MG TAB PO SCH (08:42)
[2017-12-24] MEDS: ASPIRIN EC 81 MG TABEC PO SCH (08:42)
[2017-12-24] MEDS: NICOTINE 21 MG/24 HR PATCH T-DERMAL SCH (09:00)
--- NOTE | 2017-12-24 10:44 | HHI.PYPN ---
Subjective Remarks Attempted to see patient with nurse Tushar and counselor Terra. Chart review. Patient compliant medications. Patient discussed with nurse. Patient was noted to be lying in bed in his room. When we came and he told us to "get out get out" we did. Patient remained psychotic angry and irritable though no other behavioral problems are noted placement remains problematic Review of Systems Except as stated in HPI: all other systems reviewed are Neg Mental Status Examination Appearance: Disheveled Consciousness: Alert Orientation: Person, Date/Time Motor Activity: Abnormal gait Speech: Unremarkable Language: Adequate Fund of Knowledge: Inadequate Memory: Impaired Mood: Angry, Irritable Affect: Irritable, Blunt Thought Process & Associations: Disorganized (Slightly less today.) Thought Content: Preoccupations (With discharge), Delusional Hallucination Type: Other (appears to be responding to internal stimuli) Delusion Type: Paranoid Suicidal Ideation: No Suicidal Plan: No Suicidal Intention: No Homicidal Ideation: No Homicidal Plan: No Homicidal Intention: No Insight: Poor Judgment: Poor Results Vitals/IOs Vital Signs Date Time Temp Pulse Resp B/P (MAP) Pulse Ox O2 Delivery O2 Flow Rate FiO2 12/24/17 05:57 97.5 93 18 192/98 (129) 99 Intake and Output 12/24/17 12/24/17 12/25/17 08:00 16:00 00:00 Intake Total 120 ml Balance 120 ml Assessment & Plan Problem List: (1) Schizoaffective disorder, depressive type ICD Codes: F25.1 - Schizoaffective disorder, depressive type Status: Acute Assessment & Plan Estimated LOS: days patient remains vigilant paranoid and somewhat psychotic, refusing to speak with us today, but no other significant behavioral problems. Compliant medications Justification for Cont. Inpt. At this time patient will decompensate the placed in a lower level of care Discharge Planning Continues to be problematic Justin Ivy MD Dec 24, 2017 10:44
[2017-12-24 18:35] VITALS: BP 167/88; PULSE 118; RESP 18; TEMP 98.3; O2SAT 97
[2017-12-24] MEDS: REMOVE OLD NICODERM (NICOTINE) PATCH T-DERMAL SCH (21:00)
[2017-12-25 06:00] VITALS: BP 164/113; PULSE 72; RESP 18; TEMP 97.4; O2SAT 99
[2017-12-25] MEDS: DILTIAZEM HCL 30 MG TAB PO SCH ×5 (06:00→23:34)
[2017-12-25] MEDS: cloNIDine HCL 0.1 MG TAB PO PRN (06:40)
[2017-12-25] MEDS: NICOTINE 21 MG/24 HR PATCH T-DERMAL SCH (09:00)
--- NOTE | 2017-12-25 09:17 | HHI.PYPN ---
Subjective Remarks Patient seen in his room with nurse Giovana, chart reviewed, patient compliant medication, patient discussed with nurse. As I into the room patient yelled out "go away" go away". Otherwise patient continues to isolate what is [place] for food and toileting and is no other behavioral problem. Continue to await word from the [facility] referral, will increase Geodon to 80 mg a.m. 120 mg at bedtime Review of Systems Except as stated in HPI: all other systems reviewed are Neg Mental Status Examination Appearance: Disheveled Consciousness: Alert Orientation: Person, Date/Time Motor Activity: Abnormal gait Speech: Unremarkable Language: Adequate Fund of Knowledge: Inadequate Memory: Impaired Mood: Angry, Irritable Affect: Irritable, Blunt Thought Process & Associations: Disorganized (Slightly less today.) Thought Content: Preoccupations (With discharge), Delusional Hallucination Type: Other (appears to be responding to internal stimuli) Delusion Type: Paranoid Suicidal Ideation: No Suicidal Plan: No Suicidal Intention: No Homicidal Ideation: No Homicidal Plan: No Homicidal Intention: No Insight: Poor Judgment: Poor Results Vitals/IOs Vital Signs Date Time Temp Pulse Resp B/P (MAP) Pulse Ox O2 Delivery O2 Flow Rate FiO2 12/25/17 06:00 97.4 72 18 164/113 (130) 99 Intake and Output 12/25/17 12/25/17 12/26/17 08:00 16:00 00:00 Intake Total 240 ml Balance 240 ml Assessment & Plan Problem List: (1) Schizoaffective disorder, depressive type ICD Codes: F25.1 - Schizoaffective disorder, depressive type Status: Acute Assessment & Plan Estimated LOS: days patient continue psychotic isolative and paranoid. She medication adjustment above. Continue to wait for word from [facility] Justification for Cont. Inpt. At this time patient will decompensate if placed in a lower level of care Justin Ivy MD Dec 25, 2017 09:17
[2017-12-25] MEDS: METOPROLOL TARTRATE 100 MG TAB PO SCH ×2 (09:26→20:41)
[2017-12-25] MEDS: ASPIRIN EC 81 MG TABEC PO SCH (09:26)
[2017-12-25] MEDS: ZIPRASIDONE HCL 80 MG CAP PO SCH (09:26)
[2017-12-25] MEDS: THIAMINE HCL 100 MG TAB PO SCH (09:26)
[2017-12-25 18:00] VITALS: BP 105/68; PULSE 73; RESP 18; TEMP 98; O2SAT 99
[2017-12-25] MEDS: REMOVE OLD NICODERM (NICOTINE) PATCH T-DERMAL SCH (20:12)
[2017-12-25] MEDS: ZIPRASIDONE HCL 60 MG CAP PO SCH (20:41)
[2017-12-26] MEDS: DILTIAZEM HCL 30 MG TAB PO SCH ×3 (05:35→18:00)
[2017-12-26 05:56] VITALS: BP 164/72; PULSE 59; RESP 19; TEMP 97.5; O2SAT 93
[2017-12-26] MEDS: THIAMINE HCL 100 MG TAB PO SCH (08:57)
[2017-12-26] MEDS: ASPIRIN EC 81 MG TABEC PO SCH (08:57)
[2017-12-26] MEDS: METOPROLOL TARTRATE 100 MG TAB PO SCH ×2 (08:57→21:13)
[2017-12-26] MEDS: NICOTINE 21 MG/24 HR PATCH T-DERMAL SCH (09:00)
[2017-12-26] MEDS: ZIPRASIDONE HCL 80 MG CAP PO SCH (09:02)
--- NOTE | 2017-12-26 10:47 | HHI.PYPN ---
Subjective Remarks Patient seen in his room with nurse Jorje, chart review, patient compliant medications, patient discussed with nurse. Patient laying quietly in his bed staring at me and the doorway yelling " get out get out get out "refused to say anything more to me. Continue to await word from [facility] Review of Systems Except as stated in HPI: all other systems reviewed are Neg Mental Status Examination Appearance: Disheveled Consciousness: Alert Orientation: Person, Date/Time Motor Activity: Abnormal gait Speech: Unremarkable Language: Adequate Fund of Knowledge: Inadequate Memory: Impaired Mood: Angry, Irritable Affect: Irritable, Blunt Thought Process & Associations: Disorganized (Slightly less today.) Thought Content: Preoccupations (With discharge), Delusional Hallucination Type: Other (appears to be responding to internal stimuli) Delusion Type: Paranoid Suicidal Ideation: No Suicidal Plan: No Suicidal Intention: No Homicidal Ideation: No Homicidal Plan: No Homicidal Intention: No Insight: Poor Judgment: Poor Results Vitals/IOs Vital Signs Date Time Temp Pulse Resp B/P (MAP) Pulse Ox O2 Delivery O2 Flow Rate FiO2 12/26/17 05:56 97.5 59 19 164/72 (102) 93 Intake and Output 12/26/17 12/26/17 12/27/17 08:00 16:00 00:00 Intake Total 0 ml 240 ml Balance 0 ml 240 ml Assessment & Plan Problem List: (1) Schizoaffective disorder, depressive type ICD Codes: F25.1 - Schizoaffective disorder, depressive type Status: Acute Assessment & Plan Estimated LOS: days patient continues psychotic delusional irritable though no other significant behavioral problems, compliant medications. Continue to wait for word from [facility] Justification for Cont. Inpt. At this time patient will decompensate of placed in a lower level of care Discharge Planning To be determined continue to await word from [facility] Justin Ivy MD Dec 26, 2017 10:47
[2017-12-26 17:06] VITALS: BP 154/108; PULSE 101; RESP 16; TEMP 98.4; O2SAT 97
[2017-12-26] MEDS: REMOVE OLD NICODERM (NICOTINE) PATCH T-DERMAL SCH (20:37)
[2017-12-26] MEDS: ZIPRASIDONE HCL 60 MG CAP PO SCH (21:13)
[2017-12-27] MEDS: DILTIAZEM HCL 30 MG TAB PO SCH ×5 (00:29→23:14)
[2017-12-27 06:01] VITALS: BP 150/96; PULSE 72; RESP 18; TEMP 97.8; O2SAT 97
[2017-12-27] MEDS: NICOTINE 21 MG/24 HR PATCH T-DERMAL SCH (09:00)
[2017-12-27] MEDS: ASPIRIN EC 81 MG TABEC PO SCH (10:25)
[2017-12-27] MEDS: METOPROLOL TARTRATE 100 MG TAB PO SCH ×2 (10:25→21:14)
[2017-12-27] MEDS: ZIPRASIDONE HCL 80 MG CAP PO SCH (10:25)
[2017-12-27] MEDS: THIAMINE HCL 100 MG TAB PO SCH (10:25)
--- NOTE | 2017-12-27 12:58 | HHI.PYPN ---
Subjective Remarks Reviewed electronic medical record and discussed case with staff. Patient's follow-up was performed in his room with patient lying on bed. When I entered the room patient stated, "go away". Patient is alert and refusing once again to cooperate with staff. He did take his medication this morning after argument. I advised patient that he had been doing much better yesterday and that I needed him to talk with me. He did answer questions after that with one- word answers. Her evaluation ended once again with him stating "go away". I have been advised by staff that patient is slated to go to a state facility on January 02, 2018. Mental Status Examination Appearance: Disheveled Consciousness: Alert Orientation: Person, Date/Time Motor Activity: Abnormal gait Speech: Unremarkable Language: Adequate Fund of Knowledge: Inadequate Memory: Impaired Mood: Angry, Irritable Affect: Irritable, Blunt Thought Process & Associations: Disorganized (Slightly less today.) Thought Content: Preoccupations (With discharge), Delusional Hallucination Type: Other (appears to be responding to internal stimuli) Delusion Type: Paranoid Suicidal Ideation: No Suicidal Plan: No Suicidal Intention: No Homicidal Ideation: No Homicidal Plan: No Homicidal Intention: No Insight: Poor Judgment: Poor Results Vitals/IOs Vital Signs Date Time Temp Pulse Resp B/P (MAP) Pulse Ox O2 Delivery O2 Flow Rate FiO2 12/27/17 06:01 97.8 72 18 150/96 (114) 97 Intake and Output 12/27/17 12/27/17 12/28/17 08:00 16:00 00:00 Intake Total 0 ml 240 ml Balance 0 ml 240 ml Assessment & Plan Problem List: (1) Schizoaffective disorder, depressive type ICD Codes: F25.1 - Schizoaffective disorder, depressive type Status: Acute Assessment & Plan Estimated LOS: Patient lacks capacity to care for self. He is slated to go to a state facility on January 02 2018. Justification for Cont. Inpt. Moving this patient to a lower level of care would result in decompensation. Emily Vasquez Dec 27, 2017 12:58
[2017-12-27 16:07] VITALS: BP 166/68; PULSE 84; RESP 17; TEMP 97.5; O2SAT 97
[2017-12-27] MEDS: REMOVE OLD NICODERM (NICOTINE) PATCH T-DERMAL SCH (21:00)
[2017-12-27] MEDS: ZIPRASIDONE HCL 60 MG CAP PO SCH (21:14)
[2017-12-27 23:13] VITALS: BP 145/92; PULSE 113; RESP 16; TEMP 97.5; O2SAT 97
[2017-12-28 05:57] VITALS: BP 121/71; PULSE 74; RESP 16; TEMP 98.1; O2SAT 96
[2017-12-28] MEDS: DILTIAZEM HCL 30 MG TAB PO SCH ×4 (06:11→18:00)
[2017-12-28] MEDS: ZIPRASIDONE HCL 80 MG CAP PO SCH (08:53)
[2017-12-28] MEDS: THIAMINE HCL 100 MG TAB PO SCH (08:53)
[2017-12-28] MEDS: ASPIRIN EC 81 MG TABEC PO SCH (08:53)
[2017-12-28] MEDS: METOPROLOL TARTRATE 100 MG TAB PO SCH ×2 (08:54→20:31)
[2017-12-28] MEDS: NICOTINE 21 MG/24 HR PATCH T-DERMAL SCH (09:00)
--- NOTE | 2017-12-28 12:30 | HHI.PYPN ---
Subjective Remarks Patient was seen and case discussed with nursing. Patient initially refuses the interview but when I mentioned [place] he opened up and had a full discussion with complete sentences. Patient is perseverant on discharge and describes a house that he has and is hoping to go there. Denies auditory visual hallucinations. No specific delusions elicited. Thought processes loose. Denies suicidal or homicidal ideation intent or plan Mental Status Examination Appearance: Disheveled Consciousness: Alert Orientation: Person, Date/Time Motor Activity: Abnormal gait Speech: Unremarkable Language: Adequate Fund of Knowledge: Inadequate Memory: Impaired Mood: Oppositional, Irritable Affect: Irritable, Blunt Thought Process & Associations: Disorganized (Slightly less today.) Thought Content: Preoccupations (With discharge), Delusional Hallucination Type: Other (appears to be responding to internal stimuli) Delusion Type: Paranoid Suicidal Ideation: No Suicidal Plan: No Suicidal Intention: No Homicidal Ideation: No Homicidal Plan: No Homicidal Intention: No Insight: Poor Judgment: Poor Results Vitals/IOs Vital Signs Date Time Temp Pulse Resp B/P (MAP) Pulse Ox O2 Delivery O2 Flow Rate FiO2 12/28/17 05:57 98.1 74 16 121/71 (88) 96 Intake and Output 12/28/17 12/28/17 12/29/17 08:00 16:00 00:00 Intake Total 0 ml 720 ml Balance 0 ml 720 ml Assessment & Plan Problem List: (1) Schizoaffective disorder, depressive type ICD Codes: F25.1 - Schizoaffective disorder, depressive type Status: Acute Assessment & Plan Continue current treatment plan Justification for Cont. Inpt. Patient would decompensate in a less restrictive setting Kurt Garcia DO Dec 28, 2017 12:30
[2017-12-28 13:09] VITALS: BP 93/59; PULSE 74
[2017-12-28 17:31] VITALS: BP 122/80; PULSE 71; RESP 18; TEMP 97.4; O2SAT 97
[2017-12-28] MEDS: ZIPRASIDONE HCL 60 MG CAP PO SCH (20:31)
[2017-12-28 21:00] VITALS: BP 111/73; PULSE 78
[2017-12-28] MEDS: REMOVE OLD NICODERM (NICOTINE) PATCH T-DERMAL SCH (21:00)
[2017-12-29 03:30] VITALS: BP 152/92; PULSE 76; RESP 20
[2017-12-29] MEDS: DILTIAZEM HCL 30 MG TAB PO SCH ×4 (03:31→18:00)
[2017-12-29 05:42] VITALS: BP 138/80; PULSE 69; RESP 20; TEMP 97.5; O2SAT 95
[2017-12-29] MEDS: NICOTINE 21 MG/24 HR PATCH T-DERMAL SCH (09:00)
[2017-12-29] MEDS: ASPIRIN EC 81 MG TABEC PO SCH (09:14)
[2017-12-29] MEDS: ZIPRASIDONE HCL 80 MG CAP PO SCH (09:14)
[2017-12-29] MEDS: THIAMINE HCL 100 MG TAB PO SCH (09:14)
[2017-12-29] MEDS: METOPROLOL TARTRATE 100 MG TAB PO SCH ×2 (09:15→21:22)
--- NOTE | 2017-12-29 12:32 | HHI.PYPN ---
Subjective Remarks Patient was seen and case discussed with nursing. Patient is markedly more irritable today and refuses the interview. He just yells go away. Per nursing , he has been agitated and threw water at her. His oppositional behavior does not seem to have a reason. Mental Status Examination Appearance: Disheveled Consciousness: Alert Orientation: Person, Date/Time Motor Activity: Abnormal gait Speech: Unremarkable Language: Adequate Fund of Knowledge: Inadequate Memory: Impaired Mood: Angry, Oppositional, Irritable Affect: Irritable, Blunt Thought Process & Associations: Disorganized (Slightly less today.) Thought Content: Preoccupations (With discharge), Delusional Hallucination Type: Other (appears to be responding to internal stimuli) Delusion Type: Paranoid Suicidal Ideation: No Suicidal Plan: No Suicidal Intention: No Homicidal Ideation: No Homicidal Plan: No Homicidal Intention: No Insight: Poor Judgment: Poor Results Vitals/IOs Vital Signs Date Time Temp Pulse Resp B/P (MAP) Pulse Ox O2 Delivery O2 Flow Rate FiO2 12/29/17 05:42 97.5 69 20 138/80 (99) 95 Intake and Output 12/29/17 12/29/17 12/30/17 08:00 16:00 00:00 Intake Total 0 ml Balance 0 ml Assessment & Plan Problem List: (1) Schizoaffective disorder, depressive type ICD Codes: F25.1 - Schizoaffective disorder, depressive type Status: Acute Assessment & Plan Continue current treatment plan Justification for Cont. Inpt. Patient will decompensate in a less restrictive setting Kurt Garcia DO Dec 29, 2017 12:32
[2017-12-29 21:00] VITALS: BP 142/86; PULSE 96; RESP 20
[2017-12-29] MEDS: REMOVE OLD NICODERM (NICOTINE) PATCH T-DERMAL SCH (21:00)
[2017-12-29] MEDS: ZIPRASIDONE HCL 60 MG CAP PO SCH (21:24)
[2017-12-30] MEDS: DILTIAZEM HCL 30 MG TAB PO SCH ×4 (05:21→18:00)
[2017-12-30 06:17] VITALS: BP 143/98; PULSE 77; RESP 16; TEMP 97.5; O2SAT 94
[2017-12-30] MEDS: METOPROLOL TARTRATE 100 MG TAB PO SCH ×2 (09:00→21:01)
[2017-12-30] MEDS: ASPIRIN EC 81 MG TABEC PO SCH (09:00)
[2017-12-30] MEDS: ZIPRASIDONE HCL 80 MG CAP PO SCH (09:00)
[2017-12-30] MEDS: THIAMINE HCL 100 MG TAB PO SCH (09:00)
[2017-12-30] MEDS: NICOTINE 21 MG/24 HR PATCH T-DERMAL SCH (09:00)
--- NOTE | 2017-12-30 09:28 | PD.TTN ---
Patient Problems 1. Discharge planning 2. Medication compliance 3. Knowledge deficit 4. Lack of coping skills Progress Toward Goals Provider Present: Dr. Jael Ivy, Dr. Gasper Guerra Provider Input: 12/30/2017: State Wait: Continue treatment 12/23/17 continue with treatment 12/16/2017: patient medication is being adjusted to counter out his behavior 12/11/2017: State Order written by ANDRÉS Patterson, application given to counselor 12/11/2017; patient has minimum improvement, medication adjustment 12/09/2017: Discussed possible state application will be required; patient's only shows minimum progress 12/04/2017; patient remain agitated, noncompliant with treatment and medication Nurse(s) Input: 12/16/2017: patient is more visible on the unit, eating meals and taking his medication 12/11/2017; patient requires redirection with medication, very anxious and agitated, patient is compliant with meals 12/09/17: Patient comes out for meals, and refuses medication, difficult to redirect 12/04/2017; patient require redirection and coaching with all needs Psychiatric Counselors Present: Dmitriy Barnes, [facility], Terra Soto [facility], Kailey Riley, [facility], Alex Wang Jr., [facility], Mónica Davenport, [facility], Li Aguilar, [facility] Psych Therapist Input: 12/30/17: Transferred to the [facility] on 01/02/18 12/16/2017; counselor will encourage patient with behavior/mood 12/11/2013; patient contiues with the same behavior towards staff and counselor even when redirected, counselor will complete State package 12/09/2017; patient is anxious and easily agitated refuses to engage with staff or this counselor 12/04/2017; counselor has contact DCF regarding placement concerns, patient's current SSI payee has been notified as well and patient is schedule for [place] [facility] on 12/05/2017 Group Spec/RT/OT/DEL CID Present: Catrina Lucas, GPS, Dragan Graham, OT, Other ( OT Digital Photographic Printer Edson) Group Spec/RT/OT/DEL CID Input: 12/30/17: Patient isolates to his room, refusing to attend the group activities. 12/23/17 patient attends on unit activities such as Ice Cream Social with encouragement 12/16/2017: patient refuses to participate with groups/activites 12/11/2017: Patient is easily overwhelmed refuses to participate 12/09/2017: patient lacks insight or ability to participate with activities or groups 12/04/2017 patient lacks insight or ability to appropriately attend groups or activities Discharge Plan Other Patient will be transferred to [facility] on 01/02/18 Documentation Scribe: Catrina Lucas GPS Teaching Recipient: Patient Catrina Lucas Dec 30, 2017 09:28
--- NOTE | 2017-12-30 13:06 | HHI.PYPN ---
Subjective Remarks Patient seen in his room with nurse Roseanne, chart review, patient compliant medication, patient discussed with nurse. Patient sitting in the dark when she was myself he glared at me and said go away I don't want to talk to you Review of Systems Except as stated in HPI: all other systems reviewed are Neg Mental Status Examination Appearance: Disheveled Consciousness: Alert Orientation: Person, Date/Time Motor Activity: Abnormal gait Speech: Unremarkable Language: Adequate Fund of Knowledge: Inadequate Memory: Impaired Mood: Angry, Oppositional, Irritable Affect: Irritable, Blunt Thought Process & Associations: Disorganized (Slightly less today.) Thought Content: Preoccupations (With discharge), Delusional Hallucination Type: Other (appears to be responding to internal stimuli) Delusion Type: Paranoid Suicidal Ideation: No Suicidal Plan: No Suicidal Intention: No Homicidal Ideation: No Homicidal Plan: No Homicidal Intention: No Insight: Poor Judgment: Poor Results Vitals/IOs Vital Signs Date Time Temp Pulse Resp B/P (MAP) Pulse Ox O2 Delivery O2 Flow Rate FiO2 12/30/17 06:17 97.5 77 16 143/98 (113) 94 Intake and Output 12/30/17 12/30/17 12/31/17 08:00 16:00 00:00 Intake Total 0 ml 0 ml Balance 0 ml 0 ml Assessment & Plan Problem List: (1) Schizoaffective disorder, depressive type ICD Codes: F25.1 - Schizoaffective disorder, depressive type Status: Acute Assessment & Plan . Estimated LOS: days patient remains quite psychotic delusional paranoid, compliant medication, though no significant behavioral issues at this time. Patient scheduled for transfer to the [facility] appears on 01/02/18 Justification for Cont. Inpt. Probable discharge to [facility] 01/02/18 Discharge Planning [facility] 01/02/18 Justin Ivy MD Dec 30, 2017 13:06
[2017-12-30 18:34] VITALS: BP 124/65; PULSE 71; RESP 18; TEMP 98.1; O2SAT 99
[2017-12-30] MEDS: REMOVE OLD NICODERM (NICOTINE) PATCH T-DERMAL SCH (21:00)
[2017-12-30] MEDS: ZIPRASIDONE HCL 60 MG CAP PO SCH (21:00)
[2017-12-31] MEDS: DILTIAZEM HCL 30 MG TAB PO SCH ×4 (06:01→18:00)
[2017-12-31 06:35] VITALS: BP 184/97; PULSE 63; RESP 21; TEMP 98.3; O2SAT 96
[2017-12-31] MEDS: ZIPRASIDONE HCL 80 MG CAP PO SCH (08:36)
[2017-12-31] MEDS: METOPROLOL TARTRATE 100 MG TAB PO SCH ×2 (08:36→21:08)
[2017-12-31] MEDS: THIAMINE HCL 100 MG TAB PO SCH (08:36)
[2017-12-31] MEDS: ASPIRIN EC 81 MG TABEC PO SCH (08:36)
[2017-12-31] MEDS: NICOTINE 21 MG/24 HR PATCH T-DERMAL SCH (08:37)
--- NOTE | 2017-12-31 12:04 | HHI.PYPN ---
Subjective Remarks Seen in his room with nurse Cronin, chart review, patient compliant medications, patient discussed with nurse. Patient continues to isolate, though is no significant behavioral problems, continues to tell me to leave the room and don' t talk to him. Patient is scheduled for transfer to the [facility] on 01/02, will discuss this with him tomorrow Review of Systems Except as stated in HPI: all other systems reviewed are Neg Mental Status Examination Appearance: Disheveled Consciousness: Alert Orientation: Person, Date/Time Motor Activity: Abnormal gait Speech: Unremarkable Language: Adequate Fund of Knowledge: Inadequate Memory: Impaired Mood: Angry, Oppositional, Irritable Affect: Irritable, Blunt Thought Process & Associations: Disorganized (Slightly less today.) Thought Content: Preoccupations (With discharge), Delusional Hallucination Type: Other (appears to be responding to internal stimuli) Delusion Type: Paranoid Suicidal Ideation: No Suicidal Plan: No Suicidal Intention: No Homicidal Ideation: No Homicidal Plan: No Homicidal Intention: No Insight: Poor Judgment: Poor Results Vitals/IOs Vital Signs Date Time Temp Pulse Resp B/P (MAP) Pulse Ox O2 Delivery O2 Flow Rate FiO2 12/31/17 06:35 98.3 63 21 184/97 (126 96 Assessment & Plan Problem List: (1) Schizoaffective disorder, depressive type ICD Codes: F25.1 - Schizoaffective disorder, depressive type Status: Acute Assessment & Plan Estimated LOS: days patient continue psychotic and delusional, though no significant behavioral problems. Patient scheduled for transfer to the [facility] on 01/02 Justification for Cont. Inpt. At this time patient decompensate if not placed in the appropriate level of care Discharge Planning Anticipated transfer to [facility] 01/02 Justin Ivy MD Dec 31, 2017 12:04
[2017-12-31 18:30] VITALS: BP 145/92; PULSE 87; RESP 18; TEMP 98.2; O2SAT 97
[2017-12-31] MEDS: REMOVE OLD NICODERM (NICOTINE) PATCH T-DERMAL SCH (21:00)
[2017-12-31] MEDS: ZIPRASIDONE HCL 60 MG CAP PO SCH (21:08)
[2018-01-01] MEDS: DILTIAZEM HCL 30 MG TAB PO SCH ×4 (01:28→17:11)
[2018-01-01 06:05] VITALS: BP 124/74; PULSE 59; RESP 17; TEMP 97.3; O2SAT 95
[2018-01-01] MEDS: ZIPRASIDONE HCL 80 MG CAP PO SCH ×2 (09:00→09:07)
[2018-01-01] MEDS: METOPROLOL TARTRATE 100 MG TAB PO SCH ×3 (09:00→20:51)
[2018-01-01] MEDS: THIAMINE HCL 100 MG TAB PO SCH ×2 (09:00→09:07)
[2018-01-01] MEDS: ASPIRIN EC 81 MG TABEC PO SCH ×2 (09:00→09:07)
[2018-01-01] MEDS: NICOTINE 21 MG/24 HR PATCH T-DERMAL SCH (09:00)
[2018-01-01] MEDS ORDERED: GEOD80CA PO (14:57)
[2018-01-01] MEDS ORDERED: THIA100 PO (14:57)
[2018-01-01] MEDS ORDERED: METO-338 PO (14:57)
[2018-01-01] MEDS ORDERED: LOXA5CAP PO (14:57)
[2018-01-01] MEDS ORDERED: ASPI1TAB56 PO (14:57)
[2018-01-01] MEDS ORDERED: LOXA25CA PO (14:57)
[2018-01-01] MEDS ORDERED: DILT31TA PO (14:57)
--- NOTE | 2018-01-01 15:06 | HHI.DS ---
Psychiatry Discharge Summary Inpatient Psychiatric care?: Yes Advance Directive: No Reason Not Provided: Due to Patient Condition Mental Health AdvanceDirective: No Health Care Proxy: No Admission Admission Date Nov 26, 2017 at 18:45 Admission Diagnosis: (1) Schizoaffective disorder, depressive type ICD Code: F25.1 - Schizoaffective disorder, depressive type Brief History Late entry, patient was seen 11/26/2017 at 11:[address] Stanley 11/23/2017 for consultation: Mr. Desir is a 67-year-old male with a history of schizoaffective disorder who is presently admitted to the [facility] for evaluation of A. fib with RVR. Circumstances of patient's presentation here are somewhat confused, but from what I can glean from notes it seems that the patient was brought by a feller seam operator to the police because he failed to appear in court. He was at some point noted to be altered and brought to the emergency department. Patient is well known to the psychiatric service here, and I have seen him several times previously on the inpatient unit myself. Electronic medical record reviewed.Patient seen and examined. Chart reviewed. MAR from outpatient facility reviewed. I note that patient most recently has been prescribed loxapine 25 mg twice daily. He has been refusing loxapine here in the hospital. Case discussed with nursing staff. On my examination today, the patient presents as severely decompensated with respect to his psychotic illness. He is perhaps the most ill that I have seen him. He is quite disheveled, irritable, paranoid and internally stimulated. He seems to have lost quite a bit of weight. He is unable to tolerate extended interview and yells at me "I don't want to talk to you! When I persist he says "no, go away!" He finally charges at me in a menacing manner, stopping at his doorway. Psychiatric interview is quite limited because of the patient's degree of psychotic decompensation. I am unable to obtain any past psychiatric , family, chemical dependency or social history from this patient for the same reason. The patient is a 66 year-old man, domiciled in [facility], single , unemployed, supported by [facility], with extensive psychiatric history of schizophrenia, schizoaffective, multiple psychiatric hospitalizations, known by our service, he was recently discharged from [facility] where he was under the care of Dr. Ivy, documentation was reviewed, he is on Haldol 10 mg twice a day, Abilify 15 mg, benztropine 1 mg twice a day, medical history of disorder hyperlipidemia, hypertension was brought to the ED for evaluation of altered mental status change and medical clearance from [facility] [place].The patient was seen today for psychiatric reevaluation. The case was widely discussed with nursing charge. On psychiatric evaluation the patient is found in his room, disorganized, agitated, restless, refusing to talk and persistently stating that "I don't want to talk, get out", at some point he has to be redirected and mannerly moved to his bed. As per nursing charge, the patient has been this way since yesterday, refusing to take medications, refusing to talk with a doctor and nurses and to cooperate in general Tobacco Use In Past 30 Days: No Tobacco Past 30 Days Alcohol Use: Never Hospital Course Patient's hospital course was significant for the persistence of his paranoia and delusions, is irritability, nonparticipation in the milieu and programming isolation in his room. The was compliant with medications. His usual response to me was go away, don't talk to me. It was the recommendation of the treatment team that the patient demanded fpc hospitalization and treatment. Patient was referred to [facility]. Is a bed available for him at that facility as of tomorrow. Patient to be discharged tomorrow to [facility] Rx 1 month patient reviewed his a.m. meds prior to discharge follow-up mental and psychiatric services through that facility Results Blood Pressure 124 / 74 Vital Signs Date Time Temp Pulse Resp B/P (MAP) Pulse Ox O2 Delivery O2 Flow Rate FiO2 01/01/18 06:05 97.3 59 17 124/74 (91) 95 Please see EMR for full lab results Summary of Procedures None done Pending results at discharge: No Medications # of Antipsychotic meds at D/C: 2 Appropriate >1 Antipsych meds?: 2 (patient clinician could consider possible taper of either Zyprexa or loxapine as patient improves) Approp Antipsych med options 1 - Minimum of three failed multiple trials of monotherapy. 2 - Documented plan to taper to monotherapy due to previous use of multiple meds OR cross-taper in progress at D/C. 3 - Documentation of augmentation of Clozapine. 4 - Justification other than those listed in allowable values 1-3, document here : Discharge Discharge Date: Jan 01, 2018 Discharge Diagnosis: (1) Schizoaffective disorder, depressive type Diagnosis: Principal ICD Code: F25.1 - Schizoaffective disorder, depressive type Status: Acute Pt Condition on Discharge: Guarded Discharge Disposition: Trnsfr to Other Facility Discharge Instructions Diet Instructions: As Tolerated, No Restrictions Activities you can perform: Regular-No Restrictions Scheduled Appointment: [facility] Discharge Time > 30 minutes Mental Status Examination Appearance: Disheveled Consciousness: Alert Orientation: Person, Date/Time Motor Activity: Abnormal gait Speech: Unremarkable Language: Adequate Fund of Knowledge: Inadequate Memory: Impaired Mood: Angry, Oppositional, Irritable Affect: Irritable, Blunt Thought Process & Associations: Disorganized (Slightly less today.) Thought Content: Preoccupations (With discharge), Delusional Hallucination Type: Other (appears to be responding to internal stimuli) Delusion Type: Paranoid Suicidal Ideation: No Suicidal Plan: No Suicidal Intention: No Homicidal Ideation: No Homicidal Plan: No Homicidal Intention: No Insight: Poor Judgment: Poor Discharge/Advance Care Plan Health Problems: (1) Schizoaffective disorder, depressive type Goals to promote your health * To prevent worsening of your condition and complications * To maintain your health at the optimal level Directions to meet your goals Take your medications as prescribed Follow your dietary instruction Follow activity as directed Keep your appointments as scheduled Take your immunizations and boosters as scheduled If your symptoms worsen call your PCP, if no PCP go to Urgent Care Center or Emergency Room For 22/04 questions related to your inpatient stay or results of tests pending at discharge, please contact Dr. Justin Ivy at Smoking is Dangerous to Your Health. Avoid second hand smoking Justin Ivy MD Jan 01, 2018 15:05
[2018-01-01 16:43] VITALS: BP 165/98; PULSE 71; RESP 18
[2018-01-01] MEDS: ZIPRASIDONE HCL 60 MG CAP PO SCH (20:51)
[2018-01-01] MEDS: REMOVE OLD NICODERM (NICOTINE) PATCH T-DERMAL SCH (20:52)
[2018-01-02] MEDS: DILTIAZEM HCL 30 MG TAB PO SCH ×2 (00:04→05:55)
[2018-01-02 05:51] VITALS: BP 174/98; PULSE 76; RESP 22; TEMP 97.9; O2SAT 95
== END 2018-01-02 08:00 | DRG 885 ==
LOC: H4EA 18:45 → H250 12-03 15:51 → H4EA 12-24 10:55 → H260 12-26 15:26
PROVIDERS: ADMIT Psychiatry & Neurology Psychiatry; ATTEND Psychiatry & Neurology Psychiatry
DX: F25.1 Schizoaffective disorder, depressive type (principal); I48.91 Unspecified atrial fibrillation; J44.9 Chronic obstructive pulmonary disease, unspecified; I10 Essential (primary) hypertension; Z91.19 Patient's noncompliance with other medical treatment and regimen; Z91.14 Patient's other noncompliance with medication regimen; E78.5 Hyperlipidemia, unspecified; F17.200 Nicotine dependence, unspecified, uncomplicated; R26.9 Unspecified abnormalities of gait and mobility
CPT/HCPCS: 80048; 80076; 82550; 82652; 83605; 85025; 93005; J1200; J1630; J2060; J3486